=== PATIENT | female | born 1950 | race Caucasian/White ===

== ENCOUNTER 2016-10-07 12:32 | Emergency (ER) | payer MEDICARE, OTHER ==
[2016-10-07 12:38] VITALS: RESP 18
[2016-10-07] MEDS ORDERED: HYDROmorphone 1 MG/ML 1 ML SYRINGE IM STA (12:57)
[2016-10-07] MEDS ORDERED: KETOROLAC 60 MG/2 ML VIAL IM STA (12:57)
--- NOTE | 2016-10-07 13:02 | ED ---
General Adult HPI - General Chief complaint: Back Pain/Injury Stated complaint: Foot Numbness Time Seen by Provider: 10/07/16 12:50 Source: patient, EMS, RN notes reviewed Mode of arrival: EMS Limitations: no limitations - History of Present Illness Initial comments: Patient 66-year-old female seen in the past medical history for chronic back pain, who presents emergency room today by EMS, the chief complaint of exacerbation of her chronic pain. She states she's recently moved. States she' s been going up and down steps and lifting things. States she's had increased pain to the left leg radiating down to her foot. Numbness and tingling sensation. Patient does admit that she sees a neurologist through [facility]. She states she called and was advised coming here to the emergency room visit for pain. Patient states she is taking [place] times at home with little relief. She denies any other complaints or associated symptoms. Denies any bowel or bladder incontinence retention. Denies any saddle she's. Patient does admit that she can take Toradol but only 30 mg IM shot. Requesting Toradol and Dilaudid here in the emergency room for her pain. Patient denies any recent fever, chills, shortness of breath, chest pain, abdominal pain, nausea or vomiting, dysuria or hematuria, constipation or diarrhea, headaches or visual changes, or any other complaints. - Related Data Home Medications Medication Instructions Recorded Confirmed Aspirin EC [Ecotrin Low Dose] 81 mg PO DAILY 04/09/16 05/05/16 Aspirin/Acetaminophen/Caffeine 1 tab PO Q12H PRN 04/09/16 05/05/16 [Excedrin Migraine Caplet] DULoxetine HCL [Cymbalta] 120 mg PO QAM 04/09/16 05/05/16 HYDROcodone/APAP 10-325MG [[place] 1 tab PO Q6H PRN 04/09/16 05/05/16 10-325] Metoprolol Tartrate [Lopressor] 25 mg PO BID 04/09/16 05/05/16 Pantoprazole Sodium [Protonix] 40 mg PO BID 04/09/16 05/05/16 Sucralfate [Carafate] 1 gm PO BID 04/09/16 05/05/16 valACYclovir [Valtrex] 500 mg PO BID 04/09/16 05/05/16 Diazepam [Valium] 5 mg PO TID 05/04/16 05/05/16 Levothyroxine Sodium [Synthroid] 75 mcg PO DAILY 05/04/16 05/05/16 Losartan [Cozaar] 50 mg PO DAILY 05/04/16 05/05/16 Ondansetron [Zofran] 4 mg PO TID PRN 05/04/16 05/05/16 Pain Management Cream 1 - 2 gm TOPICAL QID 05/04/16 05/05/16 diphenhydrAMINE [Benadryl] 25 mg PO HS PRN 05/04/16 05/05/16 buPROPion SR [Wellbutrin Sr] 300 mg PO BID 05/05/16 05/05/16 Previous Rx's Medication Instructions Recorded Hydrochlorothiazide 12.5 mg PO DAILY 10 Days 03/05/16 Allergies Allergy/AdvReac Type Severity Reaction Status Date / Time baclofen Allergy Unknown Verified 05/04/16 20:34 ketorolac [From Toradol] Allergy Unknown Verified 05/04/16 20:34 meperidine [From Demerol] Allergy Unknown Verified 05/04/16 20:34 metoclopramide [From Reglan] Allergy Unknown Verified 05/04/16 20:34 metronidazole [From Flagyl] Allergy Unknown Verified 05/04/16 20:34 morphine Allergy Unknown Verified 05/04/16 20:34 papaya Allergy Unknown Verified 05/04/16 20:34 prednisone Allergy Unknown Verified 05/04/16 20:34 prochlorperazine Allergy Unknown Verified 05/04/16 20:34 [From Compazine] venom-honey bee Allergy Anaphylaxis Verified 05/04/16 20:34 [bee venom (honey bee)] ciprofloxacin [From Cipro] AdvReac INTERACTION Verified 05/04/16 20:34 WITH CYMBALTA trazodone AdvReac SLEEP Verified 05/04/16 20:34 WALKING Review of Systems ROS Statement: Those systems with pertinent positive or pertinent negative responses have been documented in the HPI. ROS Other: All systems not noted in ROS Statement are negative. Past Medical History Past Medical History: Asthma, Cancer, COPD, GERD/Reflux, Hypertension, Pneumonia , Thyroid Disorder Additional Past Medical History / Comment(s): shingles, RT BREAST LUMPECTOMY/ CANCER, THYROID REMOVE, CATARACTS, BRONCHITIS, MONO TEENAGER, LITE CASE OF POLIO AGE 8, MELANOMA SKIN CANCER REMOVED, History of Any Multi-Drug Resistant Organisms: MRSA Date of last positivie culture/infection: 2009 MDRO Source:: LEFT ULNAR BONE Past Surgical History: Appendectomy, Back Surgery, Cholecystectomy, Orthopedic Surgery Additional Past Surgical History / Comment(s): EYE SX FOR LAZY EYE, SX ON TEAR DUCTS, BACK SURGERY MICRO DISC, LT WRIST BROKEN 7 GALLO HAD 13 Surgeries TO CORRECT, left shoulder and humorous shattered from a fall with 2 surgeries to correct, LAPROSCOPIES- BENIGN TUNOR SIZE OF GRAPFRUIT REMOVED AGE 11 OR 1, RT BREAST BX/LUMPECTOMY,LT PINK FINGER SX TO STRAIGHTEN.MELANOMA SKIN CANCER REMOVED. Past Anesthesia/Blood Transfusion Reactions: No Reported Reaction Additional Past Anesthesia/Blood Transfusion Reaction / Comment(s): CLAUSTERPHOBIA Past Psychological History: Anxiety, Depression, PTSD Smoking Status: Never smoker Past Alcohol Use History: Occasional Past Drug Use History: None Reported - Past Family History Mother Family Medical History: Asthma Additional Family Medical History / Comment(s): ETOH/SMOKER Father Family Medical History: Cancer, Liver Disease Additional Family Medical History / Comment(s): ESOPHOGEAL CANCER, ETOH General Exam - General Exam Comments Initial Comments: General: The patient is awake and alert, in no distress, and does not appear acutely ill. Eye: Pupils are equal, round and reactive to light, extra-ocular movements are intact. No nystagmus. There is normal conjunctiva bilaterally. No signs of icterus. Ears, nose, mouth and throat: There are moist mucous membranes and no oral lesions. Neck: The neck is supple, there is no tenderness or JVD. Cardiovascular: There is a regular rate and rhythm. No murmur, rub or gallop is appreciated. Respiratory: Lungs are clear to auscultation, respirations are non-labored, breath sounds are equal. No wheezes, stridor, rales, or rhonchi. Gastrointestinal: Soft, non-distended, non-tender abdomen without masses or organomegaly noted. There is no rebound or guarding present. No CVA tenderness. Bowel sounds are unremarkable. Musculoskeletal: Normal ROM, no tenderness. Strength 5/5. Sensation intact. Pulses equal bilaterally 2+. Shows full range of motion of the left leg and foot. Sensation intact to light touch. Neurological: A&O x 3. CN II-XII intact, There are no obvious motor or sensory deficits. Coordination appears grossly intact. Speech is normal. Skin: Skin is warm and dry and no rashes or lesions are noted. Psychiatric: Cooperative, appropriate mood & affect, normal judgment. Limitations: no limitations Course Vital Signs 10/07/16 12:34 Temperature 97.5 F L Pulse Rate 74 Respiratory 18 Rate Blood Pressure 134/63 O2 Sat by Pulse 100 Oximetry Medical Decision Making - Medical Decision Making Patient given shots of Dilaudid and Toradol here in the emergency room. Patient states she cannot Toradol 30 mg IM. Patient will be discharged home advised to continue with her [place]. Advised follow-up urologist. Advised return here to emergency room if any symptoms increase or worsen or for any other concerns. Disposition Clinical Impression: Acute exacerbation of chronic low back pain Disposition: HOME SELF-CARE Condition: Good Instructions: Acute Low Back Pain (ED) Additional Instructions: Please follow-up with neurologist/family doctor in the next 2 days of symptoms have not improved. Please return to emergency room if the symptoms increase or worsen or for any other concerns. Referrals: Abhishek Pink DO [Primary Care Provider] - 1-2 days Time of Disposition: 13:20
[2016-10-07 14:22] VITALS: BP 165/82; PULSE 69; TEMP 97.3
== END 2016-10-07 14:22 | disposition home or self-care (01) ==
LOC: EEVIPCON 12:32 → EC 12:32
DX: G89.29 Other chronic pain (principal); M54.5 Low back pain; K21.9 Gastro-esophageal reflux disease without esophagitis; I10 Essential (primary) hypertension; E07.9 Disorder of thyroid, unspecified; F32.9 Major depressive disorder, single episode, unspecified; F41.9 Anxiety disorder, unspecified; Z79.82 Long term (current) use of aspirin; Z79.899 Other long term (current) drug therapy; Z88.8 Allergy status to other drugs, medicaments and biological substances; Z88.5 Allergy status to narcotic agent; Z88.6 Allergy status to analgesic agent; Z91.018 Allergy to other foods; Z88.1 Allergy status to other antibiotic agents; Z91.030 Bee allergy status; Z87.01 Personal history of pneumonia (recurrent); Z85.820 Personal history of malignant melanoma of skin
CPT/HCPCS: 99284; 96372 ×2; J1885; J1170

== ENCOUNTER 2016-10-09 02:30 | Emergency (ER) | payer MEDICARE, OTHER ==
[2016-10-09 02:39] VITALS: BP 136/63; PULSE 74; RESP 18; TEMP 98.7
[2016-10-09] MEDS ORDERED: ORPHENADRINE 30 MG/ML 2 ML VIAL IM STA (02:44)
--- NOTE | 2016-10-09 02:59 | ED ---
Back Pain HPI - General Chief Complaint: Back Pain/Injury Stated Complaint: chronic pain Time Seen by Provider: 10/09/16 02:40 Source: patient, RN notes reviewed Limitations: no limitations - History of Present Illness Initial Comments: 66-year-old female presents emergency Department with a chief complaint of left foot numbness. Patient was seen here 2 days ago for similar complaint. Patient states she tripped on the stairs. Patient states that she does suffer from chronic low back pain. Patient states she was concerned due to her symptoms so she thought that she should be evaluated. Patient states she's had no nausea vomiting or diarrhea with this. Patient states the above bladder function no saddle anesthesia. Patient states that where she lives makes her walk up and down the stairs which is irritating her back causing her to have increased numbness and tingling compared to normal. She states the numbness tingling in his typical of her back pain but the fall made her concerned. Patient states the pain is moderate. Patient states she is not currently having any other symptoms at this time.Patient denies any recent fever, chills, shortness of breath, chest pain, back pain, abdominal pain, nausea vomiting, numbness or tingling, dysuria or hematuria, constipation or diarrhea, headaches or visual changes, or any other current symptoms. - Related Data Home Medications Medication Instructions Recorded Confirmed Aspirin EC [Ecotrin Low Dose] 81 mg PO DAILY 04/09/16 05/05/16 Aspirin/Acetaminophen/Caffeine 1 tab PO Q12H PRN 04/09/16 05/05/16 [Excedrin Migraine Caplet] DULoxetine HCL [Cymbalta] 120 mg PO QAM 04/09/16 05/05/16 HYDROcodone/APAP 10-325MG [[place] 1 tab PO Q6H PRN 04/09/16 05/05/16 10-325] Metoprolol Tartrate [Lopressor] 25 mg PO BID 04/09/16 05/05/16 Pantoprazole Sodium [Protonix] 40 mg PO BID 04/09/16 05/05/16 Sucralfate [Carafate] 1 gm PO BID 04/09/16 05/05/16 valACYclovir [Valtrex] 500 mg PO BID 04/09/16 05/05/16 Diazepam [Valium] 5 mg PO TID 05/04/16 05/05/16 Levothyroxine Sodium [Synthroid] 75 mcg PO DAILY 05/04/16 05/05/16 Losartan [Cozaar] 50 mg PO DAILY 05/04/16 05/05/16 Ondansetron [Zofran] 4 mg PO TID PRN 05/04/16 05/05/16 Pain Management Cream 1 - 2 gm TOPICAL QID 05/04/16 05/05/16 diphenhydrAMINE [Benadryl] 25 mg PO HS PRN 05/04/16 05/05/16 buPROPion SR [Wellbutrin Sr] 300 mg PO BID 05/05/16 05/05/16 Previous Rx's Medication Instructions Recorded Hydrochlorothiazide 12.5 mg PO DAILY 10 Days 03/05/16 DULoxetine HCL [Cymbalta] 120 mg PO DAILY 5 Days 10/07/16 Allergies Allergy/AdvReac Type Severity Reaction Status Date / Time baclofen Allergy Unknown Verified 10/09/16 02:37 ketorolac [From Toradol] Allergy Unknown Verified 10/09/16 02:37 meperidine [From Demerol] Allergy Unknown Verified 10/09/16 02:37 metoclopramide [From Reglan] Allergy Unknown Verified 10/09/16 02:37 metronidazole [From Flagyl] Allergy Unknown Verified 10/09/16 02:37 morphine Allergy Unknown Verified 10/09/16 02:37 papaya Allergy Unknown Verified 10/09/16 02:37 prednisone Allergy Unknown Verified 10/09/16 02:37 prochlorperazine Allergy Unknown Verified 10/09/16 02:37 [From Compazine] venom-honey bee Allergy Anaphylaxis Verified 10/09/16 02:37 [bee venom (honey bee)] ciprofloxacin [From Cipro] AdvReac INTERACTION Verified 10/09/16 02:37 WITH CYMBALTA trazodone AdvReac SLEEP Verified 10/09/16 02:37 WALKING Review of Systems ROS Statement: Those systems with pertinent positive or pertinent negative responses have been documented in the HPI. ROS Other: All systems not noted in ROS Statement are negative. Past Medical History Past Medical History: Asthma, Cancer, COPD, GERD/Reflux, Hypertension, Pneumonia , Thyroid Disorder Additional Past Medical History / Comment(s): shingles, RT BREAST LUMPECTOMY/ CANCER, THYROID REMOVE, CATARACTS, BRONCHITIS, MONO TEENAGER, LITE CASE OF POLIO AGE 8, MELANOMA SKIN CANCER REMOVED, History of Any Multi-Drug Resistant Organisms: MRSA Date of last positivie culture/infection: 2009 MDRO Source:: LEFT ULNAR BONE Past Surgical History: Appendectomy, Back Surgery, Cholecystectomy, Orthopedic Surgery Additional Past Surgical History / Comment(s): EYE SX FOR LAZY EYE, SX ON TEAR DUCTS, BACK SURGERY MICRO DISC, LT WRIST BROKEN 9 GALLO HAD 13 Surgeries TO CORRECT, left shoulder and humorous shattered from a fall with 2 surgeries to correct, LAPROSCOPIES- BENIGN TUNOR SIZE OF GRAPFRUIT REMOVED AGE 11 OR 1, RT BREAST BX/LUMPECTOMY,LT PINK FINGER SX TO STRAIGHTEN.MELANOMA SKIN CANCER REMOVED. Past Anesthesia/Blood Transfusion Reactions: No Reported Reaction Additional Past Anesthesia/Blood Transfusion Reaction / Comment(s): CLAUSTERPHOBIA Past Psychological History: Anxiety, Depression, PTSD Smoking Status: Never smoker Past Alcohol Use History: Occasional Past Drug Use History: None Reported - Past Family History Mother Family Medical History: Asthma Additional Family Medical History / Comment(s): ETOH/SMOKER Father Family Medical History: Cancer, Liver Disease Additional Family Medical History / Comment(s): ESOPHOGEAL CANCER, ETOH General Exam Limitations: no limitations General appearance: alert, in no apparent distress Head exam: Present: atraumatic, normocephalic, normal inspection Neck exam: Present: normal inspection. Absent: tenderness, meningismus, lymphadenopathy Respiratory exam: Present: normal lung sounds bilaterally. Absent: respiratory distress, wheezes, rales, rhonchi, stridor Cardiovascular Exam: Present: regular rate, normal rhythm, normal heart sounds. Absent: systolic murmur, diastolic murmur, rubs, gallop, clicks GI/Abdominal exam: Present: soft, normal bowel sounds. Absent: distended, tenderness, guarding, rebound, rigid Back exam: Present: normal inspection, full ROM. Absent: tenderness Neurological exam: Present: alert, oriented X3 Psychiatric exam: Present: normal affect, normal mood Course Vital Signs 10/09/16 02:37 Temperature 98.7 F Pulse Rate 74 Respiratory 18 Rate Blood Pressure 136/63 O2 Sat by Pulse 99 Oximetry Medical Decision Making - Medical Decision Making 58-year-old female presents to the emergency department with a chief complaint of back pain. This time x-rays reviewed and negative. Patient was given an injection of Norflex. We discussed follow-up with her Dr. irma zamoarno. We discussed all the patient's questions. She stated that she understood and she is in agreement with plan. This time she will be discharged home. - Radiology Data Radiology results: report reviewed, image reviewed Disposition Clinical Impression: Acute exacerbation of chronic low back pain Disposition: HOME SELF-CARE Condition: Stable Instructions: Chronic Back Pain (ED) Additional Instructions: Please use medication as discussed. Please follow up with family doctor if symptoms have not improved over the next two days. Please return to the emergency room if your symptoms increase or worsen or for any other concerns. Referrals: Abhishek Pink DO [Primary Care Provider] - 1-2 days Time of Disposition: 03:14
--- NOTE | 2016-10-09 03:12 | XR ---
EXAM: XR Lumbar Spine, 2 or 3 Views CLINICAL HISTORY: Reason: Pain TECHNIQUE: Frontal and lateral views of the lumbar spine. COMPARISON: No relevant prior studies available. FINDINGS: Vertebrae: The bones are osteopenic. Vertebral body heights and alignment are maintained. Mild lower thoracic and lumbar spondylosis, probably greatest at the L5-S1 level where there is associated disc space narrowing and endplate degenerative change. Mild rightward curvature of the lumbar spine. No acute fracture. Disc spaces: See above. Soft tissues: Right upper quadrant clips suggesting cholecystectomy. Ovoid 7 mm radiodense focus overlies the left iliac wing on the frontal view, not seen on the 2 lateral views, may be within bowel or overlying soft tissue such as an injection granuloma versus intraosseous. Gastrointestinal tract: Moderate to large volume of colonic stool present, where included. IMPRESSION: 1. Osteopenia with mild dextroscoliosis and spondylosis. No acute fracture or listhesis. 2. Additional findings includes moderate to large colonic stool burden, as above.
== END 2016-10-09 03:28 | disposition home or self-care (01) ==
LOC: EC 02:30
DX: G89.29 Other chronic pain (principal); M54.5 Low back pain; I10 Essential (primary) hypertension; E07.9 Disorder of thyroid, unspecified; F32.9 Major depressive disorder, single episode, unspecified; Z88.5 Allergy status to narcotic agent; Z91.030 Bee allergy status; Z88.1 Allergy status to other antibiotic agents; Z91.018 Allergy to other foods; Z88.6 Allergy status to analgesic agent; Z88.8 Allergy status to other drugs, medicaments and biological substances; Z79.82 Long term (current) use of aspirin; Z79.899 Other long term (current) drug therapy
CPT/HCPCS: 99283; 96372; 72100; J2360

== ENCOUNTER 2016-11-01 06:10 | Emergency (ER) | payer MEDICARE, OTHER ==
[2016-11-01 06:14] VITALS: RESP 16
[2016-11-01] MEDS ORDERED: KETOROLAC 60 MG/2 ML VIAL IM STA (06:39)
--- NOTE | 2016-11-01 06:45 | ED ---
General Adult HPI - General Chief complaint: Back Pain/Injury Stated complaint: back pain Time Seen by Provider: 11/01/16 06:26 Source: patient, EMS, RN notes reviewed Mode of arrival: EMS Limitations: no limitations - History of Present Illness Initial comments: Patient is a pleasant 66-year-old female presenting to the emergency department with complaints of back and neck pain. Patient has chronic back pain and chronic neck pain. Patient did have a recent fall. Patient also states symptoms are worse from lifting a bag of groceries the other day. Patient is ambulatory without difficulty. Patient has had recent x-rays following her fall. Patient requests a shot of Dilaudid. Patient's guardian did call requesting no narcotics and no benzos be provided. Patient states she can have Toradol as an injection. Patient states she does have an appointment with her new primary care physician today. No weakness. No loss of control of bowel or bladder. Symptoms are chronic. - Related Data Home Medications Medication Instructions Recorded Confirmed Aspirin EC [Ecotrin Low Dose] 81 mg PO DAILY 04/09/16 05/05/16 Aspirin/Acetaminophen/Caffeine 1 tab PO Q12H PRN 04/09/16 05/05/16 [Excedrin Migraine Caplet] DULoxetine HCL [Cymbalta] 120 mg PO QAM 04/09/16 05/05/16 HYDROcodone/APAP 10-325MG [[place] 1 tab PO Q6H PRN 04/09/16 05/05/16 10-325] Metoprolol Tartrate [Lopressor] 25 mg PO BID 04/09/16 05/05/16 Pantoprazole Sodium [Protonix] 40 mg PO BID 04/09/16 05/05/16 Sucralfate [Carafate] 1 gm PO BID 04/09/16 05/05/16 valACYclovir [Valtrex] 500 mg PO BID 04/09/16 05/05/16 Diazepam [Valium] 5 mg PO TID 05/04/16 05/05/16 Levothyroxine Sodium [Synthroid] 75 mcg PO DAILY 05/04/16 05/05/16 Losartan [Cozaar] 50 mg PO DAILY 05/04/16 05/05/16 Ondansetron [Zofran] 4 mg PO TID PRN 05/04/16 05/05/16 Pain Management Cream 1 - 2 gm TOPICAL QID 05/04/16 05/05/16 diphenhydrAMINE [Benadryl] 25 mg PO HS PRN 05/04/16 05/05/16 buPROPion SR [Wellbutrin Sr] 300 mg PO BID 05/05/16 05/05/16 Previous Rx's Medication Instructions Recorded Hydrochlorothiazide 12.5 mg PO DAILY 10 Days 03/05/16 DULoxetine HCL [Cymbalta] 120 mg PO DAILY 5 Days 10/07/16 Allergies Allergy/AdvReac Type Severity Reaction Status Date / Time baclofen Allergy Unknown Verified 11/01/16 06:11 ketorolac [From Toradol] Allergy Unknown Verified 11/01/16 06:11 meperidine [From Demerol] Allergy Unknown Verified 11/01/16 06:11 metoclopramide [From Reglan] Allergy Unknown Verified 11/01/16 06:11 metronidazole [From Flagyl] Allergy Unknown Verified 11/01/16 06:11 morphine Allergy Unknown Verified 11/01/16 06:11 papaya Allergy Unknown Verified 11/01/16 06:11 prednisone Allergy Unknown Verified 11/01/16 06:11 prochlorperazine Allergy Unknown Verified 11/01/16 06:11 [From Compazine] venom-honey bee Allergy Anaphylaxis Verified 11/01/16 06:11 [bee venom (honey bee)] ciprofloxacin [From Cipro] AdvReac INTERACTION Verified 11/01/16 06:11 WITH CYMBALTA trazodone AdvReac SLEEP Verified 11/01/16 06:11 WALKING Review of Systems ROS Statement: Those systems with pertinent positive or pertinent negative responses have been documented in the HPI. ROS Other: All systems not noted in ROS Statement are negative. Constitutional: Denies: fever Eyes: Denies: eye pain ENT: Denies: ear pain Respiratory: Denies: cough Cardiovascular: Denies: chest pain Endocrine: Denies: fatigue Gastrointestinal: Denies: abdominal pain Genitourinary: Denies: dysuria Musculoskeletal: Reports: back pain Skin: Denies: rash Neurological: Denies: weakness, numbness, paresthesias Past Medical History Past Medical History: Asthma, Cancer, COPD, GERD/Reflux, Hypertension, Pneumonia , Thyroid Disorder Additional Past Medical History / Comment(s): shingles, RT BREAST LUMPECTOMY/ CANCER, THYROID REMOVE, CATARACTS, BRONCHITIS, MONO TEENAGER, LITE CASE OF POLIO AGE 8, MELANOMA SKIN CANCER REMOVED, History of Any Multi-Drug Resistant Organisms: MRSA Date of last positivie culture/infection: 2009 MDRO Source:: LEFT ULNAR BONE Past Surgical History: Appendectomy, Back Surgery, Cholecystectomy, Orthopedic Surgery Additional Past Surgical History / Comment(s): EYE SX FOR LAZY EYE, SX ON TEAR DUCTS, BACK SURGERY MICRO DISC, LT WRIST BROKEN 9 GALLO HAD 13 Surgeries TO CORRECT, left shoulder and humorous shattered from a fall with 2 surgeries to correct, LAPROSCOPIES- BENIGN TUNOR SIZE OF GRAPFRUIT REMOVED AGE 11 OR 1, RT BREAST BX/LUMPECTOMY,LT PINK FINGER SX TO STRAIGHTEN.MELANOMA SKIN CANCER REMOVED. Past Anesthesia/Blood Transfusion Reactions: No Reported Reaction Additional Past Anesthesia/Blood Transfusion Reaction / Comment(s): CLAUSTERPHOBIA Past Psychological History: Anxiety, Depression, PTSD Smoking Status: Never smoker Past Alcohol Use History: Occasional Past Drug Use History: None Reported - Past Family History Mother Family Medical History: Asthma Additional Family Medical History / Comment(s): ETOH/SMOKER Father Family Medical History: Cancer, Liver Disease Additional Family Medical History / Comment(s): ESOPHOGEAL CANCER, ETOH General Exam Limitations: no limitations General appearance: alert, in no apparent distress Head exam: Present: atraumatic Eye exam: Present: normal appearance, PERRL ENT exam: Present: normal oropharynx Neck exam: Present: normal inspection. Absent: tenderness Respiratory exam: Present: normal lung sounds bilaterally Cardiovascular Exam: Present: regular rate, normal rhythm GI/Abdominal exam: Present: soft. Absent: tenderness Extremities exam: Present: normal inspection Back exam: Present: tenderness (Mild tenderness to the lumbar spine) Neurological exam: Present: alert. Absent: motor sensory deficit Expanded Sensory exam: Upper Extremity Light Touch: Normal, Lower Extremity Light Touch: Normal Motor strength exam: RUE: 5, LUE: 5, RLE: 5, LLE: 5 Psychiatric exam: Present: normal affect, normal mood Skin exam: Present: normal color Course Vital Signs 11/01/16 06:11 Temperature 98.2 F Pulse Rate 70 Respiratory 16 Rate Blood Pressure 143/65 O2 Sat by Pulse 96 Oximetry Disposition Clinical Impression: Low back pain, Neck pain Disposition: HOME SELF-CARE Condition: Stable Instructions: Chronic Back Pain (ED) Additional Instructions: Please follow-up with your doctor today as planned. Return for weakness, loss of control of bowel or bladder, worsening or changing symptoms or other concerns. Referrals: Abhishek Pink DO [Primary Care Provider] - 1-2 days Time of Disposition: 06:44
[2016-11-01 06:47] VITALS: BP 132/60; PULSE 80; TEMP 97.9
== END 2016-11-01 06:50 | disposition home or self-care (01) ==
LOC: EC 06:10
DX: M54.5 Low back pain (principal); M54.2 Cervicalgia; I10 Essential (primary) hypertension; E07.9 Disorder of thyroid, unspecified; F41.9 Anxiety disorder, unspecified; F32.9 Major depressive disorder, single episode, unspecified; F43.10 Post-traumatic stress disorder, unspecified; K21.9 Gastro-esophageal reflux disease without esophagitis; Z86.14 Personal history of Methicillin resistant Staphylococcus aureus infection; Z79.82 Long term (current) use of aspirin; Z79.899 Other long term (current) drug therapy; Z88.1 Allergy status to other antibiotic agents; Z88.5 Allergy status to narcotic agent; Z88.6 Allergy status to analgesic agent; Z88.8 Allergy status to other drugs, medicaments and biological substances; Z91.018 Allergy to other foods; Z91.040 Latex allergy status; X50.0XXA Overexertion from strenuous movement or load, initial encounter; W19.XXXA Unspecified fall, initial encounter
CPT/HCPCS: 99283; 96372; J1885

== ENCOUNTER 2016-11-14 06:11 | Emergency (ER) | payer MEDICARE, OTHER ==
[2016-11-14 06:14] VITALS: RESP 16
--- NOTE | 2016-11-14 06:21 | ED ---
General Adult HPI - General Source: EMS, RN notes reviewed, old records reviewed Mode of arrival: EMS Limitations: no limitations <Noah Martinez - Last Filed: 11/14/16 06:21> <Noah Quiñonez - Last Filed: 11/14/16 07:34> - General Chief complaint: Back Pain/Injury Stated complaint: Back Pain Time Seen by Provider: 11/14/16 06:13 - History of Present Illness Initial comments: This is a 58-year-old female to the ER for evaluation. Patient presents to the ER today for evaluation of back pain. Severe pain. Chronic pain issues. Patient states she has a history of chronic pain in all pain medication is not helping at this time. No new injuries or trauma. Although she states she had do some extra work yesterday when packing a suitcase. Again no fevers no trauma. (Noah Martinez) - Related Data Home Medications Medication Instructions Recorded Confirmed Aspirin EC [Ecotrin Low Dose] 81 mg PO DAILY 04/09/16 05/05/16 Aspirin/Acetaminophen/Caffeine 1 tab PO Q12H PRN 04/09/16 05/05/16 [Excedrin Migraine Caplet] DULoxetine HCL [Cymbalta] 120 mg PO QAM 04/09/16 05/05/16 HYDROcodone/APAP 10-325MG [[place] 1 tab PO Q6H PRN 04/09/16 05/05/16 10-325] Metoprolol Tartrate [Lopressor] 25 mg PO BID 04/09/16 05/05/16 Pantoprazole Sodium [Protonix] 40 mg PO BID 04/09/16 05/05/16 Sucralfate [Carafate] 1 gm PO BID 04/09/16 05/05/16 valACYclovir [Valtrex] 500 mg PO BID 04/09/16 05/05/16 Diazepam [Valium] 5 mg PO TID 05/04/16 05/05/16 Levothyroxine Sodium [Synthroid] 75 mcg PO DAILY 05/04/16 05/05/16 Losartan [Cozaar] 50 mg PO DAILY 05/04/16 05/05/16 Ondansetron [Zofran] 4 mg PO TID PRN 05/04/16 05/05/16 Pain Management Cream 1 - 2 gm TOPICAL QID 05/04/16 05/05/16 diphenhydrAMINE [Benadryl] 25 mg PO HS PRN 05/04/16 05/05/16 buPROPion SR [Wellbutrin Sr] 300 mg PO BID 05/05/16 05/05/16 Previous Rx's Medication Instructions Recorded Hydrochlorothiazide 12.5 mg PO DAILY 10 Days 03/05/16 DULoxetine HCL [Cymbalta] 120 mg PO DAILY 5 Days 10/07/16 Allergies Allergy/AdvReac Type Severity Reaction Status Date / Time baclofen Allergy Unknown Verified 11/14/16 06:12 ketorolac [From Toradol] Allergy Unknown Verified 11/14/16 06:12 meperidine [From Demerol] Allergy Unknown Verified 11/14/16 06:12 metoclopramide [From Reglan] Allergy Unknown Verified 11/14/16 06:12 metronidazole [From Flagyl] Allergy Unknown Verified 11/14/16 06:12 morphine Allergy Unknown Verified 11/14/16 06:12 papaya Allergy Unknown Verified 11/14/16 06:12 prednisone Allergy Unknown Verified 11/14/16 06:12 prochlorperazine Allergy Unknown Verified 11/14/16 06:12 [From Compazine] venom-honey bee Allergy Anaphylaxis Verified 11/14/16 06:12 [bee venom (honey bee)] ciprofloxacin [From Cipro] AdvReac INTERACTION Verified 11/14/16 06:12 WITH CYMBALTA trazodone AdvReac SLEEP Verified 11/14/16 06:12 WALKING Review of Systems ROS Other: All systems not noted in ROS Statement are negative. <Noah Martinez - Last Filed: 11/14/16 06:21> ROS Other: All systems not noted in ROS Statement are negative. <Noah Quiñonez - Last Filed: 11/14/16 07:34> ROS Statement: Those systems with pertinent positive or pertinent negative responses have been documented in the HPI. Past Medical History Past Medical History: Asthma, Cancer, COPD, GERD/Reflux, Hypertension, Pneumonia , Thyroid Disorder Additional Past Medical History / Comment(s): shingles, RT BREAST LUMPECTOMY/ CANCER, THYROID REMOVE, CATARACTS, BRONCHITIS, MONO TEENAGER, LITE CASE OF POLIO AGE 8, MELANOMA SKIN CANCER REMOVED, History of Any Multi-Drug Resistant Organisms: MRSA Date of last positivie culture/infection: 2009 MDRO Source:: LEFT ULNAR BONE Past Surgical History: Appendectomy, Back Surgery, Cholecystectomy, Orthopedic Surgery Additional Past Surgical History / Comment(s): EYE SX FOR LAZY EYE, SX ON TEAR DUCTS, BACK SURGERY MICRO DISC, LT WRIST BROKEN 9 GALLO HAD 13 Surgeries TO CORRECT, left shoulder and humorous shattered from a fall with 2 surgeries to correct, LAPROSCOPIES- BENIGN TUNOR SIZE OF GRAPFRUIT REMOVED AGE 11 OR 1, RT BREAST BX/LUMPECTOMY,LT PINK FINGER SX TO STRAIGHTEN.MELANOMA SKIN CANCER REMOVED. Past Anesthesia/Blood Transfusion Reactions: No Reported Reaction Additional Past Anesthesia/Blood Transfusion Reaction / Comment(s): CLAUSTERPHOBIA Past Psychological History: Anxiety, Depression, PTSD Smoking Status: Never smoker Past Alcohol Use History: Occasional Past Drug Use History: None Reported - Past Family History Mother Family Medical History: Asthma Additional Family Medical History / Comment(s): ETOH/SMOKER Father Family Medical History: Cancer, Liver Disease Additional Family Medical History / Comment(s): ESOPHOGEAL CANCER, ETOH <Noah Martinez - Last Filed: 11/14/16 06:21> General Exam Limitations: no limitations General appearance: alert, in no apparent distress Head exam: Present: atraumatic, normocephalic, normal inspection Eye exam: Present: normal appearance, PERRL, EOMI. Absent: scleral icterus, conjunctival injection, periorbital swelling ENT exam: Present: normal exam, mucous membranes moist Neck exam: Present: normal inspection. Absent: tenderness, meningismus, lymphadenopathy Respiratory exam: Present: normal lung sounds bilaterally. Absent: respiratory distress, wheezes, rales, rhonchi, stridor Cardiovascular Exam: Present: regular rate, normal rhythm, normal heart sounds. Absent: systolic murmur, diastolic murmur, rubs, gallop, clicks GI/Abdominal exam: Present: soft, normal bowel sounds. Absent: distended, tenderness, guarding, rebound, rigid Extremities exam: Present: normal inspection, full ROM, normal capillary refill. Absent: tenderness, pedal edema, joint swelling, calf tenderness Back exam: Present: normal inspection Neurological exam: Present: alert, oriented X3, CN II-XII intact Psychiatric exam: Present: normal affect, normal mood Skin exam: Present: warm, dry, intact, normal color. Absent: rash <Noah Martinez - Last Filed: 11/14/16 06:21> Course <Noah Martinez - Last Filed: 11/14/16 06:21> <Naoh Quiñonez - Last Filed: 11/14/16 07:34> Vital Signs 11/14/16 06:12 Temperature 98.2 F Pulse Rate 68 Respiratory 16 Rate Blood Pressure 129/56 O2 Sat by Pulse 97 Oximetry - Reevaluation(s) Reevaluation #1: 11/14/16 06:21 Medically cleared for psychiatric evaluation (Noah Martinez) Reevaluation #2: 11/14/16 06:22 Unable to give patient's pain medication secondary to pain contract (Noah Martinez) Disposition <Noah Martinez - Last Filed: 11/14/16 06:21> Time of Disposition: 07:34 <Noah Quiñonez - Last Filed: 11/14/16 07:34> Clinical Impression: Chronic back pain Disposition: HOME SELF-CARE Instructions: Chronic Back Pain (ED) Referrals: Abhishek Pink DO [Primary Care Provider] - 1-2 days
[2016-11-14 08:10] VITALS: BP 120/64; PULSE 86; TEMP 98.1
== END 2016-11-14 08:14 | disposition home or self-care (01) ==
LOC: EC 06:11
DX: G89.29 Other chronic pain (principal); M54.9 Dorsalgia, unspecified; K21.9 Gastro-esophageal reflux disease without esophagitis; I10 Essential (primary) hypertension; F32.9 Major depressive disorder, single episode, unspecified; F41.9 Anxiety disorder, unspecified; F43.10 Post-traumatic stress disorder, unspecified; E07.9 Disorder of thyroid, unspecified; Z79.82 Long term (current) use of aspirin; Z79.899 Other long term (current) drug therapy; Z88.6 Allergy status to analgesic agent; Z88.5 Allergy status to narcotic agent; Z88.8 Allergy status to other drugs, medicaments and biological substances; Z91.030 Bee allergy status; Z88.1 Allergy status to other antibiotic agents; Z85.820 Personal history of malignant melanoma of skin; Z98.890 Other specified postprocedural states
CPT/HCPCS: 99284

== ENCOUNTER 2016-11-16 10:02 | Emergency (ER) | payer MEDICARE, OTHER ==
[2016-11-16] MEDS ORDERED: METHOCARBAMOL 750 MG TAB PO ONE (11:22)
[2016-11-16] MEDS ORDERED: ONDANSETRON ODT 4 MG TAB PO ONE (11:22)
[2016-11-16] MEDS ORDERED: KETOROLAC 30 MG/ML 1 ML VIAL IM ONE (11:22)
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
[2016-11-16 12:42] VITALS: BP 147/64; PULSE 57; RESP 19; TEMP 97.4
== END 2016-11-16 12:43 | disposition home or self-care (01) ==
LOC: EC 10:02
DX: G89.29 Other chronic pain (principal); M54.9 Dorsalgia, unspecified; M54.2 Cervicalgia; M25.572 Pain in left ankle and joints of left foot; J45.909 Unspecified asthma, uncomplicated; J44.9 Chronic obstructive pulmonary disease, unspecified; I10 Essential (primary) hypertension; K21.9 Gastro-esophageal reflux disease without esophagitis; E07.9 Disorder of thyroid, unspecified; Z85.828 Personal history of other malignant neoplasm of skin; Z86.14 Personal history of Methicillin resistant Staphylococcus aureus infection; Z87.891 Personal history of nicotine dependence; F41.9 Anxiety disorder, unspecified; F32.9 Major depressive disorder, single episode, unspecified; F43.10 Post-traumatic stress disorder, unspecified; Z79.51 Long term (current) use of inhaled steroids; Z79.82 Long term (current) use of aspirin; Z79.899 Other long term (current) drug therapy; Z88.1 Allergy status to other antibiotic agents; Z88.5 Allergy status to narcotic agent; Z88.6 Allergy status to analgesic agent; Z91.018 Allergy to other foods; Z91.030 Bee allergy status
CPT/HCPCS: 99283; 96372; J1885

== ENCOUNTER 2016-11-24 10:55 | Inpatient (IN) | payer MEDICARE, MEDICAID ==
--- NOTE | 2016-11-24 13:25 | ED ---
General Adult HPI - General Chief complaint: Psychiatric Symptoms Stated complaint: mental health Time Seen by Provider: 11/24/16 11:23 Source: patient, police, RN notes reviewed Mode of arrival: ambulatory Limitations: no limitations - History of Present Illness Initial comments: 58-year-old female who was petitioned by both police and her guardian for concerns about her ability to take care of herself and bizarre behavior. Patient has a known history of depression.. She has been refusing to eat or drink and has not been taking her medications appropriately at home. This morning she was being evaluated by social work and came aggressive. Police were called patient again was aggressive towards police. She was brought in for psychiatric evaluation clear history is unable to be obtained from the patient. She states she has been prescribed some psychiatric medication in the past including Cymbalta. She is complaining of left wrist pain which is chronic in nature status post multiple surgeries. She denies any jae suicidal or homicidal ideation but states she does feel aggression and would like to "step on people's feet". - Related Data Home Medications Medication Instructions Recorded Confirmed Aspirin EC [Ecotrin Low Dose] 81 mg PO DAILY 04/09/16 11/24/16 HYDROcodone/APAP 10-325MG [[place] 1 tab PO Q6H PRN 04/09/16 11/24/16 10-325] Pantoprazole Sodium [Protonix] 40 mg PO BID 04/09/16 11/24/16 Diazepam [Valium] 5 mg PO BID 05/04/16 11/24/16 diphenhydrAMINE [Benadryl] 50 mg PO Q4H PRN 05/04/16 11/24/16 EPINEPHrine [Epipen 2-River] 0.3 mg IM ONCE PRN 11/16/16 11/24/16 Fluticasone Nasal [place] [Flonase 1 spray EA NOSTRIL BID 11/16/16 11/24/16 Nasal [place]] Levothyroxine Sodium 88 mcg PO DAILY 11/16/16 11/24/16 Loratadine [Claritin] 10 mg PO DAILY 11/16/16 11/24/16 Methenamine Hippurate [Hiprex] 1 gm PO BID 11/16/16 11/24/16 Montelukast [Singulair] 10 mg PO HS 11/16/16 11/24/16 Multivitamins, Thera [Multivitamin 1 tab PO DAILY 11/16/16 11/24/16 (formulary)] Nitroglycerin Sl Tabs [Nitrostat] 0.4 mg SUBLINGUAL Q5M PRN 11/16/16 11/24/16 DULoxetine HCL [Cymbalta] 60 mg PO DAILY 11/24/16 11/24/16 Fluticasone Propionate [Flovent 1 puff INHALATION RT-BID 11/24/16 11/24/16 [place]] Losartan-Hctz 50-12.5 mg [Hyzaar 1 tab PO DAILY 11/24/16 11/24/16 50-12.5] Methocarbamol [Robaxin] 1,000 mg PO QID PRN 11/24/16 11/24/16 Metoprolol/Hydrochlorothiazide 1 tab PO BID 11/24/16 11/24/16 [Lopressor Hct 50-25 mg Tab] buPROPion HCL [Wellbutrin SR] 200 mg PO BID 11/24/16 11/24/16 Previous Rx's Medication Instructions Recorded Hydrochlorothiazide 12.5 mg PO DAILY 10 Days 03/05/16 Allergies Allergy/AdvReac Type Severity Reaction Status Date / Time baclofen Allergy Unknown Verified 11/24/16 14:19 ketorolac [From Toradol] Allergy Unknown Verified 11/24/16 14:19 meperidine [From Demerol] Allergy Unknown Verified 11/24/16 14:19 metoclopramide [From Reglan] Allergy Unknown Verified 11/24/16 14:19 metronidazole [From Flagyl] Allergy Unknown Verified 11/24/16 14:19 morphine Allergy Unknown Verified 11/24/16 14:19 papaya Allergy Unknown Verified 11/24/16 14:19 prednisone Allergy Unknown Verified 11/24/16 14:19 prochlorperazine Allergy Unknown Verified 11/24/16 14:19 [From Compazine] venom-honey bee Allergy Anaphylaxis Verified 11/24/16 14:19 [bee venom (honey bee)] ciprofloxacin [From Cipro] AdvReac INTERACTION Verified 11/24/16 14:19 WITH CYMBALTA trazodone AdvReac SLEEP Verified 11/24/16 14:19 WALKING gain Allergy Rash/Hives Uncoded 11/24/16 11:05 Review of Systems ROS Statement: Those systems with pertinent positive or pertinent negative responses have been documented in the HPI. ROS Other: All systems not noted in ROS Statement are negative. Past Medical History Past Medical History: Asthma, Cancer, COPD, GERD/Reflux, Hypertension, Pneumonia , Thyroid Disorder Additional Past Medical History / Comment(s): shingles, RT BREAST LUMPECTOMY/ CANCER, THYROID REMOVE, CATARACTS, BRONCHITIS, MONO TEENAGER, LITE CASE OF POLIO AGE 8, MELANOMA SKIN CANCER REMOVED, History of Any Multi-Drug Resistant Organisms: MRSA Date of last positivie culture/infection: 2009 MDRO Source:: LEFT ULNAR BONE Past Surgical History: Appendectomy, Back Surgery, Cholecystectomy, Orthopedic Surgery Additional Past Surgical History / Comment(s): EYE SX FOR LAZY EYE, SX ON TEAR DUCTS, BACK SURGERY MICRO DISC, LT WRIST BROKEN 9 AGLLO HAD 13 Surgeries TO CORRECT, left shoulder and humorous shattered from a fall with 2 surgeries to correct, LAPROSCOPIES- BENIGN TUNOR SIZE OF GRAPFRUIT REMOVED AGE 11 OR 1, RT BREAST BX/LUMPECTOMY,LT PINK FINGER SX TO STRAIGHTEN.MELANOMA SKIN CANCER REMOVED. Past Anesthesia/Blood Transfusion Reactions: No Reported Reaction Additional Past Anesthesia/Blood Transfusion Reaction / Comment(s): CLAUSTERPHOBIA Past Psychological History: Anxiety, Depression, PTSD Smoking Status: Never smoker Past Alcohol Use History: Occasional Past Drug Use History: None Reported - Past Family History Mother Family Medical History: Asthma Additional Family Medical History / Comment(s): ETOH/SMOKER Father Family Medical History: Cancer, Liver Disease Additional Family Medical History / Comment(s): ESOPHOGEAL CANCER, ETOH General Exam Limitations: no limitations General appearance: alert, in no apparent distress Head exam: Present: atraumatic, normocephalic Eye exam: Present: normal appearance, PERRL ENT exam: Present: mucous membranes moist Neck exam: Present: normal inspection, full ROM Respiratory exam: Present: normal lung sounds bilaterally. Absent: respiratory distress Cardiovascular Exam: Present: regular rate, normal rhythm GI/Abdominal exam: Present: soft. Absent: distended, tenderness Extremities exam: Present: normal inspection, normal capillary refill. Absent: pedal edema Neurological exam: Present: alert Psychiatric exam: Present: agitated, anxious. Absent: homicidal ideation, suicidal ideation Skin exam: Present: warm, dry Course Vital Signs 11/24/16 11:01 Pulse Rate 94 Respiratory 18 Rate Blood Pressure 139/68 O2 Sat by Pulse 100 Oximetry Medical Decision Making - Medical Decision Making 66-year-old female presenting after being petitioned by both her guardian and police for bizarre behavior and aggression. Patient is not eating or drinking and has not been taking her medications. She does deny suicidal or homicidal ideation. Blood alcohol level is nondetectable, urine drug screen is negative. Patient is currently medically cleared and awaiting psychiatric evaluation. Patient was evaluated by a psychiatric nurse in the emergency department. They agree that the patient should be admitted for further psychiatric care. - Lab Data Lab Results 11/24/16 Range/Units 11:45 Urine Opiates Screen Detected H (NotDetected) Ur Oxycodone Screen Not Detected (NotDetected) Urine Methadone Screen Not Detected (NotDetected) Ur Propoxyphene Screen Not Detected (NotDetected) Ur Barbiturates Screen Not Detected (NotDetected) U Tricyclic Antidepress Not Detected (NotDetected) Ur Phencyclidine Scrn Not Detected (NotDetected) Ur Amphetamines Screen Not Detected (NotDetected) U Methamphetamines Scrn Not Detected (NotDetected) U Benzodiazepines Scrn Detected H (NotDetected) Urine Cocaine Screen Not Detected (NotDetected) U Marijuana (THC) Screen Not Detected (NotDetected) Disposition Clinical Impression: Psychosis, Depression Disposition: ADMITTED IP TO THIS [facility] Condition: Stable Referrals: Julito Pina MD [Primary Care Provider] - 1-2 days Decision to Admit Reason: Admit from EC Decision Date: 11/24/16 Decision Time: 16:10
[2016-11-24] MEDS ORDERED: LORazepam 1 MG TAB PO STA (13:51)
[2016-11-24] MEDS ORDERED: ZIPRASIDONE 20 MG VIAL IM STA (16:31)
[2016-11-24] MEDS ORDERED: MAGNESIUM HYDROXIDE 2,400 MG/10 ML CUP PO PRN (17:13)
[2016-11-24] MEDS: BUDESONIDE 0.5 MG/2 ML NEBU INHALATION SCH (21:26)
[2016-11-24] MEDS: MONTELUKAST 10 MG TAB PO SCH (22:26)
[2016-11-24] MEDS: FLUTICASONE 50MCG/SPRAY NASAL 16GM EA NOSTRIL SCH (22:26)
[2016-11-24] MEDS: PANTOPRAZOLE 40 MG TABLET PO SCH (22:27)
[2016-11-25] MEDS: HYDROcodone/APAP 5-325MG 1 EACH TAB PO PRN ×3 (02:19→18:55)
[2016-11-25] MEDS: LORazepam 1 MG TAB PO PRN ×4 (03:38→23:51)
[2016-11-25] MEDS: LEVOTHYROXINE 88 MCG TAB PO SCH (04:00)
[2016-11-25 08:15] LABS: Basophils # (A) 0.1 k/uL (0-0.2); Basophils % (A) 1 %; CH 30.6; CHCM 32.3; Eosinophils % (A) 1 %; HCT 43.1 % (34.0-46.0); HDW 2.15; HGB 13.8 gm/dL (11.4-16.0); Luc # (Auto) 0.19; Luc % (Auto) 2; Lymphocytes # (A) 2.1 k/uL (1.0-4.8); Lymphocytes % (A) 23 %; MCH 30.5 pg (25.0-35.0); MCHC 32.1 g/dL (31.0-37.0); Mean Platelet Volume 7.6; Monocytes # (A) 0.4 k/uL (0-1.0); Monocytes % (A) 5 %; Neutrophils # (A) 6.4 k/uL (1.3-7.7); Neutrophils % (A) 70 %; RBC 4.54 m/uL (3.80-5.40); RDW 14.8 % (11.5-15.5); WBC 9.1 k/uL (3.8-10.6); WBC (Perox) 9.13
[2016-11-25 08:48] LABS: Potassium 3.3 mmol/L (3.5-5.1); Total Bilirubin 0.6 mg/dL (0.2-1.3); Total Protein 7.6 g/dL (6.3-8.2)
[2016-11-25] MEDS: ASPIRIN 81 MG CHEW PO SCH (08:53)
[2016-11-25] MEDS: PANTOPRAZOLE 40 MG TABLET PO SCH ×2 (08:53→16:43)
[2016-11-25] MEDS: DULoxetine HCL 60 MG CAPSULE.DR PO SCH (08:54)
[2016-11-25] MEDS: FLUTICASONE 50MCG/SPRAY NASAL 16GM EA NOSTRIL SCH ×2 (08:54→20:22)
[2016-11-25] MEDS ORDERED: HYDROCHLOROTHIAZIDE 12.5 MG CAP PO SCH (09:00)
[2016-11-25] MEDS ORDERED: LOSARTAN-HCTZ 50-12.5 MG 1 EACH TAB PO SCH (09:00)
[2016-11-25] MEDS ORDERED: HYDROCHLOROTHIAZIDE 25 MG TAB PO SCH (09:00)
[2016-11-25] MEDS ORDERED: POTASSIUM CHLORIDE ER 20 MEQ TAB.ER PO STA (09:51)
[2016-11-25] MEDS: BUDESONIDE 0.5 MG/2 ML NEBU INHALATION SCH ×2 (10:05→21:02)
[2016-11-25] MEDS: METOPROLOL TARTRATE 50 MG TAB PO SCH ×3 (10:14→21:03)
[2016-11-25] MEDS: MULTIVITAMINS, THERA 1 EACH TAB PO SCH (11:14)
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
[2016-11-25] MEDS ORDERED: LORazepam 2 MG/ML SYRINGE IM PRN (14:35)
[2016-11-25] MEDS: DIAZEPAM 2 MG TAB PO SCH ×2 (15:10→21:05)
[2016-11-25] MEDS: SUCRALFATE 1 GM TAB PO SCH (16:43)
--- NOTE | 2016-11-25 16:54 | XR ---
EXAMINATION TYPE: XR elbow complete LT DATE OF EXAM: 11/25/2016 COMPARISON: NONE HISTORY: Pain TECHNIQUE: 3 views FINDINGS: There is a plate with screws fixing the midshaft of the radius. Elbow joint spaces are fair ly normal. I see no fracture nor dislocation. There is no sign of elbow joint effusion. IMPRESSION: No acute abnormality of the left elbow.
--- NOTE | 2016-11-25 16:54 | XR ---
EXAMINATION TYPE: XR shoulder complete LT DATE OF EXAM: 11/25/2016 COMPARISON: NONE HISTORY: Shoulder pain TECHNIQUE: 3 views FINDINGS: There is some deformity of the humeral neck consistent with old healed fracture. I see no a cute fracture nor dislocation. AC joint is intact. IMPRESSION: No acute abnormality of the left shoulder.
[2016-11-25] MEDS: OLANZapine 5 MG TAB PO SCH (20:20)
[2016-11-25] MEDS: MONTELUKAST 10 MG TAB PO SCH (20:22)
[2016-11-25] MEDS: ACETAMINOPHEN TAB 325 MG TAB PO PRN (23:02)
[2016-11-26] MEDS: LEVOTHYROXINE 88 MCG TAB PO SCH (05:46)
--- NOTE | 2016-11-26 07:49 | CONS ---
REASON FOR CONSULTATION: Medical management of hypertension, GERD and other medical problems. HISTORY OF PRESENT ILLNESS: Ms. Spencer is a 66-year-old female with a known history of bipolar disorder, hypertension, GERD and asthma and other multiple medical problems was brought to the hospital by police and as her guardian has concern about her ability to take care of herself and bizarre behavior. The patient does have history of known history of psychosis and depression. She has been refusing to eat or drink and has not been taking her medications appropriately at home. The patient was evaluated by social work and patient became aggressive. Police were called to patient and patient was aggressive towards the police as well. The patient was brought to the hospital into the psychiatric unit for further evaluation and medication management. Patient says that patient otherwise denied any complaints of chest pain or short of breath now. No nausea, vomiting, abdominal pain. The patient says that she has been having severe GERD symptoms and was taking care of it before. The patient also says that she has history of shingles and has been taking Valtrex chronically every day, twice daily, as per the patient. Next, patient also says that she has been having recurrent urinary tract infections and she is maintained on Hiprex for that and wants to be added the medication to her list during the admission as well. Otherwise, the patient is also complaining of left shoulder pain and elbow pain and says that the patient has history of elbow surgery and shoulder surgery and has metal eduarda in it and the police grabbed her hand to the back, which made her pain worse. Otherwise, the patient denied any fevers or chills. No recent illnesses. Patient has tangential thinking and unable to provide ( ) history. Otherwise, the patient denied any suicidal or homicidal ideation. REVIEW OF SYSTEMS: CONSTITUTIONAL: No fever, no chills. No weakness. RESPIRATORY: No cough or sputum production. CARDIOVASCULAR: No chest pain. No leg swelling. No palpitations. ABDOMEN: Patient denied any nausea, vomiting, abdominal pain. GENITOURINARY: No dysuria noted now. Denied any dysuria. Denied any hematuria. PSYCHIATRIC: Patient has flight of ideas and tangential thinking. MUSCULOSKELETAL: Left shoulder pain. NEUROLOGIC: No headache or dizziness or light-headed. No numbness or tingling. All other 14-point review of systems negative except the above. PAST MEDICAL HISTORY: GERD, asthma, history of shingles, right breast lumpectomy/cancer, hypotension, history of pneumonia, hypothyroidism, cataracts , melanoma skin cancer removed, history of MRSA. PAST SURGICAL HISTORY: Appendectomy, back surgery, cholecystectomy, orthopedic surgery, eye surgery for lazy eye and surgery on tear ducts, back surgery for disc herniation and left wrist broken and had 13 surgeries to correct, left shoulder surgery and humerus shattered from fall with 2 surgeries to correct, laparoscopy benign tumor excised size of grapefruit removed at age 11, right breast biopsy and lumpectomy, left pink finger surgery to straighten, melanoma skin cancer removed. PSYCHOSOCIAL HISTORY: Anxiety, depression, PTSD, bipolar disorder, claustrophobia. SOCIAL HISTORY: Patient never a smoker. Occasional alcohol use. Denied any drugs or IVDU. FAMILY HISTORY: Mother had asthma and alcohol abuse and smoker. Father had cancer and liver disease and esophageal cancer and alcohol abuse. Allergy to TRAZODONE, GAIN, BACLOFEN, KETOROLAC, DEMEROL, REGLAN, FLAGYL, MORPHINE, PAPAYA, PREDNISONE, PROCHLORPERAZINE, VENOM HONEY BEE, CIPROFLOXACIN. Home medications include; 1. Aspirin. 2. Hydrochlorothiazide. 3. Hydrocodone, [place] 10. 4. Protonix. 5. Valium. 6. Benadryl. 7. EpiPen. 8. Nasal spray. 9. Levothyroxine. 10. Loratadine. 11. Hiprex. 12. Singulair. 13. Multivitamin. 14. Nitrostat. 15. Cymbalta. 16. Fluticasone nasal spray. 17. Losartan hydrochlorothiazide. 18 .Methocarbamol. 19. Metoprolol. 20. Hydrochlorothiazide. 21. Wellbutrin. PHYSICAL EXAMINATION: A 66-year-old female lying in bed, awake, alert, oriented x3. Patient does have tangential thinking and unable to focus on single subject. VITALS: Blood pressure is 122/89. Pulse is 83. Respirations are 16. Temperature is afebrile. Pulse ox is saturating at 96% on room air. HEENT: Atraumatic, normocephalic. Neck is supple. No JVD. CVS Exam: S1, S2 heard. No murmurs, no gallop, no rub. LUNGS: Bilateral air entry is present. No wheezing, no crackles, nonlabored breathing. Abdomen is soft. Nontender. Bowel sounds are present. No guarding or rigidity. INSPECTOR CIRCUITRY NEGATIVE: Awake, alert and oriented x3. No focal deficit noted. EXTREMITIES: No edema. Pulses palpable bilaterally. No clubbing or cyanosis. PSYCHIATRIC: Cooperative. Patient has flight of ideas. LABORATORY DATA: WBC 9.1, hemoglobin 13.8, platelets 296. Sodium 142, potassium ( ), chloride 106, bicarb 22. Anion gap 14. BUN 23, creatinine 1.37. GFR is 38. Liver enzymes are not elevated. TSH is 0.688. Albumin 4.8. UDS showed opiates and benzodiazepines. IMPRESSION: 1. Acute psychosis. 2. Bipolar disorder, ( ) manic episode. 3. Gastroesophageal reflux disease. 4. Recurrent urinary tract infection. 5. Left shoulder pain since she was caught by the police with her hands in the back. 6. Hypertension. 7. Asthma, stable. 8. History of shingles. Patient says that she is taking Valtrex every day for that. 9. Hypothyroidism. 10. History of melanoma skin cancer removed. 11. Right breast lumpectomy/cancer resection. 12. Chronic back pain and neck pain. 13. Cervical disc disease. 14. History of posttraumatic stress disorder. 15. Anxiety and depression. DISCUSSION AND PLAN: The patient will be continued on current medications for her psychosis. Will get a left shoulder x-ray and currently the pain management. UA was ordered. Will continue with Carafate at this time. Otherwise will hold hydrochlorothiazide due to hypokalemia and continue the metoprolol at current dose and if the blood pressure is elevated losartan can be added. Will continue the albuterol 2 puffs q.6 hourly as needed. Otherwise, will continue the current management and further recommendations based on the clinical course. MTDD
[2016-11-26] MEDS: DULoxetine HCL 60 MG CAPSULE.DR PO SCH (08:04)
[2016-11-26] MEDS: FLUTICASONE 50MCG/SPRAY NASAL 16GM EA NOSTRIL SCH ×2 (08:04→22:34)
[2016-11-26] MEDS: DIAZEPAM 2 MG TAB PO SCH ×3 (08:04→22:34)
[2016-11-26] MEDS: PANTOPRAZOLE 40 MG TABLET PO SCH ×2 (08:04→18:53)
[2016-11-26] MEDS: SUCRALFATE 1 GM TAB PO SCH ×2 (08:05→18:54)
[2016-11-26] MEDS: METOPROLOL TARTRATE 50 MG TAB PO SCH ×2 (08:05→22:34)
[2016-11-26] MEDS: ASPIRIN 81 MG CHEW PO SCH (08:05)
[2016-11-26] MEDS: HYDROcodone/APAP 5-325MG 1 EACH TAB PO PRN (08:06)
[2016-11-26 09:53] LABS: Calcium 9.8 mg/dL (8.4-10.2)
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
[2016-11-26] MEDS: LORATADINE 10 MG TAB PO SCH (11:12)
[2016-11-26] MEDS: OLANZapine ODT 10 MG TAB PO SCH ×2 (11:12→11:16)
[2016-11-26] MEDS ORDERED: ZIPRASIDONE 20 MG VIAL IM PRN (11:13)
[2016-11-26] MEDS ORDERED: WATER FOR INJECTION, STERILE 10 ML IV ONE (11:33)
[2016-11-26] MEDS: BUDESONIDE 0.5 MG/2 ML NEBU INHALATION SCH ×2 (11:35→19:22)
[2016-11-26] MEDS: MULTIVITAMINS, THERA 1 EACH TAB PO SCH (11:49)
[2016-11-26] MEDS: LORazepam 1 MG TAB PO PRN (11:50)
[2016-11-26] MEDS: MONTELUKAST 10 MG TAB PO SCH (22:34)
[2016-11-26] MEDS: OLANZapine 5 MG TAB PO SCH (22:34)
[2016-11-27] MEDS: HYDROcodone/APAP 5-325MG 1 EACH TAB PO PRN ×3 (02:56→17:53)
[2016-11-27] MEDS: LORazepam 1 MG TAB PO PRN ×3 (02:58→19:37)
[2016-11-27] MEDS: PANTOPRAZOLE 40 MG TABLET PO SCH ×2 (03:08→16:31)
[2016-11-27] MEDS: MONTELUKAST 10 MG TAB PO SCH ×2 (03:09→20:08)
[2016-11-27] MEDS: LEVOTHYROXINE 88 MCG TAB PO SCH (06:10)
[2016-11-27] MEDS: BUDESONIDE 0.5 MG/2 ML NEBU INHALATION SCH ×2 (08:39→21:26)
[2016-11-27] MEDS: SUCRALFATE 1 GM TAB PO SCH ×2 (08:54→16:31)
[2016-11-27] MEDS: DIAZEPAM 2 MG TAB PO SCH ×3 (08:55→21:14)
[2016-11-27] MEDS: FLUTICASONE 50MCG/SPRAY NASAL 16GM EA NOSTRIL SCH ×2 (08:55→20:08)
[2016-11-27] MEDS: METOPROLOL TARTRATE 50 MG TAB PO SCH ×2 (08:55→20:08)
[2016-11-27] MEDS: ASPIRIN 81 MG CHEW PO SCH (08:56)
[2016-11-27] MEDS: LORATADINE 10 MG TAB PO SCH (08:56)
[2016-11-27] MEDS: OLANZapine ODT 10 MG TAB PO SCH (08:56)
--- NOTE | 2016-11-27 10:20 | P.PN ---
Progress Note - Text Interval history: The patient is found in the hallway she follows me to an interview room. She has been admitted for symptoms of clay with psychosis. She is currently being treated with Zyprexa. It appears that she has been intermittently compliant with the Zyprexa and refusing at other times. She is here in voluntarily. She states that she needs to be discharged. She wants to be placed back on her Wellbutrin and Cymbalta. Mental status exam: The patient is a female appearing her stated age she is dressed in hospital attire. Eye contact is appropriate. She has spontaneous speech she is verbose and hyperverbal. She demonstrates tangential thinking and loose associations during the course of the interview. Insight and judgment are impaired. She appears to have some paranoid persecutory thoughts. She demonstrates no verbal or physical aggressiveness. She does have to be interrupted to direct her in the session. She does appear to have manic symptoms. Plan: The patient will continue on her current medications we will encourage compliance. She is here in voluntarily. We will monitor her for safety. Vital signs reviewed.
[2016-11-27] MEDS: MULTIVITAMINS, THERA 1 EACH TAB PO SCH (13:33)
[2016-11-27] MEDS: ACETAMINOPHEN TAB 325 MG TAB PO PRN (17:54)
[2016-11-27] MEDS: OLANZapine 5 MG TAB PO SCH (20:08)
[2016-11-28] MEDS: LEVOTHYROXINE 88 MCG TAB PO SCH (05:36)
[2016-11-28] MEDS: OLANZapine ODT 10 MG TAB PO SCH (07:52)
[2016-11-28] MEDS: LORATADINE 10 MG TAB PO SCH (07:52)
[2016-11-28] MEDS: SUCRALFATE 1 GM TAB PO SCH ×2 (07:52→17:21)
[2016-11-28] MEDS: PANTOPRAZOLE 40 MG TABLET PO SCH ×2 (07:52→17:20)
[2016-11-28] MEDS: METOPROLOL TARTRATE 50 MG TAB PO SCH ×2 (07:52→20:00)
[2016-11-28] MEDS: ASPIRIN 81 MG CHEW PO SCH (07:52)
[2016-11-28] MEDS: DIAZEPAM 2 MG TAB PO SCH ×3 (07:52→21:46)
[2016-11-28] MEDS: BUDESONIDE 0.5 MG/2 ML NEBU INHALATION SCH ×2 (08:01→21:52)
[2016-11-28] MEDS: HYDROcodone/APAP 5-325MG 1 EACH TAB PO PRN ×2 (08:27→17:21)
[2016-11-28] MEDS: FLUTICASONE 50MCG/SPRAY NASAL 16GM EA NOSTRIL SCH ×2 (08:27→20:00)
--- NOTE | 2016-11-28 10:07 | P.PN ---
Progress Note - Text Interval history: The patient is found in her room she sleeping in bed. She reports that she has been sleeping most of the morning. She does report that she got up for breakfast. She states she wants to be placed back on her Cymbalta and Wellbutrin as she anticipates withdrawal from those medications. She states she just needs to be back home with her dog. In reviewing the medications and records more closely it appears the intended scheduled dose for Zyprexa was 5 mg at bedtime. She has been getting a Zyprexa Zydis 10 mg each morning in addition however. This is likely contributing to her sedation at this time. Mental status exam: The patient is alert but tired appearing. She reports a feeling of frustration due to this hospitalization. She demonstrates a lack of insight into her symptoms. She is reporting no suicidal or homicidal ideation intent or plan. She is endorsing no hallucinations or specific delusions however she is underreporting symptoms. Due to her being more tired she has much less spontaneous speech compared to yesterday. Insight and judgment are impaired. She is oriented to person place month and year. She demonstrates no verbal or physical aggressiveness today. No observed abnormal involuntary movements. Plan: The patient will continue on her current medication however we will discontinue the scheduled Zyprexa Zydis 10 mg in the morning. Continue Zyprexa 5 mg at bedtime the evening dose may require further titration. Vital signs reviewed. Is encouraged to attend groups when she feels more awake. She requires continued psychiatric hospitalization. It appears she has been complying with medications so far over the weekend.
[2016-11-28] MEDS: MULTIVITAMINS, THERA 1 EACH TAB PO SCH (11:45)
[2016-11-28] MEDS: NITROGLYCERIN SL TABS 0.4 MG TAB SUBLINGUAL PRN (11:51)
[2016-11-28] MEDS: LORazepam 1 MG TAB PO PRN (14:11)
[2016-11-28] MEDS: ACETAMINOPHEN TAB 325 MG TAB PO PRN ×2 (14:11→19:56)
[2016-11-28] MEDS: NON-FORMULARY DRUG (Methenamine Hippurate [Hiprex] 1 GM) PO SCH ×2 (14:53→20:54)
[2016-11-28] MEDS: MONTELUKAST 10 MG TAB PO SCH (20:00)
[2016-11-28] MEDS: OLANZapine 5 MG TAB PO SCH (20:00)
[2016-11-29] MEDS: LEVOTHYROXINE 88 MCG TAB PO SCH (06:05)
[2016-11-29] MEDS: METOPROLOL TARTRATE 50 MG TAB PO SCH ×2 (08:07→21:13)
[2016-11-29] MEDS: LORATADINE 10 MG TAB PO SCH (08:07)
[2016-11-29] MEDS: SUCRALFATE 1 GM TAB PO SCH ×2 (08:07→17:34)
[2016-11-29] MEDS: PANTOPRAZOLE 40 MG TABLET PO SCH ×2 (08:07→17:34)
[2016-11-29] MEDS: ASPIRIN 81 MG CHEW PO SCH (08:08)
[2016-11-29] MEDS: HYDROcodone/APAP 5-325MG 1 EACH TAB PO PRN ×3 (08:11→23:29)
[2016-11-29] MEDS: DIAZEPAM 2 MG TAB PO SCH ×3 (08:11→21:10)
[2016-11-29] MEDS: BUDESONIDE 0.5 MG/2 ML NEBU INHALATION SCH ×2 (09:23→20:15)
[2016-11-29] MEDS: FLUTICASONE 50MCG/SPRAY NASAL 16GM EA NOSTRIL SCH ×2 (10:03→21:08)
[2016-11-29] MEDS: MULTIVITAMINS, THERA 1 EACH TAB PO SCH (12:33)
[2016-11-29] MEDS: ACETAMINOPHEN TAB 325 MG TAB PO PRN (12:34)
[2016-11-29] MEDS: LORazepam 1 MG TAB PO PRN (14:08)
--- NOTE | 2016-11-29 15:53 | P.PN ---
Progress Note - Text INTERVERAL HISTORY: Patient discussed at treatment team meeting, review of chart , met with patient. Staff reports that she is requesting higher dose of opiate, wanting to speak to her dog. She accepted deferral. [facility] reports she has never been seen only outreach. Patient seated at phone brower, came to office. Stated she wants out of here, refuses to take antipsychotic, explained what the deferral means that she has accepted treatment, she states just put her back on cymbalta and welbutrin, when explaining why antidepressants are contraindicated she states "why would people with better credentials than you not diagnose me with bipolar? I have depression" Patient arguing over every detail, wanting to take medications she believes will help her. When I recommend Abilify she said she had tried it 20 years ago, and had nausea. Patient became tearful asking "why do you hate me, will you give me a hug?" then became emotional stating her mother when she was 23, she had to raise herself, daughter almost in her arms. MENTAL STATUS EXAM: Patient alert and oriented 3, good eye contact, fair groomed in street clothing wearing zeenat short-short, spreading her legs. Speech increased volume, rate and production. + Pressured Coherent, illogical and tangential thought process. +JAZMINE, + FOI. No TB/TW/TI Denied auditory and visual hallucinations. ++paranoid ideation, ++delusions or IOR. Memory appears intact Cognition above average Unable to do memory testing Mood irritable, labile, tearful, affect constricted, congruent with mood. Denies suicidal ideation, denies homicidal ideation. Insight none; Judgment impaired . IMPRESSIONS: 66-year-old female admitted on a petition by the guardian and the show horse driver, brought to the emergency room, was disorganized, tangential, rambling thought process. Angry and demanding. Has received several doses of zyprexa zydis 10mg and 5mg hs but still with pressured speech, tangential TP, tangential, +FOI. less paranoia but still present, Poor history but gives information at times that she has been prescribed a number of medications used for psychosis and clay, ie abilify, thorazine, Now on defferal but still refusing antipsychotic medications. Bipolar, type I, MRE manic, with psychosis PLAN: Patient requires inpatient psychiatric admission for evaluation to clarify diagnosis and to provide treatment. The second CERT was signed by aligner typewriter. Suicide precautions and every 15 minute checks Need to verify what medication she is prescribed, she mentioned Valium so will cover until we have complete information. Called public guardian, today, left v-mail Patient seems to be willing to [facility] for sister and her Phd, ?. Patient took forms but did not return to RN as of yet. Zyprexa zydis prn q6 hr for agitation Zyprexa 5 mg HS Begin Abilify in AM with goal if tolerated to use Abilify Maintena. Will consider lithium once she becomes rational Asked RN to offer patient ativan only after taking zyprexa. Deferred today. Milieu therapy if appropriate
[2016-11-29] MEDS: OLANZapine 5 MG TAB PO SCH (21:12)
[2016-11-29] MEDS: MONTELUKAST 10 MG TAB PO SCH (21:13)
[2016-11-29] MEDS: NITROGLYCERIN SL TABS 0.4 MG TAB SUBLINGUAL PRN (22:34)
[2016-11-29] MEDS: OLANZapine ODT 5 MG TAB PO PRN (22:53)
[2016-11-30] MEDS: ACETAMINOPHEN TAB 325 MG TAB PO PRN ×2 (04:39→13:03)
[2016-11-30] MEDS: LEVOTHYROXINE 88 MCG TAB PO SCH (06:48)
[2016-11-30] MEDS: ASPIRIN 81 MG CHEW PO SCH (09:06)
[2016-11-30] MEDS: SUCRALFATE 1 GM TAB PO SCH ×2 (09:06→16:41)
[2016-11-30] MEDS: FLUTICASONE 50MCG/SPRAY NASAL 16GM EA NOSTRIL SCH ×2 (09:06→21:05)
[2016-11-30] MEDS: DIAZEPAM 2 MG TAB PO SCH ×2 (09:07→21:06)
[2016-11-30] MEDS: MULTIVITAMINS, THERA 1 EACH TAB PO SCH (09:07)
[2016-11-30] MEDS: LORATADINE 10 MG TAB PO SCH (09:07)
[2016-11-30] MEDS: ARIPiprazole 5 MG TAB PO SCH ×3 (09:08→09:55)
[2016-11-30] MEDS: HYDROcodone/APAP 5-325MG 1 EACH TAB PO PRN ×3 (09:09→22:04)
[2016-11-30] MEDS: PANTOPRAZOLE 40 MG TABLET PO SCH ×2 (09:27→16:41)
[2016-11-30] MEDS: METOPROLOL TARTRATE 50 MG TAB PO SCH ×2 (09:52→21:06)
[2016-11-30] MEDS: BUDESONIDE 0.5 MG/2 ML NEBU INHALATION SCH ×2 (12:09→20:15)
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
[2016-11-30] MEDS: OLANZapine ODT 5 MG TAB PO PRN ×2 (13:04→23:08)
[2016-11-30] MEDS ORDERED: OLANZapine ODT 5 MG TAB PO ONE (14:41)
[2016-11-30] MEDS: NITROGLYCERIN SL TABS 0.4 MG TAB SUBLINGUAL PRN (16:25)
[2016-11-30] MEDS: OLANZapine 10 MG TAB PO SCH (21:06)
[2016-11-30] MEDS: MONTELUKAST 10 MG TAB PO SCH (21:07)
[2016-11-30] MEDS: NON-FORMULARY DRUG (Methenamine Hippurate [Hiprex] 1 GM) PO SCH ×2 (21:12→21:14)
[2016-12-01] MEDS: MAG HYDROX/AL HYDROX/SIMETH 30 ML CUP PO PRN ×3 (01:32→17:19)
[2016-12-01] MEDS: LEVOTHYROXINE 88 MCG TAB PO SCH (06:09)
[2016-12-01] MEDS: DIAZEPAM 2 MG TAB PO SCH ×2 (09:23→21:46)
[2016-12-01] MEDS: LORATADINE 10 MG TAB PO SCH (09:23)
[2016-12-01] MEDS: PANTOPRAZOLE 40 MG TABLET PO SCH ×2 (09:24→17:17)
[2016-12-01] MEDS: METOPROLOL TARTRATE 50 MG TAB PO SCH (09:24)
[2016-12-01] MEDS: FLUTICASONE 50MCG/SPRAY NASAL 16GM EA NOSTRIL SCH ×2 (09:24→21:45)
[2016-12-01] MEDS: ASPIRIN 81 MG CHEW PO SCH (09:24)
[2016-12-01] MEDS: SUCRALFATE 1 GM TAB PO SCH ×2 (09:24→17:17)
[2016-12-01] MEDS: HYDROcodone/APAP 5-325MG 1 EACH TAB PO PRN ×3 (09:25→23:26)
[2016-12-01] MEDS: BUDESONIDE 0.5 MG/2 ML NEBU INHALATION SCH ×2 (09:40→21:08)
--- NOTE | 2016-12-01 09:47 | P.PN ---
Progress Note - Text INTERVERAL HISTORY: Patient discussed at treatment team meeting, review of chart , met with patient. Staff reports that she refused Abilify this morning, demanding to speak to her transmission mechanic. Received a list of all of the medications the public guardian's found in her apartment. Patient was in the hallway agreed to come to office. For the first time today she did not start immediately asking her speaking in a demanding manner, she sat down and waited. She reports that last night her roommate had some sort of problem that kept her awake. She would like to be in a single room but states she has not asked for it. Reports that she spoke to her granddaughter, she made a calm and that was difficult to understand, eventually she got back to speaking about her granddaughter and her daughter, that her granddaughter is trying to get patient and patient's daughter back together. Patient laughs about this. Patient reports that she feels that she is drooling we discussed the side effects of Zyprexa that it could be due to that, we reviewed the amount that she took yesterday she took 2 Zyprexa 5 mg zydis PRN + Zyprexa 10 mg HS. we again discussed Zyprexa, its class of medications, this time she did not report any problems with that nor did she report that she did ever been on it in the past. We discussed her blood pressure that it is going up and down, the hospitalist will be in today to give us guidance on her medication. She did ask for more pain medication, again the hospitalist will be managing that. She mentioned that she wants her Valium and her narcotic medication, I explained to her that we were tapering her off of her Valium because the combination of benzodiazepines plus opiates is contraindicated. She did not argue. Patient requests to know when she is going to be discharged I informed her that I could not state at this point to specific date but today she seems to be responding to the medication. MENTAL STATUS EXAM: Patient alert and oriented 3, good eye contact, fair groomed in hospital gown. Speech normal volume, rate and production. No pressured speech. Coherent, logical and tangential thought process. no JAZMINE, + FOI. No TB/TW/TI Denied auditory and visual hallucinations. ++paranoid ideation, ++delusions or IOR. Memory appears intact Cognition above average Mood neutral, euthymic affect full range, normal intensity congruent with mood. Denies suicidal ideation, denies homicidal ideation. Insight none; Judgment impaired . IMPRESSIONS: 66-year-old female admitted on a petition by the guardian and the admissions recruiter, brought to the emergency room, was disorganized, tangential, rambling thought process. Angry and demanding. Has received several doses of zyprexa zydis 10mg and 5mg hs but still with pressured speech, tangential TP, tangential, +FOI. less paranoia but still present, Poor history but gives information at times that she has been prescribed a number of medications used for psychosis and clay, ie abilify, thorazine, Today patient has improved speech, thought process, mood. Bipolar, type I, MRE manic, with psychosis PLAN: Patient requires inpatient psychiatric admission for evaluation to clarify diagnosis and to provide treatment. The second CERT was signed by contract technical writer. Suicide precautions and every 15 minute checks She recieved a total of 20mg zyprexa yesterday, will see if she needs PRN today , will add amount to HS dose. Zyprexa 10mg. Zyprexa zydis prn q6 hr for agitation Will consider lithium once psychosis clears. Reduce valium 1mg bid x 1 more day. Milieu therapy if appropriate
[2016-12-01] MEDS: MULTIVITAMINS, THERA 1 EACH TAB PO SCH (12:02)
[2016-12-01] MEDS ORDERED: LOSARTAN 25 MG TAB PO STA (12:19)
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
--- NOTE | 2016-12-01 12:56 | XR ---
EXAMINATION TYPE: XR chest 1V DATE OF EXAM: 12/01/2016 HISTORY: chest wall pain. REFERENCE: Previous study dated 05/04/2016. FINDINGS: The lungs are clear. Pleural space are clear. The heart is not enlarged. There is a deformi ty of the left humeral neck which was present previously. IMPRESSION: NO ACUTE INTRATHORACIC ABNORMALITY.
[2016-12-01] MEDS: ARIPiprazole 5 MG TAB PO SCH (13:25)
[2016-12-01] MEDS: OLANZapine ODT 5 MG TAB PO PRN (15:57)
[2016-12-01] MEDS: OLANZapine 10 MG TAB PO SCH (21:45)
[2016-12-01] MEDS: MONTELUKAST 10 MG TAB PO SCH (21:45)
[2016-12-01] MEDS: ACETAMINOPHEN TAB 325 MG TAB PO PRN (21:49)
[2016-12-02] MEDS: MAG HYDROX/AL HYDROX/SIMETH 30 ML CUP PO PRN ×3 (01:03→12:09)
[2016-12-02] MEDS: ACETAMINOPHEN TAB 325 MG TAB PO PRN ×3 (05:12→22:43)
[2016-12-02] MEDS: LEVOTHYROXINE 88 MCG TAB PO SCH (05:33)
[2016-12-02 08:58] LABS: Cholesterol 192 mg/dL (<200); HDL Cholesterol 73 mg/dL (40-60); Triglycerides 170 mg/dL (<150)
[2016-12-02] MEDS: BUDESONIDE 0.5 MG/2 ML NEBU INHALATION SCH ×2 (09:06→21:31)
[2016-12-02] MEDS: DIAZEPAM 2 MG TAB PO SCH ×2 (09:15→20:47)
[2016-12-02] MEDS: FLUTICASONE 50MCG/SPRAY NASAL 16GM EA NOSTRIL SCH ×2 (09:15→20:46)
[2016-12-02] MEDS: ARIPiprazole 5 MG TAB PO SCH (09:15)
[2016-12-02] MEDS: SUCRALFATE 1 GM TAB PO SCH ×2 (09:15→17:13)
[2016-12-02] MEDS: PANTOPRAZOLE 40 MG TABLET PO SCH ×2 (09:15→17:13)
[2016-12-02] MEDS: LORATADINE 10 MG TAB PO SCH (09:15)
[2016-12-02] MEDS: ASPIRIN 81 MG CHEW PO SCH (09:16)
[2016-12-02] MEDS: HYDROcodone/APAP 5-325MG 1 EACH TAB PO PRN ×2 (09:19→16:32)
[2016-12-02] MEDS: LOSARTAN 25 MG TAB PO SCH ×2 (09:36→10:10)
[2016-12-02] MEDS ORDERED: LOPERAMIDE 2 MG CAP PO PRN (10:50)
[2016-12-02] MEDS ORDERED: ARIPiprazole 10 MG TAB PO SCH (10:52)
--- NOTE | 2016-12-02 11:03 | ECHOF ---
Referral Reason:chest pain MEASUREMENTS -------- HEIGHT: 165.1 cm WEIGHT: 62.6 kg BP: 120/30 RVIDd: 2.6 cm (< 3.3) IVSd: 0.6 cm (0.6 - 1.1) LVIDd: 3.8 cm (3.9 - 5.3) LVPWd: 1.0 cm (0.6 - 1.1) IVSs: 1.5 cm LVIDs: 2.2 cm LVPWs: 1.2 cm LA Diam: 3.4 cm (2.7 - 3.8) LAESV Index (A-L): 30.62 ml/m Ao Diam: 3.2 cm (2.0 - 3.7) AV Cusp: 1.5 cm (1.5 - 2.6) LA Diam: 3.7 cm (2.7 - 3.8) MV EXCURSION: 23.080 mm (> 18.000) MV EF SLOPE: 70 mm/s (70 - 150) EPSS: 0.4 cm MV E Nicanor: 0.62 m/s MV DecT: 328 ms MV A Nicanor: 0.90 m/s MV E/A Ratio: 0.69 AR PHT: 517 ms RAP: 5.00 mmHg RVSP: 28.79 mmHg FINDINGS -------- Sinus rhythm. This was a technically good study. LV size, wall thickness and systolic function are normal, with an EF greater than 55%. The right ventricle is normal in size. LA is midly dilated 29-33ml/m2. The right atrium was not well visualized. There is mild aortic valve sclerosis. Trace amount of aortic regurgitation. Mild mitral regurgitation is present. Mild tricuspid regurgitation present. There is no evidence of pulmonary hypertension. The right ventricular systolic pressure, as measured by Doppler, is 28.79mmHg. There is no pulmonic regurgitation present. The aortic root size is normal. There is no pericardial effusion. CONCLUSIONS -------- 1. LV size, wall thickness and systolic function are normal, with an EF greater than 55%. 2. LA is midly dilated 29-33ml/m2. 3. There is mild aortic valve sclerosis. 4. Trace amount of aortic regurgitation. 5. Mild mitral regurgitation is present. 6. Mild tricuspid regurgitation present. 7. There is no evidence of pulmonary hypertension. 8. The right ventricular systolic pressure, as measured by Doppler, is 28.79mmHg. 9. The aortic root size is normal. SECURITY SERVICES SPECIALIST: Juliane Toribio RDCS
[2016-12-02] MEDS: MULTIVITAMINS, THERA 1 EACH TAB PO SCH (12:08)
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
[2016-12-02] MEDS: OLANZapine ODT 5 MG TAB PO PRN (14:38)
[2016-12-02] MEDS: NITROGLYCERIN SL TABS 0.4 MG TAB SUBLINGUAL PRN ×2 (14:43→18:10)
[2016-12-02] MEDS: OLANZapine 5 MG TAB PO SCH (20:47)
[2016-12-02] MEDS: AMITRIPTYLINE HCL 10 MG TAB PO SCH (20:48)
[2016-12-02] MEDS: MONTELUKAST 10 MG TAB PO SCH (20:49)
[2016-12-02] MEDS ORDERED: diphenhydrAMINE 25 MG CAP PO SCH (21:00)
[2016-12-03] MEDS: HYDROcodone/APAP 5-325MG 1 EACH TAB PO PRN ×3 (04:35→16:08)
[2016-12-03] MEDS: LEVOTHYROXINE 88 MCG TAB PO SCH (05:32)
[2016-12-03] MEDS: PANTOPRAZOLE 40 MG TABLET PO SCH ×2 (08:08→18:02)
[2016-12-03] MEDS: SUCRALFATE 1 GM TAB PO SCH ×2 (08:09→18:02)
[2016-12-03] MEDS: ASPIRIN 81 MG CHEW PO SCH (09:05)
[2016-12-03] MEDS: LOSARTAN 25 MG TAB PO SCH (09:05)
[2016-12-03] MEDS: LORATADINE 10 MG TAB PO SCH (09:05)
[2016-12-03] MEDS: FLUTICASONE 50MCG/SPRAY NASAL 16GM EA NOSTRIL SCH ×2 (09:05→21:04)
[2016-12-03] MEDS: DIAZEPAM 2 MG TAB PO SCH ×2 (09:05→20:59)
[2016-12-03] MEDS: BUDESONIDE 0.5 MG/2 ML NEBU INHALATION SCH ×2 (09:30→18:55)
[2016-12-03] MEDS ORDERED: METOPROLOL TARTRATE 50 MG TAB PO SCH (10:00)
[2016-12-03] MEDS: MAG HYDROX/AL HYDROX/SIMETH 30 ML CUP PO PRN (12:10)
[2016-12-03] MEDS: MULTIVITAMINS, THERA 1 EACH TAB PO SCH (12:10)
--- NOTE | 2016-12-03 13:19 | P.PN ---
Progress Note - Text INTERVERAL HISTORY: Patient discussed at treatment team meeting, review of chart , met with patient. Staff reports that she has been more accommodating, not demanding. She also is less intrusive. Patient reports that she slept well last night and that she still woke up but she was able to go back to sleep thinks that she got may be just a bit under 8 hours. Today she denies any problems with diarrhea. She thinks that the issue with her mouth is better states that she noted when she first started the Abilify that she thought her room words were being slurred and now she feels as if she can speak better. Examination shows that it still present however much less than yesterday. AIMS exam was positive with movement in her lips, no other involuntary movement was noted. We are in consultation with cardiology due to her elevated pulse rate. Today patient was willing to discuss follow-up treatment with [facility] she says that she is glad for that and that happy that she will have additional help ACT, not denying that she has mental illness today. We again discussed lithium as I told her that it would not cause any problems with involuntary movements, and that if she were to have problems down the road that she should be open to lithium. She is still not willing to consider it. I told Mercedez today that I would be reducing the Valium to once a day. We again discussed the problems with benzodiazepine plus opiates and since I would not be stopping opiates that will be up to her pain management provider in outpatient. MENTAL STATUS EXAM: Patient alert and oriented 3, good eye contact, fair groomed in street clothing, Moris short shorts. Speech normal volume, rate and production. No pressured speech. Coherent, logical and goal directed thought process. no JAZMINE, no FOI. No TB/TW/TI Denied auditory and visual hallucinations. Still with paranoid ideation but it decrease in the intensity, possibly still with delusions regarding her neighbor but at this point hard to prove it is a delusion, no IOR. Memory appears intact Cognition above average Mood neutral, euthymic affect full range, normal intensity congruent with mood. Denies suicidal ideation, denies homicidal ideation. Insight none; Judgment impaired . IMPRESSIONS: 66-year-old female admitted on a petition by the guardian and the hat checker, brought to the emergency room, was disorganized, tangential, rambling thought process. Angry and demanding. Has slowly become less agitated , aggressive verbally intrusive. Tried to use Abilify with the goal of a long- acting Depo meds but due to the presentation of tardive dyskinesia we had to stop Abilify. Zyprexa was increased to 15 mg daily at bedtime. She slept well and she has not needed any of the Zyprexa Zydis, no other meds for agitation or anxiety. No pressured speech no intrusive nose with patients or staff. Her thought process for the most part is goal directed, however she does have circumstantial and over detailed thought process that appears to be her normal baseline. No tangential, no flight of ideas. Still has paranoia related to the neighbor but this could be realistic or exaggeration of reality. Bipolar, type I, MRE manic, with psychosis slowly resolving PLAN: Patient requires inpatient psychiatric admission for evaluation to clarify diagnosis and to provide treatment. The second CERT was signed by publications writer. Suicide precautions and every 15 minute checks Continue Zyprexa 15 mg daily at bedtime Add amitriptyline at bedtime for pain and sedation. Increase diphenhydramine 50mg when necessary insomnia Patient refused to consider lithium, we will still discussed that particularly if we have side effects to Zyprexa . reduce valium 0.5mg QD with plan to discontinue completely prior to discharge. Spoke to SW will notify the public guardians that we believe that she will be clinically stable after another 2 nights of Zyprexa for discharge on Tuesday. Milieu therapy if appropriate
[2016-12-03] MEDS: MONTELUKAST 10 MG TAB PO SCH (20:58)
[2016-12-03] MEDS: OLANZapine 5 MG TAB PO SCH (20:58)
[2016-12-03] MEDS: AMITRIPTYLINE HCL 10 MG TAB PO SCH (20:58)
[2016-12-03] MEDS: METOPROLOL TARTRATE 25 MG TAB PO SCH (20:58)
[2016-12-03] MEDS: ACETAMINOPHEN TAB 325 MG TAB PO PRN (21:07)
[2016-12-03] MEDS: diphenhydrAMINE 50 MG CAP PO PRN (21:51)
[2016-12-04] MEDS: HYDROcodone/APAP 5-325MG 1 EACH TAB PO PRN ×2 (02:12→17:24)
[2016-12-04] MEDS: ACETAMINOPHEN TAB 325 MG TAB PO PRN ×2 (05:34→21:35)
[2016-12-04] MEDS: LEVOTHYROXINE 88 MCG TAB PO SCH (05:43)
[2016-12-04] MEDS: MAG HYDROX/AL HYDROX/SIMETH 30 ML CUP PO PRN ×3 (05:46→23:24)
[2016-12-04] MEDS: SUCRALFATE 1 GM TAB PO SCH ×3 (08:01→21:34)
[2016-12-04] MEDS: PANTOPRAZOLE 40 MG TABLET PO SCH ×2 (08:01→17:19)
[2016-12-04] MEDS: BUDESONIDE 0.5 MG/2 ML NEBU INHALATION SCH ×2 (09:04→19:29)
[2016-12-04] MEDS: FLUTICASONE 50MCG/SPRAY NASAL 16GM EA NOSTRIL SCH ×2 (09:15→21:35)
[2016-12-04] MEDS: ASPIRIN 81 MG CHEW PO SCH (09:16)
[2016-12-04] MEDS: LORATADINE 10 MG TAB PO SCH (09:16)
[2016-12-04] MEDS: METOPROLOL TARTRATE 25 MG TAB PO SCH ×2 (09:17→21:34)
[2016-12-04] MEDS: LOSARTAN 25 MG TAB PO SCH (09:17)
[2016-12-04] MEDS: MULTIVITAMINS, THERA 1 EACH TAB PO SCH (12:20)
--- NOTE | 2016-12-04 16:19 | P.PN ---
Progress Note - Text Date of service: 12/04/2016 Chief complaint: "I feel generally fine but still have weird dreams" Subjective: The patient has been seen today as follow-up, chart reviewed, case discussed with the treatment team. She reports has better sleep last night and as nurses report that patient has 3 hours of sleep last night. The patient endorsed that she feels more stable emotionally and minimized feeling depressed. She denies feeling hopeless or suicidal. She reports her anxiety still there because she feels racing heart, and non-stop thoughts that always feels tense and irritable. The patient denies any manic symptoms. The patient denies any auditory or visual hallucinations. Also the patient denies any paranoid ideation. The nurse reports that patient has been complaining of breast discharge last night (Lactating). Patient denies to me that she saw any discharge but feels breasts are congested and "Nipple ready for nursing." She reports continued to feels indigestion and acid reflux which get helped by Sucralfate. Dose has been adjusted to QID instead of BID. Pt reports have diarrhea since yesterday. Review of other systems: Patient denies any physical symptoms besides what has been mentioned above. No breathing problems, no chest pain reported today. Objective: Vitals has been reviewed. Mental status examination; Appearance: The patient appears stated age, adequately groomed, no specific features. Gait/posture: Normal gait, Normal arm swinging: No abnormal movements. Attitude and behavior: Over engaged, cooperative, normal eye contact. Motor activity: Increased psychomotor activity Speech: Rapid, slightly pressured Mood: Anxious Affect: Constricted Thought form: Circumstantial but goal-directed, linear, coherent. Thought content: Non-delusional, denies suicidal thoughts, denies homicidal thoughts, denies intentions or plans. Perception: Denies any auditory or visual hallucinations Attention: No impairment. Orientation: Patient patient was fully oriented to time place person and situation. Insight: Patient has limited insight about his psychiatric disorder. Judgment: Patient has limited judgment about his psychiatric treatment. Assessment: Bipolar, type I, MRE manic, with psychosis slowly resolving Plan: Continue with inpatient psychiatric hospitalization for monitoring and continue treatment. Continue group therapy and other unit activities. Continue follow up with medical team to address physical problems including coronary heart disease, hypothyroidism, hypertension, asthma, and GERD. Continue psychiatric medications: Zyprexa 15 mg at bedtime as mood stabilizer, and continue Elavil and Benadryl at bedtime. Increase Sucralfate to QID for acid reflux Immodium PRN For diarrhea. Discharge planning is ongoing.
[2016-12-04] MEDS: MONTELUKAST 10 MG TAB PO SCH (21:34)
[2016-12-04] MEDS: DIAZEPAM 2 MG TAB PO SCH (21:34)
[2016-12-04] MEDS: AMITRIPTYLINE HCL 10 MG TAB PO SCH (21:34)
[2016-12-04] MEDS: OLANZapine 5 MG TAB PO SCH (21:34)
[2016-12-04] MEDS: diphenhydrAMINE 50 MG CAP PO PRN (22:07)
[2016-12-05] MEDS: BUDESONIDE 0.5 MG/2 ML NEBU INHALATION SCH ×2 (07:36→21:01)
[2016-12-05] MEDS: ASPIRIN 81 MG CHEW PO SCH (09:34)
[2016-12-05] MEDS: LEVOTHYROXINE 88 MCG TAB PO SCH (09:34)
[2016-12-05] MEDS: SUCRALFATE 1 GM TAB PO SCH ×4 (09:34→22:16)
[2016-12-05] MEDS: LOSARTAN 25 MG TAB PO SCH (09:34)
[2016-12-05] MEDS: PANTOPRAZOLE 40 MG TABLET PO SCH ×2 (09:34→17:46)
[2016-12-05] MEDS: METOPROLOL TARTRATE 25 MG TAB PO SCH ×2 (09:35→21:48)
[2016-12-05] MEDS: FLUTICASONE 50MCG/SPRAY NASAL 16GM EA NOSTRIL SCH ×2 (09:35→21:48)
[2016-12-05] MEDS: LORATADINE 10 MG TAB PO SCH (09:35)
[2016-12-05] MEDS: HYDROcodone/APAP 5-325MG 1 EACH TAB PO PRN ×3 (09:37→23:51)
[2016-12-05] MEDS: MULTIVITAMINS, THERA 1 EACH TAB PO SCH (12:29)
--- NOTE | 2016-12-05 16:37 | XR ---
EXAMINATION TYPE: XR wrist complete LT DATE OF EXAM: 12/05/2016 COMPARISON: NONE HISTORY: 66-year-old female limited range of motion and left wrist pain after twisting injury TECHNIQUE: 4 views FINDINGS: Volar plate and screw fixation of the radial shaft. 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 Mild positive ulnar variance. Moderate to advanced degenerative c hanges of the base of the thumb. No acute fracture, subluxation, or dislocation seen. IMPRESSION: 1. Volar plate and screw fixation of the radial shaft and chronic bony deformity with ununited bone o f the distal third ulnar shaft. 2. 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 No acute osseous abnormality seen. 3. Mild positive ulnar variance. Findings could lead to ulnar impaction and TFC injury.
[2016-12-05] MEDS: MAG HYDROX/AL HYDROX/SIMETH 30 ML CUP PO PRN (18:42)
[2016-12-05] MEDS ORDERED: AMITRIPTYLINE HCL 10 MG TAB PO SCH (21:00)
[2016-12-05] MEDS: DIAZEPAM 2 MG TAB PO SCH (21:46)
[2016-12-05] MEDS: MONTELUKAST 10 MG TAB PO SCH (21:48)
[2016-12-05] MEDS: OLANZapine 5 MG TAB PO SCH (21:50)
[2016-12-06 00:09] VITALS: RESP 16; TEMP 98.2
[2016-12-06] MEDS: diphenhydrAMINE 50 MG CAP PO PRN (01:07)
[2016-12-06] MEDS: ACETAMINOPHEN TAB 325 MG TAB PO PRN ×2 (05:30→11:46)
[2016-12-06] MEDS: LEVOTHYROXINE 88 MCG TAB PO SCH (05:31)
[2016-12-06] MEDS: FLUTICASONE 50MCG/SPRAY NASAL 16GM EA NOSTRIL SCH (09:25)
[2016-12-06] MEDS: LOSARTAN 25 MG TAB PO SCH ×2 (09:26→11:47)
[2016-12-06] MEDS: METOPROLOL TARTRATE 25 MG TAB PO SCH ×2 (09:26→11:45)
[2016-12-06] MEDS: PANTOPRAZOLE 40 MG TABLET PO SCH (09:26)
[2016-12-06] MEDS: SUCRALFATE 1 GM TAB PO SCH ×2 (09:26→11:44)
[2016-12-06] MEDS: ASPIRIN 81 MG CHEW PO SCH (09:26)
[2016-12-06] MEDS: LORATADINE 10 MG TAB PO SCH (09:26)
[2016-12-06] MEDS: HYDROcodone/APAP 5-325MG 1 EACH TAB PO PRN (09:35)
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
[2016-12-06] MEDS: MULTIVITAMINS, THERA 1 EACH TAB PO SCH (11:44)
[2016-12-06] MEDS: MAG HYDROX/AL HYDROX/SIMETH 30 ML CUP PO PRN (11:50)
[2016-12-06 13:30] VITALS: BP 139/64; PULSE 70
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
[2016-12-06] MEDS ORDERED: AMITRIPTYLINE HCL 10 MG TAB PO SCH (21:00)
== END 2016-12-06 15:00 | disposition home or self-care (01) | DRG 885 ==
LOC: EC 10:55 → 3MHU 17:03
PROVIDERS: ADMIT Psychiatry & Neurology Addiction Medicine; ATTEND Psychiatry & Neurology Addiction Medicine
DX: F31.2 Bipolar disorder, current episode manic severe with psychotic features (principal); J44.9 Chronic obstructive pulmonary disease, unspecified; I10 Essential (primary) hypertension; E89.0 Postprocedural hypothyroidism; E87.6 Hypokalemia; F40.240 Claustrophobia; F43.10 Post-traumatic stress disorder, unspecified; G24.01 Drug induced subacute dyskinesia; T43.595A Adverse effect of other antipsychotics and neuroleptics, initial encounter; J45.909 Unspecified asthma, uncomplicated; G47.00 Insomnia, unspecified; G89.29 Other chronic pain; H26.9 Unspecified cataract; K21.9 Gastro-esophageal reflux disease without esophagitis; M25.512 Pain in left shoulder; M25.532 Pain in left wrist; K30 Functional dyspepsia; M54.9 Dorsalgia, unspecified; R07.89 Other chest pain; R19.7 Diarrhea, unspecified; M25.522 Pain in left elbow; M50.30 Other cervical disc degeneration, unspecified cervical region; I25.10 Atherosclerotic heart disease of native coronary artery without angina pectoris; F41.9 Anxiety disorder, unspecified; Z86.14 Personal history of Methicillin resistant Staphylococcus aureus infection; Z85.820 Personal history of malignant melanoma of skin; Z85.850 Personal history of malignant neoplasm of thyroid; Z79.82 Long term (current) use of aspirin; Z79.899 Other long term (current) drug therapy; Z88.1 Allergy status to other antibiotic agents; Z88.5 Allergy status to narcotic agent; Z88.8 Allergy status to other drugs, medicaments and biological substances; Z82.49 Family history of ischemic heart disease and other diseases of the circulatory system; Y92.239 Unspecified place in hospital as the place of occurrence of the external cause
CPT/HCPCS: 71010; 80048; 80053; 80061; 80306; 82075; 84146; 84443; 84484; 85025; 93005; 93306; 96372; 99285

== ENCOUNTER 2016-12-09 00:02 | Emergency (ER) | payer MEDICARE, OTHER ==
[2016-12-09 00:12] VITALS: TEMP 97
[2016-12-09] MEDS ORDERED: ORPHENADRINE 30 MG/ML 2 ML VIAL IM STA (00:34)
--- NOTE | 2016-12-09 01:08 | ED ---
Extremity Problem HPI - General Chief complaint: Extremity Problem,Nontraumatic Stated complaint: joint pain Time Seen by Provider: 12/09/16 00:22 Source: patient Mode of arrival: ambulatory Limitations: no limitations - Related Data Home Medications Medication Instructions Recorded Confirmed Aspirin EC [Ecotrin Low Dose] 81 mg PO DAILY 04/09/16 11/24/16 HYDROcodone/APAP 10-325MG [[place] 1 tab PO Q6H PRN 04/09/16 11/24/16 10-325] Pantoprazole Sodium [Protonix] 40 mg PO BID 04/09/16 11/24/16 diphenhydrAMINE [Benadryl] 50 mg PO Q4H PRN 05/04/16 11/24/16 EPINEPHrine [Epipen 2-River] 0.3 mg IM ONCE PRN 11/16/16 11/24/16 Fluticasone Nasal [place] [Flonase 1 spray EA NOSTRIL BID 11/16/16 11/24/16 Nasal [place]] Levothyroxine Sodium 88 mcg PO DAILY 11/16/16 11/24/16 Loratadine [Claritin] 10 mg PO DAILY 11/16/16 11/24/16 Methenamine Hippurate [Hiprex] 1 gm PO BID 11/16/16 11/24/16 Montelukast [Singulair] 10 mg PO HS 11/16/16 11/24/16 Multivitamins, Thera [Multivitamin 1 tab PO DAILY 11/16/16 11/24/16 (formulary)] Nitroglycerin Sl Tabs [Nitrostat] 0.4 mg SUBLINGUAL Q5M PRN 11/16/16 11/24/16 Fluticasone Propionate [Flovent 1 puff INHALATION RT-BID 11/24/16 11/24/16 Diskus] Losartan-Hctz 50-12.5 mg [Hyzaar 1 tab PO DAILY 11/24/16 11/24/16 50-12.5] Methocarbamol [Robaxin] 1,000 mg PO QID PRN 11/24/16 11/24/16 Metoprolol/Hydrochlorothiazide 1 tab PO BID 11/24/16 11/24/16 [Lopressor Hct 50-25 mg Tab] Previous Rx's Medication Instructions Recorded Amitriptyline HCl [Elavil] 10 mg PO HS #30 tab 12/06/16 OLANZapine [ZyPREXA] 15 mg PO HS #90 tab 12/06/16 diphenhydrAMINE [Benadryl] 50 mg PO HS PRN #30 cap 12/06/16 Allergies Allergy/AdvReac Type Severity Reaction Status Date / Time baclofen Allergy Unknown Verified 12/09/16 00:12 ketorolac [From Toradol] Allergy Unknown Verified 12/09/16 00:12 meperidine [From Demerol] Allergy Unknown Verified 12/09/16 00:12 metoclopramide [From Reglan] Allergy Unknown Verified 12/09/16 00:12 metronidazole [From Flagyl] Allergy Unknown Verified 12/09/16 00:12 morphine Allergy Unknown Verified 12/09/16 00:12 papaya Allergy Unknown Verified 12/09/16 00:12 prednisone Allergy Unknown Verified 12/09/16 00:12 prochlorperazine Allergy Unknown Verified 12/09/16 00:12 [From Compazine] venom-honey bee Allergy Anaphylaxis Verified 12/09/16 00:12 [bee venom (honey bee)] ciprofloxacin [From Cipro] AdvReac INTERACTION Verified 12/09/16 00:12 WITH CYMBALTA trazodone AdvReac SLEEP Verified 12/09/16 00:12 WALKING gain Allergy Rash/Hives Uncoded 12/09/16 00:12 Review of Systems ROS Statement: Those systems with pertinent positive or pertinent negative responses have been documented in the HPI. ROS Other: All systems not noted in ROS Statement are negative. Past Medical History Past Medical History: Asthma, Cancer, COPD, GERD/Reflux, Hypertension, Pneumonia , Thyroid Disorder Additional Past Medical History / Comment(s): shingles, RT BREAST LUMPECTOMY/ CANCER, THYROID REMOVE, CATARACTS, BRONCHITIS, MONO TEENAGER, LITE CASE OF POLIO AGE 8, MELANOMA SKIN CANCER REMOVED, History of Any Multi-Drug Resistant Organisms: MRSA Date of last positivie culture/infection: 2009 MDRO Source:: LEFT ULNAR BONE Past Surgical History: Appendectomy, Back Surgery, Cholecystectomy, Orthopedic Surgery Additional Past Surgical History / Comment(s): EYE SX FOR LAZY EYE, SX ON TEAR DUCTS, BACK SURGERY MICRO DISC, LT WRIST BROKEN 7 GALLO HAD 13 Surgeries TO CORRECT, left shoulder and humorous shattered from a fall with 2 surgeries to correct, LAPROSCOPIES- BENIGN TUNOR SIZE OF GRAPFRUIT REMOVED AGE 11 OR 1, RT BREAST BX/LUMPECTOMY,LT PINK FINGER SX TO STRAIGHTEN.MELANOMA SKIN CANCER REMOVED. Past Anesthesia/Blood Transfusion Reactions: No Reported Reaction Additional Past Anesthesia/Blood Transfusion Reaction / Comment(s): CLAUSTERPHOBIA Past Psychological History: Anxiety, Depression, PTSD Smoking Status: Never smoker Past Alcohol Use History: Occasional Past Drug Use History: None Reported - Past Family History Mother Family Medical History: Asthma Additional Family Medical History / Comment(s): ETOH/SMOKER Father Family Medical History: Cancer, Liver Disease Additional Family Medical History / Comment(s): ESOPHOGEAL CANCER, ETOH General Exam Limitations: no limitations Course Vital Signs 12/09/16 00:08 Temperature 97.0 F L Pulse Rate 102 H Respiratory 18 Rate Blood Pressure 127/72 O2 Sat by Pulse 100 Oximetry Disposition Clinical Impression: Chronic neck pain, Chronic back pain Disposition: HOME SELF-CARE Condition: Fair Instructions: Neck Pain (ED) Referrals: Julito Pina MD [Primary Care Provider] - 1-2 days Govind Stone MD [STAFF PHYSICIAN] - 1-2 days
[2016-12-09 01:23] VITALS: BP 106/56; PULSE 83; RESP 20
== END 2016-12-09 01:22 | disposition home or self-care (01) ==
LOC: EC 00:02
DX: M54.2 Cervicalgia (principal); M54.5 Low back pain; G89.29 Other chronic pain; J44.9 Chronic obstructive pulmonary disease, unspecified; K21.9 Gastro-esophageal reflux disease without esophagitis; I10 Essential (primary) hypertension; E07.9 Disorder of thyroid, unspecified; Z85.3 Personal history of malignant neoplasm of breast; Z88.1 Allergy status to other antibiotic agents; Z88.5 Allergy status to narcotic agent; Z88.6 Allergy status to analgesic agent; Z88.8 Allergy status to other drugs, medicaments and biological substances; Z91.018 Allergy to other foods; Z91.030 Bee allergy status; Z91.09 Other allergy status, other than to drugs and biological substances; Z79.51 Long term (current) use of inhaled steroids; Z79.82 Long term (current) use of aspirin; Z79.899 Other long term (current) drug therapy
CPT/HCPCS: 99283; 96372; J2360

== ENCOUNTER 2016-12-13 21:21 | Emergency (ER) | payer MEDICARE, OTHER ==
[2016-12-13 21:42] VITALS: RESP 18
[2016-12-13 22:26] LABS: Basophils % (A) 1 %; CH 30.1; CHCM 31.9; Eosinophils # (A) 0.2 k/uL (0-0.7); Eosinophils % (A) 4 %; HCT 29.4 % (34.0-46.0); HDW 2.18; Luc # (Auto) 0.16; Luc % (Auto) 4; Lymphocytes # (A) 1.7 k/uL (1.0-4.8); Lymphocytes % (A) 38 %; MCH 30.7 pg (25.0-35.0); MCHC 32.4 g/dL (31.0-37.0); MCV 94.8 fL (80.0-100.0); Mean Platelet Volume 7.2; Monocytes # (A) 0.3 k/uL (0-1.0); Monocytes % (A) 7 %; Neutrophils # (A) 2.2 k/uL (1.3-7.7); Neutrophils % (A) 48 %; WBC 4.6 k/uL (3.8-10.6); WBC (Perox) 4.56
[2016-12-13 22:31] LABS: HGB 9.5 gm/dL (11.4-16.0)
[2016-12-13 22:33] LABS: ALT 33 U/L (9-52); AST 37 U/L (14-36); Alkaline Phosphatase 141 U/L (38-126); Anion Gap 8 mmol/L; Blood Urea Nitrogen 19 mg/dL (7-17); Calcium 7.9 mg/dL (8.4-10.2); Carbon Dioxide 21 mmol/L (22-30); Chloride 112 mmol/L (98-107); Glucose 90 mg/dL (74-99); Non-African American GFR(MDRD) >60 (>60 ml/min/1.73 sqM); Potassium 3.2 mmol/L (3.5-5.1); Sodium 141 mmol/L (137-145); Total Bilirubin 0.2 mg/dL (0.2-1.3); Total Protein 5.4 g/dL (6.3-8.2)
--- NOTE | 2016-12-13 22:35 | ED ---
General Adult HPI - General Chief complaint: Shortness of Breath Stated complaint: swollen feet Time Seen by Provider: 12/13/16 21:30 Source: patient Mode of arrival: EMS Limitations: no limitations - History of Present Illness Initial comments: This is a 66-year-old female with a history of psychiatric illness and angina who presents emergency department for lower extremity edema. She states that she noticed it yesterday. She states that she is having seem associated shortness of breath and some occasional chest pain however states the chest pain is typical for her angina. She denies any exertional chest pain. She states that she has been urinating a little bit less frequently. She is also complaining of little bit of left lower back pain that radiates down her left buttock. She denies any recent travel or surgeries. No history DVT or PE. 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 She does admit to eating more salty food over the last few days. She denies any weight gain. No other complaints. - Related Data Home Medications Medication Instructions Recorded Confirmed Aspirin EC [Ecotrin Low Dose] 81 mg PO DAILY 04/09/16 12/13/16 HYDROcodone/APAP 10-325MG [[place] 1 tab PO Q6H PRN 04/09/16 12/13/16 10-325] Pantoprazole Sodium [Protonix] 40 mg PO BID 04/09/16 12/13/16 EPINEPHrine [Epipen 2-River] 0.3 mg IM ONCE PRN 11/16/16 12/13/16 Fluticasone Nasal [place] [Flonase 1 spray EA NOSTRIL BID 11/16/16 12/13/16 Nasal [place]] Levothyroxine Sodium 88 mcg PO DAILY 11/16/16 12/13/16 Loratadine [Claritin] 10 mg PO DAILY 11/16/16 12/13/16 Methenamine Hippurate [Hiprex] 1 gm PO BID 11/16/16 12/13/16 Montelukast [Singulair] 10 mg PO HS 11/16/16 12/13/16 Multivitamins, Thera [Multivitamin 1 tab PO HS 11/16/16 12/13/16 (formulary)] Nitroglycerin Sl Tabs [Nitrostat] 0.4 mg SUBLINGUAL Q5M PRN 11/16/16 12/13/16 Fluticasone Propionate [Flovent 1 puff INHALATION RT-BID 11/24/16 12/13/16 Diskus] Hydrochlorothiazide [Hydrodiuril] 12.5 mg PO BID 12/13/16 12/13/16 Losartan [Cozaar] 25 mg PO DAILY 12/13/16 12/13/16 Metoprolol Tartrate [Lopressor] 25 mg PO BID 12/13/16 12/13/16 OLANZapine [ZyPREXA] 15 mg PO HS 12/13/16 12/13/16 Sucralfate [Carafate] 1 gm PO ACHS 12/13/16 12/13/16 Previous Rx's Medication Instructions Recorded Amitriptyline HCl [Elavil] 10 mg PO HS #30 tab 12/06/16 diphenhydrAMINE [Benadryl] 50 mg PO HS PRN #30 cap 12/06/16 Methocarbamol [Robaxin] 1,000 mg PO QID #20 tab 12/14/16 Allergies Allergy/AdvReac Type Severity Reaction Status Date / Time metoclopramide [From Reglan] Allergy Anaphylaxis Verified 12/13/16 23:33 metronidazole [From Flagyl] Allergy Anaphylaxis Verified 12/13/16 23:33 morphine Allergy Rash/Hives Verified 12/13/16 23:33 papaya Allergy Rash/Hives Verified 12/13/16 23:33 prednisone Allergy Anaphylaxis Verified 12/13/16 23:33 venom-honey bee Allergy Anaphylaxis Verified 12/13/16 23:33 [bee venom (honey bee)] ketorolac [From Toradol] AdvReac Severe Abdominal Verified 12/13/16 23:33 Pain baclofen AdvReac Twitching Verified 12/13/16 23:33 meperidine [From Demerol] AdvReac Rapid Verified 12/13/16 23:33 Heart Rate Phenothiazines AdvReac Altered Verified 12/13/16 23:33 Mental Status Review of Systems ROS Statement: Those systems with pertinent positive or pertinent negative responses have been documented in the HPI. ROS Other: All systems not noted in ROS Statement are negative. Past Medical History Past Medical History: Asthma, Cancer, COPD, GERD/Reflux, Hypertension, Pneumonia , Thyroid Disorder Additional Past Medical History / Comment(s): shingles, RT BREAST LUMPECTOMY/ CANCER, THYROID REMOVE, CATARACTS, BRONCHITIS, MONO TEENAGER, LITE CASE OF POLIO AGE 8, MELANOMA SKIN CANCER REMOVED, History of Any Multi-Drug Resistant Organisms: MRSA Date of last positivie culture/infection: 2009 MDRO Source:: LEFT ULNAR BONE Past Surgical History: Appendectomy, Back Surgery, Cholecystectomy, Orthopedic Surgery Additional Past Surgical History / Comment(s): EYE SX FOR LAZY EYE, SX ON TEAR DUCTS, BACK SURGERY MICRO DISC, LT WRIST BROKEN 7 [place] HAD 13 Surgeries TO CORRECT, left shoulder and humorous shattered from a fall with 2 surgeries to correct, LAPROSCOPIES- BENIGN TUNOR SIZE OF GRAPFRUIT REMOVED AGE 11 OR 1, RT BREAST BX/LUMPECTOMY,LT PINK FINGER SX TO STRAIGHTEN.MELANOMA SKIN CANCER REMOVED. Past Anesthesia/Blood Transfusion Reactions: No Reported Reaction Additional Past Anesthesia/Blood Transfusion Reaction / Comment(s): CLAUSTERPHOBIA Past Psychological History: Anxiety, Depression, PTSD Smoking Status: Never smoker Past Alcohol Use History: Occasional Past Drug Use History: None Reported - Past Family History Mother Family Medical History: Asthma Additional Family Medical History / Comment(s): ETOH/SMOKER Father Family Medical History: Cancer, Liver Disease Additional Family Medical History / Comment(s): ESOPHOGEAL CANCER, ETOH General Exam - General Exam Comments Initial Comments: Constitutional: Awake alert Appears comfortable Head: Normocephalic atraumatic Eyes: no conjunctival injection No scleral icterus EOMI Neck: No JVD Supple Heart: Regular rate rhythm normal S1-S2 no murmurs Lungs: Clear to auscultation bilaterally No wheezing No rales Abdomen: Soft nondistended nontender Extremities: Edema of the bilateral lower extremities up to the knee DP pulses intact Radial pulses intact Neuro: A&Ox3 No focal neurologic deficits Psych: Appropriate mood and affect Limitations: no limitations Course Vital Signs 12/13/16 21:37 Temperature 97.8 F Pulse Rate 84 Respiratory 18 Rate Blood Pressure 114/59 O2 Sat by Pulse 98 Oximetry EKG Findings - EKG Comments: EKG Findings:: EKG showing normal sinus rhythm with a rate of 80. No abnormal ST segment changes or T-wave inversions. QTC is 477. Other intervals are normal. No ectopy. Medical Decision Making - Medical Decision Making This is a 58-year-old female presents emergency department for lower extremity swelling. She also had some shortness of breath and chest pain. Labwork was unremarkable. X-ray did not show any pulmonary edema. Dopplers of the lower extremity did not reveal DVT. At this time I feel the her symptoms are likely related to venous insufficiency. Told her to elevate her legs and a compression stockings. She can ask her doctor about further diuretic use. Otherwise she was complaining of some sciatic nerve pain. She was given Robaxin in the emergency department and will be discharged with this. Of note her hemoglobin was noted to be lower than her typical for her. She denies any dark or bloody stools. She states that she's had this previously of unclear etiology. Told her that she needs to have her hemoglobin redrawn in the next 2- 3 days by her primary doctor. She'll return if she has worsening or changing symptoms. All questions were answered. - Lab Data Result diagrams: 12/13/16 22:10 12/13/16 22:10 Lab Results 12/13/16 12/13/16 12/13/16 Range/Units 22:10 22:10 22:10 WBC 4.6 (3.8-10.6) k/uL RBC 3.10 L (3.80-5.40) m/uL Hgb 9.5 L D (11.4-16.0) gm/dL Hct 29.4 L (34.0-46.0) % MCV 94.8 (80.0-100.0) fL MCH 30.7 (25.0-35.0) pg MCHC 32.4 (31.0-37.0) g/dL RDW 14.0 (11.5-15.5) % Plt Count 239 (150-450) k/uL Neutrophils % 48 % Lymphocytes % 38 % Monocytes % 7 % Eosinophils % 4 % Basophils % 1 % Neutrophils # 2.2 (1.3-7.7) k/uL Lymphocytes # 1.7 (1.0-4.8) k/uL Monocytes # 0.3 (0-1.0) k/uL Eosinophils # 0.2 (0-0.7) k/uL Basophils # 0.0 (0-0.2) k/uL Sodium 141 (137-145) mmol/L Potassium 3.2 L (3.5-5.1) mmol/L Chloride 112 H (98-107) mmol/L Carbon Dioxide 21 L (22-30) mmol/L Anion Gap 8 mmol/L BUN 19 H (7-17) mg/dL Creatinine 0.88 (0.52-1.04) mg/dL Est GFR (MDRD) Af Amer >60 (>60 ml/min/1.73 sqM) Est GFR (MDRD) Non-Af >60 (>60 ml/min/1.73 sqM) Glucose 90 (74-99) mg/dL Calcium 7.9 L (8.4-10.2) mg/dL Total Bilirubin 0.2 (0.2-1.3) mg/dL AST 37 H (14-36) U/L ALT 33 (9-52) U/L Alkaline Phosphatase 141 H (38-126) U/L NT-Pro-B Natriuret Pep 432 pg/mL Total Protein 5.4 L (6.3-8.2) g/dL Albumin 3.2 L (3.5-5.0) g/dL Disposition Clinical Impression: Leg edema, Radiculopathy, Anemia Disposition: HOME SELF-CARE Condition: Stable Instructions: Leg Edema (ED), Lumbar Radiculopathy (ED), Anemia (ED) Prescriptions: Methocarbamol [Robaxin] 1,000 mg PO QID #20 tab Referrals: Julito Pina MD [Primary Care Provider] - 1-2 days
--- NOTE | 2016-12-13 23:41 | US ---
EXAM: US Duplex Bilateral Lower Extremity Veins CLINICAL HISTORY: Reason: Edema TECHNIQUE: Real-time ultrasound scan of the veins of the bilateral lower extremities with color Doppler flow, spectral waveform analysis and compression. COMPARISON: None FINDINGS: Normal compressibility is demonstrated from the common femoral vein to the calf veins bilaterally. Visualized portions of the external iliac veins bilaterally are also patent and compressible. There is normal response to Valsalva and augmentation. Normal spontaneous phasic flow is noted. IMPRESSION: No evidence of deep venous thrombosis in either lower extremity.
--- NOTE | 2016-12-13 23:43 | XR ---
EXAM: XR Chest, 2 Views CLINICAL HISTORY: Reason: SOB TECHNIQUE: Frontal and lateral views of the chest. COMPARISON: Chest radiograph on 12/01/2016 FINDINGS: Lungs/pleura: Normal. No focal consolidation. No pleural effusion or pneumothorax. Heart/mediastinum: Normal. No cardiomegaly. Soft tissues: Unremarkable. Bones: Remote fracture deformity of the left humeral head. Degenerative changes of the acromioclavicular joints. No acute fracture. Upper abdomen: Cholecystectomy clips in the right upper quadrant. IMPRESSION: No acute disease.
--- NOTE | 2016-12-13 23:46 | XR ---
EXAM: XR Lumbar Spine, 2 or 3 Views CLINICAL HISTORY: Reason: Back spasms TECHNIQUE: Frontal and lateral views of the lumbar spine. COMPARISON: Lumbar spine radiographs on 10/09/2016 FINDINGS: Bones/joints: No acute fracture or subluxation identified. Stable mild degenerative disc disease, most prominent at L5-S1. Soft tissues: Cholecystectomy clips in the right upper quadrant. IMPRESSION: No acute abnormality identified. Similar mild degenerative disc disease.
[2016-12-14] MEDS ORDERED: METHOCARBAMOL 500 MG TAB PO STA (00:17)
[2016-12-14 04:08] VITALS: BP 122/58; PULSE 64; TEMP 97.3
== END 2016-12-14 02:25 | disposition home or self-care (01) ==
LOC: EC 21:21 → EEVIPCON 21:21 → EC 12-14 02:25
DX: M54.10 Radiculopathy, site unspecified (principal); R60.0 Localized edema; D64.9 Anemia, unspecified; R06.02 Shortness of breath; R07.9 Chest pain, unspecified; J45.909 Unspecified asthma, uncomplicated; J44.9 Chronic obstructive pulmonary disease, unspecified; I10 Essential (primary) hypertension; K21.9 Gastro-esophageal reflux disease without esophagitis; F43.10 Post-traumatic stress disorder, unspecified; F32.9 Major depressive disorder, single episode, unspecified; F41.9 Anxiety disorder, unspecified; E07.9 Disorder of thyroid, unspecified; Z85.820 Personal history of malignant melanoma of skin; Z87.01 Personal history of pneumonia (recurrent); Z79.82 Long term (current) use of aspirin; Z79.899 Other long term (current) drug therapy; Z88.5 Allergy status to narcotic agent; Z91.018 Allergy to other foods; Z88.6 Allergy status to analgesic agent; Z88.8 Allergy status to other drugs, medicaments and biological substances; Z91.030 Bee allergy status
CPT/HCPCS: 36415; 71020; 72100; 80053; 83880; 85025; 93005; 93970; 99285

== ENCOUNTER 2016-12-21 15:41 | Emergency (ER) | payer MEDICARE, OTHER ==
[2016-12-21 15:54] VITALS: RESP 18
--- NOTE | 2016-12-21 16:55 | ED ---
General Adult HPI - General Chief complaint: Recheck/Abnormal Lab/Rx Stated complaint: GI Bleed Time Seen by Provider: 12/21/16 15:56 Source: patient Mode of arrival: ambulatory Limitations: no limitations - History of Present Illness Initial comments: Patient is a 66 yo female with extensive medical and psychological history who presents to the ED today via private vehicle for evaluation of fatigue. Patient states she was recently in an inpatient psychiatric unit, while inpatient she was told that she had abnormal labs and needed to follow up with her primary care physician. Mercedez reports that since discharge she has called her primary care physician's office but been unable to establish a follow-up visit. She reports she called her primary care office today advising that she is feeling very fatigued and was concerned about her medications. They advised her to come to the emergency department for further evaluation. Patient states that she's been feeling very fatigued, she reports she has no energy and feels lightheaded all times. She has felt this way since leaving the hospital but has progressively gotten worse. In addition she feels like her lower extremities are becoming more swollen. 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 Patient states she is worried she is not taking enough of her water pill. Patient denies any bleeding, bleeding from the gums or nose bleeding, any easy bruising. She reports she had a normal bowel movement yesterday, she denies any hematuria. She denies any nausea or vomiting, chest pain, palpitations or shortness of breath. She denies fevers but reports she is always chilled, however this is unchanged for her recently. - Related Data Home Medications Medication Instructions Recorded Confirmed Aspirin EC [Ecotrin Low Dose] 81 mg PO DAILY 04/09/16 12/21/16 HYDROcodone/APAP 10-325MG [[place] 1 tab PO Q6H PRN 04/09/16 12/21/16 10-325] Pantoprazole Sodium [Protonix] 40 mg PO BID 04/09/16 12/21/16 EPINEPHrine [Epipen 2-River] 0.3 mg IM ONCE PRN 11/16/16 12/21/16 Fluticasone Nasal [place] [Flonase 1 spray EA NOSTRIL BID 11/16/16 12/21/16 Nasal [place]] Levothyroxine Sodium 88 mcg PO DAILY 11/16/16 12/21/16 Loratadine [Claritin] 10 mg PO DAILY 11/16/16 12/21/16 Methenamine Hippurate [Hiprex] 1 gm PO BID 11/16/16 12/21/16 Montelukast [Singulair] 10 mg PO HS 11/16/16 12/21/16 Nitroglycerin Sl Tabs [Nitrostat] 0.4 mg SUBLINGUAL Q5M PRN 11/16/16 12/21/16 Fluticasone Propionate [Flovent 1 puff INHALATION RT-BID 11/24/16 12/21/16 Diskus] Hydrochlorothiazide [Hydrodiuril] 12.5 mg PO BID 12/13/16 12/21/16 Losartan [Cozaar] 25 mg PO DAILY 12/13/16 12/21/16 Metoprolol Tartrate [Lopressor] 25 mg PO BID 12/13/16 12/21/16 OLANZapine [ZyPREXA] 15 mg PO HS 12/13/16 12/21/16 Sucralfate [Carafate] 1 gm PO ACHS 12/13/16 12/21/16 Ondansetron [Zofran] 4 mg PO Q4H PRN 12/21/16 12/21/16 valACYclovir [Valtrex] 500 mg PO BID 12/21/16 12/21/16 Previous Rx's Medication Instructions Recorded Amitriptyline HCl [Elavil] 10 mg PO HS #30 tab 12/06/16 diphenhydrAMINE [Benadryl] 50 mg PO HS PRN #30 cap 12/06/16 Methocarbamol [Robaxin] 1,000 mg PO QID #20 tab 12/14/16 Cephalexin [Keflex] 500 mg PO Q12HR #14 cap 12/21/16 Allergies Allergy/AdvReac Type Severity Reaction Status Date / Time metoclopramide [From Reglan] Allergy Anaphylaxis Verified 12/21/16 16:25 metronidazole [From Flagyl] Allergy Anaphylaxis Verified 12/21/16 16:25 morphine Allergy Rash/Hives Verified 12/21/16 16:25 papaya Allergy Rash/Hives Verified 12/21/16 16:25 prednisone Allergy Anaphylaxis Verified 12/21/16 16:25 venom-honey bee Allergy Anaphylaxis Verified 12/21/16 16:25 [bee venom (honey bee)] ketorolac [From Toradol] AdvReac Severe Abdominal Verified 12/21/16 16:25 Pain baclofen AdvReac Twitching Verified 12/21/16 16:25 meperidine [From Demerol] AdvReac Rapid Verified 12/21/16 16:25 Heart Rate Phenothiazines AdvReac Altered Verified 12/21/16 16:25 Mental Status Review of Systems ROS Statement: Those systems with pertinent positive or pertinent negative responses have been documented in the HPI. ROS Other: All systems not noted in ROS Statement are negative. Constitutional: Reports: chills. Denies: fever, weakness Eyes: Denies: vision change ENT: Denies: ear pain, throat pain, hearing loss Respiratory: Denies: cough, dyspnea Cardiovascular: Reports: edema. Denies: chest pain, palpitations Endocrine: Reports: fatigue Gastrointestinal: Denies: abdominal pain, nausea, vomiting, diarrhea, constipation, hematemesis, melena, hematochezia Genitourinary: Denies: dysuria, frequency, hematuria Musculoskeletal: Denies: back pain Skin: Denies: rash, lesions Neurological: Denies: headache Psychiatric: Denies: anxiety Hematological/Lymphatic: Denies: easy bleeding, easy bruising Past Medical History Past Medical History: Asthma, Cancer, COPD, GERD/Reflux, Hypertension, Pneumonia , Thyroid Disorder Additional Past Medical History / Comment(s): shingles, RT BREAST LUMPECTOMY/ CANCER, THYROID REMOVE, CATARACTS, BRONCHITIS, MONO TEENAGER, LITE CASE OF POLIO AGE 8, MELANOMA SKIN CANCER REMOVED, History of Any Multi-Drug Resistant Organisms: MRSA Date of last positivie culture/infection: 2009 MDRO Source:: LEFT ULNAR BONE Past Surgical History: Appendectomy, Back Surgery, Cholecystectomy, Orthopedic Surgery Additional Past Surgical History / Comment(s): EYE SX FOR LAZY EYE, SX ON TEAR DUCTS, BACK SURGERY MICRO DISC, LT WRIST BROKEN 7 GALLO HAD 13 Surgeries TO CORRECT, left shoulder and humorous shattered from a fall with 2 surgeries to correct, LAPROSCOPIES- BENIGN TUNOR SIZE OF GRAPFRUIT REMOVED AGE 11 OR 1, RT BREAST BX/LUMPECTOMY,LT PINK FINGER SX TO STRAIGHTEN.MELANOMA SKIN CANCER REMOVED. Past Anesthesia/Blood Transfusion Reactions: No Reported Reaction Additional Past Anesthesia/Blood Transfusion Reaction / Comment(s): CLAUSTERPHOBIA Past Psychological History: Anxiety, Depression, PTSD Smoking Status: Never smoker Past Alcohol Use History: Occasional Past Drug Use History: None Reported - Past Family History Mother Family Medical History: Asthma Additional Family Medical History / Comment(s): ETOH/SMOKER Father Family Medical History: Cancer, Liver Disease Additional Family Medical History / Comment(s): ESOPHOGEAL CANCER, ETOH General Exam Limitations: no limitations General appearance: alert, in no apparent distress Head exam: Present: atraumatic, normocephalic Eye exam: Present: normal appearance, PERRL, EOMI. Absent: scleral icterus, conjunctival injection, periorbital swelling ENT exam: Present: normal exam, mucous membranes moist, TM's normal bilaterally , normal external ear exam Neck exam: Present: normal inspection. Absent: tenderness, meningismus, lymphadenopathy Respiratory exam: Present: normal lung sounds bilaterally. Absent: respiratory distress, wheezes, rales, rhonchi, stridor Cardiovascular Exam: Present: regular rate, normal rhythm, normal heart sounds. Absent: systolic murmur, diastolic murmur, rubs, gallop, clicks GI/Abdominal exam: Present: soft, normal bowel sounds. Absent: distended, tenderness, guarding, rebound, rigid Extremities exam: Present: normal inspection, full ROM, normal capillary refill , pedal edema (1+ pitting edema bilateral lower extremities). Absent: tenderness, joint swelling, calf tenderness Back exam: Present: normal inspection Neurological exam: Present: alert, oriented X3, CN II-XII intact Psychiatric exam: Absent: agitated, anxious Skin exam: Present: warm, dry, intact, normal color. Absent: rash Course Vital Signs 12/21/16 12/21/16 15:49 18:08 Temperature 98.3 F 98.7 F Pulse Rate 83 78 Respiratory 18 18 Rate Blood Pressure 128/56 125/56 O2 Sat by Pulse 96 97 Oximetry Medical Decision Making - Medical Decision Making Patient was seen and evaluated, triage vital signs were reviewed History was obtained from the patient and review of medical record Patient with concern for worsening fatigue, bilateral lower extremity edema Labs and venous Dopplers were ordered for evaluation Patient requesting icewater and something to eat, stating she feels like part of why she feels worsening fatigue today she hasn't had anything to eat Regular diet ordered Patient states she takes norco 3x daily and needs norco, per patient's guardian she is not to receive any extra doses of narcotics. Patient expressed understanding of this request. Labs with improving anemia UA with evidence of UTI - Keflex ordered Bilateral venous dopplers with no acute DVT Results were discussed with patient who expressed relief that her labs are improving. Expresses understanding that she needs to follow up with PCP for repeat labs including UA for evaluation of successful therapy. All questions pertaining to care were answered to the best of my ability. The patient was discharged home with prescription for PO Keflex and instructions to return to the ED for any acute worsening of symptoms or development of new or concerning symptoms. - Lab Data Result diagrams: 12/21/16 17:08 12/21/16 17:08 Lab Results 12/21/16 12/21/16 12/21/16 Range/Units 17:08 17:08 17:08 WBC 5.3 (3.8-10.6) k/uL RBC 3.28 L (3.80-5.40) m/uL Hgb 9.9 L (11.4-16.0) gm/dL Hct 31.4 L (34.0-46.0) % MCV 95.7 (80.0-100.0) fL MCH 30.2 (25.0-35.0) pg MCHC 31.6 (31.0-37.0) g/dL RDW 14.7 (11.5-15.5) % Plt Count 261 (150-450) k/uL Neutrophils % 57 % Lymphocytes % 24 % Monocytes % 9 % Eosinophils % 6 % Basophils % 1 % Neutrophils # 3.0 (1.3-7.7) k/uL Lymphocytes # 1.3 (1.0-4.8) k/uL Monocytes # 0.5 (0-1.0) k/uL Eosinophils # 0.3 (0-0.7) k/uL Basophils # 0.0 (0-0.2) k/uL Sodium 140 (137-145) mmol/L Potassium 4.2 (3.5-5.1) mmol/L Chloride 105 (98-107) mmol/L Carbon Dioxide 25 (22-30) mmol/L Anion Gap 10 mmol/L BUN 28 H (7-17) mg/dL Creatinine 0.90 (0.52-1.04) mg/dL Est GFR (MDRD) Af Amer >60 (>60 ml/min/1.73 sqM) Est GFR (MDRD) Non-Af >60 (>60 ml/min/1.73 sqM) Glucose 89 (74-99) mg/dL Calcium 9.0 (8.4-10.2) mg/dL NT-Pro-B Natriuret Pep 580 pg/mL Urine Color Urine Appearance (Clear) Urine pH (5.0-8.0) Ur Specific [place] (1.001-1.035) Urine Protein (Negative) Urine Glucose (UA) (Negative) Urine Ketones (Negative) Urine Blood (Negative) Urine Nitrite (Negative) Urine Bilirubin (Negative) Urine Urobilinogen (<2.0) mg/dL Ur Leukocyte Esterase (Negative) Urine RBC (0-5) /hpf Urine WBC (0-5) /hpf Ur Squamous Epith Cells (0-4) /hpf Urine Bacteria (None) /hpf Hyaline Casts (0-2) /lpf Urine Mucus (None) /hpf 12/21/16 Range/Units 17:18 WBC (3.8-10.6) k/uL RBC (3.80-5.40) m/uL Hgb (11.4-16.0) gm/dL Hct (34.0-46.0) % MCV (80.0-100.0) fL MCH (25.0-35.0) pg MCHC (31.0-37.0) g/dL RDW (11.5-15.5) % Plt Count (150-450) k/uL Neutrophils % % Lymphocytes % % Monocytes % % Eosinophils % % Basophils % % Neutrophils # (1.3-7.7) k/uL Lymphocytes # (1.0-4.8) k/uL Monocytes # (0-1.0) k/uL Eosinophils # (0-0.7) k/uL Basophils # (0-0.2) k/uL Sodium (137-145) mmol/L Potassium (3.5-5.1) mmol/L Chloride (98-107) mmol/L Carbon Dioxide (22-30) mmol/L Anion Gap mmol/L BUN (7-17) mg/dL Creatinine (0.52-1.04) mg/dL Est GFR (MDRD) Af Amer (>60 ml/min/1.73 sqM) Est GFR (MDRD) Non-Af (>60 ml/min/1.73 sqM) Glucose (74-99) mg/dL Calcium (8.4-10.2) mg/dL NT-Pro-B Natriuret Pep pg/mL Urine Color Yellow Urine Appearance Cloudy H (Clear) Urine pH 6.5 (5.0-8.0) Ur Specific [place] 1.018 (1.001-1.035) Urine Protein Negative (Negative) Urine Glucose (UA) Negative (Negative) Urine Ketones Negative (Negative) Urine Blood Negative (Negative) Urine Nitrite Negative (Negative) Urine Bilirubin Negative (Negative) Urine Urobilinogen <2.0 (<2.0) mg/dL Ur Leukocyte Esterase Large H (Negative) Urine RBC 6 H (0-5) /hpf Urine WBC 16 H (0-5) /hpf Ur Squamous Epith Cells <1 (0-4) /hpf Urine Bacteria Occasional H (None) /hpf Hyaline Casts 1 (0-2) /lpf Urine Mucus Rare H (None) /hpf Disposition Clinical Impression: UTI (urinary tract infection), Chronic anemia Disposition: HOME SELF-CARE Condition: Good Instructions: Urinary Tract Infection in Women (ED), Iron Deficiency Anemia (ED ) Prescriptions: Cephalexin [Keflex] 500 mg PO Q12HR #14 cap Referrals: Julito Pina MD [Primary Care Provider] - 1-2 days Decision Time: 17:51
--- NOTE | 2016-12-21 17:11 | US ---
EXAMINATION TYPE: US venous doppler duplex LE BI DATE OF EXAM: 12/21/2016 4:51 PM COMPARISON: NONE CLINICAL HISTORY: Pain, swelling. SIDE PERFORMED: Bilateral TECHNIQUE: The lower extremity deep venous system is examined utilizing real time linear array sonog tiffany with graded compression, doppler sonography and color-flow sonography. VESSELS IMAGED: External Iliac Vein (EIV) Common Femoral Vein Deep Femoral Vein Greater Saphenous Vein * Femoral Vein Popliteal Vein Small Saphenous Vein * Proximal Calf Veins (* superficial vessels) Right Leg: Negative for DVT Left Leg: Negative for DVT IMPRESSION: Normal exam. No evidence of deep venous thrombosis in both legs.
[2016-12-21 17:19] LABS: Basophils % (A) 1 %; CH 30.6; CHCM 32.2; Eosinophils # (A) 0.3 k/uL (0-0.7); Eosinophils % (A) 6 %; HCT 31.4 % (34.0-46.0); HDW 2.24; HGB 9.9 gm/dL (11.4-16.0); Luc # (Auto) 0.21; Luc % (Auto) 4; Lymphocytes # (A) 1.3 k/uL (1.0-4.8); Lymphocytes % (A) 24 %; MCH 30.2 pg (25.0-35.0); MCHC 31.6 g/dL (31.0-37.0); MCV 95.7 fL (80.0-100.0); Mean Platelet Volume 7.3; Monocytes # (A) 0.5 k/uL (0-1.0); Monocytes % (A) 9 %; Neutrophils % (A) 57 %; RBC 3.28 m/uL (3.80-5.40); RDW 14.7 % (11.5-15.5); WBC 5.3 k/uL (3.8-10.6); WBC (Perox) 5.68
[2016-12-21 17:28] LABS: Anion Gap 10 mmol/L; Blood Urea Nitrogen 28 mg/dL (7-17); Carbon Dioxide 25 mmol/L (22-30); Chloride 105 mmol/L (98-107); Glucose 89 mg/dL (74-99); Non-African American GFR(MDRD) >60 (>60 ml/min/1.73 sqM); Potassium 4.2 mmol/L (3.5-5.1); Sodium 140 mmol/L (137-145)
[2016-12-21 17:34] LABS: Appearance,Urine Cloudy (Clear); Bacteria,Urine Occasional /hpf; Bilirubin,Urine Negative (Negative); Glucose,Urine (UA) Negative (Negative); Ketones,Urine Negative (Negative); Leukocyte Esterase,Urine Large (Negative); Mucus,Urine Rare /hpf; Nitrite,Urine Negative (Negative); PH, Urine 6.5 (5.0-8.0); Particle Count 11998; Protein,Urine Negative (Negative); RBC,Urine 6 /hpf (0-5); Specific Gravity,Urine 1.018 (1.001-1.035); Squamous Epithelial Cell,Urine <1 /hpf (0-4); UA Billing (MACRO vs. MICRO) MICRO; Urobilinogen,Urine <2.0 mg/dL (<2.0); WBC,Urine 16 /hpf (0-5)
[2016-12-21] MEDS ORDERED: CEPHALEXIN 500MG STARTER PACK 4 CAP BTL PO STA (17:52)
[2016-12-21 18:09] VITALS: BP 125/56; PULSE 78; TEMP 98.7
== END 2016-12-21 18:11 | disposition home or self-care (01) ==
LOC: EC 15:41
DX: N39.0 Urinary tract infection, site not specified (principal); D64.9 Anemia, unspecified; R53.83 Other fatigue; R60.0 Localized edema; K21.9 Gastro-esophageal reflux disease without esophagitis; J44.9 Chronic obstructive pulmonary disease, unspecified; I10 Essential (primary) hypertension; E07.9 Disorder of thyroid, unspecified; Z85.3 Personal history of malignant neoplasm of breast; F41.9 Anxiety disorder, unspecified; F32.9 Major depressive disorder, single episode, unspecified; F43.10 Post-traumatic stress disorder, unspecified; Z79.82 Long term (current) use of aspirin; Z79.51 Long term (current) use of inhaled steroids; Z79.899 Other long term (current) drug therapy; Z91.018 Allergy to other foods; Z88.5 Allergy status to narcotic agent; Z91.030 Bee allergy status; Z88.6 Allergy status to analgesic agent; Z88.8 Allergy status to other drugs, medicaments and biological substances; Z90.49 Acquired absence of other specified parts of digestive tract
CPT/HCPCS: 36415; 80048; 81001; 83880; 85025; 93970; 99285

== ENCOUNTER 2016-12-26 21:50 | Emergency (ER) | payer MEDICARE, OTHER ==
[2016-12-26 21:53] VITALS: BP 140/63; PULSE 82; RESP 16; TEMP 97.9
--- NOTE | 2016-12-26 22:05 | ED ---
Back Pain HPI - General Chief Complaint: Back Pain/Injury Stated Complaint: Back Pain Time Seen by Provider: 12/26/16 21:55 Source: patient, EMS Limitations: no limitations - History of Present Illness Initial Comments: 58-year-old female patient presents to emergency department today for complaints of lower back pain. Patient states the pain radiates down her left leg. Patient states that she chronically has his pain and takes Normal for pain control. Patient states however she didn't 5 loads of laundry and repeatedly went up and down the stairs which made the pain worse than usual. She states that she took a Normal last about an hour and a half ago and has done nothing for her. She states the pain is dull and achy in her back however sharp down her left leg. Worsens with movement. Patient denies any falls or injuries. She states that she does have some tingling to her left foot however this is normal for her. She is also reporting some swelling in her legs, has been previously evaluated for this, and she does have an appointment with her solar energy system installer helper in the morning to address the issue. Patient denies any recent fever, chills, shortness breath, chest pain, abdominal pain, nausea/vomiting/ diarrhea, back pain, numbness, tingling, hematuria, headache, visual changes, or any other complaints. - Related Data Home Medications Medication Instructions Recorded Confirmed Aspirin EC [Ecotrin Low Dose] 81 mg PO DAILY 04/09/16 12/21/16 HYDROcodone/APAP 10-325MG [[place] 1 tab PO Q6H PRN 04/09/16 12/21/16 10-325] Pantoprazole Sodium [Protonix] 40 mg PO BID 04/09/16 12/21/16 EPINEPHrine [Epipen 2-River] 0.3 mg IM ONCE PRN 11/16/16 12/21/16 Fluticasone Nasal [place] [Flonase 1 spray EA NOSTRIL BID 11/16/16 12/21/16 Nasal [place]] Levothyroxine Sodium 88 mcg PO DAILY 11/16/16 12/21/16 Loratadine [Claritin] 10 mg PO DAILY 11/16/16 12/21/16 Methenamine Hippurate [Hiprex] 1 gm PO BID 11/16/16 12/21/16 Montelukast [Singulair] 10 mg PO HS 11/16/16 12/21/16 Nitroglycerin Sl Tabs [Nitrostat] 0.4 mg SUBLINGUAL Q5M PRN 11/16/16 12/21/16 Fluticasone Propionate [Flovent 1 puff INHALATION RT-BID 11/24/16 12/21/16 Diskus] Hydrochlorothiazide [Hydrodiuril] 12.5 mg PO BID 12/13/16 12/21/16 Losartan [Cozaar] 25 mg PO DAILY 12/13/16 12/21/16 Metoprolol Tartrate [Lopressor] 25 mg PO BID 12/13/16 12/21/16 OLANZapine [ZyPREXA] 15 mg PO HS 12/13/16 12/21/16 Sucralfate [Carafate] 1 gm PO ACHS 12/13/16 12/21/16 Ondansetron [Zofran] 4 mg PO Q4H PRN 12/21/16 12/21/16 valACYclovir [Valtrex] 500 mg PO BID 12/21/16 12/21/16 Previous Rx's Medication Instructions Recorded Amitriptyline HCl [Elavil] 10 mg PO HS #30 tab 12/06/16 diphenhydrAMINE [Benadryl] 50 mg PO HS PRN #30 cap 12/06/16 Methocarbamol [Robaxin] 1,000 mg PO QID #20 tab 12/14/16 Cephalexin [Keflex] 500 mg PO Q12HR #14 cap 12/21/16 Allergies Allergy/AdvReac Type Severity Reaction Status Date / Time metoclopramide [From Reglan] Allergy Anaphylaxis Verified 12/26/16 22:13 metronidazole [From Flagyl] Allergy Anaphylaxis Verified 12/26/16 22:13 morphine Allergy Rash/Hives Verified 12/26/16 22:13 papaya Allergy Rash/Hives Verified 12/26/16 22:13 prednisone Allergy Anaphylaxis Verified 12/26/16 22:13 venom-honey bee Allergy Anaphylaxis Verified 12/26/16 22:13 [bee venom (honey bee)] ketorolac [From Toradol] AdvReac Severe Abdominal Verified 12/26/16 22:13 Pain baclofen AdvReac Twitching Verified 12/26/16 22:13 meperidine [From Demerol] AdvReac Rapid Verified 12/26/16 22:13 Heart Rate Phenothiazines AdvReac Altered Verified 12/26/16 22:13 Mental Status Review of Systems ROS Statement: Those systems with pertinent positive or pertinent negative responses have been documented in the HPI. ROS Other: All systems not noted in ROS Statement are negative. Past Medical History Past Medical History: Asthma, Cancer, COPD, GERD/Reflux, Hypertension, Pneumonia , Thyroid Disorder Additional Past Medical History / Comment(s): shingles, RT BREAST LUMPECTOMY/ CANCER, THYROID REMOVE, CATARACTS, BRONCHITIS, MONO TEENAGER, LITE CASE OF POLIO AGE 8, MELANOMA SKIN CANCER REMOVED, History of Any Multi-Drug Resistant Organisms: MRSA Date of last positivie culture/infection: 2009 MDRO Source:: LEFT ULNAR BONE Past Surgical History: Appendectomy, Back Surgery, Cholecystectomy, Orthopedic Surgery Additional Past Surgical History / Comment(s): EYE SX FOR LAZY EYE, SX ON TEAR DUCTS, BACK SURGERY MICRO DISC, LT WRIST BROKEN 9 GALLO HAD 13 Surgeries TO CORRECT, left shoulder and humorous shattered from a fall with 2 surgeries to correct, LAPROSCOPIES- BENIGN TUNOR SIZE OF GRAPFRUIT REMOVED AGE 11 OR 1, RT BREAST BX/LUMPECTOMY,LT PINK FINGER SX TO STRAIGHTEN.MELANOMA SKIN CANCER REMOVED. Past Anesthesia/Blood Transfusion Reactions: No Reported Reaction Additional Past Anesthesia/Blood Transfusion Reaction / Comment(s): CLAUSTERPHOBIA Past Psychological History: Anxiety, Depression, PTSD Smoking Status: Never smoker Past Alcohol Use History: Occasional Past Drug Use History: None Reported - Past Family History Mother Family Medical History: Asthma Additional Family Medical History / Comment(s): ETOH/SMOKER Father Family Medical History: Cancer, Liver Disease Additional Family Medical History / Comment(s): ESOPHOGEAL CANCER, ETOH General Exam Limitations: no limitations General appearance: alert, in no apparent distress Head exam: Present: atraumatic, normocephalic, normal inspection Eye exam: Present: normal appearance, PERRL, EOMI. Absent: scleral icterus, conjunctival injection, periorbital swelling ENT exam: Present: normal exam, normal oropharynx, mucous membranes moist Neck exam: Present: normal inspection, full ROM. Absent: tenderness, meningismus, lymphadenopathy Respiratory exam: Present: normal lung sounds bilaterally. Absent: respiratory distress, wheezes, rales, rhonchi, stridor Cardiovascular Exam: Present: regular rate, normal rhythm, normal heart sounds. Absent: systolic murmur, diastolic murmur, rubs, gallop, clicks GI/Abdominal exam: Present: soft, normal bowel sounds. Absent: distended, tenderness, guarding, rebound, rigid Extremities exam: Present: full ROM, normal capillary refill. Absent: normal inspection (Nonpitting mild edema bilateral ankle and foot.), tenderness, pedal edema, joint swelling, calf tenderness Back exam: Present: normal inspection Neurological exam: Present: alert, oriented X3, CN II-XII intact Psychiatric exam: Present: normal affect, normal mood Skin exam: Present: warm, dry, intact, normal color. Absent: rash Course Vital Signs 12/26/16 21:51 Temperature 97.9 F Pulse Rate 82 Respiratory 16 Rate Blood Pressure 140/63 O2 Sat by Pulse 98 Oximetry Medical Decision Making - Medical Decision Making 66-year-old female patient presented for evaluation of lower back pain. This pain is chronic for her. Patient does have a legal guardian who requests that we do not administer any narcotics or benzos. Patient does have Normal at home. Did discuss use of Toradol with patient, states she is not ALLERGIC and she agreed to accept an IM injection of this. She will be discharged home instructions to take her medications as directed, keep her appointment with her solar energy system installer helper in the morning, and to make an appointment with her primary care physician for recheck of the back pain. Patient instructed to return immediately for any new, worsening, or concerning symptoms. Patient verbalized understanding and agreed with this plan. Disposition Clinical Impression: Chronic back pain Disposition: HOME SELF-CARE Condition: Good Instructions: Chronic Back Pain (ED) Additional Instructions: Continue taking her home pain medication as prescribed. Keep appointment with physician tomorrow. Return immediately for any new, worsening, or concerning symptoms. Follow-up with primary care physician in one to 2 days for recheck. Referrals: Julito Pina MD [Primary Care Provider] - 1-2 days Time of Disposition: 22:05
[2016-12-26] MEDS ORDERED: KETOROLAC 60 MG/2 ML VIAL IM STA (22:14)
== END 2016-12-26 22:50 | disposition home or self-care (01) ==
LOC: EC 21:50
DX: M54.5 Low back pain (principal); G89.29 Other chronic pain; J44.9 Chronic obstructive pulmonary disease, unspecified; I10 Essential (primary) hypertension; E07.9 Disorder of thyroid, unspecified; K21.9 Gastro-esophageal reflux disease without esophagitis; F32.9 Major depressive disorder, single episode, unspecified; Z88.1 Allergy status to other antibiotic agents; Z88.5 Allergy status to narcotic agent; Z88.8 Allergy status to other drugs, medicaments and biological substances; Z85.820 Personal history of malignant melanoma of skin; Z91.030 Bee allergy status; Z91.018 Allergy to other foods; Z79.82 Long term (current) use of aspirin; Z79.51 Long term (current) use of inhaled steroids; Z79.899 Other long term (current) drug therapy
CPT/HCPCS: 99283; 96372; J1885

== ENCOUNTER 2017-01-18 10:44 | Emergency (ER) | payer MEDICARE, OTHER ==
[2017-01-18 10:49] VITALS: BP 153/75; PULSE 67; RESP 18; TEMP 97.9
[2017-01-18] MEDS ORDERED: LORazepam 1 MG TAB PO STA (10:59)
[2017-01-18] MEDS ORDERED: ACETAMINOPHEN TAB 500 MG TAB PO STA (10:59)
--- NOTE | 2017-01-18 11:03 | ED ---
General Adult HPI - General Chief complaint: Anxiety Stated complaint: Anxiety Time Seen by Provider: 01/18/17 10:45 Source: patient, EMS, RN notes reviewed Mode of arrival: EMS Limitations: no limitations - History of Present Illness Initial comments: This is a 66-year-old female who presents emergency department stating that she has had a lot of problems with her personal life and she is extremely anxious today would like some Ativan. Patient stated to the nurse that she was having chest pain she told me that it was an episode of some chest tightness that she gets when she has anxiety but it only lasted a few seconds. Patient states she wants no blood drawn she wants no workup done she just would like something for her anxiety. Patient denies any chest pain currently she denies any shortness of breath or difficulty breathing. Patient denies any numbness or weakness. Patient states she does have a mild headache which is typical of her to get headaches when she is stressed. Patient denies any abdominal pain patient denies any nausea vomiting diarrhea. Patient denies any recent fever chills or cough. Patient denies any recent injury or trauma. - Related Data Home Medications Medication Instructions Recorded Confirmed Aspirin EC [Ecotrin Low Dose] 81 mg PO DAILY 04/09/16 12/26/16 HYDROcodone/APAP 10-325MG [[place] 1 tab PO Q6H PRN 04/09/16 12/26/16 10-325] Pantoprazole Sodium [Protonix] 40 mg PO BID 04/09/16 12/26/16 EPINEPHrine [Epipen 2-River] 0.3 mg IM ONCE PRN 11/16/16 12/26/16 Fluticasone Nasal [place] [Flonase 1 spray EA NOSTRIL BID 11/16/16 12/26/16 Nasal [place]] Levothyroxine Sodium 88 mcg PO DAILY 11/16/16 12/26/16 Loratadine [Claritin] 10 mg PO DAILY 11/16/16 12/26/16 Methenamine Hippurate [Hiprex] 1 gm PO BID 11/16/16 12/26/16 Montelukast [Singulair] 10 mg PO HS 11/16/16 12/26/16 Nitroglycerin Sl Tabs [Nitrostat] 0.4 mg SUBLINGUAL Q5M PRN 11/16/16 12/26/16 Fluticasone Propionate [Flovent 1 puff INHALATION RT-BID 11/24/16 12/26/16 Diskus] Hydrochlorothiazide [Hydrodiuril] 12.5 mg PO BID 12/13/16 12/26/16 Losartan [Cozaar] 25 mg PO DAILY 12/13/16 12/26/16 Metoprolol Tartrate [Lopressor] 25 mg PO BID 12/13/16 12/26/16 OLANZapine [ZyPREXA] 15 mg PO HS 12/13/16 12/26/16 Sucralfate [Carafate] 1 gm PO ACHS 12/13/16 12/26/16 Ondansetron [Zofran] 4 mg PO Q4H PRN 12/21/16 12/26/16 valACYclovir [Valtrex] 500 mg PO BID 12/21/16 12/26/16 Diurex Capsule 2 cap PO DAILY PRN 12/26/16 12/26/16 Previous Rx's Medication Instructions Recorded Amitriptyline HCl [Elavil] 10 mg PO HS #30 tab 12/06/16 diphenhydrAMINE [Benadryl] 50 mg PO HS PRN #30 cap 12/06/16 Methocarbamol [Robaxin] 1,000 mg PO QID #20 tab 12/14/16 Cephalexin [Keflex] 500 mg PO Q12HR #14 cap 12/21/16 Allergies Allergy/AdvReac Type Severity Reaction Status Date / Time metoclopramide [From Reglan] Allergy Anaphylaxis Verified 01/18/17 10:49 metronidazole [From Flagyl] Allergy Anaphylaxis Verified 01/18/17 10:49 morphine Allergy Rash/Hives Verified 01/18/17 10:49 papaya Allergy Rash/Hives Verified 01/18/17 10:49 prednisone Allergy Anaphylaxis Verified 01/18/17 10:49 venom-honey bee Allergy Anaphylaxis Verified 01/18/17 10:49 [bee venom (honey bee)] ketorolac [From Toradol] AdvReac Severe Abdominal Verified 01/18/17 10:49 Pain baclofen AdvReac Twitching Verified 01/18/17 10:49 meperidine [From Demerol] AdvReac Rapid Verified 01/18/17 10:49 Heart Rate Phenothiazines AdvReac Altered Verified 01/18/17 10:49 Mental Status Review of Systems ROS Statement: Those systems with pertinent positive or pertinent negative responses have been documented in the HPI. ROS Other: All systems not noted in ROS Statement are negative. Past Medical History Past Medical History: Asthma, Cancer, COPD, GERD/Reflux, Hypertension, Pneumonia , Thyroid Disorder Additional Past Medical History / Comment(s): shingles, RT BREAST LUMPECTOMY/ CANCER, THYROID REMOVE, CATARACTS, BRONCHITIS, MONO TEENAGER, LITE CASE OF POLIO AGE 8, MELANOMA SKIN CANCER REMOVED, History of Any Multi-Drug Resistant Organisms: MRSA Date of last positivie culture/infection: 2009 MDRO Source:: LEFT ULNAR BONE Past Surgical History: Appendectomy, Back Surgery, Cholecystectomy, Orthopedic Surgery Additional Past Surgical History / Comment(s): EYE SX FOR LAZY EYE, SX ON TEAR DUCTS, BACK SURGERY MICRO DISC, LT WRIST BROKEN 7 GALLO HAD 13 Surgeries TO CORRECT, left shoulder and humorous shattered from a fall with 2 surgeries to correct, LAPROSCOPIES- BENIGN TUNOR SIZE OF GRAPFRUIT REMOVED AGE 11 OR 1, RT BREAST BX/LUMPECTOMY,LT PINK FINGER SX TO STRAIGHTEN.MELANOMA SKIN CANCER REMOVED. Past Anesthesia/Blood Transfusion Reactions: No Reported Reaction Additional Past Anesthesia/Blood Transfusion Reaction / Comment(s): CLAUSTERPHOBIA Past Psychological History: Anxiety, Depression, PTSD Smoking Status: Never smoker Past Alcohol Use History: Occasional Past Drug Use History: None Reported - Past Family History Mother Family Medical History: Asthma Additional Family Medical History / Comment(s): ETOH/SMOKER Father Family Medical History: Cancer, Liver Disease Additional Family Medical History / Comment(s): ESOPHOGEAL CANCER, ETOH General Exam - General Exam Comments Initial Comments: GENERAL: Patient is well-developed and well-nourished. Patient is nontoxic and well- hydrated and is in no acute distress. ENT: Neck is soft and supple. No significant lymphadenopathy is noted. Oropharynx is clear. Moist mucous membranes. Neck has full range of motion without eliciting any pain. EYES: The sclera were anicteric and conjunctiva were pink and moist. Extraocular movements were intact and pupils were equal round and reactive to light. Eyelids were unremarkable. PULMONARY: Unlabored respirations. Good breath sounds bilaterally. No audible rales rhonchi or wheezing was noted. CARDIOVASCULAR: Patient is a regular rate and rhythm. ABDOMEN: Soft and nontender with normal bowel sounds. No palpable organomegaly was noted. There is no palpable pulsatile mass. SKIN: Skin is clear with no lesions or rashes and otherwise unremarkable. NEUROLOGIC: Patient is alert and oriented x3. Cranial nerves II through XII are grossly intact. Motor and sensory are also intact. Normal speech, volume and content. Symmetrical smile. MUSCULOSKELETAL: Normal extremities with adequate strength and full range of motion. No lower extremity swelling or edema. No calf tenderness. LYMPHATICS: No significant lymphadenopathy is noted PSYCHIATRIC: Patient is anxious and upset with her landlord Limitations: no limitations Course Vital Signs 01/18/17 10:46 Temperature 97.9 F Pulse Rate 67 Respiratory 18 Rate Blood Pressure 153/75 O2 Sat by Pulse 99 Oximetry Medical Decision Making - Medical Decision Making EKG shows sinus rhythm at 62 bpm ND interval is 212 QRS is 96 QT interval 410 QTC is 416. Patient's EKG shows no ST segment elevation or depression or T wave abnormalities are noted. EKG shows no changes from previous EKG Disposition Clinical Impression: Acute anxiety Disposition: HOME SELF-CARE Condition: Good Instructions: Generalized Anxiety Disorder (ED) Referrals: Julito Pina MD [Primary Care Provider] - 1-2 days Time of Disposition: 11:03
== END 2017-01-18 14:42 | disposition home or self-care (01) ==
LOC: EC 10:44
DX: F41.9 Anxiety disorder, unspecified (principal); R07.89 Other chest pain; R51 Headache; J44.9 Chronic obstructive pulmonary disease, unspecified; K21.9 Gastro-esophageal reflux disease without esophagitis; E07.9 Disorder of thyroid, unspecified; Z85.3 Personal history of malignant neoplasm of breast; F32.9 Major depressive disorder, single episode, unspecified; Z79.51 Long term (current) use of inhaled steroids; Z79.82 Long term (current) use of aspirin; Z79.899 Other long term (current) drug therapy; Z91.018 Allergy to other foods; Z91.030 Bee allergy status; Z88.1 Allergy status to other antibiotic agents; Z88.5 Allergy status to narcotic agent; Z88.6 Allergy status to analgesic agent; Z88.8 Allergy status to other drugs, medicaments and biological substances
CPT/HCPCS: 93005; 99284

== ENCOUNTER 2017-08-01 13:58 | Emergency (ER) | payer MEDICARE, OTHER ==
[2017-08-01 14:21] VITALS: BP 127/60; PULSE 56; RESP 18; TEMP 97.9
--- NOTE | 2017-08-01 14:39 | XR ---
EXAMINATION TYPE: XR forearm LT DATE OF EXAM: 08/01/2017 CLINICAL HISTORY: History of fracture with recent surgery. TECHNIQUE: Two views of the left forearm are obtained. COMPARISON: Left wrist x-ray December 05, 2016.. FINDINGS: There is redemonstration of old healed fracture deformity distal ulnar diaphysis. There is redemonstration of volar fixating plate through healed fracture of distal radius. There is radiocarp al joint space loss redemonstrated. [place] osseous structures are demineralized. Visualized elbow [place] nt is within normal limits. The overlying soft tissue appears within normal limits. IMPRESSION: There is no acute fracture or dislocation seen in the left radius or ulna.
[2017-08-01] MEDS ORDERED: diphenhydrAMINE 50 MG/ML 1 ML VIAL IVP STA (14:47)
[2017-08-01] MEDS ORDERED: KETOROLAC 30 MG/ML 1 ML VIAL IVP STA (14:47)
[2017-08-01] MEDS ORDERED: ONDANSETRON 4 MG/2 ML VIAL IVP STA (14:47)
[2017-08-01] MEDS ORDERED: SODIUM CHLORIDE 0.9% 1,000 ML IV STA (14:47)
--- NOTE | 2017-08-01 14:55 | ED ---
General Adult HPI - General Chief complaint: Extremity Injury, Upper Stated complaint: wrist pain/headache 5 days Time Seen by Provider: 08/01/17 14:32 Source: family, RN notes reviewed Mode of arrival: ambulatory Limitations: no limitations - History of Present Illness Initial comments: 67-year-old female presents to the emergency department with 2 complaints. First the patient complains of left forearm pain. She has history of surgery that arm. She denies any falls traumas or injuries but states it has been throbbing lately. She states that the pain is moderate worse to touch in the middle of the forearm. Patient states that her second complaint is her typical headache flaring up that originates from the distant her neck. She states that it wraps up around her head. She's had it for about 5 or 6 days now. She is wondering if she could have an infusion. She states that she has not had any other symptoms at this time. She denies any nausea or vomiting. Patient states exactly like her normal headache. Patient denies any recent fever, chills , shortness of breath, chest pain, back pain, abdominal pain, nausea vomiting, numbness or tingling, dysuria or hematuria, constipation or diarrhea, visual changes, or any other current symptoms. - Related Data Home Medications Medication Instructions Recorded Confirmed Aspirin EC [Ecotrin Low Dose] 81 mg PO DAILY 04/09/16 01/18/17 HYDROcodone/APAP 10-325MG [[place] 1 tab PO Q6H PRN 04/09/16 01/18/17 10-325] Pantoprazole Sodium [Protonix] 40 mg PO BID 04/09/16 01/18/17 EPINEPHrine [Epipen 2-River] 0.3 mg IM ONCE PRN 11/16/16 01/18/17 Fluticasone Nasal [place] [Flonase 1 spray EA NOSTRIL BID 11/16/16 01/18/17 Nasal [place]] Levothyroxine Sodium 88 mcg PO DAILY 11/16/16 01/18/17 Loratadine [Claritin] 10 mg PO DAILY 11/16/16 01/18/17 Methenamine Hippurate [Hiprex] 1 gm PO BID 11/16/16 01/18/17 Montelukast [Singulair] 10 mg PO HS 11/16/16 01/18/17 Nitroglycerin Sl Tabs [Nitrostat] 0.4 mg SUBLINGUAL Q5M PRN 11/16/16 01/18/17 Fluticasone Propionate [Flovent 1 puff INHALATION RT-BID 11/24/16 01/18/17 Diskus] Hydrochlorothiazide [Hydrodiuril] 12.5 mg PO BID 12/13/16 01/18/17 Losartan [Cozaar] 25 mg PO DAILY 12/13/16 01/18/17 Metoprolol Tartrate [Lopressor] 25 mg PO BID 12/13/16 01/18/17 Sucralfate [Carafate] 1 gm PO ACHS 12/13/16 01/18/17 Ondansetron [Zofran] 4 mg PO Q4H PRN 12/21/16 01/18/17 valACYclovir [Valtrex] 500 mg PO BID 12/21/16 01/18/17 Diurex Capsule 2 cap PO DAILY PRN 12/26/16 01/18/17 DULoxetine HCL [Cymbalta] 60 mg PO DAILY 01/18/17 01/18/17 buPROPion [Wellbutrin] 200 mg PO BID@0800,1500 01/18/17 01/18/17 Previous Rx's Medication Instructions Recorded diphenhydrAMINE [Benadryl] 50 mg PO HS PRN #30 cap 12/06/16 Methocarbamol [Robaxin] 1,000 mg PO QID #20 tab 12/14/16 Allergies Allergy/AdvReac Type Severity Reaction Status Date / Time metoclopramide [From Reglan] Allergy Anaphylaxis Verified 08/01/17 14:21 metronidazole [From Flagyl] Allergy Anaphylaxis Verified 08/01/17 14:21 morphine Allergy Rash/Hives Verified 08/01/17 14:21 papaya Allergy Rash/Hives Verified 08/01/17 14:21 prednisone Allergy Anaphylaxis Verified 08/01/17 14:21 venom-honey bee Allergy Anaphylaxis Verified 08/01/17 14:21 [bee venom (honey bee)] ketorolac [From Toradol] AdvReac Severe Abdominal Verified 08/01/17 14:21 Pain baclofen AdvReac Twitching Verified 08/01/17 14:21 meperidine [From Demerol] AdvReac Rapid Verified 08/01/17 14:21 Heart Rate Phenothiazines AdvReac Altered Verified 08/01/17 14:21 Mental Status Review of Systems ROS Statement: Those systems with pertinent positive or pertinent negative responses have been documented in the HPI. ROS Other: All systems not noted in ROS Statement are negative. Past Medical History Past Medical History: Asthma, Cancer, COPD, GERD/Reflux, Hypertension, Pneumonia , Thyroid Disorder Additional Past Medical History / Comment(s): shingles, RT BREAST LUMPECTOMY/ CANCER, THYROID REMOVE, CATARACTS, BRONCHITIS, MONO TEENAGER, LITE CASE OF POLIO AGE 8, MELANOMA SKIN CANCER REMOVED, History of Any Multi-Drug Resistant Organisms: MRSA Date of last positivie culture/infection: 2009 MDRO Source:: LEFT ULNAR BONE Past Surgical History: Appendectomy, Back Surgery, Cholecystectomy, Orthopedic Surgery Additional Past Surgical History / Comment(s): EYE SX FOR LAZY EYE, SX ON TEAR DUCTS, BACK SURGERY MICRO DISC, LT WRIST BROKEN 7 GALLO HAD 13 Surgeries TO CORRECT, left shoulder and humorous shattered from a fall with 2 surgeries to correct, LAPROSCOPIES- BENIGN TUNOR SIZE OF GRAPFRUIT REMOVED AGE 11 OR 1, RT BREAST BX/LUMPECTOMY,LT PINK FINGER SX TO STRAIGHTEN.MELANOMA SKIN CANCER REMOVED. Past Anesthesia/Blood Transfusion Reactions: No Reported Reaction Additional Past Anesthesia/Blood Transfusion Reaction / Comment(s): CLAUSTERPHOBIA Past Psychological History: Anxiety, Depression, PTSD Smoking Status: Never smoker Past Alcohol Use History: Occasional Past Drug Use History: None Reported - Past Family History Mother Family Medical History: Asthma Additional Family Medical History / Comment(s): ETOH/SMOKER Father Family Medical History: Cancer, Liver Disease Additional Family Medical History / Comment(s): ESOPHOGEAL CANCER, ETOH General Exam Limitations: no limitations General appearance: alert, in no apparent distress Eye exam: Present: normal appearance, PERRL, EOMI. Absent: scleral icterus, conjunctival injection, periorbital swelling ENT exam: Present: normal exam, mucous membranes moist Neck exam: Present: normal inspection. Absent: tenderness, meningismus, lymphadenopathy Respiratory exam: Present: normal lung sounds bilaterally. Absent: respiratory distress, wheezes, rales, rhonchi, stridor Cardiovascular Exam: Present: regular rate, normal rhythm, normal heart sounds. Absent: systolic murmur, diastolic murmur, rubs, gallop, clicks Extremities exam: Present: normal inspection, full ROM, tenderness (Minimal tenderness to the mid shaft of the left forearm), normal capillary refill. Absent: pedal edema, joint swelling, calf tenderness Back exam: Present: normal inspection Neurological exam: Present: alert, oriented X3, CN II-XII intact, reflexes normal. Absent: motor sensory deficit Psychiatric exam: Present: normal affect, normal mood Skin exam: Present: warm, dry, intact, normal color. Absent: rash Course Vital Signs 08/01/17 14:18 Temperature 97.9 F Pulse Rate 56 L Respiratory 18 Rate Blood Pressure 127/60 O2 Sat by Pulse 98 Oximetry - Reevaluation(s) Reevaluation #1: 08/01/17 15:48 patient states her headache has improved. Medical Decision Making - Medical Decision Making 67-year-old female presents to the emergency department with a chief complaint of left forearm pain as well as headache. This time x-ray of her left forearm does not show any acute process. We discussed that she is follow-up with orthopedic doctor. His underwent fusion of a headache and is improved. She states it is much like her normal headache and she is feeling much better. At this time patient is informed to follow-up with her family care doctor as well. We did discuss return parameters all questions. Patient stated that she understood and she is agreement this plan. All questions have been answered. At this time the patient will be discharged. - Radiology Data Radiology results: report reviewed, image reviewed Disposition Clinical Impression: Left forearm pain, Headache Disposition: HOME SELF-CARE Condition: Stable Instructions: Acute Headache (ED), Contusion in Adults (ED) Additional Instructions: Please use medication as discussed. Please follow up with family doctor if symptoms have not improved over the next two days. Please return to the emergency room if your symptoms increase or worsen or for any other concerns. Referrals: Julito Pina MD [Primary Care Provider] - 1-2 days Time of Disposition: 15:48
== END 2017-08-01 16:20 | disposition home or self-care (01) ==
LOC: EEVIPCON 13:58 → EC 13:58
DX: M79.632 Pain in left forearm (principal); R51 Headache; J44.9 Chronic obstructive pulmonary disease, unspecified; K21.9 Gastro-esophageal reflux disease without esophagitis; I10 Essential (primary) hypertension; E07.9 Disorder of thyroid, unspecified; F41.9 Anxiety disorder, unspecified; F43.10 Post-traumatic stress disorder, unspecified; F32.9 Major depressive disorder, single episode, unspecified; Z85.828 Personal history of other malignant neoplasm of skin; Z86.14 Personal history of Methicillin resistant Staphylococcus aureus infection; Z79.51 Long term (current) use of inhaled steroids; Z79.82 Long term (current) use of aspirin; Z79.899 Other long term (current) drug therapy; Z88.1 Allergy status to other antibiotic agents; Z88.5 Allergy status to narcotic agent; Z88.6 Allergy status to analgesic agent; Z88.8 Allergy status to other drugs, medicaments and biological substances; Z91.018 Allergy to other foods; Z91.030 Bee allergy status
CPT/HCPCS: 73090; 99283; 96374; 96375 ×2; 96361; J1200; J2405; J1885

== ENCOUNTER 2017-09-16 13:11 | Inpatient (IN) | payer MEDICARE, MEDICAID ==
[2017-09-16] MEDS ORDERED: KETOROLAC 60 MG/2 ML VIAL IM STA (14:02)
--- NOTE | 2017-09-16 14:09 | ED ---
Psych HPI - General Chief Complaint: Psychiatric Symptoms Stated Complaint: Mental Health Time Seen by Provider: 09/16/17 13:53 Source: patient Mode of arrival: ambulatory - History of Present Illness Initial Comments: This 67-year-old white female presents escorted by police for psychiatric evaluation. She apparently was ordered by the student advisor to take an antipsychotic medication. She states that she does not know this medication and she has multiple ALLERGIES and she would like to be tested for psychosis first. She denies any current psychiatric complaints. She does have medical complaints of chronic pain to her neck and back and is requesting a Toradol shot. She states that she is ALLERGIC to other nonsteroidal anti-inflammatory medications but can have Toradol IM without any problems. No other complaints or modifying factors. - Related Data Home Medications Medication Instructions Recorded Confirmed Aspirin EC [Ecotrin Low Dose] 81 mg PO DAILY 04/09/16 09/16/17 HYDROcodone/APAP 10-325MG [[place] 1 tab PO Q6H PRN 04/09/16 09/16/17 10-325] Pantoprazole Sodium [Protonix] 40 mg PO BID 04/09/16 09/16/17 EPINEPHrine [Epipen 2-River] 0.3 mg IM ONCE PRN 11/16/16 09/16/17 Fluticasone Nasal [place] [Flonase 1 spray EA NOSTRIL BID 11/16/16 09/16/17 Nasal [place]] Loratadine [Claritin] 10 mg PO DAILY 11/16/16 09/16/17 Methenamine Hippurate [Hiprex] 1 gm PO BID 11/16/16 09/16/17 Montelukast [Singulair] 10 mg PO HS 11/16/16 09/16/17 Nitroglycerin Sl Tabs [Nitrostat] 0.4 mg SUBLINGUAL Q5M PRN 11/16/16 09/16/17 Fluticasone Propionate [Flovent 1 puff INHALATION RT-BID 11/24/16 09/16/17 Diskus] Hydrochlorothiazide [Hydrodiuril] 12.5 mg PO DAILY 12/13/16 09/16/17 Sucralfate [Carafate] 1 gm PO ACHS 12/13/16 09/16/17 Ondansetron [Zofran] 4 mg PO Q4H PRN 12/21/16 09/16/17 valACYclovir [Valtrex] 500 mg PO DAILY 12/21/16 09/16/17 Diazepam [Valium] 5 mg PO BID 09/16/17 09/16/17 Losartan Potassium 50 mg PO DAILY 09/16/17 09/16/17 Metoprolol/Hydrochlorothiazide 1 tab PO BID 09/16/17 09/16/17 [Lopressor Hct 50-25 mg Tab] Olopatadine HCl [Pataday] 1 drop BOTH EYES DAILY PRN 09/16/17 09/16/17 Previous Rx's Medication Instructions Recorded ARIPiprazole IM [Abilify Maintena] 300 mg IM ONCE #1 vial 09/22/17 ARIPiprazole [Abilify] 10 mg PO DAILY #14 tab 09/22/17 DULoxetine HCL [Cymbalta] 30 mg PO BID #60 capsule. 09/22/17 Levothyroxine Sodium [Synthroid] 50 mcg PO DAILY@0630 #30 tab 09/22/17 buPROPion [Wellbutrin] 100 mg PO BID@0900,1300 #60 tab 09/22/17 diphenhydrAMINE [Benadryl] 50 mg PO HS cap 09/22/17 Allergies Allergy/AdvReac Type Severity Reaction Status Date / Time carisoprodol [From Soma] Allergy Unknown Verified 09/16/17 13:40 chlorpromazine Allergy Unknown Verified 09/16/17 13:40 [From Thorazine] ciprofloxacin [From Cipro] Allergy Unknown Verified 09/16/17 13:40 clonazepam [From Klonopin] Allergy Unknown Verified 09/16/17 13:40 cyclobenzaprine Allergy Unknown Verified 09/16/17 13:40 [From Flexeril] metoclopramide [From Reglan] Allergy Anaphylaxis Verified 09/16/17 13:40 metronidazole [From Flagyl] Allergy Anaphylaxis Verified 09/16/17 13:40 morphine Allergy Rash/Hives Verified 09/16/17 13:40 naproxen Allergy Unknown Verified 09/16/17 13:40 papaya Allergy Rash/Hives Verified 09/16/17 13:40 prednisone Allergy Anaphylaxis Verified 09/16/17 13:40 prochlorperazine Allergy Anaphylaxis Verified 09/16/17 13:40 [From Compazine] venom-honey bee Allergy Anaphylaxis Verified 09/16/17 13:40 [bee venom (honey bee)] ketorolac [From Toradol] AdvReac Severe Abdominal Verified 09/16/17 13:40 Pain baclofen AdvReac Twitching Verified 09/16/17 13:40 ibuprofen [From Motrin] AdvReac Abdominal Verified 09/16/17 13:40 Pain meperidine [From Demerol] AdvReac Rapid Verified 09/16/17 13:40 Heart Rate Phenothiazines AdvReac Altered Verified 09/16/17 13:40 Mental Status Review of Systems ROS Statement: Those systems with pertinent positive or pertinent negative responses have been documented in the HPI. ROS Other: All systems not noted in ROS Statement are negative. Past Medical History Past Medical History: Asthma, Cancer, COPD, GERD/Reflux, Hypertension, Pneumonia , Thyroid Disorder Additional Past Medical History / Comment(s): shingles, RT BREAST LUMPECTOMY/ CANCER, THYROID REMOVE, CATARACTS, BRONCHITIS, MONO TEENAGER, LITE CASE OF POLIO AGE 8, MELANOMA SKIN CANCER REMOVED, History of Any Multi-Drug Resistant Organisms: MRSA Date of last positivie culture/infection: 2009 MDRO Source:: LEFT ULNAR BONE Past Surgical History: Appendectomy, Back Surgery, Cholecystectomy, Orthopedic Surgery Additional Past Surgical History / Comment(s): EYE SX FOR LAZY EYE, SX ON TEAR DUCTS, BACK SURGERY MICRO DISC, LT WRIST BROKEN 9 GALLO HAD 13 Surgeries TO CORRECT, left shoulder and humorous shattered from a fall with 2 surgeries to correct, LAPROSCOPIES- BENIGN TUNOR SIZE OF GRAPFRUIT REMOVED AGE 11 OR 1, RT BREAST BX/LUMPECTOMY,LT PINK FINGER SX TO STRAIGHTEN.MELANOMA SKIN CANCER REMOVED. Past Anesthesia/Blood Transfusion Reactions: No Reported Reaction Additional Past Anesthesia/Blood Transfusion Reaction / Comment(s): CLAUSTERPHOBIA Past Psychological History: Anxiety, Depression, PTSD Smoking Status: Never smoker Past Alcohol Use History: Occasional Past Drug Use History: None Reported - Past Family History Mother Family Medical History: Asthma Additional Family Medical History / Comment(s): ETOH/SMOKER Father Family Medical History: Cancer, Liver Disease Additional Family Medical History / Comment(s): ESOPHOGEAL CANCER, ETOH General Exam - General Exam Comments Initial Comments: GENERAL: The patient is well nourished and well hydrated. VITAL SIGNS: Heart rate, blood pressure, respiratory rate reviewed as recorded in nurse's notes. EYES: Pupils are round and reactive. Extraocular movements are intact. No conjunctival / lid redness or swelling. ENT: No external evidence of injury, swelling, or ecchymosis. Airway is patent. Throat is clear. NECK: Nontender. No swelling or evidence of injury. No subcutaneous emphysema. Trachea is midline. No thyroid mass. HEART: Regular rate and rhythm. Good peripheral pulses. LUNGS/CHEST: Breath sounds clear and equal bilaterally. No rales, rhonchi, or wheezes. No ecchymosis, subcutaneous emphysema, or tenderness. ABDOMEN: Abdomen soft without tenderness. No palpable masses or organomegaly. No peritoneal signs. No abdominal wall swelling or ecchymosis. EXTREMITIES: No extremity tenderness. Normal muscle tone and function. No thoracolumbar tenderness. NEUROLOGIC: Sensation is grossly intact. Cranial nerve exam reveals face is symmetrical, tongue is midline, speech is clear. SKIN: No abrasions or ecchymosis is noted. No induration or masses noted. PSYCHIATRIC: Alert and oriented. Appropriate behavior and judgment. Limitations: no limitations Course Vital Signs 09/16/17 09/16/17 13:19 20:47 Temperature 98.1 F 97.4 F L Pulse Rate 65 58 L Respiratory 18 16 Rate Blood Pressure 117/65 120/59 O2 Sat by Pulse 100 97 Oximetry Medical Decision Making - Medical Decision Making The patient was seen and examined. All diagnostics are reviewed. She does receive a Toradol 60 mg IM injection. A psychiatric consult is placed. The urine drug screen is positive for benzodiazepines as well as opiates. The patient is in no distress on recheck. At time of dictation, we are still awaiting psychiatric disposition. - Lab Data Result diagrams: 09/17/17 08:36 09/17/17 08:36 Lab Results 09/16/17 Range/Units 14:45 Urine Opiates Screen Detected H (NotDetected) Ur Oxycodone Screen Not Detected (NotDetected) Urine Methadone Screen Not Detected (NotDetected) Ur Propoxyphene Screen Not Detected (NotDetected) Ur Barbiturates Screen Not Detected (NotDetected) U Tricyclic Antidepress Not Detected (NotDetected) Ur Phencyclidine Scrn Not Detected (NotDetected) Ur Amphetamines Screen Not Detected (NotDetected) U Methamphetamines Scrn Not Detected (NotDetected) U Benzodiazepines Scrn Detected H (NotDetected) Urine Cocaine Screen Not Detected (NotDetected) U Marijuana (THC) Screen Not Detected (NotDetected) Disposition Clinical Impression: History of psychosis Disposition: ADMITTED IP TO THIS HOSP Condition: Fair Is patient prescribed a controlled substance at d/c from ED?: No Time of Disposition: 00:37 Decision Date: 09/16/17 Decision Time: 20:00
[2017-09-16 15:09] LABS: Amphetamine Screen,Urine Not Detected (NotDetected); Barbiturate Screen,Urine Not Detected (NotDetected); Benzodiazepines Screen,Urine Detected (NotDetected); Cocaine Screen,Urine Not Detected (NotDetected); Methadone Screen, Urine Not Detected (NotDetected); Opiate Screen,Urine Detected (NotDetected); Oxycodone Screen, Urine Not Detected (NotDetected); Phencyclidine Screen,Urine Not Detected (NotDetected); Tricyclic Antidepressant,Urine Not Detected (NotDetected); Urn Cannabinoid Scrn Not Detected (NotDetected)
[2017-09-16] MEDS ORDERED: ACETAMINOPHEN TAB 500 MG TAB PO STA (18:05)
[2017-09-17] MEDS ORDERED: ACETAMINOPHEN TAB 325 MG TAB PO PRN (01:39)
[2017-09-17] MEDS ORDERED: MAG HYDROX/AL HYDROX/SIMETH 30 ML CUP PO PRN (01:39)
[2017-09-17] MEDS: HYDROcodone/APAP 5-325MG 1 EACH TAB PO PRN ×3 (05:12→21:00)
[2017-09-17] MEDS: ONDANSETRON 4 MG TAB PO PRN ×2 (05:13→17:47)
[2017-09-17] MEDS ORDERED: LEVOTHYROXINE 88 MCG TAB PO SCH (06:00)
[2017-09-17] MEDS: SUCRALFATE 1 GM TAB PO SCH ×4 (07:47→20:57)
[2017-09-17] MEDS: PANTOPRAZOLE 40 MG TABLET PO SCH ×2 (07:47→20:56)
[2017-09-17] MEDS: HYDROCHLOROTHIAZIDE 25 MG TAB PO SCH (08:43)
[2017-09-17] MEDS: LORATADINE 10 MG TAB PO SCH (08:43)
[2017-09-17] MEDS: DIAZEPAM 5 MG TAB PO SCH ×2 (08:43→21:01)
[2017-09-17] MEDS: valACYclovir 500 MG TAB PO SCH (08:44)
[2017-09-17] MEDS: ASPIRIN 81 MG PO SCH (08:44)
[2017-09-17] MEDS: FLUTICASONE 50MCG/SPRAY NASAL 16GM EA NOSTRIL SCH ×2 (08:44→20:54)
[2017-09-17] MEDS: METOPROLOL TARTRATE 50 MG TAB PO SCH ×2 (08:44→20:56)
[2017-09-17] MEDS: LOSARTAN 50 MG TAB PO SCH (08:44)
[2017-09-17] MEDS: KETOTIFEN 0.025% OPHTH DROPS 5 ML BTL BOTH EYES SCH ×2 (08:45→20:55)
[2017-09-17] MEDS: Methenamine Hippurate [Hiprex] 1 GM PO SCH ×2 (08:46→21:27)
[2017-09-17] MEDS ORDERED: HYDROCHLOROTHIAZIDE 12.5 MG CAP PO SCH (09:00)
[2017-09-17] MEDS ORDERED: buPROPion 100 MG TAB PO SCH (09:00)
[2017-09-17] MEDS ORDERED: DULoxetine HCL 60 MG CAPSULE.DR PO SCH (09:00)
[2017-09-17 09:02] LABS: Basophils % (A) 1 %; Eosinophils # (A) 0.2 k/uL (0-0.7); Eosinophils % (A) 3 %; HCT 39.5 % (34.0-46.0); HGB 12.9 gm/dL (11.4-16.0); Lymphocytes # (A) 1.4 k/uL (1.0-4.8); Lymphocytes % (A) 31 %; MCH 30.1 pg (25.0-35.0); MCHC 32.7 g/dL (31.0-37.0); Mean Platelet Volume 7.9; Monocytes # (A) 0.3 k/uL (0-1.0); Monocytes % (A) 6 %; Neutrophils # (A) 2.4 k/uL (1.3-7.7); Neutrophils % (A) 55 %; Platelet Count 258 k/uL (150-450); RBC 4.29 m/uL (3.80-5.40); RDW 13.1 % (11.5-15.5); WBC 4.4 k/uL (3.8-10.6)
[2017-09-17 09:16] LABS: Albumin 4.4 g/dL (3.5-5.0); Calcium 9.6 mg/dL (8.4-10.2); Potassium 4.2 mmol/L (3.5-5.1); Total Bilirubin 0.5 mg/dL (0.2-1.3); Total Protein 7.1 g/dL (6.3-8.2)
[2017-09-17] MEDS: ARIPiprazole 5 MG TAB PO SCH (17:48)
[2017-09-17 18:19] LABS: Hemoglobin A1C 5.6 % (4.0-6.0)
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
--- NOTE | 2017-09-17 20:34 | CONS ---
CONSULTATION DATE OF CONSULTATION: 09/17/2017 REASON FOR CONSULTATION: Medical management requested by Dr. Toledo. CONSULTATION: This is a 67-year-old patient who was admitted to the psychiatry unit after she was petitioned by a trial court judge. Patient not been taking her psychiatry medications. She had an order from a trial court judge. During the interview, the patient just goes from one topic to the other topic. The patient's chronic stable medical conditions include COPD, GERD, hypertension, hypothyroid and chronic pain in the back. The patient denies any hearing voices or seeing things, but is very erratic during history taking. She was last here in November of last year. REVIEW OF SYSTEMS: CONSTITUTIONAL: None. HEENT: None. RESPIRATORY: None. CARDIOVASCULAR: None. GASTROINTESTINAL: None. GENITOURINARY: None. MUSCULOSKELETAL: The patient has pain in the neck, thoracic spine, some lumbar spine. DERMATOLOGICAL: None. HEMATOLOGIC: None. LYMPHATIC: None. PSYCHIATRY: As above. NEUROLOGICAL: None. Patient is able to walk around. PAST MEDICAL HISTORY: Bipolar disorder, GERD, hypertension, and shingles, hypothyroidism, melanoma, chronic back and neck pain, cervical disease, anxiety, depression. PAST SURGICAL HISTORY: Appendectomy, back surgery, cholecystectomy, surgery for lazy eye, left wrist broken, right breast lumpectomy, left pinky finger surgery to straighten it, melanoma removed. PSYCHIATRIC HISTORY: Anxiety, depression, PTSD, bipolar. SOCIAL HISTORY: The patient lives alone. No smoking. Alcohol occasionally. Does use recreational drugs. FAMILY HISTORY: Asthma. HOME MEDICATIONS: 1. Valtrex 100 mg p.o. daily. 2. Benadryl 50 mg q.h.s. 3. Wellbutrin 200 mg b.i.d. 4. Carafate 1 g p.o. q.a.c., at bedtime. 5. Protonix 40 mg b.i.d. 6. Zofran 4 mg q.4 p.r.n. 7. Pataday 1 drop both eyes daily p.r.n. 8. Nitrostat 0.4 sublingual q.5 p.r.n. 9. Singulair 10 mg p.o. q.h.s. 10.Lopressor/hydrochlorothiazide 50/25, 1 tablet p.o. b.i.d. 11.Hiprex 1 g p.o. b.i.d. 12.Losartan 50 mg p.o. daily. 13.Claritin 10 mg p.o. daily. 14.Synthroid 88 mcg p.o. daily. 15.Hydrochlorothiazide 12.5 p.o. daily. 16.[place] 10, 1 tablet p.o. every 6 hours p.r.n. 17.Flovent 1 puff b.i.d. nasal spray. 18.EpiPen p.r.n. 19.Valium 5 mg b.i.d. 20.Cymbalta 60 mg b.i.d. 21.Aspirin 81 mg p.o. daily. ALLERGIES: List is long, includes SOMA, THORAZINE, CIPRO, KLONOPIN, FLEXERIL, REGLAN, FLAGYL, MORPHINE, NAPROXEN, PAPAYA, PREDNISONE, COMPAZINE, BEE VENOM, TORADOL, BACLOFEN, MOTRIN, DEMEROL, PHENOTHIAZINE. EXAMINATION: Temperature 98, pulse 60, respirations 16, blood pressure 123/56, pulse ox 97% on room air. GENERAL APPEARANCE: Lying in bed, comfortable, but anxious-appearing. EYES: Pupils equal. Conjunctivae normal. HEENT: External appearance of nose and ears normal. Oral cavity normal. NECK: JVD not raised. Mass not palpable. RESPIRATORY: Effort normal. LUNGS: Fair air entry. CARDIOVASCULAR: First and second sounds normal. No edema. ABDOMEN: Soft, nontender. Liver and spleen not palpable. LYMPHATIC: No lymph node palpable in neck or axillae. PSYCHIATRY: Alert and oriented x3. Mood and affect very anxious-appearing. NEUROLOGICAL: Pupils equal. Cranial nerves grossly intact. Power and sensation grossly intact. INVESTIGATIONS: White count 4.4, hemoglobin 12.9. Potassium 4.2, BUN 45, creatinine 1.2. The patient's creatinine was 1.29 in November of last year last year. TSH 0.563. Urine drug screen positive for opiates and benzodiazepines. ASSESSMENT: 1. Gastroesophageal reflux disease. 2. Chronic cervical and thoracic spine probably osteoarthritis. 3. Essential hypertension. 4. Hypothyroidism. 5. Chronic kidney disease stage 3, probably from hypertensive nephrosclerosis. 6. Psychiatry disorder, psychosis, type unknown. PLAN: Home medications to be resumed. Care was discussed with the patient. Patient encouraged to ambulate and keep herself active. Patient should follow up with a family doctor upon discharge. The patient's Synthroid dose will be cut back, as the patient's TSH 2 subsequent were noted to be much lower and will drop down the Synthroid from 88 to 50 mcg after it for at least 24 hours, as the half-life is out, and that could hopefully control some of the symptoms. Thank you, Dr. Toledo. CANDE / KAZ: [id number] /
[2017-09-17] MEDS: DULoxetine HCL 30 MG CAPSULE.DR PO SCH (20:56)
[2017-09-17] MEDS: MONTELUKAST 10 MG TAB PO SCH (20:57)
[2017-09-17] MEDS: diphenhydrAMINE 50 MG CAP PO SCH (20:57)
[2017-09-17] MEDS: buPROPion 100 MG TAB PO SCH (20:57)
[2017-09-17] MEDS: NITROGLYCERIN SL TABS 0.4 MG TAB SUBLINGUAL PRN (21:49)
[2017-09-18] MEDS: ONDANSETRON 4 MG TAB PO PRN ×3 (02:05→22:37)
[2017-09-18] MEDS: LEVOTHYROXINE 50 MCG TAB PO SCH (05:57)
[2017-09-18] MEDS: HYDROcodone/APAP 5-325MG 1 EACH TAB PO PRN ×3 (06:07→23:39)
[2017-09-18] MEDS: ASPIRIN 81 MG PO SCH (08:11)
[2017-09-18] MEDS: PANTOPRAZOLE 40 MG TABLET PO SCH ×2 (08:11→22:32)
[2017-09-18] MEDS: HYDROCHLOROTHIAZIDE 25 MG TAB PO SCH (08:11)
[2017-09-18] MEDS: SUCRALFATE 1 GM TAB PO SCH ×4 (08:11→22:32)
[2017-09-18] MEDS: buPROPion 100 MG TAB PO SCH ×3 (08:11→22:29)
[2017-09-18] MEDS: LORATADINE 10 MG TAB PO SCH (08:11)
[2017-09-18] MEDS: ARIPiprazole 5 MG TAB PO SCH (08:11)
[2017-09-18] MEDS: valACYclovir 500 MG TAB PO SCH (08:11)
[2017-09-18] MEDS: DIAZEPAM 5 MG TAB PO SCH ×2 (08:11→22:30)
[2017-09-18] MEDS: LOSARTAN 50 MG TAB PO SCH (08:12)
[2017-09-18] MEDS: DULoxetine HCL 30 MG CAPSULE.DR PO SCH ×3 (08:16→22:31)
[2017-09-18] MEDS: FLUTICASONE 50MCG/SPRAY NASAL 16GM EA NOSTRIL SCH ×2 (08:16→22:31)
[2017-09-18] MEDS: Methenamine Hippurate [Hiprex] 1 GM PO SCH ×2 (08:48→22:32)
[2017-09-18] MEDS: KETOTIFEN 0.025% OPHTH DROPS 5 ML BTL BOTH EYES SCH ×2 (08:49→22:31)
[2017-09-18] MEDS: METOPROLOL TARTRATE 50 MG TAB PO SCH ×2 (08:56→22:32)
--- NOTE | 2017-09-18 16:15 | P.PN ---
Progress Note - Text Progress Note Date: 09/18/17 Interval history: [facility] is [facility]. She describes her mood is doing well. She seems to be tolerating the Abilify fine. She has questions regarding his Synthroid dosing. She does describe still some ongoing issue with headache. Mental status exam: She is alert and cooperative with the interview. Her speech is fluent, not rapid or pressured. She does laugh loudly at times during the session. She seems to describe her mood is doing well. She does not voice any thoughts of harm to self or others. She denies any hallucinations. She does talk today again about somebody coming into her place and taking things. Plan: Patient will be maintained on current psychotropic medication regimen. Continue to monitor for any medication side effects monitor her ongoing response. Less medical to follow-up regarding questions of Synthroid dosing.
[2017-09-18] MEDS: diphenhydrAMINE 50 MG CAP PO SCH (22:30)
[2017-09-18] MEDS: MONTELUKAST 10 MG TAB PO SCH (22:32)
[2017-09-19] MEDS: LEVOTHYROXINE 50 MCG TAB PO SCH (06:15)
[2017-09-19] MEDS: HYDROcodone/APAP 5-325MG 1 EACH TAB PO PRN ×3 (06:40→21:09)
[2017-09-19] MEDS: SUCRALFATE 1 GM TAB PO SCH ×4 (08:09→21:11)
[2017-09-19] MEDS: FLUTICASONE 50MCG/SPRAY NASAL 16GM EA NOSTRIL SCH ×2 (08:47→21:14)
[2017-09-19] MEDS: KETOTIFEN 0.025% OPHTH DROPS 5 ML BTL BOTH EYES SCH ×2 (08:47→21:16)
[2017-09-19] MEDS: ARIPiprazole 5 MG TAB PO SCH (08:48)
[2017-09-19] MEDS: PANTOPRAZOLE 40 MG TABLET PO SCH ×2 (08:48→21:11)
[2017-09-19] MEDS: DULoxetine HCL 30 MG CAPSULE.DR PO SCH ×2 (08:48→21:11)
[2017-09-19] MEDS: LOSARTAN 50 MG TAB PO SCH (08:48)
[2017-09-19] MEDS: buPROPion 100 MG TAB PO SCH ×2 (08:48→21:10)
[2017-09-19] MEDS: DIAZEPAM 5 MG TAB PO SCH ×2 (08:48→21:12)
[2017-09-19] MEDS: METOPROLOL TARTRATE 50 MG TAB PO SCH ×2 (08:48→21:11)
[2017-09-19] MEDS: ASPIRIN 81 MG PO SCH (08:48)
[2017-09-19] MEDS: valACYclovir 500 MG TAB PO SCH (08:48)
[2017-09-19] MEDS: LORATADINE 10 MG TAB PO SCH (08:48)
[2017-09-19] MEDS: HYDROCHLOROTHIAZIDE 25 MG TAB PO SCH (08:49)
[2017-09-19] MEDS: Methenamine Hippurate [Hiprex] 1 GM PO SCH ×2 (08:52→21:13)
--- NOTE | 2017-09-19 11:29 | P.PN ---
Progress Note - Text Interval history: The patient is found in the hallway she follows me to an interview room. The patient was admitted over the weekend from the court. She is on an existing treatment order and there was a hearing held regarding medication noncompliance. Apparently [facility] wanted to reinitiate an antipsychotic medication for her and she was not willing. Subsequently she was sent to the hospital. She has been started on Abilify 5 mg daily. We discussed titrating the dose and she is agreeable. We discussed that if the medication provides benefit we could utilize the Abilify maintena form. She was hoping she was going to be discharged today. She states that she has been trying to attend groups. Recent documentation from [facility] is reviewed. She carries a diagnosis of bipolar 1 disorder most recent manic with psychotic features. Mental status exam: The patient is a female appearing her stated age. She is alert she is pleasant and cooperative. She is dressed in her own clothing hygiene is adequate. Eye contact is appropriate. Speech is spontaneous and fluent. She is verbose at times. She demonstrates some exaggerated laughter. She is redirectable. She is reporting no suicidal or homicidal thoughts. She is reporting no auditory or visual hallucinations or any specific delusions however there may be some paranoid thoughts present she is not disclosing. She demonstrates no verbal or physical aggressiveness. Thought process is circumstantial she can be briefly tangential. She is oriented to person place and date. Plan: The patient will continue on Abilify we will titrate to 10 mg daily. We will monitor her for safety and encourage her participation in the milieu. Our plan will be to stabilize her with the Abilify and then transition to the Abilify maintena. Vital signs reviewed.
[2017-09-19] MEDS: MONTELUKAST 10 MG TAB PO SCH (21:11)
[2017-09-19] MEDS: diphenhydrAMINE 50 MG CAP PO SCH (21:11)
[2017-09-19] MEDS: MAGNESIUM HYDROXIDE 2,400 MG/10 ML CUP PO PRN (23:30)
[2017-09-20] MEDS: BUDESONIDE 0.5 MG/2 ML NEBU INHALATION SCH ×2 (01:29→01:30)
[2017-09-20] MEDS: HYDROcodone/APAP 5-325MG 1 EACH TAB PO PRN ×4 (06:07→23:19)
[2017-09-20] MEDS: LEVOTHYROXINE 50 MCG TAB PO SCH (06:08)
[2017-09-20] MEDS: PANTOPRAZOLE 40 MG TABLET PO SCH ×2 (08:11→21:22)
[2017-09-20] MEDS: LOSARTAN 50 MG TAB PO SCH (08:11)
[2017-09-20] MEDS: LORATADINE 10 MG TAB PO SCH (08:11)
[2017-09-20] MEDS: DIAZEPAM 5 MG TAB PO SCH ×2 (08:11→21:23)
[2017-09-20] MEDS: SUCRALFATE 1 GM TAB PO SCH ×4 (08:11→21:18)
[2017-09-20] MEDS: ARIPiprazole 5 MG TAB PO SCH (08:11)
[2017-09-20] MEDS: DULoxetine HCL 30 MG CAPSULE.DR PO SCH ×2 (08:11→21:22)
[2017-09-20] MEDS: ASPIRIN 81 MG PO SCH (08:11)
[2017-09-20] MEDS: HYDROCHLOROTHIAZIDE 25 MG TAB PO SCH (08:12)
[2017-09-20] MEDS: buPROPion 100 MG TAB PO SCH ×2 (08:12→12:55)
[2017-09-20] MEDS: valACYclovir 500 MG TAB PO SCH (08:12)
[2017-09-20] MEDS: FLUTICASONE 50MCG/SPRAY NASAL 16GM EA NOSTRIL SCH ×2 (08:12→21:24)
[2017-09-20] MEDS: METOPROLOL TARTRATE 50 MG TAB PO SCH ×2 (08:12→21:22)
[2017-09-20] MEDS: Methenamine Hippurate [Hiprex] 1 GM PO SCH ×2 (08:15→21:23)
[2017-09-20] MEDS: KETOTIFEN 0.025% OPHTH DROPS 5 ML BTL BOTH EYES SCH ×2 (08:15→21:25)
[2017-09-20] MEDS ORDERED: ARIPiprazole 5 MG TAB PO ONE (09:39)
--- NOTE | 2017-09-20 11:53 | P.PN ---
Progress Note - Text Interval history: The patient is found in the hallway she follows me to an interview room. She expresses her concerns regarding her dog and asked to be discharged as soon as possible. She has been compliant with the Abilify. Staff report overall the patient has been cooperative she has demonstrated some odd inappropriate laughter at times in group. She continues to minimize symptoms with me. Mental status exam: The patient is alert she's cooperative. She seated calmly in the chair. She is verbose at times but directable. She is reporting no suicidal or homicidal ideation. She denies having any hallucinations or any specific delusions although its likely delusional thought persists. Insight and judgment remain impaired. She demonstrates no abnormal involuntary movements she demonstrates no verbal or physical aggressiveness. She does demonstrate some circumstantial thinking and can be briefly tangential. Plan: The patient will continue on the Abilify we will increase the dose to 10 mg daily. We will plan to initiate the Abilify maintena so long as we see benefit from the Abilify and there are no adverse reactions.
[2017-09-20] MEDS: NITROGLYCERIN SL TABS 0.4 MG TAB SUBLINGUAL PRN (16:25)
[2017-09-20 16:58] VITALS: RESP 16
[2017-09-20] MEDS: MONTELUKAST 10 MG TAB PO SCH (21:19)
[2017-09-20] MEDS: diphenhydrAMINE 50 MG CAP PO SCH (21:22)
[2017-09-20] MEDS: MAGNESIUM HYDROXIDE 2,400 MG/10 ML CUP PO PRN (23:16)
[2017-09-21] MEDS: BUDESONIDE 0.5 MG/2 ML NEBU INHALATION SCH (01:59)
[2017-09-21] MEDS: LEVOTHYROXINE 50 MCG TAB PO SCH (05:53)
[2017-09-21] MEDS: HYDROcodone/APAP 5-325MG 1 EACH TAB PO PRN ×3 (06:00→17:59)
[2017-09-21] MEDS: SUCRALFATE 1 GM TAB PO SCH ×4 (08:05→21:05)
[2017-09-21] MEDS: valACYclovir 500 MG TAB PO SCH (09:03)
[2017-09-21] MEDS: FLUTICASONE 50MCG/SPRAY NASAL 16GM EA NOSTRIL SCH ×2 (09:03→21:02)
[2017-09-21] MEDS: LOSARTAN 50 MG TAB PO SCH (09:03)
[2017-09-21] MEDS: buPROPion 100 MG TAB PO SCH ×2 (09:04→12:00)
[2017-09-21] MEDS: DULoxetine HCL 30 MG CAPSULE.DR PO SCH ×2 (09:04→21:05)
[2017-09-21] MEDS: LORATADINE 10 MG TAB PO SCH (09:04)
[2017-09-21] MEDS: HYDROCHLOROTHIAZIDE 25 MG TAB PO SCH (09:04)
[2017-09-21] MEDS: ASPIRIN 81 MG PO SCH (09:04)
[2017-09-21] MEDS: DIAZEPAM 5 MG TAB PO SCH ×2 (09:04→21:09)
[2017-09-21] MEDS: METOPROLOL TARTRATE 50 MG TAB PO SCH ×2 (09:04→21:02)
[2017-09-21] MEDS: ARIPiprazole 10 MG TAB PO SCH (09:04)
[2017-09-21] MEDS: PANTOPRAZOLE 40 MG TABLET PO SCH ×2 (09:04→21:09)
[2017-09-21] MEDS: KETOTIFEN 0.025% OPHTH DROPS 5 ML BTL BOTH EYES SCH ×2 (09:06→21:06)
[2017-09-21] MEDS: Methenamine Hippurate [Hiprex] 1 GM PO SCH ×2 (09:06→21:08)
--- NOTE | 2017-09-21 10:05 | P.PN ---
Progress Note - Text Interval history: The patient is found at the front desk coordinator she follows me to an interview room. She indicates her mood is good. She states that she slept last night appetite is stable. She states that she is attending groups. We reviewed the medication she has no questions or concerns regarding Abilify. We discussed transitioning her to the Abilify maintena injection later this week. Mental status exam: The patient is alert she stressor own clothing hygiene grooming are adequate. Speech is fluent spontaneous nonpressured. She does demonstrate some circumstantial thinking and tangential thinking in frequently. She demonstrates no loose associations or flight of ideas. She denies having any suicidal or homicidal ideation intent or plan. She denies having any auditory or visual hallucinations. She denies having any delusional thoughts however during the course of the interview she does spontaneously speak of concerns regarding people coming into her residence in taking things. She then quickly states "I'm not paranoid". She does straight no abnormal involuntary movements. She demonstrates no verbal or physical aggressiveness. Plan: The patient will continue on the Abilify as written. We will continue to monitor her for safety. If the Abilify seems to be providing benefit and there are no reported adverse effects we will proceed with the Abilify maintena injection tomorrow. Consider discharge in the next 1-2 days.
[2017-09-21 14:07] LABS: Appearance,Urine Clear (Clear); Bilirubin,Urine Negative (Negative); Blood,Urine Negative (Negative); Color,Urine Light Yellow; Glucose,Urine (UA) Negative (Negative); Ketones,Urine Negative (Negative); Leukocyte Esterase,Urine Negative (Negative); Nitrite,Urine Negative (Negative); Protein,Urine Negative (Negative); Specific Gravity,Urine 1.007 (1.001-1.035); Urobilinogen,Urine <2.0 mg/dL (<2.0)
[2017-09-21 15:19] VITALS: BMI 26.2
[2017-09-21] MEDS: diphenhydrAMINE 50 MG CAP PO SCH (21:05)
[2017-09-21] MEDS: MONTELUKAST 10 MG TAB PO SCH (21:05)
[2017-09-21] MEDS: MAGNESIUM HYDROXIDE 2,400 MG/10 ML CUP PO PRN (22:16)
[2017-09-22] MEDS: HYDROcodone/APAP 5-325MG 1 EACH TAB PO PRN ×2 (03:42→09:20)
[2017-09-22 03:43] VITALS: BP 117/61; PULSE 58; TEMP 97.7
[2017-09-22] MEDS: LEVOTHYROXINE 50 MCG TAB PO SCH (05:42)
[2017-09-22] MEDS: SUCRALFATE 1 GM TAB PO SCH ×2 (07:56→12:16)
[2017-09-22] MEDS: PANTOPRAZOLE 40 MG TABLET PO SCH (07:56)
[2017-09-22] MEDS ORDERED: ARIPiprazole 400 MG VIAL (NO CHARGE) IM ONE (08:55)
--- NOTE | 2017-09-22 09:10 | P.DS ---
Providers Date of admission: 09/16/17 20:35 Expected date of discharge: 09/22/17 Attending physician: Augie Toledo Consults: 09/17/17 01:39 Consult Physician Routine Consulting Provider: Mat Sherman Consult Reason/Comments: medical management Do you want consulting provider notified?: Yes, Notify in am Primary care physician: Julito Pina - Discharge Diagnosis(es) (1) Severe manic bipolar 1 disorder with psychotic behavior Current Visit: Yes Status: Acute Priority: High Hospital Course: Brief summary of admission note: This patient is a 67-year-old female who was admitted to the mental health unit from the court. The patient reportedly was refusing to comply with antipsychotic medication. She has a history of bipolar 1 disorder most recent manic with psychosis. She was admitted to the hospital to initiate antipsychotic medication. For full details please refer to the psychiatric evaluation completed by Dr. Knox on 09/16/2017. Summary of hospital course: The patient was admitted on an existing treatment order. We reviewed her presenting symptoms and medication options. Over the weekend Dr. Knox initiated Abilify and the patient was compliant with that medication. We decided to titrate the dose to 10 mg daily. We discussed transitioning to the Abilify maintena as a long-acting injectable. The patient was agreeable. The patient verbalizes no suicidal or homicidal thoughts. She does appear to have some delusional thoughts but she has been able to maintain her activities of daily living. She has been directable. She has demonstrated no agitated behavior. She has tolerated the oral dose of Abilify now for several days since this weekend. It appears to provide benefit she is reporting no adverse side effects. We will prescribe the Abilify maintena today. During the hospitalization the dose of her Cymbalta and Wellbutrin were reduced to prevent further provocation of manic symptoms. Her Synthroid was reduced to 50 g daily by internal medicine. Mental status exam: The patient is an alert female appearing her stated age. Hygiene and grooming are adequate. Speech is fluent spontaneous. She is verbose but directable. She demonstrates some circumstantial thinking. She can demonstrate some tangential thinking but often will be linear and directly answer questions. She does not demonstrate loose associations or flight of ideas. She endorses no auditory or visual hallucinations. She endorses no specific delusions. It is likely that she does have some residual paranoid thinking. She endorses no command auditory hallucinations. She demonstrates no verbal or physical aggressiveness she demonstrates no abnormal involuntary movements. She remains oriented to person place and date. Affect is expansive at times she is able to demonstrate a range of expression. Impressions 1. Bipolar 1 disorder most recent manic with psychosis 2. Hypothyroidism, reported chronic pain, hypertension Plan: The patient will be discharged mental health unit today. She will return to her own residence with act team follow-up. She will continue on Abilify 10 mg daily for the next 2 weeks. She will be given Abilify maintena 300 mg IM today. She will continue to follow with [facility] for outpatient psychiatric services. There is no imminent safety risk she is appropriate for transition back to outpatient care. She is instructed to return to the hospital with any acute safety concerns. She will follow up with her primary care physician and other providers as needed. Patient Condition at Discharge: Stable Plan - Discharge Summary Discharge Rx Participant: No New Discharge Prescriptions: New ARIPiprazole [Abilify] 10 mg PO DAILY #14 tab ARIPiprazole IM [Abilify Maintena] 300 mg IM ONCE #1 vial buPROPion [Wellbutrin] 100 mg PO BID@0900,1300 #60 tab diphenhydrAMINE [Benadryl] 50 mg PO HS cap DULoxetine HCL [Cymbalta] 30 mg PO BID #60 capsule. Levothyroxine Sodium [Synthroid] 50 mcg PO DAILY@0630 #30 tab Continue Aspirin EC [Ecotrin Low Dose] 81 mg PO DAILY HYDROcodone/APAP 10-325MG [[place] 10-325] 1 tab PO Q6H PRN PRN Reason: Pain Pantoprazole Sodium [Protonix] 40 mg PO BID Nitroglycerin Sl Tabs [Nitrostat] 0.4 mg SUBLINGUAL Q5M PRN PRN Reason: Chest Pain Montelukast [Singulair] 10 mg PO HS Methenamine Hippurate [Hiprex] 1 gm PO BID Loratadine [Claritin] 10 mg PO DAILY Fluticasone Nasal [place] [Flonase Nasal [place]] 1 spray EA NOSTRIL BID EPINEPHrine [Epipen 2-River] 0.3 mg IM ONCE PRN PRN Reason: Anaphylaxis Fluticasone Propionate [Flovent Diskus] 1 puff INHALATION RT-BID Sucralfate [Carafate] 1 gm PO ACHS Hydrochlorothiazide [Hydrodiuril] 12.5 mg PO DAILY valACYclovir [Valtrex] 500 mg PO DAILY Ondansetron [Zofran] 4 mg PO Q4H PRN PRN Reason: Nausea And Vomiting Metoprolol/Hydrochlorothiazide [Lopressor Hct 50-25 mg Tab] 1 tab PO BID Losartan Potassium 50 mg PO DAILY Diazepam [Valium] 5 mg PO BID Olopatadine HCl [Pataday] 1 drop BOTH EYES DAILY PRN PRN Reason: Allergy Symptoms Discontinued buPROPion [Wellbutrin] 200 mg PO BID DULoxetine HCL [Cymbalta] 60 mg PO BID diphenhydrAMINE [Benadryl] 50 mg PO HS Levothyroxine Sodium [Synthroid] 88 mcg PO DAILY Discharge Medication List Aspirin EC [Ecotrin Low Dose] 81 mg PO DAILY 04/09/16 [History] HYDROcodone/APAP 10-325MG [[place] 10-325] 1 tab PO Q6H PRN 04/09/16 [History] Pantoprazole Sodium [Protonix] 40 mg PO BID 04/09/16 [History] EPINEPHrine [Epipen 2-River] 0.3 mg IM ONCE PRN 11/16/16 [History] Fluticasone Nasal [place] [Flonase Nasal [place]] 1 spray EA NOSTRIL BID 11/16/16 [ History] Loratadine [Claritin] 10 mg PO DAILY 11/16/16 [History] Methenamine Hippurate [Hiprex] 1 gm PO BID 11/16/16 [History] Montelukast [Singulair] 10 mg PO HS 11/16/16 [History] Nitroglycerin Sl Tabs [Nitrostat] 0.4 mg SUBLINGUAL Q5M PRN 11/16/16 [History] Fluticasone Propionate [Flovent Diskus] 1 puff INHALATION RT-BID 11/24/16 [ History] Hydrochlorothiazide [Hydrodiuril] 12.5 mg PO DAILY 12/13/16 [History] Sucralfate [Carafate] 1 gm PO ACHS 12/13/16 [History] Ondansetron [Zofran] 4 mg PO Q4H PRN 12/21/16 [History] valACYclovir [Valtrex] 500 mg PO DAILY 12/21/16 [History] Diazepam [Valium] 5 mg PO BID 09/16/17 [History] Losartan Potassium 50 mg PO DAILY 09/16/17 [History] Metoprolol/Hydrochlorothiazide [Lopressor Hct 50-25 mg Tab] 1 tab PO BID [History] Olopatadine HCl [Pataday] 1 drop BOTH EYES DAILY PRN 09/16/17 [History] ARIPiprazole IM [Abilify Maintena] 300 mg IM ONCE #1 vial 09/22/17 [Rx] ARIPiprazole [Abilify] 10 mg PO DAILY #14 tab 09/22/17 [Rx] DULoxetine HCL [Cymbalta] 30 mg PO BID #60 capsule.dr 09/22/17 [Rx] Levothyroxine Sodium [Synthroid] 50 mcg PO DAILY@0630 #30 tab 09/22/17 [Rx] buPROPion [Wellbutrin] 100 mg PO BID@0900,1300 #60 tab 09/22/17 [Rx] diphenhydrAMINE [Benadryl] 50 mg PO HS cap 09/22/17 [Rx] Follow up Appointment(s)/Referral(s): [facility] [Outside] - 09/23/17 (Appointment with [facility] will be day of discharge. 10-11-17 @ 2:[address] Piña) Julito Pina MD [Primary Care Provider] - 1-2 days
[2017-09-22] MEDS: FLUTICASONE 50MCG/SPRAY NASAL 16GM EA NOSTRIL SCH (09:16)
[2017-09-22] MEDS: METOPROLOL TARTRATE 50 MG TAB PO SCH (09:17)
[2017-09-22] MEDS: LOSARTAN 50 MG TAB PO SCH (09:17)
[2017-09-22] MEDS: DIAZEPAM 5 MG TAB PO SCH (09:17)
[2017-09-22] MEDS: DULoxetine HCL 30 MG CAPSULE.DR PO SCH (09:17)
[2017-09-22] MEDS: buPROPion 100 MG TAB PO SCH ×2 (09:17→12:15)
[2017-09-22] MEDS: valACYclovir 500 MG TAB PO SCH (09:17)
[2017-09-22] MEDS: LORATADINE 10 MG TAB PO SCH (09:17)
[2017-09-22] MEDS: KETOTIFEN 0.025% OPHTH DROPS 5 ML BTL BOTH EYES SCH ×2 (09:17→09:24)
[2017-09-22] MEDS: ASPIRIN 81 MG PO SCH (09:17)
[2017-09-22] MEDS: ARIPiprazole 10 MG TAB PO SCH (09:17)
[2017-09-22] MEDS: HYDROCHLOROTHIAZIDE 25 MG TAB PO SCH (09:17)
[2017-09-22] MEDS: Methenamine Hippurate [Hiprex] 1 GM PO SCH (09:18)
== END 2017-09-22 14:09 | disposition home or self-care (01) | DRG 885 ==
LOC: EC 13:11 → 3MHU 20:35
PROVIDERS: ADMIT Psychiatry & Neurology Psychiatry; ATTEND Psychiatry & Neurology Psychiatry
DX: F31.13 Bipolar disorder, current episode manic without psychotic features, severe (principal); E03.9 Hypothyroidism, unspecified; F43.10 Post-traumatic stress disorder, unspecified; G89.29 Other chronic pain; I12.9 Hypertensive chronic kidney disease with stage 1 through stage 4 chronic kidney disease, or unspecified chronic kidney disease; J44.9 Chronic obstructive pulmonary disease, unspecified; K21.9 Gastro-esophageal reflux disease without esophagitis; M47.812 Spondylosis without myelopathy or radiculopathy, cervical region; M47.814 Spondylosis without myelopathy or radiculopathy, thoracic region; N18.3 Chronic kidney disease, stage 3 (moderate); Z79.51 Long term (current) use of inhaled steroids; Z79.82 Long term (current) use of aspirin; Z79.899 Other long term (current) drug therapy; Z82.5 Family history of asthma and other chronic lower respiratory diseases; Z85.820 Personal history of malignant melanoma of skin; Z91.14 Patient's other noncompliance with medication regimen; Z79.890 Hormone replacement therapy; Z88.5 Allergy status to narcotic agent; Z88.8 Allergy status to other drugs, medicaments and biological substances; Z88.6 Allergy status to analgesic agent; Z88.1 Allergy status to other antibiotic agents; Z91.030 Bee allergy status
CPT/HCPCS: 80053; 80061; 80306; 81003; 82075; 83036; 84443; 84484; 85025; 93005; 96372; 99285

== ENCOUNTER 2017-10-02 09:39 | Emergency (ER) | payer MEDICARE, OTHER ==
[2017-10-02] MEDS ORDERED: diphenhydrAMINE 50 MG/ML 1 ML VIAL IVP STA (10:04)
[2017-10-02] MEDS ORDERED: KETOROLAC 30 MG/ML 1 ML VIAL IVP STA (10:04)
[2017-10-02] MEDS ORDERED: SODIUM CHLORIDE 0.9% 1,000 ML IV STA (10:04)
[2017-10-02] MEDS ORDERED: VALPROATE SODIUM 500 MG in SODIUM CHLORIDE 0.9% 50 ML IVPB STA (10:05)
--- NOTE | 2017-10-02 10:19 | ED ---
General Adult HPI - General Chief complaint: Fall Stated complaint: Fall Time Seen by Provider: 10/02/17 09:47 Source: patient, RN notes reviewed Mode of arrival: EMS Limitations: no limitations - History of Present Illness Initial comments: Patient 67-year-old female who presents emergency room today by EMS with multiple complaints. Patient does admit to chronic headaches persist over the last 4 weeks she's been having a headache. She states that it's from her neck and radiates up. She states this is an antibiotic that she's had in the past was nothing new or different. Patient also admits to some hip pain. She states she was told that she needed hip replacement. She states that she was doing a lot of walking yesterday. She states that when she was in her bathroom yesterday she slipped after getting out of the shower and landed on the right as well. She has some increased pain to the right hip and lower back area. Denies any other complaints or associated symptoms. Patient denies any recent fever, chills, shortness of breath, chest pain, abdominal pain, nausea or vomiting, numbness or tingling, headaches or visual changes, or any other complaints. - Related Data Home Medications Medication Instructions Recorded Confirmed RX: Aspirin EC [Ecotrin Low Dose] 81 mg PO DAILY 04/09/16 09/16/17 RX: HYDROcodone/APAP 10-325MG 1 tab PO Q6H PRN 04/09/16 09/16/17 [[place] 10-325] RX: Pantoprazole Sodium [Protonix] 40 mg PO BID 04/09/16 09/16/17 RX: EPINEPHrine [Epipen 2-River] 0.3 mg IM ONCE PRN 11/16/16 09/16/17 RX: Fluticasone Nasal [place] 1 spray EA NOSTRIL BID 11/16/16 09/16/17 [Flonase Nasal [place]] RX: Loratadine [Claritin] 10 mg PO DAILY 11/16/16 09/16/17 RX: Methenamine Hippurate [Hiprex] 1 gm PO BID 11/16/16 09/16/17 RX: Montelukast [Singulair] 10 mg PO HS 11/16/16 09/16/17 RX: Nitroglycerin Sl Tabs 0.4 mg SUBLINGUAL Q5M PRN 11/16/16 09/16/17 [Nitrostat] RX: Fluticasone Propionate 1 puff INHALATION RT-BID 11/24/16 09/16/17 [Flovent Diskus] RX: Hydrochlorothiazide 12.5 mg PO DAILY 12/13/16 09/16/17 [Hydrodiuril] RX: Sucralfate [Carafate] 1 gm PO ACHS 12/13/16 09/16/17 RX: Ondansetron [Zofran] 4 mg PO Q4H PRN 12/21/16 09/16/17 RX: valACYclovir [Valtrex] 500 mg PO DAILY 12/21/16 09/16/17 RX: Diazepam [Valium] 5 mg PO BID 09/16/17 09/16/17 RX: Losartan Potassium 50 mg PO DAILY 09/16/17 09/16/17 RX: Metoprolol/Hydrochlorothiazide 1 tab PO BID 09/16/17 09/16/17 [Lopressor Hct 50-25 mg Tab] RX: Olopatadine HCl [Pataday] 1 drop BOTH EYES DAILY PRN 09/16/17 09/16/17 Previous Rx's Medication Instructions Recorded RX: ARIPiprazole IM [Abilify 300 mg IM ONCE #1 vial 09/22/17 Maintena] RX: ARIPiprazole [Abilify] 10 mg PO DAILY #14 tab 09/22/17 RX: DULoxetine HCL [Cymbalta] 30 mg PO BID #60 capsule. 09/22/17 RX: Levothyroxine Sodium 50 mcg PO DAILY@0630 #30 tab 09/22/17 [Synthroid] RX: buPROPion [Wellbutrin] 100 mg PO BID@0900,1300 #60 tab 09/22/17 RX: diphenhydrAMINE [Benadryl] 50 mg PO HS cap 09/22/17 Allergies Allergy/AdvReac Type Severity Reaction Status Date / Time carisoprodol [From Soma] Allergy Unknown Verified 09/16/17 13:40 chlorpromazine Allergy Unknown Verified 09/16/17 13:40 [From Thorazine] ciprofloxacin [From Cipro] Allergy Unknown Verified 09/16/17 13:40 clonazepam [From Klonopin] Allergy Unknown Verified 09/16/17 13:40 cyclobenzaprine Allergy Unknown Verified 09/16/17 13:40 [From Flexeril] metoclopramide [From Reglan] Allergy Anaphylaxis Verified 09/16/17 13:40 metronidazole [From Flagyl] Allergy Anaphylaxis Verified 09/16/17 13:40 morphine Allergy Rash/Hives Verified 09/16/17 13:40 naproxen Allergy Unknown Verified 09/16/17 13:40 papaya Allergy Rash/Hives Verified 09/16/17 13:40 prednisone Allergy Anaphylaxis Verified 09/16/17 13:40 prochlorperazine Allergy Anaphylaxis Verified 09/16/17 13:40 [From Compazine] venom-honey bee Allergy Anaphylaxis Verified 09/16/17 13:40 [bee venom (honey bee)] ketorolac [From Toradol] AdvReac Severe Abdominal Verified 09/16/17 13:40 Pain baclofen AdvReac Twitching Verified 09/16/17 13:40 ibuprofen [From Motrin] AdvReac Abdominal Verified 09/16/17 13:40 Pain meperidine [From Demerol] AdvReac Rapid Verified 09/16/17 13:40 Heart Rate Phenothiazines AdvReac Altered Verified 09/16/17 13:40 Mental Status Review of Systems ROS Statement: Those systems with pertinent positive or pertinent negative responses have been documented in the HPI. ROS Other: All systems not noted in ROS Statement are negative. Past Medical History Past Medical History: Asthma, Cancer, COPD, GERD/Reflux, Hypertension, Pneumonia , Thyroid Disorder Additional Past Medical History / Comment(s): shingles, RT BREAST LUMPECTOMY/ CANCER, THYROID REMOVE, CATARACTS, BRONCHITIS, MONO TEENAGER, LITE CASE OF POLIO AGE 8, MELANOMA SKIN CANCER REMOVED, History of Any Multi-Drug Resistant Organisms: MRSA Date of last positivie culture/infection: 2009 MDRO Source:: LEFT ULNAR BONE Past Surgical History: Appendectomy, Back Surgery, Cholecystectomy, Orthopedic Surgery Additional Past Surgical History / Comment(s): EYE SX FOR LAZY EYE, SX ON TEAR DUCTS, BACK SURGERY MICRO DISC, LT WRIST BROKEN 9 GALLO HAD 13 Surgeries TO CORRECT, left shoulder and humorous shattered from a fall with 2 surgeries to correct, LAPROSCOPIES- BENIGN TUNOR SIZE OF GRAPFRUIT REMOVED AGE 11 OR 1, RT BREAST BX/LUMPECTOMY,LT PINK FINGER SX TO STRAIGHTEN.MELANOMA SKIN CANCER REMOVED. Past Anesthesia/Blood Transfusion Reactions: No Reported Reaction Additional Past Anesthesia/Blood Transfusion Reaction / Comment(s): CLAUSTERPHOBIA Past Psychological History: Anxiety, Depression, PTSD Smoking Status: Never smoker Past Alcohol Use History: Occasional Past Drug Use History: None Reported - Past Family History Mother Family Medical History: Asthma Additional Family Medical History / Comment(s): ETOH/SMOKER Father Family Medical History: Cancer, Liver Disease Additional Family Medical History / Comment(s): ESOPHOGEAL CANCER, ETOH General Exam - General Exam Comments Initial Comments: General: The patient is awake and alert, in no distress, and does not appear acutely ill. Eye: Pupils are equal, round and reactive to light, extra-ocular movements are intact. No nystagmus. There is normal conjunctiva bilaterally. No signs of icterus. Ears, nose, mouth and throat: There are moist mucous membranes and no oral lesions. Neck: The neck is supple, there is no tenderness or JVD. Cardiovascular: There is a regular rate and rhythm. No murmur, rub or gallop is appreciated. Respiratory: Lungs are clear to auscultation, respirations are non-labored, breath sounds are equal. No wheezes, stridor, rales, or rhonchi. Musculoskeletal: Normal ROM. Normal appearance of the right no obvious deformity. No shortening or rotation. Mild tenderness with a long roll maneuver. Mildly tender on the lateral aspect of the right hip on palpation. [place] deformity. No tenderness to the thoracic or lumbar spine. Strength 5/ 5. Sensation intact. Pulses equal bilaterally 2+. Neurological: A&O x 3. CN II-XII intact, There are no obvious motor or sensory deficits. Coordination appears grossly intact. Speech is normal. Skin: Skin is warm and dry and no rashes or lesions are noted. Psychiatric: Cooperative, appropriate mood & affect, normal judgment. Limitations: no limitations Course Vital Signs 10/02/17 09:47 Temperature 98.3 F Pulse Rate 55 L Respiratory 18 Rate Blood Pressure 130/58 O2 Sat by Pulse 98 Oximetry Medical Decision Making - Medical Decision Making X-rays of the lumbar spine and right hip reviewed and shows arthritic changes. No acute abnormality. Results were discussed with the patient. Patient has mid to headache that is consistent with chronic headaches that she's had in the past. She was given a accommodation of Toradol, Benadryl, Zofran, fluids and Depakote. Patient feeling better at this time. Will be discharged home. She is advised follow-up orthopedics for further evaluation of right hip and back pain. Disposition Clinical Impression: Fall, Right hip pain, Headache Disposition: HOME SELF-CARE Condition: Good Instructions: Hip Pain (ED) Additional Instructions: Please follow-up the family doctor and orthopedics as discussed. Please return to emergency room for any other concerns. Is patient prescribed a controlled substance at d/c from ED?: No Referrals: Julito Pina MD [Primary Care Provider] - 1-2 days Time of Disposition: 11:47
--- NOTE | 2017-10-02 11:16 | XR ---
EXAMINATION TYPE: XR Hip RT and AP Pelvis DATE OF EXAM: 10/02/2017 COMPARISON: NONE HISTORY: Hip pain after a fall TECHNIQUE: A single AP view of the pelvis is obtained. Two views of the right hip are obtained. FINDINGS: There is no acute fracture/dislocation evident in the pelvis. The hip and sacroiliac join ts appear symmetric and unremarkable. The overlying soft tissue appears unremarkable. Two views of right hip show no acute fracture or dislocation. Extensive degenerative changes are seen in the right femoral acetabular joint demonstrated as marginal osteophytes, joint space narrowing an d acetabular roof sclerosis. Mild degenerative changes of the left femoral acetabular joint are seen. Moderate degenerative changes of the lumbosacral junction are present. Numerous calcified soft tissu e rounded structures likely represent injection granulomas. The overlying soft tissue is unremarkabl e. IMPRESSION: There is no acute fracture or dislocation in the pelvis or the right hip. 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
--- NOTE | 2017-10-02 11:17 | XR ---
EXAMINATION TYPE: XR lumbar spine 2 or 3V DATE OF EXAM: 10/02/2017 CLINICAL HISTORY: Low back pain after a fall TECHNIQUE: Frontal and lateral images of the lumbar spine are obtained. COMPARISON: 12/13/2016 FINDINGS: There are 5 lumbar type vertebral bodies identified. The lumbar spine shows satisfactory alignment without evidence of acute fracture or dislocation. Vertebral body heights and disk space he ights are within normal limits. Moderate degenerative changes are seen of the lower lumbar spine demo nstrated as facet arthropathy at L4-5 and L5-S1 and intervertebral disc space narrowing at L5-S1. The overlying soft tissue appears unremarkable. Cholecystectomy clips are noted within the right upper q uadrant. IMPRESSION: 1. No acute fracture or dislocation is seen in the lumbar spine. 2. Moderate degenerative changes of the lower lumbar spine.
[2017-10-02] MEDS ORDERED: ONDANSETRON 4 MG/2 ML VIAL IVP STA (11:44)
[2017-10-02 12:18] VITALS: BP 143/70; PULSE 58; RESP 16; TEMP 97.9
== END 2017-10-02 12:17 | disposition home or self-care (01) ==
LOC: EC 09:39
DX: M25.551 Pain in right hip (principal); R51 Headache; M54.5 Low back pain; J44.9 Chronic obstructive pulmonary disease, unspecified; K21.9 Gastro-esophageal reflux disease without esophagitis; I10 Essential (primary) hypertension; F41.9 Anxiety disorder, unspecified; Z85.820 Personal history of malignant melanoma of skin; Z86.14 Personal history of Methicillin resistant Staphylococcus aureus infection; Z98.890 Other specified postprocedural states; Z79.82 Long term (current) use of aspirin; Z79.51 Long term (current) use of inhaled steroids; Z79.899 Other long term (current) drug therapy; Z88.8 Allergy status to other drugs, medicaments and biological substances; Z88.1 Allergy status to other antibiotic agents; Z88.5 Allergy status to narcotic agent; Z88.6 Allergy status to analgesic agent; Z91.018 Allergy to other foods; Z91.030 Bee allergy status; W01.0XXA Fall on same level from slipping, tripping and stumbling without subsequent striking against object, initial encounter; Y92.002 Bathroom of unspecified non-institutional (private) residence as the place of occurrence of the external cause
CPT/HCPCS: 99283; 96365; 96375 ×3; 72100; 73502; J1200; J2405; J1885

== ENCOUNTER 2018-04-24 10:55 | Emergency (ER) | payer MEDICARE, OTHER ==
[2018-04-24 11:04] VITALS: PULSE 59; RESP 18; TEMP 98.5
--- NOTE | 2018-04-24 11:52 | ED ---
General Adult HPI - General Chief complaint: Urogenital Stated complaint: POSS UTI Time Seen by Provider: 04/24/18 11:24 Source: patient, RN notes reviewed Mode of arrival: ambulatory Limitations: no limitations - History of Present Illness Initial comments: 67-year-old female with a past medical history of asthma, COPD, hypertension, breast cancer, sepsis presents to the emergency department for a chief complaint of urinary symptoms 4 days. Patient states she has had burning with urination as well as urinary urgency. She admits to lower abdominal pressure, denies any pain. States bowel movements are normal. Does admit to left back pain. Patient states her PSYCHIATRIC NURSING AIDE diagnosed her with a urinary tract infection but patient presented to the emergency department instead of taking the oral antibiotics. She denies any fevers or chills at home. Patient has no other complaints at this time including shortness of breath, chest pain, abdominal pain, nausea or vomiting, headache, or visual changes. - Related Data Home Medications Medication Instructions Recorded Confirmed Aspirin EC [Ecotrin Low Dose] 81 mg PO DAILY 04/09/16 04/24/18 HYDROcodone/APAP 10-325MG [[place] 1 tab PO TID PRN 04/09/16 04/24/18 10-325] Pantoprazole Sodium [Protonix] 40 mg PO BID 04/09/16 04/24/18 EPINEPHrine [Epipen 2-River] 0.3 mg IM ONCE PRN 11/16/16 04/24/18 Fluticasone Nasal [place] [Flonase 1 spray EA NOSTRIL BID 11/16/16 04/24/18 Nasal [place]] Loratadine [Claritin] 10 mg PO DAILY 11/16/16 04/24/18 Methenamine Hippurate [Hiprex] 1 gm PO BID 11/16/16 04/24/18 Montelukast [Singulair] 10 mg PO HS 11/16/16 04/24/18 Nitroglycerin Sl Tabs [Nitrostat] 0.4 mg SUBLINGUAL Q5M PRN 11/16/16 04/24/18 Fluticasone Propionate [Flovent 1 puff INHALATION RT-BID 11/24/16 04/24/18 Diskus] Hydrochlorothiazide [Hydrodiuril] 12.5 mg PO DAILY 12/13/16 04/24/18 Sucralfate [Carafate] 1 gm PO ACHS 12/13/16 04/24/18 Ondansetron [Zofran] 4 mg PO Q4H PRN 12/21/16 04/24/18 valACYclovir [Valtrex] 500 mg PO DAILY 12/21/16 04/24/18 Diazepam [Valium] 5 mg PO BID 09/16/17 04/24/18 Losartan Potassium 50 mg PO DAILY 09/16/17 04/24/18 Metoprolol/Hydrochlorothiazide 1 tab PO BID 09/16/17 04/24/18 [Lopressor Hct 50-25 mg Tab] Olopatadine HCl [Pataday] 1 drop BOTH EYES DAILY PRN 09/16/17 04/24/18 DULoxetine HCL [Cymbalta] 60 mg PO BID 04/24/18 04/24/18 Levothyroxine Sodium [Synthroid] 88 mcg PO DAILY 04/24/18 04/24/18 Paliperidone [Invega] 3 mg PO DAILY 04/24/18 04/24/18 Topiramate [Topamax] 25 mg PO BID 04/24/18 04/24/18 Previous Rx's Medication Instructions Recorded Cephalexin [Keflex] 500 mg PO Q6H 14 Days cap 04/24/18 Allergies Allergy/AdvReac Type Severity Reaction Status Date / Time carisoprodol [From Soma] Allergy Unknown Verified 04/24/18 11:33 chlorpromazine Allergy Unknown Verified 04/24/18 11:33 [From Thorazine] ciprofloxacin [From Cipro] Allergy Unknown Verified 04/24/18 11:33 clonazepam [From Klonopin] Allergy Unknown Verified 04/24/18 11:33 cyclobenzaprine Allergy Unknown Verified 04/24/18 11:33 [From Flexeril] metoclopramide [From Reglan] Allergy Anaphylaxis Verified 04/24/18 11:33 metronidazole [From Flagyl] Allergy Anaphylaxis Verified 04/24/18 11:33 morphine Allergy Rash/Hives Verified 04/24/18 11:33 naproxen Allergy Unknown Verified 04/24/18 11:33 papaya Allergy Rash/Hives Verified 04/24/18 11:33 prednisone Allergy Anaphylaxis Verified 04/24/18 11:33 prochlorperazine Allergy Anaphylaxis Verified 04/24/18 11:33 [From Compazine] venom-honey bee Allergy Anaphylaxis Verified 04/24/18 11:33 [bee venom (honey bee)] ketorolac [From Toradol] AdvReac Severe Abdominal Verified 04/24/18 11:33 Pain baclofen AdvReac Twitching Verified 04/24/18 11:33 ibuprofen [From Motrin] AdvReac Abdominal Verified 04/24/18 11:33 Pain meperidine [From Demerol] AdvReac Rapid Verified 04/24/18 11:33 Heart Rate Phenothiazines AdvReac Altered Verified 04/24/18 11:33 Mental Status Review of Systems ROS Statement: Those systems with pertinent positive or pertinent negative responses have been documented in the HPI. ROS Other: All systems not noted in ROS Statement are negative. Past Medical History Past Medical History: Asthma, Cancer, COPD, GERD/Reflux, Hypertension, Pneumonia , Thyroid Disorder Additional Past Medical History / Comment(s): shingles, RT BREAST LUMPECTOMY/ CANCER, THYROID REMOVE, CATARACTS, BRONCHITIS, MONO TEENAGER, LITE CASE OF POLIO AGE 8, MELANOMA SKIN CANCER REMOVED, History of Any Multi-Drug Resistant Organisms: MRSA Date of last positivie culture/infection: 2009 MDRO Source:: LEFT ULNAR BONE Past Surgical History: Appendectomy, Back Surgery, Cholecystectomy, Orthopedic Surgery Additional Past Surgical History / Comment(s): EYE SX FOR LAZY EYE, SX ON TEAR DUCTS, BACK SURGERY MICRO DISC, LT WRIST BROKEN 7 GALLO HAD 13 Surgeries TO CORRECT, left shoulder and humorous shattered from a fall with 2 surgeries to correct, LAPROSCOPIES- BENIGN TUNOR SIZE OF GRAPFRUIT REMOVED AGE 11 OR 1, RT BREAST BX/LUMPECTOMY,LT PINK FINGER SX TO STRAIGHTEN.MELANOMA SKIN CANCER REMOVED. Past Anesthesia/Blood Transfusion Reactions: No Reported Reaction Additional Past Anesthesia/Blood Transfusion Reaction / Comment(s): CLAUSTERPHOBIA Past Psychological History: Anxiety, Depression, PTSD Smoking Status: Never smoker Past Alcohol Use History: Occasional Past Drug Use History: None Reported - Past Family History Mother Family Medical History: Asthma Additional Family Medical History / Comment(s): ETOH/SMOKER Father Family Medical History: Cancer, Liver Disease Additional Family Medical History / Comment(s): ESOPHOGEAL CANCER, ETOH General Exam Limitations: no limitations General appearance: alert, in no apparent distress Head exam: Present: atraumatic, normocephalic, normal inspection Eye exam: Present: normal appearance, PERRL, EOMI. Absent: scleral icterus, conjunctival injection, periorbital swelling ENT exam: Present: normal exam, mucous membranes moist Neck exam: Present: normal inspection, full ROM. Absent: tenderness, meningismus, lymphadenopathy Respiratory exam: Present: normal lung sounds bilaterally. Absent: respiratory distress, wheezes, rales, rhonchi, stridor Cardiovascular Exam: Present: regular rate, normal rhythm, normal heart sounds. Absent: systolic murmur, diastolic murmur, rubs, gallop, clicks GI/Abdominal exam: Present: soft, normal bowel sounds. Absent: distended, tenderness (No significant abdominal tenderness noted), guarding, rebound, rigid Back exam: Present: CVA tenderness (L) (Minimal left CVA tenderness). Absent: CVA tenderness (R) Neurological exam: Present: alert, oriented X3, CN II-XII intact Psychiatric exam: Present: normal affect, normal mood Course Vital Signs 04/24/18 11:00 Temperature 98.5 F Pulse Rate 59 L Respiratory 18 Rate Blood Pressure 115/71 O2 Sat by Pulse 100 Oximetry Medical Decision Making - Medical Decision Making 67-year-old female presents to the emergency department for a chief complaint of urinary symptoms. Patient has had burning with urination as well as urgency. She has some lower pelvic pressure when urinating as well. She denies any significant abdominal pain, no abdominal pain on exam. Vitals are within normal limits, patient is afebrile, pulse rate 59, normotensive blood pressure. Patient does not meet Sirs criteria. CBC and CMP unremarkable. White blood cell count 8.4. Creatinine 1.4 which is only minimally elevated from patient's baseline. Urine does show evidence of infection with 150 white blood cells and a positive nitrite. Blood and urine were cultured. Patient was given fluids and Rocephin here in the emergency department. She is tolerating solids and liquids. She denies any nausea or vomiting. She denies any fevers or chills. She states overall she is feeling well. She states she feels comfortable going home and would prefer to do this than be admitted. She was educated to return if she is not able to tolerate solids or liquids, has severe pain, develops fevers, or develops any worsening symptoms. She will follow up with primary care. I did discuss culture results pending. Discussed case with Dr. Quiñonez - Lab Data Result diagrams: 04/24/18 12:17 18 12:17 Lab Results 04/24/1818 18 Range/Units 11:30 12:17 12:17 WBC 8.4 (3.8-10.6) k/uL RBC 4.09 (3.80-5.40) m/uL Hgb 12.5 (11.4-16.0) gm/dL Hct 39.7 (34.0-46.0) % MCV 97.1 (80.0-100.0) fL MCH 30.6 (25.0-35.0) pg MCHC 31.5 (31.0-37.0) g/dL RDW 14.8 (11.5-15.5) % Plt Count 293 (150-450) k/uL Neutrophils % 71 % Lymphocytes % 21 % Monocytes % 6 % Eosinophils % 1 % Basophils % 0 % Neutrophils # 5.9 (1.3-7.7) k/uL Lymphocytes # 1.7 (1.0-4.8) k/uL Monocytes # 0.5 (0-1.0) k/uL Eosinophils # 0.1 (0-0.7) k/uL Basophils # 0.0 (0-0.2) k/uL Sodium 140 (137-145) mmol/L Potassium 3.3 L (3.5-5.1) mmol/L Chloride 105 (98-107) mmol/L Carbon Dioxide 24 (22-30) mmol/L Anion Gap 11 mmol/L BUN 38 H (7-17) mg/dL Creatinine 1.41 H (0.52-1.04) mg/dL Est GFR (CKD-EPI)AfAm 44 (>60 ml/min/1.73 sqM) Est GFR (CKD-EPI)NonAf 38 (>60 ml/min/1.73 sqM) Glucose 93 (74-99) mg/dL Plasma Lactic Acid [place] (0.7-2.0) mmol/L Calcium 9.9 (8.4-10.2) mg/dL Total Bilirubin 0.5 (0.2-1.3) mg/dL AST 27 (14-36) U/L ALT 39 (9-52) U/L Alkaline Phosphatase 113 (38-126) U/L Total Protein 7.3 (6.3-8.2) g/dL Albumin 4.4 (3.5-5.0) g/dL Urine Color Yellow Urine Appearance Cloudy H (Clear) Urine pH 6.5 (5.0-8.0) Ur Specific [place] 1.018 (1.001-1.035) Urine Protein Trace H (Negative) Urine Glucose (UA) Negative (Negative) Urine Ketones Negative (Negative) Urine Blood Small H (Negative) Urine Nitrite Positive H (Negative) Urine Bilirubin Negative (Negative) Urine Urobilinogen <2.0 (<2.0) mg/dL Ur Leukocyte Esterase Large H (Negative) Urine RBC 14 H (0-5) /hpf Urine WBC 150 H (0-5) /hpf Urine WBC Clumps Occasional H (None) /hpf Ur Squamous Epith Cells 2 (0-4) /hpf Urine Bacteria Few H (None) /hpf Urine Mucus Rare H (None) /hpf 12/17/18 Range/Units 12:17 WBC (3.8-10.6) k/uL RBC (3.80-5.40) m/uL Hgb (11.4-16.0) gm/dL Hct (34.0-46.0) % MCV (80.0-100.0) fL MCH (25.0-35.0) pg MCHC (31.0-37.0) g/dL RDW (11.5-15.5) % Plt Count (150-450) k/uL Neutrophils % % Lymphocytes % % Monocytes % % Eosinophils % % Basophils % % Neutrophils # (1.3-7.7) k/uL Lymphocytes # (1.0-4.8) k/uL Monocytes # (0-1.0) k/uL Eosinophils # (0-0.7) k/uL Basophils # (0-0.2) k/uL Sodium (137-145) mmol/L Potassium (3.5-5.1) mmol/L Chloride (98-107) mmol/L Carbon Dioxide (22-30) mmol/L Anion Gap mmol/L BUN (7-17) mg/dL Creatinine (0.52-1.04) mg/dL Est GFR (CKD-EPI)AfAm (>60 ml/min/1.73 sqM) Est GFR (CKD-EPI)NonAf (>60 ml/min/1.73 sqM) Glucose (74-99) mg/dL Plasma Lactic Acid [place] 0.9 (0.7-2.0) mmol/L Calcium (8.4-10.2) mg/dL Total Bilirubin (0.2-1.3) mg/dL AST (14-36) U/L ALT (9-52) U/L Alkaline Phosphatase (38-126) U/L Total Protein (6.3-8.2) g/dL Albumin (3.5-5.0) g/dL Urine Color Urine Appearance (Clear) Urine pH (5.0-8.0) Ur Specific [place] (1.001-1.035) Urine Protein (Negative) Urine Glucose (UA) (Negative) Urine Ketones (Negative) Urine Blood (Negative) Urine Nitrite (Negative) Urine Bilirubin (Negative) Urine Urobilinogen (<2.0) mg/dL Ur Leukocyte Esterase (Negative) Urine RBC (0-5) /hpf Urine WBC (0-5) /hpf Urine WBC Clumps (None) /hpf Ur Squamous Epith Cells (0-4) /hpf Urine Bacteria (None) /hpf Urine Mucus (None) /hpf Disposition Clinical Impression: Urinary tract infection, Pyelonephritis Disposition: HOME SELF-CARE Condition: Good Instructions: Urinary Tract Infection in Women (ED), Kidney Infection (ED) Additional Instructions: Please take medications as directed. Follow-up with primary care in 1-2 days. Return immediately to the emergency department if you have any fevers, nausea vomiting, or other worsening symptoms. Prescriptions: Cephalexin [Keflex] 500 mg PO Q6H 14 Days cap Is patient prescribed a controlled substance at d/c from ED?: No Referrals: Julito Pina MD [Primary Care Provider] - 1-2 days Time of Disposition: 15:03
[2018-04-24 12:17] LABS: Appearance,Urine Cloudy (Clear); Bacteria,Urine Few /hpf; Bilirubin,Urine Negative (Negative); Blood,Urine Small (Negative); Color,Urine Yellow; Glucose,Urine (UA) Negative (Negative); Ketones,Urine Negative (Negative); Leukocyte Esterase,Urine Large (Negative); Mucus,Urine Rare /hpf; Nitrite,Urine Positive (Negative); PH, Urine 6.5 (5.0-8.0); Protein,Urine Trace (Negative); RBC,Urine 14 /hpf (0-5); Specific Gravity,Urine 1.018 (1.001-1.035); Squamous Epithelial Cell,Urine 2 /hpf (0-4); Urobilinogen,Urine <2.0 mg/dL (<2.0); WBC,Urine 150 /hpf (0-5)
[2018-04-24] MEDS: SODIUM CHLORIDE 0.9% 500 ML 500 ML IV SCH ×2 (12:22→13:22)
[2018-04-24 14:09] LABS: Albumin 4.4 g/dL (3.5-5.0); Calcium 9.9 mg/dL (8.4-10.2); Potassium 3.3 mmol/L (3.5-5.1); Total Bilirubin 0.5 mg/dL (0.2-1.3); Total Protein 7.3 g/dL (6.3-8.2)
[2018-04-24 14:10] LABS: Basophils % (A) 0 %; Eosinophils # (A) 0.1 k/uL (0-0.7); Eosinophils % (A) 1 %; HCT 39.7 % (34.0-46.0); HGB 12.5 gm/dL (11.4-16.0); Lymphocytes # (A) 1.7 k/uL (1.0-4.8); Lymphocytes % (A) 21 %; MCH 30.6 pg (25.0-35.0); MCHC 31.5 g/dL (31.0-37.0); MCV 97.1 fL (80.0-100.0); Mean Platelet Volume 8.9; Monocytes # (A) 0.5 k/uL (0-1.0); Monocytes % (A) 6 %; Neutrophils # (A) 5.9 k/uL (1.3-7.7); Neutrophils % (A) 71 %; Platelet Count 293 k/uL (150-450); RBC 4.09 m/uL (3.80-5.40); RDW 14.8 % (11.5-15.5); WBC 8.4 k/uL (3.8-10.6)
[2018-04-24 15:22] VITALS: BP 118/65
== END 2018-04-24 15:18 | disposition home or self-care (01) ==
LOC: EC 10:55
DX: N12 Tubulo-interstitial nephritis, not specified as acute or chronic (principal); N39.0 Urinary tract infection, site not specified; J44.9 Chronic obstructive pulmonary disease, unspecified; K21.9 Gastro-esophageal reflux disease without esophagitis; I10 Essential (primary) hypertension; E07.9 Disorder of thyroid, unspecified; F32.9 Major depressive disorder, single episode, unspecified; F43.10 Post-traumatic stress disorder, unspecified; F41.9 Anxiety disorder, unspecified; Z85.828 Personal history of other malignant neoplasm of skin; Z86.14 Personal history of Methicillin resistant Staphylococcus aureus infection; Z85.3 Personal history of malignant neoplasm of breast; Z79.51 Long term (current) use of inhaled steroids; Z79.82 Long term (current) use of aspirin; Z79.899 Other long term (current) drug therapy; Z88.5 Allergy status to narcotic agent; Z88.1 Allergy status to other antibiotic agents; Z88.6 Allergy status to analgesic agent; Z88.8 Allergy status to other drugs, medicaments and biological substances; Z91.030 Bee allergy status; Z91.018 Allergy to other foods; Z90.49 Acquired absence of other specified parts of digestive tract
CPT/HCPCS: 36415; 80053; 83605; 85025; 81001; 87040; 87086; 99284; 96365; 96361; J0696

== ENCOUNTER 2018-05-15 12:01 | Emergency (ER) | payer MEDICARE, OTHER ==
[2018-05-15 12:10] VITALS: RESP 18
[2018-05-15] MEDS ORDERED: HYDROmorphone 1 MG/ML 1 ML SYRINGE IM STA (12:27)
--- NOTE | 2018-05-15 12:30 | ED ---
Fall HPI - General Chief Complaint: Fall Stated Complaint: Fall, Left shoulder pain Time Seen by Provider: 05/15/18 12:11 Source: patient, EMS, RN notes reviewed, old records reviewed Mode of arrival: EMS - History of Present Illness Initial Comments: Patient is a 67-year-old female with a history of asthma COPD hypertension, breast cancer presents today after a fall. Patient reports that last night she tripped over the tree stand and fell on her left shoulder. Patient reports that she's had multiple surgeries on her left shoulder and wrist. Patient states that she had no loss conscious. Also complains of some lower back pain related to her fall. She denies any saddle anesthesias. Patient states this occurred around midnight last night. She took [place] at that time. Patient states that she follows with Dr. Plunkett with [facility] for orthopedic injuries. Patient states that she was having pain with any range of motion such she decided to call EMS and was transferred here at noon today. - Related Data Home Medications Medication Instructions Recorded Confirmed Aspirin EC [Ecotrin Low Dose] 81 mg PO DAILY 04/09/16 04/24/18 HYDROcodone/APAP 10-325MG [[place] 1 tab PO TID PRN 04/09/16 04/24/18 10-325] Pantoprazole Sodium [Protonix] 40 mg PO BID 04/09/16 04/24/18 EPINEPHrine [Epipen 2-River] 0.3 mg IM ONCE PRN 11/16/16 04/24/18 Fluticasone Nasal [place] [Flonase 1 spray EA NOSTRIL BID 11/16/16 04/24/18 Nasal [place]] Loratadine [Claritin] 10 mg PO DAILY 11/16/16 04/24/18 Methenamine Hippurate [Hiprex] 1 gm PO BID 11/16/16 04/24/18 Montelukast [Singulair] 10 mg PO HS 11/16/16 04/24/18 Nitroglycerin Sl Tabs [Nitrostat] 0.4 mg SUBLINGUAL Q5M PRN 11/16/16 04/24/18 Fluticasone Propionate [Flovent 1 puff INHALATION RT-BID 11/24/16 04/24/18 Diskus] Hydrochlorothiazide [Hydrodiuril] 12.5 mg PO DAILY 12/13/16 04/24/18 Sucralfate [Carafate] 1 gm PO ACHS 12/13/16 04/24/18 Ondansetron [Zofran] 4 mg PO Q4H PRN 12/21/16 04/24/18 valACYclovir [Valtrex] 500 mg PO DAILY 12/21/16 04/24/18 Diazepam [Valium] 5 mg PO BID 09/16/17 04/24/18 Losartan Potassium 50 mg PO DAILY 09/16/17 04/24/18 Metoprolol/Hydrochlorothiazide 1 tab PO BID 09/16/17 04/24/18 [Lopressor Hct 50-25 mg Tab] Olopatadine HCl [Pataday] 1 drop BOTH EYES DAILY PRN 09/16/17 04/24/18 DULoxetine HCL [Cymbalta] 60 mg PO BID 04/24/18 04/24/18 Levothyroxine Sodium [Synthroid] 88 mcg PO DAILY 04/24/18 04/24/18 Paliperidone [Invega] 3 mg PO DAILY 04/24/18 04/24/18 Topiramate [Topamax] 25 mg PO BID 04/24/18 04/24/18 Previous Rx's Medication Instructions Recorded Cephalexin [Keflex] 500 mg PO Q6H 14 Days cap 04/24/18 Allergies Allergy/AdvReac Type Severity Reaction Status Date / Time carisoprodol [From Soma] Allergy Unknown Verified 05/15/18 12:11 chlorpromazine Allergy Unknown Verified 05/15/18 12:11 [From Thorazine] ciprofloxacin [From Cipro] Allergy Unknown Verified 05/15/18 12:11 clonazepam [From Klonopin] Allergy Unknown Verified 05/15/18 12:11 cyclobenzaprine Allergy Unknown Verified 05/15/18 12:11 [From Flexeril] metoclopramide [From Reglan] Allergy Anaphylaxis Verified 05/15/18 12:11 metronidazole [From Flagyl] Allergy Anaphylaxis Verified 05/15/18 12:11 morphine Allergy Rash/Hives Verified 05/15/18 12:11 naproxen Allergy Unknown Verified 05/15/18 12:11 papaya Allergy Rash/Hives Verified 05/15/18 12:11 prednisone Allergy Anaphylaxis Verified 05/15/18 12:11 prochlorperazine Allergy Anaphylaxis Verified 05/15/18 12:11 [From Compazine] venom-honey bee Allergy Anaphylaxis Verified 05/15/18 12:11 [bee venom (honey bee)] ketorolac [From Toradol] AdvReac Severe Abdominal Verified 05/15/18 12:11 Pain baclofen AdvReac Twitching Verified 05/15/18 12:11 ibuprofen [From Motrin] AdvReac Abdominal Verified 05/15/18 12:11 Pain meperidine [From Demerol] AdvReac Rapid Verified 05/15/18 12:11 Heart Rate Phenothiazines AdvReac Altered Verified 05/15/18 12:11 Mental Status Review of Systems ROS Statement: Those systems with pertinent positive or pertinent negative responses have been documented in the HPI. ROS Other: All systems not noted in ROS Statement are negative. Past Medical History Past Medical History: Asthma, Cancer, COPD, GERD/Reflux, Hypertension, Pneumonia , Thyroid Disorder Additional Past Medical History / Comment(s): shingles, RT BREAST LUMPECTOMY/ CANCER, THYROID REMOVE, CATARACTS, BRONCHITIS, MONO TEENAGER, LITE CASE OF POLIO AGE 8, MELANOMA SKIN CANCER REMOVED, History of Any Multi-Drug Resistant Organisms: MRSA Date of last positivie culture/infection: 2009 MDRO Source:: LEFT ULNAR BONE Past Surgical History: Appendectomy, Back Surgery, Cholecystectomy, Orthopedic Surgery Additional Past Surgical History / Comment(s): EYE SX FOR LAZY EYE, SX ON TEAR DUCTS, BACK SURGERY MICRO DISC, LT WRIST BROKEN 9 GALLO HAD 13 Surgeries TO CORRECT, left shoulder and humorous shattered from a fall with 2 surgeries to correct, LAPROSCOPIES- BENIGN TUNOR SIZE OF GRAPFRUIT REMOVED AGE 11 OR 1, RT BREAST BX/LUMPECTOMY,LT PINK FINGER SX TO STRAIGHTEN.MELANOMA SKIN CANCER REMOVED. Past Anesthesia/Blood Transfusion Reactions: No Reported Reaction Additional Past Anesthesia/Blood Transfusion Reaction / Comment(s): CLAUSTERPHOBIA Past Psychological History: Anxiety, Depression, PTSD Smoking Status: Never smoker Past Alcohol Use History: Occasional Past Drug Use History: None Reported - Past Family History Mother Family Medical History: Asthma Additional Family Medical History / Comment(s): ETOH/SMOKER Father Family Medical History: Cancer, Liver Disease Additional Family Medical History / Comment(s): ESOPHOGEAL CANCER, ETOH General Exam - General Exam Comments Initial Comments: 67-year-old female, alert and oriented. Limitations: no limitations General appearance: alert, in no apparent distress Head exam: Present: atraumatic, normocephalic, normal inspection Eye exam: Present: normal appearance, PERRL, EOMI. Absent: scleral icterus, conjunctival injection, periorbital swelling ENT exam: Present: normal exam, mucous membranes moist Neck exam: Present: normal inspection. Absent: tenderness, meningismus, lymphadenopathy Respiratory exam: Present: normal lung sounds bilaterally. Absent: respiratory distress, wheezes, rales, rhonchi, stridor Cardiovascular Exam: Present: regular rate, normal rhythm, normal heart sounds. Absent: systolic murmur, diastolic murmur, rubs, gallop, clicks GI/Abdominal exam: Present: soft, normal bowel sounds. Absent: distended, tenderness, guarding, rebound, rigid Extremities exam: Present: normal inspection, full ROM, normal capillary refill. Absent: tenderness, pedal edema, joint swelling, calf tenderness Left Shoulder Exam: Present: full ROM, tenderness, other (Patient is in a sling). Absent: normal inspection Upper Arm exam: Present: normal inspection, full ROM Elbow exam: Present: normal inspection, full ROM Forearm Wrist exam: Present: normal inspection, full ROM Hand Wrist exam: Present: normal inspection Back exam: Present: normal inspection Neurological exam: Present: alert, oriented X3, CN II-XII intact Psychiatric exam: Present: normal affect, normal mood Skin exam: Present: warm, dry, intact, normal color. Absent: rash Course Vital Signs 05/15/18 05/15/18 12:04 14:10 Temperature 98.7 F 98.2 F Pulse Rate 56 L 77 Respiratory 18 18 Rate Blood Pressure 122/58 132/70 O2 Sat by Pulse 100 98 Oximetry Medical Decision Making - Medical Decision Making Patient is a 67-year-old female who presents emergency Department today with complaints of left shoulder pain after a fall last night. She has emergency Department a sling. Patient has significant tenderness on palpation over the shoulder. She's had multiple surgeries on her wrist and arm. Patient has normal pulses normal sensation distally. X-ray of the left shoulder was completed and negative for fracture or dislocation. Discussed likely rotator cuff injury. She also states that she did have some lower back pain related to her fall. X-ray of her lumbar spine was negative for any acute process. She's been ambulating without difficulty. She is given 1 dose of pain medicine. Patient requests further pain menses discharged home. Discussed she can take her at home. Medication which she does received [place] at believe. Patient also will be advised to take Motrin Tylenol. Her questions answered return parameters were discussed. - Radiology Data Radiology results: report reviewed Nausea fracture dislocation seen and lumbar spine. Shoulder x-ray shows no acute fracture dislocation. No significant change from prior. Disposition Clinical Impression: Injury of left rotator cuff, Fall Disposition: HOME SELF-CARE Condition: Good Instructions: Rotator Cuff Injury (ED), Fall Prevention for Older Adults (ED) Additional Instructions: Patient has a follow-up with your primary care provider. Continue to use pain medicine as previously prescribed. Patient should have following up with your orthopedic as well. Return to emergency department if any alarming signs or symptoms occur. Is patient prescribed a controlled substance at d/c from ED?: No Referrals: Julito Pina MD [Primary Care Provider] - 1-2 days Time of Disposition: 13:45
--- NOTE | 2018-05-15 13:07 | XR ---
EXAMINATION TYPE: XR shoulder complete LT DATE OF EXAM: 05/15/2018 CLINICAL HISTORY: Left shoulder pain after fall injury today. TECHNIQUE: Three views of the left shoulder are obtained. COMPARISON: Left shoulder x-ray November 25, 2016. FINDINGS: There is no acute fracture/dislocation evident in the left shoulder. Old healed impaction fracture proximal metaphysis left shoulder is redemonstrated. Moderate narrowing acromioclavicular bharti int is again seen. The visualized ribs redemonstrated old fracture posterior left seventh rib. IMPRESSION: There is no acute fracture or dislocation in the left shoulder. No significant change fr om prior study.
--- NOTE | 2018-05-15 13:08 | XR ---
EXAMINATION TYPE: XR lumbar spine 2 or 3V DATE OF EXAM: 05/15/2018 CLINICAL HISTORY: Low back pain since falling today. TECHNIQUE: Frontal and lateral images of the lumbar spine are obtained. COMPARISON: Lumbar spine x-ray October 02, 2017 FINDINGS: There are 5 lumbar type vertebral bodies redemonstrated. The lumbar spine shows slight de xtro convex scoliotic curvature centered L3 level without evidence of acute fracture or dislocation. Vertebral body heights are within normal limits. Moderate to advanced disc space narrowing L5-S1 leve l is redemonstrated. There is facet arthropathy in the lower lumbar spine. Cholecystectomy clips in the overlying soft tissue are redemonstrated. IMPRESSION: No acute fracture or dislocation is seen in the lumbar spine.
[2018-05-15] MEDS ORDERED: KETOROLAC 30 MG/ML 1 ML VIAL IM STA (13:57)
[2018-05-15 14:15] VITALS: BP 132/70; PULSE 77; TEMP 98.2
== END 2018-05-15 14:10 | disposition home or self-care (01) ==
LOC: EC 12:01
DX: S46.002A Unspecified injury of muscle(s) and tendon(s) of the rotator cuff of left shoulder, initial encounter (principal); M54.5 Low back pain; J44.9 Chronic obstructive pulmonary disease, unspecified; K21.9 Gastro-esophageal reflux disease without esophagitis; I10 Essential (primary) hypertension; E07.9 Disorder of thyroid, unspecified; F32.9 Major depressive disorder, single episode, unspecified; F43.10 Post-traumatic stress disorder, unspecified; F41.9 Anxiety disorder, unspecified; Z85.3 Personal history of malignant neoplasm of breast; Z86.14 Personal history of Methicillin resistant Staphylococcus aureus infection; Z85.820 Personal history of malignant melanoma of skin; Z79.51 Long term (current) use of inhaled steroids; Z79.82 Long term (current) use of aspirin; Z79.899 Other long term (current) drug therapy; Z91.030 Bee allergy status; Z88.6 Allergy status to analgesic agent; Z91.018 Allergy to other foods; Z88.1 Allergy status to other antibiotic agents; Z88.8 Allergy status to other drugs, medicaments and biological substances; Z88.5 Allergy status to narcotic agent; W01.0XXA Fall on same level from slipping, tripping and stumbling without subsequent striking against object, initial encounter; Y92.009 Unspecified place in unspecified non-institutional (private) residence as the place of occurrence of the external cause
CPT/HCPCS: 72100; 73030; 99284; 96372 ×2; J1885; J1170

== ENCOUNTER 2018-06-18 14:24 | Emergency (ER) | payer MEDICARE, OTHER ==
[2018-06-18 14:33] VITALS: RESP 18; TEMP 98.3
[2018-06-18] MEDS ORDERED: DIPH,PERTUS(ACELL)TETVAC-LF 0.5 ML VIAL IM ONE (14:36)
--- NOTE | 2018-06-18 14:51 | ED ---
General Adult HPI - General Chief complaint: Wound/Laceration Stated complaint: Lip lac Time Seen by Provider: 06/18/18 14:36 Source: patient, RN notes reviewed, old records reviewed Mode of arrival: ambulatory Limitations: no limitations - History of Present Illness Initial comments: 68-year-old female patient with past medical history of bipolar disorder, cervical disc disease, presents to ED after suffering a mechanical fall yesterday. Patient reports that she was walking her dog when she slipped on ice and fell forward. Patient partially caught herself however, she suffered a small abrasion to her right lower lip. Patient denies any recent trauma to head or neck. Patient denies any loss of consciousness. Patient not on any blood thinners. Patient primary complaint today is abrasion to lip, wants to know if she needs stitches. Pt additionally wants to ensure that she has no fractures of L shoulder, pt does not have increased pain but reportedly suffered a rotator cuff injury. Pt additionally has some general mandibular pain , worse on right tmj. Pt denies all other complaints. Pt denies headache, changes in vision, loss of consciousness, neck pain. Systemic: Pt denies fatigue, myalgia, fever/chills, rash. Pt denies weakness, night sweats, weight loss. Neuro: Pt denies headache, visual disturbances, syncope or pre-syncope. HEENT: Pt denies ocular discharge or irritation, otalgia, rhinorrhea, pharyngitis or notable lymphadenopathy. Cardiopulmonary: Pt denies chest pain, SOB, heart palpitations, dyspnea on exertion. Abdominal/GI: Pt denies abdominal pain, n/v/d. : Pt denies dysuria, burning w/ urination, frequency/urgency. Denies new onset urinary or bowel incontinence. MSK: Pt denies myalgia, loss of strength or function in extremities. Neuro: Pt denies new onset weakness, paresthesias. - Related Data Home Medications Medication Instructions Recorded Confirmed Aspirin EC [Ecotrin Low Dose] 81 mg PO DAILY 04/09/16 04/24/18 HYDROcodone/APAP 10-325MG [[place] 1 tab PO TID PRN 04/09/16 04/24/18 10-325] Pantoprazole Sodium [Protonix] 40 mg PO BID 04/09/16 04/24/18 EPINEPHrine [Epipen 2-River] 0.3 mg IM ONCE PRN 11/16/16 04/24/18 Fluticasone Nasal [place] [Flonase 1 spray EA NOSTRIL BID 11/16/16 04/24/18 Nasal [place]] Loratadine [Claritin] 10 mg PO DAILY 11/16/16 04/24/18 Methenamine Hippurate [Hiprex] 1 gm PO BID 11/16/16 04/24/18 Montelukast [Singulair] 10 mg PO HS 11/16/16 04/24/18 Nitroglycerin Sl Tabs [Nitrostat] 0.4 mg SUBLINGUAL Q5M PRN 11/16/16 04/24/18 Fluticasone Propionate [Flovent 1 puff INHALATION RT-BID 11/24/16 04/24/18 Diskus] Hydrochlorothiazide [Hydrodiuril] 12.5 mg PO DAILY 12/13/16 04/24/18 Sucralfate [Carafate] 1 gm PO ACHS 12/13/16 04/24/18 Ondansetron [Zofran] 4 mg PO Q4H PRN 12/21/16 04/24/18 valACYclovir [Valtrex] 500 mg PO DAILY 12/21/16 04/24/18 Diazepam [Valium] 5 mg PO BID 09/16/17 04/24/18 Losartan Potassium 50 mg PO DAILY 09/16/17 04/24/18 Metoprolol/Hydrochlorothiazide 1 tab PO BID 09/16/17 04/24/18 [Lopressor Hct 50-25 mg Tab] Olopatadine HCl [Pataday] 1 drop BOTH EYES DAILY PRN 09/16/17 04/24/18 DULoxetine HCL [Cymbalta] 60 mg PO BID 04/24/18 04/24/18 Levothyroxine Sodium [Synthroid] 88 mcg PO DAILY 04/24/18 04/24/18 Paliperidone [Invega] 3 mg PO DAILY 04/24/18 04/24/18 Topiramate [Topamax] 25 mg PO BID 04/24/18 04/24/18 Previous Rx's Medication Instructions Recorded Cephalexin [Keflex] 500 mg PO Q6H 14 Days cap 04/24/18 Allergies Allergy/AdvReac Type Severity Reaction Status Date / Time carisoprodol [From Soma] Allergy Unknown Verified 06/18/18 14:33 chlorpromazine Allergy Unknown Verified 06/18/18 14:33 [From Thorazine] ciprofloxacin [From Cipro] Allergy Unknown Verified 06/18/18 14:33 clonazepam [From Klonopin] Allergy Unknown Verified 06/18/18 14:33 cyclobenzaprine Allergy Unknown Verified 06/18/18 14:33 [From Flexeril] metoclopramide [From Reglan] Allergy Anaphylaxis Verified 06/18/18 14:33 metronidazole [From Flagyl] Allergy Anaphylaxis Verified 06/18/18 14:33 morphine Allergy Rash/Hives Verified 06/18/18 14:33 naproxen Allergy Unknown Verified 06/18/18 14:33 papaya Allergy Rash/Hives Verified 06/18/18 14:33 prednisone Allergy Anaphylaxis Verified 06/18/18 14:33 prochlorperazine Allergy Anaphylaxis Verified 06/18/18 14:33 [From Compazine] venom-honey bee Allergy Anaphylaxis Verified 06/18/18 14:33 [bee venom (honey bee)] ketorolac [From Toradol] AdvReac Severe Abdominal Verified 06/18/18 14:33 Pain baclofen AdvReac Twitching Verified 06/18/18 14:33 ibuprofen [From Motrin] AdvReac Abdominal Verified 06/18/18 14:33 Pain meperidine [From Demerol] AdvReac Rapid Verified 06/18/18 14:33 Heart Rate Phenothiazines AdvReac Altered Verified 06/18/18 14:33 Mental Status Review of Systems ROS Statement: Those systems with pertinent positive or pertinent negative responses have been documented in the HPI. ROS Other: All systems not noted in ROS Statement are negative. Past Medical History Past Medical History: Asthma, Cancer, COPD, GERD/Reflux, Hypertension, Pneumonia , Thyroid Disorder Additional Past Medical History / Comment(s): shingles, RT BREAST LUMPECTOMY/ CANCER, THYROID REMOVE, CATARACTS, BRONCHITIS, MONO TEENAGER, LITE CASE OF POLIO AGE 8, MELANOMA SKIN CANCER REMOVED, History of Any Multi-Drug Resistant Organisms: MRSA Date of last positivie culture/infection: 2009 MDRO Source:: LEFT ULNAR BONE Past Surgical History: Appendectomy, Back Surgery, Cholecystectomy, Orthopedic Surgery Additional Past Surgical History / Comment(s): EYE SX FOR LAZY EYE, SX ON TEAR DUCTS, BACK SURGERY MICRO DISC, LT WRIST BROKEN 9 GALLO HAD 13 Surgeries TO CORRECT, left shoulder and humorous shattered from a fall with 2 surgeries to correct, LAPROSCOPIES- BENIGN TUNOR SIZE OF GRAPFRUIT REMOVED AGE 11 OR 1, RT BREAST BX/LUMPECTOMY,LT PINK FINGER SX TO STRAIGHTEN.MELANOMA SKIN CANCER REMOVED. Past Anesthesia/Blood Transfusion Reactions: No Reported Reaction Additional Past Anesthesia/Blood Transfusion Reaction / Comment(s): CLAUSTERPHOBIA Past Psychological History: Anxiety, Depression, PTSD Smoking Status: Never smoker Past Alcohol Use History: Occasional Past Drug Use History: None Reported - Past Family History Mother Family Medical History: Asthma Additional Family Medical History / Comment(s): ETOH/SMOKER Father Family Medical History: Cancer, Liver Disease Additional Family Medical History / Comment(s): ESOPHOGEAL CANCER, ETOH General Exam - General Exam Comments Initial Comments: Constitutional: NAD, AOX3, Pt has pleasant affect. HEENT: NC/AT, trachea midline, neck supple, no lymphadenopathy. Posterior pharynx non erythematous, without exudates. External ears appear normal, without discharge. Mucous membranes moist. Eyes PERRLA, EOM intact. There is no scleral icterus. No pallor noted. Full active ROM of jaw, no tenderness to palpation. Cardiopulmonary: RRR, no murmurs, rubs or gallops, no JVD noted. Lungs CTAB in anterior and posterior avalos. No peripheral edema. Abdominal exam: Abdomen soft and non-distended. Abdomen non-tender to palpation in all 4 quadrants. Bowel sounds active in LLQ. No hepatosplenomegaly. No ecchymosis Neuro: CN II-XII intact. No nuchal rigidity. No focal deficit or facial droop. Pt has some midline cervical spinal tenderness, no thoracic or lumbar tenderness. satish MSK: Small abrasion to right lower lip, no open laceration. No posterior calf tenderness bilaterally, homans sign negative bilaterally. Posterior tibialis and radial pulse +2 bilaterally. Sensation intact in upper and lower extremities. Full active ROM in upper and lower extremities, 5/5 stregnth. Limitations: no limitations Course Vital Signs 06/18/18 06/18/18 14:26 19:46 Temperature 98.3 F Pulse Rate 91 66 Respiratory 18 18 Rate Blood Pressure 134/84 171/77 O2 Sat by Pulse 98 100 Oximetry Medical Decision Making - Medical Decision Making 68-year-old female patient with past medical history of bipolar disorder, cervical disc disease, presents to ED after suffering a mechanical fall yesterday. Patient reports that she was walking her dog when she slipped on ice and fell forward. Patient partially caught herself however, she suffered a small abrasion to her right lower lip. Patient denies any recent trauma to head or neck. Patient denies any loss of consciousness. Patient not on any blood thinners. Patient primary complaint today is abrasion to lip, wants to know if she needs stitches. Pt additionally wants to ensure that she has no fractures of L shoulder, pt does not have increased pain but reportedly suffered a rotator cuff injury.Pt additionally has some general mandibular pain , worse on right tmj. Pt VSS, afebrile. Physical exam displayed: CN II-XII intact. No nuchal rigidity. No focal deficit or facial droop. Small abrasion to right lower lip, no open laceration. No posterior calf tenderness bilaterally , homans sign negative bilaterally. Posterior tibialis and radial pulse +2 bilaterally. Sensation intact in upper and lower extremities. Full active ROM in upper and lower extremities, 5/5 stregnth. Pt did additionally have midline cervical tenderness, pt was placed in C collar until CT results. Patient does have history of cervical disease, states the pain is at baseline. CT of brain revealed atrophy with periventricular white matter ischemic Changes. Cervical spine displayed no acute osseous abnormality. Degenerative changes. Patient previously aware of these findings. Plain film of left shoulder displayed no acute process. Plain film of mandible displayed no acute process. Findings were explained patient length. Patient was understanding. Patient to follow up with primary care provider in 1-2 days for continued evaluation. Case discussed with Dr. Gonzalez. Pt tetanus updated. Disposition Clinical Impression: Fall Disposition: HOME SELF-CARE Condition: Stable Instructions (If sedation given, give patient instructions): Fall Prevention for Older Adults (ED) Additional Instructions: Patient to adhere to previously discussed treatment plan and will take medication(s) as directed. Patient to follow up with PCP in 1-2 days. Patient to return to ED if symptoms do not improve. Is patient prescribed a controlled substance at d/c from ED?: No Referrals: Julito Pina MD [Primary Care Provider] - 1-2 days Time of Disposition: 19:39
--- NOTE | 2018-06-18 16:32 | CT ---
EXAMINATION TYPE: CT brain winnie wo con DATE OF EXAM: 06/18/2018 COMPARISON: 03/14/2016 HISTORY: Fall injury, Lip laceration CT DLP: 1284.6 mGycm, Automated exposure control for dose reduction was used. CONTRAST: Patient injected with 0 mL of Isovue 300. CT of the brain is performed utilizing 3 mm thick sections through the posterior fossa and 3 mm thick sections through the remaining calvarium. Study is performed within 24 hours of arrival to the hospital. No abnormal hyperdensity is present to suggest an acute intracranial hemorrhage. No mass lesion is evident. No acute infarcts are evident. Mild periventricular white matter hypodensity is present, likely on t he basis of chronic white matter ischemic change. Ventricles and sulci are appropriate for the patient age. Paranasal sinuses and mastoid air cells within the [id number] are clear. IMPRESSIONS: 1. Atrophy with periventricular white matter ischemic type changes. CT cervical spine. COMPARISON: 03/14/2016 CT of the cervical spine is performed in the axial plane at 2 mm thick sections. Reconstructed image s in the coronal, and sagittal plane are reviewed on the computer. No acute fractures are evident. Vertebral body alignment is normal. There is loss of disc height C4-5 C5-6 C6-7. Vertebral body heights are preserved. No spinal canal stenosis is evident. Uncovertebral joint hypertrophy at C6-7 is contributing to severe bilateral foraminal stenosis. Moder ate to severe foraminal stenosis is present C5-6. Mild foraminal stenosis due to uncovertebral joint hypertrophy is present C4-5. Moderate right foraminal stenosis is present C3-4. IMPRESSIONS: 1. Degenerative disc changes. 2. Uncovertebral joint atrophy and shooting to moderate to severe foraminal stenosis. 3. No acute osseous abnormality.
[2018-06-18] MEDS ORDERED: KETOROLAC 60 MG/2 ML VIAL IM STA (16:54)
--- NOTE | 2018-06-18 19:21 | XR ---
EXAMINATION TYPE: XR shoulder complete LT DATE OF EXAM: 06/18/2018 COMPARISON: 05/15/2018 HISTORY: Pain TECHNIQUE: Shoulder examined in 3 views FINDINGS: The humeral head articulates with the glenoid. The acromio-clavicular junction is normal. No acute fractures or dislocations are evident. A follow up study can be performed 7-10 days from acute trauma for continued pain. IMPRESSION: 1. No acute fracture evident. Findings are stable at the neck of the humerus.
--- NOTE | 2018-06-18 19:22 | XR ---
EXAMINATION TYPE: XR mandible complete DATE OF EXAM: 06/18/2018 COMPARISON: None HISTORY: Pain laceration TECHNIQUE: 5 view and lateral FINDINGS: No acute fractures are evident. Temporomandibular joints are normal. Angle of the jaw appea rs normal. No dislocation is evident. Maxillary spine is intact. IMPRESSION: 1. Normal 5 view mandible.
[2018-06-18 19:47] VITALS: BP 171/77; PULSE 66
== END 2018-06-18 19:47 | disposition home or self-care (01) ==
LOC: EC 14:24
DX: S00.511A Abrasion of lip, initial encounter (principal); G31.9 Degenerative disease of nervous system, unspecified; R90.82 White matter disease, unspecified; I67.82 Cerebral ischemia; M47.812 Spondylosis without myelopathy or radiculopathy, cervical region; S46.002A Unspecified injury of muscle(s) and tendon(s) of the rotator cuff of left shoulder, initial encounter; R68.84 Jaw pain; J44.9 Chronic obstructive pulmonary disease, unspecified; I10 Essential (primary) hypertension; K21.9 Gastro-esophageal reflux disease without esophagitis; F31.9 Bipolar disorder, unspecified; F41.9 Anxiety disorder, unspecified; Z88.1 Allergy status to other antibiotic agents; Z88.5 Allergy status to narcotic agent; Z88.6 Allergy status to analgesic agent; Z88.8 Allergy status to other drugs, medicaments and biological substances; Z91.018 Allergy to other foods; Z91.030 Bee allergy status; Z79.51 Long term (current) use of inhaled steroids; Z79.82 Long term (current) use of aspirin; Z79.890 Hormone replacement therapy; Z79.899 Other long term (current) drug therapy; Z86.14 Personal history of Methicillin resistant Staphylococcus aureus infection; E89.0 Postprocedural hypothyroidism; Z87.01 Personal history of pneumonia (recurrent); Z86.19 Personal history of other infectious and parasitic diseases; Z85.3 Personal history of malignant neoplasm of breast; Z85.820 Personal history of malignant melanoma of skin; Z98.890 Other specified postprocedural states; Z23 Encounter for immunization; W00.0XXA Fall on same level due to ice and snow, initial encounter; Y93.K1 Activity, walking an animal
CPT/HCPCS: 70110; 73030; 72125; 70450; 90715; 99284; 96372; 90471; J1885

== ENCOUNTER 2018-08-11 10:07 | Emergency (ER) | payer MEDICARE, OTHER ==
[2018-08-11] MEDS ORDERED: HYDROmorphone 0.5 MG/0.5 ML SYRINGE IM STA (10:41)
--- NOTE | 2018-08-11 10:45 | ED ---
General Adult HPI - General Chief complaint: Fall Stated complaint: Fall Time Seen by Provider: 08/11/18 10:10 Source: patient, EMS, RN notes reviewed Mode of arrival: EMS Limitations: no limitations - History of Present Illness Initial comments: This is a 5-year-old female presents emergency department stating that she tripped over a cord this morning and landed on her left knee with there is a superficial abrasion and landed on her left shoulder which is causing her some pain laterally. Patient still is full range of motion of the knee and shoulder. Patient states she also hurt her right hip yesterday when she got out of her car in slipped and fell. Patient states she ambulated after that. Patient denies hitting her head or having any neck pain. Patient denies any numbness or weakness. Patient states she does have a tetanus shot up-to-date. Patient denies any other injury at this time. - Related Data Home Medications Medication Instructions Recorded Confirmed Aspirin EC [Ecotrin Low Dose] 81 mg PO DAILY 04/09/16 08/11/18 HYDROcodone/APAP 10-325MG [[place] 1 tab PO TID PRN 04/09/16 08/11/18 10-325] Pantoprazole Sodium [Protonix] 40 mg PO BID 04/09/16 08/11/18 EPINEPHrine [Epipen 2-River] 0.3 mg IM ONCE PRN 11/16/16 08/11/18 Fluticasone Nasal [place] [Flonase 1 spray EA NOSTRIL AC-BID 11/16/16 08/11/18 Nasal [place]] Loratadine [Claritin] 10 mg PO DAILY 11/16/16 08/11/18 Methenamine Hippurate [Hiprex] 1 gm PO BID 11/16/16 08/11/18 Montelukast [Singulair] 10 mg PO HS 11/16/16 08/11/18 Nitroglycerin Sl Tabs [Nitrostat] 0.4 mg SUBLINGUAL Q5M PRN 11/16/16 08/11/18 Sucralfate [Carafate] 1 gm PO ACHS 12/13/16 08/11/18 Ondansetron [Zofran] 4 mg PO TID PRN 12/21/16 08/11/18 Diazepam [Valium] 5 mg PO BID-W/MEALS 09/16/17 08/11/18 Losartan Potassium 50 mg PO DAILY 09/16/17 08/11/18 DULoxetine HCL [Cymbalta] 60 mg PO BID 04/24/18 08/11/18 Levothyroxine Sodium [Synthroid] 88 mcg PO DAILY 04/24/18 08/11/18 Albuterol Sulfate [Proair Hfa] 2 puff INHALATION RT-Q4H 08/11/18 08/11/18 Banophen 50 mg PO HS 08/11/18 08/11/18 Cetirizine HCl [Zyrtec] 10 mg PO DAILY 08/11/18 08/11/18 Cyanocobalamin (Vitamin B-12) 1,000 mcg PO QMONTH 08/11/18 08/11/18 [Vitamin B-12] Ergocalciferol [Vitamin D2] 50,000 unit PO Q7D 08/11/18 08/11/18 Olopatadine HCl [Pataday] 2 drop BOTH EYES BID PRN 08/11/18 08/11/18 Paliperidone [Invega] 1.5 mg PO DAILY 08/11/18 08/11/18 Topiramate [Topamax] 50 mg PO BID 08/11/18 08/11/18 Triamterene/Hydrochlorothiazid 1 cap PO DAILY 08/11/18 08/11/18 [Dyazide 37.5-25 Capsule] Vortioxetine Hydrobromide 10 mg PO DAILY 08/11/18 08/11/18 [Trintellix] buPROPion HCL [Wellbutrin SR] 200 mg PO BID 08/11/18 08/11/18 valACYclovir [Valtrex] 500 mg PO DAILY 08/11/18 08/11/18 Allergies Allergy/AdvReac Type Severity Reaction Status Date / Time carisoprodol [From Soma] Allergy Unknown Verified 08/11/18 10:42 chlorpromazine Allergy Unknown Verified 08/11/18 10:42 [From Thorazine] ciprofloxacin [From Cipro] Allergy Unknown Verified 08/11/18 10:42 clonazepam [From Klonopin] Allergy Unknown Verified 08/11/18 10:42 cyclobenzaprine Allergy Unknown Verified 08/11/18 10:42 [From Flexeril] metoclopramide [From Reglan] Allergy Anaphylaxis Verified 08/11/18 10:42 metronidazole [From Flagyl] Allergy Anaphylaxis Verified 08/11/18 10:42 morphine Allergy Rash/Hives Verified 08/11/18 10:42 naproxen Allergy Unknown Verified 08/11/18 10:42 papaya Allergy Rash/Hives Verified 08/11/18 10:42 prednisone Allergy Anaphylaxis Verified 08/11/18 10:42 prochlorperazine Allergy Anaphylaxis Verified 08/11/18 10:42 [From Compazine] venom-honey bee Allergy Anaphylaxis Verified 08/11/18 10:42 [bee venom (honey bee)] ketorolac [From Toradol] AdvReac Severe Abdominal Verified 08/11/18 10:42 Pain baclofen AdvReac Twitching Verified 08/11/18 10:42 ibuprofen [From Motrin] AdvReac Abdominal Verified 08/11/18 10:42 Pain meperidine [From Demerol] AdvReac Rapid Verified 08/11/18 10:42 Heart Rate Phenothiazines AdvReac Altered Verified 08/11/18 10:42 Mental Status Review of Systems ROS Statement: Those systems with pertinent positive or pertinent negative responses have been documented in the HPI. ROS Other: All systems not noted in ROS Statement are negative. Past Medical History Past Medical History: Asthma, Cancer, COPD, GERD/Reflux, Hypertension, Pneumonia, Thyroid Disorder Additional Past Medical History / Comment(s): shingles, RT BREAST LUMPECTOMY/CANCER, THYROID REMOVE, CATARACTS, BRONCHITIS, MONO TEENAGER, LITE CASE OF POLIO AGE 8, MELANOMA SKIN CANCER REMOVED, History of Any Multi-Drug Resistant Organisms: MRSA Date of last positivie culture/infection: 2009 MDRO Source:: LEFT ULNAR BONE Past Surgical History: Appendectomy, Back Surgery, Cholecystectomy, Orthopedic Surgery Additional Past Surgical History / Comment(s): EYE SX FOR LAZY EYE, SX ON TEAR DUCTS, BACK SURGERY MICRO DISC, LT WRIST BROKEN 7 GALLO HAD 13 Surgeries TO CORRECT, left shoulder and humorous shattered from a fall with 2 surgeries to correct, LAPROSCOPIES- BENIGN TUNOR SIZE OF GRAPFRUIT REMOVED AGE 11 OR 1, RT BREAST BX/LUMPECTOMY,LT PINK FINGER SX TO STRAIGHTEN.MELANOMA SKIN CANCER REMOVED. Past Anesthesia/Blood Transfusion Reactions: No Reported Reaction Additional Past Anesthesia/Blood Transfusion Reaction / Comment(s): CLAUSTERPHOBIA Past Psychological History: Anxiety, Depression, PTSD Smoking Status: Never smoker Past Alcohol Use History: Occasional Past Drug Use History: None Reported - Past Family History Mother Family Medical History: Asthma Additional Family Medical History / Comment(s): ETOH/SMOKER Father Family Medical History: Cancer, Liver Disease Additional Family Medical History / Comment(s): ESOPHOGEAL CANCER, ETOH General Exam - General Exam Comments Initial Comments: GENERAL: Patient is well-developed and well-nourished. Patient is nontoxic and well- hydrated and is in mild distress. ENT: Neck is soft and supple. No significant lymphadenopathy is noted. Oropharynx is clear. Moist mucous membranes. Neck has full range of motion without eliciting any pain. EYES: The sclera were anicteric and conjunctiva were pink and moist. Extraocular move ments were intact and pupils were equal round and reactive to light. Eyelids were unremarkable. PULMONARY: Unlabored respirations. Good breath sounds bilaterally. No audible rales rhonchi or wheezing was noted. CARDIOVASCULAR: There is a regular rate and rhythm without any murmurs gallops or rubs. ABDOMEN: Soft and nontender with normal bowel sounds. No palpable organomegaly was noted. There is no palpable pulsatile mass. SKIN: She has a superficial abrasion to the anterior aspect of the left knee measuring about 2 cm x 2 cm NEUROLOGIC: Patient is alert and oriented x3. Cranial nerves II through XII are grossly intact. Motor and sensory are also intact. Normal speech, volume and content. Symmetrical smile. MUSCULOSKELETAL: Normal extremities with adequate strength and full range of motion. Patient has some tenderness to lateral aspect of the left shoulder but she does have full range of motion of the shoulder. Patient has some right lateral hip pain but full range of motion. LYMPHATICS: No significant lymphadenopathy is noted PSYCHIATRIC: Normal psychiatric evaluation. Limitations: no limitations Course Vital Signs 08/11/18 10:09 Temperature 98 F Pulse Rate 63 Respiratory 18 Rate Blood Pressure 120/58 O2 Sat by Pulse 100 Oximetry Medical Decision Making - Medical Decision Making Shoulder x-ray shows no acute fracture. Knee x-ray shows no acute fracture. Hip x-ray shows no acute fracture. Disposition Clinical Impression: Fall, Abrasion, knee, Shoulder contusion, Contusion, hip Disposition: HOME SELF-CARE Condition: Good Instructions (If sedation given, give patient instructions): Fall Prevention for Older Adults (ED) Is patient prescribed a controlled substance at d/c from ED?: No Referrals: Julito Pina MD [Primary Care Provider] - 1-2 days Time of Disposition: 11:23
--- NOTE | 2018-08-11 11:12 | XR ---
EXAMINATION TYPE: XR Hip RT and AP Pelvis DATE OF EXAM: 08/11/2018 COMPARISON: Previous exam 10/02/2017 HISTORY: Trauma and pain TECHNIQUE: AP views of the pelvis obtained. Two views of the right hip are obtained. FINDINGS: There is no acute fracture/dislocation evident in the pelvis. The hip and sacroiliac join ts appear symmetric and unremarkable. The overlying soft tissue show bilateral injection granuloma. Two views of right hip show no acute fracture or dislocation. No change is seen in the proximal righ t femur. The overlying soft tissue is unremarkable. Osteoarthritic changes are stable. IMPRESSION: There is no acute fracture or dislocation in the pelvis or right hip.
--- NOTE | 2018-08-11 11:13 | XR ---
Left shoulder HISTORY: Trauma and pain 3 views of the left shoulder Old traumatic changes which are now healed again noted in the proximal left humerus. Arthropathy agai n noted at the acromioclavicular joint. Old posterior rib fracture seventh rib is stable and healed. Alignment and bone mineralization are stable. IMPRESSION: No acute fracture or dislocation is evident.
--- NOTE | 2018-08-11 11:14 | XR ---
Left knee HISTORY: Trauma and pain 3 views of the left knee on 4 images There is osteophytic change. Alignment and bone mineralization are maintained. Possible small joint e ffusion. IMPRESSION: No acute fracture or dislocation.
[2018-08-11] MEDS ORDERED: KETOROLAC 30 MG/ML 1 ML VIAL IM STA (11:26)
[2018-08-11 11:37] VITALS: BP 125/71; PULSE 73; RESP 16; TEMP 98.4
== END 2018-08-11 11:37 | disposition home or self-care (01) ==
LOC: EC 10:07
DX: S40.012A Contusion of left shoulder, initial encounter (principal); S70.01XA Contusion of right hip, initial encounter; S80.212A Abrasion, left knee, initial encounter; J44.9 Chronic obstructive pulmonary disease, unspecified; K21.9 Gastro-esophageal reflux disease without esophagitis; I10 Essential (primary) hypertension; E89.0 Postprocedural hypothyroidism; F32.9 Major depressive disorder, single episode, unspecified; F41.9 Anxiety disorder, unspecified; Z88.1 Allergy status to other antibiotic agents; Z88.5 Allergy status to narcotic agent; Z88.6 Allergy status to analgesic agent; Z88.8 Allergy status to other drugs, medicaments and biological substances; Z91.018 Allergy to other foods; Z91.030 Bee allergy status; Z79.51 Long term (current) use of inhaled steroids; Z79.82 Long term (current) use of aspirin; Z79.890 Hormone replacement therapy; Z79.899 Other long term (current) drug therapy; Z86.14 Personal history of Methicillin resistant Staphylococcus aureus infection; Z85.3 Personal history of malignant neoplasm of breast; Z85.820 Personal history of malignant melanoma of skin; Z87.01 Personal history of pneumonia (recurrent); Z86.19 Personal history of other infectious and parasitic diseases; Z98.890 Other specified postprocedural states; W01.0XXA Fall on same level from slipping, tripping and stumbling without subsequent striking against object, initial encounter; Y93.89 Activity, other specified; Y92.009 Unspecified place in unspecified non-institutional (private) residence as the place of occurrence of the external cause
CPT/HCPCS: 73030; 73502; 73562; 99284; 96372 ×2; J1885; J1170

== ENCOUNTER 2018-08-19 15:23 | Emergency (ER) | payer MEDICARE, OTHER ==
[2018-08-19] MEDS ORDERED: SODIUM CHLORIDE 0.9% 1,000 ML IV STA (16:10)
--- NOTE | 2018-08-19 16:50 | ED ---
General Adult HPI - General Chief complaint: Urogenital Stated complaint: Urogenital Time Seen by Provider: 08/19/18 15:39 Source: patient, RN notes reviewed, old records reviewed Mode of arrival: ambulatory Limitations: no limitations - History of Present Illness Initial comments: Patient is a 68-year-old female presents emergency department today with complaints of dysuria. Patient states that she's been having symptoms of UTI for the past few days. She states she was unable to get her PCP. Patient states she's had a history of urinary tract infections in the past. She denies any nausea or vomiting. She does complain of some back pain. - Related Data Home Medications Medication Instructions Recorded Confirmed Aspirin EC [Ecotrin Low Dose] 81 mg PO DAILY 04/09/16 08/11/18 HYDROcodone/APAP 10-325MG [[place] 1 tab PO TID PRN 04/09/16 08/11/18 10-325] Pantoprazole Sodium [Protonix] 40 mg PO BID 04/09/16 08/11/18 EPINEPHrine [Epipen 2-River] 0.3 mg IM ONCE PRN 11/16/16 08/11/18 Fluticasone Nasal [place] [Flonase 1 spray EA NOSTRIL AC-BID 11/16/16 08/11/18 Nasal [place]] Loratadine [Claritin] 10 mg PO DAILY 11/16/16 08/11/18 Methenamine Hippurate [Hiprex] 1 gm PO BID 11/16/16 08/11/18 Montelukast [Singulair] 10 mg PO HS 11/16/16 08/11/18 Nitroglycerin Sl Tabs [Nitrostat] 0.4 mg SUBLINGUAL Q5M PRN 11/16/16 08/11/18 Sucralfate [Carafate] 1 gm PO ACHS 12/13/16 08/11/18 Ondansetron [Zofran] 4 mg PO TID PRN 12/21/16 08/11/18 Diazepam [Valium] 5 mg PO BID-W/MEALS 09/16/17 08/11/18 Losartan Potassium 50 mg PO DAILY 09/16/17 08/11/18 DULoxetine HCL [Cymbalta] 60 mg PO BID 04/24/18 08/11/18 Levothyroxine Sodium [Synthroid] 88 mcg PO DAILY 04/24/18 08/11/18 Albuterol Sulfate [Proair Hfa] 2 puff INHALATION RT-Q4H 08/11/18 08/11/18 Banophen 50 mg PO HS 08/11/18 08/11/18 Cetirizine HCl [Zyrtec] 10 mg PO DAILY 08/11/18 08/11/18 Cyanocobalamin (Vitamin B-12) 1,000 mcg PO QMONTH 08/11/18 08/11/18 [Vitamin B-12] Ergocalciferol [Vitamin D2] 50,000 unit PO Q7D 08/11/18 08/11/18 Olopatadine HCl [Pataday] 2 drop BOTH EYES BID PRN 08/11/18 08/11/18 Paliperidone [Invega] 1.5 mg PO DAILY 08/11/18 08/11/18 Topiramate [Topamax] 50 mg PO BID 08/11/18 08/11/18 Triamterene/Hydrochlorothiazid 1 cap PO DAILY 08/11/18 08/11/18 [Dyazide 37.5-25 Capsule] Vortioxetine Hydrobromide 10 mg PO DAILY 08/11/18 08/11/18 [Trintellix] buPROPion HCL [Wellbutrin SR] 200 mg PO BID 08/11/18 08/11/18 valACYclovir [Valtrex] 500 mg PO DAILY 08/11/18 08/11/18 Previous Rx's Medication Instructions Recorded Cephalexin [Keflex] 500 mg PO Q8HR #30 cap 08/19/18 Phenazopyridine [Pyridium] 100 mg PO TID #9 tablet 08/19/18 Allergies Allergy/AdvReac Type Severity Reaction Status Date / Time carisoprodol [From Soma] Allergy Unknown Verified 08/19/18 15:33 chlorpromazine Allergy Unknown Verified 08/19/18 15:33 [From Thorazine] ciprofloxacin [From Cipro] Allergy Unknown Verified 08/19/18 15:33 clonazepam [From Klonopin] Allergy Unknown Verified 08/19/18 15:33 cyclobenzaprine Allergy Unknown Verified 08/19/18 15:33 [From Flexeril] metoclopramide [From Reglan] Allergy Anaphylaxis Verified 08/19/18 15:33 metronidazole [From Flagyl] Allergy Anaphylaxis Verified 08/19/18 15:33 morphine Allergy Rash/Hives Verified 08/19/18 15:33 naproxen Allergy Unknown Verified 08/19/18 15:33 papaya Allergy Rash/Hives Verified 08/19/18 15:33 prednisone Allergy Anaphylaxis Verified 08/19/18 15:33 prochlorperazine Allergy Anaphylaxis Verified 08/19/18 15:33 [From Compazine] venom-honey bee Allergy Anaphylaxis Verified 08/19/18 15:33 [bee venom (honey bee)] ketorolac [From Toradol] AdvReac Severe Abdominal Verified 08/19/18 15:33 Pain baclofen AdvReac Twitching Verified 08/19/18 15:33 ibuprofen [From Motrin] AdvReac Abdominal Verified 08/19/18 15:33 Pain meperidine [From Demerol] AdvReac Rapid Verified 08/19/18 15:33 Heart Rate Phenothiazines AdvReac Altered Verified 08/19/18 15:33 Mental Status Review of Systems ROS Statement: Those systems with pertinent positive or pertinent negative responses have been documented in the HPI. ROS Other: All systems not noted in ROS Statement are negative. Past Medical History Past Medical History: Asthma, Cancer, COPD, GERD/Reflux, Hypertension, Pneumonia, Thyroid Disorder Additional Past Medical History / Comment(s): shingles, RT BREAST LUMPECTOMY/CANCER, THYROID REMOVE, CATARACTS, BRONCHITIS, MONO TEENAGER, LITE CASE OF POLIO AGE 8, MELANOMA SKIN CANCER REMOVED, History of Any Multi-Drug Resistant Organisms: MRSA Date of last positivie culture/infection: 2009 MDRO Source:: LEFT ULNAR BONE Past Surgical History: Appendectomy, Back Surgery, Cholecystectomy, Orthopedic Surgery Additional Past Surgical History / Comment(s): EYE SX FOR LAZY EYE, SX ON TEAR DUCTS, BACK SURGERY MICRO DISC, LT WRIST BROKEN 7 GALLO HAD 13 Surgeries TO CORRECT, left shoulder and humorous shattered from a fall with 2 surgeries to correct, LAPROSCOPIES- BENIGN TUNOR SIZE OF GRAPFRUIT REMOVED AGE 11 OR 1, RT BREAST BX/LUMPECTOMY,LT PINK FINGER SX TO STRAIGHTEN.MELANOMA SKIN CANCER REMOVED. Past Anesthesia/Blood Transfusion Reactions: No Reported Reaction Additional Past Anesthesia/Blood Transfusion Reaction / Comment(s): CLAUSTERPHOBIA Past Psychological History: Anxiety, Depression, PTSD Smoking Status: Never smoker Past Alcohol Use History: Occasional Past Drug Use History: None Reported - Past Family History Mother Family Medical History: Asthma Additional Family Medical History / Comment(s): ETOH/SMOKER Father Family Medical History: Cancer, Liver Disease Additional Family Medical History / Comment(s): ESOPHOGEAL CANCER, ETOH General Exam - General Exam Comments Initial Comments: Pleasant 68-year-old female. Alert and oriented. No significant distress. Limitations: no limitations General appearance: alert, in no apparent distress Head exam: Present: atraumatic, normocephalic, normal inspection Eye exam: Present: normal appearance, PERRL, EOMI. Absent: scleral icterus, conjunctival injection, periorbital swelling ENT exam: Present: normal exam, mucous membranes moist Neck exam: Present: normal inspection. Absent: tenderness, meningismus, lymphadenopathy Respiratory exam: Present: normal lung sounds bilaterally. Absent: respiratory distress, wheezes, rales, rhonchi, stridor Cardiovascular Exam: Present: regular rate, normal rhythm, normal heart sounds. Absent: systolic murmur, diastolic murmur, rubs, gallop, clicks GI/Abdominal exam: Present: soft, normal bowel sounds. Absent: distended, tenderness, guarding, rebound, rigid Extremities exam: Present: normal inspection, full ROM, normal capillary refill. Absent: tenderness, pedal edema, joint swelling, calf tenderness Back exam: Present: normal inspection Neurological exam: Present: alert, oriented X3, CN II-XII intact Psychiatric exam: Present: normal affect, normal mood Skin exam: Present: warm, dry, intact, normal color. Absent: rash Course Vital Signs 08/19/18 08/19/18 15:29 18:12 Temperature 97.7 F 97.8 F Pulse Rate 63 78 Respiratory 18 16 Rate Blood Pressure 97/67 102/70 O2 Sat by Pulse 98 98 Oximetry Medical Decision Making - Medical Decision Making 5-year-old female presents for today with complaints of dysuria as well as back pain. She is given IV fluids, obtained. Laboratory show evidence of UTI. Patient was started on Keflex and Pyridium. Patient given dose of Rocephin immediately. Discussed appropriate follow-up with her PCP and urine culture pending. All questions answered. - Lab Data Result diagrams: 08/19/18 16:47 08/19/18 16:47 Lab Results 08/19/18 08/19/18 08/19/18 Range/Units 16:30 16:47 16:47 WBC 6.9 (3.8-10.6) k/uL RBC 3.72 L (3.80-5.40) m/uL Hgb 11.3 L (11.4-16.0) gm/dL Hct 37.0 (34.0-46.0) % MCV 99.3 (80.0-100.0) fL MCH 30.4 (25.0-35.0) pg MCHC 30.6 L (31.0-37.0) g/dL RDW 13.3 (11.5-15.5) % Plt Count 276 (150-450) k/uL Neutrophils % 68 % Lymphocytes % 20 % Monocytes % 5 % Eosinophils % 3 % Basophils % 1 % Neutrophils # 4.7 (1.3-7.7) k/uL Lymphocytes # 1.4 (1.0-4.8) k/uL Monocytes # 0.4 (0-1.0) k/uL Eosinophils # 0.2 (0-0.7) k/uL Basophils # 0.0 (0-0.2) k/uL PT (9.0-12.0) sec INR (<1.2) APTT (22.0-30.0) sec Sodium 138 (137-145) mmol/L Potassium 4.0 (3.5-5.1) mmol/L Chloride 105 (98-107) mmol/L Carbon Dioxide 25 (22-30) mmol/L Anion Gap 8 mmol/L BUN 24 H (7-17) mg/dL Creatinine 1.36 H (0.52-1.04) mg/dL Est GFR (CKD-EPI)AfAm 46 (>60 ml/min/1.73 sqM) Est GFR (CKD-EPI)NonAf 40 (>60 ml/min/1.73 sqM) Glucose 81 (74-99) mg/dL Calcium 9.5 (8.4-10.2) mg/dL Total Bilirubin 0.6 (0.2-1.3) mg/dL AST 28 (14-36) U/L ALT 36 (9-52) U/L Alkaline Phosphatase 101 (38-126) U/L Total Protein 7.0 (6.3-8.2) g/dL Albumin 4.4 (3.5-5.0) g/dL Amylase 60 (30-110) U/L Lipase 31 (23-300) U/L Urine Color Yellow Urine Appearance Clear (Clear) Urine pH 7.0 (5.0-8.0) Ur Specific [place] 1.013 (1.001-1.035) Urine Protein 1+ H (Negative) Urine Glucose (UA) Negative (Negative) Urine Ketones Negative (Negative) Urine Blood Small H (Negative) Urine Nitrite Negative (Negative) Urine Bilirubin Negative (Negative) Urine Urobilinogen <2.0 (<2.0) mg/dL Ur Leukocyte Esterase Moderate H (Negative) Urine RBC 34 H (0-5) /hpf Urine WBC 34 H (0-5) /hpf Ur Squamous Epith Cells 1 (0-4) /hpf Urine Bacteria Rare H (None) /hpf Urine Mucus Occasional H (None) /hpf 08/19/18 Range/Units 16:47 WBC (3.8-10.6) k/uL RBC (3.80-5.40) m/uL Hgb (11.4-16.0) gm/dL Hct (34.0-46.0) % MCV (80.0-100.0) fL MCH (25.0-35.0) pg MCHC (31.0-37.0) g/dL RDW (11.5-15.5) % Plt Count (150-450) k/uL Neutrophils % % Lymphocytes % % Monocytes % % Eosinophils % % Basophils % % Neutrophils # (1.3-7.7) k/uL Lymphocytes # (1.0-4.8) k/uL Monocytes # (0-1.0) k/uL Eosinophils # (0-0.7) k/uL Basophils # (0-0.2) k/uL PT 9.6 (9.0-12.0) sec INR 0.9 (<1.2) APTT 22.0 (22.0-30.0) sec Sodium (137-145) mmol/L Potassium (3.5-5.1) mmol/L Chloride (98-107) mmol/L Carbon Dioxide (22-30) mmol/L Anion Gap mmol/L BUN (7-17) mg/dL Creatinine (0.52-1.04) mg/dL Est GFR (CKD-EPI)AfAm (>60 ml/min/1.73 sqM) Est GFR (CKD-EPI)NonAf (>60 ml/min/1.73 sqM) Glucose (74-99) mg/dL Calcium (8.4-10.2) mg/dL Total Bilirubin (0.2-1.3) mg/dL AST (14-36) U/L ALT (9-52) U/L Alkaline Phosphatase (38-126) U/L Total Protein (6.3-8.2) g/dL Albumin (3.5-5.0) g/dL Amylase (30-110) U/L Lipase (23-300) U/L Urine Color Urine Appearance (Clear) Urine pH (5.0-8.0) Ur Specific [place] (1.001-1.035) Urine Protein (Negative) Urine Glucose (UA) (Negative) Urine Ketones (Negative) Urine Blood (Negative) Urine Nitrite (Negative) Urine Bilirubin (Negative) Urine Urobilinogen (<2.0) mg/dL Ur Leukocyte Esterase (Negative) Urine RBC (0-5) /hpf Urine WBC (0-5) /hpf Ur Squamous Epith Cells (0-4) /hpf Urine Bacteria (None) /hpf Urine Mucus (None) /hpf Disposition Clinical Impression: UTI (urinary tract infection) Disposition: HOME SELF-CARE Condition: Good Instructions (If sedation given, give patient instructions): Urinary Tract Infection in Women (ED) Additional Instructions: Patient advised to follow-up with her primary care doctor. Return to emergency department if any alarming signs or symptoms occur. Take medication as prescribed. Encouraged follow-up with your regular doctor within the next week. Prescriptions: Cephalexin [Keflex] 500 mg PO Q8HR #30 cap Phenazopyridine [Pyridium] 100 mg PO TID #9 tablet Is patient prescribed a controlled substance at d/c from ED?: No Referrals: Julito Pina MD [Primary Care Provider] - 1-2 days Time of Disposition: 17:50
[2018-08-19 16:53] LABS: Appearance,Urine Clear (Clear); Bacteria,Urine Rare /hpf; Bilirubin,Urine Negative (Negative); Blood,Urine Small (Negative); Color,Urine Yellow; Glucose,Urine (UA) Negative (Negative); Ketones,Urine Negative (Negative); Leukocyte Esterase,Urine Moderate (Negative); Mucus,Urine Occasional /hpf; Nitrite,Urine Negative (Negative); Protein,Urine 1+ (Negative); RBC,Urine 34 /hpf (0-5); Specific Gravity,Urine 1.013 (1.001-1.035); Squamous Epithelial Cell,Urine 1 /hpf (0-4); Urobilinogen,Urine <2.0 mg/dL (<2.0)
[2018-08-19 17:01] LABS: Basophils % (A) 1 %; Eosinophils # (A) 0.2 k/uL (0-0.7); Eosinophils % (A) 3 %; HGB 11.3 gm/dL (11.4-16.0); Lymphocytes # (A) 1.4 k/uL (1.0-4.8); Lymphocytes % (A) 20 %; MCH 30.4 pg (25.0-35.0); MCHC 30.6 g/dL (31.0-37.0); MCV 99.3 fL (80.0-100.0); Mean Platelet Volume 7.4; Monocytes # (A) 0.4 k/uL (0-1.0); Monocytes % (A) 5 %; Neutrophils # (A) 4.7 k/uL (1.3-7.7); Neutrophils % (A) 68 %; Platelet Count 276 k/uL (150-450); RBC 3.72 m/uL (3.80-5.40); RDW 13.3 % (11.5-15.5); WBC 6.9 k/uL (3.8-10.6)
[2018-08-19 17:10] LABS: Albumin 4.4 g/dL (3.5-5.0); Calcium 9.5 mg/dL (8.4-10.2); Total Bilirubin 0.6 mg/dL (0.2-1.3)
[2018-08-19 17:11] LABS: INR 0.9 (<1.2); Prothrombin Time 9.6 sec (9.0-12.0)
[2018-08-19] MEDS ORDERED: KETOROLAC 30 MG/ML 1 ML VIAL IVP STA (17:17)
[2018-08-19] MEDS ORDERED: PHENAZOPYRIDINE 100 MG TAB PO STA (17:17)
[2018-08-19] MEDS ORDERED: HYDROcodone/APAP 5-325MG 1 EACH TAB PO STA (17:17)
[2018-08-19] MEDS ORDERED: cefTRIAXone IN SWFI 1,000 MG/10 ML SYRINGE IVP STA (17:17)
[2018-08-19] MEDS ORDERED: CEPHALEXIN 500MG STARTER PACK 4 CAP BTL PO STA (18:02)
[2018-08-19 18:13] VITALS: BP 102/70; PULSE 78; RESP 16; TEMP 97.8
== END 2018-08-19 18:12 | disposition home or self-care (01) ==
LOC: EC 15:23
DX: N39.0 Urinary tract infection, site not specified (principal); J44.9 Chronic obstructive pulmonary disease, unspecified; K21.9 Gastro-esophageal reflux disease without esophagitis; I10 Essential (primary) hypertension; E07.9 Disorder of thyroid, unspecified; F41.9 Anxiety disorder, unspecified; F32.9 Major depressive disorder, single episode, unspecified; F43.10 Post-traumatic stress disorder, unspecified; Z85.3 Personal history of malignant neoplasm of breast; Z85.820 Personal history of malignant melanoma of skin; Z86.14 Personal history of Methicillin resistant Staphylococcus aureus infection; Z79.82 Long term (current) use of aspirin; Z79.890 Hormone replacement therapy; Z79.899 Other long term (current) drug therapy; Z88.8 Allergy status to other drugs, medicaments and biological substances; Z88.1 Allergy status to other antibiotic agents; Z88.5 Allergy status to narcotic agent; Z88.6 Allergy status to analgesic agent; Z91.018 Allergy to other foods; Z91.030 Bee allergy status
CPT/HCPCS: 99284; 96374; 96375; 96361; 36415; 80053; 82150; 83690; 85025; 85610; 85730; 81001; 87086; J0696; J1885

== ENCOUNTER 2018-09-12 10:59 | Emergency (ER) | payer MEDICARE, OTHER ==
--- NOTE | 2018-09-12 11:17 | ED ---
General Adult HPI - General Chief complaint: Upper Respiratory Infection Stated complaint: Cough Time Seen by Provider: 09/12/18 11:04 Source: patient, EMS, RN notes reviewed, old records reviewed Mode of arrival: EMS Limitations: no limitations - History of Present Illness Initial comments: 68-year-old female presenting for evaluation of cough and URI symptoms. Patient states for the past 2 days she's had dry cough, nasal congestion. She has had myalgias. She reports subjective fever and chills. Denies abdominal pain or nausea vomiting. No diarrhea. She has positive sick contact in the past 72 hours with similar symptoms. She has history of asthma and emphysema. No significant dyspnea. - Related Data Home Medications Medication Instructions Recorded Confirmed Aspirin EC [Ecotrin Low Dose] 81 mg PO DAILY 04/09/16 09/12/18 HYDROcodone/APAP 10-325MG [[place] 1 tab PO TID PRN 04/09/16 09/12/18 10-325] Pantoprazole Sodium [Protonix] 40 mg PO BID 04/09/16 09/12/18 EPINEPHrine [Epipen 2-River] 0.3 mg IM ONCE PRN 11/16/16 09/12/18 Fluticasone Nasal [place] [Flonase 1 spray EA NOSTRIL BID 11/16/16 09/12/18 Nasal [place]] Loratadine [Claritin] 10 mg PO DAILY 11/16/16 09/12/18 Methenamine Hippurate [Hiprex] 1 gm PO BID 11/16/16 09/12/18 Montelukast [Singulair] 10 mg PO HS 11/16/16 09/12/18 Nitroglycerin Sl Tabs [Nitrostat] 0.4 mg SUBLINGUAL Q5M PRN 11/16/16 09/12/18 Sucralfate [Carafate] 1 gm PO ACHS 12/13/16 09/12/18 Diazepam [Valium] 5 mg PO BID-W/MEALS 09/16/17 09/12/18 Losartan Potassium 50 mg PO DAILY 09/16/17 09/12/18 DULoxetine HCL [Cymbalta] 60 mg PO BID 04/24/18 09/12/18 Levothyroxine Sodium [Synthroid] 88 mcg PO DAILY 04/24/18 09/12/18 Albuterol Sulfate [Proair Hfa] 2 puff INHALATION RT-Q4H 08/11/18 09/12/18 Banophen 50 mg PO HS 08/11/18 09/12/18 Cetirizine HCl [Zyrtec] 10 mg PO DAILY 08/11/18 09/12/18 Cyanocobalamin (Vitamin B-12) 1,000 mcg PO QMONTH 08/11/18 09/12/18 [Vitamin B-12] Ergocalciferol [Vitamin D2] 50,000 unit PO Q7D 08/11/18 09/12/18 Olopatadine HCl [Pataday] 2 drop BOTH EYES BID PRN 08/11/18 09/12/18 buPROPion HCL [Wellbutrin SR] 200 mg PO BID 08/11/18 09/12/18 valACYclovir [Valtrex] 500 mg PO DAILY 08/11/18 09/12/18 Fluticasone Propionate [Flovent 1 puff INHALATION RT-BID 09/12/18 09/12/18 [place]] Hydrochlorothiazide 12.5 mg PO DAILY 09/12/18 09/12/18 Metoprolol/Hydrochlorothiazide 1 tab PO BID 09/12/18 09/12/18 [Lopressor Hct 50-25 mg Tab] Paliperidone [Invega] 3 mg PO DAILY 09/12/18 09/12/18 Topiramate [Topamax] 25 mg PO BID 09/12/18 09/12/18 Previous Rx's Medication Instructions Recorded Albuterol Inhaler [Ventolin Hfa 1 - 2 puff INHALATION Q4HR PRN #1 09/12/18 Inhaler] inhaler Amoxic-Pot Clav 875-125Mg 1 tab PO Q12HR #14 tablet 09/12/18 [Augmentin 875-125] Azithromycin [Zithromax Z-pack] 0 mg PO DIRECTED #6 tab 09/12/18 Allergies Allergy/AdvReac Type Severity Reaction Status Date / Time carisoprodol [From Soma] Allergy Unknown Verified 08/19/18 15:33 chlorpromazine Allergy Unknown Verified 08/19/18 15:33 [From Thorazine] ciprofloxacin [From Cipro] Allergy Unknown Verified 08/19/18 15:33 clonazepam [From Klonopin] Allergy Unknown Verified 08/19/18 15:33 cyclobenzaprine Allergy Unknown Verified 08/19/18 15:33 [From Flexeril] metoclopramide [From Reglan] Allergy Anaphylaxis Verified 08/19/18 15:33 metronidazole [From Flagyl] Allergy Anaphylaxis Verified 08/19/18 15:33 morphine Allergy Rash/Hives Verified 08/19/18 15:33 naproxen Allergy Unknown Verified 08/19/18 15:33 papaya Allergy Rash/Hives Verified 08/19/18 15:33 prednisone Allergy Anaphylaxis Verified 08/19/18 15:33 prochlorperazine Allergy Anaphylaxis Verified 08/19/18 15:33 [From Compazine] venom-honey bee Allergy Anaphylaxis Verified 08/19/18 15:33 [bee venom (honey bee)] ketorolac [From Toradol] AdvReac Severe Abdominal Verified 08/19/18 15:33 Pain baclofen AdvReac Twitching Verified 08/19/18 15:33 ibuprofen [From Motrin] AdvReac Abdominal Verified 08/19/18 15:33 Pain meperidine [From Demerol] AdvReac Rapid Verified 08/19/18 15:33 Heart Rate Phenothiazines AdvReac Altered Verified 08/19/18 15:33 Mental Status Review of Systems ROS Statement: Those systems with pertinent positive or pertinent negative responses have been documented in the HPI. ROS Other: All systems not noted in ROS Statement are negative. Past Medical History Past Medical History: Asthma, Cancer, COPD, GERD/Reflux, Hypertension, Pneumonia, Thyroid Disorder Additional Past Medical History / Comment(s): shingles, RT BREAST LUMPECTOMY/CANCER, THYROID REMOVE, CATARACTS, BRONCHITIS, MONO TEENAGER, LITE CASE OF POLIO AGE 8, MELANOMA SKIN CANCER REMOVED, History of Any Multi-Drug Resistant Organisms: MRSA Date of last positivie culture/infection: 2009 MDRO Source:: LEFT ULNAR BONE Past Surgical History: Appendectomy, Back Surgery, Cholecystectomy, Orthopedic Surgery Additional Past Surgical History / Comment(s): EYE SX FOR LAZY EYE, SX ON TEAR DUCTS, BACK SURGERY MICRO DISC, LT WRIST BROKEN 9 GALLO HAD 13 Surgeries TO CORRECT, left shoulder and humorous shattered from a fall with 2 surgeries to correct, LAPROSCOPIES- BENIGN TUNOR SIZE OF GRAPFRUIT REMOVED AGE 11 OR 1, RT BREAST BX/LUMPECTOMY,LT PINK FINGER SX TO STRAIGHTEN.MELANOMA SKIN CANCER REMOVED. Past Anesthesia/Blood Transfusion Reactions: No Reported Reaction Additional Past Anesthesia/Blood Transfusion Reaction / Comment(s): CLAUSTERPHOBIA Past Psychological History: Anxiety, Depression, PTSD Smoking Status: Never smoker Past Alcohol Use History: Occasional Past Drug Use History: None Reported - Past Family History Mother Family Medical History: Asthma Additional Family Medical History / Comment(s): ETOH/SMOKER Father Family Medical History: Cancer, Liver Disease Additional Family Medical History / Comment(s): ESOPHOGEAL CANCER, ETOH General Exam Limitations: no limitations General appearance: alert, in no apparent distress Head exam: Present: atraumatic, normocephalic Eye exam: Present: normal appearance, PERRL ENT exam: Present: mucous membranes moist, other (Mild pharyngeal erythema no tonsillar swelling. Rhinorrhea and nasal congestion) Neck exam: Present: normal inspection. Absent: tenderness, meningismus Respiratory exam: Present: wheezes (Trace wheeze with good air entry, transmitted upper airway sounds). Absent: respiratory distress Cardiovascular Exam: Present: regular rate, normal rhythm GI/Abdominal exam: Present: soft. Absent: distended, tenderness Extremities exam: Present: normal inspection, normal capillary refill. Absent: tenderness, pedal edema, calf tenderness Back exam: Present: normal inspection, full ROM Neurological exam: Present: alert, oriented X3 Psychiatric exam: Present: normal affect, normal mood Skin exam: Present: warm, dry, intact. Absent: cyanosis, diaphoretic Course Vital Signs 09/12/18 09/12/18 11:06 11:25 Temperature 98.5 F Pulse Rate 75 Respiratory 18 18 Rate Blood Pressure 125/64 O2 Sat by Pulse 100 Oximetry Medical Decision Making - Medical Decision Making 68-year-old female history of asthma and emphysema presenting with cough and URI symptoms. Patient well-appearing with stable vitals. X-rays obtained, negative for focal pneumonia. Influenza testing is performed which is negative. She will be prescribed albuterol, and abx. She has steroid ALLERGY. She will follow-up with her primary care physician. - Lab Data Lab Results 09/12/18 Range/Units 11:38 Influenza Type A RNA Not Detected (Not Detectd) Influenza Type B (PCR) Not Detected (Not Detectd) Disposition Clinical Impression: Upper respiratory infection, COPD (chronic obstructive pulmonary disease) Disposition: HOME SELF-CARE Condition: Good Instructions (If sedation given, give patient instructions): Upper Respiratory Infection (ED), COPD (Chronic Obstructive Pulmonary Disease) (ED) Prescriptions: Amoxic-Pot Clav 875-125Mg [Augmentin 875-125] 1 tab PO Q12HR #14 tablet Albuterol Inhaler [Ventolin Hfa Inhaler] 1 - 2 puff INHALATION Q4HR PRN #1 inhaler PRN Reason: Shortness Of Breath Azithromycin [Zithromax Z-pack] 0 mg PO DIRECTED #6 tab Is patient prescribed a controlled substance at d/c from ED?: No Referrals: Julito Pina MD [Primary Care Provider] - 1-2 days
--- NOTE | 2018-09-12 11:46 | XR ---
EXAMINATION TYPE: XR chest 2V DATE OF EXAM: 09/12/2018 COMPARISON: 12/13/2016 INDICATION: Pain TECHNIQUE: Frontal and lateral views of the chest are obtained. FINDINGS: The heart size is normal. The pulmonary vasculature is normal. The lungs are clear. IMPRESSION: 1. No acute pulmonary process.
[2018-09-12 12:51] VITALS: BP 116/80; PULSE 71; RESP 16; TEMP 98.2
== END 2018-09-12 12:48 | disposition home or self-care (01) ==
LOC: EC 10:59
DX: J06.9 Acute upper respiratory infection, unspecified (principal); J43.9 Emphysema, unspecified; K21.9 Gastro-esophageal reflux disease without esophagitis; I10 Essential (primary) hypertension; E07.9 Disorder of thyroid, unspecified; F41.9 Anxiety disorder, unspecified; F32.9 Major depressive disorder, single episode, unspecified; Z85.828 Personal history of other malignant neoplasm of skin; Z87.01 Personal history of pneumonia (recurrent); Z86.14 Personal history of Methicillin resistant Staphylococcus aureus infection; Z90.49 Acquired absence of other specified parts of digestive tract; Z98.890 Other specified postprocedural states; Z79.51 Long term (current) use of inhaled steroids; Z79.82 Long term (current) use of aspirin; Z79.890 Hormone replacement therapy; Z79.899 Other long term (current) drug therapy; Z88.1 Allergy status to other antibiotic agents; Z88.5 Allergy status to narcotic agent; Z88.6 Allergy status to analgesic agent; Z88.8 Allergy status to other drugs, medicaments and biological substances; Z91.030 Bee allergy status; Z91.018 Allergy to other foods
CPT/HCPCS: 71046; 87502; 99284

== ENCOUNTER 2018-11-21 13:19 | Emergency (ER) | payer MEDICARE, OTHER ==
[2018-11-21 13:41] VITALS: TEMP 98.1
[2018-11-21] MEDS ORDERED: ACETAMINOPHEN TAB 500 MG TAB PO STA (14:19)
--- NOTE | 2018-11-21 14:31 | ED ---
Fall HPI - General Chief Complaint: Fall Stated Complaint: Fall Time Seen by Provider: 11/21/18 13:59 Source: patient Mode of arrival: ambulatory - History of Present Illness Initial Comments: Patient is a 68-year-old female who presents to the emergency department after she took a fall down her stairs today. Patient is complaining of head and neck pain as well as right-sided ankle, lower leg and right wrist pain. Patient denies LOC and being on blood thinners. Patient states she was going down her stairs and tripped and fell down at least 5-6 stairs landing mostly on her head and her right side. On arrival patient is in a c-collar. Patient states her pain is 10 out of 10 right now. She is alert and answering questions. Patient denies abdominal pain, nausea, vomiting, changes in vision. Patient has no other complaints at this time. - Related Data Home Medications Medication Instructions Recorded Confirmed Aspirin EC [Ecotrin Low Dose] 81 mg PO DAILY 04/09/16 11/21/18 HYDROcodone/APAP 10-325MG [[place] 1 tab PO TID PRN 04/09/16 11/21/18 10-325] Pantoprazole Sodium [Protonix] 40 mg PO BID 04/09/16 11/21/18 EPINEPHrine [Epipen 2-River] 0.3 mg IM ONCE PRN 11/16/16 11/21/18 Fluticasone Nasal [place] [Flonase 1 spray EA NOSTRIL BID 11/16/16 11/21/18 Nasal [place]] Loratadine [Claritin] 10 mg PO DAILY 11/16/16 11/21/18 Methenamine Hippurate [Hiprex] 1 gm PO BID 11/16/16 11/21/18 Montelukast [Singulair] 10 mg PO HS 11/16/16 11/21/18 Nitroglycerin Sl Tabs [Nitrostat] 0.4 mg SUBLINGUAL Q5M PRN 11/16/16 11/21/18 Sucralfate [Carafate] 1 gm PO ACHS 12/13/16 11/21/18 Diazepam [Valium] 5 mg PO BID-W/MEALS 09/16/17 11/21/18 Losartan Potassium 50 mg PO DAILY 09/16/17 11/21/18 DULoxetine HCL [Cymbalta] 60 mg PO BID 04/24/18 11/21/18 Levothyroxine Sodium [Synthroid] 88 mcg PO DAILY 04/24/18 11/21/18 Albuterol Sulfate [Proair Hfa] 2 puff INHALATION RT-Q4H PRN 08/11/18 11/21/18 Banophen 50 mg PO HS 08/11/18 11/21/18 Cetirizine HCl [Zyrtec] 10 mg PO HS 08/11/18 11/21/18 Cyanocobalamin (Vitamin B-12) 1,000 mcg PO QMONTH 08/11/18 11/21/18 [Vitamin B-12] Olopatadine HCl [Pataday] 1 drop BOTH EYES DAILY PRN 08/11/18 11/21/18 buPROPion HCL [Wellbutrin SR] 200 mg PO BID 08/11/18 11/21/18 valACYclovir [Valtrex] 500 mg PO DAILY 08/11/18 11/21/18 Fluticasone Propionate [Flovent 1 puff INHALATION RT-BID 09/12/18 11/21/18 Diskus] Hydrochlorothiazide 12.5 mg PO DAILY 09/12/18 11/21/18 Metoprolol/Hydrochlorothiazide 1 tab PO BID 09/12/18 11/21/18 [Lopressor Hct 50-25 mg Tab] Paliperidone [Invega] 3 mg PO DAILY 09/12/18 11/21/18 Atenolol [Tenormin] 50 mg PO BID 11/21/18 11/21/18 Allergies Allergy/AdvReac Type Severity Reaction Status Date / Time carisoprodol [From Soma] Allergy Unknown Verified 11/21/18 13:51 chlorpromazine Allergy Unknown Verified 11/21/18 13:51 [From Thorazine] ciprofloxacin [From Cipro] Allergy Unknown Verified 11/21/18 13:51 clonazepam [From Klonopin] Allergy Unknown Verified 11/21/18 13:51 cyclobenzaprine Allergy Unknown Verified 11/21/18 13:51 [From Flexeril] metoclopramide [From Reglan] Allergy Anaphylaxis Verified 11/21/18 13:51 metronidazole [From Flagyl] Allergy Anaphylaxis Verified 11/21/18 13:51 morphine Allergy Rash/Hives Verified 11/21/18 13:51 naproxen Allergy Unknown Verified 11/21/18 13:51 papaya Allergy Rash/Hives Verified 11/21/18 13:51 prednisone Allergy Anaphylaxis Verified 11/21/18 13:51 prochlorperazine Allergy Anaphylaxis Verified 11/21/18 13:51 [From Compazine] venom-honey bee Allergy Anaphylaxis Verified 11/21/18 13:51 [bee venom (honey bee)] ketorolac [From Toradol] AdvReac Severe Abdominal Verified 11/21/18 13:51 Pain baclofen AdvReac Twitching Verified 11/21/18 13:51 ibuprofen [From Motrin] AdvReac Abdominal Verified 11/21/18 13:51 Pain meperidine [From Demerol] AdvReac Rapid Verified 11/21/18 13:51 Heart Rate Phenothiazines AdvReac Altered Verified 11/21/18 13:51 Mental Status Review of Systems ROS Statement: Those systems with pertinent positive or pertinent negative responses have been documented in the HPI. ROS Other: All systems not noted in ROS Statement are negative. Past Medical History Past Medical History: Asthma, Cancer, COPD, GERD/Reflux, Hypertension, Pneumonia, Thyroid Disorder Additional Past Medical History / Comment(s): shingles, RT BREAST LUMPECTOMY/CANCER, THYROID REMOVE, CATARACTS, BRONCHITIS, MONO TEENAGER, LITE CASE OF POLIO AGE 8, MELANOMA SKIN CANCER REMOVED, History of Any Multi-Drug Resistant Organisms: MRSA Date of last positivie culture/infection: 2009 MDRO Source:: LEFT ULNAR BONE Past Surgical History: Appendectomy, Back Surgery, Cholecystectomy, Orthopedic Surgery Additional Past Surgical History / Comment(s): EYE SX FOR LAZY EYE, SX ON TEAR DUCTS, BACK SURGERY MICRO DISC, LT WRIST BROKEN 9 GALLO HAD 13 Surgeries TO CORRECT, left shoulder and humorous shattered from a fall with 2 surgeries to correct, LAPROSCOPIES- BENIGN TUNOR SIZE OF GRAPFRUIT REMOVED AGE 11 OR 1, RT BREAST BX/LUMPECTOMY,LT PINK FINGER SX TO STRAIGHTEN.MELANOMA SKIN CANCER REMOVED. Past Anesthesia/Blood Transfusion Reactions: No Reported Reaction Additional Past Anesthesia/Blood Transfusion Reaction / Comment(s): CLAUSTERPHOBIA Past Psychological History: Anxiety, Depression, PTSD Smoking Status: Never smoker Past Alcohol Use History: Occasional Past Drug Use History: None Reported - Past Family History Mother Family Medical History: Asthma Additional Family Medical History / Comment(s): ETOH/SMOKER Father Family Medical History: Cancer, Liver Disease Additional Family Medical History / Comment(s): ESOPHOGEAL CANCER, ETOH General Exam Limitations: no limitations General appearance: alert, in no apparent distress Head exam: Present: atraumatic, normocephalic, other (Small abrasion to the right bahai area) Eye exam: Present: normal appearance, PERRL, EOMI. Absent: nystagmus, periorbital swelling Pupils: Present: normal accommodation ENT exam: Present: mucous membranes moist Expanded Ear exam: Present: normal external inspection Mouth exam: Present: laceration (To the outside lower lip, and inner lip with a broken tooth embedded in the lower lip.) Teeth exam: Present: fractured tooth # (#9) Throat exam: normal inspection Neck exam: Present: normal inspection Respiratory exam: Present: normal lung sounds bilaterally. Absent: respiratory distress, wheezes, rales, rhonchi Cardiovascular Exam: Present: regular rate, normal rhythm. Absent: systolic murmur, diastolic murmur, rubs, gallop GI/Abdominal exam: Present: soft, normal bowel sounds. Absent: tenderness, guarding, rebound, rigid Extremities exam: Present: normal inspection, tenderness (Right knee, right lower leg, right wrist tenderness. There is no swelling and/or erythema of the areas.) Back exam: Present: normal inspection Neurological exam: Present: alert, oriented X3, CN II-XII intact Expanded Patient oriented to: Present: person, place, time Cranial nerves: EOM's Intact: Normal Sensory exam: Upper Extremity Light Touch: Normal, Lower Extremity Light Touch: Normal Motor strength exam: RUE: 5, LUE: 5, RLE: 5, LLE: 5 Eye Response: (4) open spontaneously Motor Response: (6) obeys commands Verbal Response: (5) oriented Psychiatric exam: Present: normal affect, normal mood Skin exam: Present: warm, dry. Absent: rash, erythema Expanded Type of lesion: Present: laceration (3 cm laceration to the bottom outer lip.) Course Vital Signs 11/21/18 11/21/18 11/21/18 13:29 14:10 14:40 Temperature 98.1 F Pulse Rate 65 58 L 61 Respiratory 18 16 18 Rate Blood Pressure 99/55 108/54 115/58 O2 Sat by Pulse 98 99 98 Oximetry 11/21/18 11/21/18 11/21/18 15:10 15:40 15:50 Temperature Pulse Rate 58 L 56 L 58 L Respiratory 16 8 L 8 L Rate Blood Pressure 117/57 117/57 117/57 O2 Sat by Pulse 98 Oximetry 11/21/18 11/21/18 11/21/18 16:00 16:40 17:10 Temperature Pulse Rate 56 L 60 61 Respiratory 8 L 16 12 Rate Blood Pressure 117/57 125/67 121/63 O2 Sat by Pulse 98 99 Oximetry 11/21/18 18:06 Temperature Pulse Rate 62 Respiratory Rate Blood Pressure 112/58 O2 Sat by Pulse Oximetry Procedures - Laceration Laceration #1 Consent Obtained: verbal consent Indication: laceration Site: lip (Bottom external) Size (cm): 3 Description: linear Depth: simple, single layer Anesthetic Used: lidocaine 1% Anesthesia Technique: local infiltration Amount (mls): 2 Pre-repair: irrigated extensively Type of Sutures: nylon Size of Sutures: 4-0 Number of Sutures: 4 Technique: simple, interrupted Patient Tolerated Procedure: well, no complications Medical Decision Making - Medical Decision Making Patient is a 68-year-old female presents the ER after falling down last 5 or 6 stairs. Patient is complaining of head, neck, right sided knee, lower leg, wrist pain. Patient denies LOC, blood thinners. On exam, patient has no focal neurological deficits. Patient was in c-collar upon arrival. Pain with palpation of the right knee and decreased range of motion as well as pain with palpation of the right lower leg and right wrist. CT head, neck, facial bones was ordered due to mechanism of injury. There is no acute fractures or dislocations of the cervical spine, no acute and occasional hemorrhage, and there is no acute displaced facial bone fractures seen. X-rays of the right wrist, tib-fib, knee show no acute fractures dislocations. Laceration to the lower lip was repaired with 4, 4-0 nylon sutures. Patient tolerated procedure well. Patient will have sutures removed in 10-12 days. Patient will be discharged home. Case was discussed with Dr. Rosenthal, who agreed with plan of care. Return parameters were discussed with the patient and she verbalized understanding. Disposition Clinical Impression: Fall, Laceration of chin, Right leg pain, Right wrist pain Disposition: HOME SELF-CARE Condition: Stable Instructions (If sedation given, give patient instructions): Care For Your Stitches (ED), Fall Prevention for Older Adults (ED) Additional Instructions: Please return to the Emergency Department if symptoms worsen or any other concerns. Stitches need to be removed in 10-12 days. Is patient prescribed a controlled substance at d/c from ED?: No Referrals: Julito Pina MD [Primary Care Provider] - 1-2 days
[2018-11-21] MEDS ORDERED: HYDROmorphone 0.5 MG/0.5 ML SYRINGE IM STA (14:39)
--- NOTE | 2018-11-21 15:51 | CT ---
EXAMINATION TYPE: CT brain cspine wo con, CT facial bones wo con DATE OF EXAM: 11/21/2018 COMPARISON: CT brain and cervical spine June 18, 2018 HISTORY: Fall today with facial injury headache and neck pain. CT DLP: 1025.7 mGycm. Automated Exposure Control for Dose Reduction was Utilized. TECHNIQUE: CT scan of the head , facial bones, and cervical spine are performed without contrast. FINDINGS: There is no acute intracranial hemorrhage or midline shift identified. Mild Ventricular a nd sulcal prominence are redemonstrated. The calvarium is intact. Mandible is intact. Temporomandibular joints are maintained bilaterally. Nasal bones are intact. Orbi johnny floors and [place] are intact. The globes are intact bilaterally. Intraconal fat is preserved. The zygomatic arches are intact. Pterygoid plates are intact. Visualized paranasal sinuses are clear. Cervical spine is visualized in its entirety from C1 through upper thoracic levels and we demonstrate s loss of normal cervical curvature without evidence of acute fracture or dislocation. Prevertebral soft tissue appears within normal limits. The C1-C2 articulation is within normal limits on the burt nal images. There is moderate disc space narrowing C4 to C5-C6 and C7 levels with moderate anterior spurring rede monstrated. Posterior spur disc complex effacing the anterior thecal sac C6-C7 level and causes asymm etric moderate left greater than right bilateral neural foraminal narrowing. No significant change fr om prior. Axial images redemonstrated multilevel uncovertebral facet causing multilevel bilateral kirsty ral foraminal narrowing. Lung apices show mild to moderate biapical pleural/parenchymal scarring. IMPRESSION: 1. There is no acute fracture or dislocation evident in the cervical spine. 2. No acute intracranial hemorrhage or midline shift is seen. 3. No acute displaced facial bone fracture.
[2018-11-21] MEDS ORDERED: LIDOCAINE 1% INJ 10MG/ML (20 ML MDV) SQ ONE (15:55)
--- NOTE | 2018-11-21 16:39 | XR ---
EXAMINATION TYPE: XR knee complete RT, XR tibia fibula RT DATE OF EXAM: 11/21/2018 CLINICAL HISTORY: Fall injury with pain. TECHNIQUE: Three views of the right knee are obtained. Two-view right leg are acquired. COMPARISON: None. FINDINGS: There is no acute fracture/dislocation evident in right knee. [id number] tricompartm ent joint space loss and spurring. The overlying soft tissue appears unremarkable. Images of right leg show no acute fracture or dislocation in the mid to distal tibia and fibula. Visu alized right ankle joint is within normal limits. Overlying soft tissues unremarkable. IMPRESSION: There is no acute fracture or dislocation in the right leg or knee.
--- NOTE | 2018-11-21 16:39 | XR ---
PROCEDURE: XR wrist complete RT - 4V DATE AND TIME: 11/21/2018 4:29 PM CLINICAL INDICATION: PHH; Pain TECHNIQUE: Department protocol COMPARISON: None FINDINGS: There is no fracture or malalignment. The soft tissues show nonspecific soft tissue swelling volar and dorsal to the wrist. There are multifocal moderate and marked osteoarthritis changes, particularly prominent at the radioc arpal articulation. IMPRESSION: Soft tissue swelling.
[2018-11-21 18:05] VITALS: RESP 12
[2018-11-21 18:06] VITALS: BP 112/58; PULSE 62
== END 2018-11-21 18:19 | disposition home or self-care (01) ==
LOC: EC 13:19
DX: S01.81XA Laceration without foreign body of other part of head, initial encounter (principal); S02.5XXA Fracture of tooth (traumatic), initial encounter for closed fracture; M25.531 Pain in right wrist; M79.604 Pain in right leg; M54.2 Cervicalgia; R51 Headache; M25.561 Pain in right knee; K21.9 Gastro-esophageal reflux disease without esophagitis; F41.9 Anxiety disorder, unspecified; E07.9 Disorder of thyroid, unspecified; I10 Essential (primary) hypertension; J44.9 Chronic obstructive pulmonary disease, unspecified; Z79.890 Hormone replacement therapy; Z79.82 Long term (current) use of aspirin; Z79.51 Long term (current) use of inhaled steroids; Z79.899 Other long term (current) drug therapy; Z88.1 Allergy status to other antibiotic agents; Z88.8 Allergy status to other drugs, medicaments and biological substances; Z88.5 Allergy status to narcotic agent; Z88.6 Allergy status to analgesic agent; Z91.018 Allergy to other foods; Z91.030 Bee allergy status; Z85.3 Personal history of malignant neoplasm of breast; Z90.11 Acquired absence of right breast and nipple; Z90.89 Acquired absence of other organs; Z85.828 Personal history of other malignant neoplasm of skin; W10.9XXA Fall (on) (from) unspecified stairs and steps, initial encounter; Y92.009 Unspecified place in unspecified non-institutional (private) residence as the place of occurrence of the external cause
CPT/HCPCS: 99284; 12013; 96372; 73110; 73590; 73562; 72125; 70486; 70450; J2001; J1170

== ENCOUNTER 2018-11-23 09:55 | Emergency (ER) | payer MEDICARE, OTHER ==
[2018-11-23 10:17] VITALS: TEMP 97.9
[2018-11-23] MEDS ORDERED: SODIUM CHLORIDE 0.9% 1,000 ML IV STA (10:38)
[2018-11-23] MEDS ORDERED: SODIUM CHLORIDE 0.9% 1,000 ML IV ONE (10:39)
--- NOTE | 2018-11-23 10:40 | ED ---
Fall HPI - General Chief Complaint: Fall Stated Complaint: fall, recheck Time Seen by Provider: 11/23/18 10:25 Source: patient Mode of arrival: ambulatory - History of Present Illness Initial Comments: 68-year-old female presenting today for chief complaint of reevaluation after f all. Patient states that she was evaluated 2 days prior to falling down 6 steps. She denied loss of consciousness. She states she also thought her right side she states she cut her bottom lip and this was sutured. Patient states she had nasal pain. Patient states she is unsure of her nasal pain was addressed. She states she did have a CT of her brain and neck. Patient upon chart review did have a face CT no noted displaced fractures. Patient states her nose feels swollen. Patient states she chipped teeth. Patient states that she has had both right and left knee pain right and left ankle pain. She states that she mostly pain of the right lower extremity when she was evaluated. Patient states that she now wants her left side of her body examined. Patient states that today while walking she states she wanted to have a mild with her dog. She states she no difficulty ambulating. She states that she felt slightly lightheaded. Patient states shopping much of that she denies any chest pain or any shortness of breath. Patient states she took her blood pressure medications prior to taking the walk. Patient denies any numbness tingling or loss sensation lower 70s denies any back pain headache she does a sensation of the room spinning or vomiting. Denies visual changes. Remaining review of systems negative upon arrival patient appears well there is no signs of acute distress. Ambulating without difficulty. - Related Data Home Medications Medication Instructions Recorded Confirmed Aspirin EC [Ecotrin Low Dose] 81 mg PO DAILY 04/09/16 11/23/18 Pantoprazole Sodium [Protonix] 40 mg PO BID 04/09/16 11/23/18 EPINEPHrine [Epipen 2-River] 0.3 mg IM ONCE PRN 11/16/16 11/23/18 Fluticasone Nasal [place] [Flonase 1 spray EA NOSTRIL BID 11/16/16 11/23/18 Nasal [place]] Loratadine [Claritin] 10 mg PO DAILY 11/16/16 11/23/18 Methenamine Hippurate [Hiprex] 1 gm PO BID 11/16/16 11/23/18 Montelukast [Singulair] 10 mg PO HS 11/16/16 11/23/18 Nitroglycerin Sl Tabs [Nitrostat] 0.4 mg SUBLINGUAL Q5M PRN 11/16/16 11/23/18 Sucralfate [Carafate] 1 gm PO ACHS 12/13/16 11/23/18 Diazepam [Valium] 5 mg PO BID-W/MEALS 09/16/17 11/23/18 Losartan Potassium 50 mg PO DAILY 09/16/17 11/23/18 DULoxetine HCL [Cymbalta] 60 mg PO BID 04/24/18 11/23/18 Levothyroxine Sodium [Synthroid] 88 mcg PO DAILY 04/24/18 11/23/18 Albuterol Sulfate [Proair Hfa] 2 puff INHALATION RT-Q4H PRN 08/11/18 11/23/18 Banophen 50 mg PO HS 08/11/18 11/23/18 Cetirizine HCl [Zyrtec] 10 mg PO HS 08/11/18 11/23/18 Cyanocobalamin (Vitamin B-12) 1,000 mcg PO QMONTH 08/11/18 11/23/18 [Vitamin B-12] Olopatadine HCl [Pataday] 1 drop BOTH EYES DAILY PRN 08/11/18 11/23/18 buPROPion HCL [Wellbutrin SR] 200 mg PO BID 08/11/18 11/23/18 valACYclovir [Valtrex] 500 mg PO DAILY 08/11/18 11/23/18 Fluticasone Propionate [Flovent 1 puff INHALATION RT-BID 09/12/18 11/23/18 Diskus] Hydrochlorothiazide 12.5 mg PO DAILY 09/12/18 11/23/18 Metoprolol/Hydrochlorothiazide 1 tab PO BID 09/12/18 11/23/18 [Lopressor Hct 50-25 mg Tab] Paliperidone [Invega] 3 mg PO DAILY 09/12/18 11/23/18 Atenolol [Tenormin] 25 mg PO DAILY 11/23/18 11/23/18 Allergies Allergy/AdvReac Type Severity Reaction Status Date / Time carisoprodol [From Soma] Allergy Unknown Verified 11/23/18 11:22 chlorpromazine Allergy Unknown Verified 11/23/18 11:22 [From Thorazine] ciprofloxacin [From Cipro] Allergy Unknown Verified 11/23/18 11:22 clonazepam [From Klonopin] Allergy Unknown Verified 11/23/18 11:22 cyclobenzaprine Allergy Unknown Verified 11/23/18 11:22 [From Flexeril] metoclopramide [From Reglan] Allergy Anaphylaxis Verified 11/23/18 11:22 metronidazole [From Flagyl] Allergy Anaphylaxis Verified 11/23/18 11:22 morphine Allergy Rash/Hives Verified 11/23/18 11:22 naproxen Allergy Unknown Verified 11/23/18 11:22 papaya Allergy Rash/Hives Verified 11/23/18 11:22 prednisone Allergy Anaphylaxis Verified 11/23/18 11:22 prochlorperazine Allergy Anaphylaxis Verified 11/23/18 11:22 [From Compazine] venom-honey bee Allergy Anaphylaxis Verified 11/23/18 11:22 [bee venom (honey bee)] ketorolac [From Toradol] AdvReac Severe Abdominal Verified 11/23/18 11:22 Pain baclofen AdvReac Twitching Verified 11/23/18 11:22 ibuprofen [From Motrin] AdvReac Abdominal Verified 11/23/18 11:22 Pain meperidine [From Demerol] AdvReac Rapid Verified 11/23/18 11:22 Heart Rate Phenothiazines AdvReac Altered Verified 11/23/18 11:22 Mental Status Review of Systems ROS Statement: Those systems with pertinent positive or pertinent negative responses have been documented in the HPI. ROS Other: All systems not noted in ROS Statement are negative. Past Medical History Past Medical History: Asthma, Cancer, COPD, GERD/Reflux, Hypertension, Pneumonia, Thyroid Disorder Additional Past Medical History / Comment(s): shingles, RT BREAST LUMPECTOMY/CANCER, THYROID REMOVE, CATARACTS, BRONCHITIS, MONO TEENAGER, LITE CASE OF POLIO AGE 8, MELANOMA SKIN CANCER REMOVED, History of Any Multi-Drug Resistant Organisms: MRSA Date of last positivie culture/infection: 2009 MDRO Source:: LEFT ULNAR BONE Past Surgical History: Appendectomy, Back Surgery, Cholecystectomy, Orthopedic Surgery Additional Past Surgical History / Comment(s): EYE SX FOR LAZY EYE, SX ON TEAR DUCTS, BACK SURGERY MICRO DISC, LT WRIST BROKEN 7 GALLO HAD 13 Surgeries TO CORRECT, left shoulder and humorous shattered from a fall with 2 surgeries to correct, LAPROSCOPIES- BENIGN TUNOR SIZE OF GRAPFRUIT REMOVED AGE 11 OR 1, RT BREAST BX/LUMPECTOMY,LT PINK FINGER SX TO STRAIGHTEN.MELANOMA SKIN CANCER REMOVED. Past Anesthesia/Blood Transfusion Reactions: No Reported Reaction Additional Past Anesthesia/Blood Transfusion Reaction / Comment(s): CLAUSTERPHOBIA Past Psychological History: Anxiety, Depression, PTSD Smoking Status: Never smoker Past Alcohol Use History: Occasional Past Drug Use History: None Reported - Past Family History Mother Family Medical History: Asthma Additional Family Medical History / Comment(s): ETOH/SMOKER Father Family Medical History: Cancer, Liver Disease Additional Family Medical History / Comment(s): ESOPHOGEAL CANCER, ETOH General Exam - General Exam Comments Initial Comments: General: The patient is awake and alert, in no distress, and does not appear acutely ill. Eye: +3 mm pupils are equal, round and reactive to light, extra-ocular movements are intact. No nystagmus. There is normal conjunctiva bilaterally. No signs of icterus. Ears, nose, mouth and throat: There are moist mucous membranes and no oral lesions. No raccoon or gore sign, Normal TM. Neck: The neck is supple, there is no tenderness or JVD. Cardiovascular: There is a regular rate and rhythm. No murmur, rub or gallop is appreciated. Respiratory: Lungs are clear to auscultation, respirations are non-labored, breath sounds are equal. No wheezes, stridor, rales, or rhonchi. Gastrointestinal: Soft, non-distended, non-tender abdomen without masses or organomegaly noted. There is no rebound or guarding present. No CVA tenderness. Bowel sounds are unremarkable. Musculoskeletal:Soft tissue swelling of the knees or ankles bilaterally. Mild bruising of the anterior knees bilaterally. Extensor mechanism intact bilaterally. Patient is able to fully weight-bear. Strength 5/5 of the upper and lower extremities equal comparison bilaterally 5/5 strength of the upper extremities equal comparison bilaterally. Sensation intact of the lower extremities equal comparison bilaterally including proximal distal to the raise of complaint. Radial and DP pulses equal bilaterally 2+. Neurological: A&O x 3. CN II-XII intact, There are no obvious motor or sensory deficits. Coordination appears grossly intact. Speech is normal. Skin: Skin is warm and dry and no rashes or lesions are noted. Psychiatric: Cooperative, appropriate mood & affect, normal judgment. Limitations: no limitations Course Vital Signs 11/23/18 11/23/18 11/23/18 10:12 10:18 11:24 Temperature 97.9 F Pulse Rate 73 Respiratory 18 Rate Blood Pressure 77/53 81/52 95/58 O2 Sat by Pulse 97 Oximetry 11/23/18 11/23/18 11/23/18 11:46 12:40 12:41 Temperature Pulse Rate 63 62 Respiratory 16 18 Rate Blood Pressure 96/49 110/60 109/69 O2 Sat by Pulse 98 99 Oximetry Medical Decision Making - Medical Decision Making 68-year-old female presenting for evaluation of left knee left ankle. Patient states she felt lightheaded under walk to take her blood pressure medication. Patient noted be hypotensive on arrival. Patient denies chest pain shortness of breath. She states it was not very significant lightheaded sensation has gone away. Patient given IV fluids. Patient is on multiple blood pressure medications. For this may be the cause. She was negative. EKG no acute findings. Chest x-ray within normal limits. Patient denies any shortnes of breath or CP. Improvement of BP. No osseous injury on imaging studies. Neurovascular exam intact. Patient imaging results discussed. She is requesting discharge I believe patient low BP most likely medication related. I gave prescription for blood pressure cuff and recommended medciation review with PCP. Discussed the case with Dr mcpherson who is agreeable with care plan and discharge. - Lab Data Result diagrams: 11/23/18 11:19 11/23/18 11:19 Lab Results 11/23/18 11/23/18 11/23/18 Range/Units 11:19 11:19 11:19 WBC 5.3 (3.8-10.6) k/uL RBC 3.74 L (3.80-5.40) m/uL Hgb 11.1 L (11.4-16.0) gm/dL Hct 35.3 (34.0-46.0) % MCV 94.4 (80.0-100.0) fL MCH 29.6 (25.0-35.0) pg MCHC 31.3 (31.0-37.0) g/dL RDW 14.1 (11.5-15.5) % Plt Count 244 (150-450) k/uL Neutrophils % 57 % Lymphocytes % 31 % Monocytes % 7 % Eosinophils % 2 % Basophils % 1 % Neutrophils # 3.0 (1.3-7.7) k/uL Lymphocytes # 1.6 (1.0-4.8) k/uL Monocytes # 0.4 (0-1.0) k/uL Eosinophils # 0.1 (0-0.7) k/uL Basophils # 0.0 (0-0.2) k/uL Sodium 142 (137-145) mmol/L Potassium 3.4 L (3.5-5.1) mmol/L Chloride 107 (98-107) mmol/L Carbon Dioxide 26 (22-30) mmol/L Anion Gap 9 mmol/L BUN 22 H (7-17) mg/dL Creatinine 1.74 H (0.52-1.04) mg/dL Est GFR (CKD-EPI)AfAm 34 (>60 ml/min/1.73 sqM) Est GFR (CKD-EPI)NonAf 29 (>60 ml/min/1.73 sqM) Glucose 86 (74-99) mg/dL Calcium 9.5 (8.4-10.2) mg/dL Total Bilirubin 0.5 (0.2-1.3) mg/dL AST 24 (14-36) U/L ALT 29 (9-52) U/L Alkaline Phosphatase 87 (38-126) U/L Troponin I <0.012 (0.000-0.034) ng/mL Total Protein 6.7 (6.3-8.2) g/dL Albumin 4.1 (3.5-5.0) g/dL Disposition Clinical Impression: Hypotension, Hx of fall, Right knee pain, Right ankle pain, Nose pain Disposition: HOME SELF-CARE Condition: Good Instructions (If sedation given, give patient instructions): R.I.C.E. Treatment (ED) Additional Instructions: Please use medication as discussed. Please follow-up with family doctor in the next 2 days of symptoms have not improved. Please monitor blood pressure at home prior to taking blood pressure medications please keep journal for primary care provider I suggest a medication review with the next week. Please return to emergency room if the symptoms increase or worsen or for any other concerns. Is patient prescribed a controlled substance at d/c from ED?: No Referrals: Julito Pina MD [Primary Care Provider] - 1-2 days Time of Disposition: 12:36
[2018-11-23] MEDS ORDERED: KETOROLAC 30 MG/ML 1 ML VIAL IVP STA (11:01)
[2018-11-23 11:37] LABS: Basophils % (A) 1 %; Eosinophils # (A) 0.1 k/uL (0-0.7); Eosinophils % (A) 2 %; HCT 35.3 % (34.0-46.0); HGB 11.1 gm/dL (11.4-16.0); Lymphocytes # (A) 1.6 k/uL (1.0-4.8); Lymphocytes % (A) 31 %; MCH 29.6 pg (25.0-35.0); MCHC 31.3 g/dL (31.0-37.0); MCV 94.4 fL (80.0-100.0); Mean Platelet Volume 8.1; Monocytes # (A) 0.4 k/uL (0-1.0); Monocytes % (A) 7 %; Neutrophils % (A) 57 %; Platelet Count 244 k/uL (150-450); RBC 3.74 m/uL (3.80-5.40); RDW 14.1 % (11.5-15.5); WBC 5.3 k/uL (3.8-10.6)
[2018-11-23 11:43] LABS: Albumin 4.1 g/dL (3.5-5.0); Calcium 9.5 mg/dL (8.4-10.2); Potassium 3.4 mmol/L (3.5-5.1); Total Bilirubin 0.5 mg/dL (0.2-1.3); Total Protein 6.7 g/dL (6.3-8.2)
--- NOTE | 2018-11-23 11:57 | XR ---
EXAMINATION TYPE: XR ankle complete LT DATE OF EXAM: 11/23/2018 CLINICAL HISTORY: Pain from fall injury. TECHNIQUE: Frontal, lateral and oblique images of the left ankle are obtained. COMPARISON: None. FINDINGS: There is no acute fracture/dislocation evident in the left ankle. The ankle mortise appea rs within normal limits. The overlying soft tissue appears unremarkable. IMPRESSION: There is no acute fracture or dislocation in the left ankle.
--- NOTE | 2018-11-23 11:59 | XR ---
EXAMINATION TYPE: XR knee complete LT DATE OF EXAM: 11/23/2018 CLINICAL HISTORY: Pain after fall injury. TECHNIQUE: Three views of the left knee are obtained. COMPARISON: Left knee x-rays August 11, 2018. FINDINGS: There is no acute fracture/dislocation evident in left knee. Mild to moderate tricompartme nt joint space loss and mild spurring is redemonstrated. Meniscal calcifications are felt present. Th e overlying soft tissue appears unremarkable. IMPRESSION: There is no acute fracture or dislocation in the left knee. No significant change from p rior.
--- NOTE | 2018-11-23 12:02 | XR ---
EXAMINATION TYPE: XR chest 2V DATE OF EXAM: 11/23/2018 COMPARISON: Chest x-ray September 12, 2018. HISTORY: Light headedness and hypotension. TECHNIQUE: Frontal and lateral views of the chest are obtained. FINDINGS: There is chronic parenchymal change without suspicious focal air space opacity, pleural ef fusion, or pneumothorax seen. The cardiac silhouette size is upper limits of normal with atheroscler otic aorta. Cholecystectomy clips are present. There is old fracture deformity left proximal humeru s noted. IMPRESSION: Chronic changes without acute pulmonary process.
[2018-11-23 12:42] VITALS: BP 109/69
[2018-11-23 12:49] VITALS: PULSE 62; RESP 18
== END 2018-11-23 12:40 | disposition home or self-care (01) ==
LOC: EC 09:55
DX: I95.9 Hypotension, unspecified (principal); M25.561 Pain in right knee; M25.571 Pain in right ankle and joints of right foot; M25.562 Pain in left knee; M25.572 Pain in left ankle and joints of left foot; J34.89 Other specified disorders of nose and nasal sinuses; S01.511D Laceration without foreign body of lip, subsequent encounter; S80.02XD Contusion of left knee, subsequent encounter; S80.01XD Contusion of right knee, subsequent encounter; F32.9 Major depressive disorder, single episode, unspecified; F41.9 Anxiety disorder, unspecified; F43.10 Post-traumatic stress disorder, unspecified; J44.9 Chronic obstructive pulmonary disease, unspecified; K21.9 Gastro-esophageal reflux disease without esophagitis; I10 Essential (primary) hypertension; E07.9 Disorder of thyroid, unspecified; Z87.01 Personal history of pneumonia (recurrent); Z85.828 Personal history of other malignant neoplasm of skin; Z86.14 Personal history of Methicillin resistant Staphylococcus aureus infection; Z90.49 Acquired absence of other specified parts of digestive tract; Z98.890 Other specified postprocedural states; Z79.51 Long term (current) use of inhaled steroids; Z79.82 Long term (current) use of aspirin; Z79.890 Hormone replacement therapy; Z79.899 Other long term (current) drug therapy; Z88.1 Allergy status to other antibiotic agents; Z88.5 Allergy status to narcotic agent; Z88.6 Allergy status to analgesic agent; Z88.8 Allergy status to other drugs, medicaments and biological substances; Z91.018 Allergy to other foods; Z91.030 Bee allergy status; W10.9XXA Fall (on) (from) unspecified stairs and steps, initial encounter
CPT/HCPCS: 36415; 93005; 80053; 84484; 85025; 73562; 73610; 71046; 96374; 96361; 99283; J1885

== ENCOUNTER 2018-12-03 10:34 | Emergency (ER) | payer MEDICARE, OTHER ==
[2018-12-03 10:50] VITALS: BP 99/63; PULSE 69; RESP 18; TEMP 98.1
[2018-12-03] MEDS ORDERED: KETOROLAC 30 MG/ML 1 ML VIAL IM STA (11:03)
--- NOTE | 2018-12-03 11:39 | ED ---
General Adult HPI - General Chief complaint: Recheck/Abnormal Lab/Rx Stated complaint: BRUISING FOLLOWING STITCHES Time Seen by Provider: 12/03/18 10:53 Source: patient, RN notes reviewed, old records reviewed Mode of arrival: ambulatory Limitations: no limitations - History of Present Illness Initial comments: Patient is a 68-year-old female who presents emergency department today for evaluation of bruising around her suture site. She had 4 sutures placed on her lower lip. They were placed days ago. Patient states that the suture site is painful but no erythema or significant swelling. She states that she just noted some recent bruising.Patient denies any recent fever, chills, shortness of breath, chest pain, back pain, abdominal pain, nausea vomiting, numbness or tingling, dysuria or hematuria, constipation or diarrhea, headaches or visual changes, or any other current symptoms - Related Data Home Medications Medication Instructions Recorded Confirmed Aspirin EC [Ecotrin Low Dose] 81 mg PO DAILY 04/09/16 11/23/18 Pantoprazole Sodium [Protonix] 40 mg PO BID 04/09/16 11/23/18 EPINEPHrine [Epipen 2-River] 0.3 mg IM ONCE PRN 11/16/16 11/23/18 Fluticasone Nasal [place] [Flonase 1 spray EA NOSTRIL BID 11/16/16 11/23/18 Nasal [place]] Loratadine [Claritin] 10 mg PO DAILY 11/16/16 11/23/18 Methenamine Hippurate [Hiprex] 1 gm PO BID 11/16/16 11/23/18 Montelukast [Singulair] 10 mg PO HS 11/16/16 11/23/18 Nitroglycerin Sl Tabs [Nitrostat] 0.4 mg SUBLINGUAL Q5M PRN 11/16/16 11/23/18 Sucralfate [Carafate] 1 gm PO ACHS 12/13/16 11/23/18 Diazepam [Valium] 5 mg PO BID-W/MEALS 09/16/17 11/23/18 Losartan Potassium 50 mg PO DAILY 09/16/17 11/23/18 DULoxetine HCL [Cymbalta] 60 mg PO BID 04/24/18 11/23/18 Levothyroxine Sodium [Synthroid] 88 mcg PO DAILY 04/24/18 11/23/18 Albuterol Sulfate [Proair Hfa] 2 puff INHALATION RT-Q4H PRN 08/11/18 11/23/18 Banophen 50 mg PO HS 08/11/18 11/23/18 Cetirizine HCl [Zyrtec] 10 mg PO HS 08/11/18 11/23/18 Cyanocobalamin (Vitamin B-12) 1,000 mcg PO QMONTH 08/11/18 11/23/18 [Vitamin B-12] Olopatadine HCl [Pataday] 1 drop BOTH EYES DAILY PRN 08/11/18 11/23/18 buPROPion HCL [Wellbutrin SR] 200 mg PO BID 08/11/18 11/23/18 valACYclovir [Valtrex] 500 mg PO DAILY 08/11/18 11/23/18 Fluticasone Propionate [Flovent 1 puff INHALATION RT-BID 09/12/18 11/23/18 Diskus] Hydrochlorothiazide 12.5 mg PO DAILY 09/12/18 11/23/18 Metoprolol/Hydrochlorothiazide 1 tab PO BID 09/12/18 11/23/18 [Lopressor Hct 50-25 mg Tab] Paliperidone [Invega] 3 mg PO DAILY 09/12/18 11/23/18 Atenolol [Tenormin] 25 mg PO DAILY 11/23/18 11/23/18 Allergies Allergy/AdvReac Type Severity Reaction Status Date / Time carisoprodol [From Soma] Allergy Unknown Verified 12/03/18 10:47 chlorpromazine Allergy Unknown Verified 12/03/18 10:47 [From Thorazine] ciprofloxacin [From Cipro] Allergy Unknown Verified 12/03/18 10:47 clonazepam [From Klonopin] Allergy Unknown Verified 12/03/18 10:47 cyclobenzaprine Allergy Unknown Verified 12/03/18 10:47 [From Flexeril] metoclopramide [From Reglan] Allergy Anaphylaxis Verified 12/03/18 10:47 metronidazole [From Flagyl] Allergy Anaphylaxis Verified 12/03/18 10:47 morphine Allergy Rash/Hives Verified 12/03/18 10:47 naproxen Allergy Unknown Verified 12/03/18 10:47 papaya Allergy Rash/Hives Verified 12/03/18 10:47 prednisone Allergy Anaphylaxis Verified 12/03/18 10:47 prochlorperazine Allergy Anaphylaxis Verified 12/03/18 10:47 [From Compazine] venom-honey bee Allergy Anaphylaxis Verified 12/03/18 10:47 [bee venom (honey bee)] ketorolac [From Toradol] AdvReac Severe Abdominal Verified 12/03/18 10:47 Pain baclofen AdvReac Twitching Verified 12/03/18 10:47 ibuprofen [From Motrin] AdvReac Abdominal Verified 12/03/18 10:47 Pain meperidine [From Demerol] AdvReac Rapid Verified 12/03/18 10:47 Heart Rate Phenothiazines AdvReac Altered Verified 12/03/18 10:47 Mental Status Review of Systems ROS Statement: Those systems with pertinent positive or pertinent negative responses have been documented in the HPI. ROS Other: All systems not noted in ROS Statement are negative. Past Medical History Past Medical History: Asthma, Cancer, COPD, GERD/Reflux, Hypertension, Pneumonia, Thyroid Disorder Additional Past Medical History / Comment(s): shingles, RT BREAST LUMPECTOMY/CANCER, THYROID REMOVE, CATARACTS, BRONCHITIS, MONO TEENAGER, LITE CASE OF POLIO AGE 8, MELANOMA SKIN CANCER REMOVED, History of Any Multi-Drug Resistant Organisms: MRSA Date of last positivie culture/infection: 2009 MDRO Source:: LEFT ULNAR BONE Past Surgical History: Appendectomy, Back Surgery, Cholecystectomy, Orthopedic Surgery Additional Past Surgical History / Comment(s): EYE SX FOR LAZY EYE, SX ON TEAR DUCTS, BACK SURGERY MICRO DISC, LT WRIST BROKEN 9 GALLO HAD 13 Surgeries TO CORRECT, left shoulder and humorous shattered from a fall with 2 surgeries to correct, LAPROSCOPIES- BENIGN TUNOR SIZE OF GRAPFRUIT REMOVED AGE 11 OR 1, RT BREAST BX/LUMPECTOMY,LT PINK FINGER SX TO STRAIGHTEN.MELANOMA SKIN CANCER REMOVED. Past Anesthesia/Blood Transfusion Reactions: No Reported Reaction Additional Past Anesthesia/Blood Transfusion Reaction / Comment(s): CLAUSTERPHOBIA Past Psychological History: Anxiety, Depression, PTSD Smoking Status: Never smoker Past Alcohol Use History: Occasional Past Drug Use History: None Reported - Past Family History Mother Family Medical History: Asthma Additional Family Medical History / Comment(s): ETOH/SMOKER Father Family Medical History: Cancer, Liver Disease Additional Family Medical History / Comment(s): ESOPHOGEAL CANCER, ETOH General Exam - General Exam Comments Initial Comments: 5-year-old female. Alert and oriented. No distress. Limitations: no limitations General appearance: alert, in no apparent distress Head exam: Present: atraumatic, normocephalic, normal inspection Eye exam: Present: normal appearance, PERRL, EOMI. Absent: scleral icterus, conjunctival injection, periorbital swelling ENT exam: Present: normal exam, mucous membranes moist, other (Should have 4 sutures over the lower lip. No significant bruising noted. Evidence of scar tissue on the lower inner lip.) Neck exam: Present: normal inspection. Absent: tenderness, meningismus, lympha denopathy Respiratory exam: Present: normal lung sounds bilaterally. Absent: respiratory distress, wheezes, rales, rhonchi, stridor Cardiovascular Exam: Present: regular rate, normal rhythm, normal heart sounds. Absent: systolic murmur, diastolic murmur, rubs, gallop, clicks GI/Abdominal exam: Present: soft, normal bowel sounds. Absent: distended, tenderness, guarding, rebound, rigid Extremities exam: Present: normal inspection, full ROM, normal capillary refill. Absent: tenderness, pedal edema, joint swelling, calf tenderness Back exam: Present: normal inspection Psychiatric exam: Present: normal affect, normal mood Course Vital Signs 12/03/18 10:48 Temperature 98.1 F Pulse Rate 69 Respiratory 18 Rate Blood Pressure 99/63 O2 Sat by Pulse 97 Oximetry Medical Decision Making - Medical Decision Making 5-year-old female presents for suture removal concern for bruising around the suture site. She had 4 sutures easily removed with scalpel and sutures over the lower lip. He laceration site appeared well. There is minimal bruising noted. Discussed this is normal after the trauma or fall causing a laceration. I discussed that she should follow-up with her primary care doctor. All questions were answered return parameters were discussed. Disposition Clinical Impression: Visit for suture removal, Lip swelling Disposition: HOME SELF-CARE Condition: Good Instructions (If sedation given, give patient instructions): Stitches Removal (ED) Additional Instructions: Apply ice over the area of swelling. Keep the area clean and dry. Follow-up with your primary care doctor. Is patient prescribed a controlled substance at d/c from ED?: No Referrals: Julito Pina MD [Primary Care Provider] - 1-2 days Time of Disposition: 11:38
== END 2018-12-03 11:52 | disposition home or self-care (01) ==
LOC: EC 10:34
DX: Z48.02 Encounter for removal of sutures (principal); R22.0 Localized swelling, mass and lump, head; L90.5 Scar conditions and fibrosis of skin; J44.9 Chronic obstructive pulmonary disease, unspecified; I10 Essential (primary) hypertension; K21.9 Gastro-esophageal reflux disease without esophagitis; F32.9 Major depressive disorder, single episode, unspecified; F41.9 Anxiety disorder, unspecified; Z88.1 Allergy status to other antibiotic agents; Z88.5 Allergy status to narcotic agent; Z88.6 Allergy status to analgesic agent; Z88.8 Allergy status to other drugs, medicaments and biological substances; Z91.018 Allergy to other foods; Z91.030 Bee allergy status; Z79.51 Long term (current) use of inhaled steroids; Z79.82 Long term (current) use of aspirin; Z79.890 Hormone replacement therapy; Z79.891 Long term (current) use of opiate analgesic; Z79.899 Other long term (current) drug therapy; E89.0 Postprocedural hypothyroidism; Z86.14 Personal history of Methicillin resistant Staphylococcus aureus infection; Z85.820 Personal history of malignant melanoma of skin; Z85.3 Personal history of malignant neoplasm of breast; Z98.890 Other specified postprocedural states
CPT/HCPCS: 99283; 96372; J1885

== ENCOUNTER 2019-01-14 07:51 | Emergency (ER) | payer MEDICARE, OTHER ==
[2019-01-14 07:59] VITALS: BP 108/72; PULSE 73; RESP 18; TEMP 98.2
[2019-01-14] MEDS ORDERED: KETOROLAC 60 MG/2 ML VIAL IM STA (08:10)
--- NOTE | 2019-01-14 08:18 | ED ---
General Adult HPI - General Chief complaint: Extremity Injury, Upper Stated complaint: LEFT SHOULDER PAIN AND WEAKNESS AFTER SHINGLE SHOT Time Seen by Provider: 01/14/19 07:55 Source: patient, RN notes reviewed Mode of arrival: ambulatory Limitations: no limitations - History of Present Illness Initial comments: This is a 68-year-old female presents emergency Department complaining of pain radiating down her left arm for 6 weeks. Patient states it hurts and it increases with movement. Patient states it started when she had her shingles shot 6 weeks ago and hasn't let up. Patient states at no time has 0 pain since this. Patient states sometimes the pain increases if she moves her neck as well. Patient denies any actual weakness. Patient states she's having difficulty lifting things because it hurt so much not because she can't do it. Patient denies any numbness. Patient denies any recent fever chills. Patient denies any injury recently. Patient denies any chest pain difficult breathing shortness of breath. Patient denies any diaphoretic episodes. Patient denies any redness rashes or lesions near or around the area. - Related Data Home Medications Medication Instructions Recorded Confirmed Aspirin EC [Ecotrin Low Dose] 81 mg PO DAILY 04/09/16 11/23/18 Pantoprazole Sodium [Protonix] 40 mg PO BID 04/09/16 11/23/18 EPINEPHrine [Epipen 2-River] 0.3 mg IM ONCE PRN 11/16/16 11/23/18 Fluticasone Nasal [place] [Flonase 1 spray EA NOSTRIL BID 11/16/16 11/23/18 Nasal [place]] Loratadine [Claritin] 10 mg PO DAILY 11/16/16 11/23/18 Methenamine Hippurate [Hiprex] 1 gm PO BID 11/16/16 11/23/18 Montelukast [Singulair] 10 mg PO HS 11/16/16 11/23/18 Nitroglycerin Sl Tabs [Nitrostat] 0.4 mg SUBLINGUAL Q5M PRN 11/16/16 11/23/18 Sucralfate [Carafate] 1 gm PO ACHS 12/13/16 11/23/18 Diazepam [Valium] 5 mg PO BID-W/MEALS 09/16/17 11/23/18 Losartan Potassium 50 mg PO DAILY 09/16/17 11/23/18 DULoxetine HCL [Cymbalta] 60 mg PO BID 04/24/18 11/23/18 Levothyroxine Sodium [Synthroid] 88 mcg PO DAILY 04/24/18 11/23/18 Albuterol Sulfate [Proair Hfa] 2 puff INHALATION RT-Q4H PRN 08/11/18 11/23/18 Banophen 50 mg PO HS 08/11/18 11/23/18 Cetirizine HCl [Zyrtec] 10 mg PO HS 08/11/18 11/23/18 Cyanocobalamin (Vitamin B-12) 1,000 mcg PO QMONTH 08/11/18 11/23/18 [Vitamin B-12] Olopatadine HCl [Pataday] 1 drop BOTH EYES DAILY PRN 08/11/18 11/23/18 buPROPion HCL [Wellbutrin SR] 200 mg PO BID 08/11/18 11/23/18 valACYclovir [Valtrex] 500 mg PO DAILY 08/11/18 11/23/18 Fluticasone Propionate [Flovent 1 puff INHALATION RT-BID 09/12/18 11/23/18 Diskus] Hydrochlorothiazide 12.5 mg PO DAILY 09/12/18 11/23/18 Metoprolol/Hydrochlorothiazide 1 tab PO BID 09/12/18 11/23/18 [Lopressor Hct 50-25 mg Tab] Paliperidone [Invega] 3 mg PO DAILY 09/12/18 11/23/18 Atenolol [Tenormin] 25 mg PO DAILY 11/23/18 11/23/18 Allergies Allergy/AdvReac Type Severity Reaction Status Date / Time carisoprodol [From Soma] Allergy Unknown Verified 01/14/19 07:59 chlorpromazine Allergy Unknown Verified 01/14/19 07:59 [From Thorazine] ciprofloxacin [From Cipro] Allergy Unknown Verified 01/14/19 07:59 clonazepam [From Klonopin] Allergy Unknown Verified 01/14/19 07:59 cyclobenzaprine Allergy Unknown Verified 01/14/19 07:59 [From Flexeril] metoclopramide [From Reglan] Allergy Anaphylaxis Verified 01/14/19 07:59 metronidazole [From Flagyl] Allergy Anaphylaxis Verified 01/14/19 07:59 morphine Allergy Rash/Hives Verified 01/14/19 07:59 naproxen Allergy Unknown Verified 01/14/19 07:59 papaya Allergy Rash/Hives Verified 01/14/19 07:59 prednisone Allergy Anaphylaxis Verified 01/14/19 07:59 prochlorperazine Allergy Anaphylaxis Verified 01/14/19 07:59 [From Compazine] venom-honey bee Allergy Anaphylaxis Verified 01/14/19 07:59 [bee venom (honey bee)] ketorolac [From Toradol] AdvReac Severe Abdominal Verified 01/14/19 07:59 Pain baclofen AdvReac Twitching Verified 01/14/19 07:59 buspirone [From BuSpar] AdvReac Confusion Verified 01/14/19 08:00 ibuprofen [From Motrin] AdvReac Abdominal Verified 01/14/19 07:59 Pain meperidine [From Demerol] AdvReac Rapid Verified 01/14/19 07:59 Heart Rate Phenothiazines AdvReac Altered Verified 01/14/19 07:59 Mental Status Review of Systems ROS Statement: Those systems with pertinent positive or pertinent negative responses have been documented in the HPI. ROS Other: All systems not noted in ROS Statement are negative. Past Medical History Past Medical History: Asthma, Cancer, COPD, GERD/Reflux, Hypertension, Pneumonia, Thyroid Disorder Additional Past Medical History / Comment(s): shingles, RT BREAST LUMPECTOMY/CANCER, THYROID REMOVE, CATARACTS, BRONCHITIS, MONO TEENAGER, LITE CASE OF POLIO AGE 8, MELANOMA SKIN CANCER REMOVED, History of Any Multi-Drug Resistant Organisms: MRSA Date of last positivie culture/infection: 2009 MDRO Source:: LEFT ULNAR BONE Past Surgical History: Appendectomy, Back Surgery, Cholecystectomy, Orthopedic Surgery Additional Past Surgical History / Comment(s): EYE SX FOR LAZY EYE, SX ON TEAR DUCTS, BACK SURGERY MICRO DISC, LT WRIST BROKEN 7 GALLO HAD 13 Surgeries TO CORRECT, left shoulder and humorous shattered from a fall with 2 surgeries to correct, LAPROSCOPIES- BENIGN TUNOR SIZE OF GRAPFRUIT REMOVED AGE 11 OR 1, RT BREAST BX/LUMPECTOMY,LT PINK FINGER SX TO STRAIGHTEN.MELANOMA SKIN CANCER REMOVED. Past Anesthesia/Blood Transfusion Reactions: No Reported Reaction Additional Past Anesthesia/Blood Transfusion Reaction / Comment(s): CLAUSTERPHOBIA Past Psychological History: Anxiety, Depression, PTSD Smoking Status: Never smoker Past Alcohol Use History: Occasional Past Drug Use History: None Reported - Past Family History Mother Family Medical History: Asthma Additional Family Medical History / Comment(s): ETOH/SMOKER Father Family Medical History: Cancer, Liver Disease Additional Family Medical History / Comment(s): ESOPHOGEAL CANCER, ETOH General Exam - General Exam Comments Initial Comments: GENERAL: Patient is well-developed and well-nourished. Patient is nontoxic and well- hydrated and is in no acute distress. ENT: Neck is soft and supple. No significant lymphadenopathy is noted. Oropharynx is clear. Moist mucous membranes. Neck has full range of motion without eliciting any pain. EYES: The sclera were anicteric and conjunctiva were pink and moist. Extraocular movements were intact and pupils were equal round and reactive to light. Eyelids were unremarkable. PULMONARY: Unlabored respirations. Good breath sounds bilaterally. No audible rales rhonchi or wheezing was noted. CARDIOVASCULAR: There is a regular rate and rhythm without any murmurs gallops or rubs. ABDOMEN: Soft and nontender with normal bowel sounds. SKIN: Skin is clear with no lesions or rashes and otherwise unremarkable. NEUROLOGIC: Patient is alert and oriented x3. Cranial nerves II through XII are grossly intact. Motor and sensory are also intact. Normal speech, volume and content. Symmetrical smile. MUSCULOSKELETAL: Normal extremities with adequate strength and full range of motion. Palpating the patient's tricep reproduce the pain. LYMPHATICS: No significant lymphadenopathy is noted PSYCHIATRIC: Normal psychiatric evaluation. Limitations: no limitations Course Vital Signs 01/14/19 07:54 Temperature 98.2 F Pulse Rate 73 Respiratory 18 Rate Blood Pressure 108/72 O2 Sat by Pulse 100 Oximetry Medical Decision Making - Medical Decision Making Patient requested a shot of Dilaudid initially entered the room because she states she is only been taking one [place] a day. X-ray shows no acute abnormality. Disposition Clinical Impression: Chronic arm pain Disposition: HOME SELF-CARE Condition: Good Instructions (If sedation given, give patient instructions): Arm Pain (ED) Is patient prescribed a controlled substance at d/c from ED?: No Referrals: Julito Pina MD [Primary Care Provider] - 1-2 days Time of Disposition: 08:31
--- NOTE | 2019-01-14 08:49 | XR ---
EXAMINATION TYPE: XR humerus LT DATE OF EXAM: 01/14/2019 CLINICAL HISTORY: Left upper extremity pain radiating down the patient's right arm. TECHNIQUE: Two views of the left humerus are obtained. COMPARISON: 08/11/2018 FINDINGS: There is no acute fracture or dislocation seen in the left humerus. Old fracture deformity of the left proximal humerus is noted. Calcified, centrally lucent possible phlebolith overlies the dorsal lateral mid shaft of the left humerus in the subcutaneous tissues measuring 9 mm. Much less li agnieszka this could represent a foreign body. Radial surgical fixation is partially visualized. These oss eous demineralization is seen. The left shoulder and elbow joints appear aligned with mild degenerati ve change. IMPRESSION: No acute fracture or dislocation is evident in the left humerus. 3 mm density in the dylon cain lateral subcutaneous tissues appears as a possible phlebolith. However correlate with point tende rness is recommended to ensure this does not represent a small radiopaque foreign body.
== END 2019-01-14 08:48 | disposition home or self-care (01) ==
LOC: EC 07:51
DX: M25.512 Pain in left shoulder (principal); G89.29 Other chronic pain; J44.9 Chronic obstructive pulmonary disease, unspecified; K21.9 Gastro-esophageal reflux disease without esophagitis; I10 Essential (primary) hypertension; F32.9 Major depressive disorder, single episode, unspecified; E07.9 Disorder of thyroid, unspecified; Z79.82 Long term (current) use of aspirin; Z79.899 Other long term (current) drug therapy; Z79.890 Hormone replacement therapy; Z88.8 Allergy status to other drugs, medicaments and biological substances; Z88.1 Allergy status to other antibiotic agents; Z88.5 Allergy status to narcotic agent; Z88.6 Allergy status to analgesic agent; Z91.018 Allergy to other foods; Z91.030 Bee allergy status; Z98.42 Cataract extraction status, left eye; Z85.820 Personal history of malignant melanoma of skin; Z86.14 Personal history of Methicillin resistant Staphylococcus aureus infection; Z98.41 Cataract extraction status, right eye
CPT/HCPCS: 73060; 99283; 96372; J1885

== ENCOUNTER 2019-03-21 11:44 | Emergency (ER) | payer MEDICARE, OTHER ==
--- NOTE | 2019-03-21 12:21 | ED ---
General Adult HPI - General Chief complaint: Upper Respiratory Infection Stated complaint: Cough,Chest pain Time Seen by Provider: 03/21/19 11:57 Source: patient Mode of arrival: ambulatory Limitations: no limitations - History of Present Illness Initial comments: Dictation was produced using [id number] dictation software. please excuse any grammatical, word or spelling errors. Chief Complaint: 68-year-old female with past medical history of asthma, pneumonia presents with cough. History of Present Illness: As a 68-year-old female she's been having a cough approximately 3 weeks. Patient assumes that her cough is secondary to virus. CT today because she wants to be evaluated for cough and possibly get cough medications. Patient states she's been exposed to her clark driver who had respiratory symptoms. She denies any chest pain. Denies any shortness of breath. Denies any lower extremity symptoms. No history of blood clots. Since that her cough is nonproductive. The ROS documented in this emergency department record has been reviewed and confirmed by me. Those systems with pertinent positive or negative responses have been documented in the HPI. All other systems are other negative and/or noncontributory. PHYSICAL EXAM: General Impression: Alert and oriented x3, not in acute distress HEENT: Normocephalic atraumatic, extra-ocular movements intact, pupils equal and reactive to light bilaterally, mucous membranes moist. Cardiovascular: Heart regular rate and rhythm, S1&S2 audible, no murmurs, rubs or gallops Chest: Lungs clear to auscultation bilaterally, no rhonchi, no wheeze, no rales Abdomen: Bowel sounds present, abdomen soft, non-tender, non-distended, no organomegaly Musculoskeletal: Pulses present and equal in all extremities, no peripheral edema Motor: no focal deficits noted Neurological: CN II-XII grossly intact, no focal motor or sensory deficits noted Skin: Intact with no visualized rashes Psych: Normal affect and mood ED course: 68 y Old female with chronic cough for 3 weeks. Patient's symptoms likely secondary to post viral cough. He is told that this cough is usually chetan f-limiting can last for several weeks. Vital signs upon arrival are within acceptable limits. The influence test negative. Chest x-ray is unremarkable. Patient's well-appearing. Robbins provided with Phenergan with codeine for symptoms. She is counseled on using these medications sparingly and that the cough reflex is important in preventing further sequela. Advised to follow-up with primary care physician upon discharge. - Related Data Home Medications Medication Instructions Recorded Confirmed Aspirin EC [Ecotrin Low Dose] 81 mg PO DAILY 04/09/16 03/21/19 Pantoprazole Sodium [Protonix] 40 mg PO BID 04/09/16 03/21/19 EPINEPHrine [Epipen 2-River] 0.3 mg IM ONCE PRN 11/16/16 03/21/19 Loratadine [Claritin] 10 mg PO DAILY 11/16/16 03/21/19 Methenamine Hippurate [Hiprex] 1 gm PO BID 11/16/16 03/21/19 Montelukast [Singulair] 10 mg PO HS 11/16/16 03/21/19 Nitroglycerin Sl Tabs [Nitrostat] 0.4 mg SUBLINGUAL Q5M PRN 11/16/16 03/21/19 Sucralfate [Carafate] 1 gm PO ACHS 12/13/16 03/21/19 Diazepam [Valium] 5 mg PO DAILY 09/16/17 03/21/19 Losartan Potassium 50 mg PO DAILY 09/16/17 03/21/19 DULoxetine HCL [Cymbalta] 60 mg PO BID 04/24/18 03/21/19 Levothyroxine Sodium [Synthroid] 88 mcg PO DAILY 04/24/18 03/21/19 Olopatadine HCl [Pataday] 1 drop BOTH EYES DAILY PRN 08/11/18 03/21/19 buPROPion HCL [Wellbutrin SR] 200 mg PO BID 08/11/18 03/21/19 valACYclovir [Valtrex] 500 mg PO DAILY 08/11/18 03/21/19 Hydrochlorothiazide 12.5 mg PO DAILY 09/12/18 03/21/19 Ergocalciferol [Vitamin D2] 50,000 unit PO FR 01/14/19 03/21/19 HYDROcodone/APAP 10-325MG [[place] 1 tab PO DAILY 01/14/19 03/21/19 10-325] Lidocaine 5% Oint [Xylocaine 5% 1 applic TOPICAL QID PRN 01/14/19 03/21/19 Oint] Metoprolol Tartrate [Lopressor] 25 mg PO BID 01/14/19 03/21/19 Paliperidone [Invega] 1.5 mg PO DAILY 01/14/19 03/21/19 Topiramate [Topamax] 50 mg PO BID 01/14/19 03/21/19 Albuterol Sulfate [Proair Hfa] 1 - 2 puff INHALATION RT-Q4H PRN 03/21/19 03/21/19 Aspirin/Acetaminophen/Caffeine 1 - 2 tab PO DAILY PRN 03/21/19 03/21/19 [Excedrin Migraine Caplet] Cyanocobalamin [Vitamin B-12 1,000 mcg SQ Q28D 03/21/19 03/21/19 Injection] Fluticasone Nasal [place] [Flonase 1 spray EA NOSTRIL DAILY 03/21/19 03/21/19 Nasal [place]] Fluticasone Propionate [Flovent 1 puff INHALATION RT-BID 03/21/19 03/21/19 Diskus] Hydrocortisone Cream 1 applic TOPICAL BID 03/21/19 03/21/19 [Hydrocortisone 2.5% Cream] diphenhydrAMINE [Benadryl] 50 mg PO DAILY 03/21/19 03/21/19 Previous Rx's Medication Instructions Recorded Promethaz-Cod 6.25-10 mg/5 ml 5 ml PO Q6HR PRN #60 ml 03/21/19 [Phenergan with Codeine] Allergies Allergy/AdvReac Type Severity Reaction Status Date / Time buprenorphine [From [place]] Allergy pain Verified 03/21/19 12:59 carisoprodol [From Soma] Allergy Unknown Verified 03/21/19 12:59 chlorpromazine Allergy Unknown Verified 03/21/19 12:59 [From Thorazine] ciprofloxacin [From Cipro] Allergy Unknown Verified 03/21/19 12:59 clonazepam [From Klonopin] Allergy Unknown Verified 03/21/19 12:59 cyclobenzaprine Allergy Unknown Verified 03/21/19 12:59 [From Flexeril] metoclopramide [From Reglan] Allergy Anaphylaxis Verified 03/21/19 12:59 metronidazole [From Flagyl] Allergy Anaphylaxis Verified 03/21/19 12:59 morphine Allergy Rash/Hives Verified 03/21/19 12:59 naproxen Allergy Unknown Verified 03/21/19 12:59 papaya Allergy Rash/Hives Verified 03/21/19 12:59 prednisone Allergy Anaphylaxis Verified 03/21/19 12:59 prochlorperazine Allergy Anaphylaxis Verified 03/21/19 12:59 [From Compazine] red dye Allergy Rash/Hives Verified 03/21/19 12:59 venom-honey bee Allergy Anaphylaxis Verified 03/21/19 12:59 [bee venom (honey bee)] ketorolac [From Toradol] AdvReac Severe Abdominal Verified 03/21/19 12:59 Pain baclofen AdvReac Twitching Verified 03/21/19 12:59 buspirone [From BuSpar] AdvReac Confusion Verified 03/21/19 12:59 ibuprofen [From Motrin] AdvReac Abdominal Verified 03/21/19 12:59 Pain meperidine [From Demerol] AdvReac Rapid Verified 03/21/19 12:59 Heart Rate Phenothiazines AdvReac Altered Verified 03/21/19 12:59 Mental Status Review of Systems ROS Statement: Those systems with pertinent positive or pertinent negative responses have been documented in the HPI. ROS Other: All systems not noted in ROS Statement are negative. Past Medical History Past Medical History: Asthma, Cancer, COPD, GERD/Reflux, Hypertension, Pneumonia, Thyroid Disorder Additional Past Medical History / Comment(s): shingles, RT BREAST LUMPECTOMY/CANCER, THYROID REMOVE, CATARACTS, BRONCHITIS, MONO TEENAGER, LITE CASE OF POLIO AGE 8, MELANOMA SKIN CANCER REMOVED, History of Any Multi-Drug Resistant Organisms: MRSA Date of last positivie culture/infection: 2009 MDRO Source:: LEFT ULNAR BONE Past Surgical History: Appendectomy, Back Surgery, Cholecystectomy, Orthopedic Surgery Additional Past Surgical History / Comment(s): EYE SX FOR LAZY EYE, SX ON TEAR DUCTS, BACK SURGERY MICRO DISC, LT WRIST BROKEN 9 GALLO HAD 13 Surgeries TO CORRECT, left shoulder and humorous shattered from a fall with 2 surgeries to correct, LAPROSCOPIES- BENIGN TUNOR SIZE OF GRAPFRUIT REMOVED AGE 11 OR 1, RT BREAST BX/LUMPECTOMY,LT PINK FINGER SX TO STRAIGHTEN.MELANOMA SKIN CANCER REMOVED. Past Anesthesia/Blood Transfusion Reactions: No Reported Reaction Additional Past Anesthesia/Blood Transfusion Reaction / Comment(s): CLAUSTERPHOBIA Past Psychological History: Anxiety, Depression, PTSD Smoking Status: Never smoker Past Alcohol Use History: Occasional Past Drug Use History: None Reported - Past Family History Mother Family Medical History: Asthma Additional Family Medical History / Comment(s): ETOH/SMOKER Father Family Medical History: Cancer, Liver Disease Additional Family Medical History / Comment(s): ESOPHOGEAL CANCER, ETOH General Exam Limitations: no limitations Course Vital Signs 03/21/19 11:51 Temperature 98.9 F Pulse Rate 82 Respiratory 16 Rate Blood Pressure 137/71 O2 Sat by Pulse 97 Oximetry Medical Decision Making - Lab Data Lab Results 03/21/19 Range/Units 12:19 Influenza Type A RNA Not Detected (Not Detectd) Influenza Type B (PCR) Not Detected (Not Detectd) Disposition Clinical Impression: Cough Disposition: HOME SELF-CARE Condition: Good Instructions (If sedation given, give patient instructions): Upper Respiratory Infection (ED) Prescriptions: Promethaz-Cod 6.25-10 mg/5 ml [Phenergan with Codeine] 5 ml PO Q6HR PRN #60 ml PRN Reason: Cough Is patient prescribed a controlled substance at d/c from ED?: Yes If prescribed controlled substance>3 days was MAPS reviewed?: Prescribed <3 Days Referrals: Julito Pina MD [Primary Care Provider] - 1-2 days Time of Disposition: 13:15
--- NOTE | 2019-03-21 12:41 | XR ---
EXAMINATION TYPE: XR chest 2V DATE OF EXAM: 03/21/2019 COMPARISON: 11/23/2018 HISTORY: Cough and chest pain for 3 weeks TECHNIQUE: Frontal and lateral views of the chest are obtained. FINDINGS: There is no focal air space opacity, pleural effusion, or pneumothorax seen. The cardiac silhouette size is within normal limits. The osseous structures are intact. Mild multilevel degener ative changes of the thoracic spine. Cholecystectomy clips are seen. Old fracture deformity of the le ft proximal humerus is partially visualized. IMPRESSION: No acute cardiopulmonary process.
[2019-03-21 13:27] VITALS: BP 128/56; PULSE 68; RESP 18; TEMP 98
== END 2019-03-21 13:26 | disposition home or self-care (01) ==
LOC: EC 11:44
DX: R05 Cough (principal); R07.9 Chest pain, unspecified; J44.9 Chronic obstructive pulmonary disease, unspecified; K21.9 Gastro-esophageal reflux disease without esophagitis; I10 Essential (primary) hypertension; E07.9 Disorder of thyroid, unspecified; F41.9 Anxiety disorder, unspecified; F32.9 Major depressive disorder, single episode, unspecified; F43.10 Post-traumatic stress disorder, unspecified; Z87.01 Personal history of pneumonia (recurrent); Z85.820 Personal history of malignant melanoma of skin; Z85.3 Personal history of malignant neoplasm of breast; Z86.14 Personal history of Methicillin resistant Staphylococcus aureus infection; Z82.5 Family history of asthma and other chronic lower respiratory diseases; Z79.82 Long term (current) use of aspirin; Z79.890 Hormone replacement therapy; Z79.891 Long term (current) use of opiate analgesic; Z79.51 Long term (current) use of inhaled steroids; Z79.52 Long term (current) use of systemic steroids; Z79.899 Other long term (current) drug therapy; Z88.8 Allergy status to other drugs, medicaments and biological substances; Z88.1 Allergy status to other antibiotic agents; Z88.5 Allergy status to narcotic agent; Z88.6 Allergy status to analgesic agent; Z91.018 Allergy to other foods; Z91.048 Other nonmedicinal substance allergy status; Z91.030 Bee allergy status
CPT/HCPCS: 71046; 87502; 99283

== ENCOUNTER 2019-10-02 13:50 | Emergency (ER) | payer MEDICARE, OTHER ==
[2019-10-02 14:00] VITALS: TEMP 98.1
--- NOTE | 2019-10-02 15:00 | XR ---
EXAMINATION TYPE: XR forearm LT DATE OF EXAM: 10/02/2019 CLINICAL HISTORY: Left forearm pain TECHNIQUE: Two views of the left forearm are obtained. COMPARISON: None. FINDINGS: There is no acute fracture or dislocation seen in the left radius or ulna. Chronic nonunit ed fracture deformity is seen of the distal diaphysis of the left ulna similar to the prior of 018. Surgical fixation plate overlies the left radius. Osseous demineralization is seen particularly of the distal radius and ulna. Moderate degenerative change of the first carpometacarpal joint. Narro wing of the radiocarpal joint is also seen. Alignment of the forearm is similar to the prior of 2017. The left elbow and wrist joints appear within normal limits. The overlying soft tissue appears within normal limits. IMPRESSION: There is no acute fracture or dislocation seen in the left radius or ulna. Postsurgical and posttraumatic change of the left radius and ulna appear chronic similar to 08/01/2017. Radiocarpal arthropathy, first carpometacarpal arthropathy and diffuse osseous demineralization are also seen.
--- NOTE | 2019-10-02 15:47 | CT ---
EXAMINATION TYPE: CT shoulder RT wo con DATE OF EXAM: 10/02/2019 COMPARISON: No plain film supplied for correlation HISTORY: Right shoulder pain x1 year CT DLP: 349.1 mGycm Automated exposure control for dose reduction was used. Helical imaging through the shoulder. FINDINGS: There is no fracture or dislocation. Acromioclavicular joint intact. Glenohumeral joint is normal. Pr obable pseudocyst formation present within the anterior humeral head. Right lung apex as visualized i s normal. There is a distal acromial spur. IMPRESSION: Correlate for impingement. Shoulder MRI may be of benefit.
--- NOTE | 2019-10-02 16:32 | ED ---
General Adult HPI - General Chief complaint: Extremity Injury, Upper Stated complaint: messed up rotary Time Seen by Provider: 10/02/19 14:06 Source: patient, RN notes reviewed, old records reviewed Mode of arrival: ambulatory Limitations: no limitations - History of Present Illness Initial comments: 69-year-old female patient presents to ED with chief complaint of requested imaging on her shoulder. Patient had a fall last November since then has been having right shoulder pain as well as left forearm pain. Patient has been following up with Dr. Plunkett out of [facility]. She states that he requested that she go to the emergency department today and have a CAT scan of her right shoulder as well as an x-ray of her left wrist. They're having a teleconference tomorrow and he wants to be able to review these results. States that the pain in her right shoulder has been since the fall states is worse with range of motion, denies any other complaints at this time. Systemic: Pt denies fatigue, fever/chills, rash. Pt denies weakness, night sweats, weight loss. Neuro: Pt denies headache, visual disturbances, syncope or pre-syncope. HEENT: Pt denies ocular discharge or irritation, otalgia, rhinorrhea, pharyngitis or notable lymphadenopathy. Cardiopulmonary: Pt denies chest pain, SOB, heart palpitations, dyspnea on exertion. Abdominal/GI: Pt denies abdominal pain, n/v/d. : Pt denies dysuria, burning w/ urination, frequency/urgency. Denies new onset urinary or bowel incontinence. MSK: Pt denies myalgia, loss of strength or function in extremities. Neuro: Pt denies new onset weakness, paresthesias. - Related Data Home Medications Medication Instructions Recorded Confirmed Aspirin EC [Ecotrin Low Dose] 81 mg PO DAILY 04/09/16 03/21/19 Pantoprazole Sodium [Protonix] 40 mg PO BID 04/09/16 03/21/19 EPINEPHrine [Epipen 2-River] 0.3 mg IM ONCE PRN 11/16/16 03/21/19 Loratadine [Claritin] 10 mg PO DAILY 11/16/16 03/21/19 Methenamine Hippurate [Hiprex] 1 gm PO BID 11/16/16 03/21/19 Montelukast [Singulair] 10 mg PO HS 11/16/16 03/21/19 Nitroglycerin Sl Tabs [Nitrostat] 0.4 mg SUBLINGUAL Q5M PRN 11/16/16 03/21/19 Sucralfate [Carafate] 1 gm PO ACHS 12/13/16 03/21/19 Diazepam [Valium] 5 mg PO DAILY 09/16/17 03/21/19 Losartan Potassium 50 mg PO DAILY 09/16/17 03/21/19 DULoxetine HCL [Cymbalta] 60 mg PO BID 04/24/18 03/21/19 Levothyroxine Sodium [Synthroid] 88 mcg PO DAILY 04/24/18 03/21/19 Olopatadine HCl [Pataday] 1 drop BOTH EYES DAILY PRN 08/11/18 03/21/19 buPROPion HCL [Wellbutrin SR] 200 mg PO BID 08/11/18 03/21/19 valACYclovir [Valtrex] 500 mg PO DAILY 08/11/18 03/21/19 Hydrochlorothiazide 12.5 mg PO DAILY 09/12/18 03/21/19 Ergocalciferol [Vitamin D2] 50,000 unit PO FR 01/14/19 03/21/19 HYDROcodone/APAP 10-325MG [[place] 1 tab PO DAILY 01/14/19 03/21/19 10-325] Lidocaine 5% Oint [Xylocaine 5% 1 applic TOPICAL QID PRN 01/14/19 03/21/19 Oint] Metoprolol Tartrate [Lopressor] 25 mg PO BID 01/14/19 03/21/19 Paliperidone [Invega] 1.5 mg PO DAILY 01/14/19 03/21/19 Topiramate [Topamax] 50 mg PO BID 01/14/19 03/21/19 Albuterol Sulfate [Proair Hfa] 1 - 2 puff INHALATION RT-Q4H PRN 03/21/19 03/21/19 Aspirin/Acetaminophen/Caffeine 1 - 2 tab PO DAILY PRN 03/21/19 03/21/19 [Excedrin Migraine Caplet] Cyanocobalamin [Vitamin B-12 1,000 mcg SQ Q28D 03/21/19 03/21/19 Injection] Fluticasone Nasal [place] [Flonase 1 spray EA NOSTRIL DAILY 03/21/19 03/21/19 Nasal [place]] Fluticasone Propionate [Flovent 1 puff INHALATION RT-BID 03/21/19 03/21/19 Diskus] Hydrocortisone Cream 1 applic TOPICAL BID 03/21/19 03/21/19 [Hydrocortisone 2.5% Cream] diphenhydrAMINE [Benadryl] 50 mg PO DAILY 03/21/19 03/21/19 Previous Rx's Medication Instructions Recorded Promethaz-Cod 6.25-10 mg/5 ml 5 ml PO Q6HR PRN #60 ml 03/21/19 [Phenergan with Codeine] Allergies Allergy/AdvReac Type Severity Reaction Status Date / Time buprenorphine [From Butrans] Allergy pain Verified 10/02/19 14:00 carisoprodol [From Soma] Allergy Unknown Verified 10/02/19 14:00 chlorpromazine Allergy Unknown Verified 10/02/19 14:00 [From Thorazine] ciprofloxacin [From Cipro] Allergy Unknown Verified 10/02/19 14:00 clonazepam [From Klonopin] Allergy Unknown Verified 10/02/19 14:00 cyclobenzaprine Allergy Unknown Verified 10/02/19 14:00 [From Flexeril] metoclopramide [From Reglan] Allergy Anaphylaxis Verified 10/02/19 14:00 metronidazole [From Flagyl] Allergy Anaphylaxis Verified 10/02/19 14:00 morphine Allergy Rash/Hives Verified 10/02/19 14:00 naproxen Allergy Unknown Verified 10/02/19 14:00 papaya Allergy Rash/Hives Verified 10/02/19 14:00 prednisone Allergy Anaphylaxis Verified 10/02/19 14:00 prochlorperazine Allergy Anaphylaxis Verified 10/02/19 14:00 [From Compazine] red dye Allergy Rash/Hives Verified 10/02/19 14:00 venom-honey bee Allergy Anaphylaxis Verified 10/02/19 14:00 [bee venom (honey bee)] ketorolac [From Toradol] AdvReac Severe Abdominal Verified 10/02/19 14:00 Pain baclofen AdvReac Twitching Verified 10/02/19 14:00 buspirone [From BuSpar] AdvReac Confusion Verified 10/02/19 14:00 ibuprofen [From Motrin] AdvReac Abdominal Verified 10/02/19 14:00 Pain meperidine [From Demerol] AdvReac Rapid Verified 10/02/19 14:00 Heart Rate Phenothiazines AdvReac Altered Verified 10/02/19 14:00 Mental Status Review of Systems ROS Statement: Those systems with pertinent positive or pertinent negative responses have been documented in the HPI. ROS Other: All systems not noted in ROS Statement are negative. Past Medical History Past Medical History: Asthma, Cancer, COPD, GERD/Reflux, Hypertension, P neumonia, Thyroid Disorder Additional Past Medical History / Comment(s): shingles, RT BREAST LUMPECTOMY/CANCER, THYROID REMOVE, CATARACTS, BRONCHITIS, MONO TEENAGER, LITE CASE OF POLIO AGE 8, MELANOMA SKIN CANCER REMOVED, History of Any Multi-Drug Resistant Organisms: MRSA Date of last positivie culture/infection: 2009 MDRO Source:: LEFT ULNAR BONE Past Surgical History: Appendectomy, Back Surgery, Cholecystectomy, Orthopedic Surgery Additional Past Surgical History / Comment(s): EYE SX FOR LAZY EYE, SX ON TEAR DUCTS, BACK SURGERY MICRO DISC, LT WRIST BROKEN 9 GALLO HAD 13 Surgeries TO CORRECT, left shoulder and humorous shattered from a fall with 2 surgeries to correct, LAPROSCOPIES- BENIGN TUNOR SIZE OF GRAPFRUIT REMOVED AGE 11 OR 1, RT BREAST BX/LUMPECTOMY,LT PINK FINGER SX TO STRAIGHTEN.MELANOMA SKIN CANCER REMOVED. Past Anesthesia/Blood Transfusion Reactions: No Reported Reaction Additional Past Anesthesia/Blood Transfusion Reaction / Comment(s): CLAUSTERPHOBIA Past Psychological History: Anxiety, Depression, PTSD Smoking Status: Never smoker Past Alcohol Use History: Occasional Past Drug Use History: None Reported - Past Family History Mother Family Medical History: Asthma Additional Family Medical History / Comment(s): ETOH/SMOKER Father Family Medical History: Cancer, Liver Disease Additional Family Medical History / Comment(s): ESOPHOGEAL CANCER, ETOH General Exam - General Exam Comments Initial Comments: Constitutional: NAD, AOX3, Pt has pleasant affect. HEENT: NC/AT, trachea midline, neck supple, no lymphadenopathy. Posterior pharynx non erythematous, without exudates. External ears appear normal, without discharge. Mucous membranes moist. Eyes PERRLA, EOM intact. There is no scleral icterus. No pallor noted. Cardiopulmonary: RRR, no murmurs, rubs or gallops, no JVD noted. Lungs CTAB in anterior and posterior avalos. No peripheral edema. Abdominal exam: Abdomen soft and non-distended. Abdomen non-tender to palpation in all 4 quadrants. Bowel sounds active in LLQ. No hepatosplenomegaly. No ecchymosis Neuro: CN II-XII grossly intact. No nuchal rigidity. No raccon eyes, no gore sign, no hemotympanum. No cervical spinal tenderness. MSK: Right shoulder mildly tender to palpation anteriorly. Empty can test is positive. Range of motion is intact but does cause discomfort of the shoulder. Neurovascularly intact. Dorsal aspect left forearm are tender to palpation. No skin changes. Neurovascularly intact. No posterior calf tenderness bilaterally, homans sign negative bilaterally. Posterior tibialis and radial pulse +2 bilaterally. Sensation intact in upper and lower extremities. Limitations: no limitations Course Vital Signs 10/02/19 13:52 Temperature 98.1 F Pulse Rate 68 Respiratory 18 Rate Blood Pressure 108/66 O2 Sat by Pulse 99 Oximetry Medical Decision Making - Medical Decision Making 69-year-old female patient presents to ED with chief complaint of requested imaging on her shoulder. Patient had a fall last November since then has been having right shoulder pain as well as left forearm pain. Patient has been following up with Dr. Plunkett out of [facility]. She states that he requested that she go to the emergency department today and have a CAT scan of her right shoulder as well as an x-ray of her left wrist. They're having a teleconference tomorrow and he wants to be able to review these results. States that the pain in her right shoulder has been since the fall states is worse with range of motion, denies any other complaints at this time. Pt VSS, afebrile. Physical exam displayed: Right shoulder mildly tender to palpation anteriorly. Empty can test is positive. Neurovascularly intact. Dorsal aspect left forearm are tender to palpation. No skin changes. Neurovascularly intact. CT right shoulder without contrast displayed probable pseudocyst formation anterior humeral head, distal acromial spur, correlate for impingement. Plain film of forearm plate no acute fracture or dislocation. Postsurgical changes similar to 2018.. A peripheral neuropathy, first carpometacarpal arthropathy and diffuse osseous demineralization. These results were explained to patient patient was provided a disc of this imaging study. Will be discharged with follow-up with her orthopedic doctor and return to ER if condition worsens. Case discussed with Dr. Bridges. Disposition Clinical Impression: Shoulder pain, Wrist pain Disposition: HOME SELF-CARE Condition: Stable Instructions (If sedation given, give patient instructions): Wrist Injury (ED), Shoulder Sprain (ED) Additional Instructions: Follow up with orthopedic doctor tomorrow as directed. Follow-up with primary care provider tomorrow. Return to ER if condition worsens in any way. Is patient prescribed a controlled substance at d/c from ED?: No Referrals: Julito Pina MD [Primary Care Provider] - 1-2 days
[2019-10-02] MEDS ORDERED: KETOROLAC 30 MG/ML 1 ML VIAL IM STA (17:28)
[2019-10-02 17:41] VITALS: BP 148/79; PULSE 80; RESP 16
== END 2019-10-02 17:44 | disposition home or self-care (01) ==
LOC: EC 13:50
DX: M25.511 Pain in right shoulder (principal); G62.9 Polyneuropathy, unspecified; M13.842 Other specified arthritis, left hand; M81.6 Localized osteoporosis [Lequesne]; J44.9 Chronic obstructive pulmonary disease, unspecified; K21.9 Gastro-esophageal reflux disease without esophagitis; I10 Essential (primary) hypertension; E07.9 Disorder of thyroid, unspecified; F32.9 Major depressive disorder, single episode, unspecified; F43.10 Post-traumatic stress disorder, unspecified; F41.9 Anxiety disorder, unspecified; Z85.3 Personal history of malignant neoplasm of breast; Z85.820 Personal history of malignant melanoma of skin; Z98.890 Other specified postprocedural states; Z86.14 Personal history of Methicillin resistant Staphylococcus aureus infection; Z87.81 Personal history of (healed) traumatic fracture; Z79.890 Hormone replacement therapy; Z79.82 Long term (current) use of aspirin; Z79.891 Long term (current) use of opiate analgesic; Z79.51 Long term (current) use of inhaled steroids; Z79.52 Long term (current) use of systemic steroids; Z79.899 Other long term (current) drug therapy; Z88.1 Allergy status to other antibiotic agents; Z88.8 Allergy status to other drugs, medicaments and biological substances; Z88.5 Allergy status to narcotic agent; Z88.6 Allergy status to analgesic agent; Z91.018 Allergy to other foods; Z91.048 Other nonmedicinal substance allergy status; Z91.030 Bee allergy status
CPT/HCPCS: 99284; 96372; 73090; 73200; J1885

== ENCOUNTER 2019-11-08 09:55 | Emergency (ER) | payer MEDICARE, OTHER ==
[2019-11-08 10:08] VITALS: RESP 18
[2019-11-08] MEDS ORDERED: KETOROLAC 30 MG/ML 1 ML VIAL IM STA (10:26)
--- NOTE | 2019-11-08 11:08 | ED ---
General Adult HPI - General Chief complaint: Fall Stated complaint: Fall Time Seen by Provider: 11/08/19 10:12 Source: patient, EMS, RN notes reviewed, old records reviewed Mode of arrival: EMS Limitations: no limitations - History of Present Illness Initial comments: 69-year-old female patient is eating chief complaint falls today. Patient reports that she has stability of her right ankle due to multiple ligament repairs. She reports that today she was walking her right ankle gave out on her she fall on her left side hitting her left knee. Patient reports that she was walking to go get a Band-Aid as she had a left knee abrasion and then she again fell this time on her right side hitting her right shoulder. Patient denies any trauma to head or neck. Her chief complaint is right hand and wrist pain, left knee pain right shoulder pain. Findings of blood thinners. Tetanus is up-to-date. Systemic: Pt denies fatigue, fever/chills, rash. Pt denies weakness, night sweats, weight loss. Neuro: Pt denies headache, visual disturbances, syncope or pre-syncope. HEENT: Pt denies ocular discharge or irritation, otalgia, rhinorrhea, pharyngitis or notable lymphadenopathy. Cardiopulmonary: Pt denies chest pain, SOB, heart palpitations, dyspnea on exertion. Abdominal/GI: Pt denies abdominal pain, n/v/d. : Pt denies dysuria, burning w/ urination, frequency/urgency. Denies new onset urinary or bowel incontinence. MSK: Pt denies myalgia, loss of strength or function in extremities. Neuro: Pt denies new onset weakness, paresthesias. - Related Data Home Medications Medication Instructions Recorded Confirmed Aspirin EC [Ecotrin Low Dose] 81 mg PO DAILY 04/09/16 11/08/19 Pantoprazole Sodium [Protonix] 40 mg PO BID PRN 04/09/16 11/08/19 EPINEPHrine [Epipen 2-River] 0.3 mg IM ONCE PRN 11/16/16 03/21/19 Loratadine [Claritin] 10 mg PO DAILY 11/16/16 11/08/19 Methenamine Hippurate [Hiprex] 1 gm PO BID 11/16/16 11/08/19 Montelukast [Singulair] 10 mg PO HS 11/16/16 03/21/19 Nitroglycerin Sl Tabs [Nitrostat] 0.4 mg SUBLINGUAL Q5M PRN 11/16/16 03/21/19 Sucralfate [Carafate] 1 gm PO ACHS 12/13/16 11/08/19 Diazepam [Valium] 5 mg PO DAILY PRN 09/16/17 11/08/19 Losartan Potassium 50 mg PO DAILY 09/16/17 11/08/19 DULoxetine HCL [Cymbalta] 120 mg PO DAILY 04/24/18 11/08/19 Levothyroxine Sodium [Synthroid] 88 mcg PO DAILY 04/24/18 11/08/19 Olopatadine HCl [Pataday] 1 drop BOTH EYES DAILY PRN 08/11/18 03/21/19 buPROPion HCL [Wellbutrin SR] 200 mg PO BID 08/11/18 03/21/19 valACYclovir [Valtrex] 500 mg PO DAILY 08/11/18 11/08/19 Hydrochlorothiazide 12.5 mg PO DAILY 09/12/18 03/21/19 Ergocalciferol [Vitamin D2] 50,000 unit PO FR 01/14/19 03/21/19 HYDROcodone/APAP 10-325MG [[place] 1 tab PO DAILY 01/14/19 11/08/19 10-325] Lidocaine 5% Oint [Xylocaine 5% 1 applic TOPICAL BID PRN 01/14/19 11/08/19 Oint] Albuterol Sulfate [Proair Hfa] 1 - 2 puff INHALATION RT-Q4H PRN 03/21/19 03/21/19 Aspirin/Acetaminophen/Caffeine 1 - 2 tab PO DAILY PRN 03/21/19 11/08/19 [Excedrin Migraine Caplet] Cyanocobalamin [Vitamin B-12 1,000 mcg SQ Q28D 03/21/19 03/21/19 Injection] Fluticasone Nasal [place] [Flonase 1 spray EA NOSTRIL DAILY 03/21/19 11/08/19 Nasal [place]] Fluticasone Propionate [Flovent 1 puff INHALATION RT-BID 03/21/19 03/21/19 Diskus] diphenhydrAMINE [Benadryl] 50 mg PO DAILY 03/21/19 03/21/19 Metoprolol Succinate (ER) [Toprol 25 mg PO DAILY 11/08/19 11/08/19 Xl] Topiramate [Topamax] 100 mg PO BID-W/MEALS 11/08/19 11/08/19 Previous Rx's Medication Instructions Recorded Promethaz-Cod 6.25-10 mg/5 ml 5 ml PO Q6HR PRN #60 ml 03/21/19 [Phenergan with Codeine] Allergies Allergy/AdvReac Type Severity Reaction Status Date / Time buprenorphine [From Butrans] Allergy pain Verified 11/08/19 11:57 carisoprodol [From Soma] Allergy Unknown Verified 11/08/19 11:57 chlorpromazine Allergy Unknown Verified 11/08/19 11:57 [From Thorazine] ciprofloxacin [From Cipro] Allergy Unknown Verified 11/08/19 11:57 clonazepam [From Klonopin] Allergy Unknown Verified 11/08/19 11:57 cyclobenzaprine Allergy Unknown Verified 11/08/19 11:57 [From Flexeril] metoclopramide [From Reglan] Allergy Anaphylaxis Verified 11/08/19 11:57 metronidazole [From Flagyl] Allergy Anaphylaxis Verified 11/08/19 11:57 morphine Allergy Rash/Hives Verified 11/08/19 11:57 naproxen Allergy Unknown Verified 11/08/19 11:57 papaya Allergy Rash/Hives Verified 11/08/19 11:57 prednisone Allergy Anaphylaxis Verified 11/08/19 11:57 prochlorperazine Allergy Anaphylaxis Verified 11/08/19 11:57 [From Compazine] red dye Allergy Rash/Hives Verified 11/08/19 11:57 venom-honey bee Allergy Anaphylaxis Verified 11/08/19 11:57 [bee venom (honey bee)] ketorolac [From Toradol] AdvReac Severe Abdominal Verified 11/08/19 11:57 Pain baclofen AdvReac Twitching Verified 11/08/19 11:57 buspirone [From BuSpar] AdvReac Confusion Verified 11/08/19 11:57 ibuprofen [From Motrin] AdvReac Abdominal Verified 11/08/19 11:57 Pain meperidine [From Demerol] AdvReac Rapid Verified 11/08/19 11:57 Heart Rate Phenothiazines AdvReac Altered Verified 11/08/19 11:57 Mental Status Review of Systems ROS Statement: Those systems with pertinent positive or pertinent negative responses have been documented in the HPI. ROS Other: All systems not noted in ROS Statement are negative. Past Medical History Past Medical History: Asthma, Cancer, COPD, GERD/Reflux, Hypertension, Pneumonia, Thyroid Disorder Additional Past Medical History / Comment(s): shingles, RT BREAST LUMPECTOMY/CANCER, THYROID REMOVE, CATARACTS, BRONCHITIS, MONO TEENAGER, LITE CASE OF POLIO AGE 8, MELANOMA SKIN CANCER REMOVED, r shoulder rotator tear History of Any Multi-Drug Resistant Organisms: MRSA Date of last positivie culture/infection: 2009 MDRO Source:: LEFT ULNAR BONE Past Surgical History: Appendectomy, Back Surgery, Cholecystectomy, Orthopedic Surgery Additional Past Surgical History / Comment(s): EYE SX FOR LAZY EYE, SX ON TEAR DUCTS, BACK SURGERY MICRO DISC, LT WRIST BROKEN 9 GALLO HAD 13 Surgeries TO CORRECT, left shoulder and humorous shattered from a fall with 2 surgeries to correct, LAPROSCOPIES- BENIGN TUNOR SIZE OF GRAPFRUIT REMOVED AGE 11 OR 1, RT BREAST BX/LUMPECTOMY,LT PINK FINGER SX TO STRAIGHTEN.MELANOMA SKIN CANCER REMOVED. Past Anesthesia/Blood Transfusion Reactions: No Reported Reaction Additional Past Anesthesia/Blood Transfusion Reaction / Comment(s): CLAUSTERPHOBIA Past Psychological History: Anxiety, Depression, PTSD Smoking Status: Never smoker Past Alcohol Use History: Occasional Past Drug Use History: None Reported - Past Family History Mother Family Medical History: Asthma Additional Family Medical History / Comment(s): ETOH/SMOKER Father Family Medical History: Cancer, Liver Disease Additional Family Medical History / Comment(s): ESOPHOGEAL CANCER, ETOH General Exam - General Exam Comments Initial Comments: Constitutional: NAD, AOX3, Pt has pleasant affect. HEENT: NC/AT, trachea midline, neck supple. External ears appear normal, without discharge. Mucous membranes moist. EOM intact. There is no scleral icterus. No pallor noted. Cardiopulmonary: RRR, no murmurs, rubs or gallops, no JVD noted. Lungs CTAB in anterior and posterior avalos. No peripheral edema. Abdominal exam: Abdomen soft and non-distended. Abdomen non-tender to palpation in all 4 quadrants. Bowel sounds active in LLQ. No hepatosplenomegaly. No ecchymosis Neuro: CN II-XII grossly intact. No nuchal rigidity. No raccon eyes, no gore sign. No cervical spinal tenderness. MSK: Abrasion noted to left anterior knee. Mild tenderness noted to dorsal aspect of right hand and wrist. No snuffbox tenderness. Right shoulder tenderness anteriorly. Mild amount proximal humerus tenderness. Range of motion is intact but does cause discomfort in the right shoulder. Upper and lower extremities didn't display any other signs of injury or tenderness. Motion is intact. Ambulatory without difficulty. Distal pulses are intact and equal. Limitations: no limitations Course Vital Signs 11/08/19 11/08/19 11/08/19 10:03 11:37 12:18 Temperature 98.9 F 97.7 F Pulse Rate 74 80 68 Respiratory 18 18 18 Rate Blood Pressure 103/70 101/67 145/76 O2 Sat by Pulse 97 97 100 Oximetry Medical Decision Making - Medical Decision Making 69-year-old female patient presents with chief complaint of 2 mechanical falls. Chief complaint is right knee pain dorsal aspect of right wrist and hand. Right shoulder pain. No trauma head or neck. Plain films are negative. Patient is ambulatory. No snuffbox tenderness. Abrasion is cleaned and bandaged. Tetanus is up-to-date. Patient falls or due to the fact that she has right ankle instability which is chronic and she is not wearing her brace. Does not have any pain in her ankle or skin changes. Patient advised to use brace follow up with primary care provider tomorrow or return here if worsens. Case discussed with Dr. Morales. Disposition Clinical Impression: Shoulder sprain, Fall Disposition: HOME SELF-CARE Condition: Stable Instructions (If sedation given, give patient instructions): Fall Prevention (ED), Shoulder Sprain (ED) Additional Instructions: Follow-up with primary care provider tomorrow. I recommend wearing an ankle brace to reduce chance of falling. Follow with orthopedic surgeon who manages your shoulder tomorrow. Return to ER if condition worsens. Is patient prescribed a controlled substance at d/c from ED?: No Referrals: Julito Pina MD [Primary Care Provider] - 1-2 days
[2019-11-08] MEDS ORDERED: HYDROcodone/APAP 10-325MG 1 EACH TAB PO ONE (11:31)
--- NOTE | 2019-11-08 11:56 | XR ---
EXAMINATION TYPE: XR shoulder complete 3 views RT, XR wrist complete 4 views RT, XR hand complete 3 views RT DATE OF EXAM: 11/08/2019 COMPARISON: NONE HISTORY: 69-year-old female with fall and pain FINDINGS: Right shoulder: Moderate degenerative change at the AC joint. Subacromial space is preserved. There is bony irregular ity and cystic change at the greater tuberosity. Mild degenerative spurring at the glenohumeral joint . No acute fracture, subluxation, or dislocation. Right wrist: There is deformity of the distal radial metaphysis and epiphysis suggesting old healed impacted dista l radial fracture. There is possible ulnar variance. TFC calcifications noted. Metacarpal compartment appear intact. No acute fracture or dislocation seen. Right hand: Osteoarthritic spurring throughout the PIP and DIP joints of the fingers and mild of the base of the thumb. A ring is present on the fourth digit. No acute fracture, subluxation, or dislocation. IMPRESSION: 1. Right shoulder: Moderate AC joint OA. Mild degenerative change at the glenohumeral joint. Bony liv nges at the greater tuberosity typical of chronic rotator cuff tendinopathy. If concern for rotator c uff tear, MRI can be performed. No acute osseous abnormal body seen. 2. Right wrist: Old impacted healed fracture deformity of the distal radius. Secondary positive ulnar variance and potential ulnar impaction syndrome. No acute osseous abnormality seen. 3. Right hand: Scattered osteoarthritic changes. No acute osseous abnormality seen.
--- NOTE | 2019-11-08 11:58 | XR ---
EXAMINATION TYPE: XR knee 4V LT, XR tibia fibula 2 views LT DATE OF EXAM: 11/08/2019 COMPARISON: NONE HISTORY: 69-year-old female with fall and pain FINDINGS: Left knee: Degenerative spurring medially on patellofemoral compartments. No knee joint effusion. Extensor mecha nism is intact. Mild anterior soft tissue swelling. Subtle meniscal chondrocalcinosis. Left tibia/fibula: No tibial or fibular shaft fracture. Ankle mortise appears grossly intact. IMPRESSION: 1. Left knee: Degenerative spurring medial and patellofemoral compartments. No acute osseous body see n. No knee joint effusion. 2. Left tibia/fibula: No acute osseous abnormality seen.
[2019-11-08 12:19] VITALS: BP 145/76; PULSE 68; TEMP 97.7
--- NOTE | 2019-11-08 12:46 | XR ---
EXAMINATION TYPE: XR humerus RT DATE OF EXAM: 11/08/2019 COMPARISON: NONE HISTORY: 69-year-old female with pain after fall TECHNIQUE: 2 views FINDINGS: No humeral shaft fracture. No elbow joint effusion. IMPRESSION: No acute osseous abnormality seen.
== END 2019-11-08 13:12 | disposition home or self-care (01) ==
LOC: EC 09:55
DX: S43.401A Unspecified sprain of right shoulder joint, initial encounter (principal); S80.212A Abrasion, left knee, initial encounter; M25.561 Pain in right knee; M25.371 Other instability, right ankle; J44.9 Chronic obstructive pulmonary disease, unspecified; K21.9 Gastro-esophageal reflux disease without esophagitis; I10 Essential (primary) hypertension; E07.9 Disorder of thyroid, unspecified; F41.9 Anxiety disorder, unspecified; F32.9 Major depressive disorder, single episode, unspecified; F43.10 Post-traumatic stress disorder, unspecified; Z79.82 Long term (current) use of aspirin; Z79.899 Other long term (current) drug therapy; Z79.890 Hormone replacement therapy; Z79.51 Long term (current) use of inhaled steroids; Z88.8 Allergy status to other drugs, medicaments and biological substances; Z88.1 Allergy status to other antibiotic agents; Z88.5 Allergy status to narcotic agent; Z88.6 Allergy status to analgesic agent; Z91.018 Allergy to other foods; Z91.041 Radiographic dye allergy status; Z91.030 Bee allergy status; Z90.11 Acquired absence of right breast and nipple; Z85.3 Personal history of malignant neoplasm of breast; Z90.89 Acquired absence of other organs; Z85.828 Personal history of other malignant neoplasm of skin; Z98.890 Other specified postprocedural states; W01.10XA Fall on same level from slipping, tripping and stumbling with subsequent striking against unspecified object, initial encounter; Y93.01 Activity, walking, marching and hiking; Y92.89 Other specified places as the place of occurrence of the external cause
CPT/HCPCS: 73030; 73060; 73110; 73130; 73590; 73564; 99284; J1885

== ENCOUNTER 2019-11-25 18:09 | Emergency (ER) | payer MEDICARE, OTHER ==
[2019-11-25 18:16] VITALS: TEMP 98.3
[2019-11-25] MEDS ORDERED: SODIUM CHLORIDE 0.9% 1,000 ML IV ONE (18:37)
--- NOTE | 2019-11-25 18:41 | ED ---
General Adult HPI - General Chief complaint: Urogenital Stated complaint: Bladder infection Time Seen by Provider: 11/25/19 18:22 Source: patient, RN notes reviewed Mode of arrival: ambulatory Limitations: no limitations - History of Present Illness Initial comments: Patient is a pleasant 69-year-old female presenting to the emergency Department with complaints of urinary symptoms. Patient has frequent urinary tract infections with similar symptoms. Onset was yesterday. Patient has dysuria. Patient has urinary frequency was only urinating small amounts. Patient has some suprapubic pressure as well as posterior flank discomfort. Patient has m ild nausea. No vomiting. No fevers. - Related Data Home Medications Medication Instructions Recorded Confirmed Aspirin EC [Ecotrin Low Dose] 81 mg PO DAILY 04/09/16 11/08/19 Pantoprazole Sodium [Protonix] 40 mg PO BID 04/09/16 11/08/19 EPINEPHrine [Epipen 2-River] 0.3 mg IM ONCE PRN 11/16/16 11/08/19 Loratadine [Claritin] 10 mg PO DAILY 11/16/16 11/08/19 Methenamine Hippurate [Hiprex] 1 gm PO BID 11/16/16 11/08/19 Montelukast [Singulair] 10 mg PO HS 11/16/16 11/08/19 Nitroglycerin Sl Tabs [Nitrostat] 0.4 mg SUBLINGUAL Q5M PRN 11/16/16 11/08/19 Sucralfate [Carafate] 1 gm PO ACHS 12/13/16 11/08/19 Diazepam [Valium] 5 mg PO DAILY PRN 09/16/17 11/08/19 Losartan Potassium 50 mg PO DAILY 09/16/17 11/08/19 DULoxetine HCL [Cymbalta] 120 mg PO DAILY 04/24/18 11/08/19 Levothyroxine Sodium [Synthroid] 88 mcg PO DAILY 04/24/18 11/08/19 Olopatadine HCl [Pataday] 1 drop BOTH EYES DAILY PRN 08/11/18 11/08/19 buPROPion HCL [Wellbutrin SR] 200 mg PO BID 08/11/18 11/08/19 valACYclovir [Valtrex] 500 mg PO DAILY 08/11/18 11/08/19 Hydrochlorothiazide 12.5 mg PO DAILY 09/12/18 11/08/19 Ergocalciferol [Vitamin D2] 50,000 unit PO FR 01/14/19 11/08/19 HYDROcodone/APAP 10-325MG [[place] 1 tab PO DAILY 01/14/19 11/08/19 10-325] Lidocaine 5% Oint [Xylocaine 5% 1 applic TOPICAL BID PRN 01/14/19 11/08/19 Oint] Albuterol Sulfate [Proair Hfa] 1 - 2 puff INHALATION RT-Q4H PRN 03/21/19 11/08/19 Aspirin/Acetaminophen/Caffeine 1 - 2 tab PO DAILY PRN 03/21/19 11/08/19 [Excedrin Migraine Caplet] Cyanocobalamin [Vitamin B-12 1,000 mcg SQ Q28D 03/21/19 11/08/19 Injection] Fluticasone Nasal [place] [Flonase 1 spray EA NOSTRIL DAILY 03/21/19 11/08/19 Nasal [place]] Fluticasone Propionate [Flovent 1 puff INHALATION RT-BID PRN 03/21/19 11/08/19 Diskus] diphenhydrAMINE [Benadryl] 50 mg PO HS 03/21/19 11/08/19 Metoprolol Succinate (ER) [Toprol 25 mg PO DAILY 11/08/19 11/08/19 Xl] Ondansetron [Zofran] 4 mg PO TID PRN 11/08/19 11/08/19 Paliperidone [Paliperidone ER] 1.5 mg PO DAILY 11/08/19 11/08/19 Topiramate [Topamax] 100 mg PO BID-W/MEALS 11/08/19 11/08/19 Previous Rx's Medication Instructions Recorded Promethaz-Cod 6.25-10 mg/5 ml 5 ml PO Q6HR PRN #60 ml 03/21/19 [Phenergan with Codeine] Nitrofurantoin Monohyd/M-Cryst 100 mg PO Q12HR #20 cap 11/25/19 [Macrobid] Allergies Allergy/AdvReac Type Severity Reaction Status Date / Time buprenorphine [From Butrans] Allergy pain Verified 11/25/19 18:16 carisoprodol [From Soma] Allergy Unknown Verified 11/25/19 18:16 chlorpromazine Allergy Unknown Verified 11/25/19 18:16 [From Thorazine] ciprofloxacin [From Cipro] Allergy Unknown Verified 11/25/19 18:16 clonazepam [From Klonopin] Allergy Unknown Verified 11/25/19 18:16 cyclobenzaprine Allergy Unknown Verified 11/25/19 18:16 [From Flexeril] metoclopramide [From Reglan] Allergy Anaphylaxis Verified 11/25/19 18:16 metronidazole [From Flagyl] Allergy Anaphylaxis Verified 11/25/19 18:16 morphine Allergy Rash/Hives Verified 11/25/19 18:16 naproxen Allergy Unknown Verified 11/25/19 18:16 papaya Allergy Rash/Hives Verified 11/25/19 18:16 prednisone Allergy Anaphylaxis Verified 11/25/19 18:16 prochlorperazine Allergy Anaphylaxis Verified 11/25/19 18:16 [From Compazine] red dye Allergy Rash/Hives Verified 11/25/19 18:16 venom-honey bee Allergy Anaphylaxis Verified 11/25/19 18:16 [bee venom (honey bee)] ketorolac [From Toradol] AdvReac Severe Abdominal Verified 11/25/19 18:16 Pain baclofen AdvReac Twitching Verified 11/25/19 18:16 buspirone [From BuSpar] AdvReac Confusion Verified 11/25/19 18:16 ibuprofen [From Motrin] AdvReac Abdominal Verified 11/25/19 18:16 Pain meperidine [From Demerol] AdvReac Rapid Verified 11/25/19 18:16 Heart Rate Phenothiazines AdvReac Altered Verified 11/25/19 18:16 Mental Status Review of Systems ROS Statement: Those systems with pertinent positive or pertinent negative responses have been documented in the HPI. ROS Other: All systems not noted in ROS Statement are negative. Constitutional: Denies: fever Eyes: Denies: eye pain ENT: Denies: ear pain Respiratory: Denies: cough, dyspnea Cardiovascular: Denies: chest pain Endocrine: Reports: fatigue Gastrointestinal: Reports: as per HPI, nausea Genitourinary: Reports: urgency, dysuria, frequency Musculoskeletal: Denies: arthralgia Skin: Denies: rash Neurological: Denies: weakness Past Medical History Past Medical History: Asthma, Cancer, COPD, GERD/Reflux, Hypertension, Pneumonia, Thyroid Disorder Additional Past Medical History / Comment(s): shingles, RT BREAST LUMPECTOMY/CANCER, THYROID REMOVE, CATARACTS, BRONCHITIS, MONO TEENAGER, LITE CASE OF POLIO AGE 8, MELANOMA SKIN CANCER REMOVED, r shoulder rotator tear History of Any Multi-Drug Resistant Organisms: MRSA Date of last positivie culture/infection: 2009 MDRO Source:: LEFT ULNAR BONE Past Surgical History: Appendectomy, Back Surgery, Cholecystectomy, Orthopedic Surgery Additional Past Surgical History / Comment(s): EYE SX FOR LAZY EYE, SX ON TEAR DUCTS, BACK SURGERY MICRO DISC, LT WRIST BROKEN 7 GALLO HAD 13 Surgeries TO CORRECT, left shoulder and humorous shattered from a fall with 2 surgeries to correct, LAPROSCOPIES- BENIGN TUNOR SIZE OF GRAPFRUIT REMOVED AGE 11 OR 1, RT BREAST BX/LUMPECTOMY,LT PINK FINGER SX TO STRAIGHTEN.MELANOMA SKIN CANCER REMOVED. Past Anesthesia/Blood Transfusion Reactions: No Reported Reaction Additional Past Anesthesia/Blood Transfusion Reaction / Comment(s): CLAUSTERPHOBIA Past Psychological History: Anxiety, Depression, PTSD Past Alcohol Use History: Occasional Past Drug Use History: None Reported - Past Family History Mother Family Medical History: Asthma Additional Family Medical History / Comment(s): ETOH/SMOKER Father Family Medical History: Cancer, Liver Disease Additional Family Medical History / Comment(s): ESOPHOGEAL CANCER, ETOH General Exam Limitations: no limitations General appearance: alert, in no apparent distress Head exam: Present: normocephalic Eye exam: Present: normal appearance Neck exam: Present: normal inspection Respiratory exam: Present: normal lung sounds bilaterally Cardiovascular Exam: Present: regular rate, normal rhythm Expanded Peripheral pulses: 2+: Posterior Tibialis (R), Posterior Tibialis (L), Dorsalis Pedis (R), Dorsalis Pedis (L) GI/Abdominal exam: Present: soft, normal bowel sounds. Absent: distended, tenderness, guarding, rebound, rigid, pulsatile mass Extremities exam: Present: normal inspection Back exam: Present: normal inspection. Absent: CVA tenderness (R), CVA tenderness (L) Neurological exam: Present: alert Psychiatric exam: Present: normal affect, normal mood Skin exam: Present: normal color Course Vital Signs 11/25/19 18:12 Temperature 98.3 F Pulse Rate 59 L Respiratory 18 Rate Blood Pressure 131/67 O2 Sat by Pulse 99 Oximetry Medical Decision Making - Medical Decision Making Patient reevaluated and updated. Patient is comfortable with discharge home. - Lab Data Result diagrams: 11/25/19 18:43 11/25/19 18:43 Lab Results 11/25/19 11/25/19 11/25/19 Range/Units 18:38 18:43 18:43 WBC 8.2 (3.8-10.6) k/uL RBC 3.97 (3.80-5.40) m/uL Hgb 12.3 (11.4-16.0) gm/dL Hct 39.2 (34.0-46.0) % MCV 98.6 (80.0-100.0) fL MCH 30.9 (25.0-35.0) pg MCHC 31.3 (31.0-37.0) g/dL RDW 14.0 (11.5-15.5) % Plt Count 289 (150-450) k/uL Neutrophils % 66 % Lymphocytes % 25 % Monocytes % 5 % Eosinophils % 2 % Basophils % 1 % Neutrophils # 5.4 (1.3-7.7) k/uL Lymphocytes # 2.0 (1.0-4.8) k/uL Monocytes # 0.4 (0-1.0) k/uL Eosinophils # 0.1 (0-0.7) k/uL Basophils # 0.0 (0-0.2) k/uL Sodium 137 (137-145) mmol/L Potassium 3.9 (3.5-5.1) mmol/L Chloride 108 H (98-107) mmol/L Carbon Dioxide 21 L (22-30) mmol/L Anion Gap 8 mmol/L BUN 19 H (7-17) mg/dL Creatinine 1.12 H (0.52-1.04) mg/dL Est GFR (CKD-EPI)AfAm 57 (>60 ml/min/1.73 sqM) Est GFR (CKD-EPI)NonAf 50 (>60 ml/min/1.73 sqM) Glucose 91 (74-99) mg/dL Calcium 9.5 (8.4-10.2) mg/dL Total Bilirubin 0.5 (0.2-1.3) mg/dL AST 23 (14-36) U/L ALT 17 (4-34) U/L Alkaline Phosphatase 117 (38-126) U/L Total Protein 6.8 (6.3-8.2) g/dL Albumin 4.2 (3.5-5.0) g/dL Urine Color Light Yellow Urine Appearance Cloudy H (Clear) Urine pH 5.5 (5.0-8.0) Ur Specific [place] 1.008 (1.001-1.035) Urine Protein Trace H (Negative) Urine Glucose (UA) Negative (Negative) Urine Ketones Negative (Negative) Urine Blood Small H (Negative) Urine Nitrite Negative (Negative) Urine Bilirubin Negative (Negative) Urine Urobilinogen <2.0 (<2.0) mg/dL Ur Leukocyte Esterase Large H (Negative) Urine RBC 3 (0-5) /hpf Urine WBC 89 H (0-5) /hpf Urine WBC Clumps Few H (None) /hpf Urine Bacteria Few H (None) /hpf Hyaline Casts 1 (0-2) /lpf Urine Mucus Rare H (None) /hpf - Radiology Data Radiology results: image reviewed (KUB shows moderate stool burden.) Disposition Clinical Impression: Urinary tract infection Disposition: HOME SELF-CARE Condition: Stable Instructions (If sedation given, give patient instructions): Urinary Tract Infection in Women (ED) Additional Instructions: Prescription sent to [facility] on the. In [place]. Please follow-up with your primary care physician in the next day or 2 for recheck. Return for fever, pain, vomiting, worsening symptoms or other concerns. Prescriptions: Nitrofurantoin Monohyd/M-Cryst [Macrobid] 100 mg PO Q12HR #20 cap Is patient prescribed a controlled substance at d/c from ED?: No Referrals: Julito Pina MD [Primary Care Provider] - 1-2 days Time of Disposition: 19:19
[2019-11-25] MEDS ORDERED: HYDROmorphone 0.5 MG/0.5 ML SYRINGE IVP STA (18:50)
[2019-11-25 18:54] LABS: Basophils % (A) 1 %; Eosinophils # (A) 0.1 k/uL (0-0.7); Eosinophils % (A) 2 %; HCT 39.2 % (34.0-46.0); HGB 12.3 gm/dL (11.4-16.0); Lymphocytes % (A) 25 %; MCH 30.9 pg (25.0-35.0); MCHC 31.3 g/dL (31.0-37.0); MCV 98.6 fL (80.0-100.0); Mean Platelet Volume 7.7; Monocytes # (A) 0.4 k/uL (0-1.0); Monocytes % (A) 5 %; Neutrophils # (A) 5.4 k/uL (1.3-7.7); Neutrophils % (A) 66 %; Platelet Count 289 k/uL (150-450); RBC 3.97 m/uL (3.80-5.40); WBC 8.2 k/uL (3.8-10.6)
[2019-11-25 19:03] LABS: Albumin 4.2 g/dL (3.5-5.0); Calcium 9.5 mg/dL (8.4-10.2); Potassium 3.9 mmol/L (3.5-5.1); Total Bilirubin 0.5 mg/dL (0.2-1.3); Total Protein 6.8 g/dL (6.3-8.2)
[2019-11-25 19:03] LABS: Appearance,Urine Cloudy (Clear); Bacteria,Urine Few /hpf; Bilirubin,Urine Negative (Negative); Blood,Urine Small (Negative); Color,Urine Light Yellow; Glucose,Urine (UA) Negative (Negative); Hyaline Casts,Urine 1 /lpf (0-2); Ketones,Urine Negative (Negative); Leukocyte Esterase,Urine Large (Negative); Mucus,Urine Rare /hpf; Nitrite,Urine Negative (Negative); PH, Urine 5.5 (5.0-8.0); Protein,Urine Trace (Negative); RBC,Urine 3 /hpf (0-5); Specific Gravity,Urine 1.008 (1.001-1.035); Urobilinogen,Urine <2.0 mg/dL (<2.0); WBC,Urine 89 /hpf (0-5)
--- NOTE | 2019-11-25 19:07 | XR ---
EXAMINATION TYPE: XR abdomen 1V DATE OF EXAM: 11/25/2019 Comparison: None Clinical History: 69-year-old female pain Findings: Lung bases are clear. No evidence for free intraperitoneal air. Moderate overall stool burden. Cholecystectomy clips. Nonspecific calcifications, probably soft tissue calcifications projecting over the right iliac bone. Nonspecific calcifications either heterotopic ossification or loose bodies within the bilateral hip joints. Bowel content largely obscures the renal shadows. Impression: Moderate stool burden, possible constipation. No evidence for free air or bowel obstruction.
[2019-11-25 20:40] VITALS: BP 142/94; PULSE 69; RESP 17
== END 2019-11-25 20:30 | disposition home or self-care (01) ==
LOC: EC 18:09
DX: N39.0 Urinary tract infection, site not specified (principal); F32.9 Major depressive disorder, single episode, unspecified; F41.9 Anxiety disorder, unspecified; F43.10 Post-traumatic stress disorder, unspecified; I10 Essential (primary) hypertension; J44.9 Chronic obstructive pulmonary disease, unspecified; K21.9 Gastro-esophageal reflux disease without esophagitis; E07.9 Disorder of thyroid, unspecified; Z79.82 Long term (current) use of aspirin; Z79.899 Other long term (current) drug therapy; Z79.890 Hormone replacement therapy; Z79.51 Long term (current) use of inhaled steroids; Z88.5 Allergy status to narcotic agent; Z88.6 Allergy status to analgesic agent; Z88.8 Allergy status to other drugs, medicaments and biological substances; Z91.041 Radiographic dye allergy status; Z91.018 Allergy to other foods; Z88.1 Allergy status to other antibiotic agents; Z85.820 Personal history of malignant melanoma of skin; Z85.3 Personal history of malignant neoplasm of breast; Z90.11 Acquired absence of right breast and nipple; Z90.89 Acquired absence of other organs; Z86.14 Personal history of Methicillin resistant Staphylococcus aureus infection
CPT/HCPCS: 36415; 80053; 85025; 81001; 87086; 74018; 99283; 96365; 96375; 96361; J0696; J1170

== ENCOUNTER 2019-12-13 23:50 | Emergency (ER) | payer MEDICARE, OTHER ==
[2019-12-14 01:07] LABS: Appearance,Urine Clear (Clear); Bilirubin,Urine 1+ (Negative); Blood,Urine Negative (Negative); Color,Urine Dark Brown; Glucose,Urine (UA) Negative (Negative); Ketones,Urine Negative (Negative); Leukocyte Esterase,Urine Moderate (Negative); Mucus,Urine Rare /hpf; Nitrite,Urine Positive (Negative); Protein,Urine Trace (Negative); RBC,Urine 3 /hpf (0-5); Specific Gravity,Urine 1.027 (1.001-1.035); Squamous Epithelial Cell,Urine 1 /hpf (0-4); WBC,Urine 11 /hpf (0-5)
[2019-12-14] MEDS ORDERED: HYDROmorphone 0.5 MG/0.5 ML SYRINGE IVP STA (01:12)
[2019-12-14 02:07] LABS: Basophils % (A) 1 %; Eosinophils # (A) 0.2 k/uL (0-0.7); Eosinophils % (A) 3 %; HCT 35.7 % (34.0-46.0); HGB 10.9 gm/dL (11.4-16.0); Hypochromasia Slight; Lymphocytes # (A) 2.7 k/uL (1.0-4.8); Lymphocytes % (A) 41 %; MCH 30.8 pg (25.0-35.0); MCHC 30.6 g/dL (31.0-37.0); MCV 100.6 fL (80.0-100.0); Mean Platelet Volume 8.5; Monocytes # (A) 0.4 k/uL (0-1.0); Monocytes % (A) 7 %; Neutrophils # (A) 2.9 k/uL (1.3-7.7); Neutrophils % (A) 45 %; Platelet Count 231 k/uL (150-450); RBC 3.54 m/uL (3.80-5.40); RDW 13.6 % (11.5-15.5); WBC 6.5 k/uL (3.8-10.6)
[2019-12-14 02:12] LABS: Calcium 8.9 mg/dL (8.4-10.2); Potassium 4.3 mmol/L (3.5-5.1)
[2019-12-14] MEDS ORDERED: SULFAMETHOX-TMP 800-160MG 1 EACH TAB PO STA (03:22)
--- NOTE | 2019-12-14 03:22 | ED ---
General Adult HPI - General Chief complaint: Urogenital Stated complaint: Bladder infection Time Seen by Provider: 12/14/19 00:05 Source: patient Mode of arrival: ambulatory Limitations: no limitations - History of Present Illness Initial comments: This patient is 69-year-old woman who presents with symptoms she believes are related to urinary tract infection. She is having suprapubic pressure, frequency, dysuria and she notes that her urine smells funny to her. She states she has previously had the symptoms associated with urinary tract infection. She states also that she was recently told that her kidney tests show stage III renal failure and she was concerned about this. Patient does have an upcoming appointment with the operations professional. She has had most of the workup for this completed, including having a renal ultrasound performed. Patient denies fever or chills. No change in bowel movements or any vomiting. No leg pain or edema. No chest pain or dyspnea -: days(s) Location: abdomen Radiation: non-radiation Quality: burning, other (Pressure) Consistency: intermittent Improves with: none Worsens with: other (Urination) Associated Symptoms: denies other symptoms - Related Data Home Medications Medication Instructions Recorded Confirmed Aspirin EC [Ecotrin Low Dose] 81 mg PO DAILY 04/09/16 11/08/19 Pantoprazole Sodium [Protonix] 40 mg PO BID 04/09/16 11/08/19 EPINEPHrine [Epipen 2-River] 0.3 mg IM ONCE PRN 11/16/16 11/08/19 Loratadine [Claritin] 10 mg PO DAILY 11/16/16 11/08/19 Methenamine Hippurate [Hiprex] 1 gm PO BID 11/16/16 11/08/19 Montelukast [Singulair] 10 mg PO HS 11/16/16 11/08/19 Nitroglycerin Sl Tabs [Nitrostat] 0.4 mg SUBLINGUAL Q5M PRN 11/16/16 11/08/19 Sucralfate [Carafate] 1 gm PO ACHS 12/13/16 11/08/19 Losartan Potassium 50 mg PO DAILY 09/16/17 11/08/19 diazePAM [Valium] 5 mg PO DAILY PRN 09/16/17 11/08/19 DULoxetine HCL [Cymbalta] 120 mg PO DAILY 04/24/18 11/08/19 Levothyroxine Sodium [Synthroid] 88 mcg PO DAILY 04/24/18 11/08/19 Olopatadine HCl [Pataday] 1 drop BOTH EYES DAILY PRN 08/11/18 11/08/19 buPROPion HCL [Wellbutrin SR] 200 mg PO BID 08/11/18 11/08/19 valACYclovir [Valtrex] 500 mg PO DAILY 08/11/18 11/08/19 Hydrochlorothiazide 12.5 mg PO DAILY 09/12/18 11/08/19 [hydroCHLOROthiazide] Ergocalciferol [Vitamin D2] 50,000 unit PO FR 01/14/19 11/08/19 HYDROcodone/APAP 10-325MG [[place] 1 tab PO DAILY 01/14/19 11/08/19 10-325] Lidocaine 5% Oint [Xylocaine 5% 1 applic TOPICAL BID PRN 01/14/19 11/08/19 Oint] Albuterol Sulfate [Proair Hfa] 1 - 2 puff INHALATION RT-Q4H PRN 03/21/19 11/08/19 Aspirin/Acetaminophen/Caffeine 1 - 2 tab PO DAILY PRN 03/21/19 11/08/19 [Excedrin Migraine Caplet] Cyanocobalamin [Vitamin B-12 1,000 mcg SQ Q28D 03/21/19 11/08/19 Injection] Fluticasone Nasal [place] [Flonase 1 spray EA NOSTRIL DAILY 03/21/19 11/08/19 Nasal [place]] Fluticasone Propionate [Flovent 1 puff INHALATION RT-BID PRN 03/21/19 11/08/19 Diskus] diphenhydrAMINE [Benadryl] 50 mg PO HS 03/21/19 11/08/19 Metoprolol Succinate (ER) [Toprol 25 mg PO DAILY 11/08/19 11/08/19 Xl] Ondansetron [Zofran] 4 mg PO TID PRN 11/08/19 11/08/19 Paliperidone [Paliperidone ER] 1.5 mg PO DAILY 11/08/19 11/08/19 Topiramate [Topamax] 100 mg PO BID-W/MEALS 11/08/19 11/08/19 Previous Rx's Medication Instructions Recorded Promethaz-Cod 6.25-10 mg/5 ml 5 ml PO Q6HR PRN #60 ml 03/21/19 [Phenergan with Codeine] Nitrofurantoin Monohyd/M-Cryst 100 mg PO Q12HR #20 cap 11/25/19 [Macrobid] Sulfamethox-Tmp 800-160Mg [Bactrim 1 each PO Q12HR #10 tab 12/14/19 Ds] Allergies Allergy/AdvReac Type Severity Reaction Status Date / Time buprenorphine [From Butrans] Allergy pain Verified 11/25/19 18:16 carisoprodol [From Soma] Allergy Unknown Verified 11/25/19 18:16 chlorpromazine Allergy Unknown Verified 11/25/19 18:16 [From Thorazine] ciprofloxacin [From Cipro] Allergy Unknown Verified 11/25/19 18:16 clonazepam [From Klonopin] Allergy Unknown Verified 11/25/19 18:16 cyclobenzaprine Allergy Unknown Verified 11/25/19 18:16 [From Flexeril] metoclopramide [From Reglan] Allergy Anaphylaxis Verified 11/25/19 18:16 metronidazole [From Flagyl] Allergy Anaphylaxis Verified 11/25/19 18:16 morphine Allergy Rash/Hives Verified 11/25/19 18:16 naproxen Allergy Unknown Verified 11/25/19 18:16 papaya Allergy Rash/Hives Verified 11/25/19 18:16 prednisone Allergy Anaphylaxis Verified 11/25/19 18:16 prochlorperazine Allergy Anaphylaxis Verified 11/25/19 18:16 [From Compazine] red dye Allergy Rash/Hives Verified 11/25/19 18:16 venom-honey bee Allergy Anaphylaxis Verified 11/25/19 18:16 [bee venom (honey bee)] ketorolac [From Toradol] AdvReac Severe Abdominal Verified 11/25/19 18:16 Pain baclofen AdvReac Twitching Verified 11/25/19 18:16 buspirone [From BuSpar] AdvReac Confusion Verified 11/25/19 18:16 ibuprofen [From Motrin] AdvReac Abdominal Verified 11/25/19 18:16 Pain meperidine [From Demerol] AdvReac Rapid Verified 11/25/19 18:16 Heart Rate Phenothiazines AdvReac Altered Verified 11/25/19 18:16 Mental Status Review of Systems ROS Statement: Those systems with pertinent positive or pertinent negative responses have been documented in the HPI. ROS Other: All systems not noted in ROS Statement are negative. Constitutional: Denies: fever, chills Respiratory: Denies: cough, dyspnea Cardiovascular: Denies: chest pain, palpitations, edema Genitourinary: Reports: urgency, dysuria, frequency. Denies: discharge Musculoskeletal: Denies: back pain Skin: Denies: rash Neurological: Denies: headache, weakness Past Medical History Past Medical History: Asthma, Cancer, COPD, GERD/Reflux, Hypertension, Pneumonia, Thyroid Disorder Additional Past Medical History / Comment(s): shingles, RT BREAST LUMPECTOMY/CANCER, THYROID REMOVE, CATARACTS, BRONCHITIS, MONO TEENAGER, LITE CASE OF POLIO AGE 8, MELANOMA SKIN CANCER REMOVED, r shoulder rotator tear History of Any Multi-Drug Resistant Organisms: MRSA Date of last positivie culture/infection: 2009 MDRO Source:: LEFT ULNAR BONE, kidneys Past Surgical History: Appendectomy, Back Surgery, Cholecystectomy, Orthopedic Surgery Additional Past Surgical History / Comment(s): EYE SX FOR LAZY EYE, SX ON TEAR DUCTS, BACK SURGERY MICRO DISC, LT WRIST BROKEN 9 GALLO HAD 13 Surgeries TO CORRECT, left shoulder and humorous shattered from a fall with 2 surgeries to correct, LAPROSCOPIES- BENIGN TUNOR SIZE OF GRAPFRUIT REMOVED AGE 11 OR 1, RT BREAST BX/LUMPECTOMY,LT PINK FINGER SX TO STRAIGHTEN.MELANOMA SKIN CANCER REMOVED. Past Anesthesia/Blood Transfusion Reactions: No Reported Reaction Additional Past Anesthesia/Blood Transfusion Reaction / Comment(s): CLAUST ERPHOBIA Past Psychological History: Anxiety, Depression, PTSD Smoking Status: Never smoker Past Alcohol Use History: Occasional Past Drug Use History: None Reported - Past Family History Mother Family Medical History: Asthma Additional Family Medical History / Comment(s): ETOH/SMOKER Father Family Medical History: Cancer, Liver Disease Additional Family Medical History / Comment(s): ESOPHOGEAL CANCER, ETOH General Exam Limitations: no limitations General appearance: alert, in no apparent distress Head exam: Present: atraumatic, normocephalic Eye exam: Present: normal appearance. Absent: scleral icterus, conjunctival injection Respiratory exam: Present: normal lung sounds bilaterally. Absent: respiratory distress, wheezes, rales, rhonchi, stridor Cardiovascular Exam: Present: regular rate, normal rhythm, normal heart sounds. Absent: systolic murmur, diastolic murmur, rubs, gallop GI/Abdominal exam: Present: soft. Absent: distended, tenderness, guarding, r ebound, rigid, mass Extremities exam: Present: normal inspection, normal capillary refill. Absent: pedal edema, calf tenderness Back exam: Present: normal inspection. Absent: CVA tenderness (R), CVA tenderness (L) Neurological exam: Present: alert Skin exam: Present: warm, dry, intact, normal color. Absent: rash Course Vital Signs 12/13/19 23:54 Temperature 98.4 F Pulse Rate 68 Respiratory 18 Rate Blood Pressure 123/78 O2 Sat by Pulse 98 Oximetry Medical Decision Making - Lab Data Result diagrams: 12/14/19 01:55 12/14/19 01:55 Lab Results 12/14/19 12/14/19 12/14/19 Range/Units 00:23 01:55 01:55 WBC 6.5 (3.8-10.6) k/uL RBC 3.54 L (3.80-5.40) m/uL Hgb 10.9 L (11.4-16.0) gm/dL Hct 35.7 (34.0-46.0) % MCV 100.6 H (80.0-100.0) fL MCH 30.8 (25.0-35.0) pg MCHC 30.6 L (31.0-37.0) g/dL RDW 13.6 (11.5-15.5) % Plt Count 231 (150-450) k/uL Neutrophils % 45 % Lymphocytes % 41 % Monocytes % 7 % Eosinophils % 3 % Basophils % 1 % Neutrophils # 2.9 (1.3-7.7) k/uL Lymphocytes # 2.7 (1.0-4.8) k/uL Monocytes # 0.4 (0-1.0) k/uL Eosinophils # 0.2 (0-0.7) k/uL Basophils # 0.0 (0-0.2) k/uL Hypochromasia Slight Sodium 144 (137-145) mmol/L Potassium 4.3 (3.5-5.1) mmol/L Chloride 115 H (98-107) mmol/L Carbon Dioxide 24 (22-30) mmol/L Anion Gap 5 mmol/L BUN 28 H (7-17) mg/dL Creatinine 1.35 H (0.52-1.04) mg/dL Est GFR (CKD-EPI)AfAm 46 (>60 ml/min/1.73 sqM) Est GFR (CKD-EPI)NonAf 40 (>60 ml/min/1.73 sqM) Glucose 92 (74-99) mg/dL Calcium 8.9 (8.4-10.2) mg/dL Urine Color Dark Brown Urine Appearance Clear (Clear) Urine pH 6.0 (5.0-8.0) Ur Specific [place] 1.027 (1.001-1.035) Urine Protein Trace H (Negative) Urine Glucose (UA) Negative (Negative) Urine Ketones Negative (Negative) Urine Blood Negative (Negative) Urine Nitrite Positive H (Negative) Urine Bilirubin 1+ H (Negative) Urine Urobilinogen 4.0 (<2.0) mg/dL Ur Leukocyte Esterase Moderate H (Negative) Urine RBC 3 (0-5) /hpf Urine WBC 11 H (0-5) /hpf Ur Squamous Epith Cells 1 (0-4) /hpf Urine Mucus Rare H (None) /hpf Disposition Clinical Impression: Urinary tract infection, Renal insufficiency Disposition: HOME SELF-CARE Condition: Good Instructions (If sedation given, give patient instructions): Urinary Tract Infection in Women (ED) Prescriptions: Sulfamethox-Tmp 800-160Mg [Bactrim Ds] 1 each PO Q12HR #10 tab Is patient prescribed a controlled substance at d/c from ED?: No Referrals: Julito Pina MD [Primary Care Provider] - 1-2 days
[2019-12-14 03:35] VITALS: BP 131/68; PULSE 67; RESP 16; TEMP 97.5
== END 2019-12-14 03:37 | disposition home or self-care (01) ==
LOC: EC 23:50
DX: N39.0 Urinary tract infection, site not specified (principal); N28.9 Disorder of kidney and ureter, unspecified; J44.9 Chronic obstructive pulmonary disease, unspecified; I12.9 Hypertensive chronic kidney disease with stage 1 through stage 4 chronic kidney disease, or unspecified chronic kidney disease; N18.3 Chronic kidney disease, stage 3 (moderate); K21.9 Gastro-esophageal reflux disease without esophagitis; E07.9 Disorder of thyroid, unspecified; F41.9 Anxiety disorder, unspecified; F32.9 Major depressive disorder, single episode, unspecified; F43.10 Post-traumatic stress disorder, unspecified; Z85.3 Personal history of malignant neoplasm of breast; Z85.820 Personal history of malignant melanoma of skin; Z86.14 Personal history of Methicillin resistant Staphylococcus aureus infection; Z90.49 Acquired absence of other specified parts of digestive tract; Z79.82 Long term (current) use of aspirin; Z79.890 Hormone replacement therapy; Z79.891 Long term (current) use of opiate analgesic; Z79.51 Long term (current) use of inhaled steroids; Z79.899 Other long term (current) drug therapy; Z88.8 Allergy status to other drugs, medicaments and biological substances; Z88.1 Allergy status to other antibiotic agents; Z88.5 Allergy status to narcotic agent; Z88.6 Allergy status to analgesic agent; Z91.018 Allergy to other foods; Z91.048 Other nonmedicinal substance allergy status; Z91.030 Bee allergy status
CPT/HCPCS: 36415; 80048; 85025; 81001; 87086; 99283; 96374; J1170

== ENCOUNTER 2019-12-17 03:24 | Emergency (ER) | payer MEDICARE, OTHER ==
[2019-12-17 03:37] VITALS: RESP 18
--- NOTE | 2019-12-17 03:54 | ED ---
Allergic Reaction HPI - General Chief complaint: Allergic Reaction Stated complaint: Allergic Reaction Time Seen by Provider: 12/17/19 03:54 Source: patient, EMS Mode of arrival: EMS Limitations: no limitations - History of Present Illness Initial Comments: Patient is a 69-year-old female very extensive psychiatric and medical history who presents to the ER today with concern that she is having an ALLERGIC reaction Patient reports that she was on Bactrim for UTI, she states that starting on Tuesday she noticed a blotchy like hives on her arms chest and face. She took Benadryl but doesn't feel it helped. She states that the hives resolved however when she went to bed tonight she felt like her tongue was swelling at which time she decided to come to the ER however the tongue swelling resolved prior to arrival with EMS. Patient denies any associated fevers, chills, chest pain palpitations or shortness of breath. She denies any wheezing. She has multiple medication ALLERGIES including steroids. - Related Data Home Medications Medication Instructions Recorded Confirmed Aspirin EC [Ecotrin Low Dose] 81 mg PO DAILY 04/09/16 11/08/19 Pantoprazole Sodium [Protonix] 40 mg PO BID 04/09/16 11/08/19 EPINEPHrine [Epipen 2-River] 0.3 mg IM ONCE PRN 11/16/16 11/08/19 Loratadine [Claritin] 10 mg PO DAILY 11/16/16 11/08/19 Methenamine Hippurate [Hiprex] 1 gm PO BID 11/16/16 11/08/19 Montelukast [Singulair] 10 mg PO HS 11/16/16 11/08/19 Nitroglycerin Sl Tabs [Nitrostat] 0.4 mg SUBLINGUAL Q5M PRN 11/16/16 11/08/19 Sucralfate [Carafate] 1 gm PO ACHS 12/13/16 11/08/19 Losartan Potassium 50 mg PO DAILY 09/16/17 11/08/19 diazePAM [Valium] 5 mg PO DAILY PRN 09/16/17 11/08/19 DULoxetine HCL [Cymbalta] 120 mg PO DAILY 04/24/18 11/08/19 Levothyroxine Sodium [Synthroid] 88 mcg PO DAILY 04/24/18 11/08/19 Olopatadine HCl [Pataday] 1 drop BOTH EYES DAILY PRN 08/11/18 11/08/19 buPROPion HCL [Wellbutrin SR] 200 mg PO BID 08/11/18 11/08/19 valACYclovir [Valtrex] 500 mg PO DAILY 08/11/18 11/08/19 Hydrochlorothiazide 12.5 mg PO DAILY 09/12/18 11/08/19 [hydroCHLOROthiazide] Ergocalciferol [Vitamin D2] 50,000 unit PO FR 01/14/19 11/08/19 HYDROcodone/APAP 10-325MG [[place] 1 tab PO DAILY 01/14/19 11/08/19 10-325] Lidocaine 5% Oint [Xylocaine 5% 1 applic TOPICAL BID PRN 01/14/19 11/08/19 Oint] Albuterol Sulfate [Proair Hfa] 1 - 2 puff INHALATION RT-Q4H PRN 03/21/19 11/08/19 Aspirin/Acetaminophen/Caffeine 1 - 2 tab PO DAILY PRN 03/21/19 11/08/19 [Excedrin Migraine Caplet] Cyanocobalamin [Vitamin B-12 1,000 mcg SQ Q28D 03/21/19 11/08/19 Injection] Fluticasone Nasal [place] [Flonase 1 spray EA NOSTRIL DAILY 03/21/19 11/08/19 Nasal [place]] Fluticasone Propionate [Flovent 1 puff INHALATION RT-BID PRN 03/21/19 11/08/19 Diskus] diphenhydrAMINE [Benadryl] 50 mg PO HS 03/21/19 11/08/19 Metoprolol Succinate (ER) [Toprol 25 mg PO DAILY 11/08/19 11/08/19 Xl] Ondansetron [Zofran] 4 mg PO TID PRN 11/08/19 11/08/19 Paliperidone [Paliperidone ER] 1.5 mg PO DAILY 11/08/19 11/08/19 Topiramate [Topamax] 100 mg PO BID-W/MEALS 11/08/19 11/08/19 Previous Rx's Medication Instructions Recorded Promethaz-Cod 6.25-10 mg/5 ml 5 ml PO Q6HR PRN #60 ml 03/21/19 [Phenergan with Codeine] Nitrofurantoin Monohyd/M-Cryst 100 mg PO Q12HR #20 cap 11/25/19 [Macrobid] Sulfamethox-Tmp 800-160Mg [Bactrim 1 each PO Q12HR #10 tab 12/14/19 Ds] Allergies Allergy/AdvReac Type Severity Reaction Status Date / Time buprenorphine [From Butrans] Allergy pain Verified 12/17/19 03:33 carisoprodol [From Soma] Allergy Unknown Verified 12/17/19 03:33 chlorpromazine Allergy Unknown Verified 12/17/19 03:33 [From Thorazine] ciprofloxacin [From Cipro] Allergy Unknown Verified 12/17/19 03:33 clonazepam [From Klonopin] Allergy Unknown Verified 12/17/19 03:33 cyclobenzaprine Allergy Unknown Verified 12/17/19 03:33 [From Flexeril] metoclopramide [From Reglan] Allergy Anaphylaxis Verified 12/17/19 03:33 metronidazole [From Flagyl] Allergy Anaphylaxis Verified 12/17/19 03:33 morphine Allergy Rash/Hives Verified 12/17/19 03:33 naproxen Allergy Unknown Verified 12/17/19 03:33 papaya Allergy Rash/Hives Verified 12/17/19 03:33 prednisone Allergy Anaphylaxis Verified 12/17/19 03:33 prochlorperazine Allergy Anaphylaxis Verified 12/17/19 03:33 [From Compazine] red dye Allergy Rash/Hives Verified 12/17/19 03:33 venom-honey bee Allergy Anaphylaxis Verified 12/17/19 03:33 [bee venom (honey bee)] ketorolac [From Toradol] AdvReac Severe Abdominal Verified 12/17/19 03:33 Pain baclofen AdvReac Twitching Verified 12/17/19 03:33 buspirone [From BuSpar] AdvReac Confusion Verified 12/17/19 03:33 ibuprofen [From Motrin] AdvReac Abdominal Verified 12/17/19 03:33 Pain meperidine [From Demerol] AdvReac Rapid Verified 12/17/19 03:33 Heart Rate Phenothiazines AdvReac Altered Verified 12/17/19 03:33 Mental Status Review of Systems ROS Statement: Those systems with pertinent positive or pertinent negative responses have been documented in the HPI. ROS Other: All systems not noted in ROS Statement are negative. Past Medical History Past Medical History: Asthma, Cancer, COPD, GERD/Reflux, Hypertension, Pneumonia, Thyroid Disorder Additional Past Medical History / Comment(s): shingles, RT BREAST LUMPECTOMY/CANCER, THYROID REMOVE, CATARACTS, BRONCHITIS, MONO TEENAGER, LITE CASE OF POLIO AGE 8, MELANOMA SKIN CANCER REMOVED, r shoulder rotator tear History of Any Multi-Drug Resistant Organisms: MRSA Date of last positivie culture/infection: 2009 MDRO Source:: LEFT ULNAR BONE, kidneys Past Surgical History: Appendectomy, Back Surgery, Cholecystectomy, Orthopedic Surgery Additional Past Surgical History / Comment(s): EYE SX FOR LAZY EYE, SX ON TEAR DUCTS, BACK SURGERY MICRO DISC, LT WRIST BROKEN 9 GALLO HAD 13 Surgeries TO CORRECT, left shoulder and humorous shattered from a fall with 2 surgeries to co rrect, LAPROSCOPIES- BENIGN TUNOR SIZE OF GRAPFRUIT REMOVED AGE 11 OR 1, RT BREAST BX/LUMPECTOMY,LT PINK FINGER SX TO STRAIGHTEN.MELANOMA SKIN CANCER REMOVED. Past Anesthesia/Blood Transfusion Reactions: No Reported Reaction Additional Past Anesthesia/Blood Transfusion Reaction / Comment(s): CLAUSTERPHOBIA Past Psychological History: Anxiety, Depression, PTSD Smoking Status: Never smoker Past Alcohol Use History: Occasional Past Drug Use History: None Reported - Past Family History Mother Family Medical History: Asthma Additional Family Medical History / Comment(s): ETOH/SMOKER Father Family Medical History: Cancer, Liver Disease Additional Family Medical History / Comment(s): ESOPHOGEAL CANCER, ETOH General Exam - General Exam Comments Initial Comments: Physical Exam GENERAL: Patient is well-developed and well-nourished. Patient is nontoxic and well- hydrated and is in no distress. HENT: Normocephalic, Atraumatic. EYES: PERRL, EOMI PULMONARY: Unlabored respirations. No audible rales rhonchi or wheezing was noted. CARDIOVASCULAR: There is a regular rate and rhythm without any murmurs gallops or rubs. ABDOMEN: Soft and nontender with normal bowel sounds. SKIN: Skin is clear with no lesions or rashes and otherwise unremarkable. : Deferred NEUROLOGIC: Patient is alert and oriented x3. Moving all extremities spontaneously MUSCULOSKELETAL: Normal extremities with adequate strength and full range of motion. No lower extremity swelling or edema. No calf tenderness. PSYCHIATRIC: Anxious Limitations: no limitations Course Vital Signs 12/17/19 12/17/19 03:26 03:34 Temperature 98.3 F Pulse Rate 62 Respiratory 16 18 Rate Blood Pressure 125/87 O2 Sat by Pulse 99 Oximetry Medical Decision Making - Medical Decision Making The patient was seen and evaluated history is obtained from the patient History and physical exam are relatively unremarkable patient's concern she's having ALLERGIC reaction there is no physical exam findings to suggest this She was observed for 90 minutes with no change in her condition continued to be asymptomatic at this time patient's clear for discharge home and advised to stop taking Benadryl she has not taken any since Tuesday morning. Patient was advised to take Benadryl for any recurrent symptoms or return to the ER if she has any tongue swelling, shortness of breath, blistering or skin sloughing or any new or concerning symptoms. Disposition Clinical Impression: Medication reaction Disposition: HOME SELF-CARE Condition: Stable Instructions (If sedation given, give patient instructions): Antibiotic Medication Allergy (ED) Is patient prescribed a controlled substance at d/c from ED?: No Referrals: Julito Pina MD [Primary Care Provider] - 1-2 days
[2019-12-17 05:21] VITALS: BP 122/76; PULSE 69; TEMP 97.1
== END 2019-12-17 05:20 | disposition home or self-care (01) ==
LOC: EC 03:24
DX: T36.8X5A Adverse effect of other systemic antibiotics, initial encounter (principal); J44.9 Chronic obstructive pulmonary disease, unspecified; I10 Essential (primary) hypertension; K21.9 Gastro-esophageal reflux disease without esophagitis; F32.9 Major depressive disorder, single episode, unspecified; F41.9 Anxiety disorder, unspecified; E07.9 Disorder of thyroid, unspecified; Z79.82 Long term (current) use of aspirin; Z79.890 Hormone replacement therapy; Z79.899 Other long term (current) drug therapy; Z79.51 Long term (current) use of inhaled steroids; Z88.8 Allergy status to other drugs, medicaments and biological substances; Z88.5 Allergy status to narcotic agent; Z88.6 Allergy status to analgesic agent; Z91.030 Bee allergy status; Z91.018 Allergy to other foods; Z88.1 Allergy status to other antibiotic agents; Z85.820 Personal history of malignant melanoma of skin
CPT/HCPCS: 99283

== ENCOUNTER 2020-02-28 11:10 | Emergency (ER) | payer MEDICARE, OTHER ==
[2020-02-28 11:17] VITALS: RESP 18; TEMP 98.7
[2020-02-28] MEDS ORDERED: SODIUM CHLORIDE 0.9% 1,000 ML IV STA (11:42)
[2020-02-28 12:04] LABS: Appearance,Urine Clear (Clear); Bilirubin,Urine Negative (Negative); Blood,Urine Negative (Negative); Color,Urine Yellow; Glucose,Urine (UA) Negative (Negative); Hyaline Casts,Urine 1 /lpf (0-2); Ketones,Urine Negative (Negative); Leukocyte Esterase,Urine Moderate (Negative); Mucus,Urine Rare /hpf; Nitrite,Urine Negative (Negative); PH, Urine 5.5 (5.0-8.0); Protein,Urine Negative (Negative); RBC,Urine 1 /hpf (0-5); Specific Gravity,Urine 1.024 (1.001-1.035); Squamous Epithelial Cell,Urine <1 /hpf (0-4); Urobilinogen,Urine <2.0 mg/dL (<2.0); WBC,Urine 4 /hpf (0-5)
[2020-02-28 12:06] LABS: Basophils % (A) 0 %; Eosinophils # (A) 0.2 k/uL (0-0.7); Eosinophils % (A) 2 %; HCT 39.2 % (34.0-46.0); HGB 12.1 gm/dL (11.4-16.0); Lymphocytes # (A) 1.7 k/uL (1.0-4.8); Lymphocytes % (A) 26 %; MCH 30.6 pg (25.0-35.0); MCHC 30.9 g/dL (31.0-37.0); MCV 99.3 fL (80.0-100.0); Macrocytosis Slight; Mean Platelet Volume 8.7; Monocytes # (A) 0.3 k/uL (0-1.0); Monocytes % (A) 4 %; Neutrophils # (A) 4.3 k/uL (1.3-7.7); Neutrophils % (A) 65 %; Platelet Count 294 k/uL (150-450); RBC 3.95 m/uL (3.80-5.40); RDW 14.7 % (11.5-15.5); WBC 6.6 k/uL (3.8-10.6)
--- NOTE | 2020-02-28 12:15 | ED ---
Female Urogenital HPI - General Chief complaint: Urogenital Stated complaint: UTI Time Seen by Provider: 02/28/20 11:19 Source: patient, RN notes reviewed, old records reviewed Mode of arrival: ambulatory Limitations: no limitations - History of Present Illness Initial comments: Patient is a 69-year-old female who presents emergency department today for evaluation with chief complaint of dysuria for the past day. She has another UTI. Chills complains of flank pain for the past 3 days. She reports that she's had a history of stage II kidney disease. She reports she's been treated for multiple urinary tract infections for the past 6 months.. She reports that she's been falling with nephrology and infectious disease. She last finished Keflex within the last few weeks. She denies any recorded fevers or chills. - Related Data Home Medications Medication Instructions Recorded Confirmed Aspirin EC [Ecotrin Low Dose] 81 mg PO DAILY 04/09/16 11/08/19 Pantoprazole Sodium [Protonix] 40 mg PO BID 04/09/16 11/08/19 EPINEPHrine [Epipen 2-River] 0.3 mg IM ONCE PRN 11/16/16 11/08/19 Loratadine [Claritin] 10 mg PO DAILY 11/16/16 11/08/19 Methenamine Hippurate [Hiprex] 1 gm PO BID 11/16/16 11/08/19 Montelukast [Singulair] 10 mg PO HS 11/16/16 11/08/19 Nitroglycerin Sl Tabs [Nitrostat] 0.4 mg SUBLINGUAL Q5M PRN 11/16/16 11/08/19 Sucralfate [Carafate] 1 gm PO ACHS 12/13/16 11/08/19 Losartan Potassium 50 mg PO DAILY 09/16/17 11/08/19 diazePAM [Valium] 5 mg PO DAILY PRN 09/16/17 11/08/19 DULoxetine HCL [Cymbalta] 120 mg PO DAILY 04/24/18 11/08/19 Levothyroxine Sodium [Synthroid] 88 mcg PO DAILY 04/24/18 11/08/19 Olopatadine HCl [Pataday] 1 drop BOTH EYES DAILY PRN 08/11/18 11/08/19 buPROPion HCL [Wellbutrin SR] 200 mg PO BID 08/11/18 11/08/19 valACYclovir [Valtrex] 500 mg PO DAILY 08/11/18 11/08/19 Hydrochlorothiazide 12.5 mg PO DAILY 09/12/18 11/08/19 [hydroCHLOROthiazide] Ergocalciferol [Vitamin D2] 50,000 unit PO FR 01/14/19 11/08/19 HYDROcodone/APAP 10-325MG [[place] 1 tab PO DAILY 01/14/19 11/08/19 10-325] Lidocaine 5% Oint [Xylocaine 5% 1 applic TOPICAL BID PRN 01/14/19 11/08/19 Oint] Albuterol Sulfate [Proair Hfa] 1 - 2 puff INHALATION RT-Q4H PRN 03/21/19 11/08/19 Aspirin/Acetaminophen/Caffeine 1 - 2 tab PO DAILY PRN 03/21/19 11/08/19 [Excedrin Migraine Caplet] Cyanocobalamin [Vitamin B-12 1,000 mcg SQ Q28D 03/21/19 11/08/19 Injection] Fluticasone Nasal [place] [Flonase 1 spray EA NOSTRIL DAILY 03/21/19 11/08/19 Nasal [place]] Fluticasone Propionate [Flovent 1 puff INHALATION RT-BID PRN 03/21/19 11/08/19 Diskus] diphenhydrAMINE [Benadryl] 50 mg PO HS 03/21/19 11/08/19 Metoprolol Succinate (ER) [Toprol 25 mg PO DAILY 11/08/19 11/08/19 Xl] Ondansetron [Zofran] 4 mg PO TID PRN 11/08/19 11/08/19 Paliperidone [Paliperidone ER] 1.5 mg PO DAILY 11/08/19 11/08/19 Topiramate [Topamax] 100 mg PO BID-W/MEALS 11/08/19 11/08/19 Previous Rx's Medication Instructions Recorded Promethaz-Cod 6.25-10 mg/5 ml 5 ml PO Q6HR PRN #60 ml 03/21/19 [Phenergan with Codeine] Nitrofurantoin Monohyd/M-Cryst 100 mg PO Q12HR #20 cap 11/25/19 [Macrobid] Sulfamethox-Tmp 800-160Mg [Bactrim 1 each PO Q12HR #10 tab 12/14/19 Ds] Allergies Allergy/AdvReac Type Severity Reaction Status Date / Time buprenorphine [From Butrans] Allergy pain Verified 02/28/20 11:17 carisoprodol [From Soma] Allergy Unknown Verified 02/28/20 11:17 chlorpromazine Allergy Unknown Verified 02/28/20 11:17 [From Thorazine] ciprofloxacin [From Cipro] Allergy Unknown Verified 02/28/20 11:17 clonazepam [From Klonopin] Allergy Unknown Verified 02/28/20 11:17 cyclobenzaprine Allergy Unknown Verified 02/28/20 11:17 [From Flexeril] metoclopramide [From Reglan] Allergy Anaphylaxis Verified 02/28/20 11:17 metronidazole [From Flagyl] Allergy Anaphylaxis Verified 02/28/20 11:17 morphine Allergy Rash/Hives Verified 02/28/20 11:17 naproxen Allergy Unknown Verified 02/28/20 11:17 papaya Allergy Rash/Hives Verified 02/28/20 11:17 prednisone Allergy Anaphylaxis Verified 02/28/20 11:17 prochlorperazine Allergy Anaphylaxis Verified 02/28/20 11:17 [From Compazine] red dye Allergy Rash/Hives Verified 02/28/20 11:17 venom-honey bee Allergy Anaphylaxis Verified 02/28/20 11:17 [bee venom (honey bee)] ketorolac [From Toradol] AdvReac Severe Abdominal Verified 02/28/20 11:17 Pain baclofen AdvReac Twitching Verified 02/28/20 11:17 buspirone [From BuSpar] AdvReac Confusion Verified 02/28/20 11:17 ibuprofen [From Motrin] AdvReac Abdominal Verified 02/28/20 11:17 Pain meperidine [From Demerol] AdvReac Rapid Verified 02/28/20 11:17 Heart Rate Phenothiazines AdvReac Altered Verified 02/28/20 11:17 Mental Status Review of Systems ROS Statement: Those systems with pertinent positive or pertinent negative responses have been documented in the HPI. ROS Other: All systems not noted in ROS Statement are negative. Past Medical History Past Medical History: Asthma, Cancer, COPD, GERD/Reflux, Hypertension, Pneumonia, Thyroid Disorder Additional Past Medical History / Comment(s): shingles, RT BREAST LUMPECTOMY/CANCER, THYROID REMOVE, CATARACTS, BRONCHITIS, MONO TEENAGER, LITE CASE OF POLIO AGE 8, MELANOMA SKIN CANCER REMOVED, r shoulder rotator tear History of Any Multi-Drug Resistant Organisms: MRSA Date of last positivie culture/infection: 2009 MDRO Source:: LEFT ULNAR BONE, kidneys Past Surgical History: Appendectomy, Back Surgery, Cholecystectomy, Orthopedic Surgery Additional Past Surgical History / Comment(s): EYE SX FOR LAZY EYE, SX ON TEAR DUCTS, BACK SURGERY MICRO DISC, LT WRIST BROKEN 9 GALLO HAD 13 Surgeries TO CORRECT, left shoulder and humorous shattered from a fall with 2 surgeries to correct, LAPROSCOPIES- BENIGN TUNOR SIZE OF GRAPFRUIT REMOVED AGE 11 OR 1, RT BREAST BX/LUMPECTOMY,LT PINK FINGER SX TO STRAIGHTEN.MELANOMA SKIN CANCER REMOVED. Past Anesthesia/Blood Transfusion Reactions: No Reported Reaction Additional Past Anesthesia/Blood Transfusion Reaction / Comment(s): CLAUSTERPHOBIA Past Psychological History: Anxiety, Depression, PTSD Smoking Status: Never smoker Past Alcohol Use History: Occasional Past Drug Use History: None Reported - Past Family History Mother Family Medical History: Asthma Additional Family Medical History / Comment(s): ETOH/SMOKER Father Family Medical History: Cancer, Liver Disease Additional Family Medical History / Comment(s): ESOPHOGEAL CANCER, ETOH General Exam - General Exam Comments Initial Comments: alert and oriented 69-year-old female. No distress. Limitations: no limitations General appearance: alert, in no apparent distress Head exam: Present: atraumatic, normocephalic, normal inspection Eye exam: Present: normal appearance, PERRL, EOMI. Absent: scleral icterus, conjunctival injection, periorbital swelling ENT exam: Present: normal exam, mucous membranes moist Neck exam: Present: normal inspection. Absent: tenderness, meningismus, lymphadenopathy Respiratory exam: Present: normal lung sounds bilaterally. Absent: respiratory distress, wheezes, rales, rhonchi, stridor Cardiovascular Exam: Present: regular rate, normal rhythm, normal heart sounds. Absent: systolic murmur, diastolic murmur, rubs, gallop, clicks GI/Abdominal exam: Present: soft, normal bowel sounds. Absent: distended, tenderness, guarding, rebound, rigid Extremities exam: Present: normal inspection, full ROM, normal capillary refill. Absent: tenderness, pedal edema, joint swelling, calf tenderness Back exam: Present: normal inspection Neurological exam: Present: alert, oriented X3, CN II-XII intact Psychiatric exam: Present: normal affect, normal mood Course Vital Signs 02/28/20 02/28/20 02/28/20 11:13 13:14 13:58 Temperature 98.7 F 98.7 F Pulse Rate 62 64 61 Respiratory 18 18 18 Rate Blood Pressure 137/85 119/62 124/74 O2 Sat by Pulse 98 100 100 Oximetry Medical Decision Making - Medical Decision Making 69 year old female with dysuria for one day. She has history of recurrent uti's. She complains of some flank pain on the right, andreports she is unsure if this pain is kidney related vs musculosketal. Labs including UA are unremarkable. Discussed urine culture to be completed before starting antibiotics. PT will follow up with PCP. - Lab Data Result diagrams: 02/28/20 11:50 02/28/20 11:50 Lab Results 02/28/20 02/28/20 02/28/20 Range/Units 11:50 11:50 11:50 WBC 6.6 (3.8-10.6) k/uL RBC 3.95 (3.80-5.40) m/uL Hgb 12.1 (11.4-16.0) gm/dL Hct 39.2 (34.0-46.0) % MCV 99.3 (80.0-100.0) fL MCH 30.6 (25.0-35.0) pg MCHC 30.9 L (31.0-37.0) g/dL RDW 14.7 (11.5-15.5) % Plt Count 294 (150-450) k/uL Neutrophils % 65 % Lymphocytes % 26 % Monocytes % 4 % Eosinophils % 2 % Basophils % 0 % Neutrophils # 4.3 (1.3-7.7) k/uL Lymphocytes # 1.7 (1.0-4.8) k/uL Monocytes # 0.3 (0-1.0) k/uL Eosinophils # 0.2 (0-0.7) k/uL Basophils # 0.0 (0-0.2) k/uL Macrocytosis Slight PT 9.5 (9.0-12.0) sec INR 0.9 (<1.2) APTT 22.2 (22.0-30.0) sec Sodium (137-145) mmol/L Potassium (3.5-5.1) mmol/L Chloride (98-107) mmol/L Carbon Dioxide (22-30) mmol/L Anion Gap mmol/L BUN (7-17) mg/dL Creatinine (0.52-1.04) mg/dL Est GFR (CKD-EPI)AfAm (>60 ml/min/1.73 sqM) Est GFR (CKD-EPI)NonAf (>60 ml/min/1.73 sqM) Glucose (74-99) mg/dL Plasma Lactic Acid [place] (0.7-2.0) mmol/L Calcium (8.4-10.2) mg/dL Total Bilirubin (0.2-1.3) mg/dL AST (14-36) U/L ALT (4-34) U/L Alkaline Phosphatase (38-126) U/L Total Protein (6.3-8.2) g/dL Albumin (3.5-5.0) g/dL Amylase (30-110) U/L Lipase (23-300) U/L Urine Color Yellow Urine Appearance Clear (Clear) Urine pH 5.5 (5.0-8.0) Ur Specific [place] 1.024 (1.001-1.035) Urine Protein Negative (Negative) Urine Glucose (UA) Negative (Negative) Urine Ketones Negative (Negative) Urine Blood Negative (Negative) Urine Nitrite Negative (Negative) Urine Bilirubin Negative (Negative) Urine Urobilinogen <2.0 (<2.0) mg/dL Ur Leukocyte Esterase Moderate H (Negative) Urine RBC 1 (0-5) /hpf Urine WBC 4 (0-5) /hpf Ur Squamous Epith Cells <1 (0-4) /hpf Hyaline Casts 1 (0-2) /lpf Urine Mucus Rare H (None) /hpf 02/28/20 02/28/20 Range/Units 11:50 11:50 WBC (3.8-10.6) k/uL RBC (3.80-5.40) m/uL Hgb (11.4-16.0) gm/dL Hct (34.0-46.0) % MCV (80.0-100.0) fL MCH (25.0-35.0) pg MCHC (31.0-37.0) g/dL RDW (11.5-15.5) % Plt Count (150-450) k/uL Neutrophils % % Lymphocytes % % Monocytes % % Eosinophils % % Basophils % % Neutrophils # (1.3-7.7) k/uL Lymphocytes # (1.0-4.8) k/uL Monocytes # (0-1.0) k/uL Eosinophils # (0-0.7) k/uL Basophils # (0-0.2) k/uL Macrocytosis PT (9.0-12.0) sec INR (<1.2) APTT (22.0-30.0) sec Sodium 139 (137-145) mmol/L Potassium 4.5 (3.5-5.1) mmol/L Chloride 111 H (98-107) mmol/L Carbon Dioxide 21 L (22-30) mmol/L Anion Gap 7 mmol/L BUN 26 H (7-17) mg/dL Creatinine 1.18 H (0.52-1.04) mg/dL Est GFR (CKD-EPI)AfAm 54 (>60 ml/min/1.73 sqM) Est GFR (CKD-EPI)NonAf 47 (>60 ml/min/1.73 sqM) Glucose 88 (74-99) mg/dL Plasma Lactic Acid [place] 0.7 (0.7-2.0) mmol/L Calcium 9.2 (8.4-10.2) mg/dL Total Bilirubin 0.6 (0.2-1.3) mg/dL AST 38 H (14-36) U/L ALT 27 (4-34) U/L Alkaline Phosphatase 123 (38-126) U/L Total Protein 7.2 (6.3-8.2) g/dL Albumin 4.3 (3.5-5.0) g/dL Amylase 78 (30-110) U/L Lipase 76 (23-300) U/L Urine Color Urine Appearance (Clear) Urine pH (5.0-8.0) Ur Specific [place] (1.001-1.035) Urine Protein (Negative) Urine Glucose (UA) (Negative) Urine Ketones (Negative) Urine Blood (Negative) Urine Nitrite (Negative) Urine Bilirubin (Negative) Urine Urobilinogen (<2.0) mg/dL Ur Leukocyte Esterase (Negative) Urine RBC (0-5) /hpf Urine WBC (0-5) /hpf Ur Squamous Epith Cells (0-4) /hpf Hyaline Casts (0-2) /lpf Urine Mucus (None) /hpf - Radiology Data Radiology results: report reviewed Normal bowel gas pattern. Disposition Clinical Impression: Flank pain Disposition: HOME SELF-CARE Condition: Good Instructions (If sedation given, give patient instructions): Flank Pain (ED) Additional Instructions: Patient advised to follow-up with her primary care doctor. Patient's urinalysis does not show significant infection at this time. Urine culture will be completed. Is patient prescribed a controlled substance at d/c from ED?: No Referrals: Julito Pina MD [Primary Care Provider] - 1-2 days Time of Disposition: 13:42
[2020-02-28 12:17] LABS: Calcium 9.2 mg/dL (8.4-10.2); Total Bilirubin 0.6 mg/dL (0.2-1.3)
[2020-02-28 12:19] LABS: Albumin 4.3 g/dL (3.5-5.0); Potassium 4.5 mmol/L (3.5-5.1); Total Protein 7.2 g/dL (6.3-8.2)
[2020-02-28 12:43] LABS: INR 0.9 (<1.2); Partial Thromboplastin Time 22.2 sec (22.0-30.0); Prothrombin Time 9.5 sec (9.0-12.0)
[2020-02-28] MEDS ORDERED: HYDROmorphone 0.5 MG/0.5 ML SYRINGE IVP STA (13:00)
--- NOTE | 2020-02-28 13:19 | XR ---
EXAMINATION TYPE: XR KUB DATE OF EXAM: 02/28/2020 1:08 PM CLINICAL HISTORY: Abdominal pain. TECHNIQUE: Two Upright KUB images of the abdomen are obtained. COMPARISON: CT May 04, 2016. FINDINGS: Scattered gas is seen in non-distended stomach and small bowel loops. Gas and fecal materia l is seen in non-distended colon and rectum. Cholecystectomy clips are redemonstrated. No pneumoperit oneum. Lung bases are clear. Underlying scoliotic curvature. IMPRESSION: Overall nonobstructive bowel gas pattern.
[2020-02-28 14:01] VITALS: BP 124/74; PULSE 61
== END 2020-02-28 14:03 | disposition home or self-care (01) ==
LOC: EC 11:10
DX: R10.9 Unspecified abdominal pain (principal); R30.0 Dysuria; J44.9 Chronic obstructive pulmonary disease, unspecified; I10 Essential (primary) hypertension; K21.9 Gastro-esophageal reflux disease without esophagitis; E07.9 Disorder of thyroid, unspecified; F41.9 Anxiety disorder, unspecified; F32.9 Major depressive disorder, single episode, unspecified; Z85.828 Personal history of other malignant neoplasm of skin; Z85.820 Personal history of malignant melanoma of skin; Z90.89 Acquired absence of other organs; Z90.49 Acquired absence of other specified parts of digestive tract; Z79.890 Hormone replacement therapy; Z79.51 Long term (current) use of inhaled steroids; Z79.899 Other long term (current) drug therapy; Z79.82 Long term (current) use of aspirin; Z88.8 Allergy status to other drugs, medicaments and biological substances; Z88.1 Allergy status to other antibiotic agents; Z88.5 Allergy status to narcotic agent; Z88.6 Allergy status to analgesic agent; Z91.018 Allergy to other foods; Z91.030 Bee allergy status
CPT/HCPCS: 36415; 80053; 82150; 83605; 83690; 85025; 85610; 85730; 81001; 87086; 74018; 99284; 96374; 96361; J1170

== ENCOUNTER → 2020-03-27 | Outpatient (CLI) | payer MEDICARE, OTHER ==
[2020-03-28 09:22] VITALS: BMI 24.2
== END | disposition home or self-care (01) ==
LOC: DBWHC3 13:02
PROVIDERS: ATTEND Family Medicine
DX: N19 Unspecified kidney failure (principal)
CPT/HCPCS: 97802

== ENCOUNTER 2020-12-12 11:12 | Emergency (ER) | payer MEDICARE, OTHER ==
[2020-12-12] MEDS ORDERED: HYDROmorphone 0.5 MG/0.5 ML SYRINGE IM STA (11:40)
--- NOTE | 2020-12-12 11:40 | ED ---
General Adult HPI - General Chief complaint: Extremity Injury, Lower Stated complaint: fall, knee & toe pain Time Seen by Provider: 12/12/20 11:17 Source: patient, RN notes reviewed Mode of arrival: wheelchair Limitations: no limitations - History of Present Illness Initial comments: Patient is a pleasant 70-year-old female presenting to the emergency Department with complaints of right knee and left toe pain. Patient did have a fall 5 days ago. Patient landed on her right knee and left foot. Patient is having discomfort in any specific area since that time. Patient does have history of chronic knee problems. Patient is ambulatory with pain. Patient requests pain medication. No head injury or loss of consciousness. No neck pain. - Related Data Home Medications Medication Instructions Recorded Confirmed Aspirin EC [Ecotrin Low Dose] 81 mg PO DAILY 04/09/16 12/12/20 Pantoprazole Sodium [Protonix] 40 mg PO BID 04/09/16 12/12/20 EPINEPHrine [Epipen 2-River] 0.3 mg IM ONCE PRN 11/16/16 12/12/20 Nitroglycerin Sl Tabs [Nitrostat] 0.4 mg SUBLINGUAL Q5M PRN 11/16/16 12/12/20 Sucralfate [Carafate] 1 gm PO ACHS 12/13/16 12/12/20 Losartan Potassium 50 mg PO DAILY 09/16/17 12/12/20 diazePAM [Valium] 5 mg PO DAILY PRN 09/16/17 12/12/20 DULoxetine HCL [Cymbalta] 120 mg PO DAILY 04/24/18 12/12/20 Levothyroxine Sodium [Synthroid] 88 mcg PO DAILY 04/24/18 12/12/20 Olopatadine HCl [Pataday] 1 drop BOTH EYES DAILY PRN 08/11/18 12/12/20 buPROPion HCL [Wellbutrin SR] 200 mg PO BID 08/11/18 12/12/20 Hydrochlorothiazide 12.5 mg PO DAILY 09/12/18 12/12/20 [hydroCHLOROthiazide] Ergocalciferol [Vitamin D2] 50,000 unit PO FR 01/14/19 12/12/20 HYDROcodone/APAP 10-325MG [[place] 1 tab PO TID PRN 01/14/19 12/12/20 10-325] Lidocaine 5% Oint [Xylocaine 5% 1 applic TOPICAL BID PRN 01/14/19 12/12/20 Oint] Albuterol Sulfate [Proair Hfa] 1 - 2 puff INHALATION RT-Q4H PRN 03/21/19 12/12/20 Fluticasone Nasal [place] [Flonase 1 spray EA NOSTRIL BID 03/21/19 12/12/20 Nasal [place]] diphenhydrAMINE [Benadryl] 50 mg PO HS 03/21/19 12/12/20 Metoprolol Succinate (ER) [Toprol 50 mg PO DAILY 11/08/19 12/12/20 Xl] Ondansetron [Zofran] 4 mg PO Q8H PRN 11/08/19 12/12/20 Topiramate [Topamax] 100 mg PO BID-W/MEALS 11/08/19 12/12/20 Albuterol Nebulized [Ventolin 2.5 mg INHALATION RT-Q4H PRN 12/12/20 12/12/20 Nebulized] Ascorbic Acid [Vitamin C] 500 mg PO DAILY 12/12/20 12/12/20 Biotin Gummie 1 tab PO DAILY 12/12/20 12/12/20 Fexofenadine HCl [[place] Allergy] 180 mg PO DAILY 12/12/20 12/12/20 Hydrocortisone Oint 1 applic TOPICAL BID 12/12/20 12/12/20 [Hydrocortisone 2.5% Oint] Multivit/Folic Acid/Vit K1 1 tab PO DAILY 12/12/20 12/12/20 [One-A-Day Women's 50 Plus Tab] Vitamin E [Vitamin E (1000 Iu = 1,000 unit PO DAILY 12/12/20 12/12/20 450 MG)] valACYclovir HCL [Valtrex] 1,000 mg PO BID 12/12/20 12/12/20 Allergies Allergy/AdvReac Type Severity Reaction Status Date / Time buprenorphine [From Butrans] Allergy pain Verified 12/12/20 12:51 carisoprodol [From Soma] Allergy Unknown Verified 12/12/20 12:51 chlorpromazine Allergy Unknown Verified 12/12/20 12:51 [From Thorazine] ciprofloxacin [From Cipro] Allergy Unknown Verified 12/12/20 12:51 clonazepam [From Klonopin] Allergy Unknown Verified 12/12/20 12:51 cyclobenzaprine Allergy Unknown Verified 12/12/20 12:51 [From Flexeril] metoclopramide [From Reglan] Allergy Anaphylaxis Verified 12/12/20 12:51 metronidazole [From Flagyl] Allergy Anaphylaxis Verified 12/12/20 12:51 morphine Allergy Rash/Hives Verified 12/12/20 12:51 naproxen Allergy Unknown Verified 12/12/20 12:51 papaya Allergy Rash/Hives Verified 12/12/20 12:51 prednisone Allergy Anaphylaxis Verified 12/12/20 12:51 prochlorperazine Allergy Anaphylaxis Verified 12/12/20 12:51 [From Compazine] red dye Allergy Rash/Hives Verified 12/12/20 12:51 venom-honey bee Allergy Anaphylaxis Verified 12/12/20 12:51 [bee venom (honey bee)] ketorolac [From Toradol] AdvReac Severe Abdominal Verified 12/12/20 12:51 Pain baclofen AdvReac Twitching Verified 12/12/20 12:51 buspirone [From BuSpar] AdvReac Confusion Verified 12/12/20 12:51 ibuprofen [From Motrin] AdvReac Abdominal Verified 12/12/20 12:51 Pain meperidine [From Demerol] AdvReac Rapid Verified 12/12/20 12:51 Heart Rate Phenothiazines AdvReac Altered Verified 12/12/20 12:51 Mental Status Review of Systems ROS Statement: Those systems with pertinent positive or pertinent negative responses have been documented in the HPI. ROS Other: All systems not noted in ROS Statement are negative. Constitutional: Denies: fever Eyes: Denies: eye pain ENT: Denies: ear pain Respiratory: Denies: cough Cardiovascular: Denies: chest pain Endocrine: Denies: fatigue Gastrointestinal: Denies: abdominal pain Genitourinary: Denies: dysuria Musculoskeletal: Reports: as per HPI Skin: Denies: rash Neurological: Denies: weakness Past Medical History Past Medical History: Asthma, Cancer, COPD, GERD/Reflux, Hypertension, Pneumonia, Thyroid Disorder Additional Past Medical History / Comment(s): shingles, RT BREAST LUMPECTOMY/CANCER, THYROID REMOVE, CATARACTS, BRONCHITIS, MONO TEENAGER, LITE CASE OF POLIO AGE 8, MELANOMA SKIN CANCER REMOVED, r shoulder rotator tear History of Any Multi-Drug Resistant Organisms: MRSA Date of last positivie culture/infection: 2009 MDRO Source:: LEFT ULNAR BONE, kidneys Past Surgical History: Appendectomy, Back Surgery, Cholecystectomy, Orthopedic Surgery Additional Past Surgical History / Comment(s): EYE SX FOR LAZY EYE, SX ON TEAR DUCTS, BACK SURGERY MICRO DISC, LT WRIST BROKEN 7 GALLO HAD 13 Surgeries TO CORRECT, left shoulder and humorous shattered from a fall with 2 surgeries to correct, LAPROSCOPIES- BENIGN TUNOR SIZE OF GRAPFRUIT REMOVED AGE 11 OR 1, RT BREAST BX/LUMPECTOMY,LT PINK FINGER SX TO STRAIGHTEN.MELANOMA SKIN CANCER REMOVED. Past Anesthesia/Blood Transfusion Reactions: No Reported Reaction Additional Past Anesthesia/Blood Transfusion Reaction / Comment(s): CLAUSTERPHOBIA Past Psychological History: Anxiety, Depression, PTSD Smoking Status: Never smoker Past Alcohol Use History: Occasional Past Drug Use History: None Reported - Past Family History Mother Family Medical History: Asthma Additional Family Medical History / Comment(s): ETOH/SMOKER Father Family Medical History: Cancer, Liver Disease Additional Family Medical History / Comment(s): ESOPHOGEAL CANCER, ETOH General Exam Limitations: no limitations General appearance: alert, in no apparent distress Head exam: Present: atraumatic, normocephalic Eye exam: Present: normal appearance Neck exam: Present: normal inspection. Absent: tenderness Respiratory exam: Present: normal lung sounds bilaterally Cardiovascular Exam: Present: regular rate, normal rhythm Expanded Peripheral pulses: 2+: Dorsalis Pedis (R), Dorsalis Pedis (L) GI/Abdominal exam: Present: soft. Absent: tenderness Extremities exam: Present: tenderness (Right anterior lower knee with mild swelling and tenderness. Distally extremity neurovascular intact. Left second through fourth toes with ecchymosis and tenderness.) Neurological exam: Present: alert. Absent: motor sensory deficit Psychiatric exam: Present: normal affect, normal mood Skin exam: Present: normal color Course Vital Signs 12/12/20 11:14 Temperature 98.9 F Pulse Rate 64 Respiratory 16 Rate Blood Pressure 104/55 O2 Sat by Pulse 99 Oximetry - Reevaluation(s) Reevaluation #1: 12/12/20 11:38 Patient requests Dilaudid. Medical Decision Making - Medical Decision Making Patient reevaluated and updated - Radiology Data Radiology results: image reviewed (X-ray left foot does show proximal third phalanx fracture. X-ray right knee shows no fracture. Degenerative changes and joint effusion.) Disposition Clinical Impression: Fracture of left toe, Knee sprain Disposition: HOME SELF-CARE Condition: Stable Instructions (If sedation given, give patient instructions): Knee Sprain (ED), Toe Fracture (ED) Additional Instructions: Use Stevan wrap and postoperative shoe. You may also henok tape toes together, middle one and one next to it. Ice to affected area. Please follow-up with orthopedics, number provided. Return for increased pain, swelling, worsening or changing symptoms or other concerns. Is patient prescribed a controlled substance at d/c from ED?: No Referrals: Julito Pina MD [Primary Care Provider] - 1-2 days Time of Disposition: 13:33
--- NOTE | 2020-12-12 12:38 | XR ---
EXAMINATION TYPE: XR knee complete RT DATE OF EXAM: 12/12/2020 COMPARISON: 11/21/2018 HISTORY: Trauma, fall TECHNIQUE: 3 view right knee FINDINGS: Some calcifications within the menisci. Correlate for calcium pyrophosphate deposition dise ase Medial lateral tibial plateau spurring is present. Lateral femoral condylar spurring is noted. No acu te fracture or dislocation is evident. Moderate joint effusion is present. Follow up exams can be performed 7-10 days from acute trauma for continued pain. IMPRESSION: 1. Moderate joint effusion. 2. Mild degenerative joint changes.
--- NOTE | 2020-12-12 12:45 | XR ---
EXAMINATION TYPE: XR foot complete LT DATE OF EXAM: 12/12/2020 COMPARISON: None HISTORY: Trauma, pain TECHNIQUE: 3 view left foot FINDINGS: There is an old fracture of the distal fifth metatarsal. Some varus deformity of the distal fourth digit is present. There is an intra-articular extension of the base of the proximal phalanx third digit. No additional areas suspicious for fracture is evident. Follow up exams can be performed 7-10 days wo uld acute trauma for continued pain. IMPRESSION: 1. Metaphyseal fracture proximal phalanx third digit left foot may have an intra-articular extension .
[2020-12-12 14:20] VITALS: BP 110/71; PULSE 81; RESP 18; TEMP 98.2
== END 2020-12-12 14:20 | disposition home or self-care (01) ==
LOC: EC 11:12
DX: S92.512A Displaced fracture of proximal phalanx of left lesser toe(s), initial encounter for closed fracture (principal); S83.91XA Sprain of unspecified site of right knee, initial encounter; I10 Essential (primary) hypertension; J44.9 Chronic obstructive pulmonary disease, unspecified; K21.9 Gastro-esophageal reflux disease without esophagitis; F32.9 Major depressive disorder, single episode, unspecified; F41.9 Anxiety disorder, unspecified; Z79.82 Long term (current) use of aspirin; Z79.51 Long term (current) use of inhaled steroids; Z79.890 Hormone replacement therapy; Z79.899 Other long term (current) drug therapy; Z88.1 Allergy status to other antibiotic agents; Z88.5 Allergy status to narcotic agent; Z88.6 Allergy status to analgesic agent; Z88.8 Allergy status to other drugs, medicaments and biological substances; Z85.820 Personal history of malignant melanoma of skin; Z90.49 Acquired absence of other specified parts of digestive tract; W19.XXXA Unspecified fall, initial encounter
CPT/HCPCS: 73562; 73630; 96372; 99284; J1170

== ENCOUNTER 2021-01-20 08:20 | Emergency (ER) | payer MEDICARE, OTHER ==
[2021-01-20 08:31] VITALS: RESP 18; TEMP 98.3
[2021-01-20] MEDS ORDERED: HYDROmorphone 1 MG/ML 1 ML SYRINGE IM STA (08:31)
--- NOTE | 2021-01-20 09:08 | ED ---
Lower Extremity Injury HPI - General Chief Complaint: Extremity Injury, Lower Stated Complaint: fall Time Seen by Provider: 01/20/21 08:25 Source: patient, EMS Mode of arrival: EMS Limitations: no limitations - History of Present Illness Initial Comments: 70-year-old female who presents to the emergency room with reported right knee pain. Patient states that she fell approximately 3-4 weeks ago. She was seen on December 12 and x-rays were normal at that time. She followed up with your orthopedic associates, Dr. Pineda last week. She had an MRI performed which demonstrated a tibial plateau fracture. She was placed in a knee immobilizer. Has a follow-up appointment tomorrow in their office. This morning the patient slipped on one of her dogs pee pads and she slid across the floor. Denies falling but states that she jolted her knee again. She began having worsening pain and therefore called EMS. She did not take anything for pain at home. EMS arrived to the scene and the patient was able to go up and down stairs into her apartment several times getting her stuff together. She denies falling and hitting her head. No numbness, tingling or weakness into her toes. Patient currently not wearing her knee immobilizer at this time. No other injuries. No other alleviating, precipitating modifying factors - Related Data Home Medications Medication Instructions Recorded Confirmed Aspirin EC [Ecotrin Low Dose] 81 mg PO DAILY 04/09/16 12/12/20 Pantoprazole Sodium [Protonix] 40 mg PO BID 04/09/16 12/12/20 EPINEPHrine [Epipen 2-River] 0.3 mg IM ONCE PRN 11/16/16 12/12/20 Nitroglycerin Sl Tabs [Nitrostat] 0.4 mg SUBLINGUAL Q5M PRN 11/16/16 12/12/20 Sucralfate [Carafate] 1 gm PO ACHS 12/13/16 12/12/20 Losartan Potassium 50 mg PO DAILY 09/16/17 12/12/20 diazePAM [Valium] 5 mg PO DAILY PRN 09/16/17 12/12/20 DULoxetine HCL [Cymbalta] 120 mg PO DAILY 04/24/18 12/12/20 Levothyroxine Sodium [Synthroid] 88 mcg PO DAILY 04/24/18 12/12/20 Olopatadine HCl [Pataday] 1 drop BOTH EYES DAILY PRN 08/11/18 12/12/20 buPROPion HCL [Wellbutrin SR] 200 mg PO BID 08/11/18 12/12/20 Hydrochlorothiazide 12.5 mg PO DAILY 09/12/18 12/12/20 [hydroCHLOROthiazide] Ergocalciferol [Vitamin D2] 50,000 unit PO FR 01/14/19 12/12/20 HYDROcodone/APAP 10-325MG [[place] 1 tab PO TID PRN 01/14/19 12/12/20 10-325] Lidocaine 5% Oint [Xylocaine 5% 1 applic TOPICAL BID PRN 01/14/19 12/12/20 Oint] Albuterol Sulfate [Proair Hfa] 1 - 2 puff INHALATION RT-Q4H PRN 03/21/19 12/12/20 Fluticasone Nasal [place] [Flonase 1 spray EA NOSTRIL BID 03/21/19 12/12/20 Nasal [place]] diphenhydrAMINE [Benadryl] 50 mg PO HS 03/21/19 12/12/20 Metoprolol Succinate (ER) [Toprol 50 mg PO DAILY 11/08/19 12/12/20 Xl] Ondansetron [Zofran] 4 mg PO Q8H PRN 11/08/19 12/12/20 Topiramate [Topamax] 100 mg PO BID-W/MEALS 11/08/19 12/12/20 Albuterol Nebulized [Ventolin 2.5 mg INHALATION RT-Q4H PRN 12/12/20 12/12/20 Nebulized] Ascorbic Acid [Vitamin C] 500 mg PO DAILY 12/12/20 12/12/20 Biotin Gummie 1 tab PO DAILY 12/12/20 12/12/20 Fexofenadine HCl [[place] Allergy] 180 mg PO DAILY 12/12/20 12/12/20 Hydrocortisone Oint 1 applic TOPICAL BID 12/12/20 12/12/20 [Hydrocortisone 2.5% Oint] Multivit/Folic Acid/Vit K1 1 tab PO DAILY 12/12/20 12/12/20 [One-A-Day Women's 50 Plus Tab] Vitamin E [Vitamin E (1000 Iu = 1,000 unit PO DAILY 12/12/20 12/12/20 450 MG)] valACYclovir HCL [Valtrex] 1,000 mg PO BID 12/12/20 12/12/20 Allergies Allergy/AdvReac Type Severity Reaction Status Date / Time buprenorphine [From Butrans] Allergy pain Verified 01/30/21 22:29 carisoprodol [From Soma] Allergy Unknown Verified 01/30/21 22:29 chlorpromazine Allergy Unknown Verified 01/30/21 22:29 [From Thorazine] ciprofloxacin [From Cipro] Allergy Unknown Verified 01/30/21 22:29 clonazepam [From Klonopin] Allergy Unknown Verified 01/30/21 22:29 cyclobenzaprine Allergy Unknown Verified 01/30/21 22:29 [From Flexeril] metoclopramide [From Reglan] Allergy Anaphylaxis Verified 01/30/21 22:29 metronidazole [From Flagyl] Allergy Anaphylaxis Verified 01/30/21 22:29 morphine Allergy Rash/Hives Verified 01/30/21 22:29 naproxen Allergy Unknown Verified 01/30/21 22:29 papaya Allergy Rash/Hives Verified 01/30/21 22:29 prednisone Allergy Anaphylaxis Verified 01/30/21 22:29 prochlorperazine Allergy Anaphylaxis Verified 01/30/21 22:29 [From Compazine] red dye Allergy Rash/Hives Verified 01/30/21 22:29 venom-honey bee Allergy Anaphylaxis Verified 01/30/21 22:29 [bee venom (honey bee)] ketorolac [From Toradol] AdvReac Severe Abdominal Verified 01/30/21 22:29 Pain baclofen AdvReac Twitching Verified 01/30/21 22:29 buspirone [From BuSpar] AdvReac Confusion Verified 01/30/21 22:29 ibuprofen [From Motrin] AdvReac Abdominal Verified 01/30/21 22:29 Pain meperidine [From Demerol] AdvReac Rapid Verified 01/30/21 22:29 Heart Rate Phenothiazines AdvReac Altered Verified 01/30/21 22:29 Mental Status Review of Systems ROS Statement: Those systems with pertinent positive or pertinent negative responses have been documented in the HPI. ROS Other: All systems not noted in ROS Statement are negative. Past Medical History Past Medical History: Asthma, Cancer, COPD, GERD/Reflux, Hypertension, Pneumonia, Thyroid Disorder Additional Past Medical History / Comment(s): shingles, RT BREAST LUMPECTOMY/CANCER, THYROID REMOVE, CATARACTS, BRONCHITIS, MONO TEENAGER, LITE CASE OF POLIO AGE 8, MELANOMA SKIN CANCER REMOVED, r shoulder rotator tear History of Any Multi-Drug Resistant Organisms: MRSA Date of last positivie culture/infection: 2009 MDRO Source:: LEFT ULNAR BONE, kidneys Past Surgical History: Appendectomy, Back Surgery, Cholecystectomy, Orthopedic Surgery Additional Past Surgical History / Comment(s): EYE SX FOR LAZY EYE, SX ON TEAR DUCTS, BACK SURGERY MICRO DISC, LT WRIST BROKEN 7 [place] HAD 13 Surgeries TO CORRECT, left shoulder and humorous shattered from a fall with 2 surgeries to correct, LAPROSCOPIES- BENIGN TUNOR SIZE OF GRAPFRUIT REMOVED AGE 11 OR 1, RT BREAST BX/LUMPECTOMY,LT PINK FINGER SX TO STRAIGHTEN.MELANOMA SKIN CANCER REMOVED. Past Anesthesia/Blood Transfusion Reactions: No Reported Reaction Additional Past Anesthesia/Blood Transfusion Reaction / Comment(s): CLAUSTERPHOBIA Past Psychological History: Anxiety, Depression, PTSD Smoking Status: Never smoker Past Alcohol Use History: Occasional Past Drug Use History: None Reported - Past Family History Mother Family Medical History: Asthma Additional Family Medical History / Comment(s): ETOH/SMOKER Father Family Medical History: Cancer, Liver Disease Additional Family Medical History / Comment(s): ESOPHOGEAL CANCER, ETOH General Exam Limitations: no limitations General appearance: alert, in no apparent distress Head exam: Present: atraumatic, normocephalic, normal inspection Eye exam: Present: normal appearance, PERRL, EOMI. Absent: scleral icterus, conjunctival injection, periorbital swelling ENT exam: Present: normal exam, mucous membranes moist Neck exam: Present: normal inspection. Absent: tenderness, meningismus, lymphadenopathy Respiratory exam: Present: normal lung sounds bilaterally. Absent: respiratory distress, wheezes, rales, rhonchi, stridor Cardiovascular Exam: Present: regular rate, normal rhythm, normal heart sounds. Absent: systolic murmur, diastolic murmur, rubs, gallop, clicks GI/Abdominal exam: Present: soft, normal bowel sounds. Absent: distended, tenderness, guarding, rebound, rigid Extremities exam: Present: full ROM, tenderness (right knee. No abrasions. No ecchymosis. Full ROM. 2+ DP and PT pulses. ), normal capillary refill. Absent: pedal edema, joint swelling, calf tenderness Back exam: Present: normal inspection Neurological exam: Present: alert, oriented X3, CN II-XII intact Psychiatric exam: Present: normal affect, normal mood Skin exam: Present: warm, dry, intact, normal color. Absent: rash Course Vital Signs 01/20/21 01/20/21 08:23 10:19 Temperature 98.3 F 98.3 F Pulse Rate 67 66 Respiratory 18 18 Rate Blood Pressure 125/77 135/75 O2 Sat by Pulse 97 100 Oximetry Medical Decision Making - Medical Decision Making Upon arrival patient was placed into room 13. A thorough history and physical exam was performed. Patient states that only Dilaudid works for her pain therefore she is given 1 mg IM. She is sent over for x-ray of her right knee which demonstrates slightly extruded appearance of the body of the medial meniscus with underlying medial meniscus not included. Meniscal chondrocalcinosis. Small joint effusion. Results are discussed the patient. Recommended that she wear her knee immobilizer when getting around. Rest, ice and elevate the extremity. She has [place] at home for pain control. She has appointment tomorrow with the orthopedic associates. She is instructed to keep this appointment. She is given a prescription for crutches. Instructed to not weight bear on the right leg. Return to the emergency room for new or worsening symptoms. Patient was discharged in stable condition Disposition Clinical Impression: Right knee pain Disposition: HOME SELF-CARE Condition: Stable Instructions (If sedation given, give patient instructions): Knee Sprain (ED) Additional Instructions: Follow up with Dr. Perla tomorrow at your scheduled appointment. Take your pain medications as directed. Return to the ED for any new or worsening symptoms. Is patient prescribed a controlled substance at d/c from ED?: No Referrals: Julito Pina MD [Primary Care Provider] - 1-2 days Zhao Pineda MD [STAFF PHYSICIAN] - 1-2 days Time of Disposition: 09:44
--- NOTE | 2021-01-20 09:27 | XR ---
EXAMINATION TYPE: XR knee complete RT DATE OF EXAM: 01/20/2021 COMPARISON: 12/12/2020 HISTORY: 70-year-old female new injury, known tibial fracture TECHNIQUE: 3 views FINDINGS: Tricompartmental degenerative spurring. Meniscal chondrocalcinosis is noted. Possible slightly extrud ed body of the medial meniscus on the AP view. Small knee joint effusion. Extensor mechanism is intac t. No acute fracture, subluxation, or dislocation seen. IMPRESSION: 1. Slightly extruded appearance to the body of the medial meniscus on the AP view. Underlying menisca l tear not excluded. 2. Meniscal chondrocalcinosis may be idiopathic or can be seen with CPPD. Additional tricompartmental degenerative spurring. 3. Small knee joint effusion.
[2021-01-20] MEDS ORDERED: HYDROmorphone 0.5 MG/0.5 ML SYRINGE IM STA (09:44)
[2021-01-20] MEDS ORDERED: ONDANSETRON ODT 4 MG TAB PO STA (09:47)
[2021-01-20 10:28] VITALS: BP 135/75; PULSE 66
== END 2021-01-20 10:28 | disposition home or self-care (01) ==
LOC: EC 08:20
DX: M25.561 Pain in right knee (principal); J44.9 Chronic obstructive pulmonary disease, unspecified; I10 Essential (primary) hypertension; K21.9 Gastro-esophageal reflux disease without esophagitis; E07.9 Disorder of thyroid, unspecified; Z79.82 Long term (current) use of aspirin; Z79.890 Hormone replacement therapy; Z79.899 Other long term (current) drug therapy; Z79.51 Long term (current) use of inhaled steroids; Z88.5 Allergy status to narcotic agent; Z88.6 Allergy status to analgesic agent; Z91.018 Allergy to other foods; Z88.8 Allergy status to other drugs, medicaments and biological substances; Z88.1 Allergy status to other antibiotic agents; W01.0XXA Fall on same level from slipping, tripping and stumbling without subsequent striking against object, initial encounter; Y92.009 Unspecified place in unspecified non-institutional (private) residence as the place of occurrence of the external cause
CPT/HCPCS: 99284; 96372; 73562; J1170 ×2

== ENCOUNTER 2021-01-30 21:51 | Emergency (ER) | payer MEDICARE, OTHER ==
[2021-01-31] MEDS ORDERED: HYDROmorphone 1 MG/ML 1 ML SYRINGE IM STA (01:05)
[2021-01-31 01:48] VITALS: RESP 18
--- NOTE | 2021-01-31 02:24 | XR ---
EXAMINATION TYPE: XR tibia fibula RT DATE OF EXAM: 01/31/2021 COMPARISON: NONE HISTORY: Pain TECHNIQUE: 4 views FINDINGS: The tibia and fibula appear intact. I see no fracture nor dislocation. There is calcificati on in the medial and lateral menisci of the knee. Ankle mortise is anatomic. IMPRESSION: There is chondrocalcinosis at the knee. No fracture seen.
--- NOTE | 2021-01-31 02:26 | XR ---
EXAMINATION TYPE: XR ankle complete RT DATE OF EXAM: 01/31/2021 COMPARISON: NONE HISTORY: Ankle pain TECHNIQUE: 3 views FINDINGS: Ankle mortise is anatomic. I see no fracture nor dislocation. Joint spaces are fairly fela l. IMPRESSION: Negative right ankle exam.
--- NOTE | 2021-01-31 02:27 | XR ---
EXAMINATION TYPE: XR knee complete RT DATE OF EXAM: 01/31/2021 COMPARISON: NONE HISTORY: Pain TECHNIQUE: 3 views FINDINGS: There is calcification of the medial and lateral menisci. Knee joint spaces are fairly norm al. There is mild spurring of the medial femoral and tibial condyles. There is mild spurring on the p atella. I see no definite fracture. IMPRESSION: There is some osteoarthritis and chondrocalcinosis. No fracture seen.
--- NOTE | 2021-01-31 02:39 | ED ---
Lower Extremity Injury HPI - General Chief Complaint: Extremity Injury, Lower Stated Complaint: R knee pain Time Seen by Provider: 01/31/21 00:39 Source: patient Mode of arrival: ambulatory Limitations: no limitations - History of Present Illness Initial Comments: 70-year-old female presents to emergency Department with a chief complaint of right knee pain. Patient reports she injured her right knee about one month ago and was diagnosed with a meniscal tear and a stress fracture of the tibia according to the customer resource specialist. Patient reports she is currently undergoing treatment with them. Patient arrived with a knee immobilizer in place. States last night she suffered a trip and fall and fell directly on her right knee. Patient reports no pain in the left patellar region with limited range of motion with flexion. However, she is able to fully extend the knee. She denies any weakness or paresthesias. Patient takes narcotic for pain as she is under a pain management contract. Denies any head injuries. - Related Data Home Medications Medication Instructions Recorded Confirmed Aspirin EC [Ecotrin Low Dose] 81 mg PO DAILY 04/09/16 12/12/20 Pantoprazole Sodium [Protonix] 40 mg PO BID 04/09/16 12/12/20 EPINEPHrine [Epipen 2-River] 0.3 mg IM ONCE PRN 11/16/16 12/12/20 Nitroglycerin Sl Tabs [Nitrostat] 0.4 mg SUBLINGUAL Q5M PRN 11/16/16 12/12/20 Sucralfate [Carafate] 1 gm PO ACHS 12/13/16 12/12/20 Losartan Potassium 50 mg PO DAILY 09/16/17 12/12/20 diazePAM [Valium] 5 mg PO DAILY PRN 09/16/17 12/12/20 DULoxetine HCL [Cymbalta] 120 mg PO DAILY 04/24/18 12/12/20 Levothyroxine Sodium [Synthroid] 88 mcg PO DAILY 04/24/18 12/12/20 Olopatadine HCl [Pataday] 1 drop BOTH EYES DAILY PRN 08/11/18 12/12/20 buPROPion HCL [Wellbutrin SR] 200 mg PO BID 08/11/18 12/12/20 Hydrochlorothiazide 12.5 mg PO DAILY 09/12/18 12/12/20 [hydroCHLOROthiazide] Ergocalciferol [Vitamin D2] 50,000 unit PO FR 01/14/19 12/12/20 HYDROcodone/APAP 10-325MG [[place] 1 tab PO TID PRN 01/14/19 12/12/20 10-325] Lidocaine 5% Oint [Xylocaine 5% 1 applic TOPICAL BID PRN 01/14/19 12/12/20 Oint] Albuterol Sulfate [Proair Hfa] 1 - 2 puff INHALATION RT-Q4H PRN 03/21/19 12/12/20 Fluticasone Nasal [place] [Flonase 1 spray EA NOSTRIL BID 03/21/19 12/12/20 Nasal [place]] diphenhydrAMINE [Benadryl] 50 mg PO HS 03/21/19 12/12/20 Metoprolol Succinate (ER) [Toprol 50 mg PO DAILY 11/08/19 12/12/20 Xl] Ondansetron [Zofran] 4 mg PO Q8H PRN 11/08/19 12/12/20 Topiramate [Topamax] 100 mg PO BID-W/MEALS 11/08/19 12/12/20 Albuterol Nebulized [Ventolin 2.5 mg INHALATION RT-Q4H PRN 12/12/20 12/12/20 Nebulized] Ascorbic Acid [Vitamin C] 500 mg PO DAILY 12/12/20 12/12/20 Biotin Gummie 1 tab PO DAILY 12/12/20 12/12/20 Fexofenadine HCl [[place] Allergy] 180 mg PO DAILY 12/12/20 12/12/20 Hydrocortisone Oint 1 applic TOPICAL BID 12/12/20 12/12/20 [Hydrocortisone 2.5% Oint] Multivit/Folic Acid/Vit K1 1 tab PO DAILY 12/12/20 12/12/20 [One-A-Day Women's 50 Plus Tab] Vitamin E [Vitamin E (1000 Iu = 1,000 unit PO DAILY 12/12/20 12/12/20 450 MG)] valACYclovir HCL [Valtrex] 1,000 mg PO BID 12/12/20 12/12/20 Allergies Allergy/AdvReac Type Severity Reaction Status Date / Time buprenorphine [From Butrans] Allergy pain Verified 01/30/21 22:29 carisoprodol [From Soma] Allergy Unknown Verified 01/30/21 22:29 chlorpromazine Allergy Unknown Verified 01/30/21 22:29 [From Thorazine] ciprofloxacin [From Cipro] Allergy Unknown Verified 01/30/21 22:29 clonazepam [From Klonopin] Allergy Unknown Verified 01/30/21 22:29 cyclobenzaprine Allergy Unknown Verified 01/30/21 22:29 [From Flexeril] metoclopramide [From Reglan] Allergy Anaphylaxis Verified 01/30/21 22:29 metronidazole [From Flagyl] Allergy Anaphylaxis Verified 01/30/21 22:29 morphine Allergy Rash/Hives Verified 01/30/21 22:29 naproxen Allergy Unknown Verified 01/30/21 22:29 papaya Allergy Rash/Hives Verified 01/30/21 22:29 prednisone Allergy Anaphylaxis Verified 01/30/21 22:29 prochlorperazine Allergy Anaphylaxis Verified 01/30/21 22:29 [From Compazine] red dye Allergy Rash/Hives Verified 01/30/21 22:29 venom-honey bee Allergy Anaphylaxis Verified 01/30/21 22:29 [bee venom (honey bee)] ketorolac [From Toradol] AdvReac Severe Abdominal Verified 01/30/21 22:29 Pain baclofen AdvReac Twitching Verified 01/30/21 22:29 buspirone [From BuSpar] AdvReac Confusion Verified 01/30/21 22:29 ibuprofen [From Motrin] AdvReac Abdominal Verified 01/30/21 22:29 Pain meperidine [From Demerol] AdvReac Rapid Verified 01/30/21 22:29 Heart Rate Phenothiazines AdvReac Altered Verified 01/30/21 22:29 Mental Status Review of Systems ROS Statement: Those systems with pertinent positive or pertinent negative responses have been documented in the HPI. ROS Other: All systems not noted in ROS Statement are negative. Past Medical History Past Medical History: Asthma, Cancer, COPD, GERD/Reflux, Hypertension, Pneumonia, Thyroid Disorder Additional Past Medical History / Comment(s): shingles, RT BREAST LUMPECTOMY/CANCER, THYROID REMOVE, CATARACTS, BRONCHITIS, MONO TEENAGER, LITE CASE OF POLIO AGE 8, MELANOMA SKIN CANCER REMOVED, r shoulder rotator tear History of Any Multi-Drug Resistant Organisms: MRSA Date of last positivie culture/infection: 2009 MDRO Source:: LEFT ULNAR BONE, kidneys Past Surgical History: Appendectomy, Back Surgery, Cholecystectomy, Orthopedic Surgery Additional Past Surgical History / Comment(s): EYE SX FOR LAZY EYE, SX ON TEAR DUCTS, BACK SURGERY MICRO DISC, LT WRIST BROKEN 7 GALLO HAD 13 Surgeries TO CORRECT, left shoulder and humorous shattered from a fall with 2 surgeries to correct, LAPROSCOPIES- BENIGN TUNOR SIZE OF GRAPFRUIT REMOVED AGE 11 OR 1, RT BREAST BX/LUMPECTOMY,LT PINK FINGER SX TO STRAIGHTEN.MELANOMA SKIN CANCER REMOVED. Past Anesthesia/Blood Transfusion Reactions: No Reported Reaction Additional Past Anesthesia/Blood Transfusion Reaction / Comment(s): CLAUSTERPHOBIA Past Psychological History: Anxiety, Depression, PTSD Smoking Status: Never smoker Past Alcohol Use History: Occasional Past Drug Use History: None Reported - Past Family History Mother Family Medical History: Asthma Additional Family Medical History / Comment(s): ETOH/SMOKER Father Family Medical History: Cancer, Liver Disease Additional Family Medical History / Comment(s): ESOPHOGEAL CANCER, ETOH General Exam Limitations: no limitations General appearance: alert, in no apparent distress Head exam: Present: atraumatic, normocephalic, normal inspection Eye exam: Present: normal appearance, PERRL, EOMI Pupils: Present: normal accommodation ENT exam: Present: normal exam, normal oropharynx, mucous membranes moist Neck exam: Present: normal inspection, full ROM. Absent: lymphadenopathy Respiratory exam: Present: normal lung sounds bilaterally. Absent: respiratory distress Cardiovascular Exam: Present: regular rate, normal rhythm, normal heart sounds. Absent: systolic murmur Extremities exam: Present: normal inspection, tenderness (Tenderness in the upper patellar region and distally to the mid tibial region. Also mild tenderness along the lateral malleolus), normal capillary refill, other (Palpable DP and PT bilaterally. Sensation intact in the right leg). Absent: full ROM (Limited range of motion of the right knee with flexion), pedal edema, joint swelling, calf tenderness Back exam: Present: normal inspection, full ROM Neurological exam: Present: alert, oriented X3 Psychiatric exam: Present: normal affect, normal mood Skin exam: Present: warm, dry, intact, normal color Course Vital Signs 01/30/21 01/31/21 01/31/21 22:24 01:35 02:54 Temperature 98.0 F Pulse Rate 64 70 72 Respiratory 20 18 18 Rate Blood Pressure 123/72 121/75 138/77 O2 Sat by Pulse 100 97 99 Oximetry 01/31/21 03:12 Temperature 98.3 F Pulse Rate 68 Respiratory 18 Rate Blood Pressure 126/79 O2 Sat by Pulse 100 Oximetry Medical Decision Making - Medical Decision Making 70-year-old female presenting to the emergency department with a chief complaint of right knee pain. Physical examination, she is neurovascularly intact. Tenderness in the infrapatellar region. Patient is on chronic pain management. Patient was given analgesics in the emergency department. X-rays of the right knee, tib-fib and ankle are unremarkable. The knee immobilizer was applied back again that she originally presented with. Advised to follow back with the customer resource specialist. Return parameters were discussed with patient was an ascending and agreeable. Disposition Clinical Impression: Right knee injury Disposition: HOME SELF-CARE Condition: Stable Instructions (If sedation given, give patient instructions): Knee Pain (ED), Arthralgia (ED) Additional Instructions: Follow-up with the customer resource specialist. Return to emergency department if symptoms worsen. Is patient prescribed a controlled substance at d/c from ED?: No Referrals: Julito Pina MD [Primary Care Provider] - 1-2 days Aden Dillard MD [Medical Doctor] - 1-2 days Time of Disposition: 02:39
[2021-01-31] MEDS ORDERED: HYDROmorphone 0.5 MG/0.5 ML SYRINGE IM STA (03:01)
[2021-01-31 03:14] VITALS: BP 126/79; PULSE 68; TEMP 98.3
== END 2021-01-31 03:14 | disposition home or self-care (01) ==
LOC: EC 21:51
DX: S89.91XA Unspecified injury of right lower leg, initial encounter (principal); I10 Essential (primary) hypertension; J44.9 Chronic obstructive pulmonary disease, unspecified; E07.9 Disorder of thyroid, unspecified; K21.9 Gastro-esophageal reflux disease without esophagitis; Z88.8 Allergy status to other drugs, medicaments and biological substances; Z88.1 Allergy status to other antibiotic agents; Z88.5 Allergy status to narcotic agent; Z88.6 Allergy status to analgesic agent; Z91.018 Allergy to other foods; Z91.02 Food additives allergy status; Z91.030 Bee allergy status; Z79.899 Other long term (current) drug therapy; Z79.890 Hormone replacement therapy; Z79.51 Long term (current) use of inhaled steroids; W01.0XXA Fall on same level from slipping, tripping and stumbling without subsequent striking against object, initial encounter
CPT/HCPCS: 73590; 73562; 73610; 99283; 96372; J1170 ×2

== ENCOUNTER 2021-04-03 04:19 | Emergency (ER) | payer MEDICARE, OTHER ==
[2021-04-03 04:26] VITALS: RESP 18
[2021-04-03] MEDS ORDERED: HYDROmorphone 1 MG/ML 1 ML SYRINGE IM STA (04:42)
[2021-04-03] MEDS ORDERED: diphenhydrAMINE 50 MG CAP PO STA (04:42)
[2021-04-03] MEDS ORDERED: ONDANSETRON ODT 4 MG TAB PO STA (05:11)
--- NOTE | 2021-04-03 05:12 | ED ---
Neck Injury/Pain HPI - General Chief Complaint: Neck Pain/Injury Stated Complaint: neck pain Time Seen by Provider: 04/03/21 04:22 Source: RN notes reviewed, old records reviewed Mode of arrival: EMS Limitations: physical limitation - History of Present Illness Initial Comments: This is a 70-year-old female DF for evaluation patient presents today for e valuation regards to neck pain severe neck pain acute on chronic neck pain. Patient did take medication at home for chronic back pain but does not help. Patient also states she's been out of the cuticle medications lately secondary to neighbors today and pain meds. No recent trauma no fevers no other complaints MD Complaint: neck pain -: days(s) (3) Place: home Radiation: left lateral Severity: severe Severity scale (1-10): 7 Quality: stabbing, crushing, aching Consistency: constant Improves With: none Worsens With: none Context: turning/bending Associated Symptoms: none Treatments Prior to Arrival: none - Related Data Home Medications Medication Instructions Recorded Confirmed Aspirin EC [Ecotrin Low Dose] 81 mg PO DAILY 04/09/16 12/12/20 Pantoprazole Sodium [Protonix] 40 mg PO BID 04/09/16 12/12/20 EPINEPHrine [Epipen 2-River] 0.3 mg IM ONCE PRN 11/16/16 12/12/20 Nitroglycerin Sl Tabs [Nitrostat] 0.4 mg SUBLINGUAL Q5M PRN 11/16/16 12/12/20 Sucralfate [Carafate] 1 gm PO ACHS 12/13/16 12/12/20 Losartan Potassium 50 mg PO DAILY 09/16/17 12/12/20 diazePAM [Valium] 5 mg PO DAILY PRN 09/16/17 12/12/20 DULoxetine HCL [Cymbalta] 120 mg PO DAILY 04/24/18 12/12/20 Levothyroxine Sodium [Synthroid] 88 mcg PO DAILY 04/24/18 12/12/20 Olopatadine HCl [Pataday] 1 drop BOTH EYES DAILY PRN 08/11/18 12/12/20 buPROPion HCL [Wellbutrin SR] 200 mg PO BID 08/11/18 12/12/20 Hydrochlorothiazide 12.5 mg PO DAILY 09/12/18 12/12/20 [hydroCHLOROthiazide] Ergocalciferol [Vitamin D2] 50,000 unit PO FR 01/14/19 12/12/20 HYDROcodone/APAP 10-325MG [[place] 1 tab PO TID PRN 01/14/19 12/12/20 10-325] Lidocaine 5% Oint [Xylocaine 5% 1 applic TOPICAL BID PRN 01/14/19 12/12/20 Oint] Albuterol Sulfate [Proair Hfa] 1 - 2 puff INHALATION RT-Q4H PRN 03/21/19 12/12/20 Fluticasone Nasal [place] [Flonase 1 spray EA NOSTRIL BID 03/21/19 12/12/20 Nasal [place]] diphenhydrAMINE [Benadryl] 50 mg PO HS 03/21/19 12/12/20 Metoprolol Succinate (ER) [Toprol 50 mg PO DAILY 11/08/19 12/12/20 Xl] Ondansetron [Zofran] 4 mg PO Q8H PRN 11/08/19 12/12/20 Topiramate [Topamax] 100 mg PO BID-W/MEALS 11/08/19 12/12/20 Albuterol Nebulized [Ventolin 2.5 mg INHALATION RT-Q4H PRN 12/12/20 12/12/20 Nebulized] Ascorbic Acid [Vitamin C] 500 mg PO DAILY 12/12/20 12/12/20 Biotin Gummie 1 tab PO DAILY 12/12/20 12/12/20 Fexofenadine HCl [[place]ton Allergy] 180 mg PO DAILY 12/12/20 12/12/20 Hydrocortisone Oint 1 applic TOPICAL BID 12/12/20 12/12/20 [Hydrocortisone 2.5% Oint] Multivit/Folic Acid/Vit K1 1 tab PO DAILY 12/12/20 12/12/20 [One-A-Day Women's 50 Plus Tab] Vitamin E [Vitamin E (1000 Iu = 1,000 unit PO DAILY 12/12/20 12/12/20 450 MG)] valACYclovir HCL [Valtrex] 1,000 mg PO BID 12/12/20 12/12/20 Allergies Allergy/AdvReac Type Severity Reaction Status Date / Time buprenorphine [From Butrans] Allergy pain Verified 04/03/21 04:28 carisoprodol [From Soma] Allergy Unknown Verified 04/03/21 04:28 chlorpromazine Allergy Unknown Verified 04/03/21 04:28 [From Thorazine] ciprofloxacin [From Cipro] Allergy Unknown Verified 04/03/21 04:28 clonazepam [From Klonopin] Allergy Unknown Verified 04/03/21 04:28 cyclobenzaprine Allergy Unknown Verified 04/03/21 04:28 [From Flexeril] metoclopramide [From Reglan] Allergy Anaphylaxis Verified 04/03/21 04:28 metronidazole [From Flagyl] Allergy Anaphylaxis Verified 04/03/21 04:28 morphine Allergy Rash/Hives Verified 04/03/21 04:28 naproxen Allergy Unknown Verified 04/03/21 04:28 papaya Allergy Rash/Hives Verified 01/30/21 22:29 prednisone Allergy Anaphylaxis Verified 04/03/21 04:28 prochlorperazine Allergy Anaphylaxis Verified 04/03/21 04:28 [From Compazine] red dye Allergy Rash/Hives Verified 04/03/21 04:28 venom-honey bee Allergy Anaphylaxis Verified 04/03/21 04:28 [bee venom (honey bee)] ketorolac [From Toradol] AdvReac Severe Abdominal Verified 04/03/21 04:28 Pain baclofen AdvReac Twitching Verified 04/03/21 04:28 buspirone [From BuSpar] AdvReac Confusion Verified 04/03/21 04:28 ibuprofen [From Motrin] AdvReac Abdominal Verified 04/03/21 04:28 Pain meperidine [From Demerol] AdvReac Rapid Verified 04/03/21 04:28 Heart Rate Phenothiazines AdvReac Altered Verified 04/03/21 04:28 Mental Status Review of Systems ROS Statement: Those systems with pertinent positive or pertinent negative responses have been documented in the HPI. ROS Other: All systems not noted in ROS Statement are negative. Past Medical History Past Medical History: Asthma, Cancer, COPD, GERD/Reflux, Hypertension, Pneumonia, Thyroid Disorder Additional Past Medical History / Comment(s): shingles, RT BREAST LUMPECTOMY/CANCER, THYROID REMOVE, CATARACTS, BRONCHITIS, MONO TEENAGER, LITE CASE OF POLIO AGE 8, MELANOMA SKIN CANCER REMOVED, r shoulder rotator tear History of Any Multi-Drug Resistant Organisms: MRSA Date of last positivie culture/infection: 2010 MDRO Source:: LEFT ULNAR BONE, kidneys Past Surgical History: Appendectomy, Back Surgery, Cholecystectomy, Orthopedic Surgery Additional Past Surgical History / Comment(s): EYE SX FOR LAZY EYE, SX ON TEAR DUCTS, BACK SURGERY MICRO DISC, LT WRIST BROKEN 7 GALLO HAD 13 Surgeries TO CORRECT, left shoulder and humorous shattered from a fall with 2 surgeries to correct, LAPROSCOPIES- BENIGN TUNOR SIZE OF GRAPFRUIT REMOVED AGE 11 OR 1, RT BREAST BX/LUMPECTOMY,LT PINK FINGER SX TO STRAIGHTEN.MELANOMA SKIN CANCER REMOVED. Past Anesthesia/Blood Transfusion Reactions: No Reported Reaction Additional Past Anesthesia/Blood Transfusion Reaction / Comment(s): CLAUSTERPHOBIA Past Psychological History: Anxiety, Depression, PTSD Smoking Status: Never smoker Past Alcohol Use History: Occasional Past Drug Use History: None Reported - Past Family History Mother Family Medical History: Asthma Additional Family Medical History / Comment(s): ETOH/SMOKER Father Family Medical History: Cancer, Liver Disease Additional Family Medical History / Comment(s): ESOPHOGEAL CANCER, ETOH General Exam Limitations: physical limitation General appearance: alert, in no apparent distress Head exam: Present: atraumatic, normocephalic, normal inspection Eye exam: Present: normal appearance, PERRL, EOMI. Absent: scleral icterus, conjunctival injection, periorbital swelling ENT exam: Present: normal exam, mucous membranes moist Neck exam: Present: normal inspection. Absent: tenderness, meningismus, lymphadenopathy Respiratory exam: Present: normal lung sounds bilaterally. Absent: respiratory distress, wheezes, rales, rhonchi, stridor Cardiovascular Exam: Present: regular rate, normal rhythm, normal heart sounds. Absent: systolic murmur, diastolic murmur, rubs, gallop, clicks GI/Abdominal exam: Present: soft, normal bowel sounds. Absent: distended, tenderness, guarding, rebound, rigid Extremities exam: Present: normal inspection, full ROM, normal capillary refill. Absent: tenderness, pedal edema, joint swelling, calf tenderness Back exam: Present: normal inspection Neurological exam: Present: alert, oriented X3, CN II-XII intact Psychiatric exam: Present: normal affect, normal mood Skin exam: Present: warm, dry, intact, normal color. Absent: rash Course Vital Signs 04/03/21 04:21 Temperature 97.8 F Pulse Rate 64 Respiratory 18 Rate Blood Pressure 126/74 O2 Sat by Pulse 100 Oximetry - Reevaluation(s) Reevaluation #1: 04/03/21 05:37 Medical record is reviewed Reevaluation #2: 04/03/21 05:37 Patient's pain is well-controlled Reevaluation #3: 04/03/21 05:37 Patient is informed of results and feels comfortable for discharge Medical Decision Making - Medical Decision Making 70 female to the emergency department for acute on chronic back pain. Patient has adequate pain control currently and can be discharged home Disposition Clinical Impression: Strain of neck muscle Disposition: HOME SELF-CARE Condition: Good Instructions (If sedation given, give patient instructions): Cervical Sprain (ED), Cervical Strain (ED) Is patient prescribed a controlled substance at d/c from ED?: No Referrals: Julito Pian MD [Primary Care Provider] - 1-2 days
[2021-04-03] MEDS ORDERED: ACET/COD 300 MG/30 MG STARTER PACK 6 TAB BTL PO STA (06:21)
[2021-04-03 06:51] VITALS: BP 108/92; PULSE 60; TEMP 97.5
== END 2021-04-03 06:50 | disposition home or self-care (01) ==
LOC: EC 04:19
DX: S16.1XXA Strain of muscle, fascia and tendon at neck level, initial encounter (principal); I10 Essential (primary) hypertension; J44.9 Chronic obstructive pulmonary disease, unspecified; K21.9 Gastro-esophageal reflux disease without esophagitis; F32.A Depression, unspecified; F41.9 Anxiety disorder, unspecified; Z79.51 Long term (current) use of inhaled steroids; Z79.82 Long term (current) use of aspirin; Z79.890 Hormone replacement therapy; Z79.899 Other long term (current) drug therapy; X50.1XXA Overexertion from prolonged static or awkward postures, initial encounter
CPT/HCPCS: 99283; 96372; J1170

== ENCOUNTER 2021-04-29 04:43 | Emergency (ER) | payer MEDICARE, OTHER ==
[2021-04-29] MEDS ORDERED: HYDROcodone/APAP 10-325MG 1 EACH TAB PO ONE (05:07)
--- NOTE | 2021-04-29 06:18 | ED ---
Extremity Problem HPI - General Chief complaint: Extremity Problem,Nontraumatic Stated complaint: leg pain Time Seen by Provider: 04/29/21 04:50 Source: patient, EMS Mode of arrival: EMS Limitations: no limitations - History of Present Illness MD Complaint: extremity pain -: hour(s) Location: left, lower extremity History of Same: No -: Yes myalgia Radiation: none Quality: other (Cramping) Consistency: intermittent, now resolved Improves with: nothing Worsens with: nothing - Related Data Home Medications Medication Instructions Recorded Confirmed Aspirin EC [Ecotrin Low Dose] 81 mg PO DAILY 04/09/16 12/12/20 Pantoprazole Sodium [Protonix] 40 mg PO BID 04/09/16 12/12/20 EPINEPHrine [Epipen 2-River] 0.3 mg IM ONCE PRN 11/16/16 12/12/20 Nitroglycerin Sl Tabs [Nitrostat] 0.4 mg SUBLINGUAL Q5M PRN 11/16/16 12/12/20 Sucralfate [Carafate] 1 gm PO ACHS 12/13/16 12/12/20 Losartan Potassium 50 mg PO DAILY 09/16/17 12/12/20 diazePAM [Valium] 5 mg PO DAILY PRN 09/16/17 12/12/20 DULoxetine HCL [Cymbalta] 120 mg PO DAILY 04/24/18 12/12/20 Levothyroxine Sodium [Synthroid] 88 mcg PO DAILY 04/24/18 12/12/20 Olopatadine HCl [[place]] 1 drop BOTH EYES DAILY PRN 08/11/18 12/12/20 buPROPion HCL [Wellbutrin SR] 200 mg PO BID 08/11/18 12/12/20 Hydrochlorothiazide 12.5 mg PO DAILY 09/12/18 12/12/20 [hydroCHLOROthiazide] Ergocalciferol [Vitamin D2] 50,000 unit PO FR 01/14/19 12/12/20 HYDROcodone/APAP 10-325MG [[place] 1 tab PO TID PRN 01/14/19 12/12/20 10-325] Lidocaine 5% Oint [Xylocaine 5% 1 applic TOPICAL BID PRN 01/14/19 12/12/20 Oint] Albuterol Sulfate [Proair Hfa] 1 - 2 puff INHALATION RT-Q4H PRN 03/21/19 12/12/20 Fluticasone Nasal [place] [Flonase 1 spray EA NOSTRIL BID 03/21/19 12/12/20 Nasal [place]] diphenhydrAMINE [Benadryl] 50 mg PO HS 03/21/19 12/12/20 Metoprolol Succinate (ER) [Toprol 50 mg PO DAILY 11/08/19 12/12/20 Xl] Ondansetron [Zofran] 4 mg PO Q8H PRN 11/08/19 12/12/20 Topiramate [Topamax] 100 mg PO BID-W/MEALS 11/08/19 12/12/20 Albuterol Nebulized [Ventolin 2.5 mg INHALATION RT-Q4H PRN 12/12/20 12/12/20 Nebulized] Ascorbic Acid [Vitamin C] 500 mg PO DAILY 12/12/20 12/12/20 Biotin Gummie 1 tab PO DAILY 12/12/20 12/12/20 Fexofenadine HCl [[place] Allergy] 180 mg PO DAILY 12/12/20 12/12/20 Hydrocortisone Oint 1 applic TOPICAL BID 12/12/20 12/12/20 [Hydrocortisone 2.5% Oint] Multivit/Folic Acid/Vit K1 1 tab PO DAILY 12/12/20 12/12/20 [One-A-Day Women's 50 Plus Tab] Vitamin E [Vitamin E (1000 Iu = 1,000 unit PO DAILY 12/12/20 12/12/20 450 MG)] valACYclovir HCL [Valtrex] 1,000 mg PO BID 12/12/20 12/12/20 Allergies Allergy/AdvReac Type Severity Reaction Status Date / Time buprenorphine [From Butrans] Allergy pain Verified 04/29/21 04:47 carisoprodol [From Soma] Allergy Unknown Verified 04/29/21 04:47 chlorpromazine Allergy Unknown Verified 04/29/21 04:47 [From Thorazine] ciprofloxacin [From Cipro] Allergy Unknown Verified 04/29/21 04:47 clonazepam [From Klonopin] Allergy Unknown Verified 04/29/21 04:47 cyclobenzaprine Allergy Unknown Verified 04/29/21 04:47 [From Flexeril] metoclopramide [From Reglan] Allergy Anaphylaxis Verified 04/29/21 04:47 metronidazole [From Flagyl] Allergy Anaphylaxis Verified 04/29/21 04:47 morphine Allergy Rash/Hives Verified 04/29/21 04:47 naproxen Allergy Unknown Verified 04/29/21 04:47 papaya Allergy Rash/Hives Verified 04/29/21 04:47 prednisone Allergy Anaphylaxis Verified 04/29/21 04:47 prochlorperazine Allergy Anaphylaxis Verified 04/29/21 04:47 [From Compazine] red dye Allergy Rash/Hives Verified 04/29/21 04:47 venom-honey bee Allergy Anaphylaxis Verified 04/29/21 04:47 [bee venom (honey bee)] ketorolac [From Toradol] AdvReac Severe Abdominal Verified 04/29/21 04:47 Pain baclofen AdvReac Twitching Verified 04/29/21 04:47 buspirone [From BuSpar] AdvReac Confusion Verified 04/29/21 04:47 ibuprofen [From Motrin] AdvReac Abdominal Verified 04/29/21 04:47 Pain meperidine [From Demerol] AdvReac Rapid Verified 04/29/21 04:47 Heart Rate Phenothiazines AdvReac Altered Verified 04/29/21 04:47 Mental Status Review of Systems ROS Statement: Those systems with pertinent positive or pertinent negative responses have been documented in the HPI. ROS Other: All systems not noted in ROS Statement are negative. Constitutional: Denies: fever, chills Respiratory: Denies: cough, dyspnea Cardiovascular: Denies: chest pain, palpitations, edema Gastrointestinal: Denies: abdominal pain, vomiting, diarrhea Genitourinary: Denies: dysuria, hematuria Musculoskeletal: Reports: as per HPI, myalgia. Denies: back pain Skin: Denies: rash Neurological: Denies: headache, weakness, numbness Past Medical History Past Medical History: Asthma, Cancer, COPD, GERD/Reflux, Hypertension, P neumonia, Thyroid Disorder Additional Past Medical History / Comment(s): shingles, RT BREAST LUMPECTOMY/CANCER, THYROID REMOVE, CATARACTS, BRONCHITIS, MONO TEENAGER, LITE CASE OF POLIO AGE 8, MELANOMA SKIN CANCER REMOVED, r shoulder rotator tear History of Any Multi-Drug Resistant Organisms: MRSA Date of last positivie culture/infection: 2009 MDRO Source:: LEFT ULNAR BONE, kidneys Past Surgical History: Appendectomy, Back Surgery, Cholecystectomy, Orthopedic Surgery Additional Past Surgical History / Comment(s): EYE SX FOR LAZY EYE, SX ON TEAR DUCTS, BACK SURGERY MICRO DISC, LT WRIST BROKEN 7 GALLO HAD 13 Surgeries TO CORRECT, left shoulder and humorous shattered from a fall with 2 surgeries to correct, LAPROSCOPIES- BENIGN TUNOR SIZE OF GRAPFRUIT REMOVED AGE 11 OR 1, RT BREAST BX/LUMPECTOMY,LT PINK FINGER SX TO STRAIGHTEN.MELANOMA SKIN CANCER REMOVED. Past Anesthesia/Blood Transfusion Reactions: No Reported Reaction Additional Past Anesthesia/Blood Transfusion Reaction / Comment(s): CLAUSTERPHOBIA Past Psychological History: Anxiety, Depression, PTSD Smoking Status: Never smoker Past Alcohol Use History: Occasional Past Drug Use History: None Reported - Past Family History Mother Family Medical History: Asthma Additional Family Medical History / Comment(s): ETOH/SMOKER Father Family Medical History: Cancer, Liver Disease Additional Family Medical History / Comment(s): ESOPHOGEAL CANCER, ETOH General Exam Limitations: no limitations General appearance: alert, in no apparent distress Head exam: Present: atraumatic, normocephalic Eye exam: Present: normal appearance. Absent: scleral icterus, conjunctival injection ENT exam: Present: normal oropharynx Neck exam: Present: normal inspection Respiratory exam: Present: normal lung sounds bilaterally. Absent: respiratory distress, wheezes, rales, rhonchi, stridor Cardiovascular Exam: Present: regular rate, normal rhythm, normal heart sounds. Absent: systolic murmur, diastolic murmur, rubs, gallop GI/Abdominal exam: Present: soft. Absent: distended, tenderness, guarding, rebound, rigid, mass Extremities exam: Present: normal inspection, full ROM, tenderness, normal capillary refill. Absent: pedal edema, calf tenderness Back exam: Present: normal inspection Neurological exam: Present: alert, reflexes normal. Absent: motor sensory deficit Skin exam: Present: warm, dry, intact, normal color. Absent: rash Course Vital Signs 04/29/21 04/29/21 04:47 06:47 Temperature 97.9 F Pulse Rate 81 67 Respiratory 16 16 Rate Blood Pressure 116/67 107/66 O2 Sat by Pulse 97 95 Oximetry Medical Decision Making - Lab Data Result diagrams: 04/29/21 05:46 04/29/21 05:46 Lab Results 04/29/21 04/29/21 04/29/21 Range/Units 05:46 05:46 05:46 WBC 7.8 (3.8-10.6) k/uL RBC 3.89 (3.80-5.40) m/uL Hgb 11.9 (11.4-16.0) gm/dL Hct 38.4 (34.0-46.0) % MCV 98.8 (80.0-100.0) fL MCH 30.5 (25.0-35.0) pg MCHC 30.9 L (31.0-37.0) g/dL RDW 14.9 (11.5-15.5) % Plt Count 295 (150-450) k/uL MPV 11.0 Neutrophils % 52 % Lymphocytes % 36 % Monocytes % 9 % Eosinophils % 2 % Basophils % 0 % Neutrophils # 4.1 (1.3-7.7) k/uL Lymphocytes # 2.8 (1.0-4.8) k/uL Monocytes # 0.7 (0-1.0) k/uL Eosinophils # 0.1 (0-0.7) k/uL Basophils # 0.0 (0-0.2) k/uL Sodium 135 L (137-145) mmol/L Potassium 5.9 H (3.5-5.1) mmol/L Chloride 105 (98-107) mmol/L Carbon Dioxide 24 (22-30) mmol/L Anion Gap 6 mmol/L BUN 34 H (7-17) mg/dL Creatinine 1.14 H (0.52-1.04) mg/dL Est GFR (CKD-EPI)AfAm 56 (>60 ml/min/1.73 sqM) Est GFR (CKD-EPI)NonAf 48 (>60 ml/min/1.73 sqM) Glucose 94 (74-99) mg/dL Calcium 9.3 (8.4-10.2) mg/dL Magnesium 2.1 (1.6-2.3) mg/dL Total Bilirubin 1.3 (0.2-1.3) mg/dL AST 61 H (14-36) U/L ALT 35 H (4-34) U/L Alkaline Phosphatase 95 (38-126) U/L CK-MB (CK-2) 1.6 (0.0-2.4) ng/mL Total Protein 7.2 (6.3-8.2) g/dL Albumin 4.1 (3.5-5.0) g/dL Disposition Clinical Impression: Muscle spasm Disposition: HOME SELF-CARE Condition: Good Instructions (If sedation given, give patient instructions): Muscle Spasm (ED) Is patient prescribed a controlled substance at d/c from ED?: No Referrals: Julito Pina MD [Primary Care Provider] - 1-2 days
[2021-04-29 06:29] LABS: Albumin 4.1 g/dL (3.5-5.0); Calcium 9.3 mg/dL (8.4-10.2); Magnesium 2.1 mg/dL (1.6-2.3); Total Bilirubin 1.3 mg/dL (0.2-1.3); Total Protein 7.2 g/dL (6.3-8.2)
[2021-04-29 06:31] LABS: Potassium 5.9 mmol/L (3.5-5.1)
[2021-04-29 06:59] LABS: Basophils % (A) 0 %; Eosinophils # (A) 0.1 k/uL (0-0.7); Eosinophils % (A) 2 %; HCT 38.4 % (34.0-46.0); HGB 11.9 gm/dL (11.4-16.0); Lymphocytes # (A) 2.8 k/uL (1.0-4.8); Lymphocytes % (A) 36 %; MCH 30.5 pg (25.0-35.0); MCHC 30.9 g/dL (31.0-37.0); MCV 98.8 fL (80.0-100.0); Monocytes # (A) 0.7 k/uL (0-1.0); Monocytes % (A) 9 %; Neutrophils # (A) 4.1 k/uL (1.3-7.7); Neutrophils % (A) 52 %; Platelet Count 295 k/uL (150-450); RBC 3.89 m/uL (3.80-5.40); RDW 14.9 % (11.5-15.5); WBC 7.8 k/uL (3.8-10.6)
[2021-04-29 07:37] VITALS: BP 100/54; PULSE 78; RESP 18; TEMP 97.8
== END 2021-04-29 07:35 | disposition home or self-care (01) ==
LOC: EC 04:43
DX: M62.838 Other muscle spasm (principal); I10 Essential (primary) hypertension; J44.9 Chronic obstructive pulmonary disease, unspecified; K21.9 Gastro-esophageal reflux disease without esophagitis; F32.A Depression, unspecified; F41.9 Anxiety disorder, unspecified; Z79.51 Long term (current) use of inhaled steroids; Z79.82 Long term (current) use of aspirin; Z79.899 Other long term (current) drug therapy
CPT/HCPCS: 36415; 80053; 82553; 83735; 85025; 99284

== ENCOUNTER 2021-10-18 10:59 | Emergency (ER) | payer MEDICARE, OTHER ==
[2021-10-18 11:10] VITALS: TEMP 98.4
[2021-10-18] MEDS ORDERED: HYDROcodone/APAP 7.5-325MG 1 EACH TAB PO ONE (11:32)
--- NOTE | 2021-10-18 11:37 | ED ---
General Adult HPI - General Chief complaint: Extremity Problem,Nontraumatic Stated complaint: knee/kidney pain Time Seen by Provider: 10/18/21 11:13 Source: patient, RN notes reviewed Mode of arrival: ambulatory Limitations: no limitations - History of Present Illness Initial comments: Patient is a 71-year-old female presents the emergency room with complaints of bilateral knee pain that has worsened over the last 3 days upon further discussion she reports that she was on [employer] 7. 09/08/2024 from pain management and following with Dr. D[facility]. Their plans to do Hylan injections bilaterally. She states that she ran out of her prescription, specific receive a refill on Tuesday but has not received the medication. She reports that the [employer] was helping control her pain previously. She denies any new trauma or changes in range of motion. She is also complaining of pain with urination and bilateral flank pain right greater than left ongoing since Tuesday of last week. She states that she increased her fluid intake and took Pyridium [id number] to help treat symptoms however symptoms returned on without any improvement she complains with associated nausea without emesis. She denies any hematuria, urinary order, abdominal pain, fevers or chills. She has past medical history significant for thyroid disease, hypertension, arthritis, breast cancer, COPD and asthma. She denies any renal disease. She denies any other complaints or concerns at this time. - Related Data Home Medications Medication Instructions Recorded Confirmed Pantoprazole Sodium [Protonix] 40 mg PO BID 04/09/16 06/17/21 EPINEPHrine [Epipen 2-River] 0.3 mg IM ONCE PRN 11/16/16 06/17/21 Nitroglycerin Sl Tabs [Nitrostat] 0.4 mg SUBLINGUAL Q5M PRN 11/16/16 06/17/21 Sucralfate [Carafate] 1 gm PO TID 12/13/16 06/17/21 Losartan Potassium 50 mg PO DAILY 09/16/17 06/17/21 diazePAM [Valium] 5 mg PO DAILY PRN 09/16/17 06/17/21 DULoxetine HCL [Cymbalta] 120 mg PO DAILY 04/24/18 06/17/21 Levothyroxine Sodium [Synthroid] 88 mcg PO DAILY 04/24/18 06/17/21 buPROPion HCL [Wellbutrin SR] 200 mg PO BID 08/11/18 06/17/21 Hydrochlorothiazide 12.5 mg PO DAILY 09/12/18 06/17/21 [hydroCHLOROthiazide] Lidocaine 5% Oint [Xylocaine 5% 1 applic TOPICAL BID PRN 01/14/19 06/17/21 Oint] Albuterol Sulfate [Proair Hfa] 1 - 2 puff INHALATION RT-Q4H PRN 03/21/19 06/17/21 Fluticasone Nasal [place] [Flonase 1 spray EA NOSTRIL BID PRN 03/21/19 06/17/21 Nasal [place]] diphenhydrAMINE [Benadryl] 50 mg PO HS 03/21/19 06/17/21 Ondansetron [Zofran] 4 mg PO Q8H PRN 11/08/19 06/17/21 Ascorbic Acid [Vitamin C] 1,000 mg PO DAILY 12/12/20 06/17/21 Fexofenadine HCl [[place] Allergy] 180 mg PO DAILY PRN 12/12/20 06/17/21 valACYclovir HCL [Valtrex] 1,000 mg PO BID 12/12/20 06/17/21 Biotin Gummy 1 tab PO DAILY 06/17/21 06/17/21 HYDROcodone/APAP 7.5-325MG [[employer] 1 tab PO BID 06/17/21 06/17/21 7.5-325] Metoprolol Tartrate [Lopressor] 25 mg PO BID 06/17/21 06/17/21 Multivitamin [Multivitamins Adult 1 tab PO DAILY 06/17/21 06/17/21 Gummies] Promethaz-Cod 6.25-10 mg/5 ml 5 ml PO Q6H PRN 06/17/21 06/17/21 [Phenergan with Codeine] Vitamin E 400 unit PO DAILY 06/17/21 06/17/21 Previous Rx's Medication Instructions Recorded Cephalexin [Keflex] 500 mg PO QID 10 Days #40 cap 06/17/21 Nitrofurantoin Monohyd/M-Cryst 100 mg PO Q12HR 5 Days #10 cap 10/18/21 [Macrobid] Allergies Allergy/AdvReac Type Severity Reaction Status Date / Time buprenorphine [From Butrans] Allergy pain Verified 10/18/21 11:07 carisoprodol [From Soma] Allergy Unknown Verified 10/18/21 11:07 chlorpromazine Allergy Unknown Verified 10/18/21 11:07 [From Thorazine] ciprofloxacin [From Cipro] Allergy Unknown Verified 10/18/21 11:07 clonazepam [From Klonopin] Allergy Unknown Verified 10/18/21 11:07 cyclobenzaprine Allergy Unknown Verified 10/18/21 11:07 [From Flexeril] metoclopramide [From Reglan] Allergy Anaphylaxis Verified 10/18/21 11:07 metronidazole [From Flagyl] Allergy Anaphylaxis Verified 10/18/21 11:07 morphine Allergy Rash/Hives Verified 10/18/21 11:07 naproxen Allergy Unknown Verified 10/18/21 11:07 papaya Allergy Rash/Hives Verified 10/18/21 11:07 prednisone Allergy Anaphylaxis Verified 10/18/21 11:07 prochlorperazine Allergy Anaphylaxis Verified 10/18/21 11:07 [From Compazine] red dye Allergy Rash/Hives Verified 10/18/21 11:07 venom-honey bee Allergy Anaphylaxis Verified 10/18/21 11:07 [bee venom (honey bee)] ketorolac [From Toradol] AdvReac Severe Abdominal Verified 10/18/21 11:07 Pain baclofen AdvReac Twitching Verified 10/18/21 11:07 buspirone [From BuSpar] AdvReac Confusion Verified 10/18/21 11:07 ibuprofen [From Motrin] AdvReac Abdominal Verified 10/18/21 11:07 Pain meperidine [From Demerol] AdvReac Rapid Verified 10/18/21 11:07 Heart Rate Phenothiazines AdvReac Altered Verified 10/18/21 11:07 Mental Status Review of Systems ROS Statement: Those systems with pertinent positive or pertinent negative responses have been documented in the HPI. ROS Other: All systems not noted in ROS Statement are negative. Past Medical History Past Medical History: Asthma, Cancer, COPD, GERD/Reflux, Hypertension, Pneumonia, Thyroid Disorder Additional Past Medical History / Comment(s): shingles, RT BREAST LUMPECTOMY/CANCER, THYROID REMOVE, CATARACTS, BRONCHITIS, MONO TEENAGER, LITE CASE OF POLIO AGE 8, MELANOMA SKIN CANCER REMOVED, r shoulder rotator tear History of Any Multi-Drug Resistant Organisms: MRSA Date of last positivie culture/infection: 2009 MDRO Source:: LEFT ULNAR BONE, kidneys Past Surgical History: Appendectomy, Back Surgery, Cholecystectomy, Orthopedic Surgery Additional Past Surgical History / Comment(s): EYE SX FOR LAZY EYE, SX ON TEAR DUCTS, BACK SURGERY MICRO DISC, LT WRIST BROKEN 9 [place] HAD 13 Surgeries TO CORRECT, left shoulder and humorous shattered from a fall with 2 surgeries to correct, LAPROSCOPIES- BENIGN TUNOR SIZE OF GRAPFRUIT REMOVED AGE 11 OR 1, RT BREAST BX/LUMPECTOMY,LT PINK FINGER SX TO STRAIGHTEN.MELANOMA SKIN CANCER REMOVED. Past Anesthesia/Blood Transfusion Reactions: No Reported Reaction Additional Past Anesthesia/Blood Transfusion Reaction / Comment(s): CLAUSTERPHOBIA Past Psychological History: Anxiety, Depression, PTSD Smoking Status: Never smoker Past Alcohol Use History: Occasional Past Drug Use History: None Reported - Past Family History Mother Family Medical History: Asthma Additional Family Medical History / Comment(s): ETOH/SMOKER Father Family Medical History: Cancer, Liver Disease Additional Family Medical History / Comment(s): ESOPHOGEAL CANCER, ETOH General Exam Limitations: no limitations General appearance: alert, in no apparent distress Head exam: Present: atraumatic, normocephalic, normal inspection Eye exam: Present: normal appearance, PERRL, EOMI. Absent: scleral icterus, conjunctival injection, periorbital swelling ENT exam: Present: normal exam, mucous membranes moist Neck exam: Present: normal inspection. Absent: tenderness, meningismus, lymphadenopathy GI/Abdominal exam: Present: soft, normal bowel sounds. Absent: distended, tenderness, guarding, rebound, rigid Extremities exam: Present: normal inspection. Absent: full ROM (limited due to pain full passive ROM), tenderness, normal capillary refill, pedal edema, calf tenderness Back exam: Present: CVA tenderness (R) (mild), CVA tenderness (L) (mild) Neurological exam: Present: alert, oriented X3, CN II-XII intact Psychiatric exam: Present: normal affect, normal mood Skin exam: Present: warm, dry, intact, normal color. Absent: rash Course Vital Signs 10/18/21 11:07 Temperature 98.4 F Pulse Rate 82 Respiratory 16 Rate Blood Pressure 143/92 O2 Sat by Pulse 97 Oximetry Medical Decision Making - Medical Decision Making No trauma or change in range of motion. No point tenderness or effusions noted. Patient is established with pain management and orthopedics outpatient. No need for new referrals. No need for diagnostic imaging a bilateral knees at this time. Will give outpatient medication of [employer] and evaluate response to pain. Due to flank pain associated with painful urination will check UA and KUB and follow-up accordingly. Bilateral knee pain improved with a dose of [employer] 7.5/325 without side effects. KUB negative for significant abnormalities. Urinalysis positive for bacteria and leukocytes. Patient with multiple medication ALLERGIES. Medication options reviewed with patient will place on macobid outpatient. Encourage good oral hydration avoidance of Pyridium and reviewed return parameters. Advised to follow-up with orthopedist and pain management in regards to bilateral knee pain. - Lab Data Lab Results 10/18/21 Range/Units 11:44 Urine Color Yellow Urine Appearance Cloudy H (Clear) Urine pH 5.5 (5.0-8.0) Ur Specific [place] 1.023 (1.001-1.035) Urine Protein Negative (Negative) Urine Glucose (UA) Negative (Negative) Urine Ketones Negative (Negative) Urine Blood Negative (Negative) Urine Nitrite Negative (Negative) Urine Bilirubin Negative (Negative) Urine Urobilinogen <2.0 (<2.0) mg/dL Ur Leukocyte Esterase Moderate H (Negative) Urine RBC 1 (0-5) /hpf Urine WBC 10 H (0-5) /hpf Ur Squamous Epith Cells 1 (0-4) /hpf Urine Bacteria Occasional H (None) /hpf Urine Mucus Rare H (None) /hpf - Radiology Data Radiology results: report reviewed, image reviewed KUB impression no significant abnormality seen. Disposition Clinical Impression: UTI (urinary tract infection), Arthritis of both knees Disposition: HOME SELF-CARE Condition: Fair Instructions (If sedation given, give patient instructions): Urinary Tract Infection in Women (ED), Arthralgia (ED) Additional Instructions: Please return to the Emergency Department if symptoms worsen or any other concerns. Prescriptions: Nitrofurantoin Monohyd/M-Cryst [Macrobid] 100 mg PO Q12HR 5 Days #10 cap Is patient prescribed a controlled substance at d/c from ED?: No Referrals: None,Stated [Primary Care Provider] - 1-2 days Aden Dillard MD [Medical Doctor] - (7-10 days) Decision Time: 12:31
--- NOTE | 2021-10-18 12:10 | XR ---
KUB HISTORY: Flank pain and dysuria COMPARISON: 02/28/2020. TECHNIQUE: 2 upright views of the abdomen were obtained. FINDINGS: The lung bases are clear. There is no free air beneath the diaphragm. The bowel gas pattern is nonspecific. There is no suspicious abdominal or pelvic calcification. There are postsurgical changes of cholecystectomy. The osseous structures are intact. IMPRESSION: No significant abnormality seen.
[2021-10-18 12:15] LABS: Appearance,Urine Cloudy (Clear); Bacteria,Urine Occasional /hpf; Bilirubin,Urine Negative (Negative); Blood,Urine Negative (Negative); Color,Urine Yellow; Glucose,Urine (UA) Negative (Negative); Ketones,Urine Negative (Negative); Leukocyte Esterase,Urine Moderate (Negative); Mucus,Urine Rare /hpf; Nitrite,Urine Negative (Negative); PH, Urine 5.5 (5.0-8.0); Protein,Urine Negative (Negative); RBC,Urine 1 /hpf (0-5); Specific Gravity,Urine 1.023 (1.001-1.035); Squamous Epithelial Cell,Urine 1 /hpf (0-4); Urobilinogen,Urine <2.0 mg/dL (<2.0); WBC,Urine 10 /hpf (0-5)
[2021-10-18 12:59] VITALS: PULSE 75
[2021-10-18 13:37] VITALS: BP 142/78; RESP 20
== END 2021-10-18 13:37 | disposition home or self-care (01) ==
LOC: EC 10:59
DX: N39.0 Urinary tract infection, site not specified (principal); M13.862 Other specified arthritis, left knee; M13.861 Other specified arthritis, right knee; J44.9 Chronic obstructive pulmonary disease, unspecified; K21.9 Gastro-esophageal reflux disease without esophagitis; Z79.83 Long term (current) use of bisphosphonates; I10 Essential (primary) hypertension; E07.9 Disorder of thyroid, unspecified; Z79.1 Long term (current) use of non-steroidal anti-inflammatories (NSAID); Z88.5 Allergy status to narcotic agent; Z88.6 Allergy status to analgesic agent; Z91.018 Allergy to other foods; Z88.8 Allergy status to other drugs, medicaments and biological substances; Z88.9 Allergy status to unspecified drugs, medicaments and biological substances; Z91.030 Bee allergy status; Z88.1 Allergy status to other antibiotic agents; Z88.4 Allergy status to anesthetic agent
CPT/HCPCS: 74018; 81001; 99283

== ENCOUNTER 2021-12-22 17:04 | Emergency (ER) | payer MEDICARE, OTHER ==
[2021-12-22 18:00] VITALS: RESP 18; TEMP 98.2
[2021-12-22 19:11] LABS: Appearance,Urine Clear (Clear); Bacteria,Urine Few /hpf; Bilirubin,Urine Negative (Negative); Blood,Urine Negative (Negative); Color,Urine Yellow; Glucose,Urine (UA) Negative (Negative); Hyaline Casts,Urine 10 /lpf (0-2); Ketones,Urine Trace (Negative); Leukocyte Esterase,Urine Large (Negative); Mucus,Urine Few /hpf; Nitrite,Urine Positive (Negative); Protein,Urine Trace (Negative); RBC,Urine 3 /hpf (0-5); Specific Gravity,Urine 1.027 (1.001-1.035); Squamous Epithelial Cell,Urine 1 /hpf (0-4); Urobilinogen,Urine <2.0 mg/dL (<2.0); WBC,Urine 41 /hpf (0-5)
[2021-12-22] MEDS ORDERED: ONDANSETRON 4 MG/2 ML VIAL IVP STA (19:45)
[2021-12-22] MEDS ORDERED: cefTRIAXone IN SWFI 1,000 MG/10 ML SYRINGE IVP STA (19:46)
--- NOTE | 2021-12-22 20:04 | ED ---
Female Urogenital HPI - General Chief complaint: Urogenital Stated complaint: urogenital, nausea Time Seen by Provider: 12/22/21 19:31 Source: patient Mode of arrival: ambulatory - History of Present Illness Initial comments: This is a 71-year-old female who presents to the emergency department with concerns of a UTI. States that beginning 2 months ago, she has been diagnosed w ith UTIs twice and was subsequently treated with antibiotics. Her symptoms improved for a few weeks, and one week ago she began to develop burning with urination, back pain, and lower abdominal pain/pressure. States that symptoms are continuing to get worse. She has associated nausea and vomiting, states that she attributes this to being on antibiotics for so long. However, she has not taken antibiotics for a few weeks. Denies any fevers or chills. Denies any fevers, chills, sore throat, cough, dyspnea, chest pain, palpitations, abdominal pain, diarrhea, or headaches. MD Complaint: dysuria Onset/Timin -: week(s) - Related Data Home Medications Medication Instructions Recorded Confirmed Pantoprazole Sodium [Protonix] 40 mg PO BID 04/09/16 06/17/21 EPINEPHrine [Epipen 2-River] 0.3 mg IM ONCE PRN 11/16/16 06/17/21 Nitroglycerin Sl Tabs [Nitrostat] 0.4 mg SUBLINGUAL Q5M PRN 11/16/16 06/17/21 Sucralfate [Carafate] 1 gm PO TID 12/13/16 06/17/21 Losartan Potassium 50 mg PO DAILY 09/16/17 06/17/21 diazePAM [Valium] 5 mg PO DAILY PRN 09/16/17 06/17/21 DULoxetine HCL [Cymbalta] 120 mg PO DAILY 04/24/18 06/17/21 Levothyroxine Sodium [Synthroid] 88 mcg PO DAILY 04/24/18 06/17/21 buPROPion HCL [Wellbutrin SR] 200 mg PO BID 08/11/18 06/17/21 hydroCHLOROthiazide 12.5 mg PO DAILY 09/12/18 06/17/21 Lidocaine 5% Oint [Xylocaine 5% 1 applic TOPICAL BID PRN 01/14/19 06/17/21 Oint] Albuterol Sulfate [Proair Hfa] 1 - 2 puff INHALATION RT-Q4H PRN 03/21/19 06/17/21 Fluticasone Nasal [place] [Flonase 1 spray EA NOSTRIL BID PRN 03/21/19 06/17/21 Nasal [place]] diphenhydrAMINE [Benadryl] 50 mg PO HS 03/21/19 06/17/21 Ondansetron [Zofran] 4 mg PO Q8H PRN 11/08/19 06/17/21 Ascorbic Acid [Vitamin C] 1,000 mg PO DAILY 12/12/20 06/17/21 Fexofenadine HCl [[place] Allergy] 180 mg PO DAILY PRN 12/12/20 06/17/21 valACYclovir HCL [Valtrex] 1,000 mg PO BID 12/12/20 06/17/21 Biotin Gummy 1 tab PO DAILY 06/17/21 06/17/21 HYDROcodone/APAP 7.5-325MG [[place] 1 tab PO BID 06/17/21 06/17/21 7.5-325] Metoprolol Tartrate [Lopressor] 25 mg PO BID 06/17/21 06/17/21 Multivitamin [Multivitamins Adult 1 tab PO DAILY 06/17/21 06/17/21 Gummies] Promethaz-Cod 6.25-10 mg/5 ml 5 ml PO Q6H PRN 06/17/21 06/17/21 [Phenergan with Codeine] Vitamin E 400 unit PO DAILY 06/17/21 06/17/21 Previous Rx's Medication Instructions Recorded Cephalexin [Keflex] 500 mg PO QID 10 Days #40 cap 06/17/21 Nitrofurantoin Monohyd/M-Cryst 100 mg PO Q12HR 5 Days #10 cap 10/18/21 [Macrobid] cefUROXime axetiL [Ceftin] 500 mg PO BID 10 Days #20 tab 12/22/21 diazePAM 10 mg PO Q8H PRN 3 Days #9 tab 12/22/21 diphenhydrAMINE [Benadryl] 50 mg PO HS #30 capsule 12/22/21 Allergies Allergy/AdvReac Type Severity Reaction Status Date / Time buprenorphine [From Butrans] Allergy pain Verified 12/22/21 18:00 carisoprodol [From Soma] Allergy Unknown Verified 12/22/21 18:00 chlorpromazine Allergy Unknown Verified 12/22/21 18:00 [From Thorazine] ciprofloxacin [From Cipro] Allergy Unknown Verified 12/22/21 18:00 clonazepam [From Klonopin] Allergy Unknown Verified 12/22/21 18:00 cyclobenzaprine Allergy Unknown Verified 12/22/21 18:00 [From Flexeril] metoclopramide [From Reglan] Allergy Anaphylaxis Verified 12/22/21 18:00 metronidazole [From Flagyl] Allergy Anaphylaxis Verified 12/22/21 18:00 morphine Allergy Rash/Hives Verified 12/22/21 18:00 naproxen Allergy Unknown Verified 12/22/21 18:00 papaya Allergy Rash/Hives Verified 12/22/21 18:00 prednisone Allergy Anaphylaxis Verified 12/22/21 18:00 prochlorperazine Allergy Anaphylaxis Verified 12/22/21 18:00 [From Compazine] red dye Allergy Rash/Hives Verified 12/22/21 18:00 venom-honey bee Allergy Anaphylaxis Verified 12/22/21 18:00 [bee venom (honey bee)] ketorolac [From Toradol] AdvReac Severe Abdominal Verified 12/22/21 18:00 Pain baclofen AdvReac Twitching Verified 12/22/21 18:00 buspirone [From BuSpar] AdvReac Confusion Verified 12/22/21 18:00 ibuprofen [From Motrin] AdvReac Abdominal Verified 12/22/21 18:00 Pain meperidine [From Demerol] AdvReac Rapid Verified 12/22/21 18:00 Heart Rate Phenothiazines AdvReac Altered Verified 12/22/21 18:00 Mental Status sulfamethoxazole AdvReac Rash/Hives Verified 12/22/21 18:00 [From Bactrim] trimethoprim [From Bactrim] AdvReac Rash/Hives Verified 12/22/21 18:00 Review of Systems ROS Statement: Those systems with pertinent positive or pertinent negative responses have been documented in the HPI. ROS Other: All systems not noted in ROS Statement are negative. Past Medical History Past Medical History: Asthma, Cancer, COPD, GERD/Reflux, Hypertension, Pneumonia, Thyroid Disorder Additional Past Medical History / Comment(s): shingles, RT BREAST LUMPECTOMY/CANCER, THYROID REMOVE, CATARACTS, BRONCHITIS, MONO TEENAGER, LITE CASE OF POLIO AGE 8, MELANOMA SKIN CANCER REMOVED, r shoulder rotator tear History of Any Multi-Drug Resistant Organisms: MRSA Date of last positivie culture/infection: 2009 MDRO Source:: LEFT ULNAR BONE, kidneys Past Surgical History: Appendectomy, Back Surgery, Cholecystectomy, Orthopedic Surgery Additional Past Surgical History / Comment(s): EYE SX FOR LAZY EYE, SX ON TEAR DUCTS, BACK SURGERY MICRO DISC, LT WRIST BROKEN 9 GALLO HAD 13 Surgeries TO CORRECT, left shoulder and humorous shattered from a fall with 2 surgeries to correct, LAPROSCOPIES- BENIGN TUNOR SIZE OF GRAPFRUIT REMOVED AGE 11 OR 1, RT BREAST BX/LUMPECTOMY,LT PINK FINGER SX TO STRAIGHTEN.MELANOMA SKIN CANCER REMOVED. Past Anesthesia/Blood Transfusion Reactions: No Reported Reaction Additional Past Anesthesia/Blood Transfusion Reaction / Comment(s): CLAUSTERPHOBIA Past Psychological History: Anxiety, Depression, PTSD Smoking Status: Never smoker Past Alcohol Use History: Occasional Past Drug Use History: None Reported - Past Family History Mother Family Medical History: Asthma Additional Family Medical History / Comment(s): ETOH/SMOKER Father Family Medical History: Cancer, Liver Disease Additional Family Medical History / Comment(s): ESOPHOGEAL CANCER, ETOH General Exam Limitations: no limitations General appearance: alert, in no apparent distress Head exam: Present: atraumatic, normocephalic, normal inspection Respiratory exam: Present: normal lung sounds bilaterally. Absent: respiratory distress, wheezes, rales, rhonchi, stridor Cardiovascular Exam: Present: regular rate, normal rhythm, normal heart sounds. Absent: systolic murmur, diastolic murmur, rubs, gallop, clicks GI/Abdominal exam: Present: soft, normal bowel sounds. Absent: distended, tenderness, guarding, rebound, rigid Back exam: Present: CVA tenderness (R), CVA tenderness (L) Neurological exam: Present: alert, oriented X3, CN II-XII intact Psychiatric exam: Present: normal affect, normal mood Skin exam: Present: warm, dry, intact, normal color. Absent: rash Course Vital Signs 12/22/21 12/22/21 12/22/21 17:56 20:13 21:46 Temperature 98.2 F Pulse Rate 71 68 72 Respiratory 18 18 18 Rate Blood Pressure 129/72 181/66 147/68 O2 Sat by Pulse 99 97 99 Oximetry Medical Decision Making - Medical Decision Making This is a 71-year-old female who presents to the emergency department for lower abdominal pain/pressure and dysuria. Urinalysis consistent with a urinary tract infection. She also has an acute kidney injury on laboratory studies. Discussed with the patient the concern that she is actively vomiting, and that she may be unable to keep down her antibiotics. She was given a dose of ceftriaxone in the emergency department. Patient states that she wishes to be discharged home, as she has Zofran at home and believes she can manage the vomiting. Prescription for Ceftin provided. Patient does have multiple noted antibiotic allergies, and she has been on multiple antibiotics recently, making the choice of which antibiotic to prescribe somewhat difficult. She was given a 3 day refill on her Valium, which she states helped the pain and nausea/vomiting, as her Zofran is not always effective and she is unable to tolerate other nausea medication. She also requested a refill on Benadryl 50 mg. Reminded the patient that these are both sedating, and she should avoid taking them together and while driving or operating machinery. Patient states that she has taken these medications for several years and is aware of the risks and accepts them. Return precautions reviewed in depth, the patient is instructed to return to the emergency department with any new, worsening, or concerning symptoms. Patient verbalized understanding. This case was discussed in detail with the attending ED physician. Presentation, findings, and treatment plan discussed in detail as well. - Lab Data Result diagrams: 12/22/21 19:55 12/22/21 19:55 Lab Results 12/22/21 12/22/21 12/22/21 Range/Units 18:51 19:55 19:55 WBC 9.6 (3.8-10.6) k/uL RBC 4.21 (3.80-5.40) m/uL Hgb 12.9 (11.4-16.0) gm/dL Hct 41.0 (34.0-46.0) % MCV 97.6 (80.0-100.0) fL MCH 30.7 (25.0-35.0) pg MCHC 31.4 (31.0-37.0) g/dL RDW 15.3 (11.5-15.5) % Plt Count 402 (150-450) k/uL MPV 8.8 Neutrophils % 72 % Lymphocytes % 19 % Monocytes % 6 % Eosinophils % 2 % Basophils % 1 % Neutrophils # 6.9 (1.3-7.7) k/uL Lymphocytes # 1.8 (1.0-4.8) k/uL Monocytes # 0.6 (0-1.0) k/uL Eosinophils # 0.2 (0-0.7) k/uL Basophils # 0.1 (0-0.2) k/uL Sodium 137 (137-145) mmol/L Potassium 4.3 (3.5-5.1) mmol/L Chloride 100 (98-107) mmol/L Carbon Dioxide 24 (22-30) mmol/L Anion Gap 13 mmol/L BUN 28 H (7-17) mg/dL Creatinine 1.20 H (0.52-1.04) mg/dL Est GFR (CKD-EPI)AfAm 52 (>60 ml/min/1.73 sqM) Est GFR (CKD-EPI)NonAf 45 (>60 ml/min/1.73 sqM) Glucose 84 (74-99) mg/dL Calcium 9.5 (8.4-10.2) mg/dL Total Bilirubin 0.8 (0.2-1.3) mg/dL AST 36 (14-36) U/L ALT 29 (4-34) U/L Alkaline Phosphatase 112 (38-126) U/L Total Protein 7.3 (6.3-8.2) g/dL Albumin 4.5 (3.5-5.0) g/dL Urine Color Yellow Urine Appearance Clear (Clear) Urine pH 6.0 (5.0-8.0) Ur Specific [place] 1.027 (1.001-1.035) Urine Protein Trace H (Negative) Urine Glucose (UA) Negative (Negative) Urine Ketones Trace H (Negative) Urine Blood Negative (Negative) Urine Nitrite Positive H (Negative) Urine Bilirubin Negative (Negative) Urine Urobilinogen <2.0 (<2.0) mg/dL Ur Leukocyte Esterase Large H (Negative) Urine RBC 3 (0-5) /hpf Urine WBC 41 H (0-5) /hpf Ur Squamous Epith Cells 1 (0-4) /hpf Urine Bacteria Few H (None) /hpf Hyaline Casts 10 H (0-2) /lpf Urine Mucus Few H (None) /hpf Disposition Clinical Impression: Urinary tract infection Disposition: HOME SELF-CARE Instructions (If sedation given, give patient instructions): Urinary Tract Infection in Women (ED) Additional Instructions: Return to the emergency department with any new, worsening, or concerning symptoms. Take the antibiotic as prescribed for 10 days. Contact one of the primary care providers listed below to become established with a new group. Prescriptions: diphenhydrAMINE [Benadryl] 50 mg PO HS #30 capsule cefUROXime axetiL [Ceftin] 500 mg PO BID 10 Days #20 tab diazePAM 10 mg PO Q8H PRN 3 Days #9 tab PRN Reason: Pain Is patient prescribed a controlled substance at d/c from ED?: Yes When asked, does pt state using other controlled substances?: Yes If prescribed controlled substance>3 days was MAPS reviewed?: Prescribed <3 Days Referrals: None,Stated [Primary Care Provider] - 1-2 days Mercedez Lamar MD [REFERRING] - 1-2 days Dana Hennessy MD [STAFF PHYSICIAN] - 1-2 days Lizy Mccarthy MD [STAFF PHYSICIAN] - 1-2 days Betty Decker DO [REFERRING] - 1-2 days Matty Bronw MD [STAFF PHYSICIAN] - 1-2 days Sandor De La Cruz MD [STAFF PHYSICIAN] - 1-2 days
[2021-12-22 20:14] LABS: Basophils # (A) 0.1 k/uL (0-0.2); Basophils % (A) 1 %; Eosinophils # (A) 0.2 k/uL (0-0.7); Eosinophils % (A) 2 %; HGB 12.9 gm/dL (11.4-16.0); Lymphocytes # (A) 1.8 k/uL (1.0-4.8); Lymphocytes % (A) 19 %; MCH 30.7 pg (25.0-35.0); MCHC 31.4 g/dL (31.0-37.0); MCV 97.6 fL (80.0-100.0); Mean Platelet Volume 8.8; Monocytes # (A) 0.6 k/uL (0-1.0); Monocytes % (A) 6 %; Neutrophils # (A) 6.9 k/uL (1.3-7.7); Neutrophils % (A) 72 %; Platelet Count 402 k/uL (150-450); RBC 4.21 m/uL (3.80-5.40); RDW 15.3 % (11.5-15.5); WBC 9.6 k/uL (3.8-10.6)
[2021-12-22 20:26] LABS: Calcium 9.5 mg/dL (8.4-10.2); Total Bilirubin 0.8 mg/dL (0.2-1.3)
[2021-12-22 20:31] LABS: Total Protein 7.3 g/dL (6.3-8.2)
[2021-12-22 20:32] LABS: Albumin 4.5 g/dL (3.5-5.0); Potassium 4.3 mmol/L (3.5-5.1)
[2021-12-22] MEDS ORDERED: HYDROcodone/APAP 5-325MG 1 EACH TAB PO STA (20:35)
[2021-12-22] MEDS ORDERED: HYDROcodone/APAP 10-325MG 1 EACH TAB PO ONE (20:39)
[2021-12-22] MEDS ORDERED: diazePAM 5 MG TAB PO STA (21:20)
[2021-12-22 21:47] VITALS: BP 147/68; PULSE 72
== END 2021-12-22 22:08 | disposition home or self-care (01) ==
LOC: EC 17:04
DX: N39.0 Urinary tract infection, site not specified (principal); J45.909 Unspecified asthma, uncomplicated; K21.9 Gastro-esophageal reflux disease without esophagitis; Z79.83 Long term (current) use of bisphosphonates; I10 Essential (primary) hypertension; E07.9 Disorder of thyroid, unspecified; Z79.899 Other long term (current) drug therapy; Z88.6 Allergy status to analgesic agent; Z88.0 Allergy status to penicillin; Z88.8 Allergy status to other drugs, medicaments and biological substances; Z91.030 Bee allergy status; Z88.2 Allergy status to sulfonamides
CPT/HCPCS: 36415; 80053; 85025; 81001; 87086; 99284; 96374; 96375; J2405; J0696

== ENCOUNTER 2022-01-14 19:05 | Emergency (ER) | payer MEDICARE, OTHER ==
[2022-01-14] MEDS ORDERED: LORazepam 2 MG/ML INJ IV STA (19:15)
[2022-01-14 19:17] VITALS: RESP 20
--- NOTE | 2022-01-14 19:19 | ED ---
General Adult HPI - General Stated complaint: neuro symptoms Time Seen by Provider: 01/14/22 19:06 Source: patient, EMS, RN notes reviewed Mode of arrival: EMS Limitations: no limitations - History of Present Illness Initial comments: Patient is a pleasant 71-year-old female presenting to the emergency Department with left facial paresthesia. Onset of symptoms was around an hour ago. Patient has not noticed any weakness. No visual changes. No show any problems. No history of similar symptoms previously. Patient does admit to feeling anxious and is receptive to medication for this. - Related Data Home Medications Medication Instructions Recorded Confirmed Pantoprazole Sodium [Protonix] 40 mg PO BID 04/09/16 06/17/21 EPINEPHrine [Epipen 2-River] 0.3 mg IM ONCE PRN 11/16/16 06/17/21 Nitroglycerin Sl Tabs [Nitrostat] 0.4 mg SUBLINGUAL Q5M PRN 11/16/16 06/17/21 Sucralfate [Carafate] 1 gm PO TID 12/13/16 06/17/21 Losartan Potassium 50 mg PO DAILY 09/16/17 06/17/21 diazePAM [Valium] 5 mg PO DAILY PRN 09/16/17 06/17/21 DULoxetine HCL [Cymbalta] 120 mg PO DAILY 04/24/18 06/17/21 Levothyroxine Sodium [Synthroid] 88 mcg PO DAILY 04/24/18 06/17/21 buPROPion HCL [Wellbutrin SR] 200 mg PO BID 08/11/18 06/17/21 hydroCHLOROthiazide 12.5 mg PO DAILY 09/12/18 06/17/21 Lidocaine 5% Oint [Xylocaine 5% 1 applic TOPICAL BID PRN 01/14/19 06/17/21 Oint] Albuterol Sulfate [Proair Hfa] 1 - 2 puff INHALATION RT-Q4H PRN 03/21/19 06/17/21 Fluticasone Nasal [place] [Flonase 1 spray EA NOSTRIL BID PRN 03/21/19 06/17/21 Nasal [place]] diphenhydrAMINE [Benadryl] 50 mg PO HS 03/21/19 06/17/21 Ondansetron [Zofran] 4 mg PO Q8H PRN 11/08/19 06/17/21 Ascorbic Acid [Vitamin C] 1,000 mg PO DAILY 12/12/20 06/17/21 Fexofenadine HCl [[place] Allergy] 180 mg PO DAILY PRN 12/12/20 06/17/21 valACYclovir HCL [Valtrex] 1,000 mg PO BID 12/12/20 06/17/21 Biotin Gummy 1 tab PO DAILY 06/17/21 06/17/21 HYDROcodone/APAP 7.5-325MG [[place] 1 tab PO BID 06/17/21 06/17/21 7.5-325] Metoprolol Tartrate [Lopressor] 25 mg PO BID 06/17/21 06/17/21 Multivitamin [Multivitamins Adult 1 tab PO DAILY 06/17/21 06/17/21 Gummies] Promethaz-Cod 6.25-10 mg/5 ml 5 ml PO Q6H PRN 06/17/21 06/17/21 [Phenergan with Codeine] Vitamin E 400 unit PO DAILY 06/17/21 06/17/21 Previous Rx's Medication Instructions Recorded Cephalexin [Keflex] 500 mg PO QID 10 Days #40 cap 06/17/21 Nitrofurantoin Monohyd/M-Cryst 100 mg PO Q12HR 5 Days #10 cap 10/18/21 [Macrobid] cefUROXime axetiL [Ceftin] 500 mg PO BID 10 Days #20 tab 12/22/21 diazePAM 10 mg PO Q8H PRN 3 Days #9 tab 12/22/21 diphenhydrAMINE [Benadryl] 50 mg PO HS #30 capsule 12/22/21 buPROPion HCL [Wellbutrin SR] 200 mg PO BID #28 tab 01/14/22 Allergies Allergy/AdvReac Type Severity Reaction Status Date / Time buprenorphine [From Butrans] Allergy pain Verified 01/14/22 19:17 carisoprodol [From Soma] Allergy Unknown Verified 01/14/22 19:17 chlorpromazine Allergy Unknown Verified 01/14/22 19:17 [From Thorazine] ciprofloxacin [From Cipro] Allergy Unknown Verified 01/14/22 19:17 clonazepam [From Klonopin] Allergy Unknown Verified 01/14/22 19:17 cyclobenzaprine Allergy Unknown Verified 01/14/22 19:17 [From Flexeril] metoclopramide [From Reglan] Allergy Anaphylaxis Verified 01/14/22 19:17 metronidazole [From Flagyl] Allergy Anaphylaxis Verified 01/14/22 19:17 morphine Allergy Rash/Hives Verified 01/14/22 19:17 naproxen Allergy Unknown Verified 01/14/22 19:17 papaya Allergy Rash/Hives Verified 01/14/22 19:17 prednisone Allergy Anaphylaxis Verified 01/14/22 19:17 prochlorperazine Allergy Anaphylaxis Verified 01/14/22 19:17 [From Compazine] red dye Allergy Rash/Hives Verified 01/14/22 19:17 venom-honey bee Allergy Anaphylaxis Verified 01/14/22 19:17 [bee venom (honey bee)] ketorolac [From Toradol] AdvReac Severe Abdominal Verified 01/14/22 19:17 Pain baclofen AdvReac Twitching Verified 01/14/22 19:17 buspirone [From BuSpar] AdvReac Confusion Verified 01/14/22 19:17 ibuprofen [From Motrin] AdvReac Abdominal Verified 01/14/22 19:17 Pain meperidine [From Demerol] AdvReac Rapid Verified 01/14/22 19:17 Heart Rate Phenothiazines AdvReac Altered Verified 01/14/22 19:17 Mental Status sulfamethoxazole AdvReac Rash/Hives Verified 01/14/22 19:17 [From Bactrim] trimethoprim [From Bactrim] AdvReac Rash/Hives Verified 01/14/22 19:17 Review of Systems ROS Statement: Those systems with pertinent positive or pertinent negative responses have been documented in the HPI. ROS Other: All systems not noted in ROS Statement are negative. Constitutional: Denies: fever Eyes: Denies: eye pain ENT: Denies: ear pain Respiratory: Denies: cough Cardiovascular: Denies: chest pain Endocrine: Denies: fatigue Gastrointestinal: Denies: abdominal pain Genitourinary: Denies: dysuria Musculoskeletal: Denies: back pain Skin: Denies: rash Neurological: Reports: as per HPI, paresthesias Psychiatric: Reports: as per HPI, anxiety Past Medical History Past Medical History: Asthma, Cancer, COPD, GERD/Reflux, Hypertension, Pneumonia, Thyroid Disorder Additional Past Medical History / Comment(s): shingles, RT BREAST LUMPECTOMY/CANCER, THYROID REMOVE, CATARACTS, BRONCHITIS, MONO TEENAGER, LITE CASE OF POLIO AGE 8, MELANOMA SKIN CANCER REMOVED, r shoulder rotator tear History of Any Multi-Drug Resistant Organisms: MRSA Date of last positivie culture/infection: 2009 MDRO Source:: LEFT ULNAR BONE, kidneys Past Surgical History: Appendectomy, Back Surgery, Cholecystectomy, Orthopedic Surgery Additional Past Surgical History / Comment(s): EYE SX FOR LAZY EYE, SX ON TEAR DUCTS, BACK SURGERY MICRO DISC, LT WRIST BROKEN 9 GALLO HAD 13 Surgeries TO CORRECT, left shoulder and humorous shattered from a fall with 2 surgeries to correct, LAPROSCOPIES- BENIGN TUNOR SIZE OF GRAPFRUIT REMOVED AGE 11 OR 1, RT BREAST BX/LUMPECTOMY,LT PINK FINGER SX TO STRAIGHTEN.MELANOMA SKIN CANCER REMOVED. Past Anesthesia/Blood Transfusion Reactions: No Reported Reaction Additional Past Anesthesia/Blood Transfusion Reaction / Comment(s): CLAUSTERPHOBIA Past Psychological History: Anxiety, Depression, PTSD Smoking Status: Never smoker Past Alcohol Use History: Occasional Past Drug Use History: None Reported - Past Family History Mother Family Medical History: Asthma Additional Family Medical History / Comment(s): ETOH/SMOKER Father Family Medical History: Cancer, Liver Disease Additional Family Medical History / Comment(s): ESOPHOGEAL CANCER, ETOH General Exam Limitations: no limitations General appearance: alert, in no apparent distress Head exam: Present: normocephalic Eye exam: Present: normal appearance, PERRL, EOMI ENT exam: Present: normal oropharynx Respiratory exam: Present: normal lung sounds bilaterally Cardiovascular Exam: Present: regular rate, normal rhythm GI/Abdominal exam: Present: soft. Absent: tenderness Extremities exam: Present: normal inspection, full ROM Neurological exam: Present: alert, oriented X3, CN II-XII intact. Absent: motor sensory deficit Expanded Neurological exam: Present: protecting the airway Speech: Present: fluid speech Cranial nerves: EOM's Intact: Normal, Facial Sensation: Normal Sensory exam: Upper Extremity Light Touch: Normal, Lower Extremity Light Touch: Normal Motor strength exam: RUE: 5, LUE: 5, RLE: 5, LLE: 5 Eye Response: (4) open spontaneously Motor Response: (6) obeys commands Verbal Response: (5) oriented Psychiatric exam: Present: normal affect, normal mood Skin exam: Present: normal color Course Vital Signs 01/14/22 19:07 Temperature 98.2 F Pulse Rate 77 Respiratory 20 Rate Blood Pressure 132/73 O2 Sat by Pulse 98 Oximetry EKG Findings - EKG Comments: EKG Findings:: Sinus rhythm rate 69. First-degree AV block MD 202. QRS 84. QT 397. QTC 416. Normal axis. Normal QRS. No acute ST change. Medical Decision Making - Medical Decision Making Patient reevaluated and resting comfortably in bed. Patient request [place] 10 for her chronic sciatica. Patient also requests refill of Wellbutrin 200 twice a day until she can follow-up with her doctor in 2 weeks. - Lab Data Result diagrams: 01/14/22 19:20 01/14/22 19:20 Lab Results 01/14/22 01/14/22 Range/Units 19:20 19:20 WBC 6.8 (3.8-10.6) k/uL RBC 4.15 (3.80-5.40) m/uL Hgb 12.5 (11.4-16.0) gm/dL Hct 40.9 (34.0-46.0) % MCV 98.7 (80.0-100.0) fL MCH 30.1 (25.0-35.0) pg MCHC 30.5 L (31.0-37.0) g/dL RDW 15.0 (11.5-15.5) % Plt Count 318 (150-450) k/uL MPV 8.7 Neutrophils % 51 % Lymphocytes % 38 % Monocytes % 5 % Eosinophils % 2 % Basophils % 1 % Neutrophils # 3.5 (1.3-7.7) k/uL Lymphocytes # 2.6 (1.0-4.8) k/uL Monocytes # 0.3 (0-1.0) k/uL Eosinophils # 0.2 (0-0.7) k/uL Basophils # 0.1 (0-0.2) k/uL Sodium 137 (137-145) mmol/L Potassium 4.1 (3.5-5.1) mmol/L Chloride 100 (98-107) mmol/L Carbon Dioxide 25 (22-30) mmol/L Anion Gap 12 mmol/L BUN 33 H (7-17) mg/dL Creatinine 1.19 H (0.52-1.04) mg/dL Est GFR (CKD-EPI)AfAm 52 (>60 ml/min/1.73 sqM) Est GFR (CKD-EPI)NonAf 45 (>60 ml/min/1.73 sqM) Glucose 105 H (74-99) mg/dL Calcium 9.5 (8.4-10.2) mg/dL Magnesium 2.0 (1.6-2.3) mg/dL Total Bilirubin 0.3 (0.2-1.3) mg/dL AST 33 (14-36) U/L ALT 20 (4-34) U/L Alkaline Phosphatase 149 H (38-126) U/L Total Protein 6.8 (6.3-8.2) g/dL Albumin 4.3 (3.5-5.0) g/dL - Radiology Data Radiology results: report reviewed (CT brain does not reveal acute abnormality) Disposition Clinical Impression: Paresthesia Disposition: HOME SELF-CARE Condition: Stable Instructions (If sedation given, give patient instructions): Paresthesia (ED) Additional Instructions: Please do follow-up to primary care physician in the next day or 2 for recheck. Prescription sent to pharmacy. Return for weakness, loss of sensation, speech problems, confusion, worsening symptoms or other concerns. Prescriptions: buPROPion HCL [Wellbutrin SR] 200 mg PO BID #28 tab Is patient prescribed a controlled substance at d/c from ED?: No Referrals: Jean Marie Gonzáles MD [STAFF PHYSICIAN] - 1-2 days Time of Disposition: 21:33
[2022-01-14 19:35] LABS: Basophils # (A) 0.1 k/uL (0-0.2); Basophils % (A) 1 %; Eosinophils # (A) 0.2 k/uL (0-0.7); Eosinophils % (A) 2 %; HCT 40.9 % (34.0-46.0); HGB 12.5 gm/dL (11.4-16.0); Lymphocytes # (A) 2.6 k/uL (1.0-4.8); Lymphocytes % (A) 38 %; MCH 30.1 pg (25.0-35.0); MCHC 30.5 g/dL (31.0-37.0); MCV 98.7 fL (80.0-100.0); Mean Platelet Volume 8.7; Monocytes # (A) 0.3 k/uL (0-1.0); Monocytes % (A) 5 %; Neutrophils # (A) 3.5 k/uL (1.3-7.7); Neutrophils % (A) 51 %; Platelet Count 318 k/uL (150-450); RBC 4.15 m/uL (3.80-5.40); WBC 6.8 k/uL (3.8-10.6)
[2022-01-14 19:45] LABS: Albumin 4.3 g/dL (3.5-5.0); Calcium 9.5 mg/dL (8.4-10.2); Potassium 4.1 mmol/L (3.5-5.1); Total Bilirubin 0.3 mg/dL (0.2-1.3); Total Protein 6.8 g/dL (6.3-8.2)
--- NOTE | 2022-01-14 20:28 | CT ---
EXAMINATION TYPE: CT brain wo con DATE OF EXAM: 01/14/2022 HISTORY: weakness and facial numbness CT DLP: 1165.4 mGycm. Automated Exposure Control for Dose Reduction was Utilized. TECHNIQUE: CT scan of the head is performed without contrast. COMPARISON: 12/31/2021 FINDINGS: There is no acute intracranial hemorrhage or midline shift identified. There is diffuse v entricular and sulcal prominence consistent with diffuse age-related cerebral atrophy. There is low- attenuation in the periventricular white matter consistent with chronic small vessel ischemic change. The globes are intact and the visualized sinuses are clear. IMPRESSION: No acute intracranial hemorrhage or midline shift. There is diffuse age-related cerebra l atrophy and chronic small vessel ischemic change noted.
--- NOTE | 2022-01-14 21:18 | XR ---
EXAMINATION: XR chest 2V DATE AND TIME: 01/14/2022 7:47 PM CLINICAL INDICATION: PHH; Weakness TECHNIQUE: Departmental protocol COMPARISON: 12/31/2021 FINDINGS: The lungs are clear. The pleural spaces are negative. The cardiac silhouette is not enlarged. The remainder of the mediastinal silhouette is unremarkable. The skeletal structures and soft tissues are negative for acute findings. IMPRESSION: NO ACUTE PROCESS.
[2022-01-14] MEDS ORDERED: HYDROcodone/APAP 10-325MG 1 EACH TAB PO ONE (21:31)
[2022-01-14 21:51] VITALS: BP 132/79; PULSE 79; TEMP 98.3
== END 2022-01-14 21:51 | disposition home or self-care (01) ==
LOC: EC 19:05
DX: R20.2 Paresthesia of skin (principal); J44.9 Chronic obstructive pulmonary disease, unspecified; K21.9 Gastro-esophageal reflux disease without esophagitis; I10 Essential (primary) hypertension; E07.9 Disorder of thyroid, unspecified; F41.9 Anxiety disorder, unspecified; F32.A Depression, unspecified; Z88.5 Allergy status to narcotic agent; Z88.6 Allergy status to analgesic agent; Z88.4 Allergy status to anesthetic agent; Z91.018 Allergy to other foods; Z91.030 Bee allergy status; Z88.2 Allergy status to sulfonamides; Z91.041 Radiographic dye allergy status; Z88.8 Allergy status to other drugs, medicaments and biological substances; Z79.51 Long term (current) use of inhaled steroids; Z79.890 Hormone replacement therapy; Z79.899 Other long term (current) drug therapy
CPT/HCPCS: 36415; 93005; 80053; 83735; 85025; 71046; 70450; 99285; 96374; J2060

== ENCOUNTER 2022-02-19 11:05 | Emergency (ER) | payer MEDICARE, OTHER ==
[2022-02-19 11:22] VITALS: RESP 16
[2022-02-19] MEDS ORDERED: DULoxetine HCL 60 MG CAPSULE.DR PO SCH (11:30)
--- NOTE | 2022-02-19 11:30 | ED ---
General Adult HPI - General Chief complaint: Recheck/Abnormal Lab/Rx Stated complaint: AMS Time Seen by Provider: 02/19/22 11:07 Source: patient, EMS, RN notes reviewed Mode of arrival: EMS Limitations: no limitations - History of Present Illness Initial comments: Patient is a 71-year-old female presents to the emergency room with complaints of withdrawal symptoms from her duloxetine. She states that she ran out of her medication 3 days ago due to issues with establishing with a new primary care provider. She states that she has an appointment with of new primary care provider on the of this month which was rescheduled due to insurance issues. She previously saw Dr. Mariscal. She reports that she withdrew from Wellbutrin last month but had remaining prescriptions for her duloxetine 60 mg twice a day which she had been taking up until 3 days ago. She also reports increase in heartburn symptoms which she is unsure if this correlates to her withdrawal symptoms from her duloxetine which includes increase in generalized pain, nausea, and irritability. She states that due to her increase in her prednisone this morning she did not take her blood pressure medication as prescribed which she is running low on however does still have available to her. She denies any suicidal thoughts, hallucinations or delusions but does report intent to harm her neighbor without specific plan. She is complaining of an increase in chronic urinary incontinence without any dysuria or hematuria. In addition to her depression, anxiety and PTSD she has a past medical history significant for COPD, asthma, hypertension, breast cancer, thyroid disease, GERD and degenerative disc disease. - Related Data Home Medications Medication Instructions Recorded Confirmed Pantoprazole Sodium [Protonix] 40 mg PO BID 04/09/16 06/17/21 EPINEPHrine [Epipen 2-River] 0.3 mg IM ONCE PRN 11/16/16 06/17/21 Nitroglycerin Sl Tabs [Nitrostat] 0.4 mg SUBLINGUAL Q5M PRN 11/16/16 06/17/21 Sucralfate [Carafate] 1 gm PO TID 12/13/16 06/17/21 Losartan Potassium 50 mg PO DAILY 09/16/17 06/17/21 diazePAM [Valium] 5 mg PO DAILY PRN 09/16/17 06/17/21 DULoxetine HCL [Cymbalta] 120 mg PO DAILY 04/24/18 06/17/21 Levothyroxine Sodium [Synthroid] 88 mcg PO DAILY 04/24/18 06/17/21 buPROPion HCL [Wellbutrin SR] 200 mg PO BID 08/11/18 06/17/21 hydroCHLOROthiazide 12.5 mg PO DAILY 09/12/18 06/17/21 Lidocaine 5% Oint [Xylocaine 5% 1 applic TOPICAL BID PRN 01/14/19 06/17/21 Oint] Albuterol Sulfate [Proair Hfa] 1 - 2 puff INHALATION RT-Q4H PRN 03/21/19 06/17/21 Fluticasone Nasal [place] [Flonase 1 spray EA NOSTRIL BID PRN 03/21/19 06/17/21 Nasal [place]] diphenhydrAMINE [Benadryl] 50 mg PO HS 03/21/19 06/17/21 Ondansetron [Zofran] 4 mg PO Q8H PRN 11/08/19 06/17/21 Ascorbic Acid [Vitamin C] 1,000 mg PO DAILY 12/12/20 06/17/21 Fexofenadine HCl [[place] Allergy] 180 mg PO DAILY PRN 12/12/20 06/17/21 valACYclovir HCL [Valtrex] 1,000 mg PO BID 12/12/20 06/17/21 Biotin Gummy 1 tab PO DAILY 06/17/21 06/17/21 HYDROcodone/APAP 7.5-325MG [[place] 1 tab PO BID 06/17/21 06/17/21 7.5-325] Metoprolol Tartrate [Lopressor] 25 mg PO BID 06/17/21 06/17/21 Multivitamin [Multivitamins Adult 1 tab PO DAILY 06/17/21 06/17/21 Gummies] Promethaz-Cod 6.25-10 mg/5 ml 5 ml PO Q6H PRN 06/17/21 06/17/21 [Phenergan with Codeine] Vitamin E 400 unit PO DAILY 06/17/21 06/17/21 Previous Rx's Medication Instructions Recorded Cephalexin [Keflex] 500 mg PO QID 10 Days #40 cap 06/17/21 Nitrofurantoin Monohyd/M-Cryst 100 mg PO Q12HR 5 Days #10 cap 10/18/21 [Macrobid] cefUROXime axetiL [Ceftin] 500 mg PO BID 10 Days #20 tab 12/22/21 diazePAM 10 mg PO Q8H PRN 3 Days #9 tab 12/22/21 diphenhydrAMINE [Benadryl] 50 mg PO HS #30 capsule 12/22/21 buPROPion HCL [Wellbutrin SR] 200 mg PO BID #28 tab 01/14/22 DULoxetine HCL [Cymbalta] 120 mg PO DAILY 30 Days #30 cap 02/19/22 Ondansetron Odt [Zofran Odt] 4 mg PO Q8HR PRN 7 Days #21 tab 02/19/22 Allergies Allergy/AdvReac Type Severity Reaction Status Date / Time buprenorphine [From Butrans] Allergy pain Verified 01/14/22 19:17 carisoprodol [From Soma] Allergy Unknown Verified 01/14/22 19:17 chlorpromazine Allergy Unknown Verified 01/14/22 19:17 [From Thorazine] ciprofloxacin [From Cipro] Allergy Unknown Verified 01/14/22 19:17 clonazepam [From Klonopin] Allergy Unknown Verified 01/14/22 19:17 cyclobenzaprine Allergy Unknown Verified 01/14/22 19:17 [From Flexeril] metoclopramide [From Reglan] Allergy Anaphylaxis Verified 01/14/22 19:17 metronidazole [From Flagyl] Allergy Anaphylaxis Verified 01/14/22 19:17 morphine Allergy Rash/Hives Verified 01/14/22 19:17 naproxen Allergy Unknown Verified 01/14/22 19:17 papaya Allergy Rash/Hives Verified 01/14/22 19:17 prednisone Allergy Anaphylaxis Verified 01/14/22 19:17 prochlorperazine Allergy Anaphylaxis Verified 01/14/22 19:17 [From Compazine] red dye Allergy Rash/Hives Verified 01/14/22 19:17 venom-honey bee Allergy Anaphylaxis Verified 01/14/22 19:17 [bee venom (honey bee)] ketorolac [From Toradol] AdvReac Severe Abdominal Verified 01/14/22 19:17 Pain baclofen AdvReac Twitching Verified 01/14/22 19:17 buspirone [From BuSpar] AdvReac Confusion Verified 01/14/22 19:17 ibuprofen [From Motrin] AdvReac Abdominal Verified 01/14/22 19:17 Pain meperidine [From Demerol] AdvReac Rapid Verified 01/14/22 19:17 Heart Rate Phenothiazines AdvReac Altered Verified 01/14/22 19:17 Mental Status sulfamethoxazole AdvReac Rash/Hives Verified 01/14/22 19:17 [From Bactrim] trimethoprim [From Bactrim] AdvReac Rash/Hives Verified 01/14/22 19:17 Review of Systems ROS Statement: Those systems with pertinent positive or pertinent negative responses have been documented in the HPI. ROS Other: All systems not noted in ROS Statement are negative. Past Medical History Past Medical History: Asthma, Cancer, COPD, GERD/Reflux, Hypertension, Pneumonia, Thyroid Disorder Additional Past Medical History / Comment(s): shingles, RT BREAST LUMPECTOMY/CANCER, THYROID REMOVE, CATARACTS, BRONCHITIS, MONO TEENAGER, LITE CASE OF POLIO AGE 8, MELANOMA SKIN CANCER REMOVED, r shoulder rotator tear History of Any Multi-Drug Resistant Organisms: MRSA Date of last positivie culture/infection: 2009 MDRO Source:: LEFT ULNAR BONE, kidneys Past Surgical History: Appendectomy, Back Surgery, Cholecystectomy, Orthopedic Surgery Additional Past Surgical History / Comment(s): EYE SX FOR LAZY EYE, SX ON TEAR DUCTS, BACK SURGERY MICRO DISC, LT WRIST BROKEN 7 GALLO HAD 13 Surgeries TO CORRECT, left shoulder and humorous shattered from a fall with 2 surgeries to correct, LAPROSCOPIES- BENIGN TUNOR SIZE OF GRAPFRUIT REMOVED AGE 11 OR 1, RT BREAST BX/LUMPECTOMY,LT PINK FINGER SX TO STRAIGHTEN.MELANOMA SKIN CANCER REMOVED. Past Anesthesia/Blood Transfusion Reactions: No Reported Reaction Additional Past Anesthesia/Blood Transfusion Reaction / Comment(s): CLAUSTERPHOBIA Past Psychological History: Anxiety, Depression, PTSD Smoking Status: Never smoker Past Alcohol Use History: Occasional Past Drug Use History: None Reported - Past Family History Mother Family Medical History: Asthma Additional Family Medical History / Comment(s): ETOH/SMOKER Father Family Medical History: Cancer, Liver Disease Additional Family Medical History / Comment(s): ESOPHOGEAL CANCER, ETOH General Exam Limitations: no limitations General appearance: alert, in no apparent distress Head exam: Present: atraumatic, normocephalic, normal inspection Eye exam: Present: normal appearance, PERRL, EOMI. Absent: scleral icterus, conjunctival injection, periorbital swelling ENT exam: Present: normal exam, mucous membranes moist Neck exam: Present: normal inspection. Absent: tenderness, meningismus, lymphadenopathy Respiratory exam: Present: normal lung sounds bilaterally. Absent: respiratory distress, wheezes, rales, rhonchi, stridor Cardiovascular Exam: Present: regular rate, normal rhythm, normal heart sounds. Absent: systolic murmur, diastolic murmur, rubs, gallop, clicks GI/Abdominal exam: Present: soft, normal bowel sounds. Absent: distended, tenderness, guarding, rebound, rigid Rectal exam: Present: deferred Extremities exam: Present: normal inspection. Absent: pedal edema, joint swelling Back exam: Present: normal inspection Neurological exam: Present: alert, oriented X3, CN II-XII intact Psychiatric exam: Present: other (thoughts of harming others) Expanded Focused psych exam: Present: flight of ideas Skin exam: Present: warm, dry, intact, normal color. Absent: rash Course Vital Signs 02/19/22 11:09 Temperature 97.3 F L Pulse Rate 96 Respiratory 16 Rate Blood Pressure 152/112 O2 Sat by Pulse 100 Oximetry Medical Decision Making - Medical Decision Making 71-year-old female presenting to the emergency room with withdrawal symptoms from her chronic medication of duloxetine which she is on for anxiety, depression, PTSD along with generalized pain. No suicidal thoughts hallucinations or delusions however does report intent to harm her neighbor. Reporting increased urinary incontinence. Blood pressure elevated but without blood pressure medication this morning. No indication for diagnostic imaging. Will check urinalysis given increased urinary incontinence however no need to delay an EPS evaluation. Will clear for a medical standpoint for evaluation by EPS. Urinalysis shows trace leukocytes and some ketones. No large leukocyte Estrace or bacteria. No indication for antibiotic treatment. EPS cleared for discharge home. Will refill duloxetine along with Zofran to utilize as needed for nausea. Encouraged follow-up with her primary care provider and continuation of her home medications. Case discussed with Dr. Rosenthal Disposition Clinical Impression: Encounter for medication refill Disposition: HOME SELF-CARE Condition: Stable Instructions (If sedation given, give patient instructions): Depression (ED) Additional Instructions: Please follow-up with your primary care provider. Please continue to take your medications as prescribed. Please return to the Emergency Department if symptoms worsen or any other concerns. Prescriptions: DULoxetine HCL [Cymbalta] 120 mg PO DAILY 30 Days #30 cap Ondansetron Odt [Zofran Odt] 4 mg PO Q8HR PRN 7 Days #21 tab PRN Reason: Nausea Is patient prescribed a controlled substance at d/c from ED?: No Referrals: Matty Brown MD [Primary Care Provider] - 1-2 days Time of Disposition: 13:15
[2022-02-19 13:27] VITALS: BP 124/82; PULSE 62; TEMP 97.8
== END 2022-02-19 13:27 | disposition home or self-care (01) ==
LOC: EC 11:05
DX: R45.850 Homicidal ideations (principal); Z76.0 Encounter for issue of repeat prescription; J44.9 Chronic obstructive pulmonary disease, unspecified; K21.9 Gastro-esophageal reflux disease without esophagitis; I10 Essential (primary) hypertension; E89.0 Postprocedural hypothyroidism; Z88.2 Allergy status to sulfonamides; Z88.1 Allergy status to other antibiotic agents; Z88.8 Allergy status to other drugs, medicaments and biological substances; Z91.030 Bee allergy status; Z91.018 Allergy to other foods; Z79.890 Hormone replacement therapy; Z79.899 Other long term (current) drug therapy
CPT/HCPCS: 82075; 99284

== ENCOUNTER 2022-03-06 13:28 | Emergency (ER) | payer MEDICARE, OTHER ==
[2022-03-06] MEDS ORDERED: HYDROmorphone 0.5 MG/0.5 ML SYRINGE IM STA (14:15)
[2022-03-06] MEDS ORDERED: ONDANSETRON 4 MG/2 ML VIAL IM STA (14:15)
--- NOTE | 2022-03-06 14:26 | ED ---
Lower Extremity Injury HPI - General Chief Complaint: Extremity Injury, Lower Stated Complaint: lt knee pain Time Seen by Provider: 03/06/22 13:34 Source: patient, RN notes reviewed Mode of arrival: ambulatory Limitations: no limitations - History of Present Illness Initial Comments: Patient is a 71-year-old female presenting to the emergency room with complaints of acute on chronic left knee pain that has been ongoing for approximately 1 week. She reports following up with her orthopedist who advised her yesterday pain persisted to come to the emergency room. She follows with Dr. Lyles for pain management and reports that her regular pain medication was not at her pharmacy as it was supposed to be. She denies any new trauma or fall s. She has some mild swelling in her knee but has full range of motion including the ability to go up and down stairs earlier today. She denies any numbness or tingling in her feet that is not new for her as she has chronic neuropathy. She denies any fevers or chills. In addition to her neuropathic pain and osteoarthritis she has a past medical history significant for asthma, COPD, breast cancer, hypothyroidism secondary to thyroidectomy, hypertension, GERD, anxiety, depression and PTSD. - Related Data Home Medications Medication Instructions Recorded Confirmed Pantoprazole Sodium [Protonix] 40 mg PO BID 04/09/16 02/19/22 EPINEPHrine [Epipen 2-River] 0.3 mg IM ONCE PRN 11/16/16 02/19/22 Nitroglycerin Sl Tabs [Nitrostat] 0.4 mg SUBLINGUAL Q5M PRN 11/16/16 02/19/22 Sucralfate [Carafate] 1 gm PO ACHS 12/13/16 02/19/22 Losartan Potassium 50 mg PO DAILY 09/16/17 02/19/22 diazePAM [Valium] 5 mg PO DAILY PRN 09/16/17 02/19/22 DULoxetine HCL [Cymbalta] 120 mg PO DAILY 04/24/18 02/19/22 Levothyroxine Sodium [Synthroid] 88 mcg PO DAILY 04/24/18 02/19/22 buPROPion HCL [Wellbutrin SR] 200 mg PO BID 08/11/18 02/19/22 hydroCHLOROthiazide 12.5 mg PO DAILY 09/12/18 02/19/22 Lidocaine 5% Oint [Xylocaine 5% 1 applic TOPICAL BID PRN 01/14/19 02/19/22 Oint] Albuterol Sulfate [Proair Hfa] 1 - 2 puff INHALATION RT-Q4H PRN 03/21/19 02/19/22 diphenhydrAMINE [Benadryl] 50 mg PO HS 03/21/19 02/19/22 Ascorbic Acid [Vitamin C] 1,000 mg PO DAILY 12/12/20 02/19/22 Fexofenadine HCl [[place] Allergy] 180 mg PO BID 12/12/20 02/19/22 valACYclovir HCL [Valtrex] 1,000 mg PO BID 12/12/20 02/19/22 Biotin Gummy 1 tab PO DAILY 06/17/21 02/19/22 HYDROcodone/APAP 7.5-325MG [[place] 1 tab PO BID 06/17/21 02/19/22 7.5-325] Metoprolol Tartrate [Lopressor] 25 mg PO BID 06/17/21 02/19/22 Multivitamin [Multivitamins Adult 1 tab PO DAILY 06/17/21 02/19/22 Gummies] Vitamin E 400 unit PO DAILY 06/17/21 02/19/22 tiZANidine [Zanaflex] 4 mg PO DAILY PRN 02/19/22 02/19/22 Previous Rx's Medication Instructions Recorded Cephalexin [Keflex] 500 mg PO QID 10 Days #40 cap 06/17/21 cefUROXime axetiL [Ceftin] 500 mg PO BID 10 Days #20 tab 12/22/21 DULoxetine HCL [Cymbalta] 120 mg PO DAILY 30 Days #30 cap 02/19/22 Ondansetron Odt [Zofran Odt] 4 mg PO Q8HR PRN 7 Days #21 tab 02/19/22 Allergies Allergy/AdvReac Type Severity Reaction Status Date / Time buprenorphine [From Butrans] Allergy pain Verified 03/06/22 13:32 carisoprodol [From Soma] Allergy Unknown Verified 03/06/22 13:32 chlorpromazine Allergy Unknown Verified 03/06/22 13:32 [From Thorazine] ciprofloxacin [From Cipro] Allergy Unknown Verified 03/06/22 13:32 clonazepam [From Klonopin] Allergy Unknown Verified 03/06/22 13:32 cyclobenzaprine Allergy Unknown Verified 03/06/22 13:32 [From Flexeril] metoclopramide [From Reglan] Allergy Anaphylaxis Verified 03/06/22 13:32 metronidazole [From Flagyl] Allergy Anaphylaxis Verified 03/06/22 13:32 morphine Allergy Rash/Hives Verified 03/06/22 13:32 naproxen Allergy Unknown Verified 03/06/22 13:32 papaya Allergy Rash/Hives Verified 03/06/22 13:32 prednisone Allergy Anaphylaxis Verified 03/06/22 13:32 prochlorperazine Allergy Anaphylaxis Verified 03/06/22 13:32 [From Compazine] red dye Allergy Rash/Hives Verified 03/06/22 13:32 venom-honey bee Allergy Anaphylaxis Verified 03/06/22 13:32 [bee venom (honey bee)] ketorolac [From Toradol] AdvReac Severe Abdominal Verified 03/06/22 13:32 Pain baclofen AdvReac Twitching Verified 03/06/22 13:32 buspirone [From BuSpar] AdvReac Confusion Verified 03/06/22 13:32 ibuprofen [From Motrin] AdvReac Abdominal Verified 03/06/22 13:32 Pain meperidine [From Demerol] AdvReac Rapid Verified 03/06/22 13:32 Heart Rate Phenothiazines AdvReac Altered Verified 03/06/22 13:32 Mental Status sulfamethoxazole AdvReac Rash/Hives Verified 03/06/22 13:32 [From Bactrim] trimethoprim [From Bactrim] AdvReac Rash/Hives Verified 03/06/22 13:32 Review of Systems ROS Statement: Those systems with pertinent positive or pertinent negative responses have been documented in the HPI. ROS Other: All systems not noted in ROS Statement are negative. Past Medical History Past Medical History: Asthma, Cancer, COPD, GERD/Reflux, Hypertension, Pneumonia, Thyroid Disorder Additional Past Medical History / Comment(s): shingles, RT BREAST LUMPECTOMY/CANCER, THYROID REMOVE, CATARACTS, BRONCHITIS, MONO TEENAGER, LITE CASE OF POLIO AGE 8, MELANOMA SKIN CANCER REMOVED, r shoulder rotator tear History of Any Multi-Drug Resistant Organisms: MRSA Date of last positivie culture/infection: 2009 MDRO Source:: LEFT ULNAR BONE, kidneys Past Surgical History: Appendectomy, Back Surgery, Cholecystectomy, Orthopedic Surgery Additional Past Surgical History / Comment(s): EYE SX FOR LAZY EYE, SX ON TEAR DUCTS, BACK SURGERY MICRO DISC, LT WRIST BROKEN 7 GALLO HAD 13 Surgeries TO CORRECT, left shoulder and humorous shattered from a fall with 2 surgeries to correct, LAPROSCOPIES- BENIGN TUNOR SIZE OF GRAPFRUIT REMOVED AGE 11 OR 1, RT BREAST BX/LUMPECTOMY,LT PINK FINGER SX TO STRAIGHTEN.MELANOMA SKIN CANCER REMOVED. Past Anesthesia/Blood Transfusion Reactions: No Reported Reaction Additional Past Anesthesia/Blood Transfusion Reaction / Comment(s): CLAUSTERPHOBIA Past Psychological History: Anxiety, Depression, PTSD Smoking Status: Never smoker Past Alcohol Use History: Occasional Past Drug Use History: None Reported - Past Family History Mother Family Medical History: Asthma Additional Family Medical History / Comment(s): ETOH/SMOKER Father Family Medical History: Cancer, Liver Disease Additional Family Medical History / Comment(s): ESOPHOGEAL CANCER, ETOH General Exam Limitations: no limitations General appearance: alert, in no apparent distress Head exam: Present: atraumatic, normocephalic, normal inspection Eye exam: Present: normal appearance, PERRL, EOMI. Absent: scleral icterus, conjunctival injection, periorbital swelling ENT exam: Present: normal exam, mucous membranes moist Neck exam: Present: normal inspection, full ROM Respiratory exam: Present: normal lung sounds bilaterally. Absent: respiratory distress, wheezes, rales, rhonchi, stridor Cardiovascular Exam: Present: regular rate, normal rhythm, normal heart sounds. Absent: systolic murmur, diastolic murmur, rubs, gallop, clicks GI/Abdominal exam: Present: soft, normal bowel sounds. Absent: distended, tenderness, guarding, rebound, rigid Left Knee exam: Present: full ROM, tenderness, effusion, full knee extension. Absent: abrasion, laceration, ecchymosis, deformity, crepitus, dislocation, erythema, pain w/ pronation/supination, posterior draw sign Neurovascular tendon exam: Present: no vascular compromise Gait: observed and limited by pain Back exam: Present: normal inspection Neurological exam: Present: alert, oriented X3, CN II-XII intact Psychiatric exam: Present: normal affect, normal mood Skin exam: Present: warm, dry, intact, normal color. Absent: rash Course Vital Signs 03/06/22 03/06/22 13:29 15:57 Temperature 97.1 F L 97.9 F Pulse Rate 80 60 Respiratory 20 16 Rate Blood Pressure 161/80 167/99 O2 Sat by Pulse 100 99 Oximetry Medical Decision Making - Medical Decision Making 71-year-old female presenting to the emergency room with acute on chronic left knee pain without new trauma following with orthopedic already well and follow with pain management requesting pain medication for her knee and possible CT of the knee. The setting and note no trauma and overall negative knee exam with the exception of generalized tenderness and mild generalized effusion no indication for computed tomography scan, will obtain x-ray of the left knee. Reports nausea secondary to pain as well will give 0.5 mg of Dilaudid IM along with 4 mg of Zofran IM as she reports unable to take NSAIDs due to chronic kidney disease and ALLERGIC to morphine. Pain and nausea improved with IM medications. Patient requesting a refill of her chronic pain medication. Advised patient she needs to follow-up with pain management in regards to refill of her chronic pain medication of hydrocodoneacetaminophen 7.5/325. Will give a Tylenol 3 starter pack to use in the interim. Encouraged range of motion as tolerated avoidance of high impact activities. Will discharge home. Case discussed with Dr. Gonzalez. - Radiology Data Radiology results: report reviewed, image reviewed X-ray 4 view left knee impression osteoarthritis and chondrocalcinosis. There is a knee joint effusion. There is spurring of on the patella. No fracture. Disposition Clinical Impression: Left knee pain Disposition: HOME SELF-CARE Condition: Stable Instructions (If sedation given, give patient instructions): Knee Pain (ED) Additional Instructions: Please utilize Tylenol 3 starter pack as needed for pain do not combine with your regular pain medication prescription once refilled by your pain medication prescriber. Avoid high impact activities. Range of motion as tolerated encouraged. Please return to the Emergency Department if symptoms worsen or any other concerns. Is patient prescribed a controlled substance at d/c from ED?: No Referrals: Matty Brown MD [Primary Care Provider] - 1-2 days Aden Dillard MD [Medical Doctor] - As Soon As Possible Time of Disposition: 15:39
--- NOTE | 2022-03-06 15:17 | XR ---
EXAMINATION TYPE: XR knee 4V LT DATE OF EXAM: 03/06/2022 COMPARISON: NONE HISTORY: Knee pain TECHNIQUE: 4 views FINDINGS: There is narrowing of the medial joint space. There is calcification of the medial and late ral menisci. No fracture seen. There is knee joint effusion. There is spurring on the patella. IMPRESSION: Osteoarthritis and chondrocalcinosis. No fracture.
[2022-03-06] MEDS ORDERED: ACET/COD 300 MG/30 MG STARTER PACK 6 TAB BTL PO STA (15:38)
[2022-03-06 15:59] VITALS: BP 167/99; PULSE 60; RESP 16; TEMP 97.9
== END 2022-03-06 16:19 | disposition home or self-care (01) ==
LOC: EC 13:28
DX: M25.562 Pain in left knee (principal); J44.9 Chronic obstructive pulmonary disease, unspecified; K21.9 Gastro-esophageal reflux disease without esophagitis; I10 Essential (primary) hypertension; E07.9 Disorder of thyroid, unspecified; F41.9 Anxiety disorder, unspecified; F32.A Depression, unspecified; Z91.030 Bee allergy status; Z88.2 Allergy status to sulfonamides; Z91.018 Allergy to other foods; Z79.899 Other long term (current) drug therapy
CPT/HCPCS: 73564; 99283; 96372 ×2; J2405; J1170

== ENCOUNTER 2022-04-03 05:41 | Emergency (ER) | payer MEDICARE, OTHER ==
[2022-04-03 05:47] VITALS: RESP 16
[2022-04-03] MEDS ORDERED: IPRATROPIUM-ALBUTEROL 3 ML NEB INHALATION STA (05:52)
[2022-04-03] MEDS ORDERED: HYDROmorphone 1 MG/ML 1 ML SYRINGE IVP STA (05:52)
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
--- NOTE | 2022-04-03 06:08 | XR ---
EXAMINATION TYPE: XR chest 1V portable DATE OF EXAM: 04/03/2022 COMPARISON: 01/14/2022 HISTORY: Single view TECHNIQUE: FINDINGS: Heart and mediastinum are normal. Lungs are clear. Diaphragm is normal. Bony thorax is intact. There is old left humeral neck fracture. IMPRESSION: No active cardiopulmonary disease. No change.
[2022-04-03] MEDS ORDERED: ONDANSETRON 4 MG/2 ML VIAL IVP STA (06:13)
[2022-04-03 06:33] VITALS: BP 142/62; PULSE 74; TEMP 97.9
== END 2022-04-03 06:46 | disposition home or self-care (01) ==
LOC: EC 05:41
DX: J45.901 Unspecified asthma with (acute) exacerbation (principal); F41.9 Anxiety disorder, unspecified; F32.A Depression, unspecified; J44.9 Chronic obstructive pulmonary disease, unspecified; I10 Essential (primary) hypertension; E07.9 Disorder of thyroid, unspecified; K21.9 Gastro-esophageal reflux disease without esophagitis; Z79.899 Other long term (current) drug therapy; Z88.8 Allergy status to other drugs, medicaments and biological substances; Z88.6 Allergy status to analgesic agent; Z91.018 Allergy to other foods; Z88.9 Allergy status to unspecified drugs, medicaments and biological substances; Z91.041 Radiographic dye allergy status; Z91.030 Bee allergy status; Z88.5 Allergy status to narcotic agent; Z88.2 Allergy status to sulfonamides
CPT/HCPCS: 94640; 71045; 99285; 96374; 96375; J2405; J1170

== ENCOUNTER 2022-04-12 21:53 | Emergency (ER) | payer MEDICARE, OTHER ==
[2022-04-12 22:00] VITALS: TEMP 97
--- NOTE | 2022-04-12 22:45 | XR ---
EXAMINATION TYPE: XR knee 4V LT DATE OF EXAM: 04/12/2022 COMPARISON: 03/06/2022 HISTORY: Knee pain TECHNIQUE: 4 views FINDINGS: There is calcification of the menisci. There is mild spurring of the medial femoral and tib ial condyles. There is no fracture nor dislocation. There are small knee joint effusion. IMPRESSION: There is chondrocalcinosis and small joint effusion and consistent with pseudogout. No fr acture. Mild osteoarthritis. No change.
[2022-04-13] MEDS ORDERED: MORPHINE SULFATE 4 MG/ML SYRINGE IM STA (00:07)
--- NOTE | 2022-04-13 00:15 | ED ---
Lower Extremity Injury HPI - General Chief Complaint: Extremity Injury, Lower Stated Complaint: Left Knee Injury Time Seen by Provider: 04/12/22 23:56 Source: patient, RN notes reviewed Mode of arrival: EMS Limitations: no limitations - History of Present Illness Initial Comments: Patient with a history of arthritis and chronic pain presents with left knee pain was approximately quite some time. Patient states she had the knee drained [address] Dillard patient states that she was carrying groceries up and down stairs today and exacerbated the knee. Patient believes it is swollen again. This patient states she called her orthopedic physician was sent here for pain medications. Patient denying any other symptomology. No fever or chi lls. There was no direct trauma or fall. Patient is able to ambulate. Pain is exacerbated by ambulation, somewhat alleviated by rest. No headache, no fever or chills, no changes in vision or hearing, no sore throat or difficulty with speech, no neck pain, no chest pain or shortness of breath, no abdominal pain, no nausea or vomiting, no changes in urination or bowel movements, no numbness or tingling, no skin rashes or lesions. Past medical, surgical, social, and family history reviewed. - Related Data Home Medications Medication Instructions Recorded Confirmed Pantoprazole Sodium [Protonix] 40 mg PO BID 04/09/16 02/19/22 EPINEPHrine [Epipen 2-River] 0.3 mg IM ONCE PRN 11/16/16 02/19/22 Nitroglycerin Sl Tabs [Nitrostat] 0.4 mg SUBLINGUAL Q5M PRN 11/16/16 02/19/22 Sucralfate [Carafate] 1 gm PO ACHS 12/13/16 02/19/22 Losartan Potassium 50 mg PO DAILY 09/16/17 02/19/22 diazePAM [Valium] 5 mg PO DAILY PRN 09/16/17 02/19/22 DULoxetine HCL [Cymbalta] 120 mg PO DAILY 04/24/18 02/19/22 Levothyroxine Sodium [Synthroid] 88 mcg PO DAILY 04/24/18 02/19/22 buPROPion HCL [Wellbutrin SR] 200 mg PO BID 08/11/18 02/19/22 hydroCHLOROthiazide 12.5 mg PO DAILY 09/12/18 02/19/22 Lidocaine 5% Oint [Xylocaine 5% 1 applic TOPICAL BID PRN 01/14/19 02/19/22 Oint] Albuterol Sulfate [Proair Hfa] 1 - 2 puff INHALATION RT-Q4H PRN 03/21/1902/06 diphenhydrAMINE [Benadryl] 50 mg PO HS 03/21/19 02/19/22 Ascorbic Acid [Vitamin C] 1,000 mg PO DAILY 12/12/20 02/19/22 Fexofenadine HCl [[place]ton Allergy] 180 mg PO BID 12/12/20 02/19/22 valACYclovir HCL [Valtrex] 1,000 mg PO BID 12/12/20 02/19/22 Biotin Gummy 1 tab PO DAILY 06/17/21 02/19/22 HYDROcodone/APAP 7.5-325MG [[place] 1 tab PO BID 06/17/21 02/19/22 7.5-325] Metoprolol Tartrate [Lopressor] 25 mg PO BID 06/17/21 02/19/22 Multivitamin [Multivitamins Adult 1 tab PO DAILY 06/17/21 02/19/22 Gummies] Vitamin E 400 unit PO DAILY 06/17/21 02/19/22 tiZANidine [Zanaflex] 4 mg PO DAILY PRN 02/19/22 02/19/22 Previous Rx's Medication Instructions Recorded Cephalexin [Keflex] 500 mg PO QID 10 Days #40 cap 06/17/21 cefUROXime axetiL [Ceftin] 500 mg PO BID 10 Days #20 tab 12/22/21 DULoxetine HCL [Cymbalta] 120 mg PO DAILY 30 Days #30 cap 02/19/22 Ondansetron Odt [Zofran Odt] 4 mg PO Q8HR PRN 7 Days #21 tab 02/19/22 Allergies Allergy/AdvReac Type Severity Reaction Status Date / Time buprenorphine [From Butrans] Allergy pain Verified 04/12/22 22:00 carisoprodol [From Soma] Allergy Unknown Verified 04/12/22 22:00 chlorpromazine Allergy Unknown Verified 04/12/22 22:00 [From Thorazine] ciprofloxacin [From Cipro] Allergy Unknown Verified 04/12/22 22:00 clonazepam [From Klonopin] Allergy Unknown Verified 04/12/22 22:00 cyclobenzaprine Allergy Unknown Verified 04/12/22 22:00 [From Flexeril] metoclopramide [From Reglan] Allergy Anaphylaxis Verified 04/12/22 22:00 metronidazole [From Flagyl] Allergy Anaphylaxis Verified 04/12/22 22:00 morphine Allergy Rash/Hives Verified 04/12/22 22:00 naproxen Allergy Unknown Verified 04/12/22 22:00 papaya Allergy Rash/Hives Verified 03/06/22 13:32 prednisone Allergy Anaphylaxis Verified 04/12/22 22:00 prochlorperazine Allergy Anaphylaxis Verified 03/06/22 13:32 [From Compazine] red dye Allergy Rash/Hives Verified 04/12/22 22:00 venom-honey bee Allergy Anaphylaxis Verified 04/12/22 22:00 [bee venom (honey bee)] ketorolac [From Toradol] AdvReac Severe Abdominal Verified 04/12/22 22:00 Pain baclofen AdvReac Twitching Verified 04/12/22 22:00 buspirone [From BuSpar] AdvReac Confusion Verified 04/12/22 22:00 ibuprofen [From Motrin] AdvReac Abdominal Verified 04/12/22 22:00 Pain meperidine [From Demerol] AdvReac Rapid Verified 04/12/22 22:00 Heart Rate Phenothiazines AdvReac Altered Verified 04/12/22 22:00 Mental Status sulfamethoxazole AdvReac Rash/Hives Verified 04/12/22 22:00 [From Bactrim] trimethoprim [From Bactrim] AdvReac Rash/Hives Verified 04/12/22 22:00 Review of Systems ROS Statement: Those systems with pertinent positive or pertinent negative responses have been documented in the HPI. ROS Other: All systems not noted in ROS Statement are negative. Past Medical History Past Medical History: Asthma, Cancer, COPD, GERD/Reflux, Hypertension, Pneumonia, Thyroid Disorder Additional Past Medical History / Comment(s): shingles, RT BREAST LUMPECTOMY/CANCER, THYROID REMOVE, CATARACTS, BRONCHITIS, MONO TEENAGER, LITE CASE OF POLIO AGE 8, MELANOMA SKIN CANCER REMOVED, r shoulder rotator tear History of Any Multi-Drug Resistant Organisms: MRSA Date of last positivie culture/infection: 2009 MDRO Source:: LEFT ULNAR BONE, kidneys Past Surgical History: Appendectomy, Back Surgery, Cholecystectomy, Orthopedic Surgery Additional Past Surgical History / Comment(s): EYE SX FOR LAZY EYE, SX ON TEAR DUCTS, BACK SURGERY MICRO DISC, LT WRIST BROKEN 7 GALLO HAD 13 Surgeries TO CORRECT, left shoulder and humorous shattered from a fall with 2 surgeries to correct, LAPROSCOPIES- BENIGN TUNOR SIZE OF GRAPFRUIT REMOVED AGE 11 OR 1, RT BREAST BX/LUMPECTOMY,LT PINK FINGER SX TO STRAIGHTEN.MELANOMA SKIN CANCER REMOVED. Past Anesthesia/Blood Transfusion Reactions: No Reported Reaction Additional Past Anesthesia/Blood Transfusion Reaction / Comment(s): CLAUSTERPHOBIA Past Psychological History: Anxiety, Depression, PTSD Smoking Status: Never smoker Past Alcohol Use History: Occasional Past Drug Use History: None Reported - Past Family History Mother Family Medical History: Asthma Additional Family Medical History / Comment(s): ETOH/SMOKER Father Family Medical History: Cancer, Liver Disease Additional Family Medical History / Comment(s): ESOPHOGEAL CANCER, ETOH General Exam Limitations: no limitations General appearance: alert, in no apparent distress Head exam: Present: atraumatic, normocephalic, normal inspection Eye exam: Present: normal appearance, EOMI Neck exam: Present: normal inspection, full ROM, lymphadenopathy. Absent: tenderness Respiratory exam: Present: normal lung sounds bilaterally. Absent: respiratory distress, wheezes, rales, rhonchi, stridor Cardiovascular Exam: Present: regular rate, normal rhythm, normal heart sounds. Absent: systolic murmur, diastolic murmur, rubs, gallop, clicks GI/Abdominal exam: Present: soft. Absent: tenderness Extremities exam: Present: full ROM, tenderness (Soft tissue tenderness of the left knee adjacent to the patella inferiorly. No erythema. No break in skin integrity. No rash or lesion. Human stable), normal capillary refill, joint swelling (Possible mild effusion noted on the left.), other (Pulses intact, capillary refill normal). Absent: pedal edema, calf tenderness Back exam: Present: normal inspection, full ROM Neurological exam: Present: alert, oriented X3, CN II-XII intact Psychiatric exam: Present: normal affect, normal mood Skin exam: Present: warm, dry, intact, normal color. Absent: rash Course Vital Signs 04/12/22 21:56 Temperature 97 F L Pulse Rate 83 Respiratory 20 Rate Blood Pressure 124/60 O2 Sat by Pulse 100 Oximetry Medical Decision Making - Medical Decision Making No evidence of vascular insult infectious process. Suspect the patient's pain is related to chronic arthritic change. There may be mild effusion although this is not discernible on x-ray or physical examination. Patient has appointment tomorrow with her orthopedic physician. I did agree to give her 1 dose of pain medication here. She has other pain medication at home. She takes [place] 10/325. Plain film x-rays of the left knee interpreted by me reveal arthritic change with no evidence of acute pathology. I did review the radiology report. Patient was told to return to the ER for any signs or symptoms worsen. Told to return immediately if any other problems arise. All questions answered. Jenny tment plan discussed. Patient in agreement Every effort has been made to ensure accuracy of this dictation. However, due to the limitations of electronic medical records and dictation devices, errors in charting still occur. Supervising Dr. Martinez Disposition Clinical Impression: Chronic pain of left knee Disposition: HOME SELF-CARE Condition: Good Instructions (If sedation given, give patient instructions): Knee Pain (ED) Additional Instructions: Follow-up with your regular physician as directed. Return to the ER immediately if any symptoms worsen, new symptoms arise, or any other problems develop. Is patient prescribed a controlled substance at d/c from ED?: No Referrals: Matty Brown MD [Primary Care Provider] - 1-2 days Aden Dillard MD [Medical Doctor] - 1-2 days Time of Disposition: 00:15
[2022-04-13] MEDS ORDERED: HYDROmorphone 1 MG/ML 1 ML SYRINGE IM STA (00:28)
[2022-04-13 00:45] VITALS: BP 128/84; PULSE 87; RESP 15
== END 2022-04-13 00:45 | disposition home or self-care (01) ==
LOC: EC 21:53
DX: M25.562 Pain in left knee (principal); G89.29 Other chronic pain; J44.9 Chronic obstructive pulmonary disease, unspecified; K21.9 Gastro-esophageal reflux disease without esophagitis; E07.9 Disorder of thyroid, unspecified; I10 Essential (primary) hypertension; Z88.2 Allergy status to sulfonamides; Z91.030 Bee allergy status; Z91.018 Allergy to other foods; Z88.6 Allergy status to analgesic agent; Z91.041 Radiographic dye allergy status; Z79.890 Hormone replacement therapy; Z79.899 Other long term (current) drug therapy
CPT/HCPCS: 73564; 99284; 96372; J1170

== ENCOUNTER 2022-08-31 15:48 | Emergency (ER) | payer MEDICARE, OTHER ==
--- NOTE | 2022-08-31 16:14 | ED ---
General Adult HPI - General Chief complaint: Extremity Injury, Lower Stated complaint: left knee pain Time Seen by Provider: 08/31/22 16:00 Source: patient, RN notes reviewed Limitations: no limitations - History of Present Illness Initial comments: Patient is a pleasant 72-year-old female presenting to the emergency Department with left knee pain. Patient states she has had left knee pain for approximately 13 months now. Patient does have surgery scheduled within the month with Dr. Dillard. Patient states she was advised to come to the emergency department for computed tomography scan by Amie physician city carrier assistant associated with Dr. Dillard. Patient does have some pain which is chronic and similar to previous. No fever. No increase in chronic swelling. - Related Data Home Medications Medication Instructions Recorded Confirmed Pantoprazole Sodium [Protonix] 40 mg PO BID 04/09/16 02/19/22 EPINEPHrine [Epipen 2-River] 0.3 mg IM ONCE PRN 11/16/16 02/19/22 Nitroglycerin Sl Tabs [Nitrostat] 0.4 mg SUBLINGUAL Q5M PRN 11/16/16 02/19/22 Sucralfate [Carafate] 1 gm PO ACHS 12/13/16 02/19/22 Losartan Potassium 50 mg PO DAILY 09/16/17 02/19/22 diazePAM [Valium] 5 mg PO DAILY PRN 09/16/17 02/19/22 DULoxetine HCL [Cymbalta] 120 mg PO DAILY 04/24/18 02/19/22 Levothyroxine Sodium [Synthroid] 88 mcg PO DAILY 04/24/18 02/19/22 buPROPion HCL [Wellbutrin SR] 200 mg PO BID 08/11/18 02/19/22 hydroCHLOROthiazide 12.5 mg PO DAILY 09/12/18 02/19/22 Lidocaine 5% Oint [Xylocaine 5% 1 applic TOPICAL BID PRN 01/14/19 02/19/22 Oint] Albuterol Sulfate [Proair Hfa] 1 - 2 puff INHALATION RT-Q4H PRN 03/21/19 02/19/22 diphenhydrAMINE [Benadryl] 50 mg PO HS 03/21/19 02/19/22 Ascorbic Acid [Vitamin C] 1,000 mg PO DAILY 12/12/20 02/19/22 Fexofenadine HCl [[place] Allergy] 180 mg PO BID 12/12/20 02/19/22 valACYclovir HCL [Valtrex] 1,000 mg PO BID 12/12/20 02/19/22 Biotin Gummy 1 tab PO DAILY 06/17/21 02/19/22 HYDROcodone/APAP 7.5-325MG [[place] 1 tab PO BID 06/17/21 02/19/22 7.5-325] Metoprolol Tartrate [Lopressor] 25 mg PO BID 06/17/21 02/19/22 Multivitamin [Multivitamins Adult 1 tab PO DAILY 06/17/21 02/19/22 Gummies] Vitamin E 400 unit PO DAILY 06/17/21 02/19/22 tiZANidine [Zanaflex] 4 mg PO DAILY PRN 02/19/22 02/19/22 Previous Rx's Medication Instructions Recorded Cephalexin [Keflex] 500 mg PO QID 10 Days #40 cap 06/17/21 cefUROXime axetiL [Ceftin] 500 mg PO BID 10 Days #20 tab 12/22/21 DULoxetine HCL [Cymbalta] 120 mg PO DAILY 30 Days #30 cap 02/19/22 Ondansetron Odt [Zofran Odt] 4 mg PO Q8HR PRN 7 Days #21 tab 02/19/22 Cephalexin [Keflex] 500 mg PO Q6HR 5 Days #20 cap 06/25/22 Allergies Allergy/AdvReac Type Severity Reaction Status Date / Time buprenorphine [From Butrans] Allergy pain Verified 07/13/22 17:55 carisoprodol [From Soma] Allergy Unknown Verified 07/13/22 17:55 chlorpromazine Allergy Unknown Verified 07/13/22 17:55 [From Thorazine] ciprofloxacin [From Cipro] Allergy Unknown Verified 07/13/22 17:55 clonazepam [From Klonopin] Allergy Unknown Verified 07/13/22 17:55 cyclobenzaprine Allergy Unknown Verified 07/13/22 17:55 [From Flexeril] metoclopramide [From Reglan] Allergy Anaphylaxis Verified 07/13/22 17:55 metronidazole [From Flagyl] Allergy Anaphylaxis Verified 07/13/22 17:55 morphine Allergy Rash/Hives Verified 07/13/22 17:55 naproxen Allergy Unknown Verified 07/13/22 17:55 papaya Allergy Rash/Hives Verified 07/13/22 17:55 prednisone Allergy Anaphylaxis Verified 07/13/22 17:55 prochlorperazine Allergy Anaphylaxis Verified 07/13/22 17:55 [From Compazine] red dye Allergy Rash/Hives Verified 07/13/22 17:55 venom-honey bee Allergy Anaphylaxis Verified 07/13/22 17:55 [bee venom (honey bee)] ketorolac [From Toradol] AdvReac Severe Abdominal Verified 07/13/22 17:55 Pain baclofen AdvReac Twitching Verified 07/13/22 17:55 buspirone [From BuSpar] AdvReac Confusion Verified 07/13/22 17:55 ibuprofen [From Motrin] AdvReac Abdominal Verified 07/13/22 17:55 Pain meperidine [From Demerol] AdvReac Rapid Verified 07/13/22 17:55 Heart Rate Phenothiazines AdvReac Altered Verified 07/13/22 17:55 Mental Status sulfamethoxazole AdvReac Rash/Hives Verified 07/13/22 17:55 [From Bactrim] trimethoprim [From Bactrim] AdvReac Rash/Hives Verified 07/13/22 17:55 Review of Systems ROS Statement: Those systems with pertinent positive or pertinent negative responses have been documented in the HPI. ROS Other: All systems not noted in ROS Statement are negative. Constitutional: Denies: fever Eyes: Denies: eye pain ENT: Denies: ear pain Respiratory: Denies: cough Cardiovascular: Denies: chest pain Endocrine: Denies: fatigue Gastrointestinal: Denies: abdominal pain Genitourinary: Denies: dysuria Musculoskeletal: Reports: as per HPI, arthralgia Skin: Denies: rash Neurological: Denies: weakness Past Medical History Past Medical History: Asthma, Cancer, COPD, GERD/Reflux, Hypertension, Pneumonia, Thyroid Disorder Additional Past Medical History / Comment(s): shingles, RT BREAST LUMPECTOMY/CANCER, THYROID REMOVE, CATARACTS, BRONCHITIS, MONO TEENAGER, LITE CASE OF POLIO AGE 8, MELANOMA SKIN CANCER REMOVED, r shoulder rotator tear History of Any Multi-Drug Resistant Organisms: MRSA Date of last positivie culture/infection: 2009 MDRO Source:: LEFT ULNAR BONE, kidneys Past Surgical History: Appendectomy, Back Surgery, Cholecystectomy, Orthopedic Surgery Additional Past Surgical History / Comment(s): EYE SX FOR LAZY EYE, SX ON TEAR DUCTS, BACK SURGERY MICRO DISC, LT WRIST BROKEN 9 GALLO HAD 13 Surgeries TO CORRECT, left shoulder and humorous shattered from a fall with 2 surgeries to correct, LAPROSCOPIES- BENIGN TUNOR SIZE OF GRAPFRUIT REMOVED AGE 11 OR 1, RT BREAST BX/LUMPECTOMY,LT PINK FINGER SX TO STRAIGHTEN.MELANOMA SKIN CANCER REMOVED. Past Anesthesia/Blood Transfusion Reactions: No Reported Reaction Additional Past Anesthesia/Blood Transfusion Reaction / Comment(s): CLAUSTERPHOBIA Past Psychological History: Anxiety, Depression, PTSD Smoking Status: Never smoker Past Alcohol Use History: Occasional Past Drug Use History: None Reported - Past Family History Mother Family Medical History: Asthma Additional Family Medical History / Comment(s): ETOH/SMOKER Father Family Medical History: Cancer, Liver Disease Additional Family Medical History / Comment(s): ESOPHOGEAL CANCER, ETOH General Exam Limitations: no limitations General appearance: alert, in no apparent distress Head exam: Present: atraumatic Eye exam: Present: normal appearance Respiratory exam: Present: normal lung sounds bilaterally Cardiovascular Exam: Present: regular rate, normal rhythm Expanded Peripheral pulses: 2+: Posterior Tibialis (R), Posterior Tibialis (L), Dorsalis Pedis (R), Dorsalis Pedis (L) GI/Abdominal exam: Present: soft. Absent: tenderness Extremities exam: Present: other (Left knee with mild tenderness. Distally the extremity is neurovascularly intact.). Absent: joint swelling Neurological exam: Present: alert Psychiatric exam: Present: normal affect, normal mood Skin exam: Present: normal color Course Vital Signs 08/31/22 15:50 Temperature 97.5 F L Pulse Rate 78 Respiratory 18 Rate Blood Pressure 135/75 O2 Sat by Pulse 100 Oximetry Medical Decision Making - Medical Decision Making Was pt. sent in by a medical professional or institution (, PA, CORPORATE FITNESS PROGRAM COORDINATOR, urgent care, hospital, or senior care...) When possible be specific @ -Patient states she was sent from her orthopedic doctor and city carrier assistantAmie Did you speak to anyone other than the patient for history (EMS, parent, family, police, friend...)? What history was obtained from this source @ -No Did you review nursing and triage notes (agree or disagree)? Why? @ -I reviewed and agree with nursing and triage notes Were old charts reviewed (outside hosp., previous admission, EMS record, old EKG, old radiological studies, urgent care reports/EKG's, senior care records)? Report findings @ -No old charts were reviewed Differential Diagnosis (chest pain, altered mental status, abdominal pain women, abdominal pain men, vaginal bleeding, weakness, fever, dyspnea, syncope, headache, dizziness, GI bleed, back pain, seizure, CVA, palpatations, mental health)? @ -not applicable EKG interpreted by me (3pts min.). @ -As above X-rays interpreted by me (1pt min.). @ -None done CT interpreted by me (1pt min.). @ -None done U/S interpreted by me (1pt. min.). @ -Report reviewed What testing was considered but not performed or refused? (CT, X-rays, U/S, labs)? Why? @ -None What meds were considered but not given or refused? Why? @ -None Did you discuss the management of the patient with other professionals (professionals i.e. , PA, CORPORATE FITNESS PROGRAM COORDINATOR, lab, RT, psych nurse, social sciences chair, grass farm laborer, teacher, quality officer, case management director)? Give summary @ -Case was discussed with practitioner Amie who did request ultrasound be done otherwise felt patient could be discharged as she has arty scheduled for surgery. Was smoking cessation discussed for >3mins.? @ -No Was critical care preformed (if so, how long)? @ -No Were there social determinants of health that impacted care today? How? (Homelessness, low income, unemployed, alcoholism, drug addiction, tra nsportation, low edu. Level, literacy, decrease access to med. care, senior care, rehab)? @ -No Was there de-escalation of care discussed even if they declined (Discuss DNR or withdrawal of care, Hospice)? DNR status @ -No What co-morbidities impacted this encounter? (DM, HTN, Smoking, COPD, CAD, Cancer, CVA, ARF, Chemo, Hep., AIDS, mental health diagnosis, sleep apnea, morbid obesity)? @ -None Was patient admitted / discharged? Hospital course, mention meds given and route, prescriptions, significant lab abnormalities, going to OR and other pertinent info. @ -Patient updated on results. Patient states she is supposed to have computed tomography scan done. Patient did have a scheduled as an outpatient however misted. CT department will be notified of patient's discharge and see if they can admit her in for today if not then re- scheduled. Undiagnosed new problem with uncertain prognosis? @ -No Drug Therapy requiring intensive monitoring for toxicity (Heparin, Nitro, Insulin, Cardizem)? @ -No Were any procedures done? @ -No Diagnosis/symptom? @ -Left knee pain Acute, or Chronic, or Acute on Chronic? @ -Acute on chronic Uncomplicated (without systemic symptoms) or Complicated (systemic symptoms)? @ -default Side effects of treatment? @ -No Exacerbation, Progression, or Severe Exacerbation? @ -No Poses a threat to life or bodily function? How? (Chest pain, [place], [place], pneumonia, PE, COPD, DKA, ARF, appy, cholecystitis, CVA, Diverticulitis, Homicidal, Suicidal, threat to staff... and all critical care pts) @ -No Disposition Clinical Impression: Knee pain Disposition: HOME SELF-CARE Condition: Stable Instructions (If sedation given, give patient instructions): Knee Pain (ED) Additional Instructions: Please do follow-up with your orthopedic doctor as well as her primary care physician in the next couple days for recheck. Return for increased pain, swelling, redness, fever, worsening or changing symptoms or other concerns. Is patient prescribed a controlled substance at d/c from ED?: No Referrals: Julio Dailey MD [Primary Care Provider] - 1-2 days Time of Disposition: 17:57
--- NOTE | 2022-08-31 17:34 | US ---
EXAMINATION TYPE: US venous doppler duplex LE LT DATE OF EXAM: 08/31/2022 4:54 PM COMPARISON: 12/21/16 CLINICAL INDICATION: Female, 72 years old with history of pain; Left knee pain. Pt states she is gett ing a total knee replacement in a few weeks SIDE PERFORMED: Left TECHNIQUE: The lower extremity deep venous system is examined utilizing real time linear array sonog tiffany with graded compression, doppler sonography and color-flow sonography. VESSELS IMAGED: Common Femoral Vein Deep Femoral Vein Greater Saphenous Vein * Femoral Vein Popliteal Vein Small Saphenous Vein * Proximal Calf Veins (* superficial vessels) Left Leg: Negative for DVT IMPRESSION: Grayscale, color doppler, spectral doppler imaging performed of the deep veins of the lo wer extremities. There is normal flow, compressibility, vascular waveforms.
[2022-08-31] MEDS ORDERED: HYDROmorphone 1 MG/ML 1 ML SYRINGE IM STA (17:55)
[2022-08-31 18:13] VITALS: BP 147/79; PULSE 74; RESP 16; TEMP 98.7
== END 2022-08-31 18:16 | disposition home or self-care (01) ==
LOC: EC 15:48
DX: M25.562 Pain in left knee (principal); I10 Essential (primary) hypertension; J44.9 Chronic obstructive pulmonary disease, unspecified; K21.9 Gastro-esophageal reflux disease without esophagitis; F32.A Depression, unspecified; F41.9 Anxiety disorder, unspecified; E07.9 Disorder of thyroid, unspecified; Z79.890 Hormone replacement therapy; Z79.899 Other long term (current) drug therapy; Z88.1 Allergy status to other antibiotic agents; Z88.2 Allergy status to sulfonamides; Z88.5 Allergy status to narcotic agent; Z88.6 Allergy status to analgesic agent; Z88.8 Allergy status to other drugs, medicaments and biological substances; Z91.030 Bee allergy status; Z91.041 Radiographic dye allergy status; Z91.018 Allergy to other foods
CPT/HCPCS: 93971; 99284; 96372; J1170

== ENCOUNTER 2022-09-07 15:50 | Emergency (ER) | payer MEDICARE, OTHER ==
[2022-09-07 16:17] VITALS: BP 144/77; PULSE 57; TEMP 97.5
[2022-09-07] MEDS ORDERED: ONDANSETRON ODT 4 MG TAB PO STA (17:09)
[2022-09-07] MEDS ORDERED: HYDROcodone/APAP 5-325MG 1 EACH TAB PO STA (17:11)
[2022-09-07] MEDS ORDERED: PANTOPRAZOLE 40 MG TABLET PO STA (17:11)
--- NOTE | 2022-09-07 17:14 | ED ---
General Adult HPI - General Chief complaint: Nausea/Vomiting/Diarrhea Stated complaint: NAUSEA Time Seen by Provider: 09/07/22 17:01 Source: patient, RN notes reviewed Mode of arrival: ambulatory Limitations: no limitations - History of Present Illness Initial comments: 72-year-old female presents emergency Department with chief complaint nausea. Patient states that she was getting an MRI done at the hospital just before she presented to the emergency department and states that the smell and the Motrin she took prior to her MRI made her nauseous. She states that she gets nauseous frequently. She takes Zofran at home for nausea. She has a history of GERD and takes Protonix at home but states she recently ran out. Denies abdominal pain, fever, dysuria, urinary frequency. Denies chest pain, shortness of breath. States she otherwise feels well. - Related Data Home Medications Medication Instructions Recorded Confirmed Pantoprazole Sodium [Protonix] 40 mg PO BID 04/09/16 02/19/22 EPINEPHrine [Epipen 2-River] 0.3 mg IM ONCE PRN 11/16/16 02/19/22 Nitroglycerin Sl Tabs [Nitrostat] 0.4 mg SUBLINGUAL Q5M PRN 11/16/16 02/19/22 Sucralfate [Carafate] 1 gm PO ACHS 12/13/16 02/19/22 Losartan Potassium 50 mg PO DAILY 09/16/17 02/19/22 diazePAM [Valium] 5 mg PO DAILY PRN 09/16/17 02/19/22 DULoxetine HCL [Cymbalta] 120 mg PO DAILY 04/24/18 02/19/22 Levothyroxine Sodium [Synthroid] 88 mcg PO DAILY 04/24/18 02/19/22 buPROPion HCL [Wellbutrin SR] 200 mg PO BID 08/11/18 02/19/22 hydroCHLOROthiazide 12.5 mg PO DAILY 09/12/18 02/19/22 Lidocaine 5% Oint [Xylocaine 5% 1 applic TOPICAL BID PRN 01/14/19 02/19/22 Oint] Albuterol Sulfate [Proair Hfa] 1 - 2 puff INHALATION RT-Q4H PRN 03/21/19 02/19/22 diphenhydrAMINE [Benadryl] 50 mg PO HS 03/21/19 02/19/22 Ascorbic Acid [Vitamin C] 1,000 mg PO DAILY 12/12/20 02/19/22 Fexofenadine HCl [Payton Allergy] 180 mg PO BID 12/12/20 02/19/22 valACYclovir HCL [Valtrex] 1,000 mg PO BID 12/12/20 02/19/22 Biotin Gummy 1 tab PO DAILY 06/17/21 02/19/22 HYDROcodone/APAP 7.5-325MG [Springer 1 tab PO BID 06/17/21 02/19/22 7.5-325] Metoprolol Tartrate [Lopressor] 25 mg PO BID 06/17/21 02/19/22 Multivitamin [Multivitamins Adult 1 tab PO DAILY 06/17/21 02/19/22 Gummies] Vitamin E 400 unit PO DAILY 06/17/21 02/19/22 tiZANidine [Zanaflex] 4 mg PO DAILY PRN 02/19/22 02/19/22 Previous Rx's Medication Instructions Recorded Cephalexin [Keflex] 500 mg PO QID 10 Days #40 cap 06/17/21 cefUROXime axetiL [Ceftin] 500 mg PO BID 10 Days #20 tab 12/22/21 DULoxetine HCL [Cymbalta] 120 mg PO DAILY 30 Days #30 cap 02/19/22 Ondansetron Odt [Zofran Odt] 4 mg PO Q8HR PRN 7 Days #21 tab 02/19/22 Cephalexin [Keflex] 500 mg PO Q6HR 5 Days #20 cap 06/25/22 Ondansetron Odt [Zofran Odt] 4 mg PO Q8HR PRN #10 tab 09/07/22 Allergies Allergy/AdvReac Type Severity Reaction Status Date / Time buprenorphine [From Butrans] Allergy pain Verified 09/07/22 16:17 carisoprodol [From Soma] Allergy Unknown Verified 09/07/22 16:17 chlorpromazine Allergy Unknown Verified 09/07/22 16:17 [From Thorazine] ciprofloxacin [From Cipro] Allergy Unknown Verified 09/07/22 16:17 clonazepam [From Klonopin] Allergy Unknown Verified 09/07/22 16:17 cyclobenzaprine Allergy Unknown Verified 09/07/22 16:17 [From Flexeril] metoclopramide [From Reglan] Allergy Anaphylaxis Verified 09/07/22 16:17 metronidazole [From Flagyl] Allergy Anaphylaxis Verified 09/07/22 16:17 morphine Allergy Rash/Hives Verified 09/07/22 16:17 naproxen Allergy Unknown Verified 09/07/22 16:17 papaya Allergy Rash/Hives Verified 09/07/22 16:17 prednisone Allergy Anaphylaxis Verified 09/07/22 16:17 prochlorperazine Allergy Anaphylaxis Verified 09/07/22 16:17 [From Compazine] red dye Allergy Rash/Hives Verified 09/07/22 16:17 venom-honey bee Allergy Anaphylaxis Verified 09/07/22 16:17 [bee venom (honey bee)] ketorolac [From Toradol] AdvReac Severe Abdominal Verified 09/07/22 16:17 Pain baclofen AdvReac Twitching Verified 09/07/22 16:17 buspirone [From BuSpar] AdvReac Confusion Verified 09/07/22 16:17 ibuprofen [From Motrin] AdvReac Abdominal Verified 09/07/22 16:17 Pain meperidine [From Demerol] AdvReac Rapid Verified 09/07/22 16:17 Heart Rate Phenothiazines AdvReac Altered Verified 09/07/22 16:17 Mental Status sulfamethoxazole AdvReac Rash/Hives Verified 09/07/22 16:17 [From Bactrim] trimethoprim [From Bactrim] AdvReac Rash/Hives Verified 09/07/22 16:17 Review of Systems ROS Statement: Those systems with pertinent positive or pertinent negative responses have been documented in the HPI. ROS Other: All systems not noted in ROS Statement are negative. Past Medical History Past Medical History: Asthma, Cancer, COPD, GERD/Reflux, Hypertension, Pneumonia, Thyroid Disorder Additional Past Medical History / Comment(s): shingles, RT BREAST LUMPECTOMY/CANCER, THYROID REMOVE, CATARACTS, BRONCHITIS, MONO TEENAGER, LITE CASE OF POLIO AGE 8, MELANOMA SKIN CANCER REMOVED, r shoulder rotator tear History of Any Multi-Drug Resistant Organisms: MRSA Date of last positivie culture/infection: 2009 MDRO Source:: LEFT ULNAR BONE, kidneys Past Surgical History: Appendectomy, Back Surgery, Cholecystectomy, Orthopedic Surgery Additional Past Surgical History / Comment(s): EYE SX FOR LAZY EYE, SX ON TEAR DUCTS, BACK SURGERY MICRO DISC, LT WRIST BROKEN 9 GALLO HAD 13 Surgeries TO CORRECT, left shoulder and humorous shattered from a fall with 2 surgeries to correct, LAPROSCOPIES- BENIGN TUNOR SIZE OF GRAPFRUIT REMOVED AGE 11 OR 1, RT BREAST BX/LUMPECTOMY,LT PINK FINGER SX TO STRAIGHTEN.MELANOMA SKIN CANCER REMOVED. Past Anesthesia/Blood Transfusion Reactions: No Reported Reaction Additional Past Anesthesia/Blood Transfusion Reaction / Comment(s): CLAUSTERPHOBIA Past Psychological History: Anxiety, Depression, PTSD Smoking Status: Never smoker Past Alcohol Use History: Occasional Past Drug Use History: None Reported - Past Family History Mother Family Medical History: Asthma Additional Family Medical History / Comment(s): ETOH/SMOKER Father Family Medical History: Cancer, Liver Disease Additional Family Medical History / Comment(s): ESOPHOGEAL CANCER, ETOH General Exam Limitations: no limitations General appearance: alert, in no apparent distress Head exam: Present: atraumatic, normocephalic, normal inspection Eye exam: Present: normal appearance ENT exam: Present: normal exam Neck exam: Present: normal inspection. Absent: tenderness, meningismus, lymphadenopathy Respiratory exam: Present: normal lung sounds bilaterally. Absent: respiratory distress, wheezes, rales, rhonchi, stridor Cardiovascular Exam: Present: regular rate, normal rhythm, normal heart sounds. Absent: systolic murmur, diastolic murmur, rubs, gallop, clicks GI/Abdominal exam: Present: soft, normal bowel sounds. Absent: distended, tenderness, guarding, rebound, rigid Neurological exam: Present: alert, oriented X3 Psychiatric exam: Present: normal affect, normal mood Skin exam: Present: warm, dry, intact, normal color. Absent: rash Course Vital Signs 09/07/22 09/07/22 16:15 18:26 Temperature 97.5 F L Pulse Rate 57 L Respiratory 20 18 Rate Blood Pressure 144/77 O2 Sat by Pulse 100 Oximetry Medical Decision Making - Medical Decision Making Was pt. sent in by a medical professional or institution (, PA, GENERAL SERVICE TECHNICIAN, urgent care, hospital, or intermediate...) When possible be specific @ -[No] Did you speak to anyone other than the patient for history (EMS, parent, family, police, friend...)? What history was obtained from this source @ -[No] Did you review nursing and triage notes (agree or disagree)? Why? @ -[I reviewed and agree with nursing and triage notes] Were old charts reviewed (outside hosp., previous admission, EMS record, old EKG, old radiological studies, urgent care reports/EKG's, intermediate records)? Report findings @ -[No old charts were reviewed] Differential Diagnosis (chest pain, altered mental status, abdominal pain women, abdominal pain men, vaginal bleeding, weakness, fever, dyspnea, syncope, headache, dizziness, GI bleed, back pain, seizure, CVA, palpatations, mental health, musculoskeletal)? @ -Nausea EKG interpreted by me (3pts min.). @ -None X-rays interpreted by me (1pt min.). @ -[None done] CT interpreted by me (1pt min.). @ -[None done] U/S interpreted by me (1pt. min.). @ -[None done] What testing was considered but not performed or refused? (CT, X-rays, U/S, labs)? Why? @ -[Basic labs were considered but considering patient's history of chronic nausea and lack of other symptoms they were not performed] What meds were considered but not given or refused? Why? @ -[None] Did you discuss the management of the patient with other professionals (professionals i.e. , PA, GENERAL SERVICE TECHNICIAN, lab, RT, psych nurse, licensed social worker, diplomatic officer, teacher, electoral officer, correctional case records supervisor)? Give summary @ -[No] Was smoking cessation discussed for >3mins.? @ -[No] Was critical care preformed (if so, how long)? @ -[No] Were there social determinants of health that impacted care today? How? (Homelessness, low income, unemployed, alcoholism, drug addiction, transportation, low edu. Level, literacy, decrease access to med. care, shelter, rehab)? @ -[No] Was there de-escalation of care discussed even if they declined (Discuss DNR or withdrawal of care, Hospice)? DNR status @ -[No] What co-morbidities impacted this encounter? (DM, HTN, Smoking, COPD, CAD, Cancer, CVA, ARF, Chemo, Hep., AIDS, mental health diagnosis, sleep apnea, morbid obesity)? @ -[None] Was patient admitted / discharged? Hospital course, mention meds given and route, prescriptions, significant lab abnormalities, going to OR and other pertinent info. @ -[Discharged. Patient presented to emergency department with chief complaint of nausea patient has chronic nausea and states that this is typical for her but she had just had an MRI performed and she states that there was an unpleasant smell and she took a Motrin which she feels made her nauseous. patient was given Zofran and Protonix which she states she takes at home but she ran out of recently. Prescription was sent in for Zofran. Return precautions discussed with patient. Patient discharged in stable condition. Case discussed with my attending Dr. Holman.] Undiagnosed new problem with uncertain prognosis? @ -[No] Drug Therapy requiring intensive monitoring for toxicity (Heparin, Nitro, Insulin, Cardizem)? @ -[No] Were any procedures done? @ -[No] Diagnosis/symptom? @ -[nausea] Acute, or Chronic, or Acute on Chronic? @ -[chronic] Uncomplicated (without systemic symptoms) or Complicated (systemic symptoms)? @ -uncomplicated Side effects of treatment? @ -[No] Exacerbation, Progression, or Severe Exacerbation? @ -[No] Poses a threat to life or bodily function? How? (Chest pain, [place], [place], pneumonia, PE, COPD, DKA, ARF, appy, cholecystitis, CVA, Diverticulitis, Homicidal, Suicidal, threat to staff... and all critical care pts) @ -[No] Disposition Clinical Impression: Nausea Disposition: HOME SELF-CARE Condition: Stable Instructions (If sedation given, give patient instructions): Acute Nausea and Vomiting (ED) Additional Instructions: Please return to the Emergency Department if symptoms worsen or any other concerns. Prescriptions: Ondansetron Odt [Zofran Odt] 4 mg PO Q8HR PRN #10 tab PRN Reason: Nausea Is patient prescribed a controlled substance at d/c from ED?: No Referrals: Julio Dailey MD [REFERRING] - 1-2 days Time of Disposition: 17:59
[2022-09-07 18:27] VITALS: RESP 18
== END 2022-09-07 18:28 | disposition home or self-care (01) ==
LOC: EC 15:50
DX: R11.0 Nausea (principal); J44.9 Chronic obstructive pulmonary disease, unspecified; K21.9 Gastro-esophageal reflux disease without esophagitis; I10 Essential (primary) hypertension; E07.9 Disorder of thyroid, unspecified; F41.9 Anxiety disorder, unspecified; F32.A Depression, unspecified; Z79.890 Hormone replacement therapy; Z79.899 Other long term (current) drug therapy; Z88.6 Allergy status to analgesic agent; Z88.8 Allergy status to other drugs, medicaments and biological substances; Z88.1 Allergy status to other antibiotic agents; Z88.5 Allergy status to narcotic agent; Z91.030 Bee allergy status; Z88.2 Allergy status to sulfonamides; Z91.041 Radiographic dye allergy status; Z91.018 Allergy to other foods
CPT/HCPCS: 99283

== ENCOUNTER → 2022-09-07 | Outpatient (CLI) | payer MEDICARE, OTHER ==
--- NOTE | 2022-09-07 16:17 | MR ---
EXAMINATION TYPE: MR lumbar spine wo con DATE OF EXAM: 09/07/2022 COMPARISON: Lumbosacral spine radiograph 05/15/2018 HISTORY: Low back pain that radiates down right leg, history of surgery TECHNIQUE: Multiplanar, multisequence images of the lumbar spine were acquired without IV contrast. Lumbar segments are intact. No evidence for acute fracture. No paraspinal masses are identified. Con us medullaris has a normal appearance. Multilevel disc desiccation. T12-L1: Broad-based disc bulge without significant central canal stenosis. The neural foramina are pa tent bilaterally. L1-L2: No herniation, protrusion or disc bulging. No canal stenosis is present. Foramina are patent bilaterally. L2-L3: Broad-based disc bulge with mild effacement of anterior thecal sac. Bilateral facet arthropath y. No significant central canal or neural foraminal stenosis. L3-L4: No herniation, protrusion or disc bulging. No canal stenosis is present. Bilateral facet art hropathy. Foramina are patent bilaterally. L4-L5: Grade 1 anterolisthesis of L4 on L5 with uncovering of the disc. Broad-based disc bulge with m ild effacement of anterior thecal sac. Bilateral facet arthropathy with ligamentum flavum buckling de monstrated resulting in mild central canal stenosis. Mild bilateral neural foraminal stenosis. L5-S1: Broad-based disc bulge without significant effacement of the anterior thecal sac. Bilateral fa cet arthropathy with ligamentum flavum buckling resulting in mild bilateral neural foraminal stenosis . Bilateral T2 hyperintense renal cysts. IMPRESSION: 1. No evidence for disc herniation or significant central canal stenosis. 2. Multilevel degenerative disc disease and facet arthropathy as described above.
== END | disposition home or self-care (01) ==
LOC: RADMRIMAIN 14:47
PROVIDERS: ATTEND Psychiatry & Neurology Neurology
DX: M47.812 Spondylosis without myelopathy or radiculopathy, cervical region (principal); M47.816 Spondylosis without myelopathy or radiculopathy, lumbar region; M17.0 Bilateral primary osteoarthritis of knee; M51.36 Other intervertebral disc degeneration, lumbar region; N28.9 Disorder of kidney and ureter, unspecified; M25.462 Effusion, left knee; M47.22 Other spondylosis with radiculopathy, cervical region; M47.27 Other spondylosis with radiculopathy, lumbosacral region; M51.16 Intervertebral disc disorders with radiculopathy, lumbar region; R51.9 Headache, unspecified
CPT/HCPCS: 72148

== ENCOUNTER → 2022-09-15 | Outpatient (CLI) | payer MEDICARE, OTHER ==
--- NOTE | 2022-09-16 07:46 | CT ---
EXAMINATION TYPE: CT left knee - [facility] Protocol DATE OF EXAM: 09/15/2022 COMPARISON: None HISTORY: Presurgical planning, left knee CT DLP: 670 mGycm Automated exposure control for dose reduction was used. Contrast: None Technique: Axial images to the hip and ankle at 2 mm thick sections. Axial images through the knee 1 mm thick sections. FINDINGS: Left hip: Femoral head articulates the acetabulum. No acute fractures evident. Left knee: Small joint effusion is present. There is medial there is narrowing of the medial compartm ent joint spaces bilaterally. Some increased sclerosis is on the left. There is subchondral cyst kaylyn g the medial aspect lateral tibial plateau. Patellofemoral compartment joint space narrowing and spur ring. Left ankle: No acute fractures. IMPRESSION: Moderately advanced degenerative changes medial compartment left knee. Some narrowing of the medial patellofemoral joint space medially present. 2. CT performed for [facility] presurgical planning. 1.
== END | disposition home or self-care (01) ==
LOC: RADCTMAIN 15:16
PROVIDERS: ATTEND Orthopaedic Surgery
DX: Z01.818 Encounter for other preprocedural examination (principal); M17.12 Unilateral primary osteoarthritis, left knee; M25.462 Effusion, left knee

== ENCOUNTER → 2022-09-20 | Outpatient (CLI) | payer MEDICARE, OTHER ==
[2022-09-20 14:35] LABS: INR 0.9 (<1.2); Partial Thromboplastin Time 22.2 sec (22.0-30.0); Prothrombin Time 9.6 sec (9.0-12.0)
[2022-09-21 01:53] LABS: Appearance,Urine Clear (Clear); Bilirubin,Urine Negative (Negative); Blood,Urine Negative (Negative); Color,Urine Yellow (Yellow); Ketones,Urine Negative (Negative); Nitrite,Urine Negative (Negative); PH, Urine 6.5 (5.0-8.0); Specific Gravity,Urine 1.015 (1.001-1.030); Urobilinogen,Urine 0.2 (0.2,1.0)
[2022-09-21 02:04] LABS: Bacteria,Urine None Seen /HPF (None Seen)
[2022-09-21 02:18] LABS: ALT 27 U/L (8-44); AST 33 U/L (13-35); African American GFR (CKD) 57.3 (60.0-200.0); Albumin 4.4 g/dL (3.8-4.9); Albumin/Globulin Ratio 1.91 (1.60-3.17); Alkaline Phosphatase 123 U/L (41-126); BUN/Creat Ratio 24.55 Ratio (12.00-20.00); Carbon Dioxide 27.4 mmol/L (20.0-27.5); Chloride 104 mmol/L (96-109); Globulin 2.3 g/dL (1.6-3.3); Glucose 84 mg/dL (70-110); Non-African American GFR(CKD) 49.4 (60.0-200.0); Sodium 143 mmol/L (135-145); Total Bilirubin <0.15 mg/dL (0.30-1.20); Total Protein 6.7 g/dL (6.2-8.2)
[2022-09-21 04:25] LABS: HCT 35.9 % (37.2-46.3); HGB 10.6 g/dL (12.0-15.0); MCH 28.3 pg (27.0-32.0); MCHC 29.5 g/dL (32.0-37.0); Mean Platelet Volume 13.8 fL (9.5-12.2); NRBC Per 100 WBC 0 /100 WBCS (0.0-0.0); Platelet Count 292 X 10*3/uL (140-440); RBC 3.74 X 10*6/uL (4.10-5.20); RDW 17.1 % (11.5-14.5); WBC 7.83 X 10*3/uL (4.50-10.00)
== END | disposition home or self-care (01) ==
LOC: LABPAT 13:01
PROVIDERS: ATTEND Orthopaedic Surgery
DX: Z01.812 Encounter for preprocedural laboratory examination (principal); M17.12 Unilateral primary osteoarthritis, left knee
CPT/HCPCS: 36415; 80053; 81001; 85027; 85610; 85730; 87070

== ENCOUNTER 2022-09-29 14:45 | Emergency (ER) | payer MEDICARE, OTHER ==
[2022-09-29 15:38] VITALS: TEMP 98
[2022-09-29] MEDS ORDERED: HYDROmorphone 1 MG/ML 1 ML SYRINGE IM STA (16:15)
--- NOTE | 2022-09-29 16:17 | ED ---
Lower Extremity Injury HPI - General Chief Complaint: Extremity Injury, Lower Stated Complaint: knee pain Time Seen by Provider: 09/29/22 15:57 Source: patient, RN notes reviewed, old records reviewed Mode of arrival: EMS Limitations: no limitations - History of Present Illness Initial Comments: This is a 72-year-old female to the ER today. Patient to the emergency department for evaluation of knee pain bilateral knee pain. Patient states the knee pain began on her left knee radiating to her left thigh. Patient also complaining of patient initially felt pain in her left knee ER for nearly she is scheduled to have surgery until he can may have given out or slipped and fell backward landing on her back complaining of back pain as well. Patient is released medic injury follows mechanical in nature and does come also complaining of right knee pain which she believes may be due to favoring the right knee. MD Complaint: knee injury (Bilateral), fall, other (Back) Injury: Knee: Left, Right Type of Injury: hyperextension, hyperflexion Place: home Severity: moderate Severity scale (1-10): 7 Improves With: nothing Worsens With: weight bearing, movement Context: fall, walking Associated Symptoms: snap/pop sensation, swelling, able to partially bear weight Treatments Prior to Arrival: bandage (Stevan wrap) - Related Data Home Medications Medication Instructions Recorded Confirmed Pantoprazole Sodium [Protonix] 40 mg PO BID 04/09/16 09/21/22 EPINEPHrine [Epipen 2-River] 0.3 mg IM ONCE PRN 11/16/16 09/21/22 Sucralfate [Carafate] 1 gm PO ACHS 12/13/16 09/21/22 Losartan Potassium 50 mg PO BID 09/16/17 09/21/22 diazePAM [Valium] 5 mg PO DAILY PRN 09/16/17 09/21/22 Levothyroxine Sodium [Synthroid] 88 mcg PO DAILY 04/24/18 09/21/22 buPROPion HCL [Wellbutrin SR] 200 mg PO BID 08/11/18 09/21/22 hydroCHLOROthiazide 12.5 mg PO DAILY 09/12/18 09/21/22 Albuterol Sulfate [Proair Hfa] 1 - 2 puff INHALATION RT-Q4H PRN 03/21/19 09/21/22 diphenhydrAMINE [Benadryl] 50 mg PO HS 03/21/19 09/21/22 Ascorbic Acid [Vitamin C] 1,000 mg PO DAILY 12/12/20 09/21/22 Fexofenadine HCl [Payton Allergy] 180 mg PO BID 12/12/20 09/21/22 valACYclovir HCL [Valtrex] 500 mg PO BID 12/12/20 09/21/22 Biotin Gummy 1 tab PO DAILY 06/17/21 09/21/22 HYDROcodone/APAP 7.5-325MG [Honaker 1 tab PO BID 06/17/21 09/21/22 7.5-325] Metoprolol Tartrate [Lopressor] 25 mg PO BID 06/17/21 09/21/22 Multivitamin [Multivitamins Adult 1 tab PO DAILY 06/17/21 09/21/22 Gummies] DULoxetine HCL [Cymbalta] 120 mg PO DAILY 09/21/22 09/21/22 Previous Rx's Medication Instructions Recorded Ondansetron Odt [Zofran Odt] 4 mg PO Q8HR PRN #10 tab 09/07/22 Allergies Allergy/AdvReac Type Severity Reaction Status Date / Time buprenorphine [From Butrans] Allergy pain Verified 09/29/22 15:39 carisoprodol [From Soma] Allergy Unknown Verified 09/29/22 15:39 chlorpromazine Allergy Unknown Verified 09/29/22 15:39 [From Thorazine] ciprofloxacin [From Cipro] Allergy Unknown Verified 09/29/22 15:39 clonazepam [From Klonopin] Allergy Unknown Verified 09/29/22 15:39 cyclobenzaprine Allergy Unknown Verified 09/29/22 15:39 [From Flexeril] metoclopramide [From Reglan] Allergy Anaphylaxis Verified 09/29/22 15:39 metronidazole [From Flagyl] Allergy Anaphylaxis Verified 09/29/22 15:39 morphine Allergy Rash/Hives Verified 09/29/22 15:39 naproxen Allergy Unknown Verified 09/29/22 15:39 papaya Allergy Rash/Hives Verified 09/29/22 15:39 prednisone Allergy Anaphylaxis Verified 09/29/22 15:39 prochlorperazine Allergy Anaphylaxis Verified 09/29/22 15:39 [From Compazine] red dye Allergy Rash/Hives Verified 05/24/23 15:39 venom-honey bee Allergy Anaphylaxis Verified 09/29/22 15:39 [bee venom (honey bee)] ketorolac [From Toradol] AdvReac Severe Abdominal Verified 09/29/22 15:39 Pain baclofen AdvReac Twitching Verified 09/29/22 15:39 buspirone [From BuSpar] AdvReac Confusion Verified 09/29/22 15:39 ibuprofen [From Motrin] AdvReac Abdominal Verified 09/29/22 15:39 Pain meperidine [From Demerol] AdvReac Rapid Verified 09/29/22 15:39 Heart Rate Phenothiazines AdvReac Altered Verified 09/29/22 15:39 Mental Status sulfamethoxazole AdvReac Rash/Hives Verified 09/29/22 15:39 [From Bactrim] trimethoprim [From Bactrim] AdvReac Rash/Hives Verified 09/29/22 15:39 Review of Systems ROS Statement: Those systems with pertinent positive or pertinent negative responses have been documented in the HPI. ROS Other: All systems not noted in ROS Statement are negative. Past Medical History Past Medical History: Asthma, Cancer, COPD, GERD/Reflux, Hypertension, Pneumonia, Thyroid Disorder Additional Past Medical History / Comment(s): shingles, RT BREAST LUMPECTOMY/CANCER, THYROID REMOVE, CATARACTS, BRONCHITIS, MONO TEENAGER, LITE CASE OF POLIO AGE 8, MELANOMA SKIN CANCER REMOVED, r shoulder rotator tear History of Any Multi-Drug Resistant Organisms: MRSA Date of last positivie culture/infection: 2009 MDRO Source:: LEFT ULNAR BONE, kidneys Past Surgical History: Appendectomy, Back Surgery, Cholecystectomy, Orthopedic Surgery Additional Past Surgical History / Comment(s): EYE SX FOR LAZY EYE, SX ON TEAR DUCTS, BACK SURGERY MICRO DISC, LT WRIST BROKEN 7 GALLO HAD 13 Surgeries TO CORRECT, left shoulder and humorous shattered from a fall with 2 surgeries to correct, LAPROSCOPIES- BENIGN TUNOR SIZE OF GRAPFRUIT REMOVED AGE 11 OR 1, RT BREAST BX/LUMPECTOMY,LT PINK FINGER SX TO STRAIGHTEN.MELANOMA SKIN CANCER REMOVED. Past Anesthesia/Blood Transfusion Reactions: No Reported Reaction Additional Past Anesthesia/Blood Transfusion Reaction / Comment(s): CLAUSTERPHOBIA Past Psychological History: Anxiety, Depression, PTSD Smoking Status: Never smoker Past Alcohol Use History: None Reported Past Drug Use History: None Reported - Past Family History Mother Family Medical History: Asthma Additional Family Medical History / Comment(s): ETOH/SMOKER Father Family Medical History: Cancer, Liver Disease Additional Family Medical History / Comment(s): ESOPHOGEAL CANCER, ETOH General Exam Limitations: no limitations General appearance: alert, in no apparent distress Head exam: Present: atraumatic, normocephalic, normal inspection Eye exam: Present: normal appearance, PERRL, EOMI. Absent: scleral icterus, conjunctival injection, periorbital swelling ENT exam: Present: normal exam, mucous membranes moist Neck exam: Present: normal inspection. Absent: tenderness, meningismus, lymphadenopathy Respiratory exam: Present: normal lung sounds bilaterally. Absent: respiratory distress, wheezes, rales, rhonchi, stridor Cardiovascular Exam: Present: regular rate, normal rhythm, normal heart sounds. Absent: systolic murmur, diastolic murmur, rubs, gallop, clicks GI/Abdominal exam: Present: soft, normal bowel sounds. Absent: distended, tenderness, guarding, rebound, rigid Extremities exam: Present: normal inspection, full ROM, normal capillary refill. Absent: tenderness, pedal edema, joint swelling, calf tenderness Back exam: Present: normal inspection Neurological exam: Present: alert, oriented X3, CN II-XII intact Psychiatric exam: Present: normal affect, normal mood Skin exam: Present: warm, dry, intact, normal color. Absent: rash Course Vital Signs 09/29/22 09/29/22 15:36 17:52 Temperature 98.0 F Pulse Rate 65 58 L Respiratory 17 18 Rate Blood Pressure 125/71 121/63 O2 Sat by Pulse 98 98 Oximetry - Reevaluation(s) Reevaluation #1: 09/29/22 17:02 Medical records reviewed Reevaluation #2: 09/29/22 17:02 Patient informed results questions answered Reevaluation #3: 09/29/22 17:02 Patient symptoms are improved Reevaluation #4: 09/29/22 17:02 Was pt. sent in by a medical professional or institution? @ -no Did you speak to anyone other than the patient for history? @ -no Did you review nursing and triage notes? @ -agree Were old charts reviewed? @ -no Differential Diagnosis? @ -prior EKG interpreted by me (3pts min.)? @ -no X-rays interpreted by me (1pt min.)? @ -yes CT interpreted by me (1pt min.)? @ -no U/S interpreted by me (1pt. min.)? @ -no What testing was considered but not performed? (CT, X-rays, U/S, labs)? Why? @ -no What meds were considered but not given? Why? @ -no Did you discuss the management of the patient with other professionals? @ -no Did you reconcile home meds? @ -no Was smoking cessation discussed for >3mins.? @ -no Was critical care preformed (if so, how long)? @ -no Were there social determinants of health that impacted care today? How? (Homelessness, low income, unemployed, alcoholism, drug addiction, transportation, low edu. Level, literacy, decrease access to med. care, skilled nursing, rehab)? @ -no Was there de-escalation of care discussed even if they declined? (Discuss DNR or withdrawal of care, Hospice)? @ -no What co-morbidities impacted this encounter? (DM, HTN, Smoking, COPD, CAD, Cancer, CVA, Hep., AIDS, mental health diagnosis, sleep apnea, morbid obesity)? @ -none Was patient admitted / discharged? @ -72 female to the emergency department for evaluation of knee pain bilateral knee pain history of fossa) arthritis both knees her knees gave out while walking currently normal testing here in the ER patient's pain is controlled and she can be discharged home Discharged Undiagnosed new problem with uncertain prognosis? @ -no Drug Therapy requiring intensive monitoring for toxicity (Heparin, Nitro, Insulin, Cardizem)? @ -no Were any procedures done? @ -no Diagnosis/symptom? @ -Bilateral knee pain Acute, or Chronic, or Acute on Chronic? @ -no Uncomplicated (without systemic symptoms) or Complicated (systemic symptoms)? @ -uncomplicated Side effects of treatment? @ -no Exacerbation, Progression, or Severe Exacerbation] @ -no Poses a threat to life or bodily function? @ -no Medical Decision Making - Medical Decision Making 72 female to the emergency department for evaluation of fall fall after having issue with her left knee which she is scheduled for surgery. Patient has left knee pain right knee pain and back pain all x-rays are negative for traumatic injury and patient can be discharged home - Radiology Data Radiology results: report reviewed (X-ray left knee, x-ray right knee, x-ray of LS-spine is negative for traumatic injury), image reviewed Disposition Clinical Impression: Left knee sprain, Contusion, Right knee pain Disposition: HOME SELF-CARE Condition: Good Instructions (If sedation given, give patient instructions): Knee Sprain (ED), Knee Pain (ED) Is patient prescribed a controlled substance at d/c from ED?: No Referrals: None,Stated [REFERRING] - 1-2 days Time of Disposition: 17:00
--- NOTE | 2022-09-29 17:06 | XR ---
EXAMINATION TYPE: XR knee complete bilateral DATE OF EXAM: 09/29/2022 COMPARISON: 07/13/2022 HISTORY: Fall, pain TECHNIQUE: Bilateral knees 3 views each FINDINGS: Left knee: Tiny medial and lateral tibial plateau spurring is present. Some mild calcification is wit hin the menisci. There is mild narrowing of medial compartment joint space. Medial femoral condylar s purring is noted. Small to moderate joint effusion is present. Posterior superior and posterior infer ior patellar spurring is present. No acute fracture or dislocation is evident. Right knee: No joint effusion is evident. There is calcification within the medial lateral menisci. M edial femoral condylar and medial tibial plateau spurring is present. No acute fractures or dislocati ons are evident. IMPRESSION: 1. Mild degenerative changes bilateral knee joint spaces slightly greater on the left. 2. No acute osseous abnormality. Follow up exams can be performed 7-10 days from acute trauma for con tinued pain. 3. Moderate left knee joint effusion. MRI can be performed if follow-up of soft tissues of the views.
--- NOTE | 2022-09-29 17:09 | XR ---
EXAMINATION TYPE: XR lumbar spine 2 or 3V DATE OF EXAM: 09/29/2022 COMPARISON: 05/15/2018 HISTORY: fall TECHNIQUE: Three-view lumbar spine FINDINGS: There are 5 lumbar-type vertebral bodies. Pedicles are intact. There is scoliosis present w ith convexity to the right. Loss of disc height is noted L5-S1. Remaining disc heights are preserved. Vertebral body heights are preserved. IMPRESSION: 1. Degenerative disc change L5-S1
[2022-09-29 17:53] VITALS: BP 121/63; PULSE 58; RESP 18
== END 2022-09-29 18:18 | disposition home or self-care (01) ==
LOC: EC 14:45
DX: S83.92XA Sprain of unspecified site of left knee, initial encounter (principal); S80.01XA Contusion of right knee, initial encounter; I10 Essential (primary) hypertension; J44.9 Chronic obstructive pulmonary disease, unspecified; F32.A Depression, unspecified; F41.9 Anxiety disorder, unspecified; K21.9 Gastro-esophageal reflux disease without esophagitis; E07.9 Disorder of thyroid, unspecified; Z79.890 Hormone replacement therapy; Z79.899 Other long term (current) drug therapy; Z88.1 Allergy status to other antibiotic agents; Z88.2 Allergy status to sulfonamides; Z88.5 Allergy status to narcotic agent; Z88.6 Allergy status to analgesic agent; Z91.018 Allergy to other foods; Z91.041 Radiographic dye allergy status; Z91.030 Bee allergy status; Z88.8 Allergy status to other drugs, medicaments and biological substances; W19.XXXA Unspecified fall, initial encounter; Y92.009 Unspecified place in unspecified non-institutional (private) residence as the place of occurrence of the external cause; Y93.01 Activity, walking, marching and hiking
CPT/HCPCS: 73562; 72100; 99284; 96372; J1170

== ENCOUNTER 2022-12-02 05:26 | Emergency (ER) | payer MEDICARE, OTHER ==
--- NOTE | 2022-12-02 05:52 | ED ---
Lower Extremity Injury HPI - General Source: patient, EMS, RN notes reviewed, old records reviewed Mode of arrival: EMS Limitations: no limitations - History of Present Illness MD Complaint: knee injury (Left knee) -: year(s) Injury: Knee: Left Place: home Severity: mild Severity scale (1-10): 2 Improves With: nothing Worsens With: weight bearing Other Symptoms: SOB Associated Symptoms: able to partially bear weight Treatments Prior to Arrival: bandage <Noah Martinez - Last Filed: 12/02/22 05:53> <Mik Decker - Last Filed: 12/02/22 10:55> - General Chief Complaint: Extremity Injury, Lower Stated Complaint: Chest Pain Time Seen by Provider: 12/02/22 05:39 - History of Present Illness Initial Comments: This is a 72-year-old female to the ER today. Patient Dese for evaluation of multiple complaints. Patient does suffer from some underlying anxiety and paranoid thought process. Patient is here for recurrent complaint of left knee pain states that she was unable to have surgery on her left knee and her left is causing her continued and persistent pain. Patient also admits to chest pain today she is concern for worsening gastritis or reflux but states the pain that she does not typically experience maybe mildly worsen prior. No travel history no sick contacts noted trauma no new falls no shortness of breath no cough or congestion (Noah Martinez) - Related Data Home Medications Medication Instructions Recorded Confirmed Pantoprazole Sodium [Protonix] 40 mg PO BID 04/09/16 09/21/22 EPINEPHrine [Epipen 2-River] 0.3 mg IM ONCE PRN 11/16/16 09/21/22 Sucralfate [Carafate] 1 gm PO ACHS 12/13/16 09/21/22 Losartan Potassium 50 mg PO BID 09/16/17 09/21/22 diazePAM [Valium] 5 mg PO DAILY PRN 09/16/17 09/21/22 Levothyroxine Sodium [Synthroid] 88 mcg PO DAILY 04/24/18 09/21/22 buPROPion HCL [Wellbutrin SR] 200 mg PO BID 08/11/18 09/21/22 hydroCHLOROthiazide 12.5 mg PO DAILY 09/12/18 09/21/22 Albuterol Sulfate [Proair Hfa] 1 - 2 puff INHALATION RT-Q4H PRN 03/21/19 09/21/22 diphenhydrAMINE [Benadryl] 50 mg PO HS 03/21/19 09/21/22 Ascorbic Acid [Vitamin C] 1,000 mg PO DAILY 12/12/20 09/21/22 Fexofenadine HCl [[place] Allergy] 180 mg PO BID 12/12/20 09/21/22 valACYclovir HCL [Valtrex] 500 mg PO BID 12/12/20 09/21/22 Biotin Gummy 1 tab PO DAILY 06/17/21 09/21/22 HYDROcodone/APAP 7.5-325MG [[place] 1 tab PO BID 06/17/21 09/21/22 7.5-325] Metoprolol Tartrate [Lopressor] 25 mg PO BID 06/17/21 09/21/22 Multivitamin [Multivitamins Adult 1 tab PO DAILY 06/17/21 09/21/22 Gummies] DULoxetine HCL [Cymbalta] 120 mg PO DAILY 09/21/22 09/21/22 Previous Rx's Medication Instructions Recorded Ondansetron Odt [Zofran Odt] 4 mg PO Q8HR PRN #10 tab 09/07/22 Allergies Allergy/AdvReac Type Severity Reaction Status Date / Time buprenorphine [From Butrans] Allergy pain Verified 09/29/22 15:39 carisoprodol [From Soma] Allergy Unknown Verified 09/29/22 15:39 chlorpromazine Allergy Unknown Verified 09/29/22 15:39 [From Thorazine] ciprofloxacin [From Cipro] Allergy Unknown Verified 09/29/22 15:39 clonazepam [From Klonopin] Allergy Unknown Verified 09/29/22 15:39 cyclobenzaprine Allergy Unknown Verified 09/29/22 15:39 [From Flexeril] metoclopramide [From Reglan] Allergy Anaphylaxis Verified 09/29/22 15:39 metronidazole [From Flagyl] Allergy Anaphylaxis Verified 09/29/22 15:39 morphine Allergy Rash/Hives Verified 09/29/22 15:39 naproxen Allergy Unknown Verified 09/29/22 15:39 papaya Allergy Rash/Hives Verified 09/29/22 15:39 prednisone Allergy Anaphylaxis Verified 09/29/22 15:39 prochlorperazine Allergy Anaphylaxis Verified 09/29/22 15:39 [From Compazine] red dye Allergy Rash/Hives Verified 09/29/22 15:39 venom-honey bee Allergy Anaphylaxis Verified 09/29/22 15:39 [bee venom (honey bee)] ketorolac [From Toradol] AdvReac Severe Abdominal Verified 09/29/22 15:39 Pain baclofen AdvReac Twitching Verified 09/29/22 15:39 buspirone [From BuSpar] AdvReac Confusion Verified 09/29/22 15:39 ibuprofen [From Motrin] AdvReac Abdominal Verified 09/29/22 15:39 Pain meperidine [From Demerol] AdvReac Rapid Verified 09/29/22 15:39 Heart Rate Phenothiazines AdvReac Altered Verified 09/29/22 15:39 Mental Status sulfamethoxazole AdvReac Rash/Hives Verified 09/29/22 15:39 [From Bactrim] trimethoprim [From Bactrim] AdvReac Rash/Hives Verified 09/29/22 15:39 Review of Systems ROS Other: All systems not noted in ROS Statement are negative. <Noah Martinez - Last Filed: 12/02/22 05:53> ROS Other: All systems not noted in ROS Statement are negative. <Mik Decker - Last Filed: 12/02/22 10:55> ROS Statement: Those systems with pertinent positive or pertinent negative responses have been documented in the HPI. Past Medical History Past Medical History: Asthma, Cancer, COPD, GERD/Reflux, Hypertension, Pneumonia, Thyroid Disorder Additional Past Medical History / Comment(s): shingles, RT BREAST LUMPECT HANNAH/CANCER, THYROID REMOVE, CATARACTS, BRONCHITIS, MONO TEENAGER, LITE CASE OF POLIO AGE 8, MELANOMA SKIN CANCER REMOVED, r shoulder rotator tear History of Any Multi-Drug Resistant Organisms: MRSA Date of last positivie culture/infection: 2009 MDRO Source:: LEFT ULNAR BONE, kidneys Past Surgical History: Appendectomy, Back Surgery, Cholecystectomy, Orthopedic Surgery Additional Past Surgical History / Comment(s): EYE SX FOR LAZY EYE, SX ON TEAR DUCTS, BACK SURGERY MICRO DISC, LT WRIST BROKEN 9 GALLO HAD 13 Surgeries TO CORRECT, left shoulder and humorous shattered from a fall with 2 surgeries to correct, LAPROSCOPIES- BENIGN TUNOR SIZE OF GRAPFRUIT REMOVED AGE 11 OR 1, RT BREAST BX/LUMPECTOMY,LT PINK FINGER SX TO STRAIGHTEN.MELANOMA SKIN CANCER REMOVED. Past Anesthesia/Blood Transfusion Reactions: No Reported Reaction Additional Past Anesthesia/Blood Transfusion Reaction / Comment(s): CLAUSTERPHOBIA Past Psychological History: Anxiety, Depression, PTSD Smoking Status: Never smoker Past Alcohol Use History: None Reported Past Drug Use History: None Reported - Past Family History Mother Family Medical History: Asthma Additional Family Medical History / Comment(s): ETOH/SMOKER Father Family Medical History: Cancer, Liver Disease Additional Family Medical History / Comment(s): ESOPHOGEAL CANCER, ETOH <Noah Martinez - Last Filed: 12/02/22 05:53> General Exam Limitations: no limitations General appearance: alert, in no apparent distress Head exam: Present: atraumatic, normocephalic, normal inspection Eye exam: Present: normal appearance, PERRL, EOMI. Absent: scleral icterus, conjunctival injection, periorbital swelling ENT exam: Present: normal exam, mucous membranes moist Neck exam: Present: normal inspection. Absent: tenderness, meningismus, lymphadenopathy Respiratory exam: Present: normal lung sounds bilaterally. Absent: respiratory distress, wheezes, rales, rhonchi, stridor Cardiovascular Exam: Present: regular rate, normal rhythm, normal heart sounds. Absent: systolic murmur, diastolic murmur, rubs, gallop, clicks GI/Abdominal exam: Present: soft, normal bowel sounds. Absent: distended, tenderness, guarding, rebound, rigid Extremities exam: Present: normal inspection, full ROM, normal capillary refill. Absent: tenderness, pedal edema, joint swelling, calf tenderness Back exam: Present: normal inspection Neurological exam: Present: alert, oriented X3, CN II-XII intact Psychiatric exam: Present: normal affect, normal mood Skin exam: Present: warm, dry, intact, normal color. Absent: rash <Noah Martinez - Last Filed: 12/02/22 05:53> Course <Noah Martinez - Last Filed: 12/02/22 05:53> Vital Signs 12/02/22 12/02/22 05:31 07:19 Temperature 98.2 F 98.6 F Pulse Rate 68 61 Respiratory 18 16 Rate Blood Pressure 129/61 137/88 O2 Sat by Pulse 96 98 Oximetry - Reevaluation(s) Reevaluation #1: 12/02/22 05:54 Medical record is reviewed (Noah Martinez) Reevaluation #2: 12/02/22 05:54 Patient symptoms are improving (Noah Martinez) Reevaluation #4: 12/02/22 05:54 Was pt. sent in by a medical professional or institution (SHAYLA Lerner, RADIOLOGIC TECHNICIAN, urgent care, hospital, or long term...) When possible be specific @ -no Did you speak to anyone other than the patient for history (EMS, parent, family, police, friend...)? What history was obtained from this source @ -no Did you review nursing and triage notes (agree or disagree)? Why? @ -agree Are old charts reviewed (outside hosp., previous admission, EMS record, old EKG, old radiological studies, urgent care reports/EKG's, long term records)? Report findings @ -yes Differential Diagnosis (chest pain, altered mental status, abdominal pain women, abdominal pain men, vaginal bleeding, weakness, fever, dyspnea, syncope, headache, dizziness, GI bleed, back pain, seizure, CVA, palpatations, mental health, musculoskeletal)? @ -prior EKG interpreted by me (3pts min.). @ -yes X-rays interpreted by me (1pt min.). @ -yes CT interpreted by me (1pt min.). @ -no U/S interpreted by me (1pt. min.). @ -no What testing was considered but not performed or refused? (CT, X-rays, U/S, labs)? Why? @ -none What meds were considered but not given or refused? Why? @ -none Did you discuss the management of the patient with other professionals (professionals i.e. SHAYLA Lerner, RADIOLOGIC TECHNICIAN, lab, RT, psych nurse, manager social responsibility, dowel pin man, teacher, traffic control officer, hospice case manager)? Give summary @ -no Was smoking cessation discussed for >3mins.? @ -no Was critical care preformed (if so, how long)? @ -no Were there social determinants of health that impacted care today? How? (Homelessness, low income, unemployed, alcoholism, drug addiction, transporta tion, low edu. Level, literacy, decrease access to med. care, long term, rehab)? @ -none Was there de-escalation of care discussed even if they declined (Discuss DNR or withdrawal of care, Hospice)? DNR status @ -no What co-morbidities impacted this encounter? (DM, HTN, Smoking, COPD, CAD, Cancer, CVA, ARF, Chemo, Hep., AIDS, mental health diagnosis, sleep apnea, morbid obesity)? @ -none Was patient admitted / discharged? Hospital course, mention meds given and route, prescriptions, significant lab abnormalities, going to OR and other pertinent info. @ - Undiagnosed new problem with uncertain prognosis? @ -no Drug Therapy requiring intensive monitoring for toxicity (Heparin, Nitro, Insulin, Cardizem)? @ -no Were any procedures done? @ -no Diagnosis/symptom? @ - Acute, or Chronic, or Acute on Chronic? @ -Acute Uncomplicated (without systemic symptoms) or Complicated (systemic symptoms)? @ -Complicated Side effects of treatment? @ -no Exacerbation, Progression, or Severe Exacerbation? @ -exacerbation Poses a threat to life or bodily function? How? (Chest pain, [place], [place], pneumonia, PE, COPD, DKA, ARF, appy, cholecystitis, CVA, Diverticulitis, Homicidal, Suicidal, threat to staff... and all critical care pts) @ -yes (Noah Martinez) Reevaluation #5: 12/02/22 05:54 Differential Chest Pain: Stable Angina, Unstable Angina, STEMI, NSTEMI Aortic Dissection, Pneumothorax, Musculoskeletal, Esophageal Spasm GERD, Cholecystitis, Pancreatitis, Zoster, this is not meant to be an all-inclusive list. (Noah Martinez) Medical Decision Making - EKG Data -: EKG Interpreted by Me (EKG shows bradycardia 56 DE 219 QRS I 70 QTc 408) <Noah Martinez - Last Filed: 12/02/22 05:53> - Lab Data Result diagrams: 12/02/22 06:13 12/02/22 06:13 <Mik Decker - Last Filed: 12/02/22 10:55> - Medical Decision Making Patient sounded to me pending results of troponin. Patient presents for a reflux type chest pain which is typical for the patient she did recently have her Protonix dosage reduced. Resolved with GI cocktail and Zofran. Also complains of chronic left knee pain with known arthritis with recently canceled surgery. Patient presented for workup. This includes an undetectable troponin. BNP within normal limits, EKG that is within acceptable limits. Symp toms have resolved with GERD medications. Vital signs are stable. She'll be discharged home this time with strict return precautions. Her chest discomfort is likely secondary to acid reflux. I instructed the patient to follow up with their PCP in the next 1-3 days. I explained that the patient should return to the emergency department if they experience any worsening symptoms. Strict return precautions were discussed with the patient. The patient expressed understanding of these instructions. I answered all questions that the patient had. The patient was discharged home in good condition with their prescriptions and follow up information. Diagnosis/symptom? @ -GERD Acute, or Chronic, or Acute on Chronic? @ -Acute Uncomplicated (without systemic symptoms) or Complicated (systemic symptoms)? @ -complicated Side effects of treatment? @ -none Exacerbation, Progression, or Severe Exacerbation] @ -no Poses a threat to life or bodily function? @ -no Diagnosis/symptom? @ -Chronic knee pain secondary to known osteoarthritis Acute, or Chronic, or Acute on Chronic? @ -Chronic Uncomplicated (without systemic symptoms) or Complicated (systemic symptoms)? @ -Uncomplicated Side effects of treatment? @ -none Exacerbation, Progression, or Severe Exacerbation] @ -no Poses a threat to life or bodily function? @ -no (Mik Decker) - Lab Data Lab Results 12/02/22 12/02/22 12/02/22 Range/Units 06:13 06:13 06:13 WBC 5.4 (3.8-10.6) k/uL RBC 3.58 L (3.80-5.40) m/uL Hgb 10.5 L (11.4-16.0) gm/dL Hct 33.5 L (34.0-46.0) % MCV 93.6 (80.0-100.0) fL MCH 29.4 (25.0-35.0) pg MCHC 31.4 (31.0-37.0) g/dL RDW 16.0 H (11.5-15.5) % Plt Count 242 (150-450) k/uL MPV 10.6 Neutrophils % 44 % Lymphocytes % 42 % Monocytes % 7 % Eosinophils % 6 % Basophils % 0 % Neutrophils # 2.3 (1.3-7.7) k/uL Lymphocytes # 2.2 (1.0-4.8) k/uL Monocytes # 0.4 (0-1.0) k/uL Eosinophils # 0.3 (0-0.7) k/uL Basophils # 0.0 (0-0.2) k/uL PT 9.7 (9.0-12.0) sec INR 0.9 (<1.2) APTT 21.4 L (22.0-30.0) sec Sodium 139 (137-145) mmol/L Potassium 3.9 (3.5-5.1) mmol/L Chloride 108 H (98-107) mmol/L Carbon Dioxide 26 (22-30) mmol/L Anion Gap 5 mmol/L BUN 32 H (7-17) mg/dL Creatinine 1.04 (0.52-1.04) mg/dL Est GFR (CKD-EPI)AfAm 61 (>60 ml/min/1.73 sqM) Est GFR (CKD-EPI)NonAf 53 (>60 ml/min/1.73 sqM) Glucose 87 (74-99) mg/dL Calcium 9.0 (8.4-10.2) mg/dL Magnesium 1.9 (1.6-2.3) mg/dL Total Bilirubin 0.3 (0.2-1.3) mg/dL AST 26 (14-36) U/L ALT 20 (4-34) U/L Alkaline Phosphatase 133 H (38-126) U/L Troponin I (0.000-0.034) ng/mL NT-Pro-B Natriuret Pep 838 pg/mL Total Protein 6.0 L (6.3-8.2) g/dL Albumin 3.6 (3.5-5.0) g/dL Lipase 68 (23-300) U/L 12/02/22 Range/Units 06:13 WBC (3.8-10.6) k/uL RBC (3.80-5.40) m/uL Hgb (11.4-16.0) gm/dL Hct (34.0-46.0) % MCV (80.0-100.0) fL MCH (25.0-35.0) pg MCHC (31.0-37.0) g/dL RDW (11.5-15.5) % Plt Count (150-450) k/uL MPV Neutrophils % % Lymphocytes % % Monocytes % % Eosinophils % % Basophils % % Neutrophils # (1.3-7.7) k/uL Lymphocytes # (1.0-4.8) k/uL Monocytes # (0-1.0) k/uL Eosinophils # (0-0.7) k/uL Basophils # (0-0.2) k/uL PT (9.0-12.0) sec INR (<1.2) APTT (22.0-30.0) sec Sodium (137-145) mmol/L Potassium (3.5-5.1) mmol/L Chloride (98-107) mmol/L Carbon Dioxide (22-30) mmol/L Anion Gap mmol/L BUN (7-17) mg/dL Creatinine (0.52-1.04) mg/dL Est GFR (CKD-EPI)AfAm (>60 ml/min/1.73 sqM) Est GFR (CKD-EPI)NonAf (>60 ml/min/1.73 sqM) Glucose (74-99) mg/dL Calcium (8.4-10.2) mg/dL Magnesium (1.6-2.3) mg/dL Total Bilirubin (0.2-1.3) mg/dL AST (14-36) U/L ALT (4-34) U/L Alkaline Phosphatase (38-126) U/L Troponin I <0.012 (0.000-0.034) ng/mL NT-Pro-B Natriuret Pep pg/mL Total Protein (6.3-8.2) g/dL Albumin (3.5-5.0) g/dL Lipase (23-300) U/L Disposition <Noah Martinez - Last Filed: 12/02/22 05:53> Is patient prescribed a controlled substance at d/c from ED?: No Time of Disposition: 07:28 <Mik Decker - Last Filed: 12/02/22 10:55> Clinical Impression: GERD (gastroesophageal reflux disease), Chronic knee pain Disposition: HOME SELF-CARE Condition: Good Instructions (If sedation given, give patient instructions): GERD (Gastroesophageal Reflux Disease) (ED), Knee Pain (ED) Referrals: Julio Dailey MD [REFERRING] - 1-2 days
[2022-12-02] MEDS ORDERED: HYDROmorphone 1 MG/ML 1 ML SYRINGE IVP STA (05:53)
[2022-12-02] MEDS ORDERED: MAG HYDROX/AL HYDROX/SIMETH 30 ML, HYOSCYAMINE ELIXIR 10 ML, LIDOCAINE 2% GLYDO JELLY 1... PO STA ×3 (05:55)
[2022-12-02 06:50] LABS: Basophils % (A) 0 %; Eosinophils # (A) 0.3 k/uL (0-0.7); Eosinophils % (A) 6 %; HCT 33.5 % (34.0-46.0); HGB 10.5 gm/dL (11.4-16.0); Lymphocytes # (A) 2.2 k/uL (1.0-4.8); Lymphocytes % (A) 42 %; MCH 29.4 pg (25.0-35.0); MCHC 31.4 g/dL (31.0-37.0); MCV 93.6 fL (80.0-100.0); Mean Platelet Volume 10.6; Monocytes # (A) 0.4 k/uL (0-1.0); Monocytes % (A) 7 %; Neutrophils # (A) 2.3 k/uL (1.3-7.7); Neutrophils % (A) 44 %; Platelet Count 242 k/uL (150-450); RBC 3.58 m/uL (3.80-5.40); WBC 5.4 k/uL (3.8-10.6)
[2022-12-02 06:54] LABS: ALT 20 U/L (4-34); AST 26 U/L (14-36); African American GFR (CKD) 61 (>60 ml/min/1.73 sqM); Albumin 3.6 g/dL (3.5-5.0); Alkaline Phosphatase 133 U/L (38-126); Anion Gap 5 mmol/L; Blood Urea Nitrogen 32 mg/dL (7-17); Carbon Dioxide 26 mmol/L (22-30); Chloride 108 mmol/L (98-107); Glucose 87 mg/dL (74-99); Lipase 68 U/L (23-300); Magnesium 1.9 mg/dL (1.6-2.3); Non-African American GFR(CKD) 53 (>60 ml/min/1.73 sqM); Potassium 3.9 mmol/L (3.5-5.1); Sodium 139 mmol/L (137-145); Total Bilirubin 0.3 mg/dL (0.2-1.3)
[2022-12-02 07:01] LABS: NT-Pro-B-Type Natriuretic Pept 838 pg/mL
[2022-12-02 07:08] LABS: INR 0.9 (<1.2); Prothrombin Time 9.7 sec (9.0-12.0)
[2022-12-02 07:20] VITALS: BP 137/88; PULSE 61; RESP 16; TEMP 98.6
[2022-12-02] MEDS ORDERED: ONDANSETRON ODT 4 MG TAB PO STA (07:21)
--- NOTE | 2022-12-02 07:42 | XR ---
EXAMINATION TYPE: XR chest 1V portable DATE OF EXAM: 12/02/2022 Comparison: 04/03/2022 Clinical History: 72-year-old female chest pain Findings: Heart borderline enlarged. Mild interstitial prominence is chronic in appearance. Mild hyperinflation . No consolidation or pleural effusion. Chronic, healed angulated fracture deformity of the proximal left humerus at the surgical neck level. Impression: Borderline heart size. Possible underlying COPD. Clinically correlate. Otherwise, no definite acute p rocess.
[2022-12-02 09:23] LABS: Partial Thromboplastin Time 21.4 sec (22.0-30.0)
== END 2022-12-02 07:49 | disposition home or self-care (01) ==
LOC: EC 05:26
DX: G89.29 Other chronic pain (principal); M25.562 Pain in left knee; K21.9 Gastro-esophageal reflux disease without esophagitis; J44.9 Chronic obstructive pulmonary disease, unspecified; I10 Essential (primary) hypertension; E07.9 Disorder of thyroid, unspecified; F41.9 Anxiety disorder, unspecified; F32.A Depression, unspecified; Z79.899 Other long term (current) drug therapy; Z79.890 Hormone replacement therapy; Z88.0 Allergy status to penicillin; Z88.1 Allergy status to other antibiotic agents; Z88.2 Allergy status to sulfonamides; Z88.5 Allergy status to narcotic agent; Z88.8 Allergy status to other drugs, medicaments and biological substances; Z91.030 Bee allergy status
CPT/HCPCS: 36415; 93005; 83880; 80053; 83690; 83735; 84484; 85025; 85610; 85730; 71045; 99284; 96374; J1170

== ENCOUNTER 2022-12-26 04:47 | Emergency (ER) | payer MEDICARE, OTHER ==
[2022-12-26 05:00] VITALS: RESP 18; TEMP 97.6
--- NOTE | 2022-12-26 05:50 | XR ---
EXAMINATION TYPE: XR knee complete bilateral DATE OF EXAM: 12/26/2022 5:27 AM INDICATION: Patient age:Female; 72 years old; Reason for study: Pain; [facility]. COMPARISON: Bilateral knee radiograph 09/29/2022 TECHNIQUE: The bilateral knees were examined in 3 projections. Frontal, lateral and oblique. FINDINGS: No acute fracture or dislocation. Tricompartmental joint space narrowing with marginal sp urring bilaterally. No soft tissue swelling or joint effusion. Calcification within the menisci bilat erally. IMPRESSION: 1. No acute osseous pathology. 2. Mild tricompartmental osteoarthritic changes. 3. Chondrocalcinosis.
--- NOTE | 2022-12-26 06:00 | ED ---
General Adult HPI - General Chief complaint: Fall Stated complaint: Bilateral Knee Pain, Neck Pain Time Seen by Provider: 12/26/22 04:49 Source: EMS Mode of arrival: EMS Limitations: no limitations - History of Present Illness Initial comments: This is a 72-year-old female who is well-known to the emergency department presented to the emergency department via EMS after bilateral knee pain. The patient stated that she was doing laundry when she fell onto the bilateral knees around 5 PM. The patient was ambulatory throughout her house but stated that she had continued pain and discomfort and decided to call EMS at 5:00 in the morning. On arrival, the patient was able to move her bilateral extremities without any distress and did ambulate to the EMS stretcher. The patient denied any other acute pain or complaints at this time. The patient also denied hitting her head or loss of consciousness. - Related Data Home Medications Medication Instructions Recorded Confirmed Pantoprazole Sodium [Protonix] 40 mg PO BID 04/09/16 09/21/22 EPINEPHrine [Epipen 2-River] 0.3 mg IM ONCE PRN 11/16/16 09/21/22 Sucralfate [Carafate] 1 gm PO ACHS 12/13/16 09/21/22 Losartan Potassium 50 mg PO BID 09/16/17 09/21/22 diazePAM [Valium] 5 mg PO DAILY PRN 09/16/17 09/21/22 Levothyroxine Sodium [Synthroid] 88 mcg PO DAILY 04/24/18 09/21/22 buPROPion HCL [Wellbutrin SR] 200 mg PO BID 08/11/18 09/21/22 hydroCHLOROthiazide 12.5 mg PO DAILY 09/12/18 09/21/22 Albuterol Sulfate [Proair Hfa] 1 - 2 puff INHALATION RT-Q4H PRN 03/21/19 09/21/22 diphenhydrAMINE [Benadryl] 50 mg PO HS 03/21/19 09/21/22 Ascorbic Acid [Vitamin C] 1,000 mg PO DAILY 12/12/20 09/21/22 Fexofenadine HCl [[place] Allergy] 180 mg PO BID 12/12/20 09/21/22 valACYclovir HCL [Valtrex] 500 mg PO BID 12/12/20 09/21/22 Biotin Gummy 1 tab PO DAILY 06/17/21 09/21/22 HYDROcodone/APAP 7.5-325MG [[place] 1 tab PO BID 06/17/21 09/21/22 7.5-325] Metoprolol Tartrate [Lopressor] 25 mg PO BID 06/17/21 09/21/22 Multivitamin [Multivitamins Adult 1 tab PO DAILY 06/17/21 09/21/22 Gummies] DULoxetine HCL [Cymbalta] 120 mg PO DAILY 09/21/22 09/21/22 Previous Rx's Medication Instructions Recorded Ondansetron Odt [Zofran Odt] 4 mg PO Q8HR PRN #10 tab 09/07/22 Allergies Allergy/AdvReac Type Severity Reaction Status Date / Time buprenorphine [From Butrans] Allergy pain Verified 09/29/22 15:39 carisoprodol [From Soma] Allergy Unknown Verified 09/29/22 15:39 chlorpromazine Allergy Unknown Verified 09/29/22 15:39 [From Thorazine] ciprofloxacin [From Cipro] Allergy Unknown Verified 09/29/22 15:39 clonazepam [From Klonopin] Allergy Unknown Verified 09/29/22 15:39 cyclobenzaprine Allergy Unknown Verified 09/29/22 15:39 [From Flexeril] metoclopramide [From Reglan] Allergy Anaphylaxis Verified 09/29/22 15:39 metronidazole [From Flagyl] Allergy Anaphylaxis Verified 09/29/22 15:39 morphine Allergy Rash/Hives Verified 09/29/22 15:39 naproxen Allergy Unknown Verified 09/29/22 15:39 papaya Allergy Rash/Hives Verified 09/29/22 15:39 prednisone Allergy Anaphylaxis Verified 09/29/22 15:39 prochlorperazine Allergy Anaphylaxis Verified 09/29/22 15:39 [From Compazine] red dye Allergy Rash/Hives Verified 09/29/22 15:39 venom-honey bee Allergy Anaphylaxis Verified 09/29/22 15:39 [bee venom (honey bee)] ketorolac [From Toradol] AdvReac Severe Abdominal Verified 09/29/22 15:39 Pain baclofen AdvReac Twitching Verified 09/29/22 15:39 buspirone [From BuSpar] AdvReac Confusion Verified 09/29/22 15:39 ibuprofen [From Motrin] AdvReac Abdominal Verified 09/29/22 15:39 Pain meperidine [From Demerol] AdvReac Rapid Verified 09/29/22 15:39 Heart Rate Phenothiazines AdvReac Altered Verified 09/29/22 15:39 Mental Status sulfamethoxazole AdvReac Rash/Hives Verified 09/29/22 15:39 [From Bactrim] trimethoprim [From Bactrim] AdvReac Rash/Hives Verified 09/29/22 15:39 Review of Systems ROS Statement: Those systems with pertinent positive or pertinent negative responses have been documented in the HPI. ROS Other: All systems not noted in ROS Statement are negative. Past Medical History Past Medical History: Asthma, Cancer, COPD, GERD/Reflux, Hypertension, Pneumonia, Thyroid Disorder Additional Past Medical History / Comment(s): shingles, RT BREAST LUMPECTOMY/CANCER, THYROID REMOVE, CATARACTS, BRONCHITIS, MONO TEENAGER, LITE CASE OF POLIO AGE 8, MELANOMA SKIN CANCER REMOVED, r shoulder rotator tear History of Any Multi-Drug Resistant Organisms: MRSA Date of last positivie culture/infection: 2009 MDRO Source:: LEFT ULNAR BONE, kidneys Past Surgical History: Appendectomy, Back Surgery, Cholecystectomy, Orthopedic Surgery Additional Past Surgical History / Comment(s): EYE SX FOR LAZY EYE, SX ON TEAR DUCTS, BACK SURGERY MICRO DISC, LT WRIST BROKEN 7 GALLO HAD 13 Surgeries TO CORRECT, left shoulder and humorous shattered from a fall with 2 surgeries to correct, LAPROSCOPIES- BENIGN TUNOR SIZE OF GRAPFRUIT REMOVED AGE 11 OR 1, RT BREAST BX/LUMPECTOMY,LT PINK FINGER SX TO STRAIGHTEN.MELANOMA SKIN CANCER REMOVED. Past Anesthesia/Blood Transfusion Reactions: No Reported Reaction Additional Past Anesthesia/Blood Transfusion Reaction / Comment(s): CLAUSTERPHOBIA Past Psychological History: Anxiety, Depression, PTSD Smoking Status: Never smoker Past Alcohol Use History: None Reported Past Drug Use History: None Reported - Past Family History Mother Family Medical History: Asthma Additional Family Medical History / Comment(s): ETOH/SMOKER Father Family Medical History: Cancer, Liver Disease Additional Family Medical History / Comment(s): ESOPHOGEAL CANCER, ETOH General Exam Limitations: no limitations General appearance: alert, in no apparent distress Head exam: Present: atraumatic, normocephalic, normal inspection Eye exam: Present: normal appearance, PERRL Pupils: Present: normal accommodation ENT exam: Present: normal exam, normal oropharynx, mucous membranes moist Neck exam: Present: normal inspection, full ROM Respiratory exam: Present: normal lung sounds bilaterally. Absent: respiratory distress Cardiovascular Exam: Present: regular rate, normal rhythm, normal heart sounds GI/Abdominal exam: Present: soft, normal bowel sounds Extremities exam: Present: normal inspection, full ROM. Absent: tenderness Back exam: Present: normal inspection, full ROM Neurological exam: Present: alert, oriented X3, CN II-XII intact Psychiatric exam: Present: normal affect, normal mood Skin exam: Present: warm, dry Course Vital Signs 12/26/22 04:54 Temperature 97.6 F Pulse Rate 65 Respiratory 18 Rate Blood Pressure 106/52 O2 Sat by Pulse 98 Oximetry Medical Decision Making - Medical Decision Making Was pt. sent in by a medical professional or institution (SHAYLA Lerner, VENETIAN BLIND CLEANER AND REPAIRER, urgent care, hospital, or fci...) When possible be specific @ -No Did you speak to anyone other than the patient for history (EMS, parent, family, police, friend...)? What history was obtained from this source @ -No Did you review nursing and triage notes (agree or disagree)? Why? @ -I reviewed and agree with nursing and triage notes Were old charts reviewed (outside hosp., previous admission, EMS record, old EKG, old radiological studies, urgent care reports/EKG's, fci records)? Report findings @ -No old charts were reviewed Differential Diagnosis (chest pain, altered mental status, abdominal pain women, abdominal pain men, vaginal bleeding, weakness, fever, dyspnea, syncope, headache, dizziness, GI bleed, back pain, seizure, CVA, palpatations, mental health)? @ -Knee contusion, knee sprain, chronic arthritis EKG interpreted by me (3pts min.). @ -None X-rays interpreted by me (1pt min.). @ -Bilateral knee x-rays were obtained and were interpreted by myself showing no acute process. There was mild tricompartmental also arthritic changes. CT interpreted by me (1pt min.). @ -None done U/S interpreted by me (1pt. min.). @ -None done What testing was considered but not performed or refused? (CT, X-rays, U/S, labs)? Why? @ -None What meds were considered but not given or refused? Why? @ -None Did you discuss the management of the patient with other professionals (professionals i.e. , PA, VENETIAN BLIND CLEANER AND REPAIRER, lab, RT, psych nurse, director social service, transplant nurse, teacher, correctional officer, special education case manager)? Give summary @ -No Was smoking cessation discussed for >3mins.? @ -No Was critical care preformed (if so, how long)? @ -No Were there social determinants of health that impacted care today? How? (Homelessness, low income, unemployed, alcoholism, drug addiction, transportation, low edu. Level, literacy, decrease access to med. care, assisted, rehab)? @ -No Was there de-escalation of care discussed even if they declined (Discuss DNR or withdrawal of care, Hospice)? DNR status @ -No What co-morbidities impacted this encounter? (DM, HTN, Smoking, COPD, CAD, Cancer, CVA, ARF, Chemo, Hep., AIDS, mental health diagnosis, sleep apnea, morbid obesity)? @ -Chronic arthritis Was patient admitted / discharged? Hospital course, mention meds given and route, prescriptions, significant lab abnormalities, going to OR and other pertinent info. @ -The patient was seen and evaluated emergency department. Physical exam, the patient was resting in bed without any acute distress. Vital signs were stable. X-rays of the bilateral knees did not show any acute processes or fractures. The patient was offered a dose of Toradol but she stated "I cannot take that with my kidneys." The patient was also offered Tylenol but refused this. The patient did not want any further medications and I did state that there was no need for narcotics at this time. Due to the patient's negative imaging, the patient was stable for discharge. The patient was advised to follow-up with her orthopedic surgeon as previously scheduled. The patient was agreeable to this and was discharged home in stable condition. Undiagnosed new problem with uncertain prognosis? @ -No Drug Therapy requiring intensive monitoring for toxicity (Heparin, Nitro, Insulin, Cardizem)? @ -No Were any procedures done? @ -No Diagnosis/symptom? @ -Bilateral knee contusions Acute, or Chronic, or Acute on Chronic? @ -Acute on chronic Uncomplicated (without systemic symptoms) or Complicated (systemic symptoms)? @ -Uncomplicated Side effects of treatment? @ -No Exacerbation, Progression, or Severe Exacerbation? @ -No Poses a threat to life or bodily function? How? (Chest pain, USA, AR, pneumonia, PE, COPD, DKA, ARF, appy, cholecystitis, CVA, Diverticulitis, Homicidal, Suicidal, threat to staff... and all critical care pts) @ -No Disposition Clinical Impression: Fall, Knee contusion Disposition: HOME SELF-CARE Condition: Stable Instructions (If sedation given, give patient instructions): Knee Pain (ED) Is patient prescribed a controlled substance at d/c from ED?: No Referrals: Matty Brown MD [Primary Care Provider] - 1-2 days Time of Disposition: 05:45
[2022-12-26 06:42] VITALS: BP 107/66; PULSE 67
== END 2022-12-26 06:42 | disposition home or self-care (01) ==
LOC: EC 04:47
DX: S80.02XA Contusion of left knee, initial encounter (principal); S80.01XA Contusion of right knee, initial encounter; I10 Essential (primary) hypertension; J44.9 Chronic obstructive pulmonary disease, unspecified; K21.9 Gastro-esophageal reflux disease without esophagitis; E07.9 Disorder of thyroid, unspecified; F41.9 Anxiety disorder, unspecified; F32.A Depression, unspecified; Z79.890 Hormone replacement therapy; Z79.899 Other long term (current) drug therapy; Z88.1 Allergy status to other antibiotic agents; Z88.2 Allergy status to sulfonamides; Z88.5 Allergy status to narcotic agent; Z88.6 Allergy status to analgesic agent; Z88.8 Allergy status to other drugs, medicaments and biological substances; Z91.030 Bee allergy status; Z91.041 Radiographic dye allergy status; Z91.018 Allergy to other foods; W19.XXXA Unspecified fall, initial encounter
CPT/HCPCS: 99284

== ENCOUNTER 2022-12-28 13:09 | Emergency (ER) | payer MEDICARE, OTHER ==
[2022-12-28 13:32] VITALS: TEMP 97.8
--- NOTE | 2022-12-28 13:32 | ED ---
General Adult HPI - General Source: patient, RN notes reviewed Mode of arrival: EMS Limitations: no limitations - History of Present Illness MD Complaint: Neck pain and knee pain <Sonia Pal - Last Filed: 12/28/22 13:28> <Tato Luque - Last Filed: 12/28/22 15:59> - General Chief complaint: Extremity Problem,Nontraumatic Stated complaint: pain all over Time Seen by Provider: 12/28/22 13:30 - History of Present Illness Initial comments: This is a 72 year old female who presents to the emergency department for pain all over. States that she has pain to the neck and knees and her provider sent in the wrong pain medication, and she is unable to take it. Notes severe arthritis in the knees and she was supposed to have a knee replacement in September, but had to cancel the surgery, as there was nobody to care for her at home while she recovered. While the knee pain is chronic, the neck pain started 3 days ago. Denies any injuries. (Sonia Pal) 72-year-old female presenting to the ED with a chief complaint of neck pain. She states that she has chronic pain of the left knee is due for surgery and has follow-up appointment with her doctor tomorrow for this. States that she has chronic pain due to this and is typically prescribed [place]. States that she was actually sent oxycodone instead. States that this medication makes her off balance. States 2 days ago, due to this medication and feeling off balance she tripped and fell while folding laundry. States that she fell forward and hitting her head on the mattress and hyperflexed her neck. No osseous this time. Patient is not on blood thinners. Denies nausea or vomiting. Since then notes neck pain. Also notes worsening of her left knee pain. No other complaints. (Tato Luque) - Related Data Home Medications Medication Instructions Recorded Confirmed Pantoprazole Sodium [Protonix] 40 mg PO BID 04/09/16 09/21/22 EPINEPHrine [Epipen 2-River] 0.3 mg IM ONCE PRN 11/16/16 09/21/22 Sucralfate [Carafate] 1 gm PO ACHS 12/13/16 09/21/22 Losartan Potassium 50 mg PO BID 09/16/17 09/21/22 diazePAM [Valium] 5 mg PO DAILY PRN 09/16/17 09/21/22 Levothyroxine Sodium [Synthroid] 88 mcg PO DAILY 04/24/18 09/21/22 buPROPion HCL [Wellbutrin SR] 200 mg PO BID 08/11/18 09/21/22 hydroCHLOROthiazide 12.5 mg PO DAILY 09/12/18 09/21/22 Albuterol Sulfate [Proair Hfa] 1 - 2 puff INHALATION RT-Q4H PRN 03/21/19 09/21/22 diphenhydrAMINE [Benadryl] 50 mg PO HS 03/21/19 09/21/22 Ascorbic Acid [Vitamin C] 1,000 mg PO DAILY 12/12/20 09/21/22 Fexofenadine HCl [[place] Allergy] 180 mg PO BID 12/12/20 09/21/22 valACYclovir HCL [Valtrex] 500 mg PO BID 12/12/20 09/21/22 Biotin Gummy 1 tab PO DAILY 06/17/21 09/21/22 HYDROcodone/APAP 7.5-325MG [[place] 1 tab PO BID 06/17/21 09/21/22 7.5-325] Metoprolol Tartrate [Lopressor] 25 mg PO BID 06/17/21 09/21/22 Multivitamin [Multivitamins Adult 1 tab PO DAILY 06/17/21 09/21/22 Gummies] DULoxetine HCL [Cymbalta] 120 mg PO DAILY 09/21/22 09/21/22 Previous Rx's Medication Instructions Recorded Ondansetron Odt [Zofran Odt] 4 mg PO Q8HR PRN #10 tab 09/07/22 Allergies Allergy/AdvReac Type Severity Reaction Status Date / Time atorvastatin [From Lipitor] Allergy Swelling Verified 12/28/22 13:33 buprenorphine [From Butrans] Allergy pain Verified 09/29/22 15:39 carisoprodol [From Soma] Allergy Unknown Verified 09/29/22 15:39 chlorpromazine Allergy Unknown Verified 09/29/22 15:39 [From Thorazine] ciprofloxacin [From Cipro] Allergy Unknown Verified 09/29/22 15:39 clonazepam [From Klonopin] Allergy Unknown Verified 09/29/22 15:39 cyclobenzaprine Allergy Unknown Verified 09/29/22 15:39 [From Flexeril] metoclopramide [From Reglan] Allergy Anaphylaxis Verified 09/29/22 15:39 metronidazole [From Flagyl] Allergy Anaphylaxis Verified 09/29/22 15:39 morphine Allergy Rash/Hives Verified 09/29/22 15:39 naproxen Allergy Unknown Verified 09/29/22 15:39 oxycodone [From OxyContin] Allergy Hallucinati Verified 12/28/22 13:33 ons papaya Allergy Rash/Hives Verified 09/29/22 15:39 prednisone Allergy Anaphylaxis Verified 09/29/22 15:39 prochlorperazine Allergy Anaphylaxis Verified 09/29/22 15:39 [From Compazine] red dye Allergy Rash/Hives Verified 09/29/22 15:39 venom-honey bee Allergy Anaphylaxis Verified 09/29/22 15:39 [bee venom (honey bee)] ketorolac [From Toradol] AdvReac Severe Abdominal Verified 09/29/22 15:39 Pain baclofen AdvReac Twitching Verified 09/29/22 15:39 buspirone [From BuSpar] AdvReac Confusion Verified 09/29/22 15:39 ibuprofen [From Motrin] AdvReac Abdominal Verified 09/29/22 15:39 Pain meperidine [From Demerol] AdvReac Rapid Verified 09/29/22 15:39 Heart Rate Phenothiazines AdvReac Altered Verified 09/29/22 15:39 Mental Status sulfamethoxazole AdvReac Rash/Hives Verified 09/29/22 15:39 [From Bactrim] trimethoprim [From Bactrim] AdvReac Rash/Hives Verified 09/29/22 15:39 Review of Systems ROS Other: All systems not noted in ROS Statement are negative. <Sonia Pal - Last Filed: 12/28/22 13:28> ROS Other: All systems not noted in ROS Statement are negative. <Tato Luque - Last Filed: 12/28/22 15:59> ROS Statement: Those systems with pertinent positive or pertinent negative responses have been documented in the HPI. Past Medical History Past Medical History: Asthma, Cancer, COPD, GERD/Reflux, Hypertension, Pneumonia, Thyroid Disorder Additional Past Medical History / Comment(s): shingles, RT BREAST LUMPECTOMY/ CANCER, THYROID REMOVE, CATARACTS, BRONCHITIS, MONO TEENAGER, LITE CASE OF POLIO AGE 8, MELANOMA SKIN CANCER REMOVED, r shoulder rotator tear History of Any Multi-Drug Resistant Organisms: MRSA Date of last positivie culture/infection: 2009 MDRO Source:: LEFT ULNAR BONE, kidneys Past Surgical History: Appendectomy, Back Surgery, Cholecystectomy, Orthopedic Surgery Additional Past Surgical History / Comment(s): EYE SX FOR LAZY EYE, SX ON TEAR DUCTS, BACK SURGERY MICRO DISC, LT WRIST BROKEN 9 GALLO HAD 13 Surgeries TO CORRECT, left shoulder and humorous shattered from a fall with 2 surgeries to correct, LAPROSCOPIES- BENIGN TUNOR SIZE OF GRAPFRUIT REMOVED AGE 11 OR 1, RT BREAST BX/LUMPECTOMY,LT PINK FINGER SX TO STRAIGHTEN.MELANOMA SKIN CANCER REMOVED. Past Anesthesia/Blood Transfusion Reactions: No Reported Reaction Additional Past Anesthesia/Blood Transfusion Reaction / Comment(s): CLAUSTERPHOBIA Past Psychological History: Anxiety, Depression, PTSD Smoking Status: Never smoker Past Alcohol Use History: None Reported Past Drug Use History: None Reported - Past Family History Mother Family Medical History: Asthma Additional Family Medical History / Comment(s): ETOH/SMOKER Father Family Medical History: Cancer, Liver Disease Additional Family Medical History / Comment(s): ESOPHOGEAL CANCER, ETOH <Sonia Pal - Last Filed: 12/28/22 13:28> General Exam <Sonia Pal - Last Filed: 12/28/22 13:28> General appearance: alert, in no apparent distress Head exam: Present: atraumatic, normocephalic (No Conde sign or raccoon's eyes.) Eye exam: Present: normal appearance Neck exam: Present: other (No midline cervical spinal tenderness to palpation. Left paraspinal cervical tenderness to palpation.) Respiratory exam: Present: normal lung sounds bilaterally Cardiovascular Exam: Present: regular rate, normal rhythm Extremities exam: Present: other (Strength and Sensation equal and intact in bilateral upper and lower extremities. ) Back exam: Present: other (No midline thoracic or lumbar spinal tenderness palpation.) Neurological exam: Present: alert, oriented X3 <Tato Luque - Last Filed: 12/28/22 15:59> - General Exam Comments Initial Comments: Visual Physical Exam Vital signs reviewed General: Well-appearing, nontoxic, no acute distress. Head: Normocephalic, atraumatic Eyes: PERRLA, EOMI ENT: Airway patent Chest: Nonlabored breathing Skin: No visual rash, normal skin tone Neuro: Alert and oriented 3 Musculoskeletal: No gross abnormalities I performed the QuickNote portion of this chart. Signed Sonia Pal PA-C. (Sonia Pal) Course Vital Signs 12/28/22 13:29 Temperature 97.8 F Pulse Rate 73 Respiratory 20 Rate Blood Pressure 144/78 O2 Sat by Pulse 98 Oximetry Medical Decision Making <Tato Luque - Last Filed: 12/28/22 15:59> - Medical Decision Making Was pt. sent in by a medical professional or institution (SHAYLA Lerner, SENIOR SYSTEMS SOFTWARE ENGINEER, urgent care, hospital, or correction...) When possible be specific @ -No Did you speak to anyone other than the patient for history (EMS, parent, family, police, friend...)? What history was obtained from this source @ -No Did you review nursing and triage notes (agree or disagree)? Why? @ -I reviewed and agree with nursing and triage notes Were old charts reviewed (outside hosp., previous admission, EMS record, old EKG, old radiological studies, urgent care reports/EKG's, correction records)? Report findings @ -No old charts were reviewed Differential Diagnosis (chest pain, altered mental status, abdominal pain women, abdominal pain men, vaginal bleeding, weakness, fever, dyspnea, syncope, headache, dizziness, GI bleed, back pain, seizure, CVA, palpatations, mental health, musculoskeletal)? @ -Differential Musculoskeletal Muscular strain, contusion, ligament sprain, fracture, arthritis, septic arthritis, bursitis, cellulitis, muscle spasm, nerve compression, DVT, arterial occlusion, herpes zoster, electrolyte abnormality, tumor.... This is not meant to be in all inclusive list EKG interpreted by me (3pts min.). @ -None X-rays interpreted by me (1pt min.). @ -X-ray of the cervical spine and left knee showed no acute findings. CT interpreted by me (1pt min.). @ -None done U/S interpreted by me (1pt. min.). @ -None done What testing was considered but not performed or refused? (CT, X-rays, U/S, labs)? Why? @ -None What meds were considered but not given or refused? Why? @ -None Did you discuss the management of the patient with other professionals (professionals i.e. , PA, SENIOR SYSTEMS SOFTWARE ENGINEER, lab, RT, psych nurse, social service director, solid waste facility operator, teacher, commissioned security officer, showcase trimmer)? Give summary @ -No Was smoking cessation discussed for >3mins.? @ -No Was critical care preformed (if so, how long)? @ -No Were there social determinants of health that impacted care today? How? (Homelessness, low income, unemployed, alcoholism, drug addiction, transportation, low edu. Level, literacy, decrease access to med. care, skilled nursing, rehab)? @ -No Was there de-escalation of care discussed even if they declined (Discuss DNR or withdrawal of care, Hospice)? DNR status @ -No What co-morbidities impacted this encounter? (DM, HTN, Smoking, COPD, CAD, Cancer, CVA, ARF, Chemo, Hep., AIDS, mental health diagnosis, sleep apnea, morbid obesity)? @ -None Was patient admitted / discharged? Hospital course, mention meds given and route, prescriptions, significant lab abnormalities, going to OR and other pertinent info. @ -Discharge. Imaging here shows no acute findings. Patient had improvement of pain with Dilaudid. Patient notes follow-up with her physician tomorrow advised follow-up with physician as scheduled. Discharged home in stable condition. Discussed return precautions with patient who verbalizes agreement. Undiagnosed new problem with uncertain prognosis? @ -No Drug Therapy requiring intensive monitoring for toxicity (Heparin, Nitro, Insulin, Cardizem)? @ -No Were any procedures done? @ -No Diagnosis/symptom? @ -Neck pain/muscle strain, left knee pain. Acute, or Chronic, or Acute on Chronic? @ -Acute, acute on chronic. Uncomplicated (without systemic symptoms) or Complicated (systemic symptoms)? @ -Uncomplicated Side effects of treatment? @ -No Exacerbation, Progression, or Severe Exacerbation? @ -No Poses a threat to life or bodily function? How? (Chest pain, USA, OR, pneumonia, PE, COPD, DKA, ARF, appy, cholecystitis, CVA, Diverticulitis, Homicidal, Suicidal, threat to staff... and all critical care pts) @ -No (Tato Luque) Disposition <Sonia Pal - Last Filed: 12/28/22 13:28> Is patient prescribed a controlled substance at d/c from ED?: No Time of Disposition: 15:59 <Tato Luque - Last Filed: 12/28/22 15:59> Clinical Impression: Neck pain, Knee pain Disposition: HOME SELF-CARE Condition: Good Instructions (If sedation given, give patient instructions): Cervical Strain (ED), Knee Pain (ED) Additional Instructions: Please return to the Emergency Department if symptoms worsen or any other concerns. Referrals: Matty Brown MD [Primary Care Provider] - 1-2 days
[2022-12-28] MEDS ORDERED: HYDROmorphone 1 MG/ML 1 ML SYRINGE IM STA (14:52)
--- NOTE | 2022-12-28 15:32 | XR ---
EXAMINATION TYPE: XR knee complete LT DATE OF EXAM: 12/28/2022 COMPARISON: 12/26/2022 HISTORY: Pain TECHNIQUE: Three views are submitted. FINDINGS: There is chondrocalcinosis and moderate to severe narrowing of the medial compartment joint with jaclyn inal spurring. Trace suprapatellar fluid collection. There is mild to moderate narrowing patellofemor al joint with marginal spurring. Osseous structures are intact. No acute fracture seen. IMPRESSION: 1. No acute fracture or dislocation. If high clinical concern for fracture correlate with CT scan. 2. Moderate to severe osteoarthritis favored over a deposition arthropathy.
--- NOTE | 2022-12-28 15:34 | XR ---
EXAMINATION TYPE: XR cervical spine comp DATE OF EXAM: 12/28/2022 COMPARISON: NONE HISTORY: Pain TECHNIQUE: Four views are submitted. FINDINGS: The odontoid is intact. There are no compression deformities. The prevertebral soft tissue structur es are within normal limits. A severe multilevel degenerative disc disease with posterior spondylosi s and facet arthropathy. Multilevel foraminal enlargement. Minimal anterolisthesis of C2 on C3. IMPRESSION: 1. Severe multilevel degenerative disc disease and facet arthropathy with multilevel foraminal encroa chment.. Recommend MRI follow-up
[2022-12-28 16:33] VITALS: BP 156/88; PULSE 78; RESP 16
== END 2022-12-28 16:45 | disposition home or self-care (01) ==
LOC: EC 13:09
DX: M25.562 Pain in left knee (principal); J44.9 Chronic obstructive pulmonary disease, unspecified; K21.9 Gastro-esophageal reflux disease without esophagitis; I10 Essential (primary) hypertension; E07.9 Disorder of thyroid, unspecified; F41.9 Anxiety disorder, unspecified; F32.A Depression, unspecified; Z88.2 Allergy status to sulfonamides; Z88.8 Allergy status to other drugs, medicaments and biological substances; Z88.1 Allergy status to other antibiotic agents; Z91.018 Allergy to other foods; Z79.890 Hormone replacement therapy; Z79.899 Other long term (current) drug therapy
CPT/HCPCS: 72050; 73562; 99284; 96372; J1170

== ENCOUNTER 2023-01-26 02:50 | Emergency (ER) | payer MEDICARE, OTHER ==
[2023-01-26 02:59] VITALS: BP 143/69; PULSE 65; RESP 18; TEMP 98
[2023-01-26] MEDS ORDERED: HYDROmorphone 0.5 MG/0.5 ML SYRINGE IVP STA (04:04)
[2023-01-26] MEDS ORDERED: HYDROmorphone 1 MG/ML 1 ML SYRINGE IM STA (04:06)
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
[2023-01-26] MEDS ORDERED: HYDROmorphone 0.5 MG/0.5 ML SYRINGE IM STA (06:53)
[2023-01-26] MEDS ORDERED: diphenhydrAMINE 50 MG/ML 1 ML VIAL IM STA (06:53)
--- NOTE | 2023-01-26 06:53 | XR ---
EXAM: XR Bilateral Knees, 3 Views CLINICAL HISTORY: ITS.REASON XR Reason: pain TECHNIQUE: Three views of the bilateral knees. COMPARISON: No relevant prior studies available. FINDINGS: Bones/joints: No acute fracture or dislocation. Tricompartmental osteoarthritis and chondrocalcinosis of the bilateral knees. Benign- appearing bony exostosis of the proximal fibular diaphysis on the left. Soft tissues: No definite effusion. IMPRESSION: No acute fracture or dislocation. Tricompartmental osteoarthritis and chondrocalcinosis of the bilateral knees.
== END 2023-01-26 07:32 | disposition home or self-care (01) ==
LOC: EC 02:50
DX: M25.561 Pain in right knee (principal); M25.562 Pain in left knee; I10 Essential (primary) hypertension; J44.9 Chronic obstructive pulmonary disease, unspecified; K21.9 Gastro-esophageal reflux disease without esophagitis; F41.9 Anxiety disorder, unspecified; E07.9 Disorder of thyroid, unspecified; F32.A Depression, unspecified; Z79.890 Hormone replacement therapy; Z79.899 Other long term (current) drug therapy; Z88.1 Allergy status to other antibiotic agents; Z88.2 Allergy status to sulfonamides; Z88.5 Allergy status to narcotic agent; Z88.6 Allergy status to analgesic agent; Z88.8 Allergy status to other drugs, medicaments and biological substances; Z91.030 Bee allergy status; Z91.041 Radiographic dye allergy status; Z91.018 Allergy to other foods
CPT/HCPCS: 99284 ×2; 96374; 96372 ×4; 73562; J1200; J1170 ×2

== ENCOUNTER 2023-02-10 07:37 | Emergency (ER) | payer MEDICARE, OTHER ==
[2023-02-10 07:51] VITALS: TEMP 98.6
[2023-02-10] MEDS ORDERED: HYDROmorphone 0.5 MG/0.5 ML SYRINGE IVP STA ×2 (07:51→10:04)
[2023-02-10 08:05] VITALS: RESP 16
--- NOTE | 2023-02-10 08:52 | ED ---
General Adult HPI - General Chief complaint: Extremity Problem,Nontraumatic Stated complaint: Abd pain Time Seen by Provider: 02/10/23 07:40 Source: patient Mode of arrival: EMS Limitations: no limitations - History of Present Illness Initial comments: 72-year-old female past medical history of chronic pain, COPD, thyroid disorder who presents to the emergency department reporting left groin pain. States that it's been going on for the past several months however has gotten so bad to the point where she cannot ambulate. This morning she was having extreme difficulty and therefore required EMS assistance. She reports that her left suprapubic region is extremity tenderness to touch and occasionally will feel bulge. She denies any urinary complaints to include dysuria, hematuria or difficulty voiding. No diarrhea, constitutional black or bloody stools. She is in a pain contract. Pain management doctor is Dr. Lyles. She takes [place] daily. States that this has not been enough to control her pain. Patient was seen here a couple of days ago for a fall. States that the pain in her groin started before this fall. She denies any new injuries. She denies any numbness, tingling or weakness in her extremities. No other alleviating, precipitating or modifying factors - Related Data Home Medications Medication Instructions Recorded Confirmed Pantoprazole Sodium [Protonix] 40 mg PO BID 04/09/16 09/21/22 EPINEPHrine [Epipen 2-River] 0.3 mg IM ONCE PRN 11/16/16 09/21/22 Sucralfate [Carafate] 1 gm PO ACHS 12/13/16 09/21/22 Losartan Potassium 50 mg PO BID 09/16/17 09/21/22 diazePAM [Valium] 5 mg PO DAILY PRN 09/16/17 09/21/22 Levothyroxine Sodium [Synthroid] 88 mcg PO DAILY 04/24/18 09/21/22 buPROPion HCL [Wellbutrin SR] 200 mg PO BID 08/11/18 09/21/22 hydroCHLOROthiazide 12.5 mg PO DAILY 09/12/18 09/21/22 Albuterol Sulfate [Proair Hfa] 1 - 2 puff INHALATION RT-Q4H PRN 03/21/19 09/21/22 diphenhydrAMINE [Benadryl] 50 mg PO HS 03/21/19 09/21/22 Ascorbic Acid [Vitamin C] 1,000 mg PO DAILY 12/12/20 09/21/22 Fexofenadine HCl [[place] Allergy] 180 mg PO BID 12/12/20 09/21/22 valACYclovir HCL [Valtrex] 500 mg PO BID 12/12/20 09/21/22 Biotin Gummy 1 tab PO DAILY 06/17/21 09/21/22 HYDROcodone/APAP 7.5-325MG [[place] 1 tab PO BID 06/17/21 09/21/22 7.5-325] Metoprolol Tartrate [Lopressor] 25 mg PO BID 06/17/21 09/21/22 Multivitamin [Multivitamins Adult 1 tab PO DAILY 06/17/21 09/21/22 Gummies] DULoxetine HCL [Cymbalta] 120 mg PO DAILY 09/21/22 09/21/22 Previous Rx's Medication Instructions Recorded Ondansetron Odt [Zofran Odt] 4 mg PO Q8HR PRN #10 tab 09/07/22 Albuterol Inhaler [Ventolin Hfa 2 puff INHALATION Q6H PRN #1 each 02/06/23 Inhaler] methocarbamoL [Robaxin] 500 mg PO TID PRN #25 tab 02/10/23 Allergies Allergy/AdvReac Type Severity Reaction Status Date / Time atorvastatin [From Lipitor] Allergy Swelling Verified 02/06/23 12:52 buprenorphine [From Butrans] Allergy pain Verified 02/06/23 12:52 carisoprodol [From Soma] Allergy Unknown Verified 02/06/23 12:52 chlorpromazine Allergy Unknown Verified 02/06/23 12:52 [From Thorazine] ciprofloxacin [From Cipro] Allergy Unknown Verified 02/06/23 12:52 clonazepam [From Klonopin] Allergy Unknown Verified 02/06/23 12:52 cyclobenzaprine Allergy Unknown Verified 02/06/23 12:52 [From Flexeril] metoclopramide [From Reglan] Allergy Anaphylaxis Verified 02/06/23 12:52 metronidazole [From Flagyl] Allergy Anaphylaxis Verified 02/06/23 12:52 morphine Allergy Rash/Hives Verified 02/06/23 12:52 naproxen Allergy Unknown Verified 02/06/23 12:52 oxycodone [From OxyContin] Allergy Hallucinati Verified 02/06/23 12:52 ons papaya Allergy Rash/Hives Verified 02/06/23 12:52 prednisone Allergy Anaphylaxis Verified 02/06/23 12:52 prochlorperazine Allergy Anaphylaxis Verified 02/06/23 12:52 [From Compazine] red dye Allergy Rash/Hives Verified 02/06/23 12:52 venom-honey bee Allergy Anaphylaxis Verified 02/06/23 12:52 [bee venom (honey bee)] ketorolac [From Toradol] AdvReac Severe Abdominal Verified 02/06/23 12:52 Pain baclofen AdvReac Twitching Verified 02/06/23 12:52 buspirone [From BuSpar] AdvReac Confusion Verified 02/06/23 12:52 ibuprofen [From Motrin] AdvReac Abdominal Verified 02/06/23 12:52 Pain meperidine [From Demerol] AdvReac Rapid Verified 02/06/23 12:52 Heart Rate Phenothiazines AdvReac Altered Verified 02/06/23 12:52 Mental Status sulfamethoxazole AdvReac Rash/Hives Verified 02/06/23 12:52 [From Bactrim] trimethoprim [From Bactrim] AdvReac Rash/Hives Verified 02/06/23 12:52 Review of Systems ROS Statement: Those systems with pertinent positive or pertinent negative responses have been documented in the HPI. ROS Other: All systems not noted in ROS Statement are negative. Past Medical History Past Medical History: Asthma, Cancer, COPD, GERD/Reflux, Hypertension, Pneumonia, Thyroid Disorder Additional Past Medical History / Comment(s): shingles, RT BREAST LUMPECTOMY/CANCER, THYROID REMOVE, CATARACTS, BRONCHITIS, MONO TEENAGER, LITE CASE OF POLIO AGE 8, MELANOMA SKIN CANCER REMOVED, r shoulder rotator tear History of Any Multi-Drug Resistant Organisms: MRSA Date of last positivie culture/infection: 2009 MDRO Source:: LEFT ULNAR BONE, kidneys Past Surgical History: Appendectomy, Back Surgery, Cholecystectomy, Orthopedic Surgery Additional Past Surgical History / Comment(s): EYE SX FOR LAZY EYE, SX ON TEAR DUCTS, BACK SURGERY MICRO DISC, LT WRIST BROKEN 9 GALLO HAD [address], left shoulder and humorous shattered from a fall with 2 surgeries to correct, LAPROSCOPIES- BENIGN TUNOR SIZE OF GRAPFRUIT REMOVED AGE 11 OR 1, RT BREAST BX/LUMPECTOMY,LT PINK FINGER SX TO STRAIGHTEN.MELANOMA SKIN CANCER REMOVED. Past Anesthesia/Blood Transfusion Reactions: No Reported Reaction Additional Past Anesthesia/Blood Transfusion Reaction / Comment(s): CLAUSTERPHOBIA Past Psychological History: Anxiety, Depression, PTSD Smoking Status: Never smoker Past Alcohol Use History: None Reported Past Drug Use History: None Reported - Past Family History Mother Family Medical History: Asthma Additional Family Medical History / Comment(s): ETOH/SMOKER Father Family Medical History: Cancer, Liver Disease Additional Family Medical History / Comment(s): ESOPHOGEAL CANCER, ETOH General Exam Limitations: no limitations General appearance: alert, in no apparent distress Head exam: Present: atraumatic, normocephalic, normal inspection Eye exam: Present: normal appearance, PERRL, EOMI. Absent: scleral icterus, conjunctival injection, periorbital swelling ENT exam: Present: normal exam, mucous membranes moist Neck exam: Present: normal inspection. Absent: tenderness, meningismus, lymphadenopathy Respiratory exam: Present: normal lung sounds bilaterally. Absent: respiratory distress, wheezes, rales, rhonchi, stridor Cardiovascular Exam: Present: regular rate, normal rhythm, normal heart sounds. Absent: systolic murmur, diastolic murmur, rubs, gallop, clicks GI/Abdominal exam: Present: soft, normal bowel sounds, other (Tenderness to palpation of the left superior pubic rami). Absent: distended, tenderness, guarding, rebound, rigid Extremities exam: Present: normal inspection, full ROM, normal capillary refill. Absent: tenderness, pedal edema, joint swelling, calf tenderness Back exam: Present: normal inspection Neurological exam: Present: alert, oriented X3, CN II-XII intact Psychiatric exam: Present: normal affect, normal mood Skin exam: Present: warm, dry, intact, normal color. Absent: rash Course Vital Signs 02/10/23 02/10/23 02/10/23 07:42 08:03 09:00 Temperature 98.6 F Pulse Rate 78 85 68 Respiratory 20 16 16 Rate Blood Pressure 146/89 140/80 150/80 O2 Sat by Pulse 97 98 98 Oximetry 02/10/23 10:28 Temperature Pulse Rate 72 Respiratory 16 Rate Blood Pressure 152/68 O2 Sat by Pulse 98 Oximetry Medical Decision Making - Medical Decision Making Was pt. sent in by a medical professional or institution (SHAYLA Lerner, [employer], urgent care, hospital, or correction...) When possible be specific @ -No Did you speak to anyone other than the patient for history (EMS, parent, family, police, friend...)? What history was obtained from this source @ -Spoke with EMS for history Did you review nursing and triage notes (agree or disagree)? Why? @ -I reviewed and agree with nursing and triage notes Were old charts reviewed (outside hosp., previous admission, EMS record, old EKG, old radiological studies, urgent care reports/EKG's, correction records)? Report findings @ -I reviewed the patient's ER visit from earlier this week for the patient was seen for knee pain Differential Diagnosis (chest pain, altered mental status, abdominal pain women, abdominal pain men, vaginal bleeding, weakness, fever, dyspnea, syncope, headache, dizziness, GI bleed, back pain, seizure, CVA, palpatations, mental health, musculoskeletal)? @ -Differential Musculoskeletal Muscular strain, contusion, ligament sprain, fracture, arthritis, septic arthritis, bursitis, cellulitis, muscle spasm, nerve compression, DVT, arterial occlusion, herpes zoster, electrolyte abnormality, tumor.... This is not meant to be in all inclusive list EKG interpreted by me (3pts min.). @ -Not done X-rays interpreted by me (1pt min.). @ -Yes and demonstrates arthritis of the right hip CT interpreted by me (1pt min.). @ -None done U/S interpreted by me (1pt. min.). @ -None done What testing was considered but not performed or refused? (CT, X-rays, U/S, labs)? Why? @ -None What meds were considered but not given or refused? Why? @ -None Did you discuss the management of the patient with other professionals (professionals i.e. SHAYLA Lerner, [employer]GE MATE, lab, RT, psych nurse, social service worker, dining server, teacher, minesweeping officer, caser up)? Give summary @ -No Was smoking cessation discussed for >3mins.? @ -No Was critical care preformed (if so, how long)? @ -No Were there social determinants of health that impacted care today? How? (Homelessness, low income, unemployed, alcoholism, drug addiction, transportation, low edu. Level, literacy, decrease access to med. care, fci, rehab)? @ -No Was there de-escalation of care discussed even if they declined (Discuss DNR or withdrawal of care, Hospice)? DNR status @ -No What co-morbidities impacted this encounter? (DM, HTN, Smoking, COPD, CAD, Cancer, CVA, ARF, Chemo, Hep., AIDS, mental health diagnosis, sleep apnea, morbid obesity)? @ -Chronic pain Was patient admitted / discharged? Hospital course, mention meds given and route, prescriptions, significant lab abnormalities, going to OR and other pertinent info. @ -Upon arrival patient was placed into room 17. History and physical exam was performed. Patient states that the only medication she can tolerate that will take away her pain is Dilaudid. She was given 0.5 mg and taken for an x-ray of her hip and pelvis. Results of the imaging are discussed with the patient. Patient stable for discharge home at this time. Continue taking her Long [place] may benefit from taking a muscle relaxer however she is instructed to not take the [place] and muscle relaxer at same time. Patient is ambulatory now. She will be discharged and is instructed to follow-up with primary care doctor for further management. Patient agreeable and discharged in stable condition Undiagnosed new problem with uncertain prognosis? @ -No Drug Therapy requiring intensive monitoring for toxicity (Heparin, Nitro, Insulin, Cardizem)? @ -No Were any procedures done? @ -No Diagnosis/symptom? @ -Acute left pelvic pain with suspected muscle strain Acute, or Chronic, or Acute on Chronic? @ -Acute Uncomplicated (without systemic symptoms) or Complicated (systemic symptoms)? @ -Uncomplicated Side effects of treatment? @ -No Exacerbation, Progression, or Severe Exacerbation? @ -No Poses a threat to life or bodily function? How? (Chest pain, USA, VT, pneumonia, PE, COPD, DKA, ARF, appy, cholecystitis, CVA, Diverticulitis, Homicidal, Suicidal, threat to staff... and all critical care pts) @ -No - Lab Data Lab Results 02/10/23 Range/Units 09:30 Urine Color Light Yellow Urine Appearance Clear (Clear) Urine pH 7.5 (5.0-8.0) Ur Specific [place] 1.019 (1.001-1.035) Urine Protein Negative (Negative) Urine Glucose (UA) Negative (Negative) Urine Ketones Negative (Negative) Urine Blood Negative (Negative) Urine Nitrite Negative (Negative) Urine Bilirubin Negative (Negative) Urine Urobilinogen <2.0 (<2.0) mg/dL Ur Leukocyte Esterase Moderate H (Negative) Urine RBC 1 (0-5) /hpf Urine WBC 9 H (0-5) /hpf Ur Squamous Epith Cells 1 (0-4) /hpf Urine Mucus Rare H (None) /hpf Disposition Clinical Impression: Left groin pain Disposition: HOME SELF-CARE Condition: Stable Instructions (If sedation given, give patient instructions): Groin Pain (ED) Additional Instructions: Please follow-up with your doctor and pain management physician for further management of your symptoms Prescriptions: methocarbamoL [Robaxin] 500 mg PO TID PRN #25 tab PRN Reason: muscle spasms Is patient prescribed a controlled substance at d/c from ED?: No Referrals: Matty Brown MD [Primary Care Provider] - 1-2 days Time of Disposition: 09:24
--- NOTE | 2023-02-10 08:59 | XR ---
EXAMINATION TYPE: XR pelvis AP view DATE OF EXAM: 02/10/2023 Comparison: None Clinical History: 72-year-old female groin pain Findings: Scattered calcifications in the soft tissues on both sides, likely phleboliths or heterotopic ossific ations. There is moderate degenerative change of the right hip with prominent marginal spurring. No a cute fracture, subluxation, or dislocation. Impression: Moderate right hip OA. No acute osseous abnormality seen.
[2023-02-10 09:42] LABS: Appearance,Urine Clear (Clear); Bilirubin,Urine Negative (Negative); Blood,Urine Negative (Negative); Color,Urine Light Yellow; Glucose,Urine (UA) Negative (Negative); Ketones,Urine Negative (Negative); Leukocyte Esterase,Urine Moderate (Negative); Mucus,Urine Rare /hpf; Nitrite,Urine Negative (Negative); PH, Urine 7.5 (5.0-8.0); Protein,Urine Negative (Negative); RBC,Urine 1 /hpf (0-5); Specific Gravity,Urine 1.019 (1.001-1.035); Squamous Epithelial Cell,Urine 1 /hpf (0-4); Urobilinogen,Urine <2.0 mg/dL (<2.0); WBC,Urine 9 /hpf (0-5)
[2023-02-10 10:31] VITALS: BP 152/68; PULSE 72
== END 2023-02-10 10:29 | disposition home or self-care (01) ==
LOC: EC 07:37
DX: R10.32 Left lower quadrant pain (principal); I10 Essential (primary) hypertension; E07.9 Disorder of thyroid, unspecified; K21.9 Gastro-esophageal reflux disease without esophagitis; J44.9 Chronic obstructive pulmonary disease, unspecified; F41.9 Anxiety disorder, unspecified; F32.A Depression, unspecified; Z79.890 Hormone replacement therapy; Z79.899 Other long term (current) drug therapy; Z88.5 Allergy status to narcotic agent; Z88.6 Allergy status to analgesic agent; Z88.8 Allergy status to other drugs, medicaments and biological substances; Z88.2 Allergy status to sulfonamides; Z88.1 Allergy status to other antibiotic agents; Z91.030 Bee allergy status; Z91.041 Radiographic dye allergy status; Z91.018 Allergy to other foods
CPT/HCPCS: 81001; 72170; 99284; 96374; 96376; J1170

== ENCOUNTER 2023-03-02 09:26 | Emergency (ER) | payer MEDICARE, OTHER ==
[2023-03-02 09:43] VITALS: RESP 18
[2023-03-02] MEDS ORDERED: HYDROmorphone 0.5 MG/0.5 ML SYRINGE IM STA (10:01)
--- NOTE | 2023-03-02 11:24 | XR ---
EXAMINATION TYPE: XR knee complete LT DATE OF EXAM: 03/02/2023 COMPARISON: 02/06/2023 HISTORY: Atraumatic pain x2 days TECHNIQUE: 3 view left knee FINDINGS: There is narrowing of the medial compartment joint space. Medial and lateral meniscal calci fication is present. Tiny medial tibial plateau spur is present. Some medial femoral condylar spurrin g is present. No joint effusion is evident. Posterior-inferior patellar spur is present. No significa nt interval change is evident Follow up exams can be performed 7-10 days from acute trauma for continued pain. IMPRESSION: 1. Moderate degenerative changes left knee
--- NOTE | 2023-03-02 11:46 | ED ---
General Adult HPI - General Chief complaint: Extremity Injury, Lower Stated complaint: Lt knee pain Time Seen by Provider: 03/02/23 09:29 Source: patient, EMS, RN notes reviewed, old records reviewed Mode of arrival: EMS Limitations: no limitations - History of Present Illness Initial comments: Patient is a 72-year-old female presents emergency Department chronic left knee pain. Has a history of significant arthritis of the left knee. History for replacement however he is having issues with her surgeon. Presents for sudden onset of worsening pain and left knee. States was instructed sensation that radiated him. Apparently from the knee. Atraumatic. Did not fall. Presents for further evaluation. Is on [place] 7.5 at home. Denies any neurosensory deficits. Has no other acute complaints at this time. - Related Data Home Medications Medication Instructions Recorded Confirmed Pantoprazole Sodium [Protonix] 40 mg PO BID 04/09/16 09/21/22 EPINEPHrine [Epipen 2-River] 0.3 mg IM ONCE PRN 11/16/16 09/21/22 Sucralfate [Carafate] 1 gm PO ACHS 12/13/16 09/21/22 Losartan Potassium 50 mg PO BID 09/16/17 09/21/22 diazePAM [Valium] 5 mg PO DAILY PRN 09/16/17 09/21/22 Levothyroxine Sodium [Synthroid] 88 mcg PO DAILY 04/24/18 09/21/22 buPROPion HCL [Wellbutrin SR] 200 mg PO BID 08/11/18 09/21/22 hydroCHLOROthiazide 12.5 mg PO DAILY 09/12/18 09/21/22 Albuterol Sulfate [Proair Hfa] 1 - 2 puff INHALATION RT-Q4H PRN 03/21/19 09/21/22 diphenhydrAMINE [Benadryl] 50 mg PO HS 03/21/19 09/21/22 Ascorbic Acid [Vitamin C] 1,000 mg PO DAILY 12/12/20 09/21/22 Fexofenadine HCl [[place] Allergy] 180 mg PO BID 12/12/20 09/21/22 valACYclovir HCL [Valtrex] 500 mg PO BID 12/12/20 09/21/22 Biotin Gummy 1 tab PO DAILY 06/17/21 09/21/22 HYDROcodone/APAP 7.5-325MG [[place] 1 tab PO BID 06/17/21 09/21/22 7.5-325] Metoprolol Tartrate [Lopressor] 25 mg PO BID 06/17/21 09/21/22 Multivitamin [Multivitamins Adult 1 tab PO DAILY 06/17/21 09/21/22 Gummies] DULoxetine HCL [Cymbalta] 120 mg PO DAILY 09/21/22 09/21/22 Previous Rx's Medication Instructions Recorded Ondansetron Odt [Zofran Odt] 4 mg PO Q8HR PRN #10 tab 09/07/22 Albuterol Inhaler [Ventolin Hfa 2 puff INHALATION Q6H PRN #1 each 02/06/23 Inhaler] methocarbamoL [Robaxin] 500 mg PO TID PRN #25 tab 02/10/23 Allergies Allergy/AdvReac Type Severity Reaction Status Date / Time atorvastatin [From Lipitor] Allergy Swelling Verified 03/02/23 09:41 buprenorphine [From Butrans] Allergy pain Verified 03/02/23 09:41 carisoprodol [From Soma] Allergy Unknown Verified 03/02/23 09:41 chlorpromazine Allergy Unknown Verified 03/02/23 09:41 [From Thorazine] ciprofloxacin [From Cipro] Allergy Unknown Verified 03/02/23 09:41 clonazepam [From Klonopin] Allergy Unknown Verified 03/02/23 09:41 cyclobenzaprine Allergy Unknown Verified 03/02/23 09:41 [From Flexeril] metoclopramide [From Reglan] Allergy Anaphylaxis Verified 03/02/23 09:41 metronidazole [From Flagyl] Allergy Anaphylaxis Verified 03/02/23 09:41 morphine Allergy Rash/Hives Verified 03/02/23 09:41 naproxen Allergy Unknown Verified 03/02/23 09:41 oxycodone [From OxyContin] Allergy Hallucinati Verified 03/02/23 09:41 ons papaya Allergy Rash/Hives Verified 03/02/23 09:41 prednisone Allergy Anaphylaxis Verified 03/02/23 09:41 prochlorperazine Allergy Anaphylaxis Verified 03/02/23 09:41 [From Compazine] red dye Allergy Rash/Hives Verified 03/02/23 09:41 venom-honey bee Allergy Anaphylaxis Verified 03/02/23 09:41 [bee venom (honey bee)] ketorolac [From Toradol] AdvReac Severe Abdominal Verified 03/02/23 09:41 Pain baclofen AdvReac Twitching Verified 03/02/23 09:41 buspirone [From BuSpar] AdvReac Confusion Verified 03/02/23 09:41 ibuprofen [From Motrin] AdvReac Abdominal Verified 03/02/23 09:41 Pain meperidine [From Demerol] AdvReac Rapid Verified 03/02/23 09:41 Heart Rate Phenothiazines AdvReac Altered Verified 03/02/23 09:41 Mental Status sulfamethoxazole AdvReac Rash/Hives Verified 03/02/23 09:41 [From Bactrim] trimethoprim [From Bactrim] AdvReac Rash/Hives Verified 03/02/23 09:41 Review of Systems ROS Statement: Those systems with pertinent positive or pertinent negative responses have been documented in the HPI. Review of Systems: CONST: Denies fever EYES: Denies blurry vision ENT: Denies nasal congestion C/V: Denies Chest pain RESP: Denies shortness of breath GI: Denies abdominal pain : Denies dysuria SKIN: Denies rash. MSK: Endorses left knee pain NEURO: Denies headache ROS Other: All systems not noted in ROS Statement are negative. Past Medical History Past Medical History: Asthma, Cancer, COPD, GERD/Reflux, Hypertension, Pneumonia, Thyroid Disorder Additional Past Medical History / Comment(s): shingles, RT BREAST LUMPECTOMY/CANCER, THYROID REMOVE, CATARACTS, BRONCHITIS, MONO TEENAGER, LITE CASE OF POLIO AGE 8, MELANOMA SKIN CANCER REMOVED, r shoulder rotator tear History of Any Multi-Drug Resistant Organisms: MRSA Date of last positivie culture/infection: 2009 MDRO Source:: LEFT ULNAR BONE, kidneys Past Surgical History: Appendectomy, Back Surgery, Cholecystectomy, Orthopedic Surgery Additional Past Surgical History / Comment(s): EYE SX FOR LAZY EYE, SX ON TEAR DUCTS, BACK SURGERY MICRO DISC, LT WRIST BROKEN 9 GALLO HAD 13 Surgeries TO CORRECT, left shoulder and humorous shattered from a fall with 2 surgeries to correct, LAPROSCOPIES- BENIGN TUNOR SIZE OF GRAPFRUIT REMOVED AGE 11 OR 1, RT BREAST BX/LUMPECTOMY,LT PINK FINGER SX TO STRAIGHTEN.MELANOMA SKIN CANCER REMOVED. Past Anesthesia/Blood Transfusion Reactions: No Reported Reaction Additional Past Anesthesia/Blood Transfusion Reaction / Comment(s): CLAUSTERPHOBIA Past Psychological History: Anxiety, Depression, PTSD Smoking Status: Never smoker Past Alcohol Use History: None Reported Past Drug Use History: None Reported - Past Family History Mother Family Medical History: Asthma Additional Family Medical History / Comment(s): ETOH/SMOKER Father Family Medical History: Cancer, Liver Disease Additional Family Medical History / Comment(s): ESOPHOGEAL CANCER, ETOH General Exam - General Exam Comments Initial Comments: General: Appears in no acute distress. HEAD: Normal with no signs of head trauma. EYES: EOMI. ENT: Hearing grossly intact. RESPIRATORY: No respiratory distress. C/V: Regular rate and rhythm. ABD: Abdomen is nondistended. EXT: Left knee is enlarged likely secondary to chronic osteoarthritis. No focal tenderness but generalized tenderness. Neurovascular intact. Normal range of motion for the patient. SKIN: No rashes or lesions observed on exposed skin. NEURO: Alert and oriented. Limitations: no limitations Course Vital Signs 03/02/23 03/02/23 09:33 10:34 Temperature 98.8 F Pulse Rate 65 61 Respiratory 18 18 Rate Blood Pressure 130/61 122/63 O2 Sat by Pulse 100 99 Oximetry Medical Decision Making - Medical Decision Making Was pt. sent in by a medical professional or institution (SHAYLA Lerner, STATE ASSESSED PROPERTIES DIRECTOR, urgent care, hospital, or alf...) When possible be specific @ -No Did you speak to anyone other than the patient for history (EMS, parent, family, police, friend...)? What history was obtained from this source @ -No Did you review nursing and triage notes (agree or disagree)? Why? @ -I reviewed and agree with nursing and triage notes Were old charts reviewed (outside hosp., previous admission, EMS record, old EKG, old radiological studies, urgent care reports/EKG's, alf records)? Report findings @ -No old charts were reviewed Differential Diagnosis (chest pain, altered mental status, abdominal pain women, abdominal pain men, vaginal bleeding, weakness, fever, dyspnea, syncope, headache, dizziness, GI bleed, back pain, seizure, CVA, palpatations, mental health, musculoskeletal)? @ -Differential Musculoskeletal Muscular strain, contusion, ligament sprain, fracture, arthritis, septic arthritis, bursitis, cellulitis, muscle spasm, nerve compression, DVT, arterial occlusion, herpes zoster, electrolyte abnormality, tumor.... This is not meant to be in all inclusive list EKG interpreted by me (3pts min.). @ -None done X-rays interpreted by me (1pt min.). @ -Left knee x-ray shows osteoarthritis. No obvious traumatic injury. CT interpreted by me (1pt min.). @ -None done U/S interpreted by me (1pt. min.). @ -None done What testing was considered but not performed or refused? (CT, X-rays, U/S, labs)? Why? @ -None What meds were considered but not given or refused? Why? @ -None Did you discuss the management of the patient with other professionals (professionals i.e. , PA, STATE ASSESSED PROPERTIES DIRECTOR, lab, RT, psych nurse, social work job titles, corporate lawyer, teacher, chief technical officer, returned case inspector)? Give summary @ -No Was smoking cessation discussed for >3mins.? @ -No Was critical care preformed (if so, how long)? @ -No Were there social determinants of health that impacted care today? How? (Homelessness, low income, unemployed, alcoholism, drug addiction, transportation, low edu. Level, literacy, decrease access to med. care, fpc, rehab)? @ -No Was there de-escalation of care discussed even if they declined (Discuss DNR or withdrawal of care, Hospice)? DNR status @ -No What co-morbidities impacted this encounter? (DM, HTN, Smoking, COPD, CAD, Cancer, CVA, ARF, Chemo, Hep., AIDS, mental health diagnosis, sleep apnea, morbid obesity)? @ -Chronic left knee pain secondary to osteoarthritis pending surgery Was patient admitted / discharged? Hospital course, mention meds given and route, prescriptions, significant lab abnormalities, going to OR and other pertinent info. @ -Based on the patient's presentation and physical exam, presents with acute on chronic left knee pain. I do suspect this is likely her foster arthritis causing the pain as it was atraumatic we will obtain an x-ray. She'll be given pain medications. Vital signs within acceptable limits. Exam unremarkable. Patient was in agreement this plan. X-ray shows osteoarthritis but no evidence of acute injury. I discussed results with the patient. She'll be discharged home at this time. Strict return precautions discussed. She will follow-up with her surgeon. I instructed the patient to follow up with their PCP in the next 1-3 days. I explained that the patient should return to the emergency department if they experience any worsening symptoms. Strict return precautions were discussed with the patient. The patient expressed understanding of these instructions. I answered all questions that the patient had. The patient was discharged home in good condition with their prescriptions and follow up information. Undiagnosed new problem with uncertain prognosis? @ -No Drug Therapy requiring intensive monitoring for toxicity (Heparin, Nitro, Insulin, Cardizem)? @ -No Were any procedures done? @ -No Diagnosis/symptom? @ -Acute on chronic left knee pain secondary to osteoarthritis Acute, or Chronic, or Acute on Chronic? @ -Acute Uncomplicated (without systemic symptoms) or Complicated (systemic symptoms)? @ -Uncomplicated Side effects of treatment? @ -No Exacerbation, Progression, or Severe Exacerbation? @ -No Poses a threat to life or bodily function? How? (Chest pain, [place], [place], pneumonia, PE, COPD, DKA, ARF, appy, cholecystitis, CVA, Diverticulitis, Homicidal, Suicidal, threat to staff... and all critical care pts) @ -No Disposition Clinical Impression: Knee pain, left, Chronic pain, Osteoarthritis Disposition: HOME SELF-CARE Condition: Good Instructions (If sedation given, give patient instructions): Knee Pain (ED) Is patient prescribed a controlled substance at d/c from ED?: No Referrals: Matty Brown MD [Primary Care Provider] - 1-2 days Time of Disposition: 11:45
[2023-03-02 12:48] VITALS: BP 137/80; PULSE 65; TEMP 97.7
== END 2023-03-02 12:28 | disposition home or self-care (01) ==
LOC: EC 09:26
DX: G89.29 Other chronic pain (principal); M17.12 Unilateral primary osteoarthritis, left knee; I10 Essential (primary) hypertension; J44.9 Chronic obstructive pulmonary disease, unspecified; F32.A Depression, unspecified; F41.9 Anxiety disorder, unspecified; K21.9 Gastro-esophageal reflux disease without esophagitis; E07.9 Disorder of thyroid, unspecified; Z79.890 Hormone replacement therapy; Z79.899 Other long term (current) drug therapy; Z88.1 Allergy status to other antibiotic agents; Z88.2 Allergy status to sulfonamides; Z88.5 Allergy status to narcotic agent; Z88.6 Allergy status to analgesic agent; Z88.8 Allergy status to other drugs, medicaments and biological substances; Z91.030 Bee allergy status; Z90.49 Acquired absence of other specified parts of digestive tract; Z91.018 Allergy to other foods; Z91.041 Radiographic dye allergy status
CPT/HCPCS: 73562; 99284; 96372; J1170

== ENCOUNTER 2023-03-22 15:21 | Emergency (ER) | payer MEDICARE, OTHER ==
--- NOTE | 2023-03-22 15:40 | ED ---
Lower Extremity Injury HPI - General Source: patient, family, EMS, RN notes reviewed Mode of arrival: EMS Limitations: physical limitation <Andrés John - Last Filed: 03/22/23 15:39> - General Source: RN notes reviewed, old records reviewed - History of Present Illness MD Complaint: knee injury, fall -: hour(s) Injury: Knee: Left Type of Injury: hyperextension, hyperflexion Place: home Severity: severe Severity scale (1-10): 8 Improves With: nothing Worsens With: nothing Context: fall Associated Symptoms: swelling Treatments Prior to Arrival: splint (0) <Noah Martinez - Last Filed: 03/27/23 20:36> - General Chief Complaint: Extremity Injury, Lower Stated Complaint: L Knee Pain Time Seen by Provider: 03/22/23 15:39 - History of Present Illness Initial Comments: 72-year-old female presents emergency department via EMS with chief complaint of left knee pain. Patient states she does have chronic left knee pain states that she is scheduled for surgery at [facility]. Patient states she slipped on the floor twisting her knee. Patient states she had no head injury no loss conscious. (Andrés John) This is a 72-year-old female to the emergency department today. She presents today for evaluation of left knee pain. Chronic left knee pain with history of knee pain bilaterally. Patient's pain is more severe than left knee after fall prior to arrival. She lost her balance resulting in fall. She does have orthopedic she sees closely for her knee pain and presents with worsening knee pain today (Noah Martinez) - Related Data Home Medications Medication Instructions Recorded Confirmed Pantoprazole Sodium [Protonix] 40 mg PO BID 04/09/16 09/21/22 EPINEPHrine [Epipen 2-River] 0.3 mg IM ONCE PRN 11/16/16 09/21/22 Sucralfate [Carafate] 1 gm PO ACHS 12/13/16 09/21/22 Losartan Potassium 50 mg PO BID 09/16/17 09/21/22 diazePAM [Valium] 5 mg PO DAILY PRN 09/16/17 09/21/22 Levothyroxine Sodium [Synthroid] 88 mcg PO DAILY 04/24/18 09/21/22 buPROPion HCL [Wellbutrin SR] 200 mg PO BID 08/11/18 09/21/22 hydroCHLOROthiazide 12.5 mg PO DAILY 09/12/18 09/21/22 Albuterol Sulfate [Proair Hfa] 1 - 2 puff INHALATION RT-Q4H PRN 03/21/19 09/21/22 diphenhydrAMINE [Benadryl] 50 mg PO HS 03/21/19 09/21/22 Ascorbic Acid [Vitamin C] 1,000 mg PO DAILY 12/12/20 09/21/22 Fexofenadine HCl [Payton Allergy] 180 mg PO BID 12/12/20 09/21/22 valACYclovir HCL [Valtrex] 500 mg PO BID 12/12/20 09/21/22 Biotin Gummy 1 tab PO DAILY 06/17/21 09/21/22 HYDROcodone/APAP 7.5-325MG [[place] 1 tab PO BID 06/17/21 09/21/22 7.5-325] Metoprolol Tartrate [Lopressor] 25 mg PO BID 06/17/21 09/21/22 Multivitamin [Multivitamins Adult 1 tab PO DAILY 06/17/21 09/21/22 Gummies] DULoxetine HCL [Cymbalta] 120 mg PO DAILY 09/21/22 09/21/22 Previous Rx's Medication Instructions Recorded Ondansetron Odt [Zofran Odt] 4 mg PO Q8HR PRN #10 tab 09/07/22 Albuterol Inhaler [Ventolin Hfa 2 puff INHALATION Q6H PRN #1 each 02/06/23 Inhaler] methocarbamoL [Robaxin] 500 mg PO TID PRN #25 tab 02/10/23 Allergies Allergy/AdvReac Type Severity Reaction Status Date / Time atorvastatin [From Lipitor] Allergy Swelling Verified 03/22/23 15:30 buprenorphine [From Butrans] Allergy pain Verified 03/22/23 15:30 carisoprodol [From Soma] Allergy Unknown Verified 03/22/23 15:30 chlorpromazine Allergy Unknown Verified 03/22/23 15:30 [From Thorazine] ciprofloxacin [From Cipro] Allergy Unknown Verified 03/22/23 15:30 clonazepam [From Klonopin] Allergy Unknown Verified 03/22/23 15:30 cyclobenzaprine Allergy Unknown Verified 03/22/23 15:30 [From Flexeril] metoclopramide [From Reglan] Allergy Anaphylaxis Verified 03/22/23 15:30 metronidazole [From Flagyl] Allergy Anaphylaxis Verified 03/22/23 15:30 morphine Allergy Rash/Hives Verified 03/22/23 15:30 naproxen Allergy Unknown Verified 03/22/23 15:30 oxycodone [From OxyContin] Allergy Hallucinati Verified 03/22/23 15:30 ons papaya Allergy Rash/Hives Verified 03/22/23 15:30 prednisone Allergy Anaphylaxis Verified 03/22/23 15:30 prochlorperazine Allergy Anaphylaxis Verified 03/22/23 15:30 [From Compazine] red dye Allergy Rash/Hives Verified 03/22/23 15:30 venom-honey bee Allergy Anaphylaxis Verified 03/22/23 15:30 [bee venom (honey bee)] ketorolac [From Toradol] AdvReac Severe Abdominal Verified 03/22/23 15:30 Pain baclofen AdvReac Twitching Verified 03/22/23 15:30 buspirone [From BuSpar] AdvReac Confusion Verified 03/22/23 15:30 ibuprofen [From Motrin] AdvReac Abdominal Verified 03/22/23 15:30 Pain meperidine [From Demerol] AdvReac Rapid Verified 03/22/23 15:30 Heart Rate Phenothiazines AdvReac Altered Verified 03/22/23 15:30 Mental Status sulfamethoxazole AdvReac Rash/Hives Verified 03/22/23 15:30 [From Bactrim] trimethoprim [From Bactrim] AdvReac Rash/Hives Verified 03/22/23 15:30 Review of Systems ROS Other: All systems not noted in ROS Statement are negative. <Andrés John - Last Filed: 03/22/23 15:39> ROS Other: All systems not noted in ROS Statement are negative. <Noah Martinez - Last Filed: 03/27/23 20:36> ROS Statement: Those systems with pertinent positive or pertinent negative responses have been documented in the HPI. Past Medical History Past Medical History: Asthma, Cancer, COPD, GERD/Reflux, Hypertension, Pneumonia, Thyroid Disorder Additional Past Medical History / Comment(s): shingles, RT BREAST LUMPECTOMY/CANCER, THYROID REMOVE, CATARACTS, BRONCHITIS, MONO TEENAGER, LITE CASE OF POLIO AGE 8, MELANOMA SKIN CANCER REMOVED, r shoulder rotator tear History of Any Multi-Drug Resistant Organisms: MRSA Date of last positivie culture/infection: 2009 MDRO Source:: LEFT ULNAR BONE, kidneys Past Surgical History: Appendectomy, Back Surgery, Cholecystectomy, Orthopedic Surgery Additional Past Surgical History / Comment(s): EYE SX FOR LAZY EYE, SX ON TEAR DUCTS, BACK SURGERY MICRO DISC, LT WRIST BROKEN 9 GALLO HAD 13 Surgeries TO CORRECT, left shoulder and humorous shattered from a fall with 2 surgeries to correct, LAPROSCOPIES- BENIGN TUNOR SIZE OF GRAPFRUIT REMOVED AGE 11 OR 1, RT BREAST BX/LUMPECTOMY,LT PINK FINGER SX TO STRAIGHTEN.MELANOMA SKIN CANCER REMOVED. Past Anesthesia/Blood Transfusion Reactions: No Reported Reaction Additional Past Anesthesia/Blood Transfusion Reaction / Comment(s): CLAUSTERPHOBIA Past Psychological History: Anxiety, Depression, PTSD Smoking Status: Never smoker Past Alcohol Use History: None Reported Past Drug Use History: None Reported - Past Family History Mother Family Medical History: Asthma Additional Family Medical History / Comment(s): ETOH/SMOKER Father Family Medical History: Cancer, Liver Disease Additional Family Medical History / Comment(s): ESOPHOGEAL CANCER, ETOH <Andrés John M - Last Filed: 03/22/23 15:39> General Exam Limitations: physical limitation <Andrés John - Last Filed: 03/22/23 15:39> General appearance: alert, in no apparent distress Head exam: Present: atraumatic, normocephalic, normal inspection Eye exam: Present: normal appearance, PERRL, EOMI. Absent: scleral icterus, conjunctival injection, periorbital swelling ENT exam: Present: normal exam, mucous membranes moist Neck exam: Present: normal inspection. Absent: tenderness, meningismus, lymphadenopathy Respiratory exam: Present: normal lung sounds bilaterally. Absent: respiratory distress, wheezes, rales, rhonchi, stridor Cardiovascular Exam: Present: regular rate, normal rhythm, normal heart sounds. Absent: systolic murmur, diastolic murmur, rubs, gallop, clicks GI/Abdominal exam: Present: soft, normal bowel sounds. Absent: distended, tenderness, guarding, rebound, rigid Extremities exam: Present: normal inspection, full ROM, normal capillary refill. Absent: tenderness, pedal edema, joint swelling, calf tenderness Back exam: Present: normal inspection Neurological exam: Present: alert, oriented X3, CN II-XII intact Psychiatric exam: Present: normal affect, normal mood Skin exam: Present: warm, dry, intact, normal color. Absent: rash <Noah Martinez - Last Filed: 03/27/23 20:36> - General Exam Comments Initial Comments: Visual Physical Exam Vital signs reviewed General: Well-appearing, nontoxic, no acute distress. Head: Normocephalic, atraumatic Eyes: PERRLA, EOMI ENT: Airway patent Chest: Nonlabored breathing Skin: No visual rash, normal skin tone Neuro: Alert and oriented 3 Musculoskeletal: No gross abnormalities (Andrés John) Course <Noah Martinez - Last Filed: 03/27/23 20:36> Vital Signs 03/22/23 03/22/23 15:27 18:54 Temperature 98.9 F 97.9 F Pulse Rate 55 L 57 L Respiratory 18 16 Rate Blood Pressure 149/73 145/72 O2 Sat by Pulse 99 96 Oximetry - Reevaluation(s) Reevaluation #1: 03/22/23 18:47 Medical records reviewed (Noah Martinez) Reevaluation #2: 03/22/23 18:47 Patient's pain is improved (Noah Martinez) Reevaluation #3: 03/22/23 18:47 Patient informed results questions answered (Noah Martinez) Reevaluation #4: 03/22/23 18:47 Was pt. sent in by a medical professional or institution (, PA, BRANCH SERVICE SPECIALIST, urgent care, hospital, or residential...) When possible be specific @ -no Did you speak to anyone other than the patient for history (EMS, parent, family, police, friend...)? What history was obtained from this source @ -no Did you review nursing and triage notes (agree or disagree)? Why? @ -agree Are old charts reviewed (outside hosp., previous admission, EMS record, old EKG, old radiological studies, urgent care reports/EKG's, residential records)? Report findings @ -yes Differential Diagnosis (chest pain, altered mental status, abdominal pain women, abdominal pain men, vaginal bleeding, weakness, fever, dyspnea, syncope, headache, dizziness, GI bleed, back pain, seizure, CVA, palpatations, mental health, musculoskeletal)? @ -prior EKG interpreted by me (3pts min.). @ -no X-rays interpreted by me (1pt min.). @ -yes CT interpreted by me (1pt min.). @ -no U/S interpreted by me (1pt. min.). @ -no What testing was considered but not performed or refused? (CT, X-rays, U/S, labs)? Why? @ -none What meds were considered but not given or refused? Why? @ -none Did you discuss the management of the patient with other professionals (professionals i.e. , PA, BRANCH SERVICE SPECIALIST, lab, RT, psych nurse, social sciences department chair, history faculty member, teacher, casino surveillance officer, piano case maker)? Give summary @ -no Was smoking cessation discussed for >3mins.? @ -no Was critical care preformed (if so, how long)? @ -no Were there social determinants of health that impacted care today? How? (Homelessness, low income, unemployed, alcoholism, drug addiction, transportation, low edu. Level, literacy, decrease access to med. care, fdc, rehab)? @ -none Was there de-escalation of care discussed even if they declined (Discuss DNR or withdrawal of care, Hospice)? DNR status @ -no What co-morbidities impacted this encounter? (DM, HTN, Smoking, COPD, CAD, Cancer, CVA, ARF, Chemo, Hep., AIDS, mental health diagnosis, sleep apnea, morbid obesity)? @ -none Was patient admitted / discharged? Hospital course, mention meds given and route, prescriptions, significant lab abnormalities, going to OR and other pertinent info. @ - 72 female to the emergency department for evaluation of knee pain significant knee pain after fall today. She does have effusion left knee with pain control. Patient can be discharged home Discharge Undiagnosed new problem with uncertain prognosis? @ -no Drug Therapy requiring intensive monitoring for toxicity (Heparin, Nitro, Insulin, Cardizem)? @ -no Were any procedures done? @ -no Diagnosis/symptom? @ -Chronic knee pain Acute, or Chronic, or Acute on Chronic? @ -Acute Uncomplicated (without systemic symptoms) or Complicated (systemic symptoms)? @ -Complicated Side effects of treatment? @ -no Exacerbation, Progression, or Severe Exacerbation? @ -exacerbation Poses a threat to life or bodily function? How? (Chest pain, USA, OR, pneumonia, PE, COPD, DKA, ARF, appy, cholecystitis, CVA, Diverticulitis, Homicidal, Suicidal, threat to staff... and all critical care pts) @ -no (Noah Martinez) Medical Decision Making <Andrés John - Last Filed: 03/22/23 15:39> - Radiology Data Radiology results: report reviewed (X-ray left is negative for traumatic injury), image reviewed <Noah Martinez - Last Filed: 03/27/23 20:36> - Medical Decision Making I performed a quick note portion of this chart signed Andrés John PA-C (Andrés John) 72 female to the emergency department for evaluation of knee pain significant knee pain after fall today. She does have effusion left knee with pain control. Patient can be discharged home (Noah Martinez) Disposition <Andrés John - Last Filed: 03/22/23 15:39> Is patient prescribed a controlled substance at d/c from ED?: No Time of Disposition: 18:00 <Noah Martinez - Last Filed: 03/27/23 20:36> Clinical Impression: Left knee pain, Effusion, left knee Disposition: HOME SELF-CARE Condition: Good Instructions (If sedation given, give patient instructions): Knee Pain (ED) Referrals: Matty Brown MD [Primary Care Provider] - 1-2 days
[2023-03-22] MEDS ORDERED: diphenhydrAMINE 50 MG CAP PO STA (17:05)
[2023-03-22] MEDS ORDERED: HYDROmorphone 1 MG/ML 1 ML SYRINGE IM STA (17:05)
--- NOTE | 2023-03-22 17:40 | XR ---
EXAMINATION TYPE: XR knee complete LT DATE OF EXAM: 03/22/2023 COMPARISON: 03/02/2023 HISTORY: Pain TECHNIQUE: 3 view left knee FINDINGS: There is loss of medial compartment joint space. Mild narrowing of the lateral compartment joint space is present. Some calcification within the meniscus appears to be present. No acute fracture or dislocation is evident. Small joint effusion may be present. Posterior superior patellar spurring is present. Findings appear stable over the interval. IMPRESSION: 1. Suggestion of a small joint effusion. 2. Moderate degenerative changes medial compartment left knee
[2023-03-22 19:13] VITALS: BP 145/72; PULSE 57; RESP 16; TEMP 97.9
== END 2023-03-22 19:02 | disposition home or self-care (01) ==
LOC: EC 15:21
DX: G89.29 Other chronic pain (principal); M25.462 Effusion, left knee; I10 Essential (primary) hypertension; F32.A Depression, unspecified; F41.9 Anxiety disorder, unspecified; K21.9 Gastro-esophageal reflux disease without esophagitis; E07.9 Disorder of thyroid, unspecified; Z79.890 Hormone replacement therapy; Z79.899 Other long term (current) drug therapy; Z88.1 Allergy status to other antibiotic agents; Z88.2 Allergy status to sulfonamides; Z88.5 Allergy status to narcotic agent; Z88.6 Allergy status to analgesic agent; Z88.8 Allergy status to other drugs, medicaments and biological substances; Z91.030 Bee allergy status; Z90.49 Acquired absence of other specified parts of digestive tract; W01.0XXA Fall on same level from slipping, tripping and stumbling without subsequent striking against object, initial encounter
CPT/HCPCS: 99284 ×2; 96372 ×2; 73562; J1170

== ENCOUNTER 2023-04-13 06:39 | Emergency (ER) | payer MEDICARE, OTHER ==
[2023-04-13] MEDS ORDERED: HYDROmorphone 0.5 MG/0.5 ML SYRINGE IVP STA (06:58)
--- NOTE | 2023-04-13 07:02 | ED ---
Lower Extremity Injury HPI - General Chief Complaint: Extremity Injury, Lower Stated Complaint: Groin pain Time Seen by Provider: 04/13/23 06:52 Source: patient, EMS, RN notes reviewed Mode of arrival: EMS Limitations: no limitations - History of Present Illness Initial Comments: 72-year-old female presents emergency department via EMS chief complaint left groin pain. Patient states she has pulling her bed covers over since that she stretched her leg. Patient states that the pain is worse with movement better at rest she has chronic left leg issues and which she is scheduled for surgery on her left knee in May. She denies any abdominal pain denies any dysuria hematuria states she was constipated but sent out which alleviated the symptoms she has no chest pain or shortness of breath no fevers or chills no other complaints - Related Data Home Medications Medication Instructions Recorded Confirmed Pantoprazole Sodium [Protonix] 40 mg PO BID 04/09/16 09/21/22 EPINEPHrine [Epipen 2-River] 0.3 mg IM ONCE PRN 11/16/16 09/21/22 Sucralfate [Carafate] 1 gm PO ACHS 12/13/16 09/21/22 Losartan Potassium 50 mg PO BID 09/16/17 09/21/22 diazePAM [Valium] 5 mg PO DAILY PRN 09/16/17 09/21/22 Levothyroxine Sodium [Synthroid] 88 mcg PO DAILY 04/24/18 09/21/22 buPROPion HCL [Wellbutrin SR] 200 mg PO BID 08/11/18 09/21/22 hydroCHLOROthiazide 12.5 mg PO DAILY 09/12/18 09/21/22 Albuterol Sulfate [Proair Hfa] 1 - 2 puff INHALATION RT-Q4H PRN 03/21/19 09/21/22 diphenhydrAMINE [Benadryl] 50 mg PO HS 03/21/19 09/21/22 Ascorbic Acid [Vitamin C] 1,000 mg PO DAILY 12/12/20 09/21/22 Fexofenadine HCl [[place] Allergy] 180 mg PO BID 12/12/20 09/21/22 valACYclovir HCL [Valtrex] 500 mg PO BID 12/12/20 09/21/22 Biotin Gummy 1 tab PO DAILY 06/17/21 09/21/22 HYDROcodone/APAP 7.5-325MG [[place] 1 tab PO BID 06/17/21 09/21/22 7.5-325] Metoprolol Tartrate [Lopressor] 25 mg PO BID 06/17/21 09/21/22 Multivitamin [Multivitamins Adult 1 tab PO DAILY 06/17/21 09/21/22 Gummies] DULoxetine HCL [Cymbalta] 120 mg PO DAILY 09/21/22 09/21/22 Previous Rx's Medication Instructions Recorded Ondansetron Odt [Zofran Odt] 4 mg PO Q8HR PRN #10 tab 09/07/22 Albuterol Inhaler [Ventolin Hfa 2 puff INHALATION Q6H PRN #1 each 02/06/23 Inhaler] methocarbamoL [Robaxin] 500 mg PO TID PRN #25 tab 02/10/23 Allergies Allergy/AdvReac Type Severity Reaction Status Date / Time atorvastatin [From Lipitor] Allergy Swelling Verified 03/22/23 15:30 buprenorphine [From Butrans] Allergy pain Verified 03/22/23 15:30 carisoprodol [From Soma] Allergy Unknown Verified 03/22/23 15:30 chlorpromazine Allergy Unknown Verified 03/22/23 15:30 [From Thorazine] ciprofloxacin [From Cipro] Allergy Unknown Verified 03/22/23 15:30 clonazepam [From Klonopin] Allergy Unknown Verified 03/22/23 15:30 cyclobenzaprine Allergy Unknown Verified 03/22/23 15:30 [From Flexeril] metoclopramide [From Reglan] Allergy Anaphylaxis Verified 03/22/23 15:30 metronidazole [From Flagyl] Allergy Anaphylaxis Verified 03/22/23 15:30 morphine Allergy Rash/Hives Verified 03/22/23 15:30 naproxen Allergy Unknown Verified 03/22/23 15:30 oxycodone [From OxyContin] Allergy Hallucinati Verified 03/22/23 15:30 ons papaya Allergy Rash/Hives Verified 03/22/23 15:30 prednisone Allergy Anaphylaxis Verified 03/22/23 15:30 prochlorperazine Allergy Anaphylaxis Verified 03/22/23 15:30 [From Compazine] red dye Allergy Rash/Hives Verified 03/22/23 15:30 venom-honey bee Allergy Anaphylaxis Verified 03/22/23 15:30 [bee venom (honey bee)] ketorolac [From Toradol] AdvReac Severe Abdominal Verified 03/22/23 15:30 Pain baclofen AdvReac Twitching Verified 03/22/23 15:30 buspirone [From BuSpar] AdvReac Confusion Verified 03/22/23 15:30 ibuprofen [From Motrin] AdvReac Abdominal Verified 03/22/23 15:30 Pain meperidine [From Demerol] AdvReac Rapid Verified 03/22/23 15:30 Heart Rate Phenothiazines AdvReac Altered Verified 03/22/23 15:30 Mental Status sulfamethoxazole AdvReac Rash/Hives Verified 03/22/23 15:30 [From Bactrim] trimethoprim [From Bactrim] AdvReac Rash/Hives Verified 03/22/23 15:30 Review of Systems ROS Statement: Those systems with pertinent positive or pertinent negative responses have been documented in the HPI. ROS Other: All systems not noted in ROS Statement are negative. Past Medical History Past Medical History: Asthma, Cancer, COPD, GERD/Reflux, Hypertension, Pneumonia, Thyroid Disorder Additional Past Medical History / Comment(s): shingles, RT BREAST LUMPECTOMY/CANCER, THYROID REMOVE, CATARACTS, BRONCHITIS, MONO TEENAGER, LITE CASE OF POLIO AGE 8, MELANOMA SKIN CANCER REMOVED, r shoulder rotator tear History of Any Multi-Drug Resistant Organisms: MRSA Date of last positivie culture/infection: 2009 MDRO Source:: LEFT ULNAR BONE, kidneys Past Surgical History: Appendectomy, Back Surgery, Cholecystectomy, Orthopedic Surgery Additional Past Surgical History / Comment(s): EYE SX FOR LAZY EYE, SX ON TEAR DUCTS, BACK SURGERY MICRO DISC, LT WRIST BROKEN 7 GALLO HAD 13 Surgeries TO CORRECT, left shoulder and humorous shattered from a fall with 2 surgeries to correct, LAPROSCOPIES- BENIGN TUNOR SIZE OF GRAPFRUIT REMOVED AGE 11 OR 1, RT BREAST BX/LUMPECTOMY,LT PINK FINGER SX TO STRAIGHTEN.MELANOMA SKIN CANCER REMOVED. Past Anesthesia/Blood Transfusion Reactions: No Reported Reaction Additional Past Anesthesia/Blood Transfusion Reaction / Comment(s): CLAUSTERPHOBIA Past Psychological History: Anxiety, Depression, PTSD Smoking Status: Never smoker Past Alcohol Use History: None Reported Past Drug Use History: None Reported - Past Family History Mother Family Medical History: Asthma Additional Family Medical History / Comment(s): ETOH/SMOKER Father Family Medical History: Cancer, Liver Disease Additional Family Medical History / Comment(s): ESOPHOGEAL CANCER, ETOH General Exam Limitations: no limitations General appearance: alert, in no apparent distress Head exam: Present: atraumatic, normocephalic, normal inspection Eye exam: Present: normal appearance, PERRL, EOMI. Absent: scleral icterus, conjunctival injection, periorbital swelling Respiratory exam: Present: normal lung sounds bilaterally. Absent: respiratory distress, wheezes, rales, rhonchi, stridor Cardiovascular Exam: Present: regular rate, normal rhythm, normal heart sounds. Absent: systolic murmur, diastolic murmur, rubs, gallop, clicks GI/Abdominal exam: Present: soft, normal bowel sounds. Absent: distended, tenderness, guarding, rebound, rigid Extremities exam: Present: other (Left groin mild tenderness, no obvious hernia bulging or discoloration, pain with range of motion better at rest) Neurological exam: Present: reflexes normal. Absent: motor sensory deficit Course Vital Signs 04/13/23 06:50 Temperature 98.9 F Pulse Rate 65 Respiratory 18 Rate Blood Pressure 158/80 O2 Sat by Pulse 98 Oximetry Medical Decision Making - Medical Decision Making Was pt. sent in by a medical professional or institution (SHAYLA Lerner, GOVERNMENT AFFAIRS FELLOW, urgent care, hospital, or retirement...) When possible be specific @ -No Did you speak to anyone other than the patient for history (EMS, parent, family, police, friend...)? What history was obtained from this source @ -No Did you review nursing and triage notes (agree or disagree)? Why? @ -I reviewed and agree with nursing and triage notes Were old charts reviewed (outside hosp., previous admission, EMS record, old EKG, old radiological studies, urgent care reports/EKG's, retirement records)? Report findings @ -Review prior charts Differential Diagnosis (chest pain, altered mental status, abdominal pain women, abdominal pain men, vaginal bleeding, weakness, fever, dyspnea, syncope, headache, dizziness, GI bleed, back pain, seizure, CVA, palpatations, mental health, musculoskeletal)? @ -Hip strain, hernia, leg pain EKG interpreted by me (3pts min.). @ -None X-rays interpreted by me (1pt min.). @ -None done CT interpreted by me (1pt min.). @ -None done U/S interpreted by me (1pt. min.). @ -None done What testing was considered but not performed or refused? (CT, X-rays, U/S, lab s)? Why? @ -None What meds were considered but not given or refused? Why? @ -None Did you discuss the management of the patient with other professionals (professionals i.e. , PA, GOVERNMENT AFFAIRS FELLOW, lab, RT, psych nurse, social work case manager, box stacker, teacher, medical laboratory technical officer, disability case manager)? Give summary @ -No Was smoking cessation discussed for >3mins.? @ -No Was critical care preformed (if so, how long)? @ -No Were there social determinants of health that impacted care today? How? (Homelessness, low income, unemployed, alcoholism, drug addiction, transportation, low edu. Level, literacy, decrease access to med. care, retirement, rehab)? @ -No Was there de-escalation of care discussed even if they declined (Discuss DNR or withdrawal of care, Hospice)? DNR status @ -No What co-morbidities impacted this encounter? (DM, HTN, Smoking, COPD, CAD, Cancer, CVA, ARF, Chemo, Hep., AIDS, mental health diagnosis, sleep apnea, morbid obesity)? @ -None Was patient admitted / discharged? Hospital course, mention meds given and route, prescriptions, significant lab abnormalities, going to OR and other pertinent info. @ -Discharge patient was provided analgesics. Patient left groin strain will be discharged in stable condition. Undiagnosed new problem with uncertain prognosis? @ -No Drug Therapy requiring intensive monitoring for toxicity (Heparin, Nitro, Insulin, Cardizem)? @ -No Were any procedures done? @ -No Diagnosis/symptom? @ -Left groin strain Acute, or Chronic, or Acute on Chronic? @ -Acute Uncomplicated (without systemic symptoms) or Complicated (systemic symptoms)? @ -Uncomplicated] Side effects of treatment? @ -No Exacerbation, Progression, or Severe Exacerbation? @ -No Poses a threat to life or bodily function? How? (Chest pain, [place], [place], pneumonia, PE, COPD, DKA, ARF, appy, cholecystitis, CVA, Diverticulitis, Homicidal, Suicidal, threat to staff... and all critical care pts) @ -No Disposition Clinical Impression: Strain of left groin Disposition: HOME SELF-CARE Condition: Stable Instructions (If sedation given, give patient instructions): Groin Strain (ED) Additional Instructions: Please return to the Emergency Department if symptoms worsen or any other concerns. Is patient prescribed a controlled substance at d/c from ED?: No Referrals: Matty Brown MD [Primary Care Provider] - 1-2 days Time of Disposition: 07:01
[2023-04-13 07:33] VITALS: TEMP 98.9
[2023-04-13 07:56] VITALS: BP 156/68; PULSE 68; RESP 16
== END 2023-04-13 07:37 | disposition home or self-care (01) ==
LOC: EC 06:39
DX: S39.011A Strain of muscle, fascia and tendon of abdomen, initial encounter (principal); J44.89 Other specified chronic obstructive pulmonary disease; K21.9 Gastro-esophageal reflux disease without esophagitis; I10 Essential (primary) hypertension; E07.9 Disorder of thyroid, unspecified; F32.A Depression, unspecified; F41.9 Anxiety disorder, unspecified; Z79.890 Hormone replacement therapy; Z79.899 Other long term (current) drug therapy; Z88.1 Allergy status to other antibiotic agents; Z88.2 Allergy status to sulfonamides; Z88.5 Allergy status to narcotic agent; Z88.6 Allergy status to analgesic agent; Z88.8 Allergy status to other drugs, medicaments and biological substances; Z91.030 Bee allergy status; Z91.018 Allergy to other foods; Z91.041 Radiographic dye allergy status; Z90.49 Acquired absence of other specified parts of digestive tract; X50.9XXA Other and unspecified overexertion or strenuous movements or postures, initial encounter
CPT/HCPCS: 99284; 96374; J1170

== ENCOUNTER 2023-04-28 06:31 | Emergency (ER) | payer MEDICARE, OTHER ==
[2023-04-28 06:38] VITALS: TEMP 98
[2023-04-28] MEDS ORDERED: HYDROmorphone 0.5 MG/0.5 ML SYRINGE IM STA ×2 (07:01→07:53)
--- NOTE | 2023-04-28 07:36 | XR ---
EXAMINATION TYPE: XR knee complete LT DATE OF EXAM: 04/28/2023 COMPARISON: 03/22/2023 HISTORY: 72-year-old female with left knee pain TECHNIQUE: 3 views FINDINGS: There is tricompartmental degenerative change. Meniscal chondrocalcinosis. Moderate to severe loss of cartilage and joint space of the medial compartment with a extruded medial meniscus redemonstrated. A moderate knee joint effusion is present. No lipohemarthrosis identified. No acute fracture, subluxa tion, dislocation seen. IMPRESSION: 1. Tricompartmental osteoarthrosis demonstrated. Moderate to severe in the medial compartment with a torn and extruded medial meniscus as was present previously as well. 2. Moderate knee joint effusion may be reactive to arthritis. If concern for internal derangement, MR I can be performed. 3. Otherwise, no acute osseous abnormality seen.
--- NOTE | 2023-04-28 07:58 | ED ---
General Adult HPI - General Chief complaint: Extremity Injury, Lower Stated complaint: LEG PAIN Time Seen by Provider: 04/28/23 06:38 Source: patient, EMS, RN notes reviewed Mode of arrival: EMS Limitations: no limitations - History of Present Illness Initial comments: 42-year-old female who is well-known to this emergency department presents to the hospital via EMS for left knee pain. She reports that she fell on her left knee at approximately 2 in the morning. Onto hardware floor. She denies hitting her head or loss of consciousness. Denies numbness tingling, weakness in the extremity. Patient reports she has orthopedic surgery scheduled for May 17, 2022 at [facility]. - Related Data Home Medications Medication Instructions Recorded Confirmed Pantoprazole Sodium [Protonix] 40 mg PO BID 04/09/16 09/21/22 EPINEPHrine [Epipen 2-River] 0.3 mg IM ONCE PRN 11/16/16 09/21/22 Sucralfate [Carafate] 1 gm PO ACHS 12/13/16 09/21/22 Losartan Potassium 50 mg PO BID 09/16/17 09/21/22 diazePAM [Valium] 5 mg PO DAILY PRN 09/16/17 09/21/22 Levothyroxine Sodium [Synthroid] 88 mcg PO DAILY 04/24/18 09/21/22 buPROPion HCL [Wellbutrin SR] 200 mg PO BID 08/11/18 09/21/22 hydroCHLOROthiazide 12.5 mg PO DAILY 09/12/18 09/21/22 Albuterol Sulfate [Proair Hfa] 1 - 2 puff INHALATION RT-Q4H PRN 03/21/19 09/21/22 diphenhydrAMINE [Benadryl] 50 mg PO HS 03/21/19 09/21/22 Ascorbic Acid [Vitamin C] 1,000 mg PO DAILY 12/12/20 09/21/22 Fexofenadine HCl [Payton Allergy] 180 mg PO BID 12/12/20 09/21/22 valACYclovir HCL [Valtrex] 500 mg PO BID 12/12/20 09/21/22 Biotin Gummy 1 tab PO DAILY 06/17/21 09/21/22 HYDROcodone/APAP 7.5-325MG [[place] 1 tab PO BID 06/17/21 09/21/22 7.5-325] Metoprolol Tartrate [Lopressor] 25 mg PO BID 06/17/21 09/21/22 Multivitamin [Multivitamins Adult 1 tab PO DAILY 06/17/21 09/21/22 Gummies] DULoxetine HCL [Cymbalta] 120 mg PO DAILY 09/21/22 09/21/22 Previous Rx's Medication Instructions Recorded Ondansetron Odt [Zofran Odt] 4 mg PO Q8HR PRN #10 tab 09/07/22 Albuterol Inhaler [Ventolin Hfa 2 puff INHALATION Q6H PRN #1 each 02/06/23 Inhaler] methocarbamoL [Robaxin] 500 mg PO TID PRN #25 tab 02/10/23 Allergies Allergy/AdvReac Type Severity Reaction Status Date / Time atorvastatin [From Lipitor] Allergy Swelling Verified 03/22/23 15:30 buprenorphine [From Butrans] Allergy pain Verified 03/22/23 15:30 carisoprodol [From Soma] Allergy Unknown Verified 03/22/23 15:30 chlorpromazine Allergy Unknown Verified 03/22/23 15:30 [From Thorazine] ciprofloxacin [From Cipro] Allergy Unknown Verified 03/22/23 15:30 clonazepam [From Klonopin] Allergy Unknown Verified 03/22/23 15:30 cyclobenzaprine Allergy Unknown Verified 03/22/23 15:30 [From Flexeril] metoclopramide [From Reglan] Allergy Anaphylaxis Verified 03/22/23 15:30 metronidazole [From Flagyl] Allergy Anaphylaxis Verified 03/22/23 15:30 morphine Allergy Rash/Hives Verified 03/22/23 15:30 naproxen Allergy Unknown Verified 03/22/23 15:30 oxycodone [From OxyContin] Allergy Hallucinati Verified 03/22/23 15:30 ons papaya Allergy Rash/Hives Verified 03/22/23 15:30 prednisone Allergy Anaphylaxis Verified 03/22/23 15:30 prochlorperazine Allergy Anaphylaxis Verified 03/22/23 15:30 [From Compazine] red dye Allergy Rash/Hives Verified 03/22/23 15:30 venom-honey bee Allergy Anaphylaxis Verified 03/22/23 15:30 [bee venom (honey bee)] ketorolac [From Toradol] AdvReac Severe Abdominal Verified 03/22/23 15:30 Pain baclofen AdvReac Twitching Verified 03/22/23 15:30 buspirone [From BuSpar] AdvReac Confusion Verified 03/22/23 15:30 ibuprofen [From Motrin] AdvReac Abdominal Verified 03/22/23 15:30 Pain meperidine [From Demerol] AdvReac Rapid Verified 03/22/23 15:30 Heart Rate Phenothiazines AdvReac Altered Verified 03/22/23 15:30 Mental Status sulfamethoxazole AdvReac Rash/Hives Verified 03/22/23 15:30 [From Bactrim] trimethoprim [From Bactrim] AdvReac Rash/Hives Verified 03/22/23 15:30 Review of Systems ROS Statement: Those systems with pertinent positive or pertinent negative responses have been documented in the HPI. ROS Other: All systems not noted in ROS Statement are negative. Past Medical History Past Medical History: Asthma, Cancer, COPD, GERD/Reflux, Hypertension, Pneumonia, Thyroid Disorder Additional Past Medical History / Comment(s): shingles, RT BREAST LUMPECTOMY/CANCER, THYROID REMOVE, CATARACTS, BRONCHITIS, MONO TEENAGER, LITE CASE OF POLIO AGE 8, MELANOMA SKIN CANCER REMOVED, r shoulder rotator tear History of Any Multi-Drug Resistant Organisms: MRSA Date of last positivie culture/infection: 2009 MDRO Source:: LEFT ULNAR BONE, kidneys Past Surgical History: Appendectomy, Back Surgery, Cholecystectomy, Orthopedic Surgery Additional Past Surgical History / Comment(s): EYE SX FOR LAZY EYE, SX ON TEAR DUCTS, BACK SURGERY MICRO DISC, LT WRIST BROKEN 9 GALLO HAD 13 Surgeries TO CORRECT, left shoulder and humorous shattered from a fall with 2 surgeries to correct, LAPROSCOPIES- BENIGN TUNOR SIZE OF GRAPFRUIT REMOVED AGE 11 OR 1, RT BREAST BX/LUMPECTOMY,LT PINK FINGER SX TO STRAIGHTEN.MELANOMA SKIN CANCER REMOVED. Past Anesthesia/Blood Transfusion Reactions: No Reported Reaction Additional Past Anesthesia/Blood Transfusion Reaction / Comment(s): CLAUSTERPHOBIA Past Psychological History: Anxiety, Depression, PTSD Smoking Status: Never smoker Past Alcohol Use History: None Reported Past Drug Use History: None Reported - Past Family History Mother Family Medical History: Asthma Additional Family Medical History / Comment(s): ETOH/SMOKER Father Family Medical History: Cancer, Liver Disease Additional Family Medical History / Comment(s): ESOPHOGEAL CANCER, ETOH General Exam - General Exam Comments Initial Comments: General: Alert, in no acute distress Head: atraumatic normocephalic. Eyes PERRL, EOMI intact, mucous membranes moist Respiratory: Lungs clear to auscultation bilaterally Cardiovascular: Heart rate regular rate and Abdominal: Soft without guarding or rebound Extremities: Normal inspection with full range of motion and normal capillary refill, left knee without market edema. No evidence of trauma, no valgus or varus laxity Homans sign negative. Distal NVI Neuroogic: alert and oriented 3, CN II-XII intact, able to ambulate with steady gait Skin: warm dry and intact with normal color Limitations: no limitations Course Vital Signs 04/28/23 06:35 Temperature 98 F Pulse Rate 61 Respiratory 18 Rate Blood Pressure 142/64 O2 Sat by Pulse 99 Oximetry - Reevaluation(s) Reevaluation #1: 04/28/23 07:56 Reevaluated and updated on results. Agreeable with the plan for discharge home. Medical Decision Making - Medical Decision Making Was pt. sent in by a medical professional or institution (, PA, DATA OPERATIONS DIRECTOR, urgent care, hospital, or group home...) When possible be specific @ -[No] Did you speak to anyone other than the patient for history (EMS, parent, family, police, friend...)? What history was obtained from this source @ -[No] Did you review nursing and triage notes (agree or disagree)? Why? @ -[I reviewed and agree with nursing and triage notes] Were old charts reviewed (outside hosp., previous admission, EMS record, old EKG, old radiological studies, urgent care reports/EKG's, group home records)? Report findings @ -[No old charts were reviewed] Differential Diagnosis (chest pain, altered mental status, abdominal pain women, abdominal pain men, vaginal bleeding, weakness, fever, dyspnea, syncope, headache, dizziness, GI bleed, back pain, seizure, CVA, palpatations, mental health, musculoskeletal)? @ -[not applicable] EKG interpreted by me (3pts min.). @ -[As above] X-rays interpreted by me (1pt min.). @ -Knee x-ray does not reveal any acute fracture dislocation. There is moderate arthritic changes CT interpreted by me (1pt min.). @ -[None done] U/S interpreted by me (1pt. min.). @ -[None done] What testing was considered but not performed or refused? (CT, X-rays, U/S, labs)? Why? @ -[None] What meds were considered but not given or refused? Why? @ -[None] Did you discuss the management of the patient with other professionals (professionals i.e. , PA, DATA OPERATIONS DIRECTOR, lab, RT, psych nurse, social and human services assistant, telecommunications support, teacher, safety and security officer, field nurse case manager)? Give summary @ -[No] Was smoking cessation discussed for >3mins.? @ -[No] Was critical care preformed (if so, how long)? @ -[No] Were there social determinants of health that impacted care today? How? (Homelessness, low income, unemployed, alcoholism, drug addiction, transportation, low edu. Level, literacy, decrease access to med. care, [facility], rehab)? @ -[No] Was there de-escalation of care discussed even if they declined (Discuss DNR or withdrawal of care, Hospice)? DNR status @ -[No] What co-morbidities impacted this encounter? (DM, HTN, Smoking, COPD, CAD, Cancer, CVA, ARF, Chemo, Hep., AIDS, mental health diagnosis, sleep apnea, morbid obesity)? @ -[None] Was patient admitted / discharged? Hospital course, mention meds given and route, prescriptions, significant lab abnormalities, going to OR and other pertinent info. @ -Discharged. This is a 72-year-old female who presents the emergency department with left knee pain. Patient had a thorough history and physical exam performed. Exam unremarkable. Patient had x-rays which were negative. Patient provided Dilaudid with some improvement. Return precautions discussed discharge stable condition. Case discussed with Dr. Martinez ED attending who agrees with POC. Undiagnosed new problem with uncertain prognosis? @ -[No] Drug Therapy requiring intensive monitoring for toxicity (Heparin, Nitro, Insulin, Cardizem)? @ -[No] Were any procedures done? @ -[No] Diagnosis/symptom? @ -Left Knee Pain Acute, or Chronic, or Acute on Chronic? @ -Acute Uncomplicated (without systemic symptoms) or Complicated (systemic symptoms)? @ -Uncomplicated Side effects of treatment? @ -[No] Exacerbation, Progression, or Severe Exacerbation? @ -[No] Poses a threat to life or bodily function? How? (Chest pain, [place], [place], pneumonia, PE, COPD, DKA, ARF, appy, cholecystitis, CVA, Diverticulitis, Homicidal, Suicidal, threat to staff... and all critical care pts) @ -Low likelihood Disposition Clinical Impression: Left knee pain Disposition: HOME SELF-CARE Condition: Stable Instructions (If sedation given, give patient instructions): Knee Sprain (ED) Additional Instructions: Please apply ice or heat to the area Monitor symptoms closely Return to the nearest emergency department if symptoms worsen or persist Is patient prescribed a controlled substance at d/c from ED?: No Referrals: Matty Brown MD [Primary Care Provider] - 1-2 days Time of Disposition: 07:58
[2023-04-28 08:18] VITALS: BP 135/86; PULSE 68; RESP 16
== END 2023-04-28 08:10 | disposition home or self-care (01) ==
LOC: EC 06:31
DX: M25.562 Pain in left knee (principal); J44.89 Other specified chronic obstructive pulmonary disease; K21.9 Gastro-esophageal reflux disease without esophagitis; I10 Essential (primary) hypertension; M17.12 Unilateral primary osteoarthritis, left knee; E07.9 Disorder of thyroid, unspecified; F41.9 Anxiety disorder, unspecified; F32.A Depression, unspecified; Z88.5 Allergy status to narcotic agent; Z88.2 Allergy status to sulfonamides; Z88.6 Allergy status to analgesic agent; Z88.8 Allergy status to other drugs, medicaments and biological substances; Z91.030 Bee allergy status; Z88.1 Allergy status to other antibiotic agents; Z91.018 Allergy to other foods; Z79.890 Hormone replacement therapy; Z79.899 Other long term (current) drug therapy; W18.30XA Fall on same level, unspecified, initial encounter
CPT/HCPCS: 73562; 99284; 96372; J1170

== ENCOUNTER 2023-05-02 03:24 | Observation (INO) | payer MEDICARE ==
[2023-05-02] MEDS ORDERED: HYDROmorphone 0.5 MG/0.5 ML SYRINGE IVP STA (03:52)
[2023-05-02] MEDS ORDERED: SODIUM CHLORIDE 0.9% 1,000 ML IV ONE (03:52)
[2023-05-02 04:29] LABS: Basophils # (A) 0.1 k/uL (0-0.2); Basophils % (A) 1 %; Eosinophils # (A) 0.1 k/uL (0-0.7); Eosinophils % (A) 1 %; HCT 36.8 % (34.0-46.0); HGB 11.7 gm/dL (11.4-16.0); Hypochromasia Slight; Lymphocytes # (A) 1.8 k/uL (1.0-4.8); Lymphocytes % (A) 13 %; MCH 29.8 pg (25.0-35.0); MCHC 31.7 g/dL (31.0-37.0); Mean Platelet Volume 10.4; Monocytes % (A) 7 %; Neutrophils # (A) 10.3 k/uL (1.3-7.7); Neutrophils % (A) 76 %; Platelet Count 305 k/uL (150-450); RBC 3.92 m/uL (3.80-5.40); RDW 15.4 % (11.5-15.5); WBC 13.6 k/uL (3.8-10.6)
[2023-05-02 04:35] LABS: ALT 26 U/L (4-34); AST 40 U/L (14-36); African American GFR (CKD) 19 (>60 ml/min/1.73 sqM); Albumin 4.6 g/dL (3.5-5.0); Alkaline Phosphatase 138 U/L (38-126); Amylase 167 U/L (30-110); Anion Gap 17 mmol/L; Blood Urea Nitrogen 56 mg/dL (7-17); C Reactive Protein 0.7 mg/dL (<1.0); Calcium 9.6 mg/dL (8.4-10.2); Carbon Dioxide 20 mmol/L (22-30); Chloride 101 mmol/L (98-107); Glucose 104 mg/dL (74-99); Lipase 229 U/L (23-300); Non-African American GFR(CKD) 16 (>60 ml/min/1.73 sqM); Potassium 4.5 mmol/L (3.5-5.1); Sodium 138 mmol/L (137-145); Total Bilirubin 0.5 mg/dL (0.2-1.3); Total Protein 7.6 g/dL (6.3-8.2)
--- NOTE | 2023-05-02 06:22 | CT ---
EXAM: CT Abdomen and Pelvis Without Intravenous Contrast CLINICAL HISTORY: abdominal pain, LLQ TECHNIQUE: Axial computed tomography images of the abdomen and pelvis without intravenous contrast. CTDI is 10.1 mGy and DLP is 607.2 mGy-cm. This CT exam was performed using one or more of the following dose reduction techniques: automated exposure control, adjustment of the mA and/or kV according to patient size, and/or use of iterative reconstruction technique. COMPARISON: CT May 04, 2016. FINDINGS: Lung bases: Unremarkable. No mass. No consolidation. ABDOMEN: Liver: Unremarkable. Gallbladder and bile ducts: Cholecystectomy. No ductal dilation. Pancreas: Unremarkable. No ductal dilation. Spleen: Unremarkable. No splenomegaly. Adrenals: Unremarkable. No mass. Kidneys and ureters: Bilateral scarring. No obstructing stones. No hydronephrosis. Stomach and bowel: Unremarkable. No obstruction. No mucosal thickening. PELVIS: Appendix: No findings to suggest acute appendicitis. Bladder: Unremarkable. No stones. Reproductive: Hysterectomy. ABDOMEN and PELVIS: Intraperitoneal space: Unremarkable. No free air. No significant fluid collection. Bones/joints: No acute fracture. No dislocation. Soft tissues: Unremarkable. Vasculature: Unremarkable. No abdominal aortic aneurysm. Lymph nodes: Unremarkable. No enlarged lymph nodes. IMPRESSION: No acute findings in the abdomen or pelvis.
--- NOTE | 2023-05-02 07:33 | ED ---
Abdominal Pain HPI - General Chief Complaint: Abdominal Pain Stated Complaint: Abdominal Pain, Groin Pain Time Seen by Provider: 05/02/23 03:33 Source: patient, EMS Mode of arrival: EMS Limitations: no limitations - History of Present Illness Initial Comments: This patient is 72-year-old woman who presents to have evaluation for left-sided abdominal pain. She states the pain is been intermittent for about 2 months. She states she had seen her physician and they were going to get her CAT scan but she wasn't able to get in for that. States the pain is worsened over the past evening. She has had episodes of vomiting. Patient has not noted fevers. No hematemesis or bloody or tarry stools. MD Complaint: abdominal pain -: days(s) Location: LUQ, LLQ Radiation: none Severity: severe Quality: aching Consistency: constant Improves With: nothing Worsens With: nothing Associated Symptoms: nausea, vomiting - Related Data Home Medications Medication Instructions Recorded Confirmed Pantoprazole Sodium [Protonix] 40 mg PO BID 04/09/16 09/21/22 EPINEPHrine [Epipen 2-River] 0.3 mg IM ONCE PRN 11/16/16 09/21/22 Sucralfate [Carafate] 1 gm PO ACHS 12/13/16 09/21/22 Losartan Potassium 50 mg PO BID 09/16/17 09/21/22 diazePAM [Valium] 5 mg PO DAILY PRN 09/16/17 09/21/22 Levothyroxine Sodium [Synthroid] 88 mcg PO DAILY 04/24/18 09/21/22 buPROPion HCL [Wellbutrin SR] 200 mg PO BID 08/11/18 09/21/22 hydroCHLOROthiazide 12.5 mg PO DAILY 09/12/18 09/21/22 Albuterol Sulfate [Proair Hfa] 1 - 2 puff INHALATION RT-Q4H PRN 03/21/19 09/21/22 diphenhydrAMINE [Benadryl] 50 mg PO HS 03/21/19 09/21/22 Ascorbic Acid [Vitamin C] 1,000 mg PO DAILY 12/12/20 09/21/22 Fexofenadine HCl [Payton Allergy] 180 mg PO BID 12/12/20 09/21/22 valACYclovir HCL [Valtrex] 500 mg PO BID 12/12/20 09/21/22 Biotin Gummy 1 tab PO DAILY 06/17/21 09/21/22 HYDROcodone/APAP 7.5-325MG [[place] 1 tab PO BID 06/17/21 09/21/22 7.5-325] Metoprolol Tartrate [Lopressor] 25 mg PO BID 06/17/21 09/21/22 Multivitamin [Multivitamins Adult 1 tab PO DAILY 06/17/21 09/21/22 Gummies] DULoxetine HCL [Cymbalta] 120 mg PO DAILY 09/21/22 09/21/22 Previous Rx's Medication Instructions Recorded Ondansetron Odt [Zofran Odt] 4 mg PO Q8HR PRN #10 tab 09/07/22 Albuterol Inhaler [Ventolin Hfa 2 puff INHALATION Q6H PRN #1 each 02/06/23 Inhaler] methocarbamoL [Robaxin] 500 mg PO TID PRN #25 tab 02/10/23 Allergies Allergy/AdvReac Type Severity Reaction Status Date / Time atorvastatin [From Lipitor] Allergy Swelling Verified 03/22/23 15:30 buprenorphine [From Butrans] Allergy pain Verified 03/22/23 15:30 carisoprodol [From Soma] Allergy Unknown Verified 03/22/23 15:30 chlorpromazine Allergy Unknown Verified 03/22/23 15:30 [From Thorazine] ciprofloxacin [From Cipro] Allergy Unknown Verified 03/22/23 15:30 clonazepam [From Klonopin] Allergy Unknown Verified 03/22/23 15:30 cyclobenzaprine Allergy Unknown Verified 03/22/23 15:30 [From Flexeril] metoclopramide [From Reglan] Allergy Anaphylaxis Verified 03/22/23 15:30 metronidazole [From Flagyl] Allergy Anaphylaxis Verified 03/22/23 15:30 morphine Allergy Rash/Hives Verified 03/22/23 15:30 naproxen Allergy Unknown Verified 03/22/23 15:30 oxycodone [From OxyContin] Allergy Hallucinati Verified 03/22/23 15:30 ons papaya Allergy Rash/Hives Verified 03/22/23 15:30 prednisone Allergy Anaphylaxis Verified 03/22/23 15:30 prochlorperazine Allergy Anaphylaxis Verified 03/22/23 15:30 [From Compazine] red dye Allergy Rash/Hives Verified 03/22/23 15:30 venom-honey bee Allergy Anaphylaxis Verified 03/22/23 15:30 [bee venom (honey bee)] ketorolac [From Toradol] AdvReac Severe Abdominal Verified 03/22/23 15:30 Pain baclofen AdvReac Twitching Verified 03/22/23 15:30 buspirone [From BuSpar] AdvReac Confusion Verified 03/22/23 15:30 ibuprofen [From Motrin] AdvReac Abdominal Verified 03/22/23 15:30 Pain meperidine [From Demerol] AdvReac Rapid Verified 03/22/23 15:30 Heart Rate Phenothiazines AdvReac Altered Verified 03/22/23 15:30 Mental Status sulfamethoxazole AdvReac Rash/Hives Verified 03/22/23 15:30 [From Bactrim] trimethoprim [From Bactrim] AdvReac Rash/Hives Verified 03/22/23 15:30 Review of Systems ROS Statement: Those systems with pertinent positive or pertinent negative responses have been documented in the HPI. ROS Other: All systems not noted in ROS Statement are negative. Constitutional: Denies: fever, chills Respiratory: Denies: cough, dyspnea Cardiovascular: Denies: chest pain, palpitations, edema Gastrointestinal: Reports: abdominal pain, nausea, vomiting. Denies: diarrhea, constipation, melena, hematochezia Genitourinary: Denies: dysuria, hematuria Musculoskeletal: Denies: back pain Skin: Denies: rash Neurological: Denies: headache, weakness Past Medical History Past Medical History: Asthma, Cancer, COPD, GERD/Reflux, Hypertension, Pneumonia, Thyroid Disorder Additional Past Medical History / Comment(s): shingles, RT BREAST LUMPECTOMY/CA NCER, THYROID REMOVE, CATARACTS, BRONCHITIS, MONO TEENAGER, LITE CASE OF POLIO AGE 8, MELANOMA SKIN CANCER REMOVED, r shoulder rotator tear, abd hernia 2022, chronic knee pain History of Any Multi-Drug Resistant Organisms: MRSA Date of last positivie culture/infection: 2009 MDRO Source:: LEFT ULNAR BONE, kidneys Past Surgical History: Appendectomy, Back Surgery, Cholecystectomy, Orthopedic Surgery Additional Past Surgical History / Comment(s): EYE SX FOR LAZY EYE, SX ON TEAR DUCTS, BACK SURGERY MICRO DISC, LT WRIST BROKEN 9 GALLO HAD 13 Surgeries TO CORRECT, left shoulder and humorous shattered from a fall with 2 surgeries to correct, LAPROSCOPIES- BENIGN TUNOR SIZE OF GRAPFRUIT REMOVED AGE 11 OR 1, RT BREAST BX/LUMPECTOMY,LT PINK FINGER SX TO STRAIGHTEN.MELANOMA SKIN CANCER REMOVED. Past Anesthesia/Blood Transfusion Reactions: No Reported Reaction Additional Past Anesthesia/Blood Transfusion Reaction / Comment(s): CLAUSTERPHOBIA Past Psychological History: Anxiety, Depression, PTSD Smoking Status: Never smoker Past Alcohol Use History: None Reported Past Drug Use History: None Reported - Past Family History Mother Family Medical History: Asthma Additional Family Medical History / Comment(s): ETOH/SMOKER Father Family Medical History: Cancer, Liver Disease Additional Family Medical History / Comment(s): ESOPHOGEAL CANCER, ETOH General Exam Limitations: no limitations General appearance: alert, in no apparent distress Head exam: Present: atraumatic, normocephalic Eye exam: Present: normal appearance. Absent: scleral icterus, conjunctival injection ENT exam: Present: normal oropharynx Neck exam: Present: normal inspection Respiratory exam: Present: normal lung sounds bilaterally. Absent: respiratory distress, wheezes, rales, rhonchi, stridor Cardiovascular Exam: Present: regular rate, normal rhythm, normal heart sounds. Absent: systolic murmur, diastolic murmur, rubs, gallop GI/Abdominal exam: Present: soft, tenderness. Absent: distended, guarding, rebound, rigid, mass, pulsatile mass, hernia Extremities exam: Present: normal inspection, normal capillary refill. Absent: pedal edema, calf tenderness Back exam: Present: normal inspection. Absent: CVA tenderness (R), CVA tenderness (L) Neurological exam: Present: alert Skin exam: Present: warm, dry, intact, normal color. Absent: rash Course Vital Signs 05/02/23 05/02/23 03:26 06:00 Temperature 97.7 F Pulse Rate 63 64 Respiratory 16 18 Rate Blood Pressure 143/101 131/65 O2 Sat by Pulse 100 99 Oximetry Medical Decision Making - Lab Data Result diagrams: 05/02/23 04:08 05/02/23 04:08 Lab Results 05/02/23 05/02/23 05/02/23 Range/Units 04:08 04:08 04:08 WBC 13.6 H (3.8-10.6) k/uL RBC 3.92 (3.80-5.40) m/uL Hgb 11.7 (11.4-16.0) gm/dL Hct 36.8 (34.0-46.0) % MCV 94.0 (80.0-100.0) fL MCH 29.8 (25.0-35.0) pg MCHC 31.7 (31.0-37.0) g/dL RDW 15.4 (11.5-15.5) % Plt Count 305 (150-450) k/uL MPV 10.4 Neutrophils % 76 % Lymphocytes % 13 % Monocytes % 7 % Eosinophils % 1 % Basophils % 1 % Neutrophils # 10.3 H (1.3-7.7) k/uL Lymphocytes # 1.8 (1.0-4.8) k/uL Monocytes # 1.0 (0-1.0) k/uL Eosinophils # 0.1 (0-0.7) k/uL Basophils # 0.1 (0-0.2) k/uL Hypochromasia Slight Sodium 138 (137-145) mmol/L Potassium 4.5 (3.5-5.1) mmol/L Chloride 101 (98-107) mmol/L Carbon Dioxide 20 L (22-30) mmol/L Anion Gap 17 mmol/L BUN 56 H (7-17) mg/dL Creatinine 2.75 H (0.52-1.04) mg/dL Est GFR (CKD-EPI)AfAm 19 (>60 ml/min/1.73 sqM) Est GFR (CKD-EPI)NonAf 16 (>60 ml/min/1.73 sqM) Glucose 104 H (74-99) mg/dL Plasma Lactic Acid Noman 0.7 (0.7-2.0) mmol/L Calcium 9.6 (8.4-10.2) mg/dL Total Bilirubin 0.5 (0.2-1.3) mg/dL AST 40 H (14-36) U/L ALT 26 (4-34) U/L Alkaline Phosphatase 138 H (38-126) U/L C-Reactive Protein 0.7 (<1.0) mg/dL Total Protein 7.6 (6.3-8.2) g/dL Albumin 4.6 (3.5-5.0) g/dL Amylase 167 H (30-110) U/L Lipase 229 (23-300) U/L Disposition Clinical Impression: Abdominal pain, Acute kidney injury Disposition: ADMITTED IP TO THIS HOSP Condition: Fair Is patient prescribed a controlled substance at d/c from ED?: No Referrals: Matty Brown MD [Primary Care Provider] - 1-2 days
[2023-05-02] MEDS ORDERED: HYDROmorphone 0.5 MG/0.5 ML SYRINGE IVP PRN ×2 (07:36→07:48)
[2023-05-02] MEDS ORDERED: NALOXONE 0.4 MG/ML 1 ML VIAL IV PRN (07:36)
[2023-05-02] MEDS ORDERED: ONDANSETRON 4 MG/2 ML VIAL IVP PRN (07:36)
[2023-05-02] MEDS ORDERED: ACETAMINOPHEN TAB 325 MG TAB PO PRN (07:36)
[2023-05-02] MEDS ORDERED: MAG HYDROX/AL HYDROX/SIMETH 30 ML CUP PO PRN (07:36)
[2023-05-02 10:08] LABS: Appearance,Urine Clear (Clear); Bilirubin,Urine Negative (Negative); Blood,Urine Negative (Negative); Color,Urine Yellow; Glucose,Urine (UA) Negative (Negative); Hyaline Casts,Urine 8 /lpf (0-2); Ketones,Urine Negative (Negative); Leukocyte Esterase,Urine Negative (Negative); Mucus,Urine Occasional /hpf; Nitrite,Urine Negative (Negative); Protein,Urine 1+ (Negative); Specific Gravity,Urine 1.026 (1.001-1.035); Squamous Epithelial Cell,Urine 1 /hpf (0-4); Urobilinogen,Urine <2.0 mg/dL (<2.0); WBC,Urine 1 /hpf (0-5)
[2023-05-02] MEDS: SODIUM CHLORIDE 0.9% 1,000 ML IV SCH ×2 (10:34→17:05)
[2023-05-02] MEDS: FAMOTIDINE 20 MG TAB PO SCH (10:36)
--- NOTE | 2023-05-02 11:53 | P.NPCON ---
History of Present Illness - Reason for Consult acute renal failure - History of Present Illness Patient is a 72-year-old female with history of hypertension, COPD and history of breast cancer who was admitted to the hospital with complaints of abdominal pain as well as pain in her legs. No history of fever or chills Blood pressure is not significantly low Serum creatinine was 2.75 and previous creatinine was 1.0 on 12/02/2022. Maintained on losartan and hydrochlorothiazide prior to admission. No NSAIDs noted. Patient is voiding. Review of Systems As per HPI Past Medical History Past Medical History: Asthma, Cancer, COPD, GERD/Reflux, Hypertension, Pneumonia, Thyroid Disorder Additional Past Medical History / Comment(s): shingles, RT BREAST LUMPECTOMY/CANCER, THYROID REMOVE, CATARACTS, BRONCHITIS, MONO TEENAGER, LITE CASE OF POLIO AGE 8, MELANOMA SKIN CANCER REMOVED, r shoulder rotator tear, abd hernia 2022, chronic knee pain History of Any Multi-Drug Resistant Organisms: MRSA Date of last positivie culture/infection: 2009 MDRO Source:: LEFT ULNAR BONE, kidneys Past Surgical History: Appendectomy, Back Surgery, Cholecystectomy, Orthopedic Surgery Additional Past Surgical History / Comment(s): EYE SX FOR LAZY EYE, SX ON TEAR DUCTS, BACK SURGERY MICRO DISC, LT WRIST BROKEN 9 GALLO HAD 13 Surgeries TO CORRECT, left shoulder and humorous shattered from a fall with 2 surgeries to correct, LAPROSCOPIES- BENIGN TUNOR SIZE OF GRAPFRUIT REMOVED AGE 11 OR 1, RT BREAST BX/LUMPECTOMY,LT PINK FINGER SX TO STRAIGHTEN.MELANOMA SKIN CANCER REMOVED. Past Anesthesia/Blood Transfusion Reactions: No Reported Reaction Additional Past Anesthesia/Blood Transfusion Reaction / Comment(s): CLAUSTERPHOBIA Past Psychological History: Anxiety, Depression, PTSD Smoking Status: Never smoker Past Alcohol Use History: None Reported Past Drug Use History: None Reported - Past Family History Mother Family Medical History: Asthma Additional Family Medical History / Comment(s): ETOH/SMOKER Father Family Medical History: Cancer, Liver Disease Additional Family Medical History / Comment(s): ESOPHOGEAL CANCER, ETOH Medications and Allergies Home Medications Medication Instructions Recorded Confirmed Type Pantoprazole Sodium [Protonix] 40 mg PO BID 04/09/16 09/21/22 History EPINEPHrine [Epipen 2-River] 0.3 mg IM ONCE PRN 11/16/16 09/21/22 History Sucralfate [Carafate] 1 gm PO ACHS 12/13/16 09/21/22 History Losartan Potassium 50 mg PO BID 09/16/17 09/21/22 History diazePAM [Valium] 5 mg PO DAILY PRN 09/16/17 09/21/22 History Levothyroxine Sodium [Synthroid] 88 mcg PO DAILY 04/24/18 09/21/22 History buPROPion HCL [Wellbutrin SR] 200 mg PO BID 08/11/18 09/21/22 History hydroCHLOROthiazide 12.5 mg PO DAILY 09/12/18 09/21/22 History Albuterol Sulfate [Proair Hfa] 1 - 2 puff INHALATION RT-Q4H PRN 03/21/19 09/21/22 History diphenhydrAMINE [Benadryl] 50 mg PO HS 03/21/19 09/21/22 History Ascorbic Acid [Vitamin C] 1,000 mg PO DAILY 12/12/20 09/21/22 History Fexofenadine HCl [[place] Allergy] 180 mg PO BID 12/12/20 09/21/22 History valACYclovir HCL [Valtrex] 500 mg PO BID 12/12/20 09/21/22 History Biotin Gummy 1 tab PO DAILY 06/17/21 09/21/22 History HYDROcodone/APAP 7.5-325MG [[place] 1 tab PO BID 06/17/21 09/21/22 History 7.5-325] Metoprolol Tartrate [Lopressor] 25 mg PO BID 06/17/21 09/21/22 History Multivitamin [Multivitamins Adult 1 tab PO DAILY 06/17/21 09/21/22 History Gummies] Ondansetron Odt [Zofran Odt] 4 mg PO Q8HR PRN #10 tab 09/07/22 09/21/22 Rx DULoxetine HCL [Cymbalta] 120 mg PO DAILY 09/21/22 09/21/22 History Albuterol Inhaler [Ventolin Hfa 2 puff INHALATION Q6H PRN #1 each 02/06/23 Rx Inhaler] methocarbamoL [Robaxin] 500 mg PO TID PRN #25 tab 02/10/23 Rx Allergies Allergy/AdvReac Type Severity Reaction Status Date / Time atorvastatin [From Lipitor] Allergy Swelling Verified 03/22/23 15:30 buprenorphine [From Butrans] Allergy pain Verified 03/22/23 15:30 carisoprodol [From Soma] Allergy Unknown Verified 03/22/23 15:30 chlorpromazine Allergy Unknown Verified 03/22/23 15:30 [From Thorazine] ciprofloxacin [From Cipro] Allergy Unknown Verified 03/22/23 15:30 clonazepam [From Klonopin] Allergy Unknown Verified 03/22/23 15:30 cyclobenzaprine Allergy Unknown Verified 03/22/23 15:30 [From Flexeril] metoclopramide [From Reglan] Allergy Anaphylaxis Verified 03/22/23 15:30 metronidazole [From Flagyl] Allergy Anaphylaxis Verified 03/22/23 15:30 morphine Allergy Rash/Hives Verified 03/22/23 15:30 naproxen Allergy Unknown Verified 03/22/23 15:30 oxycodone [From OxyContin] Allergy Hallucinati Verified 03/22/23 15:30 ons papaya Allergy Rash/Hives Verified 03/22/23 15:30 prednisone Allergy Anaphylaxis Verified 03/22/23 15:30 prochlorperazine Allergy Anaphylaxis Verified 03/22/23 15:30 [From Compazine] red dye Allergy Rash/Hives Verified 03/22/23 15:30 venom-honey bee Allergy Anaphylaxis Verified 03/22/23 15:30 [bee venom (honey bee)] ketorolac [From Toradol] AdvReac Severe Abdominal Verified 03/22/23 15:30 Pain baclofen AdvReac Twitching Verified 03/22/23 15:30 buspirone [From BuSpar] AdvReac Confusion Verified 03/22/23 15:30 ibuprofen [From Motrin] AdvReac Abdominal Verified 03/22/23 15:30 Pain meperidine [From Demerol] AdvReac Rapid Verified 03/22/23 15:30 Heart Rate Phenothiazines AdvReac Altered Verified 03/22/23 15:30 Mental Status sulfamethoxazole AdvReac Rash/Hives Verified 03/22/23 15:30 [From Bactrim] trimethoprim [From Bactrim] AdvReac Rash/Hives Verified 03/22/23 15:30 Physical Exam Vitals: Vital Signs Temp Pulse Resp BP Pulse Ox 05/02/23 10:50 97.9 F 64 14 114/63 100 05/02/23 10:00 62 14 120/59 100 05/02/23 09:00 62 14 118/58 100 05/02/23 08:00 63 14 120/63 100 05/02/23 06:00 64 18 131/65 99 05/02/23 03:26 97.7 F 63 16 143/101 100 Intake and Output 05/01/23 05/02/23 05/02/23 22:59 06:59 14:59 Other: Weight 68.946 kg Patient is awake, comfortable, no acute distress Examination of the heart S1 and S2 Examination the lungs bilateral breath sounds are heard Abdomen is soft nontender Examination of lower extremity shows no evidence of edema [employer] exam grossly intact Results - Lab Results Most recent lab results Calcium 9.6 mg/dL (8.4-10.2) 05/02/23 04:08 05/02/23 04:08 05/02/23 04:08 Assessment and Plan Assessment: 1. Acute kidney injury most likely ATN, currently nonoliguric. UA is benign with 1+ protein and no blood or cells. Underlying component of hypovolemia. Currently maintained on IV fluids. 2. Abdominal pain with unremarkable CT of the abdomen 3. History of hypertension maintained on losartan and hydrochlorothiazide prior to admission. Currently on hold Plan: Continue IV fluids Repeat labs in a.m. Continue to hold angiotensin receptor blockers and diuretics. Thank you for the consultation. We will continue to follow the patient with you during her hospitalization.
[2023-05-02] MEDS: HYDROmorphone 0.5 MG/0.5 ML SYRINGE IVP PRN ×3 (13:41→21:51)
[2023-05-02] MEDS ORDERED: ONDANSETRON 4 MG TAB PO PRN (18:42)
[2023-05-02] MEDS ORDERED: NITROGLYCERIN SL TABS 0.4 MG TAB SUBLINGUAL PRN (18:42)
[2023-05-02] MEDS ORDERED: ALBUTEROL NEBULIZED 2.5 MG/3 ML INHALATION PRN (18:42)
--- NOTE | 2023-05-02 18:58 | P.GSCN ---
History of Present Illness Consult date: 05/02/23 History of present illness: Patient comes in with 2 month history of abdominal pain of the left lower quadrant. She reports pain is improved with bowel movements. She tolerated clear liquid diet. CT reviewed. No acute surgical intervention needed. Past Medical History Past Medical History: Asthma, Cancer, COPD, GERD/Reflux, Hypertension, Pneumonia, Thyroid Disorder Additional Past Medical History / Comment(s): shingles, RT BREAST LUMPECTOMY/CANCER, THYROID REMOVE, CATARACTS, BRONCHITIS, MONO TEENAGER, LITE CASE OF POLIO AGE 8, MELANOMA SKIN CANCER REMOVED, r shoulder rotator tear, abd hernia 2022, chronic knee pain History of Any Multi-Drug Resistant Organisms: MRSA Year Discovered:: 2009 MDRO Source:: LEFT ULNAR BONE, kidneys Past Surgical History: Appendectomy, Back Surgery, Cholecystectomy, Orthopedic Surgery Additional Past Surgical History / Comment(s): EYE SX FOR LAZY EYE, SX ON TEAR DUCTS, BACK SURGERY MICRO DISC, LT WRIST BROKEN 9 GALLO HAD 13 Surgeries TO CORRECT, left shoulder and humorous shattered from a fall with 2 surgeries to correct, LAPROSCOPIES- BENIGN TUNOR SIZE OF GRAPFRUIT REMOVED AGE 11 OR 1, RT BREAST BX/LUMPECTOMY,LT PINK FINGER SX TO STRAIGHTEN.MELANOMA SKIN CANCER REMOVED. Past Anesthesia/Blood Transfusion Reactions: No Reported Reaction Additional Past Anesthesia/Blood Transfusion Reaction / Comm: CLAUSTERPHOBIA Past Psychological History: Anxiety, Depression, PTSD Smoking Status: Never smoker Past Alcohol Use History: None Reported Past Drug Use History: None Reported - Past Family History Mother Family Medical History: Asthma Additional Family Medical History / Comment(s): ETOH/SMOKER Father Family Medical History: Cancer, Liver Disease Additional Family Medical History / Comment(s): ESOPHOGEAL CANCER, ETOH Medications and Allergies Home Medications Medication Instructions Recorded Confirmed Type Pantoprazole Sodium [Protonix] 40 mg PO BID 04/09/16 05/02/23 History EPINEPHrine [Epipen 2-River] 0.3 mg IM ONCE PRN 11/16/16 05/02/23 History Sucralfate [Carafate] 1 gm PO ACHS 12/13/16 05/02/23 History Losartan Potassium 50 mg PO BID 09/16/17 05/02/23 History diazePAM [Valium] 5 mg PO DAILY PRN 09/16/17 05/02/23 History Levothyroxine Sodium [Synthroid] 88 mcg PO DAILY 04/24/18 05/02/23 History buPROPion HCL [Wellbutrin SR] 200 mg PO BID 08/11/18 05/02/23 History hydroCHLOROthiazide 12.5 mg PO DAILY 09/12/18 05/02/23 History diphenhydrAMINE [Benadryl] 50 mg PO HS 03/21/19 05/02/23 History Ascorbic Acid [Vitamin C] 1,000 mg PO DAILY 12/12/20 05/02/23 History Fexofenadine HCl [[place] Allergy] 180 mg PO BID 12/12/20 05/02/23 History Biotin Gummy 1 tab PO DAILY 06/17/21 05/02/23 History Multivitamin [Multivitamins Adult 1 tab PO DAILY 06/17/21 05/02/23 History Gummies] DULoxetine HCL [Cymbalta] 120 mg PO DAILY 09/21/22 05/02/23 History methocarbamoL [Robaxin] 500 mg PO TID PRN #25 tab 02/10/23 05/02/23 Rx Albuterol Inhaler [Ventolin Hfa 2 puff INHALATION RT-Q6H PRN 05/02/23 05/02/23 History Inhaler] Amoxicillin 250 mg PO Q8H 05/02/23 05/02/23 History HYDROcodone/APAP 10-325MG [[place] 1 tab PO BID 05/02/23 05/02/23 History 10-325] Ibuprofen [Motrin] 800 mg PO Q8H PRN 05/02/23 05/02/23 History Metoprolol Tartrate [Lopressor] 50 mg PO BID 05/02/23 05/02/23 History Nitroglycerin Sl Tabs [Nitrostat] 0.4 mg SUBLINGUAL Q5M PRN 05/02/23 05/02/23 History Ondansetron [Zofran] 4 mg PO Q8HR PRN 05/02/23 05/02/23 History valACYclovir HCL [Valtrex] 500 mg PO BID 05/02/23 05/02/23 History Allergies Allergy/AdvReac Type Severity Reaction Status Date / Time atorvastatin [From Lipitor] Allergy Swelling Verified 05/02/23 11:50 buprenorphine [From Butrans] Allergy pain Verified 05/02/23 11:50 carisoprodol [From Soma] Allergy Unknown Verified 05/02/23 11:50 chlorpromazine Allergy Unknown Verified 05/02/23 11:50 [From Thorazine] ciprofloxacin [From Cipro] Allergy Unknown Verified 05/02/23 11:50 clonazepam [From Klonopin] Allergy Unknown Verified 05/02/23 11:50 cyclobenzaprine Allergy Unknown Verified 05/02/23 11:50 [From Flexeril] metoclopramide [From Reglan] Allergy Anaphylaxis Verified 05/02/23 11:50 metronidazole [From Flagyl] Allergy Anaphylaxis Verified 05/02/23 11:50 morphine Allergy Rash/Hives Verified 05/02/23 11:50 naproxen Allergy Unknown Verified 05/02/23 11:50 oxycodone [From OxyContin] Allergy Hallucinati Verified 05/02/23 11:50 ons papaya Allergy Rash/Hives Verified 05/02/23 11:50 prednisone Allergy Anaphylaxis Verified 05/02/23 11:50 prochlorperazine Allergy Anaphylaxis Verified 05/02/23 11:50 [From Compazine] red dye Allergy Rash/Hives Verified 05/02/23 11:50 venom-honey bee Allergy Anaphylaxis Verified 05/02/23 11:50 [bee venom (honey bee)] ketorolac [From Toradol] AdvReac Severe Abdominal Verified 05/02/23 11:50 Pain baclofen AdvReac Twitching Verified 05/02/23 11:50 buspirone [From BuSpar] AdvReac Confusion Verified 05/02/23 11:50 ibuprofen [From Motrin] AdvReac Abdominal Verified 05/02/23 11:50 Pain meperidine [From Demerol] AdvReac Rapid Verified 05/02/23 11:50 Heart Rate Phenothiazines AdvReac Altered Verified 05/02/23 11:50 Mental Status sulfamethoxazole AdvReac Rash/Hives Verified 05/02/23 11:50 [From Bactrim] trimethoprim [From Bactrim] AdvReac Rash/Hives Verified 05/02/23 11:50 Surgical - Exam Vital Signs Temp Pulse Resp BP Pulse Ox 97.7 F 63 16 143/101 100 05/02/23 03:26 05/02/23 03:26 05/02/23 03:26 05/02/23 03:26 05/02/23 03:26 Results - Labs 05/02/23 04:08 05/02/23 04:08 Abnormal Lab Results - Last 24 Hours (Table) 05/02/23 05/02/23 05/02/23 Range/Units 04:08 04:08 06:08 WBC 13.6 H (3.8-10.6) k/uL Neutrophils # 10.3 H (1.3-7.7) k/uL Carbon Dioxide 20 L (22-30) mmol/L BUN 56 H (7-17) mg/dL Creatinine 2.75 H (0.52-1.04) mg/dL Glucose 104 H (74-99) mg/dL Osmolality 305 H (280-301) mosm/kg AST 40 H (14-36) U/L Alkaline Phosphatase 138 H (38-126) U/L Amylase 167 H (30-110) U/L Urine Protein (Negative) Hyaline Casts (0-2) /lpf Urine Mucus (None) /hpf 05/02/23 Range/Units 09:45 WBC (3.8-10.6) k/uL Neutrophils # (1.3-7.7) k/uL Carbon Dioxide (22-30) mmol/L BUN (7-17) mg/dL Creatinine (0.52-1.04) mg/dL Glucose (74-99) mg/dL Osmolality (280-301) mosm/kg AST (14-36) U/L Alkaline Phosphatase (38-126) U/L Amylase (30-110) U/L Urine Protein 1+ H (Negative) Hyaline Casts 8 H (0-2) /lpf Urine Mucus Occasional H (None) /hpf Diabetes panel 05/02/23 Range/Units 04:08 Sodium 138 (137-145) mmol/L Potassium 4.5 (3.5-5.1) mmol/L Chloride 101 (98-107) mmol/L Carbon Dioxide 20 L (22-30) mmol/L BUN 56 H (7-17) mg/dL Creatinine 2.75 H (0.52-1.04) mg/dL Glucose 104 H (74-99) mg/dL Calcium 9.6 (8.4-10.2) mg/dL AST 40 H (14-36) U/L ALT 26 (4-34) U/L Alkaline Phosphatase 138 H (38-126) U/L Total Protein 7.6 (6.3-8.2) g/dL Albumin 4.6 (3.5-5.0) g/dL Calcium panel 05/02/23 Range/Units 04:08 Calcium 9.6 (8.4-10.2) mg/dL Albumin 4.6 (3.5-5.0) g/dL Pituitary panel 05/02/23 Range/Units 04:08 Sodium 138 (137-145) mmol/L Potassium 4.5 (3.5-5.1) mmol/L Chloride 101 (98-107) mmol/L Carbon Dioxide 20 L (22-30) mmol/L BUN 56 H (7-17) mg/dL Creatinine 2.75 H (0.52-1.04) mg/dL Glucose 104 H (74-99) mg/dL Calcium 9.6 (8.4-10.2) mg/dL Adrenal panel 05/02/23 Range/Units 04:08 Sodium 138 (137-145) mmol/L Potassium 4.5 (3.5-5.1) mmol/L Chloride 101 (98-107) mmol/L Carbon Dioxide 20 L (22-30) mmol/L BUN 56 H (7-17) mg/dL Creatinine 2.75 H (0.52-1.04) mg/dL Glucose 104 H (74-99) mg/dL Calcium 9.6 (8.4-10.2) mg/dL Total Bilirubin 0.5 (0.2-1.3) mg/dL AST 40 H (14-36) U/L ALT 26 (4-34) U/L Alkaline Phosphatase 138 H (38-126) U/L Total Protein 7.6 (6.3-8.2) g/dL Albumin 4.6 (3.5-5.0) g/dL
[2023-05-02] MEDS: diazePAM 5 MG TAB PO PRN (20:26)
[2023-05-02] MEDS: METOPROLOL TARTRATE 50 MG TAB PO SCH (20:27)
[2023-05-02] MEDS: PANTOPRAZOLE 40 MG TABLET PO SCH (20:27)
[2023-05-02] MEDS: LORATADINE 10 MG TAB PO SCH (20:27)
[2023-05-02] MEDS: HYDROcodone/APAP 10-325MG 1 EACH TAB PO SCH (20:27)
[2023-05-02] MEDS: LOSARTAN 50 MG TAB PO SCH (20:27)
[2023-05-02] MEDS: LACTULOSE 20 GM/30 ML CUP PO SCH (20:28)
[2023-05-02] MEDS: buPROPion SR 100 MG TABLET.ER PO SCH (21:51)
[2023-05-02] MEDS: SUCRALFATE 1 GM TAB PO SCH (21:51)
[2023-05-02] MEDS: MAGNESIUM HYDROXIDE 2,400 MG/30 ML CUP PO SCH (21:52)
--- NOTE | 2023-05-02 22:17 | HP ---
HISTORY AND PHYSICAL CHIEF COMPLAINT: Abdominal pain. HISTORY OF PRESENT ILLNESS: This is a first known admission for this 72-year-old white female. She presented to the emergency room with lower abdominal pain. In the past, she had a normal creatinine of 1. When she came in this time, her creatinine was 2.75 and a BUN of 56 with a GFR of 16. The pain was lower, but she did not have any fever, chills, nausea, vomiting, diarrhea, melena, urinary complaints, etc. CT of the abdomen and pelvis done in the emergency room was normal. She is admitted for followup of her abdominal pain and further workup. In the [place] room[place] [address]. She had an amylase of 167. AST was up slightly at 40 and the ALT was 26. Alkaline phosphatase was up slightly at 138. She has had a cholecystectomy. REVIEW OF SYSTEMS: Otherwise unremarkable. Past medical history, family history, and personal and social histories are unremarkable. She is on numerous medications including analgesics. She also has many allergies. PHYSICAL EXAMINATION: VITAL SIGNS: Normal. She is afebrile. GENERAL: She appeared to be well hydrated and not in any acute distress. HEAD, EARS, EYES, NOSE, MOUTH AND THROAT: Normal. NECK: Normal with no neck vein distention. CHEST: Clear. CARDIAC: Demonstrated normal sinus rhythm and no murmurs or extra sounds. ABDOMEN: Slightly protuberant, soft and seemed to be slightly tender in the lower abdomen. There were no definite masses or visceromegaly and there was no rebound. Bowel sounds were normal. EXTREMITIES: Normal. IMPRESSION: 1. Abdominal pain, etiology unknown. 2. Acute kidney disease, stage IV. 3. Elevated alkaline phosphatase and amylase. 4. Leukocytosis. PLAN: 1. Bed rest. 2. IV fluids. 3. Follow abdominal findings with blood work. 4. Consult with Surgery and Nephrology. MMODL / IJN: [id number] /
[2023-05-03] MEDS: SODIUM CHLORIDE 0.9% 1,000 ML IV SCH ×4 (00:28→22:48)
[2023-05-03] MEDS: HYDROmorphone 0.5 MG/0.5 ML SYRINGE IVP PRN ×4 (02:00→21:29)
[2023-05-03] MEDS: PANTOPRAZOLE 40 MG TABLET PO SCH ×2 (06:16→17:37)
[2023-05-03] MEDS: SUCRALFATE 1 GM TAB PO SCH ×4 (06:16→20:18)
[2023-05-03] MEDS: LEVOTHYROXINE 88 MCG TAB PO SCH (06:37)
--- NOTE | 2023-05-03 08:43 | P.PN ---
Subjective Progress Note Date: 05/03/23 She reports spasms when she is constipated. Symptoms improve with bowel movements. REcommend laxatives Lactulose 40 g PO and Milk of Magnesia 2400 BID today for left lower quadrant pain and constipation. May need colonoscopy. Objective - Vital Signs Vital signs: Vital Signs Temp 98.3 F 05/03/23 01:15 Pulse 70 05/03/23 01:15 Resp 17 05/03/23 01:15 BP 122/56 05/03/23 01:15 Pulse Ox 99 05/03/23 01:15 FiO2 Intake & Output 05/02/23 05/03/23 05/03/23 18:59 06:59 18:59 Intake Total 1600 Output Total 550 Balance 1050 Weight 68.946 kg Intake: Intake, IV Titration 1300 Amount Sodium Chloride 0.9% 1, 1300 000 ml @ 130 mls/hr IV . Q7H42M [facility] Rx#:[id number] Oral 300 Output: Urine 550 Other: Voiding Method External Catheter - Labs CBC & Chem 7: 05/02/23 04:08 05/02/23 04:08 Labs: Abnormal Lab Results - Last 24 Hours (Table) 05/02/23 05/02/23 Range/Units 06:08 09:45 Osmolality 305 H (280-301) mosm/kg Urine Protein 1+ H (Negative) Hyaline Casts 8 H (0-2) /lpf Urine Mucus Occasional H (None) /hpf
[2023-05-03] MEDS ORDERED: hydroCHLOROthiazide 12.5 MG CAP PO SCH (09:00)
[2023-05-03] MEDS: FAMOTIDINE 20 MG TAB PO SCH (10:24)
[2023-05-03] MEDS: HYDROcodone/APAP 10-325MG 1 EACH TAB PO SCH ×2 (10:24→20:16)
[2023-05-03] MEDS: LOSARTAN 50 MG TAB PO SCH (10:24)
[2023-05-03] MEDS: METOPROLOL TARTRATE 50 MG TAB PO SCH ×2 (10:24→20:16)
[2023-05-03] MEDS: DULoxetine HCL 60 MG CAPSULE.DR PO SCH (10:24)
[2023-05-03] MEDS: buPROPion SR 100 MG TABLET.ER PO SCH ×2 (10:25→20:16)
[2023-05-03] MEDS: MAGNESIUM HYDROXIDE 2,400 MG/30 ML CUP PO SCH (10:26)
[2023-05-03] MEDS: LACTULOSE 20 GM/30 ML CUP PO SCH ×2 (10:26→20:30)
[2023-05-03 12:28] LABS: ALT 21 U/L (4-34); AST 33 U/L (14-36); African American GFR (CKD) 79 (>60 ml/min/1.73 sqM); Albumin 3.4 g/dL (3.5-5.0); Albumin/Globulin Ratio 1.4; Alkaline Phosphatase 109 U/L (38-126); Anion Gap 10 mmol/L; Blood Urea Nitrogen 19 mg/dL (7-17); Calcium 8.3 mg/dL (8.4-10.2); Carbon Dioxide 20 mmol/L (22-30); Chloride 109 mmol/L (98-107); Globulin 2.5 g/dL; Glucose 88 mg/dL (74-99); Non-African American GFR(CKD) 69 (>60 ml/min/1.73 sqM); Sodium 139 mmol/L (137-145); Total Bilirubin 0.4 mg/dL (0.2-1.3); Total Protein 5.9 g/dL (6.3-8.2)
--- NOTE | 2023-05-03 12:29 | P.PN ---
Subjective Patient is seen for follow-up for acute kidney injury. Entertained on IV fluids. Repeat labs are pending Patient has had good urine output. She has an external catheter. Objective - Vital Signs Vital signs: Vital Signs Temp 99.2 F 05/03/23 07:33 Pulse 85 05/03/23 07:33 Resp 20 05/03/23 07:33 BP 136/65 05/03/23 07:33 Pulse Ox 98 05/03/23 07:33 FiO2 Intake & Output 05/02/23 05/03/23 05/03/23 18:59 06:59 18:59 Intake Total 1600 Output Total 550 Balance 1050 Weight 68.946 kg Intake: Intake, IV Titration 1300 Amount Sodium Chloride 0.9% 1, 1300 000 ml @ 130 mls/hr IV . Q7H42M [facility] Rx#:[id number] Oral 300 Output: Urine 550 Other: Voiding Method External Catheter External Catheter - Exam Patient is awake, comfortable, no acute distress Examination of the heart S1 and S2 Examination the lungs bilateral breath sounds are heard Abdomen is soft nontender Examination of lower extremity shows no evidence of edema [employer] exam grossly intact - Labs CBC & Chem 7: 05/02/23 04:08 05/02/23 04:08 Assessment and Plan Assessment: 1. Acute kidney injury most likely ATN, currently nonoliguric. UA is benign with 1+ protein and no blood or cells. Underlying component of hypovolemia. Currently maintained on IV fluids. 2. Abdominal pain with unremarkable CT of the abdomen 3. History of hypertension maintained on losartan and hydrochlorothiazide prior to admission. Currently on hold Plan: Continue IV fluids Follow-up on labs from today Hold diuretics Decrease dose of Cozaar and add parameters
[2023-05-03 14:55] LABS: Basophils # (A) 0.04 X 10*3/uL (0.00-0.10); Basophils % (A) 0.6 %; Eosinophils # (A) 0.08 X 10*3/uL (0.04-0.35); Eosinophils % (A) 1.2 %; HCT 31.6 % (37.2-46.3); HGB 9.7 g/dL (12.0-15.0); Lymphocytes # (A) 1.53 X 10*3/uL (0.90-5.00); Lymphocytes % (A) 22.3 %; MCHC 30.7 g/dL (32.0-37.0); MCV 94.3 FL (80.0-97.0); Mean Platelet Volume 12.3 FL (9.5-12.2); Monocytes # (A) 0.73 X 10*3/uL (0.20-1.00); Monocytes % (A) 10.7 %; NRBC Per 100 WBC 0 X 10*3/uL (0.00-0.01); Neutrophils # (A) 4.45 X 10*3/uL (1.80-7.70); Neutrophils % (A) 64.9 %; Platelet Count 243 X 10*3/uL (140-440); RBC 3.35 X 10*6/uL (4.10-5.20); RDW 14.9 % (11.5-14.5); WBC 6.85 X 10*3/uL (4.50-10.00)
[2023-05-03] MEDS: LORATADINE 10 MG TAB PO SCH (20:16)
[2023-05-03] MEDS: LOSARTAN 25 MG TAB PO SCH (20:29)
[2023-05-03] MEDS: diazePAM 5 MG TAB PO PRN (22:30)
--- NOTE | 2023-05-04 02:40 | PN ---
PROGRESS NOTE DATE OF SERVICE: 05/03/2023 CHIEF COMPLAINT: Lower abdominal pain. HISTORY OF PRESENT ILLNESS: This lady is doing fairly well, but states she still has some lower abdominal pain. She is complaining of a sore throat. LABORATORY DATA: Laboratory studies seem to be normal. PHYSICAL EXAMINATION: CHEST: Clear. CARDIAC: Normal. ABDOMEN: Soft and nontender. IMPRESSION: 1. Lower abdominal pain. 2. Chronic kidney disease with a GFR of 16. PLAN: Repeat laboratory studies and continue with IV fluids. She is being seen by Nephrology. MMODL / IJN: [id number] /
[2023-05-04] MEDS: HYDROmorphone 0.5 MG/0.5 ML SYRINGE IVP PRN ×2 (04:03→16:54)
[2023-05-04] MEDS: LEVOTHYROXINE 88 MCG TAB PO SCH (06:03)
[2023-05-04] MEDS: PANTOPRAZOLE 40 MG TABLET PO SCH ×2 (06:40→16:54)
[2023-05-04] MEDS: SUCRALFATE 1 GM TAB PO SCH ×4 (06:40→19:58)
[2023-05-04] MEDS: SODIUM CHLORIDE 0.9% 1,000 ML IV SCH (06:41)
[2023-05-04] MEDS: HYDROcodone/APAP 10-325MG 1 EACH TAB PO SCH ×2 (07:48→19:57)
[2023-05-04] MEDS: FAMOTIDINE 20 MG TAB PO SCH (07:48)
[2023-05-04] MEDS: LOSARTAN 25 MG TAB PO SCH ×2 (07:48→19:58)
[2023-05-04] MEDS: DULoxetine HCL 60 MG CAPSULE.DR PO SCH (07:48)
[2023-05-04] MEDS: METOPROLOL TARTRATE 50 MG TAB PO SCH ×2 (07:49→19:58)
[2023-05-04] MEDS: MAGNESIUM HYDROXIDE 2,400 MG/30 ML CUP PO SCH (07:49)
[2023-05-04] MEDS: LACTULOSE 20 GM/30 ML CUP PO SCH ×2 (07:49→19:55)
[2023-05-04] MEDS: buPROPion SR 100 MG TABLET.ER PO SCH ×2 (07:50→19:58)
[2023-05-04] MEDS: diazePAM 5 MG TAB PO PRN (07:55)
--- NOTE | 2023-05-04 11:32 | P.PN ---
Subjective Patient is seen for follow-up for acute kidney injury. Maintained on IV fluids. Serum creatinine decreased to 0.8 mg/dL. Patient has had good urine output. She has an external catheter. No complaints today. Objective - Vital Signs Vital signs: Vital Signs Temp 98.7 F 05/04/23 07:12 Pulse 63 05/04/23 07:12 Resp 19 05/04/23 07:12 BP 145/67 05/04/23 07:12 Pulse Ox 97 05/04/23 07:12 FiO2 Intake & Output 05/03/23 05/04/23 05/04/23 18:59 06:59 18:59 Intake Total 1560 700 Output Total 1600 900 Balance 1560 -900 -900 Intake: Intake, IV Titration 1560 Amount Sodium Chloride 0.9% 1, 1560 000 ml @ 130 mls/hr IV . Q7H42M [facility] Rx#:[id number] Oral 700 Output: Urine 1600 900 Other: Voiding Method External Catheter External Catheter # Voids 3 - Exam Patient is awake, comfortable, no acute distress Examination of the heart S1 and S2 Examination the lungs bilateral breath sounds are heard Abdomen is soft nontender Examination of lower extremity shows no evidence of edema [employer] exam grossly intact - Labs CBC & Chem 7: 05/03/23 10:53 05/03/23 10:53 Labs: Abnormal Lab Results - Last 24 Hours (Table) 05/03/23 05/03/23 Range/Units 10:53 10:53 RBC 3.35 L (4.10-5.20) X 10*6/uL Hgb 9.7 L (12.0-15.0) g/dL Hct 31.6 L (37.2-46.3) % MCHC 30.7 L (32.0-37.0) g/dL RDW 14.9 H (11.5-14.5) % MPV 12.3 H (9.5-12.2) [place] Chloride 109 H (98-107) mmol/L Carbon Dioxide 20 L (22-30) mmol/L BUN 19 H (7-17) mg/dL Calcium 8.3 L (8.4-10.2) mg/dL Total Protein 5.9 L (6.3-8.2) g/dL Albumin 3.4 L (3.5-5.0) g/dL Assessment and Plan Assessment: 1. Acute kidney injury most likely ATN, currently nonoliguric. UA is benign with 1+ protein and no blood or cells. Underlying component of hypovolemia. Currently maintained on IV fluids. And creatinine down to 0.8 mg/dL. 2. Abdominal pain with unremarkable CT of the abdomen 3. History of hypertension maintained on losartan and hydrochlorothiazide prior to admission. Currently on hold Plan: Discontinue IV fluids Encourage increased oral intake
[2023-05-04 19:34] LABS: Amylase 60 U/L (23-121); Lipase 24 U/L (14-63)
[2023-05-04] MEDS: LORATADINE 10 MG TAB PO SCH (19:57)
--- NOTE | 2023-05-04 22:31 | P.PN ---
Subjective Progress Note Date: 05/04/23 Principal diagnosis: She reports having a bowel movement. No blood. She still reports LLQ pain. She is eager for discharge. No acute need for surgiical She reports spasms when she is constipated. Symptoms improve with bowel movements. REcommend laxatives Lactulose 40 g PO and Milk of Magnesia 2400 BID today for left lower quadrant pain and constipation. May need colonoscopy. Objective - Vital Signs Vital signs: Vital Signs Temp 98.7 F 05/04/23 20:00 Pulse 61 05/04/23 20:00 Resp 19 05/04/23 13:10 BP 133/79 05/04/23 20:00 Pulse Ox 96 05/04/23 20:00 FiO2 Intake & Output 05/04/23 05/04/23 05/05/23 06:59 18:59 06:59 Intake Total 700 Output Total 1600 1500 Balance -900 -1500 Intake: Oral 700 Output: Urine 1600 1500 Other: Voiding Method External Catheter # Voids 3 - Labs CBC & Chem 7: 05/03/23 10:53 05/03/23 10:53
[2023-05-05] MEDS: HYDROmorphone 0.5 MG/0.5 ML SYRINGE IVP PRN ×2 (00:36→06:31)
--- NOTE | 2023-05-05 00:52 | PN ---
PROGRESS NOTE CHIEF COMPLAINT: Abdominal pain. HISTORY OF PRESENT ILLNESS: This lady seems to be doing a little bit better. Pain is localized in the left lower quadrant now. GFR is suddenly gone from 16 to 88. Lipase and amylase are slightly elevated. These will be repeated. PHYSICAL EXAMINATION: VITAL SIGNS: Normal. CHEST: Clear. CARDIAC: Normal. ABDOMEN: She is tender in the left lower quadrant. IMPRESSION: 1. Lower abdominal pain, etiology unknown. 2. Elevated amylase and lipase. 3. Renal function restored normal. PLAN: Repeat laboratory studies, and increase activity and diet. MMODL / IJN: [id number] /
[2023-05-05] MEDS: LEVOTHYROXINE 88 MCG TAB PO SCH (05:44)
[2023-05-05] MEDS: PANTOPRAZOLE 40 MG TABLET PO SCH (06:31)
[2023-05-05] MEDS: SUCRALFATE 1 GM TAB PO SCH (06:31)
[2023-05-05 07:41] VITALS: BP 146/72; PULSE 64; RESP 20; TEMP 97.2
[2023-05-05] MEDS: LACTULOSE 20 GM/30 ML CUP PO SCH (09:06)
[2023-05-05] MEDS: LOSARTAN 25 MG TAB PO SCH (09:08)
[2023-05-05] MEDS: MAGNESIUM HYDROXIDE 2,400 MG/30 ML CUP PO SCH (09:08)
[2023-05-05] MEDS: HYDROcodone/APAP 10-325MG 1 EACH TAB PO SCH (09:08)
[2023-05-05] MEDS: FAMOTIDINE 20 MG TAB PO SCH (09:08)
[2023-05-05] MEDS: METOPROLOL TARTRATE 50 MG TAB PO SCH (09:09)
[2023-05-05] MEDS: DULoxetine HCL 60 MG CAPSULE.DR PO SCH (09:09)
[2023-05-05] MEDS: buPROPion SR 100 MG TABLET.ER PO SCH (09:12)
--- NOTE | 2023-05-05 13:29 | P.PN ---
Subjective Patient is seen for follow-up for acute kidney injury. Maintained on IV fluids. Serum creatinine decreased to 0.8 mg/dL. Patient has had good urine output. She has an external catheter. No complaints today. Objective - Vital Signs Vital signs: Vital Signs Temp 97.2 F L 05/05/23 07:19 Pulse 64 05/05/23 07:19 Resp 20 05/05/23 07:19 BP 146/72 05/05/23 07:19 Pulse Ox 98 05/05/23 07:19 FiO2 Intake & Output 05/04/23 05/05/23 05/05/23 18:59 06:59 18:59 Intake Total 800 Output Total 1500 1120 550 Balance -1500 -320 -550 Intake: Oral 800 Output: Urine 1500 1120 550 Other: Voiding Method External Catheter External Catheter - Exam Patient is awake, comfortable, no acute distress Examination of the heart S1 and S2 Examination the lungs bilateral breath sounds are heard Abdomen is soft nontender Examination of lower extremity shows no evidence of edema CLINICAL INFORMATICS SPEC exam grossly intact - Labs CBC & Chem 7: 05/03/23 10:53 05/03/23 10:53 Assessment and Plan Assessment: 1. Acute kidney injury most likely ATN, currently nonoliguric. UA is benign with 1+ protein and no blood or cells. Underlying component of hypovolemia. Currently maintained on IV fluids. And creatinine down to 0.8 mg/dL. 2. Abdominal pain with unremarkable CT of the abdomen 3. History of hypertension maintained on losartan and hydrochlorothiazide prior to admission. Currently on hold Plan: Patient can be discharged from nephrology standpoint. Encourage increased oral intake
--- NOTE | 2023-05-06 03:07 | DS ---
DISCHARGE SUMMARY CHIEF COMPLAINT: Abdominal pain. HISTORY OF PRESENT ILLNESS AND PHYSICAL EXAMINATION: Details of this lady's history and physical can be found in the initial workup. LABORATORY STUDIES: While she was in the hospital, she had laboratory studies, details of which can be found in the laboratory section of her chart. COURSE IN THE HOSPITAL: After admission, she was placed on bedrest, started on intravenous fluids and had serial monitoring of her vital signs, laboratory studies, and abdominal pain. The lower abdominal pain and tenderness subsided. She had no fever or chills. Kidney function improved. She was stable and it was felt she could be discharged on January 03 to outpatient management and further investigation. She will go home on her usual activity, diet, and medication and be seen in the office in several days. FINAL DIAGNOSES: 1. Left lower quadrant abdominal pain. 2. Acute kidney injury. OPERATIONS: None. CONSULTATION: Nephrology, she is improved. MMODL / IJN: [id number] /
== END 2023-05-05 11:55 | disposition home or self-care (01) ==
LOC: EC 03:24 → 4SSUR 07:41 → INTOOBSV 07:41 → 4SSUR 19:46
PROVIDERS: ADMIT Family Medicine; ATTEND Family Medicine
DX: R10.32 Left lower quadrant pain (principal); N17.9 Acute kidney failure, unspecified; D72.829 Elevated white blood cell count, unspecified; R74.8 Abnormal levels of other serum enzymes; J44.9 Chronic obstructive pulmonary disease, unspecified; K21.9 Gastro-esophageal reflux disease without esophagitis; E89.0 Postprocedural hypothyroidism; F43.10 Post-traumatic stress disorder, unspecified; F32.A Depression, unspecified; F41.9 Anxiety disorder, unspecified; I12.9 Hypertensive chronic kidney disease with stage 1 through stage 4 chronic kidney disease, or unspecified chronic kidney disease; N18.9 Chronic kidney disease, unspecified; Z85.3 Personal history of malignant neoplasm of breast; Z85.820 Personal history of malignant melanoma of skin; Z79.890 Hormone replacement therapy; Z79.899 Other long term (current) drug therapy; Z88.1 Allergy status to other antibiotic agents; Z88.5 Allergy status to narcotic agent; Z88.6 Allergy status to analgesic agent
CPT/HCPCS: 96376 ×5; 96361 ×3; 96374; 96375; 99285; 36415; 83930; 80053 ×2; 82150 ×2; 83605; 83690 ×2; 85025 ×2; 86140; 81001; 83935; 74176; G0378 ×4; S0106 ×3; J2405; J1170 ×4

== ENCOUNTER 2023-07-19 08:44 | Emergency (ER) | payer MEDICARE ==
[2023-07-19] MEDS: diphenhydrAMINE 50 MG/ML 1 ML VIAL IM STA (09:21)
[2023-07-19] MEDS: ONDANSETRON 4 MG/2 ML VIAL IM STA (09:21)
[2023-07-19] MEDS: FAMOTIDINE 20 MG TAB PO STA (09:22)
--- NOTE | 2023-07-19 09:23 | ED ---
Nausea/Vomiting/Diarrhea HPI - General Chief complaint: Abdominal Pain Stated complaint: abd pain Time Seen by Provider: 07/19/23 08:51 Source: patient, RN notes reviewed Mode of arrival: EMS Limitations: no limitations - History of Present Illness Initial comments: This is a 73-year-old female who presents to the emergency department for nausea. States that her neighbors were cooking fish and the smell was so severe that it caused her to have an allergic reaction. States that this has happened before when she was exposed to fish. She is out of her Zofran, Benadryl, and EpiPen, and was unable to manage this at home. Reports nausea, a sore throat, and itching on the scalp, all of which she attributes to an allergic reaction. States that she does have an appointment very soon and needs to leave rather quickly. She is requesting medication to help with her symptoms and quick discharge home. MD complaint: nausea - Related Data Home Medications Medication Instructions Recorded Confirmed Pantoprazole Sodium [Protonix] 40 mg PO BID 04/09/16 05/02/23 EPINEPHrine [Epipen 2-River] 0.3 mg IM ONCE PRN 11/16/16 05/02/23 Sucralfate [Carafate] 1 gm PO ACHS 12/13/16 05/02/23 Losartan Potassium 50 mg PO BID 09/16/17 05/02/23 diazePAM [Valium] 5 mg PO DAILY PRN 09/16/17 05/02/23 Levothyroxine Sodium [Synthroid] 88 mcg PO DAILY 04/24/18 05/02/23 buPROPion HCL [Wellbutrin SR] 200 mg PO BID 08/11/18 05/02/23 hydroCHLOROthiazide 12.5 mg PO DAILY 09/12/18 05/02/23 diphenhydrAMINE [Benadryl] 50 mg PO HS 03/21/19 05/02/23 Ascorbic Acid [Vitamin C] 1,000 mg PO DAILY 12/12/20 05/02/23 Fexofenadine HCl [Patyon Allergy] 180 mg PO BID 12/12/20 05/02/23 Biotin Gummy 1 tab PO DAILY 06/17/21 05/02/23 Multivitamin [Multivitamins Adult 1 tab PO DAILY 06/17/21 05/02/23 Gummies] DULoxetine HCL [Cymbalta] 120 mg PO DAILY 09/21/22 05/02/23 Albuterol Inhaler [Ventolin Hfa 2 puff INHALATION RT-Q6H PRN 05/02/23 05/02/23 Inhaler] Amoxicillin 250 mg PO Q8H 05/02/23 05/02/23 HYDROcodone/APAP 10-325MG [[place] 1 tab PO BID 05/02/23 05/02/23 10-325] Ibuprofen [Motrin] 800 mg PO Q8H PRN 05/02/23 05/02/23 Metoprolol Tartrate [Lopressor] 50 mg PO BID 05/02/23 05/02/23 Nitroglycerin Sl Tabs [Nitrostat] 0.4 mg SUBLINGUAL Q5M PRN 05/02/23 05/02/23 Ondansetron [Zofran] 4 mg PO Q8HR PRN 05/02/23 05/02/23 valACYclovir HCL [Valtrex] 500 mg PO BID 05/02/23 05/02/23 Previous Rx's Medication Instructions Recorded methocarbamoL [Robaxin] 500 mg PO TID PRN #25 tab 02/10/23 Allergies Allergy/AdvReac Type Severity Reaction Status Date / Time atorvastatin [From Lipitor] Allergy Swelling Verified 05/02/23 11:50 buprenorphine [From Butrans] Allergy pain Verified 05/02/23 11:50 carisoprodol [From Soma] Allergy Unknown Verified 05/02/23 11:50 chlorpromazine Allergy Unknown Verified 05/02/23 11:50 [From Thorazine] ciprofloxacin [From Cipro] Allergy Unknown Verified 05/02/23 11:50 clonazepam [From Klonopin] Allergy Unknown Verified 05/02/23 11:50 cyclobenzaprine Allergy Unknown Verified 05/02/23 11:50 [From Flexeril] metoclopramide [From Reglan] Allergy Anaphylaxis Verified 05/02/23 11:50 metronidazole [From Flagyl] Allergy Anaphylaxis Verified 05/02/23 11:50 morphine Allergy Rash/Hives Verified 05/02/23 11:50 naproxen Allergy Unknown Verified 05/02/23 11:50 oxycodone [From OxyContin] Allergy Hallucinati Verified 05/02/23 11:50 ons papaya Allergy Rash/Hives Verified 05/02/23 11:50 prednisone Allergy Anaphylaxis Verified 05/02/23 11:50 prochlorperazine Allergy Anaphylaxis Verified 05/02/23 11:50 [From Compazine] red dye Allergy Rash/Hives Verified 05/02/23 11:50 venom-honey bee Allergy Anaphylaxis Verified 05/02/23 11:50 [bee venom (honey bee)] ketorolac [From Toradol] AdvReac Severe Abdominal Verified 05/02/23 11:50 Pain baclofen AdvReac Twitching Verified 05/02/23 11:50 buspirone [From BuSpar] AdvReac Confusion Verified 05/02/23 11:50 ibuprofen [From Motrin] AdvReac Abdominal Verified 05/02/23 11:50 Pain meperidine [From Demerol] AdvReac Rapid Verified 05/02/23 11:50 Heart Rate Phenothiazines AdvReac Altered Verified 05/02/23 11:50 Mental Status sulfamethoxazole AdvReac Rash/Hives Verified 05/02/23 11:50 [From Bactrim] trimethoprim [From Bactrim] AdvReac Rash/Hives Verified 05/02/23 11:50 Review of Systems ROS Statement: Those systems with pertinent positive or pertinent negative responses have been documented in the HPI. ROS Other: All systems not noted in ROS Statement are negative. Past Medical History Past Medical History: Asthma, Cancer, COPD, GERD/Reflux, Hypertension, Pneumonia, Thyroid Disorder Additional Past Medical History / Comment(s): shingles, RT BREAST LUMPECTOMY/CANCER, THYROID REMOVE, CATARACTS, BRONCHITIS, MONO TEENAGER, LITE CASE OF POLIO AGE 8, MELANOMA SKIN CANCER REMOVED, r shoulder rotator tear, abd hernia 2022, chronic knee pain History of Any Multi-Drug Resistant Organisms: MRSA Date of last positivie culture/infection: 2009 MDRO Source:: LEFT ULNAR BONE, kidneys Past Surgical History: Appendectomy, Back Surgery, Cholecystectomy, Orthopedic Surgery Additional Past Surgical History / Comment(s): EYE SX FOR LAZY EYE, SX ON TEAR DUCTS, BACK SURGERY MICRO DISC, LT WRIST BROKEN 9 GALLO HAD 13 Surgeries TO CORRECT, left shoulder and humorous shattered from a fall with 2 surgeries to correct, LAPROSCOPIES- BENIGN TUNOR SIZE OF GRAPFRUIT REMOVED AGE 11 OR 1, RT BREAST BX/LUMPECTOMY,LT PINK FINGER SX TO STRAIGHTEN.MELANOMA SKIN CANCER REMOVED. Past Anesthesia/Blood Transfusion Reactions: No Reported Reaction Additional Past Anesthesia/Blood Transfusion Reaction / Comment(s): CLAUSTERPHOBIA Past Psychological History: Anxiety, Depression, PTSD Smoking Status: Never smoker Past Alcohol Use History: None Reported Past Drug Use History: None Reported - Past Family History Mother Family Medical History: Asthma Additional Family Medical History / Comment(s): ETOH/SMOKER Father Family Medical History: Cancer, Liver Disease Additional Family Medical History / Comment(s): ESOPHOGEAL CANCER, ETOH General Exam Limitations: no limitations General appearance: alert, in no apparent distress Head exam: Present: atraumatic, normocephalic, normal inspection Respiratory exam: Present: normal lung sounds bilaterally. Absent: respiratory distress, wheezes, rales, rhonchi, stridor Cardiovascular Exam: Present: regular rate, normal rhythm, normal heart sounds. Absent: systolic murmur, diastolic murmur, rubs, gallop, clicks GI/Abdominal exam: Present: soft, normal bowel sounds. Absent: distended, tenderness, guarding, rebound, rigid Neurological exam: Present: alert, oriented X3, CN II-XII intact Psychiatric exam: Present: normal affect, normal mood Skin exam: Present: warm, dry, intact, normal color. Absent: rash Course Vital Signs 07/19/23 07/19/23 08:45 09:21 Temperature 98.1 F Pulse Rate 70 65 Respiratory 16 17 Rate Blood Pressure 153/80 142/66 O2 Sat by Pulse 96 97 Oximetry Medical Decision Making - Medical Decision Making This is a 73 year old female who presents to the emergency department for nausea. Was pt. sent in by a medical professional or institution? @ -No Did you speak to anyone other than the patient for history? @ -No Did you review nursing and triage notes? @ -I disagree with the patient's odd behavior and feeling like people are out to get her. Were old charts reviewed? @ -No Differential Diagnosis? @ -Differential Nausea and Vomiting: Gastroenteritis, cholecystitis, appendicitis, pancreatitis, migraine, benign positional vertigo, food borne illness, pyelonephritis, irritable bowel syndrome, influenza, Covid, GERD, incarcerated hernia, intestinal obstruction, this is not meant to be an all-inclusive list. EKG interpreted by me (3pts min.)? @ -Not obtained X-rays interpreted by me (1pt min.)? @ -Not obtained CT interpreted by me (1pt min.)? @ -Not obtained U/S interpreted by me (1pt. min.)? @ -Not obtained What testing was considered but not performed? (CT, X-rays, U/S, labs)? Why? @ -None What meds were considered but not given? Why? @ -None Did you discuss the management of the patient with other professionals? @ -No Did you reconcile home meds? @ -No Was smoking cessation discussed for >3mins.? @ -No Was critical care preformed (if so, how long)? @ -No Were there social determinants of health that impacted care today? How? (Homelessness, low income, unemployed, alcoholism, drug addiction, transpor tation, low edu. Level, literacy, decrease access to med. care, fci, rehab)? @ -No Was there de-escalation of care discussed even if they declined? (Discuss DNR or withdrawal of care, Hospice)? @ -No What co-morbidities impacted this encounter? (DM, HTN, Smoking, COPD, CAD, Cancer, CVA, Hep., AIDS, mental health diagnosis, sleep apnea, morbid obesity)? @ -None Was patient admitted / discharged? @ -Discharged. On arrival, patient was fairly certain that all of her symptoms are secondary to an allergic reaction from the scent of the fish. She did have another appointment to get to and requested medication management followed by fairly quick discharge. Patient given Zofran, Benadryl, and famotidine in the emergency department with improvement in symptoms and discharged home in stable condition. Undiagnosed new problem with uncertain prognosis? @ -None Drug Therapy requiring intensive monitoring for toxicity (Heparin, Nitro, Insulin, Cardizem)? @ -None Were any procedures done? @ -None Diagnosis/symptom? @ -Allergic reaction, nausea Acute, or Chronic, or Acute on Chronic? @ -Acute Uncomplicated (without systemic symptoms) or Complicated (systemic symptoms)? @ -Uncomplicated Side effects of treatment? @ -None Exacerbation, Progression, or Severe Exacerbation] @ -Not applicable Poses a threat to life or bodily function? @ -No Return precautions reviewed in depth, the patient is instructed to return to the emergency department with any new, worsening, or concerning symptoms. Patient verbalized understanding. This case was discussed in detail with the attending ED physician, Dr. Decker. Presentation, findings, and treatment plan discussed in detail as well. Disposition Clinical Impression: Allergic reaction, Nausea Disposition: HOME SELF-CARE Instructions (If sedation given, give patient instructions): Acute Nausea and Vomiting (ED), General Allergic Reaction (ED) Additional Instructions: Return to the emergency department with any new, worsening, or concerning symptoms. Follow up with your primary care provider in 1-2 days. Is patient prescribed a controlled substance at d/c from ED?: No Referrals: Matty Brown MD [Primary Care Provider] - 1-2 days Time of Disposition: 09:23
[2023-07-19 09:24] VITALS: BP 142/66; PULSE 65; RESP 17; TEMP 98.1
[2023-07-19] MEDS: ONDANSETRON 4 MG ODT STARTER PACK 2 TAB BTL PO STA (09:30)
== END 2023-07-19 09:36 | disposition home or self-care (01) ==
LOC: EC 08:44
DX: R11.0 Nausea (principal); T45.0X5A Adverse effect of antiallergic and antiemetic drugs, initial encounter; I10 Essential (primary) hypertension; K21.9 Gastro-esophageal reflux disease without esophagitis; F32.A Depression, unspecified; F41.9 Anxiety disorder, unspecified; E07.9 Disorder of thyroid, unspecified; Z79.890 Hormone replacement therapy; Z79.899 Other long term (current) drug therapy; Z88.1 Allergy status to other antibiotic agents; Z88.2 Allergy status to sulfonamides; Z88.5 Allergy status to narcotic agent; Z88.6 Allergy status to analgesic agent; Z88.8 Allergy status to other drugs, medicaments and biological substances; Z91.030 Bee allergy status; Z90.49 Acquired absence of other specified parts of digestive tract
CPT/HCPCS: 99284; 96372 ×2; J1200; J2405; S0119

== ENCOUNTER 2023-08-15 14:15 | Emergency (ER) | payer MEDICARE ==
--- NOTE | 2023-08-15 14:31 | ED ---
Fall HPI - General Chief Complaint: Fall Stated Complaint: Fall Time Seen by Provider: 08/15/23 14:31 Source: patient, RN notes reviewed Mode of arrival: wheelchair Limitations: no limitations - History of Present Illness Initial Comments: 73-year-old female presented to the ER with chief complaint of a fall. She states she was walking to the curb to catch a cab to go to [facility] to corn picker her prescriptions. She states her left leg gave out on her and she landed on her left hip. States she was unable to get up after the fall and had 2 bystanders assisted her into the vehicle. She denies any head injury, loss of consciousness, blood thinner use. Denies any paresthesias. She endorses most of her pain over the lateral hip. Denies limited range of motion of her knee or ankle. Denies dizziness, lightheadedness, chest pain, or shortness of breath prior to fall. No other complaints at this time. - Related Data Home Medications Medication Instructions Recorded Confirmed Pantoprazole Sodium [Protonix] 40 mg PO BID 04/09/16 05/02/23 EPINEPHrine [Epipen 2-River] 0.3 mg IM ONCE PRN 11/16/16 05/02/23 Sucralfate [Carafate] 1 gm PO ACHS 12/13/16 05/02/23 Losartan Potassium 50 mg PO BID 09/16/17 05/02/23 diazePAM [Valium] 5 mg PO DAILY PRN 09/16/17 05/02/23 Levothyroxine Sodium [Synthroid] 88 mcg PO DAILY 04/24/18 05/02/23 buPROPion HCL [Wellbutrin SR] 200 mg PO BID 08/11/18 05/02/23 hydroCHLOROthiazide 12.5 mg PO DAILY 09/12/18 05/02/23 diphenhydrAMINE [Benadryl] 50 mg PO HS 03/21/19 05/02/23 Ascorbic Acid [Vitamin C] 1,000 mg PO DAILY 12/12/20 05/02/23 Fexofenadine HCl [[place] Allergy] 180 mg PO BID 12/12/20 05/02/23 Biotin Gummy 1 tab PO DAILY 06/17/21 05/02/23 Multivitamin [Multivitamins Adult 1 tab PO DAILY 06/17/21 05/02/23 Gummies] DULoxetine HCL [Cymbalta] 120 mg PO DAILY 09/21/22 05/02/23 Albuterol Inhaler [Ventolin Hfa 2 puff INHALATION RT-Q6H PRN 05/02/23 05/02/23 Inhaler] Amoxicillin 250 mg PO Q8H 05/02/23 05/02/23 HYDROcodone/APAP 10-325MG [[place] 1 tab PO BID 05/02/23 05/02/23 10-325] Ibuprofen [Motrin] 800 mg PO Q8H PRN 05/02/23 05/02/23 Metoprolol Tartrate [Lopressor] 50 mg PO BID 05/02/23 05/02/23 Nitroglycerin Sl Tabs [Nitrostat] 0.4 mg SUBLINGUAL Q5M PRN 05/02/23 05/02/23 Ondansetron [Zofran] 4 mg PO Q8HR PRN 05/02/23 05/02/23 valACYclovir HCL [Valtrex] 500 mg PO BID 05/02/23 05/02/23 Previous Rx's Medication Instructions Recorded methocarbamoL [Robaxin] 500 mg PO TID PRN #25 tab 02/10/23 Allergies Allergy/AdvReac Type Severity Reaction Status Date / Time atorvastatin [From Lipitor] Allergy Swelling Verified 08/15/23 14:22 buprenorphine [From Butrans] Allergy pain Verified 08/15/23 14:22 carisoprodol [From Soma] Allergy Unknown Verified 08/15/23 14:22 chlorpromazine Allergy Unknown Verified 08/15/23 14:22 [From Thorazine] ciprofloxacin [From Cipro] Allergy Unknown Verified 08/15/23 14:22 clonazepam [From Klonopin] Allergy Unknown Verified 08/15/23 14:22 cyclobenzaprine Allergy Unknown Verified 08/15/23 14:22 [From Flexeril] metoclopramide [From Reglan] Allergy Anaphylaxis Verified 08/15/23 14:22 metronidazole [From Flagyl] Allergy Anaphylaxis Verified 08/15/23 14:22 morphine Allergy Rash/Hives Verified 08/15/23 14:22 naproxen Allergy Unknown Verified 08/15/23 14:22 oxycodone [From OxyContin] Allergy Hallucinati Verified 08/15/23 14:22 ons papaya Allergy Rash/Hives Verified 08/15/23 14:22 prednisone Allergy Anaphylaxis Verified 08/15/23 14:22 prochlorperazine Allergy Anaphylaxis Verified 08/15/23 14:22 [From Compazine] red dye Allergy Rash/Hives Verified 08/15/23 14:22 venom-honey bee Allergy Anaphylaxis Verified 08/15/23 14:22 [bee venom (honey bee)] ketorolac [From Toradol] AdvReac Severe Abdominal Verified 08/15/23 14:22 Pain baclofen AdvReac Twitching Verified 08/15/23 14:22 buspirone [From BuSpar] AdvReac Confusion Verified 08/15/23 14:22 ibuprofen [From Motrin] AdvReac Abdominal Verified 08/15/23 14:22 Pain meperidine [From Demerol] AdvReac Rapid Verified 08/15/23 14:22 Heart Rate Phenothiazines AdvReac Altered Verified 08/15/23 14:22 Mental Status sulfamethoxazole AdvReac Rash/Hives Verified 08/15/23 14:22 [From Bactrim] trimethoprim [From Bactrim] AdvReac Rash/Hives Verified 08/15/23 14:22 Review of Systems ROS Statement: Those systems with pertinent positive or pertinent negative responses have been documented in the HPI. ROS Other: All systems not noted in ROS Statement are negative. Past Medical History Past Medical History: Asthma, Cancer, COPD, GERD/Reflux, Hypertension, Pneumonia, Thyroid Disorder Additional Past Medical History / Comment(s): shingles, RT BREAST LUMPECTOMY/CANCER, THYROID REMOVE, CATARACTS, BRONCHITIS, MONO TEENAGER, LITE CASE OF POLIO AGE 8, MELANOMA SKIN CANCER REMOVED, r shoulder rotator tear, abd hernia 2022, chronic knee pain History of Any Multi-Drug Resistant Organisms: MRSA Date of last positivie culture/infection: 2009 MDRO Source:: LEFT ULNAR BONE, kidneys Past Surgical History: Appendectomy, Back Surgery, Cholecystectomy, Orthopedic Surgery Additional Past Surgical History / Comment(s): EYE SX FOR LAZY EYE, SX ON TEAR DUCTS, BACK SURGERY MICRO DISC, LT WRIST BROKEN 9 GALLO HAD 13 Surgeries TO CORRECT, left shoulder and humorous shattered from a fall with 2 surgeries to correct, LAPROSCOPIES- BENIGN TUNOR SIZE OF GRAPFRUIT REMOVED AGE 11 OR 1, RT BREAST BX/LUMPECTOMY,LT PINK FINGER SX TO STRAIGHTEN.MELANOMA SKIN CANCER REMOVED. Past Anesthesia/Blood Transfusion Reactions: No Reported Reaction Additional Past Anesthesia/Blood Transfusion Reaction / Comment(s): CLAUSTERPHOBIA Past Psychological History: Anxiety, Depression, PTSD Smoking Status: Never smoker Past Alcohol Use History: None Reported Past Drug Use History: None Reported - Past Family History Mother Family Medical History: Asthma Additional Family Medical History / Comment(s): ETOH/SMOKER Father Family Medical History: Cancer, Liver Disease Additional Family Medical History / Comment(s): ESOPHOGEAL CANCER, ETOH General Exam Limitations: no limitations General appearance: alert, in no apparent distress Head exam: Present: atraumatic, normocephalic, normal inspection Eye exam: Present: normal appearance, PERRL, EOMI. Absent: scleral icterus, conjunctival injection, periorbital swelling Respiratory exam: Present: normal lung sounds bilaterally. Absent: respiratory distress, wheezes, rales, rhonchi, stridor Cardiovascular Exam: Present: regular rate, normal rhythm, normal heart sounds. Absent: systolic murmur, diastolic murmur, rubs, gallop, clicks Extremities exam: Present: normal inspection, full ROM, normal capillary refill, other (Positive left leg roll. 2+ left dorsalis pedis pulse. Sensation intact. Patient has full active range of motion of left knee and ankle.). Absent: tenderness, pedal edema, joint swelling, calf tenderness Neurological exam: Present: alert, oriented X3, CN II-XII intact Psychiatric exam: Present: normal affect, normal mood Skin exam: Present: warm, dry, intact, normal color. Absent: rash Course Vital Signs 08/15/23 08/15/23 14:16 16:52 Temperature 97.9 F 97.8 F Pulse Rate 78 81 Respiratory 20 18 Rate Blood Pressure 127/68 148/75 O2 Sat by Pulse 98 100 Oximetry Medical Decision Making - Medical Decision Making Was pt. sent in by a medical professional or institution (, PA, PROJECT PRODUCT MANAGER, urgent care, hospital, or correction...) When possible be specific @ -No Did you speak to anyone other than the patient for history (EMS, parent, family, police, friend...)? What history was obtained from this source @ -No Did you review nursing and triage notes (agree or disagree)? Why? @ -I reviewed and agree with nursing and triage notes Were old charts reviewed (outside hosp., previous admission, EMS record, old EKG, old radiological studies, urgent care reports/EKG's, correction records)? Report findings @ -No old charts were reviewed Differential Diagnosis (chest pain, altered mental status, abdominal pain women, abdominal pain men, vaginal bleeding, weakness, fever, dyspnea, syncope, headache, dizziness, GI bleed, back pain, seizure, CVA, palpatations, mental health, musculoskeletal)? @ -Differential Musculoskeletal: Muscular strain, contusion, ligament sprain, fracture, arthritis, septic arthritis, bursitis, cellulitis, muscle spasm, nerve compression, DVT, arterial occlusion, herpes zoster, electrolyte abnormality, tumor.... This is not meant to be in all inclusive list EKG interpreted by me (3pts min.). @ -None X-rays interpreted by me (1pt min.). @ -Left hip AP pelvis x-ray interpreted by me negative for acute process. Left knee x-ray showed a small joint effusion. CT interpreted by me (1pt min.). @ -None done U/S interpreted by me (1pt. min.). @ -None done What testing was considered but not performed or refused? (CT, X-rays, U/S, labs)? Why? @ -None What meds were considered but not given or refused? Why? @ -None Did you discuss the management of the patient with other professionals (professionals i.e. , PA, PROJECT PRODUCT MANAGER, lab, RT, psych nurse, social work therapist, immigration lawyer, teacher, workplace rehabilitation officer, gearcase assembler)? Give summary @ -No Was smoking cessation discussed for >3mins.? @ -No Was critical care preformed (if so, how long)? @ -No Were there social determinants of health that impacted care today? How? (Homelessness, low income, unemployed, alcoholism, drug addiction, transportation, low edu. Level, literacy, decrease access to med. care, residential, rehab)? @ -No Was there de-escalation of care discussed even if they declined (Discuss DNR or withdrawal of care, Hospice)? DNR status @ -No What co-morbidities impacted this encounter? (DM, HTN, Smoking, COPD, CAD, Cancer, CVA, ARF, Chemo, Hep., AIDS, mental health diagnosis, sleep apnea, morbid obesity)? @ -None Was patient admitted / discharged? Hospital course, mention meds given and route, prescriptions, significant lab abnormalities, going to OR and other pertinent info. @ -Discharge. Patient is a 73-year-old female presenting to the ER with a chi ef complaint of a fall. History and physical exam completed. Vitals stable. Patient no signs of acute distress and nontoxic-appearing. No acute neurological findings on exam. Bilateral lower extremities neurovascular intact. Patient is active range of motion. X-rays obtained negative for acute process. Patient received IM Toradol for pain control. Patient was able to ambulate to bathroom unassisted. During ER stay and multiple times walking past patient she was freely moving left lower extremity without hesitation. Results discussed with patient, all questions answered. Advised patient to follow-up with PCP/orthopedics, referral given. Return parameters discussed. Patient discharged stable condition with follow-up to PCP. Patient verbally expressed understanding and agreement with care plan. Case discussed with ED attending, Dr. Morales. Undiagnosed new problem with uncertain prognosis? @ -No Drug Therapy requiring intensive monitoring for toxicity (Heparin, Nitro, Insuli n, Cardizem)? @ -No Were any procedures done? @ -No Diagnosis/symptom? @ -Fall Acute, or Chronic, or Acute on Chronic? @ -Acute Uncomplicated (without systemic symptoms) or Complicated (systemic symptoms)? @ -Uncomplicated Side effects of treatment? @ -No Exacerbation, Progression, or Severe Exacerbation? @ -No Poses a threat to life or bodily function? How? (Chest pain, [place], CA, pneumonia, PE, COPD, DKA, ARF, appy, cholecystitis, CVA, Diverticulitis, Homicidal, Suicidal, threat to staff... and all critical care pts) @ -No - Radiology Data Radiology results: report reviewed, image reviewed Disposition Clinical Impression: Fall Disposition: HOME SELF-CARE Condition: Stable Instructions (If sedation given, give patient instructions): Fall Prevention for Older Adults (ED) Additional Instructions: Follow-up with orthopedic surgeon/PCP. Return to the ER for any new or worsening concerns. Is patient prescribed a controlled substance at d/c from ED?: No Referrals: Matty Brown MD [Primary Care Provider] - 1-2 days Aden Dillard MD [Medical Doctor] - 1-2 days Time of Disposition: 16:37
[2023-08-15] MEDS: KETOROLAC 15 MG/ML 1 ML VIAL IM STA (15:27)
--- NOTE | 2023-08-15 16:01 | XR ---
EXAMINATION TYPE: XR knee complete LT DATE OF EXAM: 08/15/2023 COMPARISON: None HISTORY: Pain, fall TECHNIQUE: 3 view left knee FINDINGS: Tibial femoral components are present. No acute fracture or dislocation is evident. Small j oint effusion is present. Follow up exams can be performed 7-10 days from acute trauma for continued pain. IMPRESSION: 1. Small left joint effusion.
--- NOTE | 2023-08-15 16:03 | XR ---
EXAMINATION TYPE: XR Hip LT and AP Pelvis DATE OF EXAM: 08/15/2023 COMPARISON: None HISTORY: Pain, fall TECHNIQUE: 2 view left hip FINDINGS: Femoral head articulates with the acetabulum. No acute fracture. Exam is supplemented with an AP pelvis which appears unremarkable. There is degenerative change with spurring at the right acetabulum. Lucency is present. Correlate fo r pain. IMPRESSION: 1. No acute left hip fracture.
[2023-08-15 17:04] VITALS: BP 148/75; PULSE 81; RESP 18; TEMP 97.8
== END 2023-08-15 16:54 | disposition home or self-care (01) ==
LOC: EC 14:15
DX: S79.912A Unspecified injury of left hip, initial encounter (principal); Z88.8 Allergy status to other drugs, medicaments and biological substances; Z88.1 Allergy status to other antibiotic agents; Z88.5 Allergy status to narcotic agent; Z88.6 Allergy status to analgesic agent; Z91.018 Allergy to other foods; Z91.041 Radiographic dye allergy status; Z91.030 Bee allergy status; Z88.2 Allergy status to sulfonamides; W18.30XA Fall on same level, unspecified, initial encounter; Y93.01 Activity, walking, marching and hiking
CPT/HCPCS: 73502; 73562; 99283; 96372; J1885

== ENCOUNTER 2023-12-07 07:44 | Emergency (ER) | payer MEDICARE, OTHER ==
[2023-12-07 07:57] VITALS: TEMP 97.6
[2023-12-07] MEDS: SODIUM CHLORIDE 0.9% 1,000 ML IV STA (08:21)
[2023-12-07] MEDS: HYDROmorphone 0.5 MG/0.5 ML SYRINGE IVP STA (08:22)
[2023-12-07 08:26] LABS: Anisocytosis Slight; Basophils % (A) 1 %; Eosinophils # (A) 0.3 k/uL (0-0.7); Eosinophils % (A) 5 %; HCT 32.3 % (34.0-46.0); HGB 10.3 gm/dL (11.4-16.0); Hypochromasia Moderate; Lymphocytes # (A) 2.2 k/uL (1.0-4.8); Lymphocytes % (A) 35 %; MCH 28.8 pg (25.0-35.0); MCHC 31.9 g/dL (31.0-37.0); MCV 90.3 fL (80.0-100.0); Mean Platelet Volume 9.3; Monocytes # (A) 0.5 k/uL (0-1.0); Monocytes % (A) 8 %; Neutrophils # (A) 3.2 k/uL (1.3-7.7); Neutrophils % (A) 50 %; Platelet Count 315 k/uL (150-450); RBC 3.57 m/uL (3.80-5.40); RDW 18.6 % (11.5-15.5); WBC 6.4 k/uL (3.8-10.6)
[2023-12-07 08:40] LABS: ALT 21 U/L (4-34); AST 32 U/L (14-36); African American GFR (CKD) 44 (>60 ml/min/1.73 sqM); Albumin 4.5 g/dL (3.5-5.0); Alcohol <10 mg/dL; Alkaline Phosphatase 124 U/L (38-126); Anion Gap 8 mmol/L; Blood Urea Nitrogen 36 mg/dL (7-17); Calcium 9.3 mg/dL (8.4-10.2); Carbon Dioxide 22 mmol/L (22-30); Chloride 104 mmol/L (98-107); Glucose 81 mg/dL (74-99); Non-African American GFR(CKD) 38 (>60 ml/min/1.73 sqM); Potassium 4.5 mmol/L (3.5-5.1); Sodium 134 mmol/L (137-145); Total Bilirubin 0.5 mg/dL (0.2-1.3); Total Protein 6.3 g/dL (6.3-8.2)
[2023-12-07 08:48] LABS: INR 0.9 (<1.2); Partial Thromboplastin Time 21.3 sec (22.0-30.0); Prothrombin Time 10.1 sec (10.0-12.5)
--- NOTE | 2023-12-07 08:58 | CT ---
EXAMINATION TYPE: CT brain cspine wo con CT DLP: 1254.7 mGycm, Automated exposure control for dose reduction was used. DATE OF EXAM: 12/07/2023 8:41 AM COMPARISON: 12/07/2023. CLINICAL INDICATION:Female, 73 years old with history of trauma; Trauma-fall TECHNIQUE: Brain: Multiple axial CT images of the brain were obtained without IV contrast. Cspine: Axial CT images from the skull base to the inferior aspect of T2 we obtained without intraven ous contrast. Coronal and sagittal reformatted images were also reviewed. . FINDINGS: Brain: Extra-axial spaces: No abnormal extra-axial fluid collections. Ventricular system: Dilatation in proportion to cerebral atrophy. Cerebral parenchyma: Cerebral atrophy. No acute intraparenchymal hemorrhage or mass effect. The andrews -white junction is well differentiated. Scattered hypoattenuating areas are seen within the white mat ter. Cerebellum: Unremarkable. Mass effect: No evidence of midline shift. Intracranial vasculature: unremarkable Soft tissues: Normal. Calvarium/osseous structures: No depressed skull fracture. Paranasal sinuses and mastoid air cells: Clear. Visualized orbits: Orbital contents are intact. Cervical spine: Fracture: None. Acute fracture of right rib 1 with no displacement series 2 image 44.e acute fracture of right rib 2 minimal displacement Osseous structures: Multilevel degenerative disc disease changes with endplate spurring and disc oste ophyte complex's. Vertebral alignment: Within normal limits. Spinal canal/Neural Foramina: No evidence of significant spinal canal narrowing. Facet joint uncovert ebral joint arthropathy scattered throughout the cervical spine with varying degrees of neural forami nal stenosis. No foraminal stenosis worse at left C4-C5, C5-C6 and C6-C7 with moderate to severe and right severe C3-C4, C4-C5, moderate C5-C6 and C6-C7. Neck soft tissues: Prevertebral soft tissues are within normal limits. Other: The airway is patent. The lung apices are clear. IMPRESSION: 1. Acute fractures of right medial rib 1 and 2 without significant displacement. 2. No acute intracranial process. 3. No evidence of cervical spine fracture. 4. Moderate multilevel degeneration changes of the spine.
--- NOTE | 2023-12-07 09:04 | ED ---
General Adult HPI - General Chief complaint: Fall Stated complaint: FALL Time Seen by Provider: 12/07/23 07:45 Source: patient, RN notes reviewed, old records reviewed Mode of arrival: ambulatory Limitations: no limitations - History of Present Illness Initial comments: Patient is a 73-year-old female presents emergency department after a fall. Patient states she fell down at the bottom of steps as she was attempting to walk her dog. She is not on any blood thinners or platelet inhibitors. Denies loss of consciousness. Is complaining of right-sided shoulder pain and ankle pain as well as striking the right side of her head on the ground. Has some abrasions but no significant bleeding. No obvious lacerations. Denies chest pain, shortness breath, abdominal pain, nausea, vomiting. Denies feeling faint. States she believes holding her dog's leash as and then pulling her contribute to the fall. Presents for further evaluation. Does have a history of chronic knee pain secondary to scheduled reconstructive surgery on the right knee. - Related Data Home Medications Medication Instructions Recorded Confirmed Pantoprazole Sodium [Protonix] 40 mg PO BID 04/09/16 05/02/23 EPINEPHrine [Epipen 2-River] 0.3 mg IM ONCE PRN 11/16/16 05/02/23 Sucralfate [Carafate] 1 gm PO ACHS 12/13/16 05/02/23 Losartan Potassium 50 mg PO BID 09/16/17 05/02/23 diazePAM [Valium] 5 mg PO DAILY PRN 09/16/17 05/02/23 Levothyroxine Sodium [Synthroid] 88 mcg PO DAILY 04/24/18 05/02/23 buPROPion HCL [Wellbutrin SR] 200 mg PO BID 08/11/18 05/02/23 hydroCHLOROthiazide 12.5 mg PO DAILY 09/12/18 05/02/23 diphenhydrAMINE [Benadryl] 50 mg PO HS 03/21/19 05/02/23 Ascorbic Acid [Vitamin C] 1,000 mg PO DAILY 12/12/20 05/02/23 Fexofenadine HCl [Payton Allergy] 180 mg PO BID 12/12/20 05/02/23 Biotin Gummy 1 tab PO DAILY 06/17/21 05/02/23 Multivitamin [Multivitamins Adult 1 tab PO DAILY 06/17/21 05/02/23 Gummies] DULoxetine HCL [Cymbalta] 120 mg PO DAILY 09/21/22 05/02/23 Albuterol Inhaler [Ventolin Hfa 2 puff INHALATION RT-Q6H PRN 05/02/23 05/02/23 Inhaler] Amoxicillin 250 mg PO Q8H 05/02/23 05/02/23 HYDROcodone/APAP 10-325MG [Milton 1 tab PO BID 05/02/23 05/02/23 10-325] Ibuprofen [Motrin] 800 mg PO Q8H PRN 05/02/23 05/02/23 Metoprolol Tartrate [Lopressor] 50 mg PO BID 05/02/23 05/02/23 Nitroglycerin Sl Tabs [Nitrostat] 0.4 mg SUBLINGUAL Q5M PRN 05/02/23 05/02/23 Ondansetron [Zofran] 4 mg PO Q8HR PRN 05/02/23 05/02/23 valACYclovir HCL [Valtrex] 500 mg PO BID 05/02/23 05/02/23 Previous Rx's Medication Instructions Recorded methocarbamoL [Robaxin] 500 mg PO TID PRN #25 tab 02/10/23 Lidocaine 5% Patch [Lidoderm 5% 1 patch TOPICAL DAILY PRN 14 Days 12/07/23 Patch] #14 patch Allergies Allergy/AdvReac Type Severity Reaction Status Date / Time atorvastatin [From Lipitor] Allergy Swelling Verified 12/07/23 07:57 buprenorphine [From Butrans] Allergy pain Verified 12/07/23 07:57 carisoprodol [From Soma] Allergy Unknown Verified 12/07/23 07:57 chlorpromazine Allergy Unknown Verified 12/07/23 07:57 [From Thorazine] ciprofloxacin [From Cipro] Allergy Unknown Verified 12/07/23 07:57 clonazepam [From Klonopin] Allergy Unknown Verified 12/07/23 07:57 cyclobenzaprine Allergy Unknown Verified 12/07/23 07:57 [From Flexeril] metoclopramide [From Reglan] Allergy Anaphylaxis Verified 12/07/23 07:57 metronidazole [From Flagyl] Allergy Anaphylaxis Verified 12/07/23 07:57 morphine Allergy Rash/Hives Verified 12/07/23 07:57 naproxen Allergy Unknown Verified 12/07/23 07:57 oxycodone [From OxyContin] Allergy Hallucinati Verified 12/07/23 07:57 ons papaya Allergy Rash/Hives Verified 12/07/23 07:57 prednisone Allergy Anaphylaxis Verified 12/07/23 07:57 prochlorperazine Allergy Anaphylaxis Verified 12/07/23 07:57 [From Compazine] red dye Allergy Rash/Hives Verified 12/07/23 07:57 venom-honey bee Allergy Anaphylaxis Verified 12/07/23 07:57 [bee venom (honey bee)] ketorolac [From Toradol] AdvReac Severe Abdominal Verified 12/07/23 07:57 Pain baclofen AdvReac Twitching Verified 12/07/23 07:57 buspirone [From BuSpar] AdvReac Confusion Verified 12/07/23 07:57 ibuprofen [From Motrin] AdvReac Abdominal Verified 12/07/23 07:57 Pain meperidine [From Demerol] AdvReac Rapid Verified 12/07/23 07:57 Heart Rate Phenothiazines AdvReac Altered Verified 12/07/23 07:57 Mental Status sulfamethoxazole AdvReac Rash/Hives Verified 12/07/23 07:57 [From Bactrim] trimethoprim [From Bactrim] AdvReac Rash/Hives Verified 12/07/23 07:57 Review of Systems ROS Statement: Those systems with pertinent positive or pertinent negative responses have been documented in the HPI. Review of Systems: CONST: Denies fever EYES: Denies blurry vision ENT: Denies nasal congestion C/V: Denies Chest pain RESP: Denies shortness of breath GI: Denies abdominal pain : Denies dysuria SKIN: Denies rash. MSK: Endorses right shoulder, ankle pain NEURO: Denies headache ROS Other: All systems not noted in ROS Statement are negative. Past Medical History Past Medical History: Asthma, Cancer, COPD, GERD/Reflux, Hypertension, Pneumonia, Thyroid Disorder Additional Past Medical History / Comment(s): shingles, RT BREAST LUMPECTOMY/CANCER, THYROID REMOVE, CATARACTS, BRONCHITIS, MONO TEENAGER, LITE CASE OF POLIO AGE 8, MELANOMA SKIN CANCER REMOVED, r shoulder rotator tear, abd hernia 2022, chronic knee pain History of Any Multi-Drug Resistant Organisms: MRSA Date of last positivie culture/infection: 2009 MDRO Source:: LEFT ULNAR BONE, kidneys Past Surgical History: Appendectomy, Back Surgery, Cholecystectomy, Orthopedic Surgery Additional Past Surgical History / Comment(s): EYE SX FOR LAZY EYE, SX ON TEAR DUCTS, BACK SURGERY MICRO DISC, LT WRIST BROKEN 9 GALLO HAD 13 Surgeries TO CORRECT, left shoulder and humorous shattered from a fall with 2 surgeries to correct, LAPROSCOPIES- BENIGN TUNOR SIZE OF GRAPFRUIT REMOVED AGE 11 OR 1, RT BREAST BX/LUMPECTOMY,LT PINK FINGER SX TO STRAIGHTEN.MELANOMA SKIN CANCER REMOVED. L knee Past Anesthesia/Blood Transfusion Reactions: No Reported Reaction Additional Past Anesthesia/Blood Transfusion Reaction / Comment(s): CLAUSTERPHOBIA Past Psychological History: Anxiety, Depression, PTSD Smoking Status: Never smoker Past Alcohol Use History: None Reported Past Drug Use History: None Reported - Past Family History Mother Family Medical History: Asthma Additional Family Medical History / Comment(s): ETOH/SMOKER Father Family Medical History: Cancer, Liver Disease Additional Family Medical History / Comment(s): ESOPHOGEAL CANCER, ETOH General Exam - General Exam Comments Initial Comments: General: Appears in no acute distress. HEAD: Normal with no signs of head trauma. Negative Conde sign. Negative raccoon eyes. EYES: PERRLA, EOMI, conjunctiva normal, no discharge. Pupils are 3 mm and equal bilaterally. ENT: Hearing grossly intact, normal oropharynx. RESPIRATORY: Clear breath sounds bilaterally. No wheezes, rales, or rhonchi.No evidence of flail chest on exam. C/V: Regular rate and rhythm. S1 and S2 auscultated, no edema, peripheral pulses 2+ and intact throughout ABD: Abd is soft, nontender, nondistended EXT: Decreased range of motion of the right shoulder secondary to pain. No obvious deformity. No significant midline tenderness to palpation of the cervical, thoracic, lumbar spine. Pelvis is stable. Mild tenderness to palpation over the right lateral malleolus of the ankle. No significant tenderness over the proximal aspect of the tib-fib on the right but does having some distal tenderness to palpation. No obvious deformities. Normal range of motion. SKIN: Abrasions over posterior shoulder as well as on the right side of face. NEURO: Alert and oriented x 4. Cranial nerves II-XII intact. No focal sensory or strength deficits. GCS of 15. Limitations: no limitations Course Vital Signs 12/07/23 12/07/23 07:47 09:28 Temperature 97.6 F Pulse Rate 59 L 52 L Respiratory 20 20 Rate Blood Pressure 128/64 134/64 O2 Sat by Pulse 99 99 Oximetry Medical Decision Making - Medical Decision Making Was pt. sent in by a medical professional or institution (, PA, SOCIOLOGY PROFESSOR, urgent care, hospital, or [facility]...) When possible be specific @ -No Did you speak to anyone other than the patient for history (EMS, parent, family, police, friend...)? What history was obtained from this source @ -No Did you review nursing and triage notes (agree or disagree)? Why? @ -I reviewed and agree with nursing and triage notes Were old charts reviewed (outside hosp., previous admission, EMS record, old EKG, old radiological studies, urgent care reports/EKG's, [facility] records)? Report findings @ -EMR reviewed for any evidence of patient being on blood thinners. No evidence of patient being on blood thinners. Differential Diagnosis (chest pain, altered mental status, abdominal pain women, abdominal pain men, vaginal bleeding, weakness, fever, dyspnea, syncope, headache, dizziness, GI bleed, back pain, seizure, CVA, palpatations, mental health, musculoskeletal)? @ -Differential Musculoskeletal Muscular strain, contusion, ligament sprain, fracture, arthritis, septic arthritis, bursitis, cellulitis, muscle spasm, nerve compression, DVT, arterial occlusion, herpes zoster, electrolyte abnormality, tumor.... This is not meant to be in all inclusive list EKG interpreted by me (3pts min.). @ -As above X-rays interpreted by me (1pt min.). @ -X-rays negative for traumatic injuries of the right shoulder, pelvis, ribs, leg. Patient does have a distal clavicular fracture. CT interpreted by me (1pt min.). @ -CT brain, C-spine negative for any obvious intracranial injury or cervical spine injury. Patient does have nondisplaced fractures of right medial ribs 1 and 2. U/S interpreted by me (1pt. min.). @ -None done What testing was considered but not performed or refused? (CT, X-rays, U/S, labs)? Why? @ -None What meds were considered but not given or refused? Why? @ -None Did you discuss the management of the patient with other professionals (professionals i.e. , PA, SOCIOLOGY PROFESSOR, lab, RT, psych nurse, social economist, radial saw operator, teacher, chief mechanical officer, special education case manager)? Give summary @ -No Was smoking cessation discussed for >3mins.? @ -No Was critical care preformed (if so, how long)? @ -No Were there social determinants of health that impacted care today? How? (Homelessness, low income, unemployed, alcoholism, drug addiction, transportation, low edu. Level, literacy, decrease access to med. care, [facility], rehab)? @ -No Was there de-escalation of care discussed even if they declined (Discuss DNR or withdrawal of care, Hospice)? DNR status @ -No What co-morbidities impacted this encounter? (DM, HTN, Smoking, COPD, CAD, Cancer, CVA, ARF, Chemo, Hep., AIDS, mental health diagnosis, sleep apnea, morbid obesity)? @ -None Was patient admitted / discharged? Hospital course, mention meds given and route, prescriptions, significant lab abnormalities, going to OR and other pertinent info. @ -Based on the patient's presentation and physical exam, presents emergency department complaining of a fall with primarily right shoulder pain. Seems to be a mechanical fall. No loss of consciousness. Not on blood thinners. Does not meet trauma activation criteria. We will obtain CT imaging of the head and C-spine due to the patient's age as well as x-rays of the right shoulder, right ankle and tib-fib, chest and pelvis. Patient was in agreement this plan. Patient will be symptomatically treated with IV fluids as well as pain medications. Vital signs are within acceptable limits. Cervical collar is in place. Laboratory studies are unremarkable. EKG shows no signs of acute ischemia. CT imaging negative for any obvious traumatic injury of the brain or C-spine but patient does have a right-sided first and second rib fractures that are nondisplaced. No evidence of flail chest on exam. Cervical collar cleared at this time and removed. X-rays show the distal clavicular fracture. Laboratory studies unremarkable. I updated the patient. She will be placed in a sling. Incentive spirometer ordered for the patient. I offered city call orthopedic follow-up however patient follows up with technical documentation specialist in [facility] and declines this. She is already on Milton 7.5 at home. I will send a prescription for lidocaine patches. She was in agreement this plan. I will provide the patient with a prescription for lidocaine patches. I instructed the patient to follow up with their PCP in the next 1-3 days. I e xplained that the patient should return to the emergency department if they experience any worsening symptoms. Strict return precautions were discussed with the patient. The patient expressed understanding of these instructions. I answered all questions that the patient had. The patient was discharged home in fair condition with their prescriptions and follow up information. Undiagnosed new problem with uncertain prognosis? @ -No Drug Therapy requiring intensive monitoring for toxicity (Heparin, Nitro, Insulin, Cardizem)? @ -No Were any procedures done? @ -No Diagnosis/symptom? @ -Fall, clavicle fracture, rib fracture Acute, or Chronic, or Acute on Chronic? @ -Acute Uncomplicated (without systemic symptoms) or Complicated (systemic symptoms)? @ -Uncomplicated Side effects of treatment? @ -None Exacerbation, Progression, or Severe Exacerbation] @ -No Poses a threat to life or bodily function? @ -Unlikely - Lab Data Result diagrams: 12/07/23 08:16 12/07/23 08:16 Lab Results 12/07/23 12/07/23 12/07/23 Range/Units 08:16 08:16 08:16 WBC 6.4 (3.8-10.6) k/uL RBC 3.57 L (3.80-5.40) m/uL Hgb 10.3 L (11.4-16.0) gm/dL Hct 32.3 L (34.0-46.0) % MCV 90.3 (80.0-100.0) fL MCH 28.8 (25.0-35.0) pg MCHC 31.9 (31.0-37.0) g/dL RDW 18.6 H (11.5-15.5) % Plt Count 315 (150-450) k/uL MPV 9.3 Neutrophils % 50 % Lymphocytes % 35 % Monocytes % 8 % Eosinophils % 5 % Basophils % 1 % Neutrophils # 3.2 (1.3-7.7) k/uL Lymphocytes # 2.2 (1.0-4.8) k/uL Monocytes # 0.5 (0-1.0) k/uL Eosinophils # 0.3 (0-0.7) k/uL Basophils # 0.0 (0-0.2) k/uL Hypochromasia Moderate Anisocytosis Slight PT 10.1 (10.0-12.5) sec INR 0.9 (<1.2) APTT 21.3 L (22.0-30.0) sec Sodium 134 L (137-145) mmol/L Potassium 4.5 (3.5-5.1) mmol/L Chloride 104 (98-107) mmol/L Carbon Dioxide 22 (22-30) mmol/L Anion Gap 8 mmol/L BUN 36 H (7-17) mg/dL Creatinine 1.36 H (0.52-1.04) mg/dL Est GFR (CKD-EPI)AfAm 44 (>60 ml/min/1.73 sqM) Est GFR (CKD-EPI)NonAf 38 (>60 ml/min/1.73 sqM) Glucose 81 (74-99) mg/dL Calcium 9.3 (8.4-10.2) mg/dL Total Bilirubin 0.5 (0.2-1.3) mg/dL AST 32 (14-36) U/L ALT 21 (4-34) U/L Alkaline Phosphatase 124 (38-126) U/L Total Protein 6.3 (6.3-8.2) g/dL Albumin 4.5 (3.5-5.0) g/dL Serum Alcohol <10 mg/dL - EKG Data -: EKG Interpreted by Me EKG Comments: 12-lead Electrocardiogram Interpretation Note EKG was reviewed and interpreted by myself. 12-lead ECG performed at 0836 is interpreted by me as revealing sinus bradycardia at a rate of 56 beats per minute. Clifton is normal. OR interval is 270 ms, QRS duration is 94 ms, QTc is 433 ms.. There were no ST or T wave abnormalities to suggest myocardial ischemia or injury. R wave progression across the precordium was satisfactory. By my interpretation this EKG is non-diagnostic for acute ischemia. Disposition Clinical Impression: Fall, Fracture, clavicle, Ribs, multiple fractures Disposition: HOME SELF-CARE Condition: Good Instructions (If sedation given, give patient instructions): How to Use an Incentive Spirometer (ED), Clavicle Fracture (ED), Rib Fracture (ED), Fall Prevention for Older Adults (ED) Additional Instructions: Follow-up with your technical documentation specialist. Limitations include no heavy lifting with the right upper extremity until follow-up with orthopedics for further information. Limit to 0 to 3 pounds in right upper extremity until you follow- up with orthopedics. Prescriptions: Lidocaine 5% Patch [Lidoderm 5% Patch] 1 patch TOPICAL DAILY PRN 14 Days #14 patch PRN Reason: Pain Is patient prescribed a controlled substance at d/c from ED?: No Referrals: Matty Brown MD [Primary Care Provider] - 1-2 days Time of Disposition: 10:24
[2023-12-07 09:28] VITALS: BP 134/64
[2023-12-07] MEDS: LIDOCAINE 4% PATCH TOPICAL ONE (09:29)
--- NOTE | 2023-12-07 10:12 | XR ---
EXAMINATION TYPE: XR pelvis AP view DATE OF EXAM: 12/07/2023 CLINICAL HISTORY: pain TECHNIQUE: Single view the pelvis is submitted. FINDINGS: No evidence for fracture, dislocation or bony lesion. Joint spaces are well-preserved. S I joints appear symmetric. IMPRESSION: 1. No acute fracture or dislocation seen. ICD 10 NO FRACTURE, INITIAL EVALUATION
--- NOTE | 2023-12-07 10:14 | XR ---
EXAMINATION TYPE: XR shoulder complete RT DATE OF EXAM: 12/07/2023 CLINICAL HISTORY: pain TECHNIQUE: Three views of the right shoulder are obtained. COMPARISON: 12/31/2021 FINDINGS: There is a fracture of the distal clavicle with mild widening of the right AC joint. Glenoh umeral joint space is unremarkable as is the proximal humerus. The visualized ribs are intact and unr emarkable. IMPRESSION: As above
--- NOTE | 2023-12-07 10:14 | XR ---
EXAMINATION TYPE: XR ankle limited RT DATE OF EXAM: 12/07/2023 COMPARISON: NONE HISTORY: Pain TECHNIQUE: Frontal, lateral images of the right ankle are obtained. COMPARISON: None. FINDINGS: There is no acute fracture/dislocation evident. The joint spaces appear within normal berger its. The overlying soft tissue appears unremarkable. IMPRESSION: There is no acute fracture or dislocation seen.
--- NOTE | 2023-12-07 10:15 | XR ---
EXAMINATION TYPE: XR tibia fibula RT DATE OF EXAM: 12/07/2023 CLINICAL HISTORY: pain TECHNIQUE: AP and lateral images of the right tibia and fibula are obtained. COMPARISON: None. FINDINGS: There is no acute fracture/dislocation evident. The joint spaces appear within normal berger its. The overlying soft tissue appears unremarkable. IMPRESSION: There is no acute fracture or dislocation seen. ICD 10 NO FRACTURE, INITIAL EVALUATION
--- NOTE | 2023-12-07 10:16 | XR ---
EXAMINATION TYPE: XR ribs RT w pa chest xray DATE OF EXAM: 12/07/2023 COMPARISON: NONE HISTORY: Pain TECHNIQUE: Single view of the chest 4 views of the ribs are submitted. FINDINGS: The lungs are clear. No Evidence for pneumothorax. No evidence for focal contusion. Medi astinal structures are midline. Evaluation of the ribs fails to demonstrate evidence for displaced r ib fracture or secondary sign of rib fracture. IMPRESSION: Negative study
[2023-12-07 10:55] VITALS: PULSE 56; RESP 18
== END 2023-12-07 10:55 | disposition home or self-care (01) ==
LOC: EC 07:44
DX: S42.001A Fracture of unspecified part of right clavicle, initial encounter for closed fracture (principal); S22.41XA Multiple fractures of ribs, right side, initial encounter for closed fracture; R00.1 Bradycardia, unspecified; Z88.6 Allergy status to analgesic agent; Z88.1 Allergy status to other antibiotic agents; Z88.5 Allergy status to narcotic agent; Z91.018 Allergy to other foods; Z88.8 Allergy status to other drugs, medicaments and biological substances; Z88.2 Allergy status to sulfonamides; Z91.030 Bee allergy status; Z91.041 Radiographic dye allergy status; W10.9XXA Fall (on) (from) unspecified stairs and steps, initial encounter
CPT/HCPCS: 99285; 96374; 96361 ×3; 36415; 93005; 80053; 85025; 85610; 85730; 80320; 71101; 72170; 73030; 73590; 73600; 72125; 70450; J1170

== ENCOUNTER 2023-12-17 14:32 | Emergency (ER) | payer MEDICARE, OTHER ==
[2023-12-17] MEDS ORDERED: HYDROmorphone 1 MG/ML 1 ML SYRINGE ONE (15:00)
--- NOTE | 2024-01-23 09:43 | XR ---
Site ID [facility] Patient Mercedez Spencer ID [id number] EXAMINATION TYPE: XR ankle complete RT DATE OF EXAM: 12/17/2023 5:20 PM CLINICAL INDICATION: Pain after fall, 3 days ago COMPARISON: THIS EXAM WAS READ DURING PACS DOWNTIME, NO PRIORS AVAILABLE. TECHNIQUE: XR ankle complete RT; ankle is imaged in frontal, lateral and oblique projections. FINDINGS: There is no evidence of acute osseous pathology. No evidence of subluxation or dislocation. Kager's fat pad is intact. Mild soft tissue swelling around the ankle. No radiopaque foreign bodies are ident ified. IMPRESSION: 1. No evidence of acute fracture. 2. Subcutaneous swelling around the ankle likely secondary to underlying soft tissue injury.
--- NOTE | 2024-01-23 09:45 | XR ---
Site ID [facility] Patient Mercedez Spencer ID [id number] EXAMINATION TYPE: XR knee complete RT DATE OF EXAM: 12/17/2023 5:23 PM CLINICAL INDICATION: Pain after fall, 3 days ago COMPARISON: THIS EXAM WAS READ DURING PACS DOWNTIME, NO PRIORS AVAILABLE. TECHNIQUE: XR knee complete RT; examined in Frontal, lateral and oblique projections. FINDINGS: No evidence of any acute osseous pathology, soft tissue swelling, or joint effusion is no katherine. Tricompartmental osteophyte formation involving the femoral condyles, tibial plateau and patella . Mild joint space narrowing. IMPRESSION: 1. No acute osseous pathology. 2. Moderate to severe tricompartmental osteoarthritic changes.
--- NOTE | 2024-01-23 09:45 | XR ---
Site ID [facility] default Patient Mercedez Spencer ID [id number] EXAMINATION TYPE: XR chest 2V DATE OF EXAM: 12/17/2023 5:22 PM CLINICAL INDICATION: Pain after fall, 3 days ago COMPARISON: THIS EXAM WAS READ DURING PACS DOWNTIME, NO PRIORS AVAILABLE. TECHNIQUE: XR chest 2V Frontal view of the chest. FINDINGS: Lungs/Pleura: There is no evidence of pleural effusion, focal consolidation, or pneumothorax. Pulmonary vascularity: Unremarkable. Heart/mediastinum: Cardiomediastinal silhouette is unremarkable. Musculoskeletal: Acute fracture of the right distal clavicle with superior migration. IMPRESSION: 1. Distal right clavicle fracture with superior migration of the clavicle. 2. No acute cardiopulmonary disease/process.
== END 2023-12-17 16:43 | disposition home or self-care (01) ==
LOC: EC 14:32
DX: S42.031A Displaced fracture of lateral end of right clavicle, initial encounter for closed fracture (principal); X58.XXXA Exposure to other specified factors, initial encounter
CPT/HCPCS: 73562; 73610; 71046; 99283; 96372; J1170